=== PATIENT | male | born 1970 | race Caucasian/White ===

== ENCOUNTER 2023-02-07 20:08 | Inpatient (IN) | payer OTHER, SELFPAY ==
--- NOTE | ~2023-02-07 | CT_ITS ---
EXAMINATION: CT HEAD WITHOUT CONTRAST CLINICAL INFORMATION: Stroke COMPARISON: None available. TECHNIQUE: Contiguous axial imaging was performed from the skull base to vertex without intravenous administration of contrast. This CT examination was performed using dose optimization techniques as appropriate, variously including the following: *Automated exposure control *Adjustment of mA and/or kV according to patient size (this includes techniques or standardized protocols for targeted exams where dose is matched to indication/reason for exam; i.e. extremities or head) *Use of iterative reconstruction technique DLP: 699 mGy-cm FINDINGS: There is no midline shift. There is no mass effect. There is no hemorrhage. The basal cisterns appear patent. The posterior fossa is grossly within normal limits. Some possible diffuse scattered areas of decreased attenuation in the white matter which may be consistent with ischemic change.. The region of the basal ganglion and internal capsule and head of caudate region is poorly defined. Ischemic change in these areas cannot be excluded. Area in the posterior occipital region of the white matter could represent a focal area of infarct or ischemia.. There is some possible loss of the yin-white matter differentiation here. Otherwise the yin-white matter differentiation is felt to be maintained. Grossly clear sinuses on the bone windows. CT/CT head/brain wo IV con IMPRESSION: This exam is felt to be abnormal. There is no midline shift or mass effect or hemorrhage. Subtle areas of decreased attenuation in the white matter in the brain as described in this young patient including the central regions which could represent areas of white matter infarction or white matter disease. In addition in the left occipital region some decreased attenuation with some loss of the yin-white matter differentiation could be an area of more acute or subacute infarct. Limited exam from artifact in the area. Recommendation is MRI to further evaluate in this patient with diffusion-weighted imaging.
--- OUTSIDE RECORDS SUMMARY | 2023-02-07 20:13 | XMS_ITS | Continuity of Care Document ---
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 Name Role Phone Brandin Valdez MD Primary Care Physician [phone] Encounter [facility] Date(s): 12/07/22 - 12/07/[address] [address]- Encounter Diagnosis Brain concussion(Final) - 12/07/22 Discharge Disposition: A-D/C Home Attending Physician: Pb Randall DO Admitting Physician: Pb Randall DO Referring Physician: Not on Staff, Referring MD Allergies, Adverse Reactions, Alerts Substance Reaction Severity Status vancomycin Active Immunizations Given and Recorded Vaccine Date Status Refusal Reason SARS-CoV-2 (COVID-19) mRNA-1273 vaccine 03/11/21 R ecorded SARS-CoV-2 (COVID-19) Ad26 vaccine 11/02/20 Record ed Medications aspirin 81 mg oral delayed release tablet 81 mg, 1, tablet, By Mouth, Daily, # 30 tablet, Refills 0, Tot. Refills 0, Maintenance, 09/24/22 16:47:00 EDT, Route to Pharmacy Electronically, [facility], Partial fill upon patient request if the prescription is for a schedule II opioi... Start Date: 09/24/22 Status: Ordered atorvastatin 10 mg oral tablet 1 tablet = 10 mg, By Mouth, Daily, # 30 tablet, 0 Refills, Maintenance, 09/24/22 14:23:00 EDT, Tablet, [facility], Partial fill upon patient request if the prescription is for a schedule II opioid drug., 170.7, cm, 09/23/22 22:36:00 EDT,... Start Date: 09/24/22 Status: Ordered brimonidine 0.2% ophthalmic solution See Instructions, 1 drops Every 8 hours to right eye, # 15 mL, 0 Refills, Maintenance, 09/24/22 14:22:00 EDT, Ophth Solution, [facility], Partial fill upon patient request if the prescription is for a schedule II opioid drug., 1 drops Ev... Start Date: 09/24/22 Status: Ordered carvedilol 3.125 mg oral tablet 3.125 mg, 1, tablet, By Mouth, 2 times a day, # 60 tablet, Refills 0, Tot. Refills 0, Maintenance, 09/24/22 14:22:00 EDT, Route to Pharmacy Electronically, [facility], Partial fill uponpatient request if the prescription is for a schedu... Start Date: 09/24/22 Status: Ordered duloxetine 30 mg oral enteric coated capsule 1 capsule = 30 mg, By Mouth, 2 times a day, # 60 capsule, 0 Refills, Maintenance, 09/24/22 16:47:00EDT, Capsule, [facility], Partial fill upon patient request if the prescription is for a schedule II opioid drug., 170.7, cm, 09/23/22 22... Start Date: 09/24/22 Status: Ordered Entresto 24 mg-26 mg oral tablet 1 tablet, By Mouth, 2 times a day, # 60 tablet, 0 Refills, Maintenance, 09/24/22 14:23:00 EDT, Tablet, [facility] 3, Partial fill upon patient request if the prescription is for a schedule II opioid drug., 1 tablet By Mouth 2 times a day,... Start Date: 09/24/22 Status: Ordered escitalopram 10 mg oral tablet 2 tablet = 20 mg, By Mouth, Daily, # 60 tablet, 0 Refills, Maintenance, 09/24/22 16:46:00 EDT, Tablet, [facility], Partial fill upon patient request if the prescription is for a schedule II opioid drug., 170.7, cm, 09/23/22 22:36:00 EDT,... Start Date: 09/24/22 Status: Ordered LORazepam 0.5 mg oral tablet 1 tablet = 0.5 mg, By Mouth, Daily at bedtime, PRN as needed for anxiety, (filled 01/25/22 14 tabs still has some), Maintenance, 02/20/22 12:54:00 EST, Tablet, ; Start Date: 02/20/22 Status: Ordered metFORMIN 1000 mg oral tablet 1 tablet = 1,000 mg, By Mouth, Daily before breakfast, # 30 tablet, 0 Refills, Maintenance, 09/24/22 16:46:00 EDT, Tablet, [facility], Partial fill upon patient request if the prescription is for a schedule II opioid drug., 170.7, cm, 06... Start Date: 09/24/22 Status: Ordered midodrine 5 mg oral tablet 5 mg, 1, tablet, By Mouth, 3 times a day, # 90 tablet, Refills 0, Tot. Refills 0, Maintenance, 09/24/22 14:23:00 EDT, Route to Pharmacy Electronically, [facility], Partial fill upon patient request if the prescription is for a schedule I... Start Date: 09/24/22 Status: Ordered topiramate 100 mg oral tablet 1 tablet = 100 mg, By Mouth, 2 times a day, # 60 tablet, 0 Refills, Maintenance, 09/24/22 16:46:00 EDT, [facility], Partial fill upon patient request if the prescription is for a schedule II opioid drug., 170.7, cm, 09/23/22 22:3... Start Date: 09/24/22 Status: Ordered Walker See Instructions, # 1 each, Maintenance, One, 05/26/22 16:32:00 EST, Supply Start Date: 05/26/22 Status: Ordered warfarin 5 mg oral tablet See Instructions, Take 2 to 3 tablets by mouth daily as directed by the [facility], # 270 tablet, 1 Refills, Maintenance, 07/23/22 11:24:00 EDT, Tablet, [facility] #[id number], Partial fill upon patient request if the prescription is for a schedule I... Start Date: 07/23/22 Status: Ordered warfarin 5 mg oral tablet 2-3 tablets, By Mouth, Daily, TAKE 2 TO 3 TABLETS PO DAILY DIRECTED BY [facility], # 90 tablet, 9 Refills, Maintenance, 09/25/22 11:40:00 EDT, [facility], Partial fill upon patient request if the prescription is for a schedule II... Start Date: 09/25/22 Status: Ordered warfarin 5 mg oral tablet See Instructions, Take 1 to 2 and 1/2 tablets by mouth daily as directed by the [facility], # 30 tablet, 4 Refills, Maintenance, 04/20/22 15:25:00 EST, Tablet, [facility], Partial fill upon patient request if the prescription is for... Start Date: 04/20/22 Status: Ordered warfarin 5 mg oral tablet See Instructions, take 2-3 tabs by mouth daily as directed by the [facility] clinic, # 270 tablet, 2Refills, Maintenance, 10/25/22 10:01:00 EDT, [facility]/pharmacy #[id number], Partial fill upon patient request if the prescription is for a schedule II opioid drug... Start Date: 10/25/22 Status: Ordered Problem List Condition Confirmation Course Effective Dates Status Health [facility] Informant COVID-19 1 Confirmed 05/11/22 Active Obese class I Confirmed Active Tubular adenoma of colon 2 Confirmed 01/18/22 Active 1Problem added by Discern Expert 2repeat screening colonoscopy in 2028 Results Radiology Reports * Exam Date Time Procedure Performing Provider Status 12/07/22 5:[address] Head/Brain W/O Contrast Mars Medina (Verified) Notes: (CT Head/Brain W/O Contrast) Reason For Exam: Trauma RESULT: CT Head/Brain W/O Contrast CT Head/Brain W/O Contrast INDICATION: Hx of Present Illness: fall; Reason: Trauma; Clinical Question(s): Subarachnoid Hemorrhage; Order Comment: TECHNIQUE: Noncontrast head CT using axial technique and reconstructed in axial and coronal planes.Iterative reconstruction techniques are used to optimize dose and image quality. CTDIvol Head: 45.02 mGy, DLP Head: 810 mGy*cm. COMPARISON: 11/01/2022 CT head. FINDINGS: Metal Flooring Installer view findings, lines and tubes: None. BRAIN AND EXTRA-AXIAL SPACES: No parenchymal hemorrhage, midline shift, or mass effect. Arreguin-white matter differentiation is wellpreserved. No acute infarct. Negative insular ribbon and hyperdense vessel signs. Moderate prominence of the ventricles and sulci consistent with parenchymal volume loss. Mild low-density white matter changes. No subarachnoid hemorrhage. No subdural or epidural collection. Small partially calcified extra-axial lesion along the right frontal (image 29 series 301), probably a small partially calcified meningioma. CALVARIUM, SKULL BASE, AND SOFT TISSUES: No fractures or suspicious bony lesions. The paranasal sinuses and mastoid air cells are clear. Visualized orbits and globes are intact. The extracranial soft tissues are unremarkable. IMPRESSION: No acute intracranial pathology. WSN: [id number] Ordering Physician: Pb Randall Dictated By: Familia Shaw MD Dictated Date/Time: 12/07/22 6:03 pm Reviewed By: Familia Shaw MD Signed By: Familia Shaw MD Signed Date/Time: 12/07/22 6:03 pm Transcribed By: ROBERT Transcribed Date/Time: 12/07/22 6:01 pm Vital Signs Most recent to oldest [Reference Range]: 1 2 Oxygen Saturation [94-100 %] 98 % (12/07/22 5:55 PM) 98 % (12/07/22 3:54 PM) Pulse Rate [55-90 bpm] 68 bpm (12/07/22 5:55 PM) 73 bpm (12/07/22 3:54 PM) Blood Pressure [90-138/55-84 mm Hg] 189/ 119mm Hg *H* (12/07/22 5:55 PM) 204/118mm Hg *H* (12/07/22 3:54 PM) Respiratory Rate [16-30 br/min] 18 br/mi n (12/07/22 5:55 PM) 18 br/min (12/07/22 3:54 PM) Temperature [96.8-100.4 DegF] 98.7 DegF (12/07/22 3:54 PM) Mode of Delivery (Oxygen) Room air (12/07/22 5:55 PM) Room air (12/07/22 3:54 PM) Temperature Route Oral (12/07/22 3:54 PM) Social History Social History Type Response Smoking Status Never (less than 100 in lifetime) entered on: 02/14/22 Sex Patient Care team information Care Team Personnel Name: Oziel Tapia RN Position: S RN Member Role: Primary Care Nurse Name: Aria Patel RN Position: [facility] Nurse Member Role: Primary Care Nurse Name: Summer Donis Position: [facility] RN Member Role: Primary Care Nurse Name: Albert Hernandez RN Position: [facility] RN Member Role: Primary Care Nurse Name: Yaneth Gray RN Position: [facility] SN RN Member Role: Primary Care Nurse Name: Sagrario Eden Position: [facility] RN Member Role: Primary Care Nurse Name: Brandin Valdez MD Position: [facility] Physician - Primary Care Member Role: PCP Address: Address: [address] [place] [address]- Name: Taras Yuen RN Position: [facility] RN Member Role: Primary Care Nurse Name: Aditi Clifton RN Position: [facility] RN Member Role: Primary Care Nurse Name: Mary Fisher Position: [facility] RN Member Role: Primary Care Nurse Name: Fatemeh Saldaña PharmD Position: [facility] Associate Professional Member Role: Lifetime Consulting Provider Address: Address: [address] [place] [address] [place] [address]- Name: Fatemeh Hernandez Position: [facility] Outreach Member Role: Lifetime Consulting Physician Name: Katt Márquez RN Position: [facility] RN Member Role: Primary Care Nurse Name: Nabeel Agarwal MD Position: [facility] Renal MD Member Role: Lifetime Consulting Physician Address: Address: [address] [place] [address] [address] [facility] [place] [address]- Name: Michaela Funes RN Position: [facility] RN Member Role: Primary Care Nurse Name: Susy Jose RN Position: [facility] RN Member Role: Primary Care Nurse Name: Brandon Stevens MD Position: [facility] Renal MD Member Role: Lifetime Consulting Physician Address: Address: [address] [facility] [place] [address]- [place] Name: Arabella Mcghee Position: [facility] Outreach Member Role: Lifetime Consulting Physician Name: Tangela Segovia LPN Position: [facility] RN Member Role: Primary Care Nurse [facility] Attending Position: [facility] ED Attendings Patient Name: Pb Randall DO Position: [facility] Resident Member Role: Admitting Physician Address: Address: [address] [place] [address] [place] [address]- [place] Name: Vicki Seay Position: [facility] ED TA [facility] Name: Glenda Fernandez RN Position: [facility] ED RN W/OE and Tasks Member Role: Patient Care Provider Care Team Related Persons Name: RONIHANS Address: home [address] [place] [address] Name: CHATO PARKS Address: [address] [place] [address]
--- OUTSIDE RECORDS SUMMARY | 2023-02-07 20:13 | XMS_ITS | Continuity of Care Document ---
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 Role Phone Brandin Valdez MD Primary Care Physician Encounter [facility] Date(s): 11/29/21 - 01/27/22 [facility] [address] [place] [id number] Attending Physician: [place] MD Referring Physician: Brandin Valdez MD Allergies, Adverse Reactions, Alerts Substance Reaction Severity Status vancomycin Active Immunizations Given and Recorded Vaccine Date Status Refusal Reason SARS-CoV-2 (COVID-19) mRNA-1273 vaccine 03/11/21 R ecorded SARS-CoV-2 (COVID-19) Ad26 vaccine 11/02/20 Record ed Medications ammonium lactate 12% topical lotion APPLY TO SOLES OF FEET DAILY. AT NIGHT WEAR SOCKS TO BED Start Date: 01/01/22 Status: Ordered atorvastatin 40 mg oral tablet 1 tablet = 40 mg, By Mouth, Daily, # 90 tablet, 0 Refills, Maintenance, 12/27/21 8:23:00 EDT, Tablet, Partial fill upon patient request if the prescription is for a schedule II opioid drug. Start Date: 12/27/21 Status: Ordered carvedilol 25 mg oral tablet 25 mg, 1, tablet, By Mouth, 2 times a day, # 180 tablet, Refills 0, Maintenance, 01/01/22 17:55:00 EDT, Partial fill upon patient request if the prescription is for a schedule II opioid drug. Start Date: 01/01/22 Status: Ordered escitalopram 10 mg oral tablet 1 tablet = 10 mg, By Mouth, Daily, # 90 tablet, 0 Refills, Maintenance, 12/27/21 8:22:00 EDT, Tablet, Partial fill upon patient request if the prescription is for a schedule II opioid drug. Start Date: 12/27/21 Status: Ordered hydrALAZINE 100 mg oral tablet 1 tablet = 100 mg, By Mouth, 3 times a day, with food Start Date: 12/27/21 Status: Ordered hydrOXYzine hydrochloride 25 mg oral tablet 1 tablet = 25 mg, By Mouth, 4 times a day, PRN for anxiety, # 40 tablet, 0 Refills, Maintenance, 12/27/21 8:24:00 EDT, Tablet, Partial fill upon patient request if the prescription is for a schedule II opioid drug. Start Date: 12/27/21 Status: Ordered Insulin Aspart FlexPen 100 units/mL injectable solution INJECT MAX OF 14 UNITS SUBCUTANEOUSLY PER SLIDING SCALE THREE TIMES A DAY Start Date: 01/01/22 Status: Ordered Insulin Glargine Inj 0.3 mL = 30 units, Subcutaneous Injection, Daily at bedtime, 0 Refills, Maintenance, 01/03/22 13:27:00 EDT, Injection, Partial fill upon patient request if the prescription is for a schedule II opioid drug. Start Date: 01/03/22 Status: Ordered loperamide 2 mg oral capsule 2 mg, 1, capsule, By Mouth, Every 3 hours, PRN, # 30 capsule, Refills 0, Tot. Refills 0, Maintenance, Loose Stool, 01/18/22 12:57:00 EDT, Route to Pharmacy Electronically, [facility] #[id number], Partialfill upon patient request if the prescription is fo... Start Date: 01/18/22 Status: Ordered topiramate 50 mg oral tablet 1 tablet = 50 mg, By Mouth, 2 times a day Start Date: 01/01/22 Status: Ordered warfarin 5 mg oral tablet 1 tablet = 5 mg, By Mouth, Daily, # 30 tablet, 1 Refills, Maintenance, 01/18/22 12:56:00 EDT, Tablet, [facility] #[id number], Partial fill upon patient request if the prescription is for a schedule II opioid drug., 168, cm, 01/18/22 7:30:00 EDT, Height, 1... Start Date: 01/18/22 Status: Ordered Problem List Condition Confirmation Course Effective Dates Status Health [facility] Informant Severe obesity Confirmed Active Tubular adenoma of colon 1 Confirmed 01/18/22 Active 1repeat screening colonoscopy in 2028 Patient Care team information Personnel Name: Brandin Valdez MD Address: Address: [address] [place] [address]
--- OUTSIDE RECORDS SUMMARY | 2023-02-07 20:13 | XMS_ITS | Continuity of Care Document ---
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 [address] [place], [place] [id number] Attending Physician: Angel Luis Evans Admitting Physician: AdmtrAngel Luis Referring Physician: Admtr, Ar8 Allergies, Adverse Reactions, Alerts Substance Reaction Severity Status vancomycin Active Immunizations Given and Recorded Vaccine Date Status Refusal Reason SARS-CoV-2 (COVID-19) mRNA-1273 vaccine 03/11/21 R ecorded SARS-CoV-2 (COVID-19) Ad26 vaccine 11/02/20 Record ed Not Given Vaccine Date Status Refusal Reason influenza virus vaccine, inactivated 01/30/22 Not Given Patient Refuses Medications ammonium lactate 12% topical lotion APPLY [...] opioid drug. Start Date: 12/27/21 Status: Ordered Blood Pressure Monitor See Instructions, # 1 each, Maintenance, check blood pressure 3 times a week or anytime when you don't feel well. keep a log book, 01/30/22 9:09:00 EDT, Supply, 168, cm, 01/30/22 8:31:00 EDT, Height,120.6, kg, 01/28/22 22:41:00 EDT, Dry Weight Start Date: 01/30/22 Status: Ordered carvedilol 25 mg oral tablet [...] opioid drug. Start Date: 12/27/21 Status: Ordered fluticasone 50 mcg/inh nasal spray 1 sprays, Nares, Both, 2 times a day, PRN Sinus Symptoms, 0 Refills, Maintenance, 01/29/22 0:10:00 EDT, [place], Partial fill upon patient request if the prescription is for a schedule II opioid drug. Start Date: 01/29/22 Status: Ordered hydrALAZINE 100 mg oral tablet [...] opioid drug. Start Date: 01/03/22 Status: Ordered LORazepam 0.5 mg oral tablet 1 tablet = 0.5 mg, By Mouth, Daily at bedtime, PRN as needed for anxiety, TAKE 1 TABLET BY MOUTH EVERY DAY AT BEDTIME NEEDED FOR 14 DAYS Start Date: 01/29/22 Status: Ordered MiraLax oral powder for reconstitution = 17 Gm, By Mouth, Daily, PRN Constipation, dissolve in water before taking take this once or twicedaily as needed if you do not have bowel movement for 3 days, # 255 Gm, 0 Refills, Acute 02/14/22 12:00:00 EDT, 01/31/22 14:51:00 EDT, REC Powder, B... Start Date: 01/31/22 Stop Date: 02/14/22 Status: Ordered topiramate 50 mg oral tablet 1 tablet = 50 mg, By Mouth, 2 times a day Start Date: 01/01/22 Status: Ordered warfarin 5 mg oral tablet 1 tablet = 5 mg, By Mouth, Daily, # 30 tablet, 1 Refills, Maintenance, 01/18/22 12:56:00 EDT, Tablet, [id number], Partial fill upon patient request if [...] Personnel Name: Brandin Valdez MD Address: Address: [address] [place] [id number]
--- OUTSIDE RECORDS SUMMARY | 2023-02-07 20:13 | XMS_ITS | Continuity of Care Document ---
Author Name Unknown Organization [facility] ter Address [address] [place] [address]- Care Team Providers Care Chemist Water Purification Name Role Phone Brandin Valdez MD Primary Care Physician [phone] Encounter [facility] Date(s): 05/12/22 - 05/13/[address] [address]- Discharge Disposition: A-D/C Home Attending Physician: Rocky Stephens MD Admitting Physician: Rocky Stephens MD Referring Physician: Not on Staff, Referring MD Allergies, Adverse Reactions, Alerts Substance Reaction Severity Status vancomycin Active Immunizations Given and Recorded Vaccine Date Status Refusal Reason SARS-CoV-2 (COVID-19) mRNA-1273 vaccine 03/11/21 R ecorded SARS-CoV-2 (COVID-19) Ad26 vaccine 11/02/20 Record ed Not Given Vaccine Date Status Refusal Reason influenza virus vaccine, inactivated 02/15/22 Not Given Parent Or Guardian Refuses influenza virus vaccine, inactivated 01/30/22 Not Given Patient Refuses Medications Alpha Lipoic 300 mg oral tablet 1 tablet = 300 mg, By Mouth, 2 times a day, for diabetic neuropathy ;stop if dizziness n/v, # 60 tablet, 2 Refills, Maintenance, 04/10/22 10:00:00 EST, Tablet, [id number], Partial fill upon patient request if the prescription is for a schedule... Start Date: 04/10/22 Stop Date: 07/09/22 Status: Ordered atorvastatin 40 mg oral tablet 1 tablet = 40 mg, By Mouth, Daily, 0 Refills, Maintenance, 12/27/21 8:23:00 EDT, Tablet, ; Start Date: 12/27/21 Status: Ordered Daily Vin oral tablet 1 tablet, By Mouth, Daily, Maintenance, 02/20/22 12:52:00 EST, Tablet, ; Start Date: 02/20/22 Status: Ordered escitalopram 10 mg oral tablet 1 tablet = 10 mg, By Mouth, Daily, 0 Refills, Maintenance, 12/27/21 8:22:00 EDT, Tablet, ; Start Date: 12/27/21 Status: Ordered hydrOXYzine hydrochloride 25 mg oral tablet 1 tablet = 25 mg, By Mouth, Daily at bedtime, PRN for anxiety, 0 Refills, Maintenance, 12/27/21 8:24:00 EDT, Tablet, ; Start Date: 12/27/21 Status: Ordered Insulin Aspart FlexPen 100 units/mL injectable solution INJECT MAX OF 14 UNITS SUBCUTANEOUSLY PER SLIDING SCALE THREE TIMES A DAY Start Date: 01/01/22 Status: Ordered Insulin Glargine Inj 0.1 mL = 10 units, Subcutaneous Injection, Daily, 0 Refills, Maintenance, 02/23/22 9:13:00 EST, Injection, Partial fill upon patient request if the prescription is for a schedule II opioid drug. Start Date: 02/23/22 Status: Ordered LORazepam 0.5 mg oral tablet 1 tablet = 0.5 mg, By Mouth, Daily at bedtime, PRN as needed for anxiety, (filled 01/25/22 14 tabs still has some), Maintenance, 02/20/22 12:54:00 EST, Tablet, ; Start Date: 02/20/22 Status: Ordered losartan 25 mg oral tablet 50 mg, 2, tablet, By Mouth, Daily, # 60 tablet, Refills 0, Tot. Refills 0, Maintenance, 02/18/22 7:13:00 EST, Route to Pharmacy Electronically, [facility], Partial fill upon patient request if the prescription is for a schedule II opioid... Start Date: 02/18/22 Status: Ordered metFORMIN 1000 mg oral tablet 1 tablet = 1,000 mg, By Mouth, Daily before breakfast Start Date: 02/15/22 Status: Ordered topiramate 100 mg oral tablet 1 tablet = 100 mg, By Mouth, 2 times a day, Maintenance, 02/20/22 12:52:00 EST, Tablet, ; Start Date: 02/20/22 Status: Ordered warfarin 3 mg oral tablet 3 tablet = 9 mg, By Mouth, Daily, dose to be adjusted as recommended by anticoagulation clinic, # 30 tablet, 0 Refills, Maintenance, 04/20/22 15:26:00 EST, Tablet, [facility], Partial fill upon patient request if the prescription is for... Start Date: 04/20/22 Stop Date: 05/20/22 Status: Ordered warfarin 5 mg oral tablet See Instructions, Take 1 to 2.5 tablets by mouth daily as directed by the [facility], # 225 tablet, 1 Refills, Maintenance, 04/13/22 17:25:00 EST, Tablet, [id number], Partial fill upon patient request if the prescription is for a schedule... Start Date: 04/13/22 Status: Ordered warfarin 5 mg oral tablet See Instructions, Take 1 to 2 and 1/2 tablets by mouth daily as directed by the [facility], # 30 tablet, 4 Refills, Maintenance, 04/20/22 15:25:00 EST, Tablet, [facility], Partial fill upon patient request if the prescription is for... Start Date: 04/20/22 Status: Ordered Problem List Condition Confirmation Course Effective Dates Status Health atus Informant COVID-19 1 Confirmed 05/11/22 Active Obese class II Confirmed Active Tubular adenoma of colon 2 Confirmed 01/18/22 Active 1Problem added by Discern Expert 2repeat screening colonoscopy in 2028 Results Radiology Reports * Exam Date Time Procedure Performing Provider Status 05/13/22 2:48 AM Chest Portable David Li; Auth (Julianne ified) Notes: (Chest Portable) Reason For Exam: trauma to chest with fall;Shortness of Breath RESULT: Chest Portable Chest Portable Hx of Present Illness: Pt states he was here yesterday, tested + covid and states he is [place] tripped over something and hit his head and chest and wasnts to be seen, INR today was 1.1 per pt; Reason: Shortness of Breath; trauma to chest with fall; Clinical Question(s): Pneumothorax; fractures COMPARISON: 05/11/2022. FINDINGS: LINES AND TUBES: None. LUNGS AND PLEURA: Clear lungs. Normal pulmonary vascularity. No pleural effusion. No pneumothorax. HEART, MEDIASTINUM AND JUDI: Prominent cardiomediastinal silhouette. BONES AND SOFT TISSUES: No acute abnormality. IMPRESSION: Prominent cardiac mediastinal silhouette without evidence of acute pulmonary pathology. WSN: [id number] Ordering Physician: Haydee Pablo Dictated By: Macey Jordan MD Dictated Date/Time: 05/13/22 6:45 am Reviewed By: Macey Jordan MD Signed By: Macey Jordan MD Signed Date/Time: 05/13/22 6:45 am Transcribed By: ROBERT Transcribed Date/Time: 05/13/22 6:44 am Vital Signs Most recent to oldest [Reference Range]: 1 2 3 Oxygen Saturation [94-100 %] 100 % (05/13/22 1:26 AM) 96 % (05/12/22 11:45 PM) 99 % (05/12/22 10:10 PM) Pulse Rate [55-90 bpm] 68 bpm (05/13/22 1:26 AM) 74 bpm (05/12/22 11:45 PM) 89 bpm (05/12/22 10:10 PM) Blood Pressure [90-138/55-84 mm Hg] 141/84mm Hg *H* (05/13/22 1:26 AM) 114/69mm Hg (05/12/22 11:45 PM) 113/68mm Hg (05/12/22 10:10 PM) Respiratory Rate [16-30 br/min] 16 br/min (05/13/22 1: AM) Temperature [96.8-100.4 DegF] 98.6 DegF (05/13/22 1: AM) 98.3 DegF (05/12/22 11:45 PM) 99.0 DegF (05/12/22 10:10 PM) Mode of Delivery (Oxygen) Room air (05/13/22 1:26 AM) Room air (05/12/22 11:45 PM) Room air (05/12/22 10:10 PM) Blood pressure sites Arm, left (05/13/22 1:26 AM) Arm, right (05/12/22 11:45 PM) Arm, right (05/12/22 10:10 PM) Temperature Route Oral (05/13/22 1:26 AM) Oral (05/12/22 11:45 PM) Oral (05/12/22 10:10 PM) Social History Social History Type Response Smoking Status Never (less than 100 in lifetime) entered on: 02/14/22 Sex Portable XR Chest Views * [facility] , CIS S: TRANSCRIBE Macey Jordan MD O: VERIFY Event Display: Result: Authored Date: [id number] Chest Portable Hx of Present Illness: Pt states he was here yesterday, tested + covid and states he is in [place] tripped over something and hit his head and chest and wasnts to be seen, INR today was 1.1 per pt; Reason: Shortness of Breath; trauma to chest with fall; Clinical Question(s): Pneumothorax; fractures COMPARISON: 05/11/2022. FINDINGS: LINES AND TUBES: None. LUNGS AND PLEURA: Clear lungs. Normal pulmonary vascularity. No pleural effusion. No pneumothorax. HEART, MEDIASTINUM AND JUDI: Prominent cardiomediastinal silhouette. BONES AND SOFT TISSUES: No acute abnormality. IMPRESSION: Prominent cardiac mediastinal silhouette without evidence of acute pulmonary pathology. WSN: [id number] Ordering Physician: Haydee Pablo Dictated By: Macey Jordan MD Dictated Date/Time: 05/13/22 6:45 am Reviewed By: Macey Jordan MD Signed By: Macey Jordan MD Signed Date/Time: 05/13/22 6:45 am Transcribed By: ROBERT Transcribed Date/Time: 05/13/22 6:44 am Patient Care team information Care Team Personnel Name: Oziel Tapia RN Position: [facility] RN Member Role: Primary Care Nurse Name: Aria Patel RN Position: [facility] AMB Nurse Member Role: Primary Care Nurse Name: Summer Donis Position: [facility] RN Member Role: Primary Care Nurse Name: Yaneth Gray RN Position: [facility] RN Member Role: Primary Care Nurse Name: Sagrario Eden Position: [facility] RN Member Role: Primary Care Nurse Name: Brandin Valdez MD Position: [facility] Physician (General Medicine) Member Role: PCP Address: Address: [address] [place] [id number]- Name: Taras Yuen RN Position: [facility] RN Member Role: Primary Care Nurse Name: Aditi Clifton RN Position: [facility] RN Member Role: Primary Care Nurse Name: Fatemeh Saldaña PharmD Position: [facility] Associate Professional Member Role: Lifetime Consulting Provider Address: Address: [address] [facility] [place] [address]- Name: Fatemeh Hernandez Position: [facility] Outreach Member Role: Lifetime Consulting Physician Name: Katt Márquez RN Position: [facility] RN Member Role: Primary Care Nurse Name: Nabeel Agarwal MD Position: [facility] Renal MD Member Role: Lifetime Consulting Physician Address: Address: [address] [facility] [address] [facility] [place] [address]- [place] Name: Michaela Funes RN Position: [facility] RN Member Role: Primary Care Nurse Name: Arabella Mcghee Position: [facility] Outreach Member Role: Lifetime Consulting Physician Name: Tangela Segovia LPN Position: [facility] RN Member Role: Primary Care Nurse Name: Haydee Pablo NP Position: [facility] Associate Professional Member Role: ED Physician Rug Sizer Address: Address: [address] [place] [address]- Name: Jillian Riojas RN Position: [facility] ED RN W/OE and Tasks Member Role: Patient Care Provider Name: Nena Finnegan [place] Position: [facility] ED TA [facility] Member Role: Roastmaster Name: Rocky Stephens MD Position: [facility] Resident Member Role: Admitting Physician Address: Address: [address] [place] [id number]- Care Team Related Persons Name: HANS TAMAYO Address: home [address] [place] [address] Name: CHATO PARKS Address: [address] [place] [address]
--- OUTSIDE RECORDS SUMMARY | 2023-02-07 20:13 | XMS_ITS | Continuity of Care Document ---
Author Name Unknown Organization [facility] Address [address] [place] [address]- Care Team Providers Care Groundskeeper Supervisor Name Role Phone Brandin Valdez MD Primary Care Physician [phone] Encounter [facility] Date(s): 10/05/21 - 11/04/21 [facility] [address] [place] [id number] Allergies, Adverse Reactions, Alerts No Known Allergies
--- OUTSIDE RECORDS SUMMARY | 2023-02-07 20:13 | XMS_ITS | Continuity of Care Document ---
Author Name Unknown Organization [facility] ter Address [address] [place] [id number] Care Team Providers Care Cordage Sales Representative Name Role Phone Brandin Valdez MD Primary Care Physician Encounter [facility] Date(s): 08/16/22 - 09/24/[address] [id number]- Encounter Diagnosis Dizziness(Final) - 08/16/22 Discharge Disposition: A-D/C Home Attending Physician: Scarlet Friend MD Admitting Physician: Charmaine Winslow MD Referring Physician: Not on Staff, Referring [...] inactivated 01/30/22 Not Given Patient Refuses Medications aspirin 81 mg oral delayed release tablet 81 mg, 1, tablet, By Mouth, Daily, # 30 tablet, Refills 0, Tot. Refills 0, Maintenance, 09/24/22 16:47:00 EDT, Route to Pharmacy Electronically, [facility], Partial fill upon patient request if the prescription is for a schedule II opioi... Start Date: 09/24/22 Status: Ordered atorvastatin 10 mg oral tablet 1 tablet = 10 mg, By Mouth, Daily, # 30 tablet, 0 Refills, Maintenance, 09/24/22 14:23:00 EDT, Tablet, [facility], Partial fill upon patient request if the prescription is for a schedule II opioid drug., 170.7, cm, 09/23/22 22:36:00 EDT,... Start Date: 09/24/22 Status: Ordered brimonidine 0.2% ophthalmic solution See Instructions, 1 drops Every 8 hours to right eye, # 15 mL, 0 Refills, Maintenance, 09/24/22 14:22:00 EDT, Ophth Solution, [facility], Partial fill upon patient request if the prescription is for a schedule II opioid drug., 1 drops Ev... Start Date: 09/24/22 Status: Ordered carvedilol 3.125 mg oral tablet 3.125 mg, 1, tablet, By Mouth, 2 times a day, # 60 tablet, Refills 0, Tot. Refills 0, Maintenance, 09/24/22 14:22:00 EDT, Route to Pharmacy Electronically, [facility], Partial fill uponpatient request if the prescription is for a schedu... Start Date: 09/24/22 Status: Ordered Coreg 6.25 mg oral tablet 3.125 mg, Tablet, By Mouth, 09/24/22 9:00:00 EDT Start Date: 09/24/22 Stop Date: 09/24/22 Status: Completed duloxetine 30 mg oral enteric coated capsule 1 capsule = 30 mg, By Mouth, 2 times a day, # 60 capsule, 0 Refills, Maintenance, 09/24/22 16:47:00EDT, Capsule, [facility], Partial fill upon patient request if the prescription is for a schedule II opioid drug., 170.7, cm, 09/23/22 22... Start Date: 09/24/22 Status: Ordered Entresto 24 mg-26 mg oral tablet 1 tablet, By Mouth, 2 times a day, # 60 tablet, 0 Refills, Maintenance, 09/24/22 14:23:00 EDT, Tablet, [facility], Partial fill upon patient request if the prescription is for a schedule II opioid drug., 1 tablet By Mouth 2 times a day,... Start Date: 09/24/22 Status: Ordered escitalopram 10 mg oral tablet 2 tablet = 20 mg, By Mouth, Daily, # 60 tablet, 0 Refills, Maintenance, 09/24/22 16:46:00 EDT, Tablet, [facility], Partial fill upon patient [...] Tablet, ; Start Date: 02/20/22 Status: Ordered Lovenox 100 mg/mL injectable solution = 100 mg, Subcutaneous Injection, Daily, *Note: Treatment = 1.5mg/kg/day, renal dosing = 1mg/kg/day*, # 7 each, 0 Refills, Acute 10/03/22 16:30:00 EDT, 09/27/22 14:28:00 EDT, [facility], Partial fill upon patient request if the prescript... Start Date: 09/27/22 Stop Date: 10/03/22 Status: Ordered metFORMIN 1000 mg oral tablet 1 tablet = 1,000 mg, By Mouth, Daily before breakfast, # 30 tablet, 0 Refills, Maintenance, 09/24/22 16:46:00 EDT, Tablet, [facility], Partial fill upon patient request if the prescription is for a schedule II opioid drug., 170.7, cm, 06... Start Date: 09/24/22 Status: Ordered midodrine 5 mg oral tablet 5 mg, Tablet, By Mouth, Hold if SBP >150, 09/24/22 9:00:00 EDT Start Date: 09/24/22 Stop Date: 09/24/22 Status: Completed midodrine 5 mg oral tablet 5 mg, 1, tablet, By Mouth, 3 times a day, # 90 tablet, Refills 0, Tot. Refills 0, Maintenance, 09/24/22 14:23:00 EDT, Route to Pharmacy Electronically, [facility], Partial fill upon patient request if the prescription is for a schedule I... Start Date: 09/24/22 Status: Ordered topiramate 100 mg oral tablet 1 tablet = 100 mg, By Mouth, 2 times a day, # 60 tablet, 0 Refills, Maintenance, 09/24/22 16:46:00 EDT, Tablet, [facility], Partial fill upon patient [...] 1 Refills, Maintenance, 07/23/22 11:24:00 EDT, Tablet, [id number], Partial fill upon patient request if the prescription is for a schedule I... Start Date: 07/23/22 Status: Ordered warfarin 5 mg oral tablet See Instructions, Take 1 to 2 and 1/2 tablets by mouth daily as directed by the [facility], # 30 tablet, 4 Refills, Maintenance, 04/20/22 15:25:00 EST, Tablet, [facility], Partial fill upon patient [...] Exam Date Time Procedure Performing Provider Status 09/17/22 3:55 PM NM Tumor SPECT Juancarlos Collins ( Verified) Notes: (NM Tumor SPECT) Reason For Exam: amyloidosis RESULT: NM Tumor SPECT Exam: NM Cardiac Planar and SPECT History: Cardiac amyloidosis. Technique: Planar imaging with 99mTc-PYP was performed with a dual head TaodangpuA SPECT/CT camera equipped with low-energy, high-resolution collimators. The patient received 24.6 mCi of 99mTc-PYP intravenously, and anterior, lateral, and left anterior oblique planar views were obtained at 1 hour over 8 minutes duration. The planar images were acquired with the heart centered in the field of view.A circular MANSOOR was drawn over the heart, copied, and mirrored over the contralateral chest to normalize for the spillover from the ribs. Mean total and absolute counts were measured correcting for background counts, and the fraction of mean counts in the heart DDA-cg-yyiuvufoqnuwh chest MANSOOR was calculated as the yzzym-sl-pffhzdbsjbepw (H/CL) ratio. The single-photon positive emission computed tomography (SPECT) coupled with CT imaging was performed. Comparison studies: CTA chest 04/05/2022, CT abdomen/pelvis 06/30/2022, MRI cardiac 09/08/2022 FINDINGS: The H/CL was calculated to be 1.3. A ratio greater than 1.5 is considered positive for transthyretin-related amyloid deposition. SPECT-CT of the heart demonstrated no significant myocardial uptake. Additional CT findings: Mild cardiomegaly. Stable partially calcified pulmonary nodule measuring 1.4 cm in the lingula abutting the left major fissure (series 1 image 46) with similar appearance since CTA chest of 10/25/2021. Finding likely represents a partially calcified granuloma. Status-post cholecystectomy. IMPRESSION: 1. No evidence of transthyretin-related cardiac amyloidosis; amyloid light-chain cardiac amyloidosis cannot be excluded. 2. No significant incidental findings. I have personally reviewed the images and I agree with this report. WSN: [id number] Ordering Physician: Clint Alfredo Dictated By: Janette Pimnetel DO Dictated Date/Time: 09/20/22 10:12 a Reviewed By: Juana Bennett MD Signed By: Juana Bennett MD Signed Date/Time: 09/20/22 10:17 am Transcribed By: ROBERT Transcribed Date/Time: 09/20/22 9:06 am * Exam Date Time Procedure Performing Provider Status 09/08/22 7:42 PM MRI Cardiac W+W/O Contrast Sheila Buck; Auth (Verified) Notes: (MRI Cardiac W+W/O Contrast) Reason For Exam: Cardiac Amyloidosis Suspected, Further Testing;Other: RESULT: MRI Cardiac W+W/O Contrast Examination: MRI Cardiac W+W/O Contrast. CLINICAL HISTORY:Reason: Other:; Cardiac Amyloidosis Suspected, Further Testing; Clinical Question(s): Other:; Order Comment: Please see Reference Text for complete list of contraindications. 51-year-old gentleman with history of nonischemic cardiomyopathy who is admitted to the hospital with left thalamic hemorrhage. Patient was on Coumadin for history of prior embolic CVA, pulmonary embolism, arterial and venous thrombosis. Previous work-up for coagulopathic condition is negative. Last echocardiogram was on 08/22/2022: The left ventricular size is normal. There is moderate to severe concentric left ventricular hypertrophy. The left ventricular ejection fraction is 35-45%. There is mild to moderate global hypokinesis with regional variation. Consider infiltrative process. Grade I, mild diastolic dysfunction with impaired LV relaxation. The left atrium is moderately dilated. The aortic valve is poorly visualized. There is no aortic stenosis. There is trace aortic regurgitation. The right ventricular size and function appears grossly normal. TECHNIQUE: Cardiac MR infiltrative disease/viability protocol on the SensorWave 1.5 Gissell scanner. Axial T2 dark blood. Short axis triple-IR T2. Multilevel cine FIESTA breathhold imaging performed in the short axis and 2-chamber, 3-chamber, and 4-chamber long axis orientations to evaluate cardiac function. The patient received 38 cc Clariscan (gadoterate meglumine) IV. Dynamic enhancement imaging performed using a rapid multilevel T1-weighted gradient echo sequence during contrast administration. Multiplanar late gadolinium enhancement phase sensitive inversion recovery T1 imaging performed after a 6-7 minute delay. Ventricular volumes based upon semiautomated contouring of cine short axis images performed by myself using Arterys. Normal ranges obtained from the software. COMPARISON: None. FINDINGS: Good image quality was obtained. LV: The left ventricular chamber size was borderline enlarged. There is myocardial thickening: Basal anterior wall 1.7 cm, basal lateral wall 1.6 cm, basal inferior wall 1.6 cm, basal septum 1.6cm. Mid septum 2.1 cm, mid anterior wall 1.3 cm, mid inferior wall 1.4 cm, mid lateral wall 1.4 cm. Apical myocardial thickness ranges from 1.1 to 1.5 cm. There is moderate, marked global hypokinesia, most pronounced in the septum. There are anterior lateral papillary muscle is of prominent size. LV parameters and (normal ranges) [facility] Male/Age 20-65/Field 1.5: Absolute values: Myocardial mass: 296 (85-181) g. End-diastolic volume: 250 (101-236) mL. End-systolic volume: 142 (28-93) mL. Stroke Volume: 108 (66-150) mL. Ejection fraction: 43 (55-74) %. Cardiac output: 7.1 L/min. Normalized values based on provided weight 92 kg, height 165 cm: 2 m-sq body surface area: Myocardial mass index: 145 (46-84) g/m-sq. End-diastolic volume index: 126 (52-112) mL/m-sq. End-systolic volume index: 71 mL/m-sq. Stroke volume index: 55 mL/m-sq. Cardiac index: 3.55 (L/min)/m-sq. Myocardial edema/T2 imaging reveals possible edema in the mid anterior wall, mid lateral wall. Dynamic perfusion imaging reveals no abnormality. Late gadolinium enhancement examination reveals remarkable abnormality: There is predominantly marked amount intramural increased signal in the basal- mid myocardium, image7 series 18, including focal near transmural enhancement at the RV insertion sites on the septum image 8 of series 18. The abnormal signal extends to the endocardium for instance image 9 of series 18, however the predominant pattern appears intramural rather than subendocardial. Such pattern suggests hypertrophic cardiomyopathy with differential including sarcoid, myocarditis, less likely amyloid. There is increased intramural signal in the distal inferior wall. The abnormal signal involves more than 20% of the total myocardium. RV: The RV chamber was of normal size. There was normal wall motion. RV parameters and (normal ranges): Absolute values: End-diastolic volume: 192 (110-243) mL. End-systolic volume: 88 (46-112) mL. Stroke Volume: 104 (60-136) mL. Ejection fraction: 54 (47-63) %. Cardiac output: 6.8 L/min. Normalized values: End-diastolic volume index: 97 (58-115) mL/m-sq. End-systolic volume index: 44 mL/m-sq. Stroke Volume index: 53 mL/m-sq. Cardiac index: 3.41 (L/min)/m-sq. Atria: The right atrium was of normal size. The left atrium was upper normal in size. Valves: There is trace regurgitation jet at the aortic valve, 3 chamber series 10. No abnormal flow jet is seen elsewhere. There is no LVOT narrowing or systolic anterior motion of the mitral valve anterior leaflet. Extracardiac: The pericardium was normal. Trace pericardial effusion. The thoracic aorta was of normal size. The main pulmonary artery measures 3.5 cm diameter, suggesting pulmonary hypertension. Incidental Findings: No significant incidental findings were seen. IMPRESSION: Borderline enlargement left ventricle. Myocardial thickening as detailed above with the mid septum up to 2.1 cm thickness. There is moderate, marked global hypokinesia that is most pronounced in the septum. LVEF 43%. There is remarkable abnormal delayed enhancement signal of the myocardium, with a predominantly intramural pattern, suggesting hypertrophic cardiomyopathy, differential including sarcoidosis, myocarditis, less likely amyloid. The abnormal signal involves more than 20% of the total myocardium. Trace regurgitation jet at the aortic valve. Normal size right ventricle with preserved wall motion. RVEF 54%. Normal biatrial size. The main pulmonary artery measures 3.5 cm diameter, suggesting pulmonary hypertension. WSN: [id number] Ordering Physician: Marcos Vidales Dictated By: Charlotte Escalante MD Dictated Date/Time: 09/09/22 11:02 p Reviewed By: Charlotte Escalante MD Signed By: Charlotte Escalante MD Signed Date/Time: 09/09/22 11:02 pm Transcribed By: ROBERT Transcribed Date/Time: 09/09/22 5:10 pm * Exam Date Time Procedure Performing Provider Status 08/26/22 3:16 PM US Doppler Ext Lower Venous Bilat Bettina Jeong; Arslan (Verified) Notes: (US Doppler Ext Lower Venous Bilat) Reason For Exam: iph with hx of pe screening for dvt to [facility];Other: RESULT: US Doppler Ext Lower Venous Bilat US Doppler Ext Lower Venous Bilat INDICATION: iph with hx of pe screening for dvt to [facility]; Clinical Question(s): Thrombosis COMPARISON: 02/16/2022 IMAGING TECHNIQUE: Ultrasound of the veins from the groin through the calf was performed using grayscale, color, and spectral Doppler ultrasound assessing for complete compressibility and normal flowcharacteristics. FINDINGS: RIGHT LOWER EXTREMITY: Common femoral vein: Patent. No thrombosis. Femoral vein: Patent. No thrombosis. Popliteal vein: Patent. No thrombosis. Gastrocnemius veins: The visualized portions are patent without evidence of thrombosis. Peroneal veins: The visualized portions are patent without evidence of thrombosis. Posterior tibial veins: The visualized portions are patent without evidence of thrombosis. LEFT LOWER EXTREMITY: Common femoral vein: Patent. No thrombosis. Femoral vein: Patent. No thrombosis. Popliteal vein: Patent. No thrombosis. Gastrocnemius veins: The visualized portions are patent without evidence of thrombosis. Peroneal veins: The visualized portions are patent without evidence of thrombosis. Posterior tibial veins: The visualized portions are patent without evidence of thrombosis. OTHER FINDINGS: Incidentally noted is slow flow in the popliteal veins bilaterally. IMPRESSION: No evidence of deep venous thrombosis. WSN: [id number] Ordering Physician: Khari Gibson Dictated By: Ashish Jackman MD Dictated Date/Time: 08/26/22 3:24 pm Reviewed By: Ashish Jackman MD Signed By: Ashish Jackman MD Signed Date/Time: 08/26/22 3:24 pm Transcribed By: ROBERT Transcribed Date/Time: 08/26/22 3:23 pm * Exam Date Time Procedure Performing Provider Status 08/18/22 1:49 AM MRI Brain W+W/O Contrast Balbir Feliciano cox monett (Verified) Notes: (MRI Brain W+W/O Contrast) Reason For Exam: hematoma, ?stroke w/ conversion;Other: RESULT: MRI Brain W+W/O Contrast MRI Brain W+W/O Contrast INDICATION / CLINICAL QUESTION: Reason: Other:; hematoma, ?stroke w conversion; Clinical Question(s): Infarction; Order Comment: Please see Reference Text for complete list of contraindications Infarction TECHNIQUE: MRI of the brain was performed with and without contrast utilizing sagittal and axial T1, axial T2, axial FLAIR, axial SWAN, and axial DWI sequences, and post-contrast 3D T1 NIEVES with multiplanar reformats. 20 mL of Clariscan was administered intravenously. COMPARISON: MRI of 02/15/2022, CT of 08/17/2022. FINDINGS: BRAIN and EXTRA-AXIAL SPACES: There is a 2.1 x 1.5 x 1.9 cm T1 hyperintense masslike lesion in the left thalamus most consistent with an evolving hematoma. There is mild surrounding FLAIR hyperintensity suggesting mild surrounding vasogenic edema. There is no significant mass effect. There is no midline shift, or effacement of the basal cisterns. On diffusion- weighted imaging, there are a few punctate foci of abnormal diffusion in the left anterolateral frontal cortex and left occipital cortex without definite restricted diffusion may represent late subacute infarcts. Extensivefoci of microhemorrhages throughout the supratentorial and infratentorial brain are redemonstrated,mildly progressed since prior examination. Moderate patchy foci of T2 prolongation are seen in the white matter and in the raysa. Chronic lacunar infarcts in the right thalamus and raysa and right inferior cerebellum are redemonstrated. The midline structures are unremarkable. Ventricles, cisterns, and sulci are normal in size and configuration, without hydrocephalus. No abnormal extra-axial fluid collections are seen. Meningeal surfaces are normal. No other abnormal intracranial enhancement is seen. Major intracranial flow voids are present. EXTRACRANIAL SOFT TISSUES: Orbits are unremarkable. There is a mucous retention cyst or polyp in the left maxillary sinus. Paranasal sinuses and mastoids are otherwise unremarkable. BONES: Marrow signal is preserved. IMPRESSION: Evolving left thalamic intraparenchymal hematoma with mild surrounding vasogenic edema. Mildly progressed extensive supratentorial and infratentorial microhemorrhages which may be relatedto hypertensive microhemorrhages, however other etiologies such as cerebral amyloid angiopathy needto be excluded. Clinical correlation and appropriate follow-up is advised. Punctate foci of abnormal diffusion in the left supratentorial brain as described may be related tolate subacute infarcts. Moderate nonspecific white matter T2 hyperintensities likely sequela of chronic microangiopathy. WSN: [id number] Ordering Physician: Angie Carlton Dictated By: Tania Manrique MD Dictated Date/Time: 08/18/22 1:30 pm Reviewed By: Tania Manrique MD Signed By: Tania Manrique MD Signed Date/Time: 08/18/22 1:30 pm Transcribed By: ROBERT Transcribed Date/Time: 08/18/22 12:53 pm * Exam Date Time Procedure Performing Provider Status 08/17/22 8:[address] Head/Brain W/O Contrast Cony Nicolas; Auth (Verified) Notes: (CT Head/Brain W/O Contrast) Reason For Exam: IPH, f/u scan, 9 PM;Other: RESULT: CT Head/Brain W/O Contrast CT Head/Brain W/O Contrast INDICATION: Reason: Other:; IPH, f u scan, 9 PM; Clinical Question(s): Hematoma; Order Comment: TECHNIQUE: Noncontrast head CT using axial technique and reconstructed in axial and coronal planes.Iterative reconstruction techniques are used to optimize dose and image quality. CTDIvol Head: 45.70 mGy, DLP Head: 773 mGy*cm. COMPARISON: Head CT earlier today at 2:49 PM FINDINGS: Clasp Machine Operator view findings, lines and tubes: None. BRAIN AND EXTRA-AXIAL SPACES: Redemonstration of a 2.2 cm maximal dimension intraparenchymal hematoma centered within the left lateral thalamus which is not significantly changed. There is mild edema extending into the posterior limb of the left internal capsule unchanged. There is no associated mass effect or midline shift. No intraventricular extension. No new focus of hemorrhage. Arreguin-white matter differentiation is well preserved without CT signs of acute ischemic infarct. Small chronic lacunar infarct is noted in the right thalamus. Chronic lacunar infarct also noted in theright cerebellum. These findings are similar to prior. Negative insular ribbon sign. Atherosclerotic vascular calcification of the carotid arteries but negative hyperdense vessel sign. Ventricles, sulci, and basilar cisterns are normal. Mild low-density white matter changes. No subarachnoid hemorrhage. No subdural or epidural collection. CALVARIUM, SKULL BASE, AND SOFT TISSUES: No fractures or suspicious bony lesions. These retention cysts in the left greater than right maxillary sinuses, without fluid levels. Remaining paranasal sinuses and mastoids are clear. Visualized orbits and globes are intact. The extracranial soft tissues are unremarkable. IMPRESSION: Stable 2.2 cm intraparenchymal hematoma within the left lateral thalamus. No significant mass effect or edema. No new area of hemorrhage. WSN: [id number] Ordering Physician: Angie Carlton Dictated By: Ashish Thomas MD Dictated Date/Time: 08/17/22 10:42 p Reviewed By: Ashish Thomas MD Signed By: Ashish Thomas MD Signed Date/Time: 08/17/22 10:42 pm Transcribed By: ROBERT Transcribed Date/Time: 08/17/22 10:40 pm * Exam Date Time Procedure Performing Provider Status 08/17/22 3:[address] Head/Brain W/O Contrast Miesha López ra; Auth (Verified) Notes: (CT Head/Brain W/O Contrast) Reason For Exam: ICH patient on coumadin with dyscojugate gaze, ataxia;Other: RESULT: CT Head/Brain W/O Contrast CT Head/Brain W/O Contrast INDICATION: Reason: Other:; ICH patient on coumadin with dysconjugate gaze, ataxia; Clinical Question(s): Other:; ich TECHNIQUE: Noncontrast head CT using axial technique and reconstructed in axial and coronal planes.Iterative reconstruction techniques are used to optimize dose and image quality. CTDIvol Head: 53.23 mGy, DLP Head: 2112 mGy*cm. COMPARISON: CT head 06/30/2022. FINDINGS: Clasp Machine Operator view findings, lines and tubes: None. BRAIN AND EXTRA-AXIAL SPACES: There is focal hyperdense intraparenchymal hematoma in the left thalamus, new from 06/30/2022, measuring 2.4 x 1.4 x 1.6 cm. Margins are slightly indistinct. There is surrounding edema in the left thalamus extending to the posterior limb of the internal capsule and adjacent white matter of the temporal stem. However, there is no significant mass effect, midline shift, or effacement of basal cisterns. Arreguin-white matter differentiation is well preserved without CT signs of acute ischemic infarct. Small chronic lacunar infarct is noted in the right thalamus. Chronic lacunar infarct also noted in theright cerebellum. These findings are similar to prior. Negative insular ribbon sign. Atherosclerotic vascular calcification of the carotid arteries but negative hyperdense vessel sign. Ventricles, sulci, and basilar cisterns are normal. Mild low-density white matter changes. No subarachnoid hemorrhage. No subdural or epidural collection. CALVARIUM, SKULL BASE, AND SOFT TISSUES: No fractures or suspicious bony lesions. These retention cysts in the left greater than right maxillary sinuses, without fluid levels. Remaining paranasal sinuses and mastoids are clear. Visualized orbits and globes are intact. The extracranial soft tissues are unremarkable. IMPRESSION: New 2.4 cm left thalamic hematoma with surrounding edema. This critical result was communicated to Dr. Janusz STEWART on 08/17/2022 3:23 PM and it was ascertained that the content and urgency of the report was understood at the time of direct communication. WSN: [id number] Ordering Physician: Janusz Wellington Dictated By: Vicki Ray MD Dictated Date/Time: 08/17/22 3:27 pm Reviewed By: Vicki Ray MD Signed By: Vicki Ray MD Signed Date/Time: 08/17/22 3:27 pm Transcribed By: ROBERT Transcribed Date/Time: 08/17/22 3:13 pm * Exam Date Time Procedure Performing Provider Status 08/17/22 3:[address] Angio Neck Deloris López; Arslan (Julianne ified) Notes: (CT Angio Neck) Reason For Exam: ICH patient on coumadin with dyscojugate gaze, ataxia;Other: RESULT: CT Angio Neck CT Angio Head, CT Angio Neck Reason: Other:; ICH patient on coumadin with dyscojugate gaze, ataxia; Clinical Question(s): Other:; ich; Order Comment: / Other: TECHNIQUE: CT angiogram of the head and neck was performed after bolus administration of intravenous contrast. 100 mL of Omnipaque 300 was administered intravenously. Coronal and sagittal MIP reformatted images were obtained. Additional 3-D images were created on a separate workstation under concurrent supervision by the attending radiologist. All stenoses are measured using NASCET criteria. Weight-based protocol using automatic tube modulation was used to optimize exposure parameters. RADIATION DOSE PARAMETERS: CTDIvol Head: 53.23 mGy, DLP Head: 2112 mGy*cm. COMPARISON: Noncontrast CT head performed concurrently. CTA of the head and neck dated 06/30/2022. FINDINGS: CTA OF THE NECK: Arch: There is a three vessel aortic arch. There is mild atherosclerotic plaque of the aortic arch,but origins of the supra aortic vessels are patent. Right carotid system: The common carotid and cervical internal carotid arteries are patent. There is calcified atherosclerotic plaque at the carotid bifurcation, but no ICA stenosis (0%) by NASCET criteria. Left carotid system: The common carotid and cervical internal carotid arteries are patent. There iscalcified atherosclerotic plaque at the carotid bifurcation, but no ICA stenosis (0%) by NASCET criteria. There is a [id number] vertebral artery system. Right vertebral: No significant stenosis. No evidence of dissection or aneurysm. Left vertebral: No significant stenosis. No evidence of dissection or aneurysm. Other: Soft tissues and bones: No evidence of lymphadenopathy. Prominence of the palatine tonsils is againnoted, left greater than right. Enlarged pulmonary artery could reflect pulmonary hypertension. Thethyroid is unremarkable. Visualized lungs are blurred by motion artifact, without significant superi mposed airspace opacity. No acute osseous abnormality. CTA OF THE HEAD: Anterior circulation: Bilateral intracranial ICAs demonstrate atherosclerotic calcification, without stenosis. Bilateral MAURI and MCA branches are patent. There is no significant stenosis, proximal cutoff, aneurysm, or vascular malformation. Hypoplastic right A1 segment, anatomic variant. Posterior circulation: Bilateral intracranial vertebral arteries, the basilar artery, and bilateralsuperior cerebellar and posterior cerebral branches are patent. There is no significant stenosis, proximal cutoff, aneurysm, or vascular malformation. Veins: Major dural venous sinuses are patent. Other: Soft tissues and bones: Left thalamic hemorrhage with surrounding edema. Please refer to the separate head CT. No active extravasation is demonstrated. Orbits are unremarkable. Mucous retention cysts in the left maxillary sinus and right maxillary sinus. IMPRESSION: No proximal occlusion or high grade stenosis in the major arteries of the head and neck. Left thalamic hemorrhage with surrounding edema. Please refer to separate head CT. Enlarged pulmonary artery suggesting pulmonary hypertension. WSN: [id number] Ordering Physician: Janusz Wellington Dictated By: Kailey Guerrero MD Dictated Date/Time: 08/17/22 3:57 pm Reviewed By: Kailey Guerrero MD Signed By: Kailey Guerrero MD Signed Date/Time: 08/17/22 3:57 pm Transcribed By: ROBERT Transcribed Date/Time: 08/17/22 3:12 pm * Exam Date Time Procedure Performing Provider Status 08/17/22 3:[address] Angio Head Deloris López; Arslan (Julianne ified) Notes: (CT Angio Head) Reason For Exam: ICH patient on coumadin with dyscojugate gaze, ataxia;Other: RESULT: CT Angio Head CT Angio Head, CT Angio Neck Reason: Other:; ICH patient on coumadin with dyscojugate gaze, ataxia; Clinical Question(s): Other:; ich; Order Comment: / Other: TECHNIQUE: CT angiogram of the head and neck was performed after bolus administration of intravenous contrast. 100 mL of Omnipaque 300 was administered intravenously. Coronal and sagittal MIP reformatted images were obtained. Additional 3-D images were created on a separate workstation under concurrent supervision by the attending radiologist. All stenoses are measured using NASCET criteria. Weight-based protocol using automatic tube modulation was used to optimize exposure parameters. RADIATION DOSE PARAMETERS: CTDIvol Head: 53.23 mGy, DLP Head: 2112 mGy*cm. COMPARISON: Noncontrast CT head performed concurrently. CTA of the head and neck dated 06/30/2022. FINDINGS: CTA OF THE NECK: Arch: There is a three vessel aortic arch. There is mild atherosclerotic plaque of the aortic arch,but origins of the supra aortic vessels are patent. Right carotid system: The common carotid and cervical internal carotid arteries are patent. There is calcified atherosclerotic plaque at the carotid bifurcation, but no ICA stenosis (0%) by NASCET criteria. Left carotid system: The common carotid and cervical internal carotid arteries are patent. There iscalcified atherosclerotic plaque at the carotid bifurcation, but no ICA stenosis (0%) by NASCET criteria. There is a [id number]-pdzg-pwzcygyv vertebral artery system. Right vertebral: No significant stenosis. No evidence of dissection or aneurysm. Left vertebral: No significant stenosis. No evidence of dissection or aneurysm. Other: Soft tissues and bones: No evidence of lymphadenopathy. Prominence of the palatine tonsils is againnoted, left greater than right. Enlarged pulmonary artery could reflect pulmonary hypertension. Thethyroid is unremarkable. Visualized lungs are blurred by motion artifact, without significant superi mposed airspace opacity. No acute osseous abnormality. CTA OF THE HEAD: Anterior circulation: Bilateral intracranial ICAs demonstrate atherosclerotic calcification, without stenosis. Bilateral MAURI and MCA branches are patent. There is no significant stenosis, proximal cutoff, aneurysm, or vascular malformation. Hypoplastic right A1 segment, anatomic variant. Posterior circulation: Bilateral intracranial vertebral arteries, the basilar artery, and bilateralsuperior cerebellar and posterior cerebral branches are patent. There is no significant stenosis, proximal cutoff, aneurysm, or vascular malformation. Veins: Major dural venous sinuses are patent. Other: Soft tissues and bones: Left thalamic hemorrhage with surrounding edema. Please refer to the separate head CT. No active extravasation is demonstrated. Orbits are unremarkable. Mucous retention cysts in the left maxillary sinus and right maxillary sinus. IMPRESSION: No proximal occlusion or high grade stenosis in the major arteries of the head and neck. Left thalamic hemorrhage with surrounding edema. Please refer to separate head CT. Enlarged pulmonary artery suggesting pulmonary hypertension. 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 [employer] called as pt alondra lightheaded and passed out, denies hitting his head. POC glucose was not checked but pt was given OJx2 by [employer]; Reason: Shortness of Breath; Clinical Question(s): CHF COMPARISON: 05/13/2022 FINDINGS: No acute cardiopulmonary process IMPRESSION: No acute abnormality. Normal exam WSN: [id number] Ordering Physician: Brandon Moore Dictated By: Juancarlos Mota MD Dictated Date/Time: 08/16/22 9:46 am Reviewed By: Juancarlos Mota MD Signed By: Juancarlos Mota MD Signed Date/Time: 08/16/22 9:46 am Transcribed By: ROBERT Transcribed Date/Time: 08/16/22 9:45 am Vital Signs Most recent to oldest [Reference Range]: 1 2 3 4 Height 170.7 cm (09/23/22 10:36 PM) 170.7 cm (09/23/22 10:36 PM) 170.7 cm (09/23/22 8:15 PM) Weight 95.3 kg (09/23/22 6:39 AM) 91.1 kg (09/07/22 6:00 AM) 92.7 kg (08/31/22 7:53 AM) Oxygen Saturation [94-100 %] 100 % (09/24/22 3:00 PM) 100 % (09/24/22 11:00 AM) 100 % (09/24/22 8:00 AM) Pulse Rate [55-90 bpm] 84 bpm (09/24/22 3:00 PM) 63 bpm (09/24/22 11:00 AM) 62 bpm (09/24/22 9:05 AM) 62 bpm (09/24/22 9:05 AM) Body Mass Index [18.5-24.99 kg/m2] 33.01 kg/m2 *>HHI* (08/23/22 8:34 AM) 31.23 kg/m2 *>HHI* (08/17/22 12:24 PM) Blood Pressure [90-138/55-84 mm Hg] 146/94mm Hg *H* (09/24/22 3:00 PM) 157/91mm Hg *H* (09/24/22 11:00 AM) 149/81mm Hg *H* (09/24/22 9:05 AM) 149/81mm Hg *H* (09/24/22 9:05 AM) Respiratory Rate [16-30 br/min] 18 br/min (09/24/22 3:00 PM) 18 br/min (09/24/22 11:00 AM) 18 br/min (09/24/22 8:00 AM) Temperature [96.8-100.4 DegF] 98.1 DegF (09/24/22 3:00 PM) 97.5 DegF (09/24/22 11:00 AM) 97.2 DegF (09/24/22 8:00 AM) Liters per Minute 0 L/min (08/17/22 8:00 PM) Mode of Delivery (Oxygen) Room air (09/24/22 3:00 PM) Room air (09/24/22 11:00 AM) Room air (09/24/22 8:00 AM) Blood pressure sites Arm, left (09/24/22 3:00 PM) Arm, left (09/24/22 11:00 AM) Arm, left (09/24/22 8:00 AM) Temperature Route Temporal (09/24/22 3:00 PM) Temporal (09/24/22 11:00 AM) Temporal (09/24/22 8:00 AM) Dry Weight 91 kg (08/17/22 12:24 PM) Weight Obtained Via Bed scale (09/07/22 6:00 AM) Bed scale (08/31/22 7:53 AM) Bed scale (08/30/22 8:11 AM) Social History Social History Type Response Smoking Status Never (less than 100 in lifetime) entered on: 02/14/22 Sex History and physical note * Angie Pina: MODIFY, MODIFY, MODIFY, MODIFY, MODIFY, MODIFY, MODIFY, MODIFY, PERFORM, MODIFY, MODIFY, MODIFY, MODIFY, MODIFY, MODIFY Event Display: History and Physical Hospital Authored Date: Patient: ??AYDEN TAMAYO ? Age:??51 Years?Sex:??Male?:??1970?? Chief Complaint/Reason for Consultation L thalamic IPH History of Present Illness 51 yo male with PMH PE on coumadin, htn, hld, dm, neuropathy, CHF, with hx stroke (suspected coagulopathy with venous and arterial thrombosis on coumadin) who was admitted to [facility] on 08/16 with dizziness, now found to have IPH, being admitted to [facility]U. ?? History obtained via chart. Pt initially presented to [facility] on 08/16 with dizziness. He works at [facility] [email or web address] and states he developed dizziness with standing. He through his blood sugar was low anddrank orange juice with slight improvement but not resolution. In the ED, trop was 46 and repeat 35. He had INR 3.7. He was given asa 975 mg..??He did not undergo head imaging. He was given 1 L IVF and admitted to the obs unit for dizziness of unclear etiology. SBP max 216. ?? On 08/17, neurology was consulted for continued dizziness. He had no head imaging in [facility] and thus STAT CTH/A was done by neurology team??and he was found to have L thalamic IPH. His INR was 4.4. He wasordered for STAT K centra and Vit K and was admitted to [facility]CCU. He was started on nicardipine for SBP<150. ? Review of Systems ?General: Denies weight changes, fatigue, fever, chills ?Skin: denies rash, bites ?Eyes: denies visual changes, blurry vision ?ENT: denies hearing changes ?Cardiovascular: denies chest pain ?Respiratory: denies SOB ?GI: denies abdominal pain, nausea, vomiting, diarrhea ?: denies loss of bladder or bowel function ?Musculoskeletal: denies muscle weakness, swelling ?Neurological: +blurry vision;??denies headache, dizziness, , hearing changes, trouble swallowing, slurring, word finding difficulties, weakness, paresthesias Objective Measurements?? Height: 170.7 cm (08/17/22) Weight: 91 kg (08/17/22) Dry Weight: 91 kg (08/17/22) Body Mass Index:??31.23 kg/m2??Critical (08/17/22) ? Vital Signs?? Temperature: 97.8 DegF (08/17/22 13:15:00) Temperature Route: Oral (08/17/22 13:15:00) Pulse Rate: 71 bpm (08/17/22 13:15:00) Respiratory Rate: 17 br/min (08/17/22 13:15:00) Vented: No (08/17/22 11:07:00) Systolic Blood Pressure:??181 mm Hg??High (08/17/22 13:15:00) Diastolic Blood Pressure:??97 mm Hg??High (08/17/22 13:15:00) Blood pressure sites: Arm, left (08/17/22 13:15:00) Mean Arterial Pressure: 125 mm Hg (08/17/22 13:15:00) Pulse Pressure: 84 mm Hg (08/17/22 13:15:00) Oxygen Saturation: 97 % (08/17/22 13:15:00) Mode of Delivery (Oxygen): Room air (08/17/22 13:15:00) Early Warning Score: 2 (08/17/22 13:15:53) ? Ventilator Settings?? No qualifying data available. ? Intake/Output? No Data Available ? Physical Exam ?? General Exam Appearance: Appears comfortable and appropriate, in no acute distress. Appears stated age.? HEENT: Normocephalic, atraumatic.? Cardiac: Regular rate and rhythm ?? Respiratory: Normal inspiration and expiration ?? Rheumatologic: No swelling, deformities or tenderness ?? Dermatologic: No significant skin lesions, rash, or bruising ?? Extremities: No edema or stasis changes ?? Psychiatric: Not depressed or anxious. Full and appropriate Affect. ?? Neurologic: Mentation: Awake, alert. Patient is oriented to person, place, time, and situation. speech clear. 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 VF c/o blurry vision on right, but evans are full Motor: Normal bulk/tone. Strength 5/5 UEs and LEs. Nutritional Services Director equal. RUE drift Sensation: In tact to light touch of UEs and LEs, no extinction to DTS Coordination: Finger to nose smooth on L, ?ataxic on R Gait:?? deferred Assessment/Plan 51 yo male with PMH PE on coumadin, htn, hld, dm, neuropathy, CHF, with hx stroke (suspected coagulopathy with venous and arterial thrombosis on coumadin) who was admitted to [facility] on 08/16 with dizziness, who neurology was asked to see 08/17 for continued dizziness and obtained CTH/A which revealed L thalamic IPH,??given STAT K centra and Vit K, started on nicardipine gtt and now??being admitted to NCCU. ?? Neuro L thalamic IPH -??PBD 1??(sx onset/presentation 08/16) - ICH score 0 - ?stroke with conversion vs hypertensive IPH vs lesion?- INR 4.4 Depression - q1h neurochecks - s/p STAt k centra and Vit K - repeat CTH 6 hours - 9 PM - MRI brain with and without TAMAR - SBP <150, nicardipine prn?? - HOB >30 degrees - telemetry - hold antithrombotics - NPO until cleared - PM&R on hold currently - STAT CTH w/ any change in mental status - DVT prophylaxis: venodynes for now, hold SQH? - continue escitalopram - continue topamax? CV HTN HLD CHF Hypertensive emergency , SBP max 216 - monitor, tele - SBP goal??< 150, nicardipine gtt if needed - statin - continue carvedilol, hydralizine, losartan - MAP >65? Pulm?? Hx PE on AC - spO2 goal >92%?? -??holding AC in the setting of IPH ?? Renal?? No active issues, Cr??1.2 - monitor I&O - monitor BUN/Cr?? - K goal >4 and Mag>2, electrolyte protocol - monitor Na, stable. ?? No issues - bladder scan q4h, straight cath for retention >400 cc, borja for retention >800 cc? GI/FEN No issues - FEN:??passed bedside swallow by RN - resume diabetic diet - Maintain bowel regimen for goal BM??qod? Heme?? Supratherapeutic INR - s/p kcentra and Vit K for INR 4.4 and IPH - repeat labs at 9 PM -??goal??Hgb>7 - Goal INR<1.5 and??Plt??> 100,000 ?? Endo?? Hx DM?? - monitor - Goal glucose 120-180 - ISS - lantus 10u qd - POC tid before meals and??bedtime ?? ID?? No issues - afebrile, no infectious concerns - monitor - if Temp 101 or greater, will send UA, CXR, blood cx and sputum cx? ICU Quality Measures DVT ppx: venodynes, hold SQH FEN: passed bedside swallow by RN, resume diabetic diet Lines/tubes: PIVs Restraints:??not needed Code: FULL?? Emergency contact:?? CHATO PARKS?Relation to Pt: Mother ?[address] ? [place] [address] ?Cell ? dispo:??ICU level care ? Discussed and seen with NCCU attending, ??Arden Pt is critically ill due IPH/AC needing reversal, I spent ?20 ??minutes of non overlapping critical care time evaluating and managing the patient as part of a split/shared visit with Dr. Tolbert/Karine/Arden ? Histories Allergies Allergies ?(Active and Proposed Allergies Only) vancomycin? (Severity: Unknown severity, Onset: Unknown) ? Past Medical History/Problem List Active Problems??(5) COVID-19 Dizziness Obese class I Tubular adenoma of colon Urinary tract infection ? Past Surgical History Colonoscopy: 01/17/22 Esophagogastroduodenoscopy and biopsy: 01/17/22 Cholecystectomy: 02/14/14 ? Social History Alcohol Details:??Use: Current. ??Frequency: 1-2 times per month. ??Type: Beer. Employment/School Details:??Status: Employed. Exercise Details:??Self assessment: Fair condition. ??Exercise frequency: 1-2 times/week. ??Exercise type: Walking. Sexual Details:??Sexually involved in last 6 months: No. Substance Abuse Details:??Use: Never. Tobacco Details:??Use: Never (less than 100 in lifetime). Electronic Cigarette/Vaping Details:??Electronic Cigarette Use: Never. ? Family History Father: Cancer of colon ? Medications Home Medications Atorvastatin (atorvastatin 40 mg oral tablet)?1?tab(s)?40?Milligram?By Mouth?Daily Carvedilol (carvedilol 6.25 mg oral tablet)?6.25?Milligram?1?tablet?By Mouth?2 times a day Duloxetine (duloxetine 20 mg oral enteric coated capsule)?1?capsule?20?Milligram?By Mouth?2 times a day Durable Medical Equipment (Walker)?See Instructions?One Escitalopram (escitalopram 10 mg oral tablet)?2?tab(s)?20?Milligram?By Mouth?Daily Insulin Aspart (Insulin Aspart FlexPen 100 units/mL injectable solution)?INJECT MAX OF 14 UNITS SUBCUTANEOUSLY PER SLIDING SCALE THREE TIMES A DAY Insulin Glargine (Insulin Glargine Inj)?0.1?Milliliter?10?unit(s)?Subcutaneous Injection?Daily Lorazepam (LORazepam 0.5 mg oral tablet)?1?tab(s)?0.5?Milligram?By Mouth?Daily atbedtime?as needed?as needed for anxiety?(filled 01/25/22 14 tabs still has some) Losartan (losartan 25 mg oral tablet)?50?Milligram?2?tablet?By Mouth?Daily Metformin (metFORMIN 1000 mg oral tablet)?1?tab(s)?1,000?Milligram?By Mouth?Dailybefore breakfast Multivitamin (Daily Vin oral tablet)?1?tab(s)?By Mouth?Daily Topiramate (topiramate 100 mg oral tablet)?1?tab(s)?100?Milligram?By Mouth?2 times a day Warfarin (warfarin 5 mg oral tablet)?See Instructions?Take 1 to 2 and 1/2 tablets by mouth daily as directed by the [facility] Warfarin (warfarin 3 mg oral tablet)?3?tab(s)?9?Milligram?By Mouth?Daily?for 30?Days?dose to be adjusted as recommended by anticoagulation clinic Warfarin (warfarin 5 mg oral tablet)?See Instructions?Take 2 to 3 tablets by mouth daily as directed by the [facility]madin Clinic ? Inpatient Medications Medications (19) Active SCHEDULED: (12) Atorvastatin 40 mg Tablet (Lipitor 40 mg oral tablet) ??40 mg, By Mouth, Daily at bedtime Carvedilol 6.25 mg Tablet (Coreg 6.25 mg oral tablet) ??6.25 mg, By Mouth, 2 times a day Escitalopram 10 mg Tablet (escitalopram 10 mg oral tablet) ??20 mg, By Mouth, Daily hydrALAZINE 25 mg Tablet (hydrALAZINE 25 mg oral tablet) ??25 mg, By Mouth, 2 times a day Insulin Glargine 100 units/mL Inj (Lantus Inj) ??10 units 0.1 mL, Subcutaneous Injection, Daily in AM Insulin Lispro 100 units/mL Inj (3mL) (Insulin LISPRO Sliding Scale) ??2-10 units, Subcutaneous Injection, 3 times a day before meals KCentra (Prothrombin Complex Concentrate) (KCentra Blood Product) ??1,500 units, IVPB, Once Losartan 50 mg Tablet (losartan 50 mg oral tablet) ??50 mg, By Mouth, Daily Multivitamin Tablet ??1 tablet, By Mouth, Daily NaCl 0.9% Flush 3ml (NaCL 0.9% Flush) ??3 mL, IV Push, Every 8 hours Phytonadione 10 mg Inj (Vitamin K IVPB) ??10 mg 1 mL, IVPB, Once Topiramate 100 mg Tablet (Topiramate Tablet) ??100 mg, By Mouth, 2 times a day CONTINUOUS: (1) NICARdipine 2.5 mg/mL Cont IV 25 mg + NaCL 0.9% (250 mL) Cont IV 250 mL (NiCARDipine Cont IV 25 mg + NaCL 0.9% for Titration 250 mL) ??250 mL, IV Infusion PRN: (6) Acetaminophen 325 mg Tablet (Acetaminophen Tablet) ??650 mg, By Mouth, Every 4 hours Lorazepam 0.5 mg Tablet (LORazepam 0.5 mg oral tablet) ??0.5 mg, By Mouth, Daily at bedtime Melatonin 3 mg Tablet (Melatonin Tablet) ??3 mg, By Mouth, Daily at bedtime NaCl 0.9% Flush 3ml (NaCL 0.9% Flush) ??3 mL, IV Push, Every 8 hours Polyethylene Glycol 17 Gm Powder (MiraLax Powder) ??17 Gm 1 pack/packet, By Mouth, Daily Senna 8.6 mg / Docusate 50 mg tablet (Docusate/Senna Tablet) ??1 tablet, By Mouth, 2 times a day ? Results Recent Labs BLOOD COUNT & DIFF WBC 11.8 k/mm3 (High)?? 08/16/2022 08:17 RBC 4.89 m/mm3 ()?? 08/16/2022 08:17 Hgb 12.8 Gm/dL (Low)?? 08/16/2022 08:17 Hct 39.6 % (Low)?? 08/16/2022 08:17 MCV 81.0 femtoliters ()?? 08/16/2022 08:17 MCH 26.2 pg (Low)?? 08/16/2022 08:17 MCHC 32.3 g/dL (Low)?? 08/16/2022 08:17 Platelet Count 284 k/mm3 ()?? 08/16/2022 08:17 RDW-SD 43.8 femtoliters ()?? 08/16/2022 08:17 MPV 11.8 femtoliters ()?? 08/16/2022 08:17 Nucleated RBC (Automated) 0.0 #/100 WBC'S ()?? 08/16/2022 08:17 Abs. NRBC 0.0 k/mm3 ()?? 08/16/2022 08:17 Abs. Neut 8.8 k/mm3 (High)?? 08/16/2022 08:17 Abs. Lymph 1.9 k/mm3 ()?? 08/16/2022 08:17 Abs. [place] 0.8 k/mm3 ()?? 08/16/2022 08:17 Abs. Eo 0.2 k/mm3 ()?? 08/16/2022 08:17 Abs. Baso 0.1 k/mm3 ()?? 08/16/2022 08:17 Neut % 74.3 % ()?? 08/16/2022 08:17 Lymph % 16.2 % ()?? 08/16/2022 08:17 [place] % 7.1 % ()?? 08/16/2022 08:17 Eos % 1.5 % ()?? 08/16/2022 08:17 Baso % 0.4 % ()?? 08/16/2022 08:17 Imm Gran 0.5 % ()?? 08/16/2022 08:17 Abs. Imm Gran 0.1 k/mm3 ()?? 08/16/2022 08:17 ?? CARDIAC Nt-Probnp 2426 pg/mL (High)?? 08/16/2022 08:18 High Sensitivity Troponin (HSTnT) 37 ng/L (High)?? 08/16/2022 13:09 ?? CHEM GENERAL Sodium 139 mmol/L ()?? 08/16/2022 08:18 Potassium 3.9 mmol/L ()?? 08/16/2022 08:18 Chloride 103 mmol/L ()?? 08/16/2022 08:18 Bicarbonate Level 22 mmol/L ()?? 08/16/2022 08:18 Anion Gap 14 ()?? 08/16/2022 08:18 Glucose Level 188 mg/dL (High)?? 08/16/2022 08:18 Glucose, POC 112 mg/dL (High)?? 08/17/2022 09:09 BUN 33 mg/dL (High)?? 08/16/2022 08:18 Creatinine-Blood 1.3 mg/dL (High)?? 08/16/2022 08:18 Estimated GFR Creatinine 66 ML/MIN/1.73 M2 ()?? 08/16/2022 08:18 Calcium 9.9 mg/dL ()?? 08/16/2022 08:18 Protein, Total 6.9 Gm/dL ()?? 08/16/2022 08:18 Albumin 4.1 Gm/dL ()?? 08/16/2022 08:18 AG Ratio 1.5 ()?? 08/16/2022 08:18 Alkaline Phosphatase 87 units/L ()?? 08/16/2022 08:18 AST (SGOT) 20 units/L ()?? 08/16/2022 08:18 ALT (SGPT) 35 units/L ()?? 08/16/2022 08:18 Bilirubin, Total 0.5 mg/dL ()?? 08/16/2022 08:18 ?? COAG INR 4.4 (High)?? 08/17/2022 05:48 Protime (PT) 42.1 seconds (High)?? 08/17/2022 05:48 ?? ENDOCRINE/TUMOR MARKER TSH 2.14 uIU/mL ()?? 08/16/2022 08:18 ?? HEME OTHER Hold Lavender Top SPECIMEN DISCARDED AFTER 24 HOURS. ()?? 08/17/2022 09:45 Hold Blue Top SPECIMEN DISCARDED AFTER 4 HOURS. ()?? 08/17/2022 09:45 ?? MISC. CHEMISTRY Hold Green Top SPECIMEN DISCARDED AFTER 1 WEEK ()?? 08/17/2022 09:45 Hold Gel Top SPECIMEN DISCARDED AFTER 1 WEEK ()?? 08/17/2022 09:45 ?? UA/URINALYSIS Appear/Color, Urine YELLOW ()?? 08/16/2022 06:41 Specific [place], Urine 1.019 ()?? 08/16/2022 06:41 pH, Urine 6.0 ()?? 08/16/2022 06:41 Albumin, Urine 1+ (Abnormal)?? 08/16/2022 06:41 Glucose, Urine NEGATIVE ()?? 08/16/2022 06:41 Ketones, Urine NEGATIVE ()?? 08/16/2022 06:41 Bilirubin, Urine NEGATIVE ()?? 08/16/2022 06:41 Hemoglobin, Urine NEGATIVE ()?? 08/16/2022 06:41 Nitrite, Urine NEGATIVE ()?? 08/16/2022 06:41 Leukocyte, Urine 2+ (Abnormal)?? 08/16/2022 06:41 Urobilinogen NORMAL mg/dL ()?? 08/16/2022 06:41 WBC's, Urine 33 /HPF (High)?? 08/16/2022 06:41 RBC's, Urine 2 /HPF ()?? 08/16/2022 06:41 Bacteria HEAVY HPF (Abnormal)?? 08/16/2022 06:41 Squamous Epith <1 /HPF ()?? 08/16/2022 06:41 Mucus SLIGHT /LPF ()?? 08/16/2022 06:41 Hold Urine Culture Testing available 48 hours from time of collection. ()?? 08/16/2022 06:41 ?? URINE OTHER Est Creatinine Clearance 64.72 mL/min ()?? 08/17/2022 12:28 ?? VIROLOGY COVID-19 by RT-PCR NEGATIVE ()?? 08/16/2022 12:10 ? CTH IMPRESSION: ?? New 2.4 cm left thalamic hematoma with surrounding edema. ? CTA head/neck IMPRESSION: ? No proximal occlusion or high grade stenosis in the major arteries of the head and neck.?? Left thalamic hemorrhage with surrounding edema. Please refer to separate head CT. Enlarged pulmonary artery suggesting pulmonary hypertension. ?? * Angie Pina: PERFORM Event Display: History and Physical Hospital Authored Date: CORRECTION to HPI??: pt received tylenol 975 and asa 324 mg (not asa 975 mg) * Reji Her MD: PERFORM Event Display: History and Physical Hospital Authored Date: ?? Critical care attending: ?? Patient seen and examined multiple times during the day. I have reviewed the patient???s medical history,?? laboratory and imaging data. I have directed the care of?? the patient??care as documented in the AP's note with the following highlights and additions: ?? 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 I was called by the neurology team for consideration to ICU admission. While the hemorrhage is rather small the decision was to be given STAT K centra and Vit K, and was started on nicardipine gtt to keep SBP < 150 mmHg. ?? 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 Hypertension, uncontrolled with Hypertensive emergency Depression Warfarin induced coagulopathy , s/p reversal with vitamin K and KCentra CHF hyperlipidemia h/o pulmonary embolism on warfarin therapy type 2 DM ? - repeat CTH 6 hours - 9 PM - MRI brain with and without TAMAR - SBP <150, nicardipine prn?? - HOB >30 degrees - telemetry - hold antithrombotics - NPO until cleared - PM&R on hold currently ?? - continue escitalopram - continue topamax? after activation of [facility] to expedite transfer and treatment he will be admitted to Neuro ICU forfull anticoagulation reversal and for neuro-critical care monitoring with q1 hrs neuro-checks and VS - control SBP via nicardipine drip with goal < 150 mmHg strict ??? repeat head CT in 6 hrs to assess extension of bleed;? STAT CTH w/ any change in mental status -??repeat blood work - PT/ INR in 6 hrs??and in AM - vitamin K 10 mg iv stat given for longer term reversal of warfarin induced coagulopathy - obtain MRI brain with and without gadolinium??to evaluate for??possible stroke with hemorrhagic conversion vs. mass/ lesion hemorrhage - DVT prophylaxis: venodynes for now, hold SQH? continue home escitalopram and Topamax ?? - mother updated on current event, plan of care and prognosis ?? CODE STATUS: FULL CODE ?? Critical Care Time = 55??minutes ?? (This represents the total time I personally spent evaluating, managing and providing care exclusive of time spent for separately billable procedures.) * Fely Key DO: MODIFY, PERFORM, MODIFY Event Display: History and Physical Hospital Authored Date: Patient: ??AYDEN TAMAYO ? Age:??51 Years?Sex:??Male?:??1970?? Chief Complaint/Reason for Consultation Dizziness History of Present Illness This is a 51-year-old male with past medical history including hypertension,??chronic systolic heart failure,??history of pulmonary embolism on Coumadin, hyperlipidemia,??and history of embolic stroke, who currently presents to the hospital??from work after he??developed dizziness.?? 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 He thought his blood sugar might be low and drank??some orange juice with??slightimprovement of his symptoms, though not complete resolution.?? In the ED, the patient had lab work done that showed him to have high-sensitivity troponin 46, followed by 35.?? He was noted to have sup ratherapeutic INR 3.7.?? Cardiac ultrasound in the ED was unremarkable.?? The patient is admitted for further management.?? Of note, he did receive a liter of fluid in the ED.?? His lab work showed amildly elevated white count of 11.8 with a mild anemia and hemoglobin of 12.8.?? His BUN was 33 with a creatinine of 1.3, which appears to be around his baseline.?? BNP was elevated at 2426.?? Chest x- ray did not show any acute abnormality. Review of Systems A complete review of systems was obtained and noted to be negative except as stated above in the HPI. Objective ? Vital Signs?? Temperature: 97.8 DegF (08/16/22 20:13:00) Temperature Route: Oral (08/16/22 20:13:00) Pulse Rate: 59 bpm (08/17/22:28:00) Respiratory Rate: 16 br/min (08/17/22:28:00) Systolic Blood Pressure: 132 mm Hg (08/17/22:28:00) Diastolic Blood Pressure: 83 mm Hg (08/17/22:28:00) Blood pressure sites: Arm, right (08/17/22:28:00) Mean Arterial Pressure: 99 mm Hg (08/17/22:28:00) Pulse Pressure: 49 mm Hg (08/17/22:28:00) Oxygen Saturation: 95 % (08/17/22:28:00) Mode of Delivery (Oxygen): Room air (08/17/22 01:28:00) Early Warning Score: 4 (08/17/22 01:28:18) ? Physical Exam General: Alert, in no acute cardiopulmonary distress. Mental Status: Oriented to person, place and time. Normal affect. Head: Normocephalic. Eyes: Pupils are equal, round and reactive to light. Extraocular muscles intact. Ear, Nose and Throat: Oropharynx clear, mucous membranes moist. Ears and nose without masses, lesions or deformities. Trachea midline. Neck: Supple, Full range of motion. Respiratory: Clear to auscultation and percussion. No wheezing, rales or rhonchi. Cardiovascular: Heart sounds normal. Regular rate and rhythm, no murmurs, rubs or gallops. Gastrointestinal: Abdomen soft, non-tender, non-distended. Normal bowel sounds. No pulsatile mass. No hepatosplenomegaly. Neurologic: Cranial nerves II-XII grossly intact. No focal neurological deficits. Moves all extremities spontaneously. Sensation intact bilaterally. Skin: No rashes or lesions. No petechiae or purpura. No edema. Musculoskeletal: No cyanosis or clubbing. No gross deformities. Normal range of motion. Assessment/Plan This is a 51-year-old male with past medical history as noted above, who currently presents to the hospital??with complaint of dizziness. ?? Dizziness ??(R42) This patient will be admitted to an inpatient??he presents with??dizziness??uncertain etiology.?? He is a diabetic, but was??not significantly hypoglycemic on his presenting labs.?? He might have hadsome orthostasis contributing to the dizziness, especially given that he noted the onset of his symptoms??when he went from a seated to standing position.?? We will check orthostatic vitals on this patient.?? We will also monitor him on telemetry to see if he has any significant dysrhythmia that may have contributed to his dizziness.?? His cardiac enzymes were noted to be flat. ?? Chronic systolic heart failure. Hypertension This patient had a history of low EF in the past, though most recent ECHO from Apr 2022 shows LVEF of 50-55%.?? He had prior cardiac catheterization about 7 years ago that reportedly did not show anyobstructive coronary artery disease.?We will continue this patient on his carvedilol??and losartan.?? His BPs have been elevated, which may be contributing to his dizziness.?? Will continue his home medications and use hydralazine prn.?? If BPs remain elevated, will need to adjust antihypertensive regimen. ?? History??of pulmonary embolism. This patient is on Coumadin with??supratherapeutic INR. ??His goal INR is 2-3.?? We will??resume his Coumadin??once his INR decreases. ?? Depression. Continue patient on his duloxetine and escitalopram.?? He is also on topiramate??which will be continued. ?? CODE STATUS. ??Patient is a full code. ?? VTE prophylaxis. ??This patient is at high risk for DVT given his prior history of PE.?? He is on chronic anticoagulation which we will??maintain him on with a goal INR of 2-3. ?? Patient seen on August 16, 2022. Total time spent with patient and in coordination of care: including reviewing the chart/medical records, speaking with the patient, formulating and discussing the treatment plan, and documenting thefindings and encounter:?50 + min Histories Allergies Allergies ?(Active and Proposed Allergies Only) vancomycin? (Severity: Unknown severity, Onset: Unknown) ? Past Medical History/Problem List Active Problems??(5) COVID-19 Dizziness Obese class I Tubular adenoma of colon Urinary tract infection Hypertension Hyperlipidemia History of PE on Coumadin Diabetes mellitus type 2 Chronic systolic heart failure ? Past Surgical History Cholecystectomy: 02/14/14 ? Social History Patient lives alone. Alcohol Details:??Use: Current. ??Frequency: 1-2 times per month. ??Type: Beer. Substance Abuse Details:??Use: Never. Tobacco Details:??Use: Never (less than 100 in lifetime). Electronic Cigarette/Vaping Details:??Electronic Cigarette Use: Never. ?? Family Medical History Mother living at 68 with hypertension. ??Father at 64 with colon cancer. Medications Home Medications??(Confirmed with the patient) Atorvastatin (atorvastatin 40 mg oral tablet)?1?tab(s)?40?Milligram?By Mouth?Daily Carvedilol (carvedilol 6.25 mg oral tablet)?6.25?Milligram?1?tablet?By Mouth?2 times a day Duloxetine (duloxetine 20 mg oral enteric coated capsule)?1?capsule?20?Milligram?By Mouth?2 times a day Escitalopram (escitalopram 10 mg oral tablet)?2?tab(s)?20?Milligram?By Mouth?Daily Insulin Aspart (Insulin Aspart FlexPen 100 units/mL injectable solution)?INJECT MAX OF 14 UNITS SUBCUTANEOUSLY PER SLIDING SCALE THREE TIMES A DAY Insulin Glargine (Insulin Glargine Inj)?0.1?Milliliter?10?unit(s)?Subcutaneous Inject ion?Daily??in the morning Lorazepam (LORazepam 0.5 mg oral tablet)?1?tab(s)?0.5?Milligram?By Mouth?Daily atbedtime?as needed?as needed for anxiety?(filled 01/25/22 14 tabs still has some) Losartan (losartan 25 mg oral tablet)?50?Milligram?2?tablet?By Mouth?Daily Metformin (metFORMIN 1000 mg oral tablet)?1?tab(s)?1,000?Milligram?By Mouth?Dailybefore breakfast Multivitamin (Daily Vin oral tablet)?1?tab(s)?By Mouth?Daily Topiramate (topiramate 100 mg oral tablet)?1?tab(s)?100?Milligram?By Mouth?2 times a day Warfarin (warfarin 5 mg oral tablet)?See Instructions?Take 3 tablets 15 mg daily? Results Recent Labs BLOOD COUNT & DIFF WBC 11.8 k/mm3 (High)?? 08/16/2022 08:17 RBC 4.89 m/mm3 ()?? 08/16/2022 08:17 Hgb 12.8 Gm/dL (Low)?? 08/16/2022 08:17 Hct 39.6 % (Low)?? 08/16/2022 08:17 MCV 81.0 femtoliters ()?? 08/16/2022 08:17 MCH 26.2 pg (Low)?? 08/16/2022 08:17 MCHC 32.3 g/dL (Low)?? 08/16/2022 08:17 Platelet Count 284 k/mm3 ()?? 08/16/2022 08:17 RDW-SD 43.8 femtoliters ()?? 08/16/2022 08:17 MPV 11.8 femtoliters ()?? 08/16/2022 08:17 Nucleated RBC (Automated) 0.0 #/100 WBC'S ()?? 08/16/2022 08:17 Abs. NRBC 0.0 k/mm3 ()?? 08/16/2022 08:17 Abs. Neut 8.8 k/mm3 (High)?? 08/16/2022 08:17 Abs. Lymph 1.9 k/mm3 ()?? 08/16/2022 08:17 Abs. [place] 0.8 k/mm3 ()?? 08/16/2022 08:17 Abs. Eo 0.2 k/mm3 ()?? 08/16/2022 08:17 Abs. Baso 0.1 k/mm3 ()?? 08/16/2022 08:17 Neut % 74.3 % ()?? 08/16/2022 08:17 Lymph % 16.2 % ()?? 08/16/2022 08:17 [place] % 7.1 % ()?? 08/16/2022 08:17 Eos % 1.5 % ()?? 08/16/2022 08:17 Baso % 0.4 % ()?? 08/16/2022 08:17 Imm Gran 0.5 % ()?? 08/16/2022 08:17 Abs. Imm Gran 0.1 k/mm3 ()?? 08/16/2022 08:17 ?? CARDIAC Nt-Probnp 2426 pg/mL (High)?? 08/16/2022 08:18 High Sensitivity Troponin (HSTnT) 37 ng/L (High)?? 08/16/2022 13:09 ?? CHEM GENERAL Sodium 139 mmol/L ()?? 08/16/2022 08:18 Potassium 3.9 mmol/L ()?? 08/16/2022 08:18 Chloride 103 mmol/L ()?? 08/16/2022 08:18 Bicarbonate Level 22 mmol/L ()?? 08/16/2022 08:18 Anion Gap 14 ()?? 08/16/2022 08:18 Glucose Level 188 mg/dL (High)?? 08/16/2022 08:18 Glucose, POC 105 mg/dL (High)?? 08/16/2022 20:38 BUN 33 mg/dL (High)?? 08/16/2022 08:18 Creatinine-Blood 1.3 mg/dL (High)?? 08/16/2022 08:18 Estimated GFR Creatinine 66 ML/MIN/1.73 M2 ()?? 08/16/2022 08:18 Calcium 9.9 mg/dL ()?? 08/16/2022 08:18 Protein, Total 6.9 Gm/dL ()?? 08/16/2022 08:18 Albumin 4.1 Gm/dL ()?? 08/16/2022 08:18 AG Ratio 1.5 ()?? 08/16/2022 08:18 Alkaline Phosphatase 87 units/L ()?? 08/16/2022 08:18 AST (SGOT) 20 units/L ()?? 08/16/2022 08:18 ALT (SGPT) 35 units/L ()?? 08/16/2022 08:18 Bilirubin, Total 0.5 mg/dL ()?? 08/16/2022 08:18 ?? COAG INR 3.7 (High)?? 08/16/2022 08:17 Protime (PT) 35.6 seconds (High)?? 08/16/2022 08:17 ?? ENDOCRINE/TUMOR MARKER TSH 2.14 uIU/mL ()?? 08/16/2022 08:18 ?? VIROLOGY COVID-19 by RT-PCR NEGATIVE ()?? 08/16/2022 12:10 ? Imaging(s) ?Other Image ?EKG showing normal sinus rhythm with a heart rate of 62. This was subtle less than 1 mmST depression in V5 to V6, but this was noted on prior EKG from May 2022 as well. ?(08/16/2022 09:45 EDT Chest 2 Views Frontal and Lat) IMPRESSION: ?? No acute abnormality. Normal exam [1] [1]??Chest 2 Views Frontal and Lat; Juancarlos Mota MD 08/16/2022 09:45 EDT EKG study * Event Display: EKG Authored Date: * Event Display: ECG 12-Lead Authored Date: Please click on pdf link to open report * Event Display: ECG 12-Lead Authored Date: Ventricular Rate: 64 BPM Atrial Rate: 64 BPM P-R Interval: 118 ms QRS Duration: 130 ms Q-T Interval: 440 ms QTC Calculation(Bazett): 453 ms P Usk: -19 degrees R Usk: -54 degrees T Usk: 96 degrees Poor data quality, interpretation may be adversely affected Normal sinus rhythm Left bundle branch block Abnormal ECG When compared with ECG of 01-JUL-2022 09:02, No significant change was found Confirmed by VIRI WILKS DO ([id number]) on 08/24/2022 1:45:18 PM [place]: VIRI WILKS DO Heart * Event Display: Echocardiogram - Complete Authored Date: Transthoracic Echocardiography Report (TTE) Patient Demographics Patient Name AYDEN TAMAYO Date of Study 08/22/2022 Corporate Gender Male Facility Race Ethnicity Date of 1970 Height: 66.93 inches Age 51 year(s) Weight: 209.46 pounds Accession Number [id number] BSA: 2.06 m2 Room Number [id number] BMI: 32.88 kg/m2 Referring Physician Arthur Lucia MD Physician Sample Tester Grinder Clara HAINES. Clinical History Obesity. Study Data Type of Study TTE procedure:Echo Complete-(Doppler, Colorflow) with Contrast. Procedure Information:Saline (bubble study) was administered by RN . Study Date08/22/2022 Start Time: 12:18 PM Study Location: [facility] Adult Echo Study Status: Echo lab Patient Status: Routine Technical Quality: Adequate Blood Pressure:150/88 mmHg EKG: Normal sinus rhythm HR: 61 bpm 2D Measurements LV Diastolic Dimension: 5 cm LV Systolic Dimension: 4.3 cm LV Septum Diastolic: 1.78 cm LV PW Diastolic: 1.92 cm AO Root Dimension: 3.3 cm LA ESV (BP):100.91 ml LVOT Stroke Volume: 68.67 ml LA ESV Index: 49 ml/m2 Stroke Volume Index33.33 ml/m2 LVOT: 2.7 cm Cardiac Index:2.03 l/min/m2 Ascending Aorta:3.7 cm Doppler Measurements AV Peak Velocity: 106 cm/s MV Peak E-Wave: 47.6 cm/s AV Peak Gradient: 4.49 mmHg MV Peak A-Wave: 63.4 cm/s MV E/A Ratio: 0.75 LVOT Peak Velocity: 71.9 cm/s LVOT VTI12 cm MV Deceleration Time: 261 msec AV P1/2t: 413 msec PV Peak Velocity: 89.6 cm/s E' Septal Velocity: 3.15 cm/s PV Peak Gradient: 3.21 mmHg E' Lateral Velocity: 3.24 cm/s E/Med E':15.90923 E/Lat E':14.40355 Cardiac Anatomy Left Ventricle/Interventricular Septum The left ventricular size is normal. There is moderate to severe concentric left ventricular hypertrophy. The left ventricular ejection fraction is 35-45%. There is mild to moderate global hypokinesis with regional variation. Consider infiltrative process. Grade I, mild diastolic dysfunction with impaired LV relaxation. Left Atrium/Interatrial Septum The left atrium is moderately dilated. An agitated saline study (bubble study) was performed and was normal at rest There is no evidence of right to left shunting. On valsalva images there is movement in image which limits assessment of shunt - bubbles are noted in LV however timing cannot be adequately assessed. There is late appearance of saline contrast in the left heart possibly indicative of transpulmonary path. Aortic Valve The aortic valve is poorly visualized. There is no aortic stenosis. There is trace aortic regurgitation. Mitral Valve The mitral valve appears grossly normal. There is trace mitral regurgitation. Aorta The ascending aorta and aortic root are top normal in size. Right Ventricle The right ventricular size and function appears grossly normal. Right Atrium The right atrium is normal in size. Pulmonic Valve The pulmonic valve is functionally normal. Tricuspid Valve The tricuspid valve is grossly normal. There is trace tricuspid valve regurgitation. Pumonary Artery An accurate pulmonary artery pressure could not be obtained. Venous Structures The inferior vena cava appears grossly normal. Inspiratory collapse is not adequately assessed. Pericardium/Extracardiac There is no significant pericardial effusion. Summary The left ventricular size is normal. There is moderate to severe concentric left ventricular hypertrophy. The left ventricular ejection fraction is 35-45%. There is mild to moderate global hypokinesis with regional variation. Consider infiltrative process. Grade I, mild diastolic dysfunction with impaired LV relaxation. The left atrium is moderately dilated. An agitated saline study (bubble study) was performed and was normal at rest There is no evidence of right to left shunting. On valsalva images there is movement in image which limits assessment of shunt - bubbles are noted in LV however timing cannot be adequately assessed. There is late appearance of saline contrast in the left heart possibly indicative of transpulmonary path. The aortic valve is poorly visualized. There is no aortic stenosis. There is trace aortic regurgitation. The right ventricular size and function appears grossly normal. There is no significant pericardial effusion. Comparison Comparison is made to the study of April 20, 2022. Technical differences limit comparison. Signature * Event Display: Echocardiogram - Complete Authored Date: Cardiology * Event Display: Cardiac Rhythm Strips Authored Date: * Event Display: Cardiac Rhythm Strips Authored Date: Hospital Progress note * Jacquie Borges: PERFORM, SIGN, VERIFY Event Display: Progress Note Hospital Authored Date: Patient: AYDEN TAMAYO Age: 51 years Sex: Male : 1970 Associated Diagnoses: None Author: Jacquie Borges [facility] Progress Note Interval History No acute events Patient is apprehensive about returning home. Was able to ambulate yesterday and had a little bit of dizziness but was improved compared to prior. Last orthostatic BP readings on 09/22 which showed standing BP > 100. Hope for d/c home today. Review of Systems Review of Systems Constitutional: no complaints. Respiratory: no shortness of breath. Cardiovascular: peripheral edema. Gastrointestinal: no nausea, no vomiting. Physical Examination Vital Signs Vitals : VITALS 09/24/2022 11:00 EDT Temperature 97.5 DegF Temperature Route Temporal Pulse Rate 63 bpm Respiratory Rate 18 br/min Systolic Blood Pressure 157 mm Hg H Diastolic Blood Pressure 91 mm Hg H Blood pressure sites Arm, left Pulse Pressure 66 mm Hg Oxygen Saturation 100 % Mode of Delivery (Oxygen) Room air . General Appearance Anxious. Respiratory Lungs: CTA. Cardiac Cardiac: no M/G/R. Rhythms: RRR. Abdomen/GI Abdomen: soft, non-tender. Extremities Extremities: venous stasis changes. Edema: grade trace . Neurologic Alert & oriented x 3 . Results Review 7 Day Results Results Laboratory : LABORATORY 09/24/2022 0:53 EDT Sodium 143 mmol/L Potassium 4.1 mmol/L Chloride 110 mmol/L H Bicarbonate Level 24 mmol/L Anion Gap 9 Glucose Level 160 mg/dL H BUN 29 mg/dL H Creatinine-Blood 1.1 mg/dL Estimated GFR Creatinine 80 ML/MIN/1.73 M2 Calcium 9.5 mg/dL Magnesium 1.7 mg/dL 09/24/2022 0:50 EDT WBC 11.1 k/mm3 H RBC 4.63 m/mm3 L Hgb 12.4 Gm/dL L Hct 38.8 % L MCV 83.8 femtoliters MCH 26.8 pg L MCHC 32.0 g/dL L Platelet Count 206 k/mm3 RDW-SD 45.3 femtoliters MPV 11.6 femtoliters Nucleated RBC (Automated) 0.0 #/100 WBC'S Abs. NRBC 0.0 k/mm3 Impression and Plan Ayden Tamayo is a 51-year-old male with medical history significant for PE (on Coumadin, after failing apixaban), HTN, HLD, DM with neuropathy, HFrEF (35- 40%), with hx stroke (suspected coagulopathy with venous and arterial thrombosis on Coumadin) who was admitted to [facility] on 08/16 with dizziness with CTH/A which revealed L thalamic IPH, given warfarin reversal, started on nicardipine gtt and admitted to N[facility]U with follow up imaging stable and stable exam. MRI Brain with L thalamic IPH and extensive microhemorrhages. Seen by ophthalmology for vision complaints and found to have Right HERNANDEZ. His repeat echo shows ejection fraction reduced to 35 to 45% (was 50 to 55% in 05/07) with grade 1 mild diastolic dysfunction and ?transpulmonary shunt. His hospital course has been complicated by orthostatic hypotension which has now been optimized as much as possible. Cardio following and did Cardiac MRIwith concern for HCM, to have remainder of workup outpatient. AC to resume 1 month after IPH on 09/27. Medically cleared for discharged and awaiting disposition. 1. Orthostatic hypotension C/b supine hypertension, obviously would like to control as much as possible given his cardiomyopathy Plan: - Continue midodrine 5 mg TID - Continue Entresto 24- and carvedilol 3.125 mg BID - Evaluation for droxidopa outpatient - Continue with compression stockings while ambulating and HOB elevation - I have contacted our office regarding setting up ambulatory BP readings and follow up on Saturday Thank you for the courtesy of this consult, RTANE will continue monitoring the patient along with you please do not hesitate to call us with any further questions Jacquiejaun Lockhart PA-C [facility] [address] , [address] Available by [employer] * Garcia Duckworth: PERFORM, SIGN, VERIFY Event Display: Progress Note Hospital Authored Date: Patient: AYDEN TAMAYO Age: 51 years Sex: Male : 1970 Associated Diagnoses: None Author: Garcia Duckworth Findings Problem Related to Alteration in Neurological : Alteration in Neurological Function/new 09/23/2022 19:23 EDT Alteration in Neuro status Related to Acute Stroke (CVA), Other: IPH, 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, slightly dysconjugate gaze Goals & Outcomes, Neurological Lab studies/diagnostic tests within pt specific limits, Pt is safe with transfers & activities, Pt will be discharged without infection, Pt will be hemodynamically stable, Pt will be Neurologically stable, Pt will become pain free with appropriate intervention, Pt will maintain intact skin integrity, Pt will remain free from injury, Pt will resume/maintain ad equate cardiac output, Pt will state importance of adhering to medication regime, Pt/caregiver willreceive psychosocial support as needed, Pt/caregiver will state understanding of rehab plan Interventions, Neurological Assess/monitor for abnormal posturing, Assess/monitor for gaze pattern/extraocular movements, Assess/monitor for increased Intracranial Pressure, Assess/monitor neurologicstatus, Collaborate with provider re: medication regime, Emergency airway equipment at bedside, If n o bowel movement in 3 days activate bowel regime, [place] alternate means of communication, Maintain HOB at least 30 deg, Maintain patient safety if unsteady gait, Maintain strict intake & output, Monitor for headaches, nausea, vomiting, Monitor speech fluency, aphasia, word finding difficulty, Physical assessment per unit standards, Provide emotional support to Pt/caregiver, Teach & encourage deep breath & cough exercises, Teach and encourage use of Incentive spirometer, Teach pt/caregiver discharge plan & follow up care, Teach pt/caregiver on plan of care, treatment, s/s & meds, Teach pt/caregiver on use of pain scale Goals/Interventions, Neurological Yes Neurological, Problem Start 08/18/2022 2:16 Reviewed plan with, Neurological Patient, Family/caregiver not available Patient Progression, Neurological Pt progressing according to plan . Nursing Data Cardiac Data. 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 Gastrointestinal Data. : Gastrointestinal Data. 09/23/2022 21:00 EDT GI WNL Normal Bowel Pattern Daily . Genitourinary Data. : Genitourinary Data. 09/23/2022 21:00 EDT WNL . HEENT Data. : HEENT Assessment 09/23/2022 21:00 EDT HEENT, Adult WNL . Integumentary Data. : Integumentary Data. 09/23/2022 21:00 EDT Sensory Perception No impairment Integumentary WNL . Musculoskeletal Data. : Musculoskeletal Data. 09/23/2022 21:00 EDT Musculoskeletal WNL . Neurological Data. : Neurological Data. 09/23/2022 21:00 EDT Level of Consciousness Full Consciousness Orientated to person, place, time Person, Place, Time, Event Facial Symmetry Intact Characteristics of Speech Clear and normal Pupil description, left Regular Pupil description, right Regular Pupil reaction, left Brisk Pupil reaction, right Brisk Strength LUE 5-Active movement against gravity & full resistance Strength RUE 5-Active movement against gravity & full resistance Strength LLE 5-Active movement against gravity & full resistance Strength RLE 5-Active movement against gravity & full resistance Tone LUE Normal Tone RUE Normal Tone LLE Normal Tone RLE Normal Sensation LUE Intact Sensation RUE Intact Sensation LLE Intact Sensation RLE Intact Movement LUE Spontaneous Movement RUE Spontaneous Movement LLE Spontaneous Movement RLE Spontaneous Gait Steady Response Eye Opening Spontaneously Motor Response-Adult Obeys commands Verbal Response-Adult Oriented and converses Hollister Coma Score 15 Neuro WNL except Eyes and Movements Conjugate gaze: Move in same direction at same speed Memory Intact Swallow - Neuro Normal . Evaluation Patient AOx4, independently moves from bed to recliner, walks on his own with normal gait. He denied headche, dizziness, blurry or double vision. Breathing normal with no respiratory distress, no n/v, stay in his recliner for most of the day. Pt BP 181/93, notified. Schedule meds administer, he refused his heparin, stated he's ambulatory and doesn't need it. Teaching was done on the importanceof this medication to help prevent futrue bloodclot but the patient refused the med. Bed and recliner locked in lowest position with both bed recliner alarm on and call gauthier within reach. patients safety maintained. No neuro change throughout the shift. See CIS for assessment . * Stevan GONZALEZ, Vitaly Fournier: PERFORM Event Display: Progress Note Hospital Authored Date: [id number] This note will serve as an addendum to the progress note to follow from today by . He is doing great today. He is doing again still great and always has no new complaints or concerns. He is tolerating everything well now. Appetite is great. Really sick of being here in the hospital. Thankfully his family have been able to arrange for him to return home tomorrow. The movers of brought things and are going to be doing so. This is a 38 in the hospital he is really had it. Patient appeared well no apparent distress sitting up in the chair great spirits no distress. Vital signs today show a temperature 97.6 heart rate 64 respiratory rate 18 blood pressure 145/89 O2 sat 100% on room air Unchanged clinically. Laboratory studies showed blood sugars in the 100 Assessment plan--stable at current time. Medically, he is ready for discharge. The social issues are now major barrier. See other notes for details. It sounds like things have been making progress. He is a candidate for outpatient physical therapy. Midodrine 5 mg 3 times daily has been been marginally helpful. Continue same. Continue current management plan for the moment. Continue to follow-up with cardiology, renal, PMNR. Nuclear medicine tumor SPECT study results are back. Dr. BIRD has discussed this with Dr. Blas cardiology and she will take care of discussing the impact of these findings with the patient when she sees him in the outpatient clinic. Probable discharge home tomorrow. Please see Dr. Bird's note to follow from today for the rest of the details of our assessments and plans. Note * Skyler GUTIÉRREZ, Lauryn: PERFORM Event Display: Discharge/Transfer Note Hospital Authored Date: [id number] Nursing Discharge Note Entered On: 09/24/2022 16:45 EDT Performed On: 09/24/2022 16:45 EDT by Lauryn Holland RN Nursing Discharge Note 2 Discharge Time : 09/24/2022 16:45 EDT Discharge Level of Care at Discharge : Homehealth/VNA Discharge VNA/Hospice/Home Care(v001) : [facility] [phone] Patient Left Unit Via : Wheelchair Patient Accompanied Off Unit with : Other: Transported to D/C lounge with features editor, waiting for Uber DC Instructions Provided & Signed by Pt : Yes Patient Understands D/C Instructions : Yes Patient Instructions Discharge Signed : Yes Did Pt have Specialty Bed or Wound Vac : No Lauryn Holland RN - 09/24/2022 16:45 EDT * Kosta Patel MD: PERFORM Event Display: Discharge/Transfer Note Hospital Authored Date: [id number] Patient: ??AYDEN TAMAYO ? Age:??51 Years?Sex:??Male?:??1970?? Patient Information Discharge Location: On License Of [facility] Primary Care Physician: Brandin Valdez MD Admit Date/Time: 08/16/22 12:58 Discharge Disposition Discharge Disposition: Home with Home Health Discharge Diagnosis Dizziness (R42) Orthostatic hypotension (I95.1) Stroke (I63.9) ?? _ Discharge Medications Aspirin (aspirin 81 mg oral delayed release tablet)?81?Milligram?1?tablet?By Mouth?Daily Atorvastatin (atorvastatin 10 mg oral tablet)?1?tab(s)?10?Milligram?By Mouth?Daily Brimonidine Ophthalmic (brimonidine 0.2% ophthalmic solution)?See Instructions?1 drops Every 8 hours to right eye Carvedilol (carvedilol 3.125 mg oral tablet)?3.125?Milligram?1?tablet?By Mouth?2 times a day Duloxetine (duloxetine 20 mg oral enteric coated capsule)?1?capsule?20?Milligram?By Mouth?2 times a day Durable Medical Equipment (Walker)?See Instructions?One Enoxaparin (Lovenox 100 mg/mL injectable solution)?100?Milligram?Subcutaneous Injection?Daily?*Note: Treatment = 1.5mg/kg/day, renal dosing = 1mg/kg/day* Escitalopram (escitalopram 10 mg oral tablet)?2?tab(s)?20?Milligram?By Mouth?Daily Lorazepam (LORazepam 0.5 mg oral tablet)?1?tab(s)?0.5?Milligram?By Mouth?Daily atbedtime?as needed?as needed for anxiety?(filled 01/25/22 14 tabs still has some) Metformin (metFORMIN 1000 mg oral tablet)?1?tab(s)?1,000?Milligram?By Mouth?Dailybefore breakfast Midodrine (midodrine 5 mg oral tablet)?5?Milligram?1?tablet?By Mouth?3 times a day sacubitril-valsartan (Entresto 24 mg-26 mg oral tablet)?1?tab(s)?By Mouth?2 times a day Topiramate (topiramate 100 mg oral tablet)?1?tab(s)?100?Milligram?By Mouth?2 times a day Warfarin (warfarin 5 mg oral tablet)?See Instructions?Take 1 to 2 and 1/2 tablets by mouth daily as directed by the [facility]madin Clinic Warfarin (warfarin 5 mg oral tablet)?See Instructions?Take 2 to 3 tablets by mouth daily as directed by the Coumadin Clinic ? Quality Measures Stroke Quality Measures:?Discharged on Antithrombotic Therapy:??Antithrombotic prescription ?Statin Prescribed at Discharge:??Statin Prescribed ? Medications Started Briminidine Aspirin Midodrine 5mg TID Entresto Medications Discontinued Insulin Glargine Insulin Aspart Hydralazine Doses Changed Coreg decreased to 3.125 BID Atorvastatin decreased to 10mg daily PCP Follow-Up/Heads-Up Patient was admitted Future Appointments Saturday 10:30 AM EDT ?? With: Hemal Gonzales MD Where: [facility] Neurology [facility] 3rd Floor, [address] [place] [address]- Status: Pending Hospital Course Ayden is a 51-year-old male with medical history significant for PE (on coumadin, after failing apixaban), htn, hld, dm, neuropathy, CHF, with hx stroke (suspected coagulopathy with venous and arterial thrombosis on coumadin) who was admitted to [facility] on 08/16 with dizziness with CTH/A which revealedL thalamic IPH, given warfarin reversal, started on nicardipine gtt and admitted to NCCU with follow up imaging stable and stable exam. MRI Brain with L thalamic IPH and extensive microhemorrhages. Seen by ophthalmology for vision complaints and found to have Right HERNANDEZ. His repeat echo shows ejection fraction reduced to 35 to 45% (was 50 to 55% in 05/07) with grade 1 mild diastolic dysfunction and ?transpulmonary shunt. His hospital course has been complicated by orthostatic hypotension. Much improved with discontinuation of amlodipine and initiation of midodrine however still persistent. Cardio following and did Cardiac MRI with concern for HCM. Getting further work up per cardio recs including PYP scan and amyloidosis work up. Medication changes made for GDMT and to also improve orthostasis. AC to resume 1 month after IPH on 09/27. Patient's family has moved all of his belongings to a first floor apartment and he is now stable for discharge home. ?? Objective Assessment and Plan Ayden is a 51-year-old male with??medical history significant for??PE (on coumadin, after failingapixaban), htn, hld, dm, neuropathy, CHF, with hx stroke (suspected coagulopathy with venous and arterial thrombosis on coumadin) who was admitted to [facility] on 08/16 with dizziness with CTH/A which revealed L thalamic IPH, given warfarin reversal,??started on nicardipine gtt and admitted to NCCU with follow up imaging stable and stable exam. MRI Brain with L thalamic IPH and extensive microhemorrhages. Seen by ophthalmology for vision complaints and found to have Right HERNANDEZ. His repeat echo shows ejection fraction reduced to 35 to 45% (was 50 to 55% in 05/07) with grade 1 mild diastolic dysfunction and ?transpulmonary shunt.??His hospital course has been complicated by orthostatic hypotension. Much improved with discontinuation of amlodipine and initiation of midodrine however still persistent. Cardio following and did Cardiac MRI with concern for??HCM. Getting further work up per cardio recs including PYP scan and amyloidosis work up.??Medication changes made??for??GDMT and to also improve o rthostasis. AC to resume 1 month after IPH on 09/27.??Patient now stable for discharge home. ?? 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 Ophthalmology evaluated for R HERNANDEZ. Recommendations: -??Start Brominidine 0.15% 1 drop TID - ophthalmology follow-up outpatient ([phone] for appt) - asa 81 mg qd + atorvastatin 10 mg qd - hold AC for 1 month. Can resume on 09/27 with Lovenox bridgge - continue Topamax 100 mg bid - will need outpatient ILR - cardiology to arrange.? Heart failure with recovered ejection fraction due to a nonischemic cardiomyopathy (LVEF 35 to 45%) Orthostatic hypotension Supine Hypertension HLD Concern for HCM Difficulty managing due to severe orthostatic hypotension and supine hypertension Would like to reduce supine HTN as much as possible given underlying cardiac disease while also trying to avoid hypotension Amlodipine discontinued and midodrine started per renal and cardiology recommendations; appears to be improving so far Cardio following. cMRI done,??Suspect HCM, but awaiting full review of MRI.?? Recommendations: - Continue atorvastatin 10mg daily - Decreased Coreg to??3.125mg BID -??Continue Entresto 24-26 - midodrine 5mg TID; continue compression stocking - Amlodipine discontinue - renal to organize ambulatory BP monitoring - cardio will consider outpatient??ROCT for arrhythmias related to his cardiomyopathy. ?? Supratherapeutic INR, resolved Hx of Unprovoked recurrent PE??Patient established with Dr. Ng for hematology History of unprovoked recurrent PE. ??First episode in 2013 and was on apixaban until December 2018. ??In 2018 was found to have submassive PE and was switched to Lovenox followed by warfarin. ??Unclear whether this was failure of Eliquis versus absorption issues with ongoing IBS at that time. ??Patient then had a TIA with limited hypercoagulable work-up being negative at the time. Last seen in clinic in March 2022 and was asked to continue lifelong anticoagulation with warfarin Hematology was consulted and on 09/11 discussed with hematology fellow ??Clint who stated that further remaining coagulation work-up will be done outpatient including protein C, S and Antithrombin -they will arrange follow-up. ??Discussed apixaban, dabigatran and Pradaxa and given that he did not technically failed Coumadin we will continue with Coumadin after 4 weeks of past. Recommendations: -Outpatient follow-up with media analyst -Resume anticoagulation with warfarin in 4 weeks i.e. start warfarin on 09/27 with Lovenox bridge -Further coagulation work-up to be completed at hematology office ?? Prediabetes: Discontinue Lantus and insulin aspart, resume home metformin Depression/anxiety: continue Lexapro and duloxetine ?? Vital Signs?? Temperature: 97.5 DegF (09/24/22 11:00:00) Temperature Route: Temporal (09/24/22 11:00:00) Pulse Rate: 63 bpm (09/24/22 11:00:00) Respiratory Rate: 18 br/min (09/24/22 11:00:00) Systolic Blood Pressure:??157 mm Hg??High (09/24/22 11:00:00) Diastolic Blood Pressure:??91 mm Hg??High (09/24/22 11:00:00) Blood pressure sites: Arm, left (09/24/22 11:00:00) Mean Arterial Pressure: 122 mm Hg (09/23/22 22:36:00) Mean Arterial Pressure: 121 mm Hg (09/23/22 22:36:00) Pulse Pressure: 66 mm Hg (09/24/22 11:00:00) Oxygen Saturation: 100 % (09/24/22 11:00:00) Mode of Delivery (Oxygen): Room air (09/24/22 11:00:00) Early Warning Score: 2 (09/24/22 11:38:08) ? . Physical Exam General Appearance: The patient is in NAD. Cardiovascular: RRR S1 and S2 heard with no M/R/G. No JVD. Respiratory: ??Breath sounds clear to auscultation bilaterally. No wheezing. Good air movement throughout both lungs. GI: Soft. Nontender and nondistended. Normal bowel sounds present throughout abdomen.?? MS: ??No edema or erythema in the lower extremities. No wounds seen on the feet. Peripheral sensation intact.?? Neuro: ??No slurred speech. ??Patient seen moving their upper and lower extremities independently. Psych: Alert and oriented x3. Appropriate and pleasant. [facility] Neurology Cardiology Patient Education Titles Risk Factors for Stroke?? Discharge Instructions for Stroke?? Follow-Up Appointments Added Follow Up ?Time Frame ?Comments Hemal Gonzales?10/29/2022 10:30?THIS IS A PHONE FOLLOW UP-MD WILL CALL YOU-PLEASE DO NOT COME TO THE OFFICE Brandin Valdez Patient Instructions You are to start taking Lovenox 100mg injections on 09/27 for 5 days. At this time on 09/27 you arealso to restart your warfarin. You will have home health to draw your blood levels. Please call andschedule a follow up with your primary care physician as well as mention that you are restarting Coumadin. Post Discharge Care Activity: OOB as Angela ??With Assistance ??HOB 30 Degrees ??up in recliner chair 1-2 hours, 3 times aday as tolerated Code Status: ?? Full Resuscitation Home Health Face to Face *Denotes mandatory evans ?? *I certify that this patient is under my care and that I or an allowed non- physician working with me had a face to face encounter with the patient on this date:??09/24/2022 14:38 ?? *The encounter with the patient was in whole, or in part, for the following medical condition, which is the primary diagnosis(es) for home health care:??Dizziness (R42) Orthostatic hypotension (I95.1) Stroke (I63.9) ? *Select the indications for the discipline/s that are being arranged for this patient. Nursing (select all that apply): [_] None [_x] Medication management (reconciliation, teaching)?? [_x] Chronic disease management?? [_] Wound care and treatment?? [_] Home safety evaluation [x_] Administer SQ/IM/IV medications?? [_] Cath care?? [_] Drain care?? [_] Trach or GT care?? Other _ Occupation Therapy (select all that apply): [_] None [x_] ADL Management [x_] Fall prevention training [_] Energy conservation [_] Cognitive training Other _ Physical Therapy (select all that apply): [_] None [x_] Functional mobility training [_] Home exercise program to strengthen [x_] Increase ROM?? [_x] Falls prevention training [_x] Home maintenance program for chronic disease Other _ Speech Therapy (select all that apply): [_] None [_] Swallow evaluation and training [_] Speech and language training [_] Cognitive training to process, organize, and/or recall information Other _ ? *Homebound due to (select all that apply): [x_] Inability to leave home without assistance/supervision [_] Inability to ambulate without assistance [_] Pain [_] Decreased strength and endurance [_] Unsteady gait [_] Severe SOB and fatigue [_] Impaired transfers [_] Inability to negotiate stairs [_] Limited weight bearing [_] Mental status change? *Physician Signature:??Kosta Patel MD ?? *By signing this, I certify that I have personally evaluated the patient and agree with the findings and recommendations as documented above. ? Results Discharge Labs BLOOD COUNT & DIFF WBC 11.1 k/mm3 (High)?? 09/24/2022 00:50 RBC 4.63 m/mm3 (Low)?? 09/24/2022 00:50 Hgb 12.4 Gm/dL (Low)?? 09/24/2022 00:50 Hct 38.8 % (Low)?? 09/24/2022 00:50 MCV 83.8 femtoliters ()?? 09/24/2022 00:50 MCH 26.8 pg (Low)?? 09/24/2022 00:50 MCHC 32.0 g/dL (Low)?? 09/24/2022 00:50 Platelet Count 206 k/mm3 ()?? 09/24/2022 00:50 RDW-SD 45.3 femtoliters ()?? 09/24/2022 00:50 MPV 11.6 femtoliters ()?? 09/24/2022 00:50 Nucleated RBC (Automated) 0.0 #/100 WBC'S ()?? 09/24/2022 00:50 Abs. NRBC 0.0 k/mm3 ()?? 09/24/2022 00:50 Abs. Neut 5.5 k/mm3 ()?? 08/27/2022 02:47 Abs. Lymph 3.2 k/mm3 (High)?? 08/27/2022 02:47 Abs. [place]raz[place] 1.0 k/mm3 ()?? 08/27/2022 02:47 Abs. Eo 0.4 k/mm3 ()?? 08/27/2022 02:47 Abs. Baso 0.1 k/mm3 ()?? 08/27/2022 02:47 Neut % 53.5 % ()?? 08/27/2022 02:47 Lymph % 31.5 % ()?? 08/27/2022 02:47 [place]razos % 10.1 % ()?? 08/27/2022 02:47 Eos % 3.7 % ()?? 08/27/2022 02:47 Baso % 0.7 % ()?? 08/27/2022 02:47 Imm Gran 0.5 % ()?? 08/27/2022 02:47 Abs. Imm Gran 0.1 k/mm3 ()?? 08/27/2022 02:47 ?? CARDIAC Nt-Probnp 2426 pg/mL (High)?? 08/16/2022 08:18 High Sensitivity Troponin (HSTnT) 37 ng/L (High)?? 08/16/2022 13:09 ?? CHEM GENERAL Sodium 143 mmol/L ()?? 09/24/2022 00:53 Potassium 4.1 mmol/L ()?? 09/24/2022 00:53 Chloride 110 mmol/L (High)?? 09/24/2022 00:53 Bicarbonate Level 24 mmol/L ()?? 09/24/2022 00:53 Anion Gap 9 ()?? 09/24/2022 00:53 Glucose Level 160 mg/dL (High)?? 09/24/2022 00:53 Glucose, POC 141 mg/dL (High)?? 09/24/2022 10:53 Hemoglobin A1C (Monitoring) 5.6 % ()?? 09/13/2022 09:48 BUN 29 mg/dL (High)?? 09/24/2022 00:53 Creatinine-Blood 1.1 mg/dL ()?? 09/24/2022 00:53 Estimated GFR Creatinine 80 ML/MIN/1.73 M2 ()?? 09/24/2022 00:53 Calcium 9.5 mg/dL ()?? 09/24/2022 00:53 Calcium, Ionized pH Corrected 1.30 mmol/L ()?? 09/17/2022 00:44 Phosphorus 3.8 mg/dL ()?? 09/17/2022 00:44 Magnesium 1.7 mg/dL ()?? 09/24/2022 00:53 Protein, Total 6.4 Gm/dL ()?? 09/17/2022 00:44 Albumin 3.8 Gm/dL ()?? 09/17/2022 00:44 AG Ratio 1.5 ()?? 09/17/2022 00:44 Alkaline Phosphatase 77 units/L ()?? 09/17/2022 00:44 AST (SGOT) 20 units/L ()?? 09/17/2022 00:44 ALT (SGPT) 40 units/L ()?? 09/17/2022 00:44 Bilirubin, Total 0.2 mg/dL ()?? 09/17/2022 00:44 Bilirubin, Direct <0.2 mg/dL ()?? 08/17/2022 15:39 Bilirubin, Indirect Direct bilirubin is less than the measureable limit. Therefore, indirect mg/dL ()?? 08/17/2022 15:39 C-Reactive Protein 0.4 mg/dL ()?? 08/21/2022 09:12 ? COAG INR 1.1 ()?? 09/06/2022 01:38 Protime (PT) 11.6 seconds (High)?? 09/06/2022 01:38 APTT 25.9 seconds ()?? 08/20/2022 03:18 Dilute Daryn's Viper Venom Test 41.9 seconds ()?? 08/22/2022 07:12 PTT-LA (Lupus-Sensitive) 32.8 seconds ()?? 08/22/2022 07:12 Lupus Anticoagulant Interpretation Comment: ()?? 08/22/2022 07:12 ?? ENDOCRINE/TUMOR MARKER TSH 0.89 uIU/mL ()?? 08/17/2022 15:39 ? HEME OTHER Sed Rate 25 mm/hr (High)?? 08/21/2022 09:12 Hold Lavender Top SPECIMEN DISCARDED AFTER 24 HOURS. ()?? 09/13/2022 09:48 Hold Blue Top SPECIMEN DISCARDED AFTER 4 HOURS. ()?? 08/17/2022 09:45 ? IMMUNOLOGY GENERAL IgG 1083 mg/dL ()?? 09/17/2022 00:44 IgA 390 mg/dL ()?? 09/17/2022 00:44 IgM 29 mg/dL (Low)?? 09/17/2022 00:44 Immunofixation-Serum Normal immunofixation pattern (No monoclonal protein detected) ()?? 09/17/2022 00:44 Free [place] Light Chains 32.55 mg/L (High)?? 09/17/2022 00:44 Free Lambda Light Chains 16.22 mg/L ()?? 09/17/2022 00:44 Free KappaRatio 2.01 (High)?? 09/17/2022 00:44 B2GP1, IgG <9 ()?? 08/22/2022 07:12 B2GP1, IgM <9 ()?? 08/22/2022 07:12 Cardiolipin Ab IgM <9 ()?? 08/22/2022 07:12 Cardiolipin Ab IgG <9 ()?? 08/22/2022 07:12 [place] Total Light Chain, Urine 26.93 ()?? 09/15/2022 12:44 Lambda Total Light Chain, Urine 3.09 ()?? 09/15/2022 12:44 [place]/Lambda Total Light Chain Ratio 8.72 ()?? 09/15/2022 12:44 ?? LIPID STUDIES Cholesterol 100 mg/dL ()?? 08/26/2022 02:36 Triglycerides 140 mg/dL ()?? 08/26/2022 02:36 HDL Cholesterol 28 mg/dL (Low)?? 08/26/2022 02:36 LDL Cholesterol 44 mg/dL ()?? 08/26/2022 02:36 Non HDL Cholesterol 72 mg/dL ()?? 08/26/2022 02:36 ? MISC. CHEMISTRY Hold Green Top SPECIMEN DISCARDED AFTER 1 WEEK ()?? 08/17/2022 09:45 Hold Gel Top SPECIMEN DISCARDED AFTER 1 WEEK ()?? 08/17/2022 09:45 ?? UA/URINALYSIS Appear/Color, Urine YELLOW ()?? 08/16/2022 06:41 Specific [place], Urine 1.019 ()?? 08/16/2022 06:41 pH, Urine 6.0 ()?? 08/16/2022 06:41 Albumin, Urine 1+ (Abnormal)?? 08/16/2022 06:41 Glucose, Urine NEGATIVE ()?? 08/16/2022 06:41 Ketones, Urine NEGATIVE ()?? 08/16/2022 06:41 Bilirubin, Urine NEGATIVE ()?? 08/16/2022 06:41 Hemoglobin, Urine NEGATIVE ()?? 08/16/2022 06:41 Nitrite, Urine NEGATIVE ()?? 08/16/2022 06:41 Leukocyte, Urine 2+ (Abnormal)?? 08/16/2022 06:41 Urobilinogen NORMAL mg/dL ()?? 08/16/2022 06:41 WBC's, Urine 33 /HPF (High)?? 08/16/2022 06:41 RBC's, Urine 2 /HPF ()?? 08/16/2022 06:41 Bacteria HEAVY HPF (Abnormal)?? 08/16/2022 06:41 Squamous Epith <1 /HPF ()?? 08/16/2022 06:41 Mucus SLIGHT /LPF ()?? 08/16/2022 06:41 Hold Urine Culture Testing available 48 hours from time of collection. ()?? 08/16/2022 06:41 ? URINE OTHER Protein, Urine Random 33 mg/dL (High)?? 09/15/2022 12:44 Est Creatinine Clearance 76.49 mL/min ()?? 09/24/2022 02:43 ?? VIROLOGY COVID-19 by RT-PCR NEGATIVE ()?? 08/16/2022 12:10 ? 30??minutes spent on discharge ?? Patient was??seen and plan of care discussed with Dr. Friend ?? Kosta Patel MD Internal Medicine PGY-2 Pager #[phone] * Skyler GUTIÉRREZ, Lauryn: PERFORM Event Display: Patient Education/Instruction Authored Date: [id number] Inpatient Adult Discharge Instructions [address] [address] Name: AYDEN TAMAYO : 1970 Visit: 08/16/2022 12:58:00 Current Date: 09/24/2022 15:51 Account: [id number] Inpatient Adult Discharge Instructions We would like to thank you for allowing us to assist you with your healthcare needs. The following includes patient education materials and information regarding your injury/illness. Our entire staffstrives to provide an excellent experience for our patients and their families. PLEASE ENSURE YOU FOLLOW-UP PER THE INSTRUCTIONS BELOW! ?? YOUR OPINION IS IMPORTANT TO US! Please complete the survey you may receive by mail or email. Your feedback will be used to make improvements to the healthcare experiences of our patients and their families. Surveys are administered by [employer] ?? If further treatment with your primary care physician or another doctor is recommended, it is important for you to keep the appointment. Call your primary care physician or return to the Emergency Department immediately if your condition worsens, fails to improve, or new symptoms develop. If you need to find a doctor, you can call [facility] [employer] for a referral at [phone] or toll free at [phone]) or log in to [email or web address] ?? You can view and manage your care through the patient portal or by using a health care anupam of your choosing. [employer] is a website that allows you to securely view your medical information including your hospital discharge summary, office visit summaries, medications and follow-up visits. You can also request appointments, renew medications, and request access to your medical information using a health care anupam of your choosing, or just ask a question. You can enroll at [email or web address] or register during your next office visit. You have been discharged from [facility], Patient Care Unit: D5A. If you have any questions regarding these instructions after you leave, please call us and we will be happy to assist you. [facility] Your Care Team Attending Physician Phuc GONZALEZ, Scarlet Consulting Providers North GONZALEZ, Juan Craig; Eliana GONZALEZ, Guerda; Lydia MAGALLON, Ya Dunbar; Aurelia GONZALEZ, Catarino Stahl; Crystal GONZALEZ, Cecil Stein; [place] Garza; Karine GONZALEZ, Danyell; Mika GONZALEZ, Scott; Morelia GONZALEZ, Juanjose; Stevan GONZALEZ, Vitayl Fournier Discharging Providers Amanda GONZALEZ, Kosta Reason for Admission Dizziness Your Diagnosis Dizziness Stroke Orthostatic hypotension Tests Performed Below is a partial list of the tests performed during your hospitalization. You may have had other tests and procedures not included in this list. Please discuss all test results with your provider. Anticardiolipin Ab IgG/IgM Basic Metabolic Panel Beta 2 Glycoprotein 1 Ab BUN Calcium Ionized Calcium Level CBC CBC w/ Differential Comprehensive Metabolic Panel COVID-19 (Novel Coronavirus), Rapid PCR Creatinine CRP Electrolytes ESR Free [place] and Lambda Light Chains Glucose Level GLUCOSE POC HEMOGLOBIN A1C High??Sensitivity??Troponin T HOLD BLUE TUBE HOLD GEL TUBE HOLD GREEN TUBE HOLD LAVENDER TUBE Immunofixation Serum Immunofixation Urine Random?-- Results Pending -- IMMUNOGLOBULIN TOTAL LIGHT CHAINS, URINE INR Ionized Calcium LFT's LIPID PANEL Lupus Anticoagulant Coag Panel Magnesium Level Mg Level Phosphorus Level ProBNP PT (INR) PTT TSH TSH with T4 Reflex (Adults Only) Urinalysis w/hold for Urine Culture Urine [place] Light Chains Quant?-- Results Pending -- Brain MRI W+W/O Contrast CT Angio Head CT Angio Neck CT Head/Brain W/O Contrast Doppler Ext Lower Venous Bilat (US) MRI Cardiac W+W/O Contrast NM Tumor SPECT XR Chest 2 Views Frontal and Lat You will be contacted within 72 hours with your results. Primary Care Provider Courtney GONZALEZ, Ghotra A Advance Directive Health Care Proxy on File Yes - Health Care Proxy Discharge Vitals Temperature: 98.1 DegF Height: 170.7 cm Pulse Rate: 84 bpm Height: 170.7 cm Respiratory Rate: 18 br/min Weight: 95.3 kg Systolic Blood Pressure:??146 mm Hg??High Body Mass Index:??33.01 kg/m2??Critical Diastolic Blood Pressure:??94 mm Hg??High Body surface area: 2.14 Oxygen Saturation: 100 % ?? Studies Pending All tests and labs ordered during this hospital stay have been completed unless listed below. Please discuss all pending results with your provider listed above in these instructions. ?? Add On Lab Order Creatinine Urine Hold Gel Top Tube (HOLD GEL TUBE) Immunofixation Urine Random [place] Light Chains Urine Quant (Urine [place] Light Chains Quant) Microalbumin Urine Protein/Creatinine Ratio Urine What to do next Instructions From Your Doctor You are to start taking Lovenox 100mg injections on 09/27 for 5 days. At this time on 09/27 you arealso to restart your warfarin. You will have home health to draw your blood levels. Please call andschedule a follow up with your primary care physician as well as mention that you are restarting Coumadin. Discharge Orders Activity:??OOB as Angela With Assistance HOB 30 Degrees up in recliner chair 1-2 hours, 3 times a day as tolerated Code Status:?? Full Resuscitation Scheduled Follow-Up Appointments Saturday 10:30 AM EDT ?? With: Christian GONZALEZ, Hemal Where: [facility] Neurology [address] [place] [address], [address] [place] [address]- Status: Pending You Need to Schedule the Following Appointments Follow Up with??Hemal Gonzales When:??10/29/2022 10:30 AM EDT Why: THIS IS A PHONE FOLLOW UP-MD WILL CALL YOU-PLEASE DO NOT COME TO THE OFFICE Follow Up with??Brandin Valdez When:??Within 1 to 2 weeks Discharge Medications AYDEN TAMAYO :1970 Visit Date:08/16/2022 Medications: Please continue your medications until treatment is completed or stopped by your provider. Medications not listed below should be discontinued. Discuss any questions related to medications with your provider. What How Much When Instructions Next Dose New Enoxaparin (Lovenox 100 mg/ mL injectable solution) 100 Milligram Subcutaneous Injection Daily *Note: Treatment = 1.5mg/ kg/ day, renal dosing = 1mg/ kg/ day* ?? Pickup at [place] [address] 09/27 6pm New Midodrine (midodrine 5 mg oral tablet) 1 tab(s) Oral 3 times a day Pickup at [place] [address] 09/24 9pm Changed Atorvastatin (atorvastatin 10 mg oral tablet) 1 tab(s) Oral Daily Pickup at [place] [address] 09/24 9pm Changed Brimonidine Ophthalmic (brimonidine 0.2% ophthalmic solution) See instructions 1 drops Every 8 hours to right eye ?? Pickup at [place] [address] 09/24 9pm Changed Carvedilol (carvedilol 3.125 mg oral tablet) 1 tab(s) Oral Twice a day Pickup at [facility] 3 09/24 9pm Changed Warfarin (warfarin 5 mg oral tablet) See instructions Take 2 to 3 tablets by mouth daily as directed by the [facility] ?? *As directed by clinic, may resume??09/27*?? Changed Warfarin (warfarin 5 mg oral tablet) See instructions Take 1 to 2 and 1/ 2 tablets by mouth daily as directed by the Coumadin Clinic ?? *As directed by clinic, may resume??09/27*?? Unchanged Aspirin (aspirin 81 mg oral delayed release tablet) 1 tab(s) Oral Daily 09/25 9am Unchanged Duloxetine (duloxetine 20 mg oral enteric coated capsule) 1 capsule Oral Twice a day 09/24 9pm Unchanged Durable Medical Equipment (Walker) See instructions One ?? As Directed Unchanged Escitalopram (escitalopram 10 mg oral tablet) 2 tab(s) Oral Daily 09/25 9am Unchanged Lorazepam (LORazepam 0.5 mg oral tablet) 1 tab(s) Oral Daily at Bedtime as needed for as needed for anxiety (filled 14 tabs still has some) ?? As Needed Unchanged Metformin (metFORMIN 1000 mg oral tablet) 1 tab(s) Oral Daily before breakfast 09/25 9am Unchanged sacubitril-valsartan (Entresto 24 mg-26 mg oral tablet) 1 tab(s) Oral Twice a day Pickup at [place] [address] 09/24 9pm Unchanged Topiramate (topiramate 100 mg oral tablet) 1 tab(s) Oral Twice a day 09/24 9pm Pharmacy Information [facility] 3: [address], [place] [id number] [phone] ?? What How Much When Comments Stop Taking Insulin Aspart (Insulin Aspart FlexPen 100 units/ mL injectable solution) INJECT MAX OF 14 UNITS SUBCUTANEOUSLY PER SLIDING SCALE THREE TIMES A DAY ?? Stop Taking Insulin Glargine (Insulin Glargine Inj) 10 unit(s) Subcutaneous Injection Daily Stop Taking Losartan (losartan 25 mg oral tablet) 2 tab(s) Oral Daily Stop Taking Multivitamin (Daily Vin oral tablet) 1 tab(s) Oral Daily Test Results Below is a partial list of the most recent Laboratory test results done prior to this discharge. You may have had other tests and procedures not included in this list. Please discuss all test resultswith your provider. Est Creatinine Clearance - 76.49 mL/min (09/24/2022) Anticardiolipin Ab IgG/IgM (08/22/2022) ? ?Cardiolipin Ab IgM - <9? ?Cardiolipin Ab IgG - <9 Basic Metabolic Panel (09/24/2022) ???Sodium - 143 mmol/L???Potassium - 4.1 mmol/L???Chloride - 110 mmol/L???Bicarbonate Level - 24 mmol/L???Anion Gap - 9???Glucose Level - 160 mg/dL???BUN - 29 mg/dL???Creatinine-Blood - 1.1 mg/dL???Estimated GFR Creatinine - 80 ML/MIN/1.73 M2???Calcium - 9.5 mg/dL Beta 2 Glycoprotein 1 Ab (08/22/2022) ? ?B2GP1, IgG - <9? ?B2GP1, IgM - <9 BUN (09/04/2022) ???BUN - 27 mg/dL Calcium Ionized (09/17/2022) ???Calcium, Ionized pH Corrected - 1.30 mmol/L Calcium Level (08/27/2022) ???Calcium - 9.8 mg/dL CBC (09/24/2022) ???WBC - 11.1 k/mm3???RBC - 4.63 m/mm3???Hgb - 12.4 Gm/dL???Hct - 38.8 %???MCV - 83.8 femtoliters???MCH - 26.8 pg???MCHC - 32.0 g/dL???Platelet Count - 206 k/mm3???RDW-SD - 45.3 femtoliters???MPV - 11.6 femtoliters???Nucleated RBC (Automated) - 0.0 #/100 WBC'S???Abs. NRBC - 0.0 k/mm3 CBC w/ Differential (08/27/2022) ???WBC - 10.2 k/mm3???RBC - 4.86 m/mm3???Hgb - 12.6 Gm/dL???Hct - 40.2 %???MCV - 82.7 femtoliters???MCH - 25.9 pg???MCHC - 31.3 g/dL???Platelet Count - 242 k/mm3???RDW-SD - 43.8 femtoliters???MPV - 11.3 femtoliters???Nucleated RBC (Automated) - 0.0 #/100 WBC'S???Abs. NRBC - 0.0 k/mm3???Abs. Neut - 5.5 k/mm3???Abs. Lymph - 3.2 k/mm3???Abs. Brazos - 1.0 k/mm3???Abs. Eo - 0.4 k/mm3???Abs. Baso - 0.1 k/mm3???Neut % - 53.5 %???Lymph % - 31.5 %???Brazos % - 10.1 %???Eos % - 3.7 %???Baso % - 0.7 %???Imm Gran - 0.5 %???Abs. Imm Gran - 0.1 k/mm3 Comprehensive Metabolic Panel (09/17/2022) ???Sodium - 142 mmol/L???Potassium - 4.5 mmol/L???Chloride - 105 mmol/L???Bicarbonate Level - 23 mmol/L???Anion Gap - 14???Glucose Level - 123 mg/dL???BUN - 36 mg/dL???Creatinine-Blood - 1.2 mg/dL???Estimated GFR Creatinine - 73 ML/MIN/1.73 M2???Calcium - 9.6 mg/dL???Protein, Total - 6.4 Gm/dL???Alb umin - 3.8 Gm/dL???AG Ratio - 1.5???Alkaline Phosphatase - 77 units/L???AST (SGOT) - 20 units/L???ALT (SGPT) - 40 units/L???Bilirubin, Total - 0.2 mg/dL COVID-19 (Novel Coronavirus), Rapid PCR (08/16/2022) ???COVID-19 by RT-PCR - NEGATIVE Creatinine (09/04/2022) ???Creatinine-Blood - 1.0 mg/dL???Estimated GFR Creatinine - 91 ML/MIN/1.73 M2 CRP (08/21/2022) ???C-Reactive Protein - 0.4 mg/dL Electrolytes (09/04/2022) ???Sodium - 140 mmol/L???Potassium - 4.2 mmol/L???Chloride - 106 mmol/L???Bicarbonate Level - 22 mmol/L???Anion Gap - 12 ESR (08/21/2022) ???Sed Rate - 25 mm/hr Free [place] and Lambda Light Chains (09/17/2022) ???Free [place] Light Chains - 32.55 mg/L???Free Lambda Light Chains - 16.22 mg/L???Free [place]\LambdaRatio - 2.01 Glucose Level (08/23/2022) ???Glucose Level - 94 mg/dL GLUCOSE POC (09/24/2022) ???Glucose, POC - 143 mg/dL HEMOGLOBIN A1C (09/13/2022) ???Hemoglobin A1C (Monitoring) - 5.6 % High??Sensitivity??Troponin T (08/16/2022) ???High Sensitivity Troponin (HSTnT) - 37 ng/L HOLD BLUE TUBE (08/17/2022) ???Hold Blue Top - SPECIMEN DISCARDED AFTER 4 HOURS. HOLD GEL TUBE (08/17/2022) ???Hold Gel Top - SPECIMEN DISCARDED AFTER 1 WEEK HOLD GREEN TUBE (08/17/2022) ???Hold Green Top - SPECIMEN DISCARDED AFTER 1 WEEK HOLD LAVENDER TUBE (09/13/2022) ???Hold Lavender Top - SPECIMEN DISCARDED AFTER 24 HOURS. Immunofixation Serum (09/17/2022) ???IgG - 1083 mg/dL???IgA - 390 mg/dL???IgM - 29 mg/dL???Immunofixation-Serum - Normal immunofixation pattern (No monoclonal protein detected) IMMUNOGLOBULIN TOTAL LIGHT CHAINS, URINE (09/15/2022) ???[place] Total Light Chain, Urine - 26.93???Lambda Total Light Chain, Urine - 3.09???[place]/Lambda Total Light Chain Ratio - 8.72 INR (09/06/2022) ???INR - 1.1???Protime (PT) - 11.6 seconds Ionized Calcium (08/20/2022) ???Calcium, Ionized pH Corrected - 1.33 mmol/L LFT's (08/17/2022) ???Protein, Total - 6.5 Gm/dL???Albumin - 3.9 Gm/dL???Alkaline Phosphatase - 85 units/L???AST (SGOT) - 19 units/L? ?ALT (SGPT) - 33 units/L? ?Bilirubin, Total - 0.3 mg/dL? ?Bilirubin, Direct - <0.2 mg/dL???Bilirubin, Indirect - Direct bilirubin is less than the measureable limit. Therefore, indirect LIPID PANEL (08/26/2022) ???Cholesterol - 100 mg/dL???Triglycerides - 140 mg/dL???HDL Cholesterol - 28 mg/dL???LDL Cholesterol - 44 mg/dL???Non HDL Cholesterol - 72 mg/dL Lupus Anticoagulant Coag Panel (08/22/2022) ???Dilute Daryn's Viper Venom Test - 41.9 seconds???PTT-LA (Lupus-Sensitive) - 32.8 seconds???Lupus Anticoagulant Interpretation - Comment: Magnesium Level (09/17/2022) ???Magnesium - 1.8 mg/dL Mg Level (09/24/2022) ???Magnesium - 1.7 mg/dL Phosphorus Level (09/17/2022) ???Phosphorus - 3.8 mg/dL ProBNP (08/16/2022) ???Nt-Probnp - 2426 pg/mL PT (INR) (08/17/2022) ???INR - 3.3???Protime (PT) - 32.4 seconds PTT (08/20/2022) ???APTT - 25.9 seconds TSH (08/17/2022) ???TSH - 0.89 uIU/mL TSH with T4 Reflex (Adults Only) (08/16/2022) ???TSH - 2.14 uIU/mL Urinalysis w/hold for Urine Culture (08/16/2022) ???Appear/Color, Urine - YELLOW???Specific [place], Urine - 1.019???pH, Urine - 6.0???Albumin, Urine - 1+???Glucose, Urine - NEGATIVE???Ketones, Urine - NEGATIVE???Bilirubin, Urine - NEGATIVE???Hemoglobin, Urine - NEGATIVE???Nitrite, Urine - NEGATIVE???Leukocyte, Urine - 2+???Urobilinogen - NORMAL???WBC's, Urine - 33 /HPF? ?RBC's, Urine - 2 /HPF? ?Bacteria - HEAVY? ?Squamous Epith - <1 /HPF? ?Mucus - SLIGHT???Hold Urine Culture - Testing available 48 hours from time of collection. Allergies (NKA means No Known Allergies) vancomycin Problems Active Problems??(5) COVID-19?? Dizziness?? Obese class I?? Tubular adenoma of colon?? Urinary tract infection?? Education Materials Below is the list of Educational Leaflet Providered with your Discharge Instructions. Understanding Orthostatic Hypotension?? Risk Factors for Stroke?? Discharge Instructions for Stroke?? Valuables and Belongings I fully understand and agree that [facility] accepts no responsibility for all my personal property including clothing, toilet articles, radios, jewelry, dentures, hearing aids, rings, money, or any other property that is in my possession or is brought to me after admission. I understand certain valuables may be placed in a hospital safe for a short period of time. I understand that the hospital is not liable for loss or damage due to accident, fire, or other natural occurrence while said property is in the safe. I accept full responsibility for any personal property that I keep with me, and will not hold the hospital responsible in case of loss or disappearance. I acknowledge that i have been encouraged to send valuables and belongings home. ?? Review of Valuable and Belonging List: With patient Disposition of Belongings: Sent home with patient/family Date for Pt to Sign Valuables/Belongings: 09/24/22 15:51:00 ?? Other Discharge Information ? Case Management Discharge Plan?? Discharge Plan?? Discharge Agency Information?? Discharge Level of Care at Discharge: Homehealth/VNA Name of Agency #1: [facility] Discharge VNA/Hospice/Home Care: [facility] [phone] Service Categories #1: Occupational Therapy, Physical Therapy, Custodial ?? Service Comments #1: A referral was made to [facility] for home services. Someone will contact you 1-2 days after you have been discharged home. If you do not hear from anyone, please contact the agency ?? Pulmonary Rehab Status?? Pulmonary Rehab Discharge Status?? Respiratory Rate: 18 br/min ? Common Emergency Awareness Tips IS IT A STROKE? Act FAST and Check for these signs: FACE Does the face look uneven? ARM Does one arm drift down? SPEECH Does their speech sound strange? TIME Call at any sign of stroke ?? Heart Attack Signs Chest discomfort: Most heart attacks involve discomfort in the center of the chest and lasts more than a few minutes, or goes away and comes back. It can feel like uncomfortable pressure, squeezing, fullness or pain. Discomfort in upper body: Symptoms can include pain or discomfort in one or both arms, back, neck, jaw or stomach. Shortness of breath: With or without discomfort. Other signs: Breaking out in a cold sweat, nausea, or lightheaded. Remember, MINUTES DO MATTER. If you experience any of these heart attack warning signs, call to get immediate medical attention! ?? Smoking can increase your chances of developing chronic health problems and can cause harmful effects to other family members in your house. If you smoke, you are strongly encouraged to quit. Please call [facility] [employer] Link at [phone] or [phone] ([phone]) or log in to [email or web address] for referrals to smoking cessation programs. ?? 013 Suicide & Crisis Lifeline is available 05/11 if you or someone you know needs to find a reason to keep living. By calling 250 you'll be connected to a skilled, trained counselor at a crisis center in your area. INPATIENT DISCHARGE INSTRUCTIONS SIGNATURE PAGE RONI AYDEN Location:[facility] Registration Date and Time:08/16/2022 12:58 EDT Primary Care Physician: Brandin Valdez MD, Attending Physician: Scarlet Friend MD, I AYDEN TAMAYO, have received the above patient education materials/instructions and have verbalized understanding. If ambulance or transport services are being used I further acknowledge being given a choice of service. ?? If you need to contact me, please call me at this number: . Patient/Hotel Maintenance Technician Name: Patient/Hotel Maintenance Technician Signature: Relationship to Patient: Witness Name/Signature: Date: * Lauryn Holland RN: PERFORM Event Display: Patient Education Leaflets Authored Date: [id number] Understanding Orthostatic Hypotension ?? 77693 Understanding Orthostatic Hypotension?? Orthostatic hypotension is low blood pressure when you stand up from sitting or lying down. It can cause symptoms for such as dizziness, lightheadedness, and blurry vision. It may also cause faintingand falls. Sitting or lying down makes the symptoms get better. How to say it [id number] ?? What causes orthostatic hypotension??? Blood pressure is how much force with which your blood moves through your blood vessels. Hypertension means blood pressure is high. Hypotension means it???s low. Orthostatic means upright posture. Many things can cause blood pressure to be too low when you stand up.?? Some medicines can cause orthostatic hypotension. These include: ??? Blood pressure medicines ??? Water pills (diuretics) ??? Some antidepressants ??? Some heart medicines ??? Some pain, anxiety, sedative, and sleeping medicines?? Other causes include: ??? Eating a large meal ??? Loss of body fluids (dehydration) from vomiting, diarrhea, or not drinking enough ??? Changes in blood vessels because of older age ??? Severe infection ??? High fever ??? Blood loss, such as bleeding from the stomach or intestines ??? Neurological diseases that impair the autonomic nervous system, such as Parkinson disease ??? Congestive heart failure ??? Diabetes ??? Alcoholism ??? Peripheral neuropathy? Symptoms of orthostatic hypotension?? Symptoms happen when you stand up from sitting or lying down. They can also happen after standing for a long time. They can include: ??? Feeling lightheaded ??? Feeling dizzy ??? Weakness ??? Blurred vision ??? Tunnel vision ??? Pain in the back of head, neck, and shoulders ??? Fainting?? The symptoms get better or go away when you sit or lie down.? Diagnosing orthostatic hypotension?? Your healthcare provider will ask about your symptoms and health history. Make sure to tell him or her every medicine that you take. This includes [id number] supplements, vitamins, and herbs. Also tell your healthcare provider if you have been sick recently.?? You may also have tests such as: ??? Blood pressure test. Your healthcare provider will measure your blood pressure while sitting and when standing up. ??? Blood tests. These check for illness or other conditions that may cause the problem. ??? Electrocardiogram (ECG). This test looks at the electrical activity of your heart.? Treatment for orthostatic hypotension?? Treatment may depend on what's causing your low blood pressure. It can include any of these: ??? Stopping medicines that may be causing symptoms ??? Standing up slowly ??? Not spending time inhot weather ??? Drinking plenty of fluids ??? Eating more salt ??? Drinking less alcohol?? In some cases, your healthcare provider may prescribe a medicine to help prevent orthostatic hypotension. Talk with your healthcare providers about the risks, benefits, and possible side effects of all medicines.? Possible complications of orthostatic hypotension?? The condition can cause falls, especially in older adults. Falls can lead to injury and time in thehospital. People with orthostatic hypotension may also have a higher risk for future heart problems. These include congestive heart failure and heart rhythm problems. In some cases, it can cause stroke.? Living with orthostatic hypotension?? Change positions slowly from lying to standing. When getting out of bed, sit on the side of the bedwith your legs down for at least 30 seconds before standing. This gives your body time to adjust tothe position change.? When to call your healthcare provider?? Call your healthcare provider if you have any of the following: ??? Dizziness, lightheadedness, or fainting ??? Fever of 100.4??F (38??C) or higher, or as directed by your healthcare provider ??? Symptoms that don???t get better, or get worse ??? Black or red color in your stools or vomit ??? Diarrhea or vomiting that doesn???t stop ??? Inability to eat or drink ??? Burning when you urinate ??? Foul-smelling urine ?? Last Reviewed Date: 2022 ?? [employer]. All rights reserved. This information is not intended as a substitute for professional medical care. Always follow your healthcare professional's instructions. ?? * Kosta Patel MD: PERFORM Event Display: Patient Education Leaflets Authored Date: [id number] Risk Factors for Stroke ?? 20904 Risk Factors for Stroke Certain health and lifestyle issues???called risk factors???increase your chances of having a stroke. The biggest risk factor for stroke is high blood pressure. But there are many other factors that also put you at risk. The below list can help you identify which risk factors you have. That way, you know where you need to make healthy changes. Talk with your healthcare provider about ways to helpreduce your risk factors. What are your risk factors? Risk factors are different for each person. Check off the factors that apply to you. Keep in mind that some factors, such as your age, can???t be changed. But others can be managed. Health risk factors You have high blood pressure. You???re overweight. You have unhealthy cholesterol levels. You have atrial fibrillation. You have atrial flutter. You???ve had a heart attack. You have narrowed arteries. You have diabetes. You are a man. You are an . You are an . You are an . Lifestyle risk factors You rarely exercise. You often eat salty, fried, or greasy foods. You smoke. You have more than 2 alcoholic drinks per day. Age and family history You???re over age 60. A parent, brother, or sister has had a stroke. ?? Metabolic syndrome Any of the factors above puts you at increased risk for stroke. But having 3 or more of certain risk factors raises your risk more. This is a condition called metabolic syndrome. These factors include too much weight around your waist, high blood pressure, high blood sugar, and unhealthy cholesterol levels. If you're a woman, your risks may also include polycystic ovary syndrome. If you have any of these risk factors, be sure to talk with your healthcare provider about how to decrease your riskof stroke and improve your overall health. ?? Last Reviewed Date: 2021 ?? [employer]. All rights reserved. This information is not intended as a substitute for professional medical care. Always follow your healthcare professional's instructions. ?? * Kosta Patel MD: PERFORM Event Display: Patient Education Leaflets Authored Date: [id number] Discharge Instructions for Stroke ?? 15378 Discharge Instructions for Stroke You have a high risk for a stroke, or??a TIA (transient ischemic attack).??During a stroke, blood stops flowing to part of your brain. This can damage areas in the brain that control other parts of the body. Symptoms from a stroke depend on which part of the brain has been affected. Stroke risk factors Once you???ve had a stroke, you???re at greater risk for another one. Listed below are some other factors that can raise your risk for a stroke: ??? High blood pressure ??? High cholesterol ??? Cigarette or cigar smoking ??? Diabetes ??? Carotid or other artery disease ??? Atrial fibrillation, atrial flutter,??or other heart disease ??? Not being physically active ??? Obesity ??? Certain blood disorders, such as sickle cell anemia ??? Drinking too much alcohol ??? Abusing street drugs ??? Race ??? Gender ??? Family history of stroke ??? Diet high in salty, fried, or greasy foods ?? Changes in daily living Doing??some everyday tasks may be hard after you???ve had a stroke. But you can learn new ways to manage. In fact, doing daily activities may help you to regain muscle strength. This can help your affected arm or leg work more normally. Be patient. Give yourself time to adjust. And appreciate the progress you make. ?? Daily activities You may be at risk of falling. Make changes to your home to help you walk more easily. A therapist will decide if you need an assistive device, such as a cane or walker, to walk safely. You may need to see an occupational therapist (OT). Or you may see a physical therapist (PT). Thesehealthcare providers can help you to learn new ways of doing things. For example, you may need to make changes in how you bathe or dress. You may also need a speech therapist. This is someone who helps you speak normally again and be able to swallow. Tips for showering or bathing ??? Test the water temperature with a hand or foot that was not affected by the stroke. ??? Use grab bars, a shower seat, a handheld showerhead, and a long- handled brush. ??? Use any other device as advised by your therapists. Tips for getting dressed ??? Dress while sitting, starting with the affected side or limb. ??? Wearshirts that pull easily over your head. Wear pants or skirts with elastic waistbands. ??? Use zippers with loops attached to the pull tabs. ?? Lifestyle changes ??? Take your medicines exactly as directed. Don???t skip doses. ??? Begin an exercise program. Askyour provider how to get started. Ask how much activity you should try to get every day or week. You can benefit from simple activities such as walking or gardening. ??? Limit how much alcohol you drink. ??? Control your cholesterol level. Follow your provider???s advice about how to do this. ??? If you are a smoker, quit now. Join a stop-smoking program to improve your chances of success. Ask your provider about medicines or other methods to help you quit. ??? Learn stress management methods. These can help you deal with stress in your home and work life. Diet Your healthcare provider will guide you on changes you may need to make to your diet. They may advise that you see a registered dietitian for help with changes. The changes can improve your cholesterol, blood pressure, and blood sugar. Changes may include: ??? Reducing the amount of fat and cholesterol you eat ??? Reducing the amount of salt (sodium) in your diet, especially if you have high blood pressure ??? Eating more vegetables and fruits ??? Eating more lean proteins, such as fish, poultry, and beans and peas (legumes) ??? Eating less red meat and processed meats ??? Using low-fat dairyproducts ??? Limiting vegetable oils and nut oils ??? Limiting sweets and processed foods such as ch ips, cookies, and baked goods ??? Not eating trans fats. These are often found in processed foods. Don't eat any food that has hydrogenated oils listed in its ingredients. ?? Follow-up care ??? Keep your medical appointments. Close follow-up is important to stroke rehabilitation and recovery. ??? Some medicines require blood tests to check for progress or problems. Keep follow-up appointments for any blood tests ordered by your providers. ?? Call 911 Call 911 right away??if you have any of the following symptoms of stroke: ??? Weakness, tingling, or loss of feeling on one side of your face or body ??? Sudden double vision or trouble seeing in one or both eyes ??? Sudden trouble talking or slurred speech ??? Trouble understanding others ??? Sudden, severe headache ??? Dizziness, loss of balance, or a sense of falling ??? Blackouts or seizures B.E. F.A.S.T. is an easy way to remember the signs of stroke. When you see these signs, you know that you need to call 911 fast. B.E. F.A.S.T. stands for: ??? B is for balance. Sudden loss of balance or coordination. ??? E is for eyes. Vision changes in one or both eyes. ??? F is for face drooping. One side of the face is drooping or numb. When the person smiles, the smile is uneven. ??? A is for arm weakness. One arm is weak or numb. When the personlifts both arms at the same time, one arm may drift downward. ??? S is for speech difficulty. You may notice slurred speech or trouble speaking. The person can't repeat a simple sentence correctly when asked. ??? T is for time to call 911. If someone shows any of these symptoms, even if they go away, call 911 right away. Make note of the time the symptoms first appeared. ?? Last Reviewed Date: 2021 ?? [id number] [employer]. All rights reserved. This information is not intended as a substitute for professional medical care. Always follow your healthcare professional's instructions. ?? * Jesus Manuel GUTIÉRREZ, Yaneth: PERFORM, SIGN, VERIFY Event Display: Patient Education Handout Authored Date: [id number] * Event Display: Provider Clarification Note Please click on pdf link to open report MR Brain WO and W contrast IV * Armando , NIKHIL S: Tania Jesus MD: VERIFY Event Display: Result: Authored Date: [id number] MRI Brain W+W/O Contrast INDICATION / CLINICAL QUESTION: Reason: Other:; hematoma, ?stroke w conversion; Clinical Question(s): Infarction; Order Comment: Please see Reference Text for complete list of contraindications Infarction TECHNIQUE: MRI of the brain was performed with and without contrast utilizing sagittal and axial T1, axial T2, axial FLAIR, axial SWAN, and axial DWI sequences, and post-contrast 3D T1 NIEVES with multiplanar reformats. 20 mL of Clariscan was administered intravenously. COMPARISON: MRI of 02/15/2022, CT of 08/17/2022. FINDINGS: BRAIN and EXTRA-AXIAL SPACES: There is a 2.1 x 1.5 x 1.9 cm T1 hyperintense masslike lesion in the left thalamus most consistent with an evolving hematoma. There is mild surrounding FLAIR hyperintensity suggesting mild surrounding vasogenic edema. There is no significant mass effect. There is no midline shift, or effacement of the basal cisterns. On diffusion- weighted imaging, there are a few punctate foci of abnormal diffusion in the left anterolateral frontal cortex and left occipital cortex without definite restricted diffusion may represent late subacute infarcts. Extensivefoci of microhemorrhages throughout the supratentorial and infratentorial brain are redemonstrated,mildly progressed since prior examination. Moderate patchy foci of T2 prolongation are seen in the white matter and in the raysa. Chronic lacunar infarcts in the right thalamus and raysa and right inferior cerebellum are redemonstrated. The midline structures are unremarkable. Ventricles, cisterns, and sulci are normal in size and configuration, without hydrocephalus. No abnormal extra-axial fluid collections are seen. Meningeal surfaces are normal. No other abnormal intracranial enhancement is seen. Major intracranial flow voids are present. EXTRACRANIAL SOFT TISSUES: Orbits are unremarkable. There is a mucous retention cyst or polyp in the left maxillary sinus. Paranasal sinuses and mastoids are otherwise unremarkable. BONES: Marrow signal is preserved. IMPRESSION: Evolving left thalamic intraparenchymal hematoma with mild surrounding vasogenic edema. Mildly progressed extensive supratentorial and infratentorial microhemorrhages which may be relatedto hypertensive microhemorrhages, however other etiologies such as cerebral amyloid angiopathy needto be excluded. Clinical correlation and appropriate follow-up is advised. Punctate foci of abnormal diffusion in the left supratentorial brain as described may be related tolate subacute infarcts. Moderate nonspecific white matter T2 hyperintensities likely sequela of chronic microangiopathy. WSN: [id number] Ordering Physician: Angie Carlton Dictated By: Tania Manrique MD Dictated Date/Time: 08/18/22 1:30 pm Reviewed By: Tania Manrique MD Signed By: Tania Manrique MD Signed Date/Time: 08/18/22 1:30 pm Transcribed By: ROBERT Transcribed Date/Time: 08/18/22 12:53 pm MR Heart WO and W contrast IV * [facility] , CIS S: TRANSCAPPLE Escalante MD, Charlotte Mindi: VERIFY Event Display: Result: Authored Date: Examination: MRI Cardiac W+W/O Contrast. CLINICAL HISTORY:Reason: Other:; Cardiac Amyloidosis Suspected, Further Testing; Clinical Question(s): Other:; Order Comment: Please see Reference Text for complete list of contraindications. 51-year-old gentleman with history of nonischemic cardiomyopathy who is admitted to the hospital with left thalamic hemorrhage. Patient was on Coumadin for history of prior embolic CVA, pulmonary embolism, arterial and venous thrombosis. Previous work-up for coagulopathic condition is negative. Last echocardiogram was on 08/22/2022: The left ventricular size is normal. There is moderate to severe concentric left ventricular hypertrophy. The left ventricular ejection fraction is 35-45%. There is mild to moderate global hypokinesis with regional variation. Consider infiltrative process. Grade I, mild diastolic dysfunction with impaired LV relaxation. The left atrium is moderately dilated. The aortic valve is poorly visualized. There is no aortic stenosis. There is trace aortic regurgitation. The right ventricular size and function appears grossly normal. TECHNIQUE: Cardiac MR infiltrative disease/viability protocol on the [employer] 1.5 Gissell scanner. Axial T2 dark blood. Short axis triple-IR T2. Multilevel cine FIESTA breathhold imaging performed in the short axis and 2-chamber, 3-chamber, and 4-chamber long axis orientations to evaluate cardiac function. The patient received 38 cc Clariscan (gadoterate meglumine) IV. Dynamic enhancement imaging performed using a rapid multilevel T1-weighted gradient echo sequence during contrast administration. Multiplanar late gadolinium enhancement phase sensitive inversion recovery T1 imaging performed after a 6-7 minute delay. Ventricular volumes based upon semiautomated contouring of cine short axis images performed by myself using [employer]. Normal ranges obtained from the software. COMPARISON: None. FINDINGS: Good image quality was obtained. LV: The left ventricular chamber size was borderline enlarged. There is myocardial thickening: Basal anterior wall 1.7 cm, basal lateral wall 1.6 cm, basal inferior wall 1.6 cm, basal septum 1.6cm. Mid septum 2.1 cm, mid anterior wall 1.3 cm, mid inferior wall 1.4 cm, mid lateral wall 1.4 cm. Apical myocardial thickness ranges from 1.1 to 1.5 cm. There is moderate, marked global hypokinesia, most pronounced in the septum. There are anterior lateral papillary muscle is of prominent size. LV parameters and (normal ranges) [facility] 2003 SSFP Male/Age 20-65/Field 1.5: Absolute values: Myocardial mass: 296 (85-181) g. End-diastolic volume: 250 (101-236) mL. End-systolic volume: 142 (28-93) mL. Stroke Volume: 108 (66-150) mL. Ejection fraction: 43 (55-74) %. Cardiac output: 7.1 L/min. Normalized values based on provided weight 92 kg, height 165 cm: 2 m-sq body surface area: Myocardial mass index: 145 (46-84) g/m-sq. End-diastolic volume index: 126 (52-112) mL/m-sq. End-systolic volume index: 71 mL/m-sq. Stroke volume index: 55 mL/m-sq. Cardiac index: 3.55 (L/min)/m-sq. Myocardial edema/T2 imaging reveals possible edema in the mid anterior wall, mid lateral wall. Dynamic perfusion imaging reveals no abnormality. Late gadolinium enhancement examination reveals remarkable abnormality: There is predominantly marked amount intramural increased signal in the basal- mid myocardium, image7 series 18, including focal near transmural enhancement at the RV insertion sites on the septum image 8 of series 18. The abnormal signal extends to the endocardium for instance image 9 of series 18, however the predominant pattern appears intramural rather than subendocardial. Such pattern suggests hypertrophic cardiomyopathy with differential including sarcoid, myocarditis, less likely amyloid. There is increased intramural signal in the distal inferior wall. The abnormal signal involves more than 20% of the total myocardium. RV: The RV chamber was of normal size. There was normal wall motion. RV parameters and (normal ranges): Absolute values: End-diastolic volume: 192 (110-243) mL. End-systolic volume: 88 (46-112) mL. Stroke Volume: 104 (60-136) mL. Ejection fraction: 54 (47-63) %. Cardiac output: 6.8 L/min. Normalized values: End-diastolic volume index: 97 (58-115) mL/m-sq. End-systolic volume index: 44 mL/m-sq. Stroke Volume index: 53 mL/m-sq. Cardiac index: 3.41 (L/min)/m-sq. Atria: The right atrium was of normal size. The left atrium was upper normal in size. Valves: There is trace regurgitation jet at the aortic valve, 3 chamber series 10. No abnormal flow jet is seen elsewhere. There is no LVOT narrowing or systolic anterior motion of the mitral valve anterior leaflet. Extracardiac: The pericardium was normal. Trace pericardial effusion. The thoracic aorta was of normal size. The main pulmonary artery measures 3.5 cm diameter, suggesting pulmonary hypertension. Incidental Findings: No significant incidental findings were seen. IMPRESSION: Borderline enlargement left ventricle. Myocardial thickening as detailed above with the mid septum up to 2.1 cm thickness. There is moderate, marked global hypokinesia that is most pronounced in the septum. LVEF 43%. There is remarkable abnormal delayed enhancement signal of the myocardium, with a predominantly intramural pattern, suggesting hypertrophic cardiomyopathy, differential including sarcoidosis, myocarditis, less likely amyloid. The abnormal signal involves more than 20% of the total myocardium. Trace regurgitation jet at the aortic valve. Normal size right ventricle with preserved wall motion. RVEF 54%. Normal biatrial size. The main pulmonary artery measures 3.5 cm diameter, suggesting pulmonary hypertension. WSN: [id number] Ordering Physician: Marcos Vidales Dictated By: Charlotte Escalante MD Dictated Date/Time: 09/09/22 11:02 p Reviewed By: Charlotte Escalante MD Signed By: Charlotte Escalante MD Signed Date/Time: 09/09/22 11:02 pm Transcribed By: ROBERT Transcribed Date/Time: 09/09/22 5:10 pm US.doppler Lower extremity vein - bilateral * [facility] , CIS S: TRANSCRIBE Ashish Jackman MD S: VERIFY Event Display: Result: Authored Date: [id number] US Doppler Ext Lower Venous Bilat INDICATION: iph with hx of pe screening for dvt to resstart ; Clinical Question(s): Thrombosis COMPARISON: 02/16/2022 IMAGING TECHNIQUE: Ultrasound of the veins from the groin through the calf was performed using grayscale, color, and spectral Doppler ultrasound assessing for complete compressibility and normal flowcharacteristics. FINDINGS: RIGHT LOWER EXTREMITY: Common femoral vein: Patent. No thrombosis. Femoral vein: Patent. No thrombosis. Popliteal vein: Patent. No thrombosis. Gastrocnemius veins: The visualized portions are patent without evidence of thrombosis. Peroneal veins: The visualized portions are patent without evidence of thrombosis. Posterior tibial veins: The visualized portions are patent without evidence of thrombosis. LEFT LOWER EXTREMITY: Common femoral vein: Patent. No thrombosis. Femoral vein: Patent. No thrombosis. Popliteal vein: Patent. No thrombosis. Gastrocnemius veins: The visualized portions are patent without evidence of thrombosis. Peroneal veins: The visualized portions are patent without evidence of thrombosis. Posterior tibial veins: The visualized portions are patent without evidence of thrombosis. OTHER FINDINGS: Incidentally noted is slow flow in the popliteal veins bilaterally. IMPRESSION: No evidence of deep venous thrombosis. WSN: [id number] Ordering Physician: Khari Gibson Dictated By: Ashish Jackman MD Dictated Date/Time: 08/26/22 3:24 pm Reviewed By: Ashish Jackman MD Signed By: Ashish Jackman MD Signed Date/Time: 08/26/22 3:24 pm Transcribed By: ROBERT Transcribed Date/Time: 08/26/22 3:23 pm CTA Neck vessels W contrast IV * [facility] , CIS S: TRANSCRIBE Cesar GONZALEZ, Kailey N: VERIFY Event Display: Result: Authored Date: [id number] CT Angio Head, CT Angio Neck Reason: Other:; ICH patient on coumadin with dyscojugate gaze, ataxia; Clinical Question(s): Other:; ich; Order Comment: / Other: TECHNIQUE: CT angiogram of the head and neck was performed after bolus administration of intravenous contrast. 100 mL of Omnipaque 300 was administered intravenously. Coronal and sagittal MIP reformatted images were obtained. Additional 3-D images were created on a separate workstation under concurrent supervision by the attending radiologist. All stenoses are measured using NASCET criteria. Weight-based protocol using automatic tube modulation was used to optimize exposure parameters. RADIATION DOSE PARAMETERS: CTDIvol Head: 53.23 mGy, DLP Head: 2112 mGy*cm. COMPARISON: Noncontrast CT head performed concurrently. CTA of the head and neck dated 06/30/2022. FINDINGS: CTA OF THE NECK: Arch: There is a three vessel aortic arch. There is mild atherosclerotic plaque of the aortic arch,but origins of the supra aortic vessels are patent. Right carotid system: The common carotid and cervical internal carotid arteries are patent. There is calcified atherosclerotic plaque at the carotid bifurcation, but no ICA stenosis (0%) by NASCET criteria. Left carotid system: The common carotid and cervical internal carotid arteries are patent. There iscalcified atherosclerotic plaque at the carotid bifurcation, but no ICA stenosis (0%) by NASCET criteria. There is a arwkie-vvhm-zwsvtxtz vertebral artery system. Right vertebral: No significant stenosis. No evidence of dissection or aneurysm. Left vertebral: No significant stenosis. No evidence of dissection or aneurysm. Other: Soft tissues and bones: No evidence of lymphadenopathy. Prominence of the palatine tonsils is againnoted, left greater than right. Enlarged pulmonary artery could reflect pulmonary hypertension. Thethyroid is unremarkable. Visualized lungs are blurred by motion artifact, without significant superi mposed airspace opacity. No acute osseous abnormality. CTA OF THE HEAD: Anterior circulation: Bilateral intracranial ICAs demonstrate atherosclerotic calcification, without stenosis. Bilateral MAURI and MCA branches are patent. There is no significant stenosis, proximal cutoff, aneurysm, or vascular malformation. Hypoplastic right A1 segment, anatomic variant. Posterior circulation: Bilateral intracranial vertebral arteries, the basilar artery, and bilateralsuperior cerebellar and posterior cerebral branches are patent. There is no significant stenosis, proximal cutoff, aneurysm, or vascular malformation. Veins: Major dural venous sinuses are patent. Other: Soft tissues and bones: Left thalamic hemorrhage with surrounding edema. Please refer to the separate head CT. No active extravasation is demonstrated. Orbits are unremarkable. Mucous retention cysts in the left maxillary sinus and right maxillary sinus. IMPRESSION: No proximal occlusion or high grade stenosis in the major arteries of the head and neck. Left thalamic hemorrhage with surrounding edema. Please refer to separate head CT. Enlarged pulmonary artery suggesting pulmonary hypertension. WSN: [id number] Ordering Physician: Janusz Wellington Dictated By: Kailey Guerrero MD Dictated Date/Time: 08/17/22 3:57 pm Reviewed By: Kailey Guerrero MD Signed By: Kailey Guerrero MD Signed Date/Time: 08/17/22 3:57 pm Transcribed By: ROBERT Transcribed Date/Time: 08/17/22 3:12 pm CTA Head vessels W contrast IV * [facility] , CIS S: TRANSCRIBE Kailey Guerrero MD N: VERIFY Event Display: Result: Authored Date: [id number] CT Angio Head, CT Angio Neck Reason: Other:; ICH patient on coumadin with dyscojugate gaze, ataxia; Clinical Question(s): Other:; ich; Order Comment: / Other: TECHNIQUE: CT angiogram of the head and neck was performed after bolus administration of intravenous contrast. 100 mL of Omnipaque 300 was administered intravenously. Coronal and sagittal MIP reformatted images were obtained. Additional 3-D images were created on a separate workstation under concurrent supervision by the attending radiologist. All stenoses are measured using NASCET criteria. Weight-based protocol using automatic tube modulation was used to optimize exposure parameters. RADIATION DOSE PARAMETERS: CTDIvol Head: 53.23 mGy, DLP Head: 2112 mGy*cm. COMPARISON: Noncontrast CT head performed concurrently. CTA of the head and neck dated 06/30/2022. FINDINGS: CTA OF THE NECK: Arch: There is a three vessel aortic arch. There is mild atherosclerotic plaque of the aortic arch,but origins of the supra aortic vessels are patent. Right carotid system: The common carotid and cervical internal carotid arteries are patent. There is calcified atherosclerotic plaque at the carotid bifurcation, but no ICA stenosis (0%) by NASCET criteria. Left carotid system: The common carotid and cervical internal carotid arteries are patent. There iscalcified atherosclerotic plaque at the carotid bifurcation, but no ICA stenosis (0%) by NASCET criteria. There is a npebtk-zuao-onirudik vertebral artery system. Right vertebral: No significant stenosis. No evidence of dissection or aneurysm. Left vertebral: No significant stenosis. No evidence of dissection or aneurysm. Other: Soft tissues and bones: No evidence of lymphadenopathy. Prominence of the palatine tonsils is againnoted, left greater than right. Enlarged pulmonary artery could reflect pulmonary hypertension. Thethyroid is unremarkable. Visualized lungs are blurred by motion artifact, without significant superi mposed airspace opacity. No acute osseous abnormality. CTA OF THE HEAD: Anterior circulation: Bilateral intracranial ICAs demonstrate atherosclerotic calcification, without stenosis. Bilateral MAURI and MCA branches are patent. There is no significant stenosis, proximal cutoff, aneurysm, or vascular malformation. Hypoplastic right A1 segment, anatomic variant. Posterior circulation: Bilateral intracranial vertebral arteries, the basilar artery, and bilateralsuperior cerebellar and posterior cerebral branches are patent. There is no significant stenosis, proximal cutoff, aneurysm, or vascular malformation. Veins: Major dural venous sinuses are patent. Other: Soft tissues and bones: Left thalamic hemorrhage with surrounding edema. Please refer to the separate head CT. No active extravasation is demonstrated. Orbits are unremarkable. Mucous retention cysts in the left maxillary sinus and right maxillary sinus. IMPRESSION: No proximal occlusion or high grade stenosis in the major arteries of the head and neck. Left thalamic hemorrhage with surrounding edema. Please refer to separate head CT. Enlarged pulmonary artery suggesting pulmonary hypertension. WSN: [id number] Ordering Physician: Janusz Wellington Dictated By: Kailey Guerrero MD Dictated Date/Time: 08/17/22 3:57 pm Reviewed By: Kailey Guerrero MD Signed By: Kailey Guerrero MD Signed Date/Time: 08/17/22 3:57 pm Transcribed By: ROBERT Transcribed Date/Time: 08/17/22 3:[address] Head WO contrast * [facility] , CIS S: TRANSCRIBE Flor GONZALEZ, Vicki Lopez: VERIFY Event Display: Result: Authored Date: [id number] CT Head/Brain W/O Contrast INDICATION: Reason: Other:; ICH patient on coumadin with dysconjugate gaze, ataxia; Clinical Question(s): Other:; ich TECHNIQUE: Noncontrast head CT using axial technique and reconstructed in axial and coronal planes.Iterative reconstruction techniques are used to optimize dose and image quality. CTDIvol Head: 53.23 mGy, DLP Head: 2112 mGy*cm. COMPARISON: CT head 06/30/2022. FINDINGS: Clasp Machine Operator view findings, lines and tubes: None. BRAIN AND EXTRA-AXIAL SPACES: There is focal hyperdense intraparenchymal hematoma in the left thalamus, new from 06/30/2022, measuring 2.4 x 1.4 x 1.6 cm. Margins are slightly indistinct. There is surrounding edema in the left thalamus extending to the posterior limb of the internal capsule and adjacent white matter of the temporal stem. However, there is no significant mass effect, midline shift, or effacement of basal cisterns. Arreguin-white matter differentiation is well preserved without CT signs of acute ischemic infarct. Small chronic lacunar infarct is noted in the right thalamus. Chronic lacunar infarct also noted in theright cerebellum. These findings are similar to prior. Negative insular ribbon sign. Atherosclerotic vascular calcification of the carotid arteries but negative hyperdense vessel sign. Ventricles, sulci, and basilar cisterns are normal. Mild low-density white matter changes. No subarachnoid hemorrhage. No subdural or epidural collection. CALVARIUM, SKULL BASE, AND SOFT TISSUES: No fractures or suspicious bony lesions. These retention cysts in the left greater than right maxillary sinuses, without fluid levels. Remaining paranasal sinuses and mastoids are clear. Visualized orbits and globes are intact. The extracranial soft tissues are unremarkable. IMPRESSION: New 2.4 cm left thalamic hematoma with surrounding edema. This critical result was communicated to Dr. Janusz STEWART on 08/17/2022 3:23 PM and it was ascertained that the content and urgency of the report was understood at the time of direct communication. WSN: [id number] Ordering Physician: Janusz Wellington Dictated By: Vicki Ray MD Dictated Date/Time: 08/17/22 3:27 pm Reviewed By: Vicki Ray MD Signed By: Vicki Ray MD Signed Date/Time: 08/17/22 3:27 pm Transcribed By: ROBERT Transcribed Date/Time: 08/17/22 3:13 pm * BHSPsoheilascapple , CIS S: TRANSCRIBE Ashish Thomas MD: VERIFY Event Display: Result: Authored Date: [id number] CT Head/Brain W/O Contrast INDICATION: Reason: Other:; IPH, f u scan, 9 PM; Clinical Question(s): Hematoma; Order Comment: TECHNIQUE: Noncontrast head CT using axial technique and reconstructed in axial and coronal planes.Iterative reconstruction techniques are used to optimize dose and image quality. CTDIvol Head: 45.70 mGy, DLP Head: 773 mGy*cm. COMPARISON: Head CT earlier today at 2:49 PM FINDINGS: Clasp Machine Operator view findings, lines and tubes: None. BRAIN AND EXTRA-AXIAL SPACES: Redemonstration of a 2.2 cm maximal dimension intraparenchymal hematoma centered within the left lateral thalamus which is not significantly changed. There is mild edema extending into the posterior limb of the left internal capsule unchanged. There is no associated mass effect or midline shift. No intraventricular extension. No new focus of hemorrhage. Arreguin-white matter differentiation is well preserved without CT signs of acute ischemic infarct. Small chronic lacunar infarct is noted in the right thalamus. Chronic lacunar infarct also noted in theright cerebellum. These findings are similar to prior. Negative insular ribbon sign. Atherosclerotic vascular calcification of the carotid arteries but negative hyperdense vessel sign. Ventricles, sulci, and basilar cisterns are normal. Mild low-density white matter changes. No subarachnoid hemorrhage. No subdural or epidural collection. CALVARIUM, SKULL BASE, AND SOFT TISSUES: No fractures or suspicious bony lesions. These retention cysts in the left greater than right maxillary sinuses, without fluid levels. Remaining paranasal sinuses and mastoids are clear. Visualized orbits and globes are intact. The extracranial soft tissues are unremarkable. IMPRESSION: Stable 2.2 cm intraparenchymal hematoma within the left lateral thalamus. No significant mass effect or edema. No new area of hemorrhage. WSN: [id number] Ordering Physician: Angie Carlton Dictated By: Ashish Thomas MD Dictated Date/Time: 08/17/22 10:42 p Reviewed By: Ashish Thomas MD Signed By: Ashish Thomas MD Signed Date/Time: 08/17/22 10:42 pm Transcribed By: ROBERT Transcribed Date/Time: 08/17/22 10:40 pm Radiology * [facility]SPowerscribe , CIS S: TRANSCRIBE Juana Bennett MD: VERIFY Janette Pimentel DO: SIGN Event Display: Result: Authored Date: Exam: NM Cardiac Planar and SPECT History: Cardiac amyloidosis. Technique: Planar imaging with 99mTc-PYP was performed with a dual head TaodangpuA SPECT/CT camera equipped with low-energy, high-resolution collimators. The patient received 24.6 mCi of 99mTc-PYP intravenously, and anterior, lateral, and left anterior oblique planar views were obtained at 1 hour over 8 minutes duration. The planar images were acquired with the heart centered in the field of view.A circular MANSOOR was drawn over the heart, copied, and mirrored over the contralateral chest to normalize for the spillover from the ribs. Mean total and absolute counts were measured correcting for background counts, and the fraction of mean counts in the heart WVP-sp-qlrzjjnvzsoyu chest MANSOOR was calc ulated as the rbnyx-lj-xbyphorfwvcgu (H/CL) ratio. The single-photon positive emission computed tomography (SPECT) coupled with CT imaging was performed. Comparison studies: CTA chest 04/05/2022, CT abdomen/pelvis 06/30/2022, MRI cardiac 09/08/2022 FINDINGS: The H/CL was calculated to be 1.3. A ratio greater than 1.5 is considered positive for transthyretin-related amyloid deposition. SPECT-CT of the heart demonstrated no significant myocardial uptake. Additional CT findings: Mild cardiomegaly. Stable partially calcified pulmonary nodule measuring 1.4 cm in the lingula abutting the left major fissure (series 1 image 46) with similar appearance since CTA chest of 10/25/2021. Finding likely represents a partially calcified granuloma. Status-post cholecystectomy. IMPRESSION: 1. No evidence of transthyretin-related cardiac amyloidosis; amyloid light-chain cardiac amyloidosis cannot be excluded. 2. No significant incidental findings. I have personally reviewed the images and I agree with this report. 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 [employer] called as pt becamse lightheaded and passed out, denies hitting his head. POC glucose was not checked but pt was given OJx2 by [employer]; Reason: Shortness of Breath; Clinical Question(s): CHF COMPARISON: 05/13/2022 FINDINGS: No acute cardiopulmonary process IMPRESSION: No acute abnormality. Normal exam WSN: [id number] Ordering Physician: Brandon Moore Dictated By: Juancarlos Mota MD Dictated Date/Time: 08/16/22 9:46 am Reviewed By: Juancarlos Mota MD Signed By: Juancarlos Mota MD Signed Date/Time: 08/16/22 9:46 am Transcribed By: ROBERT Transcribed Date/Time: 08/16/22 9:45 am Patient Care team information Care Team Personnel Name: Rylie Dodson Position: [facility] RN Member Role: Primary Care Nurse Name: Oziel Tapia RN Position: [facility] RN Member Role: Primary Care Nurse Name: Aria Patel RN Position: [facility] AMB Nurse Member Role: Primary Care Nurse Name: Summer Donis Position: [facility] RN Member Role: Primary Care Nurse Name: Albert Hernandez RN Position: [facility] RN Member Role: Primary Care Nurse Name: Yaneth Gray RN Position: [facility] SN RN Member Role: Primary Care Nurse Name: Sagrario Eden Position: [facility] RN Member Role: Primary Care Nurse Name: Brandin Valdez MD Position: [facility] Physician - Primary Care Member Role: PCP Address: Address: [address] [place] [id number] [place] Name: Taras Yuen RN Position: [facility] RN Member Role: Primary Care Nurse Name: Maricarmen Meraz RN Position: [facility] RN Member Role: Primary Care Nurse Name: Aditi Clifton RN Position: [facility] RN Member Role: Primary Care Nurse Name: Mary Fisher Position: [facility] RN Member Role: Primary Care Nurse Name: Andres Carrero RN Position: [facility] RN Member Role: Primary Care Nurse Name: Fatemeh Saldaña PharmD Position: [facility] Associate Professional Member Role: Lifetime Consulting Provider Address: Address: [address] [place] [id number]- [place] Name: Fatemeh Hernandez Position: [facility] Outreach Member Role: Lifetime Consulting Physician Name: Katt Márquez RN Position: [facility] RN Member Role: Primary Care Nurse Name: Nabeel Agarwal MD Position: [facility] Renal MD Member Role: Lifetime Consulting Physician Address: Address: [address] [facility] [address] [facility] [place] [address]- [place] Name: Michaela Funes RN Position: [facility] RN Member Role: Primary Care Nurse Name: Susy Jose RN Position: [facility] RN Member Role: Primary Care Nurse Name: Brandon Stevens MD Position: [facility] Renal MD Member Role: Lifetime Consulting Physician Address: Address: [address] [place] [address] [facility] [address] Name: Arabella Mcghee Position: [facility] Outreach Member Role: Lifetime Consulting Physician Name: Tangela Segovia LPN Position: [facility] RN Member Role: Primary Care Nurse Name: Silvia VALENTIN Attending Position: [facility] ED Medicine Name: Arabella Juarez Position: [facility] ED TA [facility] Member Role: Head Tennis Coach Care Team Related Persons Name: DANYELL TAMAYO Address: [address] [place] [address] Name: CHATO PARKS Address: home [address] [place] [address]
--- OUTSIDE RECORDS SUMMARY | 2023-02-07 20:13 | XMS_ITS | Continuity of Care Document ---
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 Name Role Phone Brandin Valdez MD Primary Care Physician Encounter [facility] Date(s): 02/26/22 - 03/28/[address] [address] Attending Physician: Angel Lusi Evans Admitting Physician: AdmtrAngel Luis Referring Physician: [...] inactivated 01/30/22 Not Given Patient Refuses Medications atorvastatin 40 mg oral tablet 1 tablet = 40 mg, By Mouth, Daily, 0 Refills, Maintenance, 12/27/21 8:23:00 EDT, Tablet, ; Start Date: 12/27/21 Status: Ordered Blood Pressure Monitor See Instructions, # 1 each, Maintenance, check blood pressure 3 times a week or anytime when you don't feel well. keep a log book, 01/30/22 9:09:00 EDT, Supply, 168, cm, 01/30/22 8:31:00 EDT, Height,120.6, kg, 01/28/22 22:41:00 EDT, Dry Weight Start Date: 01/30/22 Status: Ordered Daily Vin oral tablet 1 tablet, By Mouth, Daily, Maintenance, 02/20/22 12:52:00 EST, Tablet, ; Start Date: 02/20/22 Status: Ordered escitalopram 10 mg oral tablet 1 tablet = 10 mg, By Mouth, Daily, 0 Refills, Maintenance, 12/27/21 8:22:00 EDT, Tablet, ; Start Date: 12/27/21 Status: Ordered fluticasone 50 mcg/inh nasal spray 1 sprays, Nares, Both, Daily, PRN Sinus Symptoms, 0 Refills, Maintenance, 01/29/22 0:10:00 EDT, [place], ; Start Date: 01/29/22 Status: Ordered hydrOXYzine hydrochloride 25 mg oral [...] 02/18/22 7:13:00 EST, Route to Pharmacy Electronically, [facility], Partial fill upon patient [...] adjusted as recommended by anticoagulation clinic, # 90 tablet, 0 Refills, Maintenance, 02/23/22 9:14:00 EST, Tablet, Partial fill upon patient request ifthe prescription is for a schedule II opioid drug. Start Date: 02/23/22 Stop Date: 03/25/22 Status: Ordered warfarin 5 mg oral tablet See Instructions, Take 1 to 2 and 1/2 tablets by mouth daily as directed by the [facility], # 90 tablet, 4 Refills, Maintenance, 03/02/22 15:10:00 EST, Tablet, [id number], Partial fill upon patient request if the prescription is for a jo... Start Date: 03/02/22 Status: Ordered Problem List Condition Confirmation Course Effective Dates Status Health St atus Informant Severe obesity Confirmed Active Tubular adenoma of colon 1 Confirmed 01/18/22 Active 1repeat screening colonoscopy in 2028 Social History Social History Type Response Smoking Status Never (less than 100 in lifetime) entered on: 02/14/22 Sex Patient Care team information Care Team Personnel Name: Oziel Tapia RN Position: [facility] RN Member Role: Primary Care Nurse Name: Aria Patel RN Position: [facility] [place] Nurse Member Role: Primary Care Nurse Name: Summer Donis Position: [facility] RN Member Role: Primary Care Nurse Name: Yaneth Gray RN Position: [facility] RN Member Role: Primary Care Nurse Name: Sagrario Eden Position: [facility] RN Member Role: Primary Care Nurse Name: Brandin Valdez MD Position: [facility] Physician (General Medicine) Member Role: PCP Address: Address: [address] [place] [address] Name: Taras Yuen RN Position: [facility] RN Member Role: Primary Care Nurse Name: Lashaun Baeza RN Position: [facility] RN Member Role: Primary Care Nurse Name: Aditi Clifton RN Position: [facility] RN Member Role: Primary Care Nurse Name: Fatemeh Saldaña PharmD Position: [facility] Associate Professional Member Role: Lifetime Consulting Provider Address: Address: [address] [place] [address] [place] [address]- [place] Name: Fatemeh Hernandez Position: [facility] Outreach Member Role: Lifetime Consulting Physician Name: Nabeel Agarwal MD Position: [facility] Renal MD Member Role: Lifetime Consulting Physician Address: Address: [address] [facility] [address] [facility] [place] [address]- Name: Michaela Funes RN Position: [facility] RN Member Role: Primary Care Nurse Name: Arabella Mcghee Position: [facility] Outreach Member Role: Lifetime Consulting Physician Name: Tangela Segovia LPN Position: [facility] RN Member Role: Primary Care Nurse Care Team Related Persons Name: HANS TAMAYO Address: [address] [place] [address] Name: CHATO PARKS Address: [address] [place] [address]
--- OUTSIDE RECORDS SUMMARY | 2023-02-07 20:13 | XMS_ITS | Continuity of Care Document ---
Author Name Unknown Organization [facility] ter Address [address] [place] [id number]- Care Team Providers Care Reel Man Name Role Phone Brandin Valdez MD Primary Care Physician [phone] [place] [facility] [place]): [place] - 02/06/[address] [id number]- Discharge Disposition: A-D/C Home Attending Physician: Colleen Newell DO Admitting Physician: Colleen Newell DO Referring Physician: Not on Staff, Referring [...] 09/24/22 16:47:00 EDT, Route to Pharmacy Electronically, [facility], Partial fill upon patient request if the prescription is for a schedule II opioi... Start Date: 09/24/22 Status: Ordered atorvastatin 10 mg oral tablet 1 tablet = 10 mg, By Mouth, Daily, # 30 tablet, 0 Refills, Maintenance, 09/24/22 14:23:00 EDT, Tablet, [facility], Partial fill upon patient request if the prescription is for a schedule II opioid drug., 170.7, cm, 09/23/22 22:36:00 EDT,... Start Date: 09/24/22 Status: Ordered brimonidine 0.2% ophthalmic solution See Instructions, 1 drops Every 8 hours to right eye, # 15 mL, 0 Refills, Maintenance, 09/24/22 14:22:00 EDT, Ophth Solution, [facility], Partial fill upon patient request if the prescription is for a schedule II opioid drug., 1 drops Ev... Start Date: 09/24/22 Status: Ordered carvedilol 3.125 mg oral tablet 3.125 mg, 1, tablet, By Mouth, 2 times a day, # 60 tablet, Refills 0, Tot. Refills 0, Maintenance, 09/24/22 14:22:00 EDT, Route to Pharmacy Electronically, [facility], Partial fill uponpatient request if the prescription is for a schedu... Start Date: 09/24/22 Status: Ordered duloxetine 30 mg oral enteric coated capsule 1 capsule = 30 mg, By Mouth, 2 times a day, # 60 capsule, 0 Refills, Maintenance, 09/24/22 16:47:00EDT, Capsule, [facility], Partial fill upon patient request if the prescription is for a schedule II opioid drug., 170.7, cm, 09/23/22 22... Start Date: 09/24/22 Status: Ordered Entresto 24 mg-26 mg oral tablet 1 tablet, By Mouth, 2 times a day, # 60 tablet, 0 Refills, Maintenance, 09/24/22 14:23:00 EDT, Tablet, [facility], Partial fill upon patient request if the prescription is for a schedule II opioid drug., 1 tablet By Mouth 2 times a day,... Start Date: 09/24/22 Status: Ordered escitalopram 10 mg oral tablet 2 tablet = 20 mg, By Mouth, Daily, # 60 tablet, 0 Refills, Maintenance, 09/24/22 16:46:00 EDT, Tablet, [facility], Partial fill upon patient request if the prescription is for a schedule II opioid drug., 170.7, cm, 09/23/22 22:36:00 EDT,... Start Date: 09/24/22 Status: Ordered LORazepam 0.5 mg oral tablet 1 tablet = 0.5 mg, By Mouth, Daily at bedtime, PRN as needed for anxiety, (filled 10/13/22 14 tabs still has some), Maintenance, 02/20/22 12:54:00 EST, Tablet, ; Start Date: 02/20/22 Status: Ordered metFORMIN 1000 mg oral tablet 1 tablet = 1,000 mg, By Mouth, Daily before breakfast, # 30 tablet, 0 Refills, Maintenance, 09/24/22 16:46:00 EDT, Tablet, [facility], Partial fill upon patient request if the prescription is for a schedule II opioid drug., 170.7, cm, 06... Start Date: 09/24/22 Status: Ordered midodrine 5 mg oral tablet 5 mg, 1, tablet, By Mouth, 3 times a day, # 90 tablet, Refills 0, Tot. Refills 0, Maintenance, 09/24/22 14:23:00 EDT, Route to Pharmacy Electronically, [facility], Partial fill upon patient request if the prescription is for a schedule I... Start Date: 09/24/22 Status: Ordered topiramate 100 mg oral tablet 1 tablet = 100 mg, By Mouth, 2 times a day, # 60 tablet, 0 Refills, Maintenance, 09/24/22 16:46:00 [facility] upon patient request if [...] 1 Refills, Maintenance, 07/23/22 11:24:00 EDT, Tablet, [facility]acy #[id number], Partial fill upon patient request if the prescription is for a schedule I... Start Date: 07/23/22 Status: Ordered warfarin 5 mg oral tablet 2-3 tablets, By Mouth, Daily, TAKE 2 TO 3 TABLETS PO DAILY DIRECTED BY [facility], # 90 tablet, 9 Refills, Maintenance, 09/25/22 11:40:00 [facility] fill upon patient request if the prescription is for a schedule II... Start Date: 09/25/22 Status: Ordered warfarin 5 mg oral tablet See Instructions, Take 1 to 2 and 1/2 tablets by mouth daily as directed by the [facility], # 30 tablet, 4 Refills, Maintenance, 04/20/22 15:25:00 EST, Tablet, [facility], Partial fill upon patient request if the prescription is for... Start Date: 04/20/22 Status: Ordered warfarin 5 mg oral tablet See Instructions, take 2-3 tabs by mouth daily as directed by the coumadinc clinic, # 270 tablet, 2Refills, Maintenance, 10/25/22 10:01:00 EDT, [facility]/pharmacy #[id number], Partial fill upon patient request if the prescription is for a schedule II opioid drug... Start Date: 10/25/22 Status: Ordered Problem List Condition Confirmation Course Effective Dates Status Health [facility] Informant COVID-19 1 Confirmed 05/11/22 Active Obese class I Confirmed Active Tubular adenoma of colon 2 Confirmed 01/18/22 Active 1Problem added by Discern Expert 2repeat screening colonoscopy in 2028 Vital Signs Most recent to oldest [Reference Range]: 1 2 3 Oxygen Saturation [94-100 %] 97 % (02/06/23 3:53 PM) 100 % (02/06/23 2:58 PM) 100 % (02/06/23 12:47 PM) Pulse Rate [55-90 bpm] 85 bpm (02/06/23 3:53 PM) 81 bpm (02/06/23 2:58 PM) 72 bpm (02/06/23 12:47 PM) Blood Pressure [90-138/55-84 mm Hg] 176/92mm Hg *H* (02/06/23 3:54 PM) 185/110mm Hg *H* (02/06/23 3:53 PM) 177/92mm Hg *H* (02/06/23 2:59 PM) Respiratory Rate [16-30 br/min] 18 br/min (02/06/23 3:53 PM) 18 br/min (02/06/23 2:58 PM) 18 br/min (02/06/23 12:47 PM) Temperature [96.8-100.4 DegF] 98.4 DegF (02/06/23 12:47 PM) Mode of Delivery (Oxygen) Room air (02/06/23 3:53 PM) Room air (02/06/23 2:58 PM) Room air (02/06/23 12:47 PM) Blood pressure sites Arm, left (02/06/23 3:54 PM) Arm, right (02/06/23 3:53 PM) Arm, left (02/06/23 2:59 PM) Temperature Route Oral (02/06/23 12:47 PM) Social History Social History Type Response Smoking Status Never (less than 100 in lifetime) entered on: 02/14/22 Sex Male Note * Jayla Montenegro NP: PERFORM, SIGN, VERIFY Event Display: Patient Education Handout Authored Date: [id number] * Jayla Montenegro NP: PERFORM Event Display: Patient Education Leaflets Authored Date: [id number] Established High Blood Pressure ?? [id number] Established High Blood Pressure High blood pressure (hypertension) is a long-term (chronic) disease. Often healthcare providers don???t know what causes it. But it can be caused by certain health conditions and medicines. If you have high blood pressure, you may not have any symptoms. If you do have symptoms, they may include: ??? Headache ??? Dizziness ??? Changes in your vision ??? Chest pain ??? Shortness of breath But even without symptoms, high blood pressure that???s not treated raises your risk for heart attack, heart failure, kidney disease, and stroke. High blood pressure is a serious health risk and shouldn???t be ignored. Blood pressure measurements are given as 2 numbers. Systolic blood pressure is the upper number. This is the pressure when the heart contracts. Diastolic blood pressure is the lower number. This is the pressure when the heart relaxes between beats. You will see your blood pressure readings written together. For example, a person with a systolic pressure of 118 and a diastolic pressure of 78 will have 118/78 written in the medical record. Blood pressure is classified as normal, raised (elevated) or stage 1 or stage 2 high blood pressure: ??? Normal blood pressure. Systolic of less than 120 and diastolic of less than 80 (120/80). ??? Elevated blood pressure. Systolic of 120 to 129 and diastolic less than 80. ??? Stage 1 high blood pressure. Systolic is 130 to 139 or diastolic between 80 to 89. ??? Stage 2 high blood pressure. Systolic is 140 or higher or the diastolic is 90 or higher. Home care If you have high blood pressure, follow these home care guidelines to help lower your blood pressure. If you are taking medicines for high blood pressure, these methods may reduce or end your need for medicines in the future. ??? Start a weight-loss program if you are overweight. ??? Cut back on how much salt you get in your diet. Here???s how to do this: o Don???t eat foods that have a lot of salt. These include olives, pickles, smoked meats, and salted potato chips. o Don???t add salt to your food at the table. o Use only small amounts of salt when cooking. ??? Start an exercise program. Talk with your healthcare provider about the type of exercise program that would be best for you. It doesn't have to be hard. Even brisk walking for 20 minutes 3 times a week is a good form of exercise. ??? Don???t take medicines that stimulate the heart. This includes many laib-hte-jkxvfep cold and sinus decongestant pills and sprays, as well as diet pills. Check the warnings about high blood pressure on the label. Before buying any hggb-joz-ynqhjgd medicines or supplements, always ask the pharmacist about the product's possible interaction with your high blood pressure and your high blood pressure medicines. ??? Stimulants such as amphetamine or cocaine could be deadly for someone with high blood pressure. Never takethese. ??? Limit how much caffeine you get in your diet. Switch to caffeine-free products. ??? Stopsmoking. If you are a long-time smoker, this can be hard. Talk with your healthcare provider about medicines and nicotine replacement options to help you. Also join a stop-smoking program. This makesit more likely that you will quit for good. ??? Learn how to handle stress. This is an important part of any program to lower blood pressure. Learn about relaxation methods such as meditation, yoga, or biofeedback. ??? If your provider prescribed medicines, take them exactly as directed. Missing doses may cause your blood pressure to get out of control. ??? If you miss a dose, check with your healthcare provider or pharmacist about what to do. ??? Think about buying an automatic blood pressure machine to check your blood pressure at home. Ask your provider for a recommendation. You can get one of these at most pharmacies. Using a home blood pressure monitor The [employer] advises the following guidelines for home blood pressure monitoring:??? Don't smoke or drink coffee for 30 minutes before taking your blood pressure. ??? Go to the bathroom before the test. ??? Relax for at least 5 minutes before taking the measurement. ??? Sit with your back supported (don't sit on a couch or soft chair). Keep your feet on the floor uncrossed. Place your arm on a solid flat surface (such as a table) with the upper part of the arm at heart level.Place the middle of the cuff directly above the bend of the elbow. Check the monitor's instruction manual for an illustration. ??? Take multiple readings. When you measure, take 2 to 3 readings one minute apart and record all of the results. ??? Take your blood pressure at the same time every day, or as your healthcare provider advises. ??? Record the date, time, and blood pressure reading. ??? Take the record with you to your next healthcare appointment. If your blood pressure monitor has a built-in memory, just take the monitor with you to your next appointment. ??? Call your provider if you have several high readings. Don't be frightened by one high blood pressure reading. But if you geta few high readings, check in with your healthcare provider. ?? Follow-up care You will need to see your healthcare provider regularly. This is to check your blood pressure and to make changes to your medicines. Make a follow-up appointment as directed. Bring the record of yourhome blood pressure readings to the appointment. ?? Call 911 Call 911 if you have any of these: ??? Blood pressure of 180/120 or higher and any other symptoms linked to organ damage. These include: o Unusual chest pain or shortness of breath o Weakness of an arm or leg or one side of the face oProblems speaking or seeing o Severe headache o Sudden severe pain in your belly (abdomen) or back o Extreme drowsiness, confusion, or fainting o Passing out or seizures o Severe dizziness or spinning feeling (vertigo) that doesn't go away ?? When to get medical advice Call your healthcare provider right away if any of these occur: ??? Blood pressure of 180/120 or higher, without other symptoms ??? Throbbing or rushing sound in the ears ??? Nosebleed ??? Mild or intermittent dizziness or spinning feeling (vertigo) ?? Last Reviewed Date: 2021 ?? [id number] [employer]. All rights reserved. This information is not intended as a substitute for professional medical care. Always follow your healthcare professional's instructions. ?? Patient Care team information Care Team Personnel Name: Oziel Tpaia RN Position: [facility] RN Member Role: Primary Care Nurse Name: Aria Patel RN Position: [facility] AMB Nurse Member Role: Primary Care Nurse Name: Summer Donis Position: [facility] RN Member Role: Primary Care Nurse Name: Hanna Cherry MA Position: [facility] Outreach Member Role: Lifetime Consulting Physician Name: Yaneth Gray RN Position: [facility] SN RN Member Role: Primary Care Nurse Name: Sagrario Eden Position: [facility] RN Member Role: Primary Care Nurse Name: Brandin Valdez MD Position: [facility] Physician - Primary Care Member Role: PCP Address: Address: [address] [place] [phone]- Name: Taras Yuen RN Position: [facility] RN Member Role: Primary Care Nurse Name: Aditi Clifton RN Position: [facility] RN Member Role: Primary Care Nurse Name: Mary Fisher Position: [facility] RN Member Role: Primary Care Nurse Name: Fatemeh Saldaña PharmD Position: [facility] Associate Professional Member Role: Lifetime Consulting Provider Address: Address: [address] [place] [address]- Name: Fatemeh Hernandez Position: [facility] Outreach Member Role: Lifetime Consulting Physician Name: Katt Márquez RN Position: [facility] RN Member Role: Primary Care Nurse Name: Nabeel Agarwal MD Position: [facility] Renal MD Member Role: Lifetime Consulting Physician Address: Address: [address] [facility], [place] [address]- Name: Michaela Funes RN Position: [facility] RN Member Role: Primary Care Nurse Name: Susy Jose RN Position: [facility] RN Member Role: Primary Care Nurse Name: Brandon Stevens MD Position: [facility] Renal MD Member Role: Lifetime Consulting Physician Address: Address: [address] [place] [address] [facility] [place] [address]- Name: Arabella Mcghee Position: [facility] Outreach Member Role: Lifetime Consulting Physician Name: Tangela Segovia LPN Position: [facility] RN Member Role: Primary Care Nurse Name: Colleen Newell DO Position: [facility] Resident Member Role: Admitting Physician Address: Address: [address] [place] [id number]- Name: Jayla Montenegro NP Position: [facility] Associate Professional Member Role: Nurse Practitioner Address: Address: [address] [place] [address]- Name: Adam Davis RN Position: [facility] ED RN W/OE and Tasks Member Role: Patient Care Provider Name: Diana Cochran Position: [facility] ED TA [facility] Care Team Related Persons Name: HANS TAMAYO Address: home [address] [place] [address] Name: CHATO PARKS Address: home [address] [place] [address]
--- OUTSIDE RECORDS SUMMARY | 2023-02-07 20:13 | XMS_ITS | Continuity of Care Document ---
Author Name Unknown Organization [facility] Address [address] [place] [address]- Care Team Providers Care Rn Pacu Name Role Phone Brandin Valdez MD Primary Care Physician Encounter 09/25/22 - 11/22/22 [facility] [address] [place] [address]- Discharge Disposition: CLIENT NO LONGER REQUIRES SKILLED CARE Allergies, Adverse Reactions, Alerts Substance Reaction Severity [...] 09/24/22 16:47:00 EDT, Route to Pharmacy Electronically, [facility], Partial fill upon patient request if the prescription is for a schedule II opioi... Start Date: 09/24/22 Status: Ordered atorvastatin 10 mg oral tablet 1 tablet = 10 mg, By Mouth, Daily, # 30 tablet, 0 Refills, Maintenance, 09/24/22 14:23:00 EDT, Tablet, [facility], Partial fill upon patient request if the prescription is for a schedule II opioid drug., 170.7, cm, 09/23/22 22:36:00 EDT,... Start Date: 09/24/22 Status: Ordered brimonidine 0.2% ophthalmic solution See Instructions, 1 drops Every 8 hours to right eye, # 15 mL, 0 Refills, Maintenance, 09/24/22 14:22:00 EDT, Ophth Solution, [facility], Partial fill upon patient request if the prescription is for a schedule II opioid drug., 1 drops Ev... Start Date: 09/24/22 Status: Ordered carvedilol 3.125 mg oral tablet 3.125 mg, 1, tablet, By Mouth, 2 times a day, # 60 tablet, Refills 0, Tot. Refills 0, Maintenance, 09/24/22 14:22:00 EDT, Route to Pharmacy Electronically, [facility], Partial fill uponpatient request if the prescription is for a schedu... Start Date: 09/24/22 Status: Ordered duloxetine 30 mg oral enteric coated capsule 1 capsule = 30 mg, By Mouth, 2 times a day, # 60 capsule, 0 Refills, Maintenance, 09/24/22 16:47:00EDT, Capsule, [facility], Partial fill upon patient request if the prescription is for a schedule II opioid drug., 170.7, cm, 09/23/22 22... Start Date: 09/24/22 Status: Ordered Entresto 24 mg-26 mg oral tablet 1 tablet, By Mouth, 2 times a day, # 60 tablet, 0 Refills, Maintenance, 09/24/22 14:23:00 EDT, Tablet, [facility], Partial fill upon patient request if the prescription is for a schedule II opioid drug., 1 tablet By Mouth 2 times a day,... Start Date: 09/24/22 Status: Ordered escitalopram 10 mg oral tablet 2 tablet = 20 mg, By Mouth, Daily, # 60 tablet, 0 Refills, Maintenance, 09/24/22 16:46:00 EDT, Tablet, [facility], Partial fill upon patient request if [...] 0 Refills, Maintenance, 09/24/22 16:46:00 EDT, Tablet, [facility], Partial fill upon patient request if the prescription is for a schedule II opioid drug., 170.7, cm, 06... Start Date: 09/24/22 Status: Ordered midodrine 5 mg oral tablet 5 mg, 1, tablet, By Mouth, 3 times a day, # 90 tablet, Refills 0, Tot. Refills 0, Maintenance, 09/24/22 14:23:00 EDT, Route to Pharmacy Electronically, [facility], Partial fill upon patient request if the prescription is for a schedule I... Start Date: 09/24/22 Status: Ordered topiramate 100 mg oral tablet 1 tablet = 100 mg, By Mouth, 2 times a day, # 60 tablet, 0 Refills, Maintenance, 09/24/22 16:46:00 EDT, Tablet, [facility], Partial fill upon patient request if [...] 1 Refills, Maintenance, 07/23/22 11:24:00 EDT, Tablet, [facility]/pharmacy #[id number], Partial fill upon patient request if the prescription is for a schedule I... Start Date: 07/23/22 Status: Ordered warfarin 5 mg oral tablet 2-3 tablets, By Mouth, Daily, TAKE 2 TO 3 TABLETS PO DAILY DIRECTED BY [facility], # 90 tablet, 9 Refills, Maintenance, 09/25/22 11:40:00 EDT, [facility], Partial fill upon patient request if the prescription is for a schedule II... Start Date: 09/25/22 Status: Ordered warfarin 5 mg oral tablet See Instructions, Take 1 to 2 and 1/2 tablets by mouth daily as directed by the [facility], # 30 tablet, 4 Refills, Maintenance, 04/20/22 15:25:00 EST, Tablet, [facility], Partial fill upon patient request if the prescription is for... Start Date: 04/20/22 Status: Ordered warfarin 5 mg oral tablet See Instructions, take 2-3 tabs by mouth daily as directed by the coumadinc clinic, # 270 tablet, 2Refills, Maintenance, 10/25/22 10:01:00 EDT, [facility]/pharmacy #[id number], Partial fill upon patient request if the prescription is for a schedule II opioid drug... Start Date: 10/25/22 Status: Ordered Problem List Condition Confirmation Course Effective Dates Status Health [facility] Informant COVID-19 1 Confirmed 05/11/22 Active Obese class I Confirmed Active Tubular adenoma of colon 2 Confirmed 01/18/22 Active 1Problem added by Discern Expert 2repeat screening colonoscopy in 2028 Social History Social History Type Response Smoking Status Never (less than 100 in lifetime) entered on: 02/14/22 Sex Patient Care team information Care Team Personnel Name: Oziel Tapia RN Position: [facility] RN Member Role: Primary Care Nurse Name: Aria Patel RN Position: [facility] AMB Nurse Member Role: Primary Care Nurse Name: Summer Donis Position: [facility] RN Member Role: Primary Care Nurse Name: Albert Hernandez RN Position: [facility] RN Member Role: Primary Care Nurse Name: Yaneth Gray RN Position: [facility] RN Member Role: Primary Care Nurse Name: Sagrario Eden Position: [facility] RN Member Role: Primary Care Nurse Name: Brandin Valdez MD Position: [facility] Physician - Primary Care Member Role: PCP Address: Address: [address] [place] [address]- Name: Taras Yuen RN Position: [facility] RN Member Role: Primary Care Nurse Name: Aditi Clifton RN Position: [facility] RN Member Role: Primary Care Nurse Name: Mary Fisher Position: S RN Member Role: Primary Care Nurse Name: Fatemeh Saldaña PharmD Position: [facility] Associate Professional Member Role: Lifetime Consulting Provider Address: Address: [address] [place] [address]- Name: Fatemeh Hernandez Position: [facility] Outreach Member Role: Lifetime Consulting Physician Name: Katt Márquez RN Position: [facility] RN Member Role: Primary Care Nurse Name: Nabeel Agarwal MD Position: [facility] Renal MD Member Role: Lifetime Consulting Physician Address: Address: [address] [place] [address] [address] [facility] [place] [address]- Name: Michaela Funes RN Position: [facility] RN Member Role: Primary Care Nurse Name: Susy Jose RN Position: [facility] RN Member Role: Primary Care Nurse Name: Brandon Stevens MD Position: [facility] Renal MD Member Role: Lifetime Consulting Physician Address: Address: [address] [facility] [place] [address]- Name: Arabella Mcghee Position: [facility] Outreach Member Role: Lifetime Consulting Physician Name: Tangela Segovia LPN Position: [facility] RN Member Role: Primary Care Nurse Care Team Related Persons Name: HANS TAMAYO Address: [address] [place] [address] Name: CHATO PARKS Address: [address] [place] [address]
--- OUTSIDE RECORDS SUMMARY | 2023-02-07 20:13 | XMS_ITS | Continuity of Care Document ---
Author Name Unknown Organization [facility] Address [address] [address]- Care Team Providers Care Pe Electrical Engineer Name Role Phone Brandin Valdez MD Primary Care Physician [phone] Encounter [facility] Date(s): 06/12/19 - 06/22/19 [facility] [address] [address]- [facility] Attending Physician: Admtr, Ar8 Admitting Physician: Admtr, Ar8 Referring Physician: Admtr, Ar8 Allergies, Adverse Reactions, Alerts Substance Reaction Severity Status NKA Active
--- OUTSIDE RECORDS SUMMARY | 2023-02-07 20:13 | XMS_ITS | Continuity of Care Document ---
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 Role Phone Brandin Valdez MD Primary Care Physician [place] [facility] [place] Date(s): 04/10/22 - 05/10/22 [facility] [address] [place] [id number] Allergies, Adverse Reactions, Alerts Substance Reaction Severity [...] 02/18/22 7:13:00 EST, Route to Pharmacy Electronically, [facility], Partial fill upon patient request if [...] 0 Refills, Maintenance, 04/20/22 15:26:00 EST, Tablet, [facility], Partial fill upon patient request if the prescription is for... Start Date: 04/20/22 Stop Date: 05/20/22 Status: Ordered warfarin 5 mg oral tablet See Instructions, Take 1 to 2.5 tablets by mouth daily as directed by the [facility], # 225 tablet, 1 Refills, Maintenance, 04/13/22 17:25:00 EST, Tablet, [facility]/pharmacy #[id number], Partial fill upon patient request if the prescription is for a schedule... Start Date: 04/13/22 Status: Ordered warfarin 5 mg oral tablet See Instructions, Take 1 to 2 and 1/2 tablets by mouth daily as directed by the [facility], # 30 tablet, 4 Refills, Maintenance, 04/20/22 15:25:00 EST, Tablet, [facility], Partial fill upon patient request if the prescription is for... Start Date: 04/20/22 Status: Ordered Problem List Condition Confirmation Course Effective Dates Status Health [facility] Informant Obese class II Confirmed Active Tubular adenoma of colon 1 Confirmed 01/18/22 Active 1repeat screening colonoscopy in 2028 Social History Social History Type Response Smoking Status Never (less than 100 in lifetime) entered on: 02/14/22 Sex Patient Care team information Care Team Personnel Name: Oziel Tapia RN Position: [facility] RN Member Role: Primary Care Nurse Name: Aria Patel RN Position: [facility] AMB Nurse Member Role: Primary Care Nurse Name: Summer Donis Position: [facility] RN Member Role: Primary Care Nurse Name: Yaneth Gray RN Position: [facility] RN Member Role: Primary Care Nurse Name: Sagrario Eden Position: [facility] RN Member Role: Primary Care Nurse Name: Brandin Valdez MD Position: [facility] Physician (General Medicine) Member Role: PCP Address: Address: [address] [place] [address] Name: Taras Yuen RN Position: [facility] RN Member Role: Primary Care Nurse Name: Aditi Clifton RN Position: [facility] RN Member Role: Primary Care Nurse Name: Fatemeh Saldaña PharmD Position: [facility] Associate Professional Member Role: Lifetime Consulting Provider Address: Address: [address] [place] [address] [place] [address]- [place] Name: Fatemeh Hernandez Position: S Outreach Member Role: Lifetime Consulting Physician Name: Katt Márquez RN Position: S RN Member Role: Primary Care Nurse Name: Nabeel Agarwal MD Position: [facility] Renal MD Member Role: Lifetime Consulting Physician Address: Address: [address] [facility] [address] [facility] [place] [address]- Name: Michaela Funes RN Position: S RN Member Role: Primary Care Nurse Name: Arabella Mcghee Position: S Outreach Member Role: Lifetime Consulting Physician Name: Tangela Segovia LPN Position: S RN Member Role: Primary Care Nurse Care Team Related Persons Name: HANS TAMAYO Address: home [address] [place] [address] Name: CHATO PARKS Address: home [address] [place] [address]
--- OUTSIDE RECORDS SUMMARY | 2023-02-07 20:13 | XMS_ITS | Continuity of Care Document ---
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 Role Phone Brandin Valdez MD Primary Care Physician [place] [facility] [place]22 - 05/24/22 [facility] [address] [place], [place] [id number]- [place] Allergies, Adverse Reactions, Alerts Substance Reaction Severity [...] 2 Refills, Maintenance, 04/10/22 10:00:00 EST, Tablet, [facility]/pharmacy #[id number], Partial fill upon patient request [...] 02/18/22 7:13:00 EST, Route to Pharmacy Electronically, [facility], Partial fill upon patient [...] 0 Refills, Maintenance, 04/20/22 15:26:00 EST, Tablet, [facility], Partial fill upon patient request if the prescription is for... Start Date: 04/20/22 Stop Date: 05/20/22 Status: Ordered warfarin 5 mg oral tablet See Instructions, Take 1 to 2.5 tablets by mouth daily as directed by the [facility], # 225 tablet, 1 Refills, Maintenance, 04/13/22 17:25:00 EST, Tablet, [facility]/pharmacy #[id number], Partial fill upon patient request if the prescription is for a schedule... Start Date: 04/13/22 Status: Ordered warfarin 5 mg oral tablet See Instructions, Take 1 to 2 and 1/2 tablets by mouth daily as directed by the [facility], # 30 tablet, 4 Refills, Maintenance, 04/20/22 15:25:00 EST, Tablet, [facility], Partial fill upon patient [...] Name: Oziel Tapia RN Position: [facility] RN Member Role: Primary Care Nurse Name: Aria Patel RN Position: [facility] Nurse Member Role: Primary Care Nurse Name: Summer Donis Position: [facility] RN Member Role: Primary Care Nurse Name: Yaneth Gray RN Position: [facility] RN Member Role: Primary Care Nurse Name: Sagrario Eden Position: [facility] RN Member Role: Primary Care Nurse Name: Brandin Valdez MD Position: [facility] Physician (General Medicine) Member Role: PCP Address: Address: [address] [place] [address]- Name: Taras Yuen RN Position: [facility] RN Member Role: Primary Care Nurse Name: Aditi Clifton RN Position: [facility] RN Member Role: Primary Care Nurse Name: Fatemeh Saldaña PharmD Position: [facility] Associate Professional Member Role: Lifetime Consulting Provider Address: Address: [address] [place] [address] [place] [address]- [place] Name: Bianka Hernandezher Position: S Outreach Member Role: Lifetime Consulting Physician Name: Katt Márquez RN Position: S RN Member Role: Primary Care Nurse Name: Nabeel Agarwal MD Position: [facility] Renal MD Member Role: Lifetime Consulting Physician Address: Address: [address] [place] [address] [address] [facility] [place] [address]- [place] Name: Michaela Funes RN Position: S RN Member Role: Primary Care Nurse Name: Arabella Mcghee Position: S Outreach Member Role: Lifetime Consulting Physician Name: Tangela Segovia LPN Position: S RN Member Role: Primary Care Nurse Care Team Related Persons Name: HANS TAMAYO Address: [address] [place] [address] Name: CHATO PARKS Address: [address] [place] [address]
--- OUTSIDE RECORDS SUMMARY | 2023-02-07 20:13 | XMS_ITS | Continuity of Care Document ---
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 Name Role Phone Brandin Valdez MD Primary Care Physician Encounter [facility] [place] Date(s): 04/26/22 - 05/03/22 [facility] [address], [address], [address] [place] [id number] Attending Physician: Lisa GONZALEZ, Lexa Referring Physician: Brandin Valdez MD Allergies, Adverse [...] 02/18/22 7:13:00 EST, Route to Pharmacy Electronically, [facility], Partial fill upon patient [...] 0 Refills, Maintenance, 04/20/22 15:26:00 EST, Tablet, [facility], Partial fill upon patient request if the prescription is for... Start Date: 04/20/22 Stop Date: 05/20/22 Status: Ordered warfarin 5 mg oral tablet See Instructions, Take 1 to 2.5 tablets by mouth daily as directed by [facility], # 225 tablet, 1 Refills, Maintenance, 04/13/22 17:25:00 EST, Tablet, [facility]/pharmacy #[id number], Partial fill upon patient request if the prescription is for a schedule... Start Date: 04/13/22 Status: Ordered warfarin 5 mg oral tablet See Instructions, Take 1 to 2 and 1/2 tablets by mouth daily as directed by the [facility], # 30 tablet, 4 Refills, Maintenance, 04/20/22 15:25:00 EST, Tablet, [facility], Partial fill upon patient [...] Team Personnel Name: Oziel Tapia RN Position: [facility] RN Member Role: Primary Care Nurse Name: Aria Patel RN Position: [facility] AMB Nurse Member Role: Primary Care Nurse Name: Summer Donis Position: [facility] RN Member Role: Primary Care Nurse Name: Yaneth Gray RN Position: [facility] RN Member Role: Primary Care Nurse Name: Sagrario Eden Position: [facility] RN Member Role: Primary Care Nurse Name: Brandin Valdez MD Position: [facility] Physician (General Medicine) Member Role: PCP Address: Address: [address] [place] [id number] Name: Taras Yuen RN Position: [facility] RN Member Role: Primary Care Nurse Name: Aditi Clifton RN Position: [facility] RN Member Role: Primary Care Nurse Name: Fatemeh Saldaña PharmD Position: [facility] Associate Professional Member Role: Lifetime Consulting Provider Address: Address: [address] [facility] [place] [address]- [place] Name: Fatemeh Hernandez Position: [facility] Outreach Member Role: Lifetime Consulting Physician Name: Katt Márquez RN Position: [facility] RN Member Role: Primary Care Nurse Name: Nabeel Agarwal MD Position: [facility] Renal MD Member Role: Lifetime Consulting Physician Address: Address: [address] [facility] [address] [facility] [place] [address]- Name: Michaela Funes RN Position: [facility] RN Member Role: Primary Care Nurse Name: Arabella Mcghee Position: [facility] Outreach Member Role: Lifetime Consulting Physician Name: Tangela Segovia LPN Position: [facility] RN Member Role: Primary Care Nurse Care Team Related Persons Name: RONI HANS Address: home [address] [place] [address] Name: CHATO PARKS Address: home [address] [place] [address]
--- OUTSIDE RECORDS SUMMARY | 2023-02-07 20:13 | XMS_ITS | Continuity of Care Document ---
Author Name Unknown Organization [facility] Address [address] [place] [address]- Care Team Providers Care Autopsy Pathologist Name Role Phone Brandin Valdez MD Primary Care Physician Encounter [facility] [place] Date(s): 11/03/20 - 03/03/21 [facility] [address] [place] [id number] Attending Physician: Nuvia White MD Admitting Physician: Nuvia White MD Referring Physician: Brandin Valdez MD Allergies, Adverse Reactions, Alerts Substance Reaction Severity Status NKA Active
--- OUTSIDE RECORDS SUMMARY | 2023-02-07 20:13 | XMS_ITS | Continuity of Care Document ---
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 Phone Brandin Valdez MD Primary Care Physician Encounter [facility] Date(s): 03/30/22 - 03/31/[address] [address]- Encounter Diagnosis Viral syndrome(Final) - 03/30/22 Chest pain(Final) - 03/31/22 History of pulmonary embolism(Final) - 03/31/22 Discharge Disposition: A-D/C Home Attending Physician: Dequan Looney MD Admitting Physician: Dequan Looney MD Referring Physician: Not on Staff, Referring [...] Symptoms, 0 Refills, Maintenance, 01/29/22 0:10:00 EDT, Gary, ; Start Date: 01/29/22 Status: Ordered hydrOXYzine [...] 02/18/22 7:13:00 EST, Route to Pharmacy Electronically, [facility], Partial fill upon patient [...] 01/18/22 Active 1repeat screening colonoscopy in 2028 Results Radiology Reports * Exam Date Time Procedure Performing Provider Status 03/30/22 9:[address] Angio Chest Cony Nicolas; Auth (Verified) Notes: (CT Angio Chest) Reason For Exam: PE suspected, Intermediate prob, positive D-dimer;Other: RESULT: CT Angio Chest EXAMINATION: CT Angio Chest INDICATION: Hx of Present Illness: weakness and bodyaches; Reason: Other:; PE suspected, Intermediate prob, positive D-dimer; Clinical Question(s): Pulmonary Embolism; Order Comment: TECHNIQUE: Spiral CTA of the chest was performed after rapid IV contrast administration without cardiac gating, triggered by an MANSOOR on the main pulmonary artery. Images are formatted in multiple planes using 2-D multiplanar and 3-D maximum intensity projection. 75 cc of Omnipaque 300 was administered intravenously. Weight-based protocol using automatic tube modulation was used to optimize exposure parameters. CTDIvol Body: 11.60 mGy, DLP Body: 668 mGy*cm. COMPARISONS: 01/28/2022, outside CT chest 06/26/2017. ANGIOGRAPHIC FINDINGS: Evaluation is severely limited by motion artifact. No central or lobar pulmonary embolism. Smaller emboli would not be detected on this exam. No acute aortic abnormality seen on this study performed without cardiac gating. 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 Trachea and Airways: Patent without evidence of tracheal or endobronchial lesion. Lungs and Pleura: Right chest: The lung is clear. No pleural effusion or pneumothorax. Left chest: 14 mm nodule in the lingula abutting the major fissure. It has coarse central calcification, indicating benign etiology. Otherwise lung is clear. No pleural effusion or pneumothorax. Mediastinum and christopher: No mass or hematoma. No mediastinal or hilar lymphadenopathy. No esophageal abnormality. Partially imaged thyroid is unremarkable. Heart: Moderate cardiomegaly. No pericardial effusion. Mild coronary artery calcification. Chest Wall Soft Tissues: Normal. Diaphragm and upper abdomen: No significant abnormality. Bones: No fracture thoracic spine, ribs, or sternum. IMPRESSION: CTA 1. No central or lobar pulmonary embolism. Smaller emboli would not be detected on this exam.. 2. No thoracic aortic aneurysm or dissection.. CHEST 1. No acute pulmonary, pleural, or mediastinal abnormality. 2. No fracture. I have personally reviewed the images and I agree with this report. WSN: [id number] Ordering Physician: Brii Jaeger Dictated By: Venkata[Radiology] Eneida GONZALEZ Dictated Date/Time: 03/30/22 11:24 p Reviewed By: Paolo Fernandez MD Signed By: Paolo Fernandez MD Signed Date/Time: 03/30/22 11:29 pm Transcribed By: ROBERT Transcribed Date/Time: 03/30/22 10:26 pm * Exam Date Time Procedure Performing Provider Status 03/30/22 5:10 PM Chest 2 Views Frontal and Lat Mariela Marino; Auth (Verified) Notes: (Chest 2 Views Frontal and Lat) Reason For Exam: Shortness of Breath, Fever;Other: RESULT: Chest 2 Views Frontal and Lat Chest 2 Views Frontal and Lat Hx of Present Illness: weakness and bodyaches; Reason: Other:; Shortness of Breath, Fever; ClinicalQuestion(s): Pneumonia COMPARISON: 02/20/2022 FINDINGS: LINES AND TUBES: None. LUNGS AND PLEURA: Low lung volumes without focal opacity or volume loss. No pleural effusion. No pneumothorax. HEART, MEDIASTINUM AND CHRISTOPHER: Heart is normal in size. Normal mediastinal and hilar contour. BONES AND SOFT TISSUES: No acute abnormality. IMPRESSION: No pneumonia or CHF. WSN: [id number] Ordering Physician: Elina Denny Dictated By: Ashish Thomas MD Dictated Date/Time: 03/30/22 5:22 pm Reviewed By: Ashish Thomas MD Signed By: Ashish Thomas MD Signed Date/Time: 03/30/22 5:22 pm Transcribed By: ROBERT Transcribed Date/Time: 03/30/22 5:22 pm Vital Signs Most recent to oldest [Reference Range]: 1 2 3 Oxygen Saturation [94-100 %] 98 % (03/30/22 11:40 PM) 99 % (03/30/22 8:00 PM) 98 % (03/30/22 6:20 PM) Pulse Rate [55-90 bpm] 88 bpm (03/30/22 11:40 PM) 59 bpm (03/30/22 8:00 PM) 65 bpm (03/30/22 6:20 PM) Blood Pressure [90-138/55-84 mm Hg] 176/100mm Hg *H* (03/30/22 11:40 PM) 142/95mm Hg *H* (03/30/22 8:00 PM) 149/90mm Hg *H* (03/30/22 6:20 PM) Respiratory Rate [16-30 br/min] 20 br/min (03/30/22 11:40 PM) 33 br/min *H* (03/30/22 8:00 PM) 17 br/min (03/30/22 6:20 PM) Temperature [96.8-100.4 DegF] 97.5 DegF (03/30/22 8:00 PM) 98.2 DegF (03/30/22 3:56 PM) 98.2 DegF (03/30/22 2:14 PM) Mode of Delivery (Oxygen) Room air (03/30/22 11:40 PM) Room air (03/30/22 8:00 PM) Room air (03/30/22 6:20 PM) Blood pressure sites Arm, left (03/30/22 11:40 PM) Arm, left (03/30/22 8:00 PM) Arm, left (03/30/22 6:20 PM) Temperature Route Oral (03/30/22 8:00 PM) Oral (03/30/22 3:56 PM) Oral (03/30/22 2:14 PM) Social History Social History Type Response Smoking Status Never (less than 100 in lifetime) entered on: 02/14/22 Sex EKG study * Event Display: EKG Authored Date: [id number] Note * Brii Jaeger DO: PERFORM Event Display: Patient Education Leaflets Authored Date: [id number] Viral Syndrome (Adult) ?? [id number] Viral Syndrome (Adult) A viral illness may cause many symptoms such as fever. Other symptoms depend on the part of the body that the virus affects. If it settles in your nose, throat, and lungs, it may cause cough, sore throat, congestion, runny nose, headache, earache and other ear symptoms, or shortness of breath. If it settles in your stomach and intestinal tract, it may cause nausea, vomiting, cramping, and diarrhea. Sometimes it causes generalized symptoms like aching all over, feeling tired, loss of energy, or loss of appetite. A viral illness often lasts anywhere from a few days to a few weeks. But sometimes it lasts longer.In some cases, a more serious infection can look like a viral syndrome in the first few days of theillness. You may need another exam and additional tests to know the difference. Watch for the warning signs listed below for when to get medical advice. Home care Follow these guidelines for taking care of yourself at home: ??? If symptoms are severe, rest at home for the first 2 to 3 days. ??? Stay away from cigarette smoke - both your smoke and the smoke from others. ??? You may use diew-mhf-krqaoue??acetaminophen or ibuprofen for fever, muscle aching, and headache, unless another medicine was prescribed for this. Antibiotics aren't used to treat viral infections. If you have chronic liver or kidney disease or ever had a stomach ulcer or gastrointestinal bleeding, talk with your healthcare provider before using these medicines. No one who is younger than 18 and ill with a fever should take aspirin. It may cause severe disease or . ??? Your appetite may be poor, so a light diet is fine. Prevent dehydration by drinking 8 to 12, 8-ounce glassesof fluids each day. This may include water; orange juice; lemonade; apple, grape, and cranberry juice; clear fruit drinks; electrolyte replacement and sports drinks; and decaffeinated teas and coffee. If you've been diagnosed with a kidney disease, ask your healthcare provider how much and what types of fluids you should drink to prevent dehydration. If you have kidney disease, drinking too much fluid can cause it build up in your body and be dangerous to your health. ??? Kwle-ceg-cqcqxva remedies won't shorten the length of the illness. But they may be helpful for symptoms such as cough, sore throat, nasal and sinus congestion, or diarrhea. Don't use decongestants if you have high blood pressure. ?? Follow-up care Follow up with your healthcare provider if you don't get better over the next week. ?? Call 911 Call 911 if any of these occur: ??? Convulsion ??? Feeling weak, dizzy, or like you are going to faint ??? Chest pain, or more than mild shortness of breath ?? When to get medical advice Call your healthcare provider right away if any of these occur: ??? Cough with lots of colored sputum (mucus) or blood in your sputum ??? Chest pain, shortness of breath, wheezing, or trouble breathing ??? Severe headache; face, neck, or ear pain ??? Severe, constant pain in the lower right side ofyour belly (abdominal) ??? Continued vomiting (can???t keep liquids down) ??? Frequent diarrhea (more than 5 times a day), or blood (red or black color) or mucus in diarrhea ??? Feeling weak, dizzy, or like you are going to faint ??? Extreme thirst ??? Fever of 100.4??F (38??C) or higher, or as directed by your provider ?? Last Reviewed Date: 2021 ?? [id number] [employer], [employer]. All rights reserved. This information is not intended as a substitute for professional medical care. Always follow your healthcare professional's instructions. ?? * BHPau , NIKHIL S: TRANSCRIBE Ashish Thomas MD: VERIFY Event Display: Result: Authored Date: [id number] Chest 2 Views Frontal and Lat Hx of Present Illness: weakness and bodyaches; Reason: Other:; Shortness of Breath, Fever; ClinicalQuestion(s): Pneumonia COMPARISON: 02/20/2022 FINDINGS: LINES AND TUBES: None. LUNGS AND PLEURA: Low lung volumes without focal opacity or volume loss. No pleural effusion. No pneumothorax. HEART, MEDIASTINUM AND CHRISTOPHER: Heart is normal in size. Normal mediastinal and hilar contour. BONES AND SOFT TISSUES: No acute abnormality. IMPRESSION: No pneumonia or CHF. WSN: [id number] Ordering Physician: Elina Denny Dictated By: Ashish Thomas MD Dictated Date/Time: 03/30/22 5:22 pm Reviewed By: Ashish Thomas MD Signed By: Ashish Thomas MD Signed Date/Time: 03/30/22 5:22 pm Transcribed By: ROBERT Transcribed Date/Time: 03/30/22 5:22 pm CTA Chest vessels W contrast IV * BHSPowerscribe , CIS S: TRANSCRIBE Venkata[Radiology] , Amninder: LIZZY Fernandez MD, Paolo D: VERIFY Event Display: Result: Authored Date: [id number] EXAMINATION: CT Angio Chest INDICATION: Hx of Present Illness: weakness and bodyaches; Reason: Other:; PE suspected, Intermediate prob, positive D-dimer; Clinical Question(s): Pulmonary Embolism; Order Comment: TECHNIQUE: Spiral CTA of the chest was performed after rapid IV contrast administration without cardiac gating, triggered by an MANSOOR on the main pulmonary artery. Images are formatted in multiple planes using 2-D multiplanar and 3-D maximum intensity projection. 75 cc of Omnipaque 300 was administered intravenously. Weight-based protocol using automatic tube modulation was used to optimize exposure parameters. CTDIvol Body: 11.60 mGy, DLP Body: 668 mGy*cm. COMPARISONS: 01/28/2022, outside CT chest 06/26/2017. ANGIOGRAPHIC FINDINGS: Evaluation is severely limited by motion artifact. No central or lobar pulmonary embolism. Smaller emboli would not be detected on this exam. No acute aortic abnormality seen on this study performed without cardiac gating. 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 Trachea and Airways: Patent without evidence of tracheal or endobronchial lesion. Lungs and Pleura: Right chest: The lung is clear. No pleural effusion or pneumothorax. Left chest: 14 mm nodule in the lingula abutting the major fissure. It has coarse central calcification, indicating benign etiology. Otherwise lung is clear. No pleural effusion or pneumothorax. Mediastinum and christopher: No mass or hematoma. No mediastinal or hilar lymphadenopathy. No esophageal abnormality. Partially imaged thyroid is unremarkable. Heart: Moderate cardiomegaly. No pericardial effusion. Mild coronary artery calcification. Chest Wall Soft Tissues: Normal. Diaphragm and upper abdomen: No significant abnormality. Bones: No fracture thoracic spine, ribs, or sternum. IMPRESSION: CTA 1. No central or lobar pulmonary embolism. Smaller emboli would not be detected on this exam.. 2. No thoracic aortic aneurysm or dissection.. CHEST 1. No acute pulmonary, pleural, or mediastinal abnormality. 2. No fracture. I have personally reviewed the images and I agree with this report. WSN: [id number] Ordering Physician: Brii Jaeger Dictated By: Venkata[Radiology] Eenida GONZALEZ Dictated Date/Time: 03/30/22 11:24 p Reviewed By: Paolo Fernandez MD Signed By: Paolo Fernandez MD Signed Date/Time: 03/30/22 11:29 pm Transcribed By: ROBERT Transcribed Date/Time: 03/30/22 10:26 pm Patient Care team information Care Team Personnel Name: Oziel Tapia RN Position: [facility] RN Member Role: Primary Care Nurse Name: Aria Patel RN Position: [facility] VA[place]ALI Nurse Member Role: Primary Care Nurse Name: Summer Donis Position: [facility] RN Member Role: Primary Care Nurse Name: Yaneth Gray RN Position: [facility] RN Member Role: Primary Care Nurse Name: Sagrario Eden Position: [facility] RN Member Role: Primary Care Nurse Name: Brandin Valdez MD Position: [facility] Physician (General Medicine) Member Role: PCP Address: Address: [address] [place] [address] Name: aTras Yuen RN Position: [facility] RN Member Role: Primary Care Nurse Name: Lashaun Baeza RN Position: [facility] RN Member Role: Primary Care Nurse Name: Aditi Clifton RN Position: [facility] RN Member Role: Primary Care Nurse Name: Fatemeh Saldaña PharmD Position: [facility] Associate Professional Member Role: Lifetime Consulting Provider Address: Address: [address] [facility] [place] [address]- Name: Fatemeh Hernandez Position: [facility] Outreach Member Role: Lifetime Consulting Physician Name: Nabeel Agarwal MD Position: [facility] Renal MD Member Role: Lifetime Consulting Physician Address: [facility] [facility] [address] [facility] [place] [address]- [place] Name: Michaela Funes RN Position: [facility] RN Member Role: Primary Care Nurse Name: Arabella Mcghee Position: [facility] Outreach Member Role: Lifetime Consulting Physician Name: Tangela Segovia LPN Position: [facility] RN Member Role: Primary Care Nurse Name: Dequan Looney MD Position: [facility] Resident Member Role: ED Attending Physician Address: Address: [address] [place] [address]- [place] Name: Kaur Ham RN Position: [facility] ED RN W/OE and Tasks Member Role: Patient Care Provider Name: Brii Jaeger DO Position: [facility] Resident Member Role: ED Resident Address: Address: [address] [place] [address]- Care Team Related Persons Name: HANS TAMAYO Address: home [address] [place] [address] Name: CHATO PARKS Address: home [address] [place] [address]
--- OUTSIDE RECORDS SUMMARY | 2023-02-07 20:13 | XMS_ITS | Continuity of Care Document ---
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 Refills 0, Maintenance, 02/18/22 7:13:00 EST, Route to Pharmacy Electronically, [facility], Partial fill upon patient request if the prescription is for a schedule II opioid... Start Date: 02/18/22 Status: Ordered AmLODipine Tablet 10 mg, Tablet, By Mouth, 02/18/22 9:00:00 EST Start Date: 02/18/22 Stop Date: 02/18/22 Status: Completed atorvastatin 40 mg oral tablet 1 tablet [...] carvedilol 25 mg oral tablet 25 mg, Tablet, By Mouth, 02/18/22 9:00:00 EST Start Date: 02/18/22 Stop Date: 02/18/22 Status: Completed carvedilol 25 mg oral tablet 25 mg, 1, tablet, By Mouth, 2 times a day, # 60 tablet, Refills 0, Tot. Refills 0, Maintenance, 02/18/22 7:13:00 EST, Route to Pharmacy Electronically, [facility], Partial fill upon patient request if the prescription is for a schedule I... Start Date: 02/18/22 Status: Ordered enoxaparin 120 mg/0.8 mL injectable solution 0.8 mL = 120 mg, Subcutaneous Injection, Every 12 hours, for 14 days, # 22.4 mL, 0 Refills, Acute 03/04/22 7:13:00 EST, 02/18/22 7:13:00 EST, Injection, [facility], Partial fill upon patient request if the prescription is for a schedule... Start Date: 02/18/22 Stop Date: 03/04/22 Status: Ordered escitalopram 10 mg oral tablet [...] Symptoms, 0 Refills, Maintenance, 01/29/22 0:10:00 EDT, [place], Partial fill upon patient request if the prescription is for a schedule II opioid drug. Start Date: 01/29/22 Status: Ordered furosemide 40 mg oral tablet TAKE 1 TABLET BY MOUTH EVERY DAY Start Date: 02/15/22 Status: Ordered hydrOXYzine hydrochloride 25 mg oral tablet 1 tablet = 25 mg, By Mouth, 4 times a day, PRN for anxiety, # 40 tablet, 0 Refills, Maintenance, 12/27/21 8:24:00 EDT, Tablet, Partial fill upon patient request if the prescription is for a schedule II opioid drug. Start Date: 12/27/21 Status: Ordered Imodium A-D 2 mg oral tablet 2 mg, 1, tablet, By Mouth, Every 4 hours, PRN, # 60 tablet, Refills 0, Tot. Refills 0, Acute 03/09/22 11:49:00 EST, for loose stool, 02/06/22 11:49:00 EDT, Route to Pharmacy Electronically, [id number], Partial fill upon patient request if the... Start Date: 02/06/22 Stop Date: 03/09/22 Status: Ordered Insulin Aspart FlexPen 100 units/mL injectable solution INJECT MAX OF 14 UNITS SUBCUTANEOUSLY PER SLIDING SCALE THREE TIMES A DAY Start Date: 01/01/22 Status: Ordered insulin glargine 100 units/mL subcutaneous solution = 25 units, Subcutaneous Injection, Daily, # 10 mL, 0 Refills, Maintenance, 02/18/22 7:19:00 EST, Solution, [facility], Partial fill upon patient request if the prescription is for a schedule II opioid drug., 167.64, cm, 02/14/22 23:07:0... Start Date: 02/18/22 Status: Ordered losartan 25 mg oral tablet 50 mg, Tablet, By Mouth, 02/18/22 9:00:00 EST Start Date: 02/18/22 Stop Date: 02/18/22 Status: Completed losartan 25 mg oral tablet 50 mg, 2, tablet, By Mouth, Daily, # 60 tablet, Refills 0, Tot. Refills 0, Maintenance, 02/18/22 7:13:00 EST, Route to Pharmacy Electronically, [facility], Partial fill upon patient request if the prescription is for a schedule II opioid... Start Date: 02/18/22 Status: Ordered metFORMIN 1000 mg oral tablet TAKE 1 TABLET BY MOUTH EVERY DAY WITH A MEAL Start Date: 02/15/22 Status: Ordered topiramate 50 mg oral tablet 1 tablet = 50 mg, By Mouth, 2 times a day Start Date: 01/01/22 Status: Ordered warfarin 3 mg oral tablet 2 tablet = 6 mg, By Mouth, Daily, # 60 tablet, 0 Refills, Maintenance, 02/18/22 7:12:00 EST, Tablet, [facility], Partial fill upon patient request if the prescription is for a schedule II opioid drug., 167.64, cm, 02/14/22 23:07:00 EDT,... Start Date: 02/18/22 Status: Ordered Problem List Condition Confirmation Course Effective Dates Status Health St atus Informant Severe obesity Confirmed Active Tubular adenoma of colon 1 Confirmed 01/18/22 Active 1repeat screening colonoscopy in 2028 Procedures Procedure Date Related Diagnosis Body Site Status Cholecystectomy 02/14/14 Completed Vital Signs Most recent to oldest [Reference Range]: 1 2 3 4 Height 167.64 cm (02/18/22 7:12 AM) 167.64 cm (02/14/22 11:07 PM) 167.64 cm (02/14/22 10:45 PM) Weight 116.1 kg (02/14/22 11:07 PM) Oxygen Saturation [94-100 %] 100 % (02/18/22 11:00 AM) 97 % (02/18/22 7:12 AM) 98 % (02/18/22 3:24 AM) Pulse Rate [55-90 bpm] 58 bpm (02/18/22 11:00 AM) 56 bpm (02/18/22 7:30 AM) 54 bpm *L* (02/18/22 7:12 AM) Body Mass Index [18.5-24.99 kg/m2] 41.31 kg/m2 *>HHI* (02/14/22 11:07 PM) Blood Pressure [90-138/55-84 mm Hg] 107/68mm Hg (02/18/22 11:00 AM) 132/62mm Hg (02/18/22 7:31 AM) 132/62mm Hg (02/18/22 7:30 AM) 132/62mm Hg (02/18/22 7:30 AM) Respiratory Rate [16-30 br/min] 18 br/min (02/18/22 11:00 AM) 18 br/min (02/18/22 7:12 AM) 20 br/min (02/18/22 3:24 AM) Temperature [96.8-100.4 DegF] 98.3 DegF (02/18/22 11:00 AM) 98.2 DegF (02/18/22 7:12 AM) 97.7 DegF (02/18/22 3:24 AM) Mode of Delivery (Oxygen) Room air (02/18/22 11:00 AM) Room air (02/18/22 7:12 AM) Room air (02/18/22 3:24 AM) Blood pressure sites Arm, left (02/18/22 11:00 AM) Arm, left (02/18/22 7:12 AM) Arm, right (02/18/22 3:24 AM) Temperature Route Oral (02/18/22 11:00 AM) Oral (02/18/22 7:12 AM) Temporal (02/18/22 3:24 AM) Dry Weight 116.1 kg (02/14/22 11:07 PM) 116.1 kg (02/14/22 10:45 PM) Weight Obtained Via Bed scale (02/14/22 11:07 PM) Dry Weight Obtained Via Bed scale (02/14/22 11:07 PM) Bed scale (02/14/22 10:45 PM) Social History Social History Type Response Smoking Status Never (less than 100 in lifetime) entered on: 02/14/22 Sex Patient Care team information Personnel Name: Brandin Valdez MD Address: Address: [address] [place], [place] [id number]
--- OUTSIDE RECORDS SUMMARY | 2023-02-07 20:13 | XMS_ITS | Continuity of Care Document ---
Author Name Unknown Organization [facility] Address [address] [place] [address]- Care Team Providers Care Coke Wheeler Name Role Phone Brandin Valdez MD Primary Care Physician Encounter [facility] Date(s): 02/01/21 - 03/03/21 [facility] [address] [place], [place] [address] Attending Physician: Admtr, Ar8 Admitting Physician: Admtr, Ar8 Referring Physician: Admtr, Ar8 Allergies, Adverse Reactions, Alerts Substance Reaction Severity Status NKA Active
--- OUTSIDE RECORDS SUMMARY | 2023-02-07 20:13 | XMS_ITS | Continuity of Care Document ---
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 Name Role Phone Courtney GONZALEZ, Brandin Stahl Primary Care Physician Encounter [facility] Date(s): 12/28/21 - 01/04/22 [facility] Surgery [address] [place] [id number]- Attending Physician: [place] MD Referring Physician: [...] TO BED Start Date: 01/01/22 Status: Ordered Ativan 0.5 mg oral tablet 1 tablet = 0.5 mg, By Mouth, 3 times a day, PRN Anxiety, for 7 days, # 24 tablet, 0 Refills, Acute 01/10/22 13:28:00 EDT, 01/03/22 13:28:00 EDT, Tablet, [facility], Partial fill upon patient request if the prescription is for a schedule... Start Date: 01/03/22 Stop Date: 01/10/22 Status: Ordered atorvastatin 40 mg oral tablet [...] opioid drug. Start Date: 01/01/22 Status: Ordered enoxaparin 120 mg/0.8 mL injectable solution 0.8 mL = 120 mg, Subcutaneous Injection, 2 times a day, for 21 days, # 33.6 mL, 0 Refills, Acute 01/24/22 13:28:00 EDT, 01/03/22 13:28:00 EDT, Injection, [facility], Partial fill upon patient request if the prescription is for a schedule... Start Date: 01/03/22 Stop Date: 01/24/22 Status: Ordered escitalopram 10 mg oral tablet 1 tablet = 10 mg, By Mouth, Daily, # 90 tablet, 0 Refills, Maintenance, 12/27/21 8:22:00 EDT, Tablet, Partial fill upon patient request if the prescription is for a schedule II opioid drug. Start Date: 12/27/21 Status: Ordered furosemide 40 mg oral tablet 40 mg, 1, tablet, By Mouth, Daily, # 30 tablet, Refills 0, Maintenance, 01/01/22 17:55:00 EDT, Partial fill upon patient request if the prescription is for a schedule II opioid drug. Start Date: 01/01/22 Status: Ordered hydrALAZINE 100 mg oral tablet [...] opioid drug. Start Date: 01/03/22 Status: Ordered metFORMIN 1000 mg oral tablet 1 tablet = 1,000 mg, By Mouth, Daily, with meal Start Date: 12/27/21 Status: Ordered topiramate 50 mg oral tablet 1 tablet = 50 mg, By Mouth, 2 times a day Start Date: 01/01/22 Status: Ordered Problem List Condition Effective Dates Status Health Status Inform ant Severe obesity(Confirmed) Active Vital Signs Most recent to oldest [Reference Range]: 1 Height 167.6 cm (12/28/21 3:05 PM) Weight 127 kg (12/28/21 3:05 PM) Oxygen Saturation [94-100 %] 99 % (12/28/21 3:05 PM) Pulse Rate [55-90 bpm] 68 bpm (12/28/21 3:05 PM) Body Mass Index [18.5-24.99] 45.21 *>HHI* (12/28/21 3:05 PM) Blood Pressure [90-138/55-84 mm Hg] 130/ 90mm Hg (12/28/21 3:05 PM) Temperature [96.8-100.4 DegF] 97.8 DegF (12/28/21 3:05 PM) Blood pressure sites Arm, left (12/28/21 3:05 PM) Temperature Route Oral (12/28/21 3:05 PM) Weight Obtained Via Patient/family state d (12/28/21 3:05 PM) Care Team Personnel Name: Courtney GONZALEZ, Brandin Stahl Address: [address] [place] [address]
--- OUTSIDE RECORDS SUMMARY | 2023-02-07 20:13 | XMS_ITS | Continuity of Care Document ---
Author Name Unknown Organization [facility] Address [address] [place] [address]- Care Team Providers Care Billboard Poster Name Role Phone Brandin Valdez MD Primary Care Physician [phone] [place] [facility] [place]s): 04/19/22 - 04/20/[address] [id number] Encounter Diagnosis Dizziness(Final) - 04/19/22 Dizziness(Final) - 04/19/22 Discharge Disposition: A-D/C Home Attending Physician: Arlette Hutchins MD Admitting Physician: Jason Luis MD Referring Physician: Not on Staff, Referring [...] 02/18/22 7:13:00 EST, Route to Pharmacy Electronically, [facility], Partial fill upon patient [...] 0 Refills, Maintenance, 04/20/22 15:26:00 EST, Tablet, [facility], Partial fill upon patient request if the prescription is for... Start Date: 04/20/22 Stop Date: 05/20/22 Status: Ordered warfarin 5 mg oral tablet See Instructions, Take 1 to 2.5 tablets by mouth daily as directed by the [facility], # 225 tablet, 1 Refills, Maintenance, 04/13/22 17:25:00 EST, Tablet, [id number], Partial fill upon patient request if the prescription is for a schedule... Start Date: 04/13/22 Status: Ordered warfarin 5 mg oral tablet See Instructions, Take 1 to 2 and 1/2 tablets by mouth daily as directed by the [facility], # 30 tablet, 4 Refills, Maintenance, 04/20/22 15:25:00 EST, Tablet, [facility], Partial fill upon patient request if the prescription is for... Start Date: 04/20/22 Status: Ordered Problem List Condition Confirmation Course Effective Dates Status Health St atus Informant Obese class II Confirmed Active Tubular adenoma of colon 1 Confirmed 01/18/22 Active 1repeat screening colonoscopy in 2028 Results Radiology Reports * Exam Date Time Procedure Performing Provider Status 04/19/22 5:[address] Angio Neck Deloris López; Auth (Julianne ified) Notes: (CT Angio Neck) Reason For Exam: Aneurysm, neck vessel(s);Other: RESULT: CT Angio Neck CT Angio Head, CT Angio Neck Hx of Present Illness: EMS called by patient, c o dizziness since this am, pt reported that he had and hit his . head strike on floor, no LOC. on warfarin for hx DVT per EMS pt is poor health historian; Reason: Other:; Neuro deficit, acute, stroke suspected; Clinical Question(s): Other:; Hematoma Aneurysm; Order Comment: / Other: TECHNIQUE: CT angiogram [...] optimize exposure parameters. RADIATION DOSE PARAMETERS: CTDIvol Body: 16.07 mGy, DLP Body: 789 mGy*cm. COMPARISON: Noncontrast CT head performed concurrently. FINDINGS: CTA OF THE NECK: Arch: There is a three vessel aortic arch. The origins of the supra aortic vessels are patent. Right carotid system: The common carotid and cervical internal carotid arteries are patent. There is calcified atherosclerotic plaque at the carotid bifurcation, but no ICA stenosis (0%) by NASCET criteria. There is no dissection or aneurysm. Left carotid system: The common carotid and cervical internal carotid arteries are patent. There iscalcified atherosclerotic plaque at the carotid bifurcation, but no ICA stenosis (0%) by NASCET criteria. There is no dissection or aneurysm. There is a co-dominant vertebral artery system. Right vertebral: No significant stenosis. No evidence of dissection or aneurysm. Left vertebral: No significant stenosis. No evidence of dissection or aneurysm. Other: Soft tissues and bones: Multiple palatine tonsilloliths are noted. No evidence of lymphadenopathy or mass. The thyroid is unremarkable. Visualized lungs are mildly blurred by motion artifact, withoutsignificant superimposed airspace opacity. Multilevel degenerative changes of the spine are noted, without acute osseous abnormality. CTA OF THE HEAD: Anterior circulation: Bilateral intracranial ICAs demonstrate atherosclerotic calcification, without stenosis. Bilateral MAURI and MCA branches are patent. Right A1 segment is mildly hypoplastic, with patent anterior communicating artery, a normal variant. There is no significant stenosis, proximal cutoff, aneurysm, or vascular malformation. Posterior circulation: Bilateral vertebral arteries, the basilar artery, and bilateral PICA, AICA, SCA, and TECHNICAL EDUCATION TEACHER branches are patent. There is no significant stenosis, proximal cutoff, aneurysm, or vascular malformation. Veins: Major dural venous sinuses are patent. Other: Soft tissues and bones: No midline shift or effacement of the basal cisterns. No space-occupying hemorrhage. No territorial loss of yin-white matter differentiation. Orbits are unremarkable. Mucus retention cysts are in the left maxillary sinus. Mild scattered mucosal thickening is seen in the paranasal sinuses, with no fluid levels. Mastoids are clear. Multiple dental caries and periapical lucencies are present. IMPRESSION: No proximal occlusion or high grade stenosis in the major arteries of the head and neck. A similar preliminary report was provided by [facility]. WSN: [id number] Ordering Physician: Rubén Bolden Dictated By: Vicki Ray MD Dictated Date/Time: 04/20/22 7:10 am Reviewed By: Vicki Ray MD Signed By: Vicki Ray MD Signed Date/Time: 04/20/22 7:10 am Transcribed By: ROBERT Transcribed Date/Time: 04/20/22 7:08 am * Exam Date Time Procedure Performing Provider Status 04/19/22 5:[address] Angio Head Deloris López; Auth (Julianne ified) Notes: (CT Angio Head) Reason For Exam: Neuro deficit, acute, stroke suspected;Other: RESULT: CT Angio Head CT Angio Head, CT Angio Neck Hx of Present Illness: EMS called by maryam akbar o dizziness since this am, pt reported that he had and hit his . head strike on floor, no LOC. on warfarin for hx DVT per EMS pt is poor health historian; Reason: Other:; Neuro deficit, acute, stroke suspected; Clinical Question(s): Other:; Hematoma Aneurysm; Order Comment: / Other: TECHNIQUE: CT angiogram [...] optimize exposure parameters. RADIATION DOSE PARAMETERS: CTDIvol Body: 16.07 mGy, DLP Body: 789 mGy*cm. COMPARISON: Noncontrast CT head performed concurrently. FINDINGS: CTA OF THE NECK: Arch: There is a three vessel aortic arch. The origins of the supra aortic vessels are patent. Right carotid system: The common carotid and cervical internal carotid arteries are patent. There is calcified atherosclerotic plaque at the carotid bifurcation, but no ICA stenosis (0%) by NASCET criteria. There is no dissection or aneurysm. Left carotid system: The common carotid and cervical internal carotid arteries are patent. There iscalcified atherosclerotic plaque at the carotid bifurcation, but no ICA stenosis (0%) by NASCET criteria. There is no dissection or aneurysm. There is a co-dominant vertebral artery system. Right vertebral: No significant stenosis. No evidence of dissection or aneurysm. Left vertebral: No significant stenosis. No evidence of dissection or aneurysm. Other: Soft tissues and bones: Multiple palatine tonsilloliths are noted. No evidence of lymphadenopathy or mass. The thyroid is unremarkable. Visualized lungs are mildly blurred by motion artifact, withoutsignificant superimposed airspace opacity. Multilevel degenerative changes of the spine are noted, without acute osseous abnormality. CTA OF THE HEAD: Anterior circulation: Bilateral intracranial ICAs demonstrate atherosclerotic calcification, without stenosis. Bilateral MAURI and MCA branches are patent. Right A1 segment is mildly hypoplastic, with patent anterior communicating artery, a normal variant. There is no significant stenosis, proximal cutoff, aneurysm, or vascular malformation. Posterior circulation: Bilateral vertebral arteries, the basilar artery, and bilateral PICA, AICA, SCA, and TECHNICAL EDUCATION TEACHER branches are patent. There is no significant stenosis, proximal cutoff, aneurysm, or vascular malformation. Veins: Major dural venous sinuses are patent. Other: Soft tissues and bones: No midline shift or effacement of the basal cisterns. No space-occupying hemorrhage. No territorial loss of yin-white matter differentiation. Orbits are unremarkable. Mucus retention cysts are in the left maxillary sinus. Mild scattered mucosal thickening is seen in the paranasal sinuses, with no fluid levels. Mastoids are clear. Multiple dental caries and periapical lucencies are present. IMPRESSION: No proximal occlusion or high grade stenosis in the major arteries of the head and neck. A similar preliminary report was provided by [facility]. WSN: [id number] Ordering Physician: Rubén Bolden Dictated By: Vicki Ray MD Dictated Date/Time: 04/20/22 7:10 am Reviewed By: Vicki Ray MD Signed By: Vicki Ray MD Signed Date/Time: 04/20/22 7:10 am Transcribed By: ROBERT Transcribed Date/Time: 04/20/22 7:08 am * Exam Date Time Procedure Performing Provider Status 04/19/22 7:[address] Abd/Pelvis W/ IV Contrast Only Lauryn Medina; Auth (Verified) Notes: (CT Abd/Pelvis W/ IV Contrast Only) Reason For Exam: LLQ abdominal pain;Other: RESULT: CT Abd/Pelvis W/ IV Contrast Only CT Abd/Pelvis W/ IV Contrast Only Hx of Present Illness: EMS called by maryam akbar dizziness since this am, pt reported that he had and hit his . head strike on floor, no LOC. on warfarin for hx DVT per EMS pt is poor health historian; Reason: Other:; LLQ abdominal pain; Clinical Question(s): Diverticulitis; Order Comment: TECHNIQUE: Spiral CT through the abdomen and pelvis with IV contrast formatted in 3 planes. 100 cc of Omnipaque 300 was administered intravenously. This study was performed without oral contrast. Weight-based protocol using automatic tube modulation was used to optimize exposure parameters. CTDIvol Body: 15.40 mGy, DLP Body: 869 mGy*cm. COMPARISON: 11/20/2006. FINDINGS: Personal Shopper View Findings, Lines and Tubes: None. Visualized Chest: There is diffuse prominence of the left ventricular wall. There are mild dependent changes of the imaged lung bases. There are coronary artery calcifications. There is a 1.3 cm nodule with a central coarse calcification in the left lung base, unchanged when compared to the prior exam. Diaphragm: Unremarkable. Liver: Unremarkable. Gallbladder: Absent consistent with prior cholecystectomy. Bile ducts: No biliary ductal dilation. Spleen: Unremarkable. Pancreas: Unremarkable. Adrenal glands: There is an indeterminate 1.7 cm left adrenal nodule. Kidneys and ureters: There are subcentimeter hypodense right renal lesions which are too small to further characterize. Bladder: Unremarkable. Reproductive organs: Unremarkable. Stomach, small bowel, and large bowel: Unremarkable. Appendix: Not seen, but no evidence of appendicitis. Peritoneum and retroperitoneum: There is no evidence of free air or free fluid in the abdomen or pelvis. Lymph nodes: No enlarged lymph nodes. Blood vessels: Mild vascular calcifications but no aneurysm. Abdominal and pelvic wall: There are fat filled small midline ventral abdominal wall hernias. Thereare irregular soft tissue attenuation lesions with central fat in the anterior abdominal wall likely secondary to abdominal injections. Bones: There are multilevel discogenic degenerative changes of the thoracolumbar spine with extensive osteophytosis. There is a right pars defects at L5. IMPRESSION: 1. There is no evidence of acute abdominal or pelvic pathology. 2. Again demonstrated is prominence of the wall of the left ventricle. Clinical correlation is recommended. 3. Multiple chronic findings as detailed above. WSN: [id number] Ordering Physician: Real Steven Dictated By: Macey Jordan MD Dictated Date/Time: 04/19/22 7:57 pm Reviewed By: Macey Jordan MD Signed By: Macey Jordan MD Signed Date/Time: 04/19/22 7:57 pm Transcribed By: ROBERT Transcribed Date/Time: 04/19/22 7:35 pm * Exam Date Time Procedure Performing Provider Status 04/19/22 5:[address] Cervical Spine W/O Contrast Deloris López; Arslan (Verified) Notes: (CT Cervical Spine W/O Contrast) Reason For Exam: Neck trauma, dangerous injury mechanism;Other: RESULT: CT Cervical Spine W/O Contrast CT Head/Brain W/O Contrast, CT Cervical Spine W/O Contrast CLINICAL INDICATION: Dizziness causing fall. Struck head on floor. Anticoagulation therapy. Poor historian. PRIOR EXAMS: 02/20/2022. TECHNIQUE: Incremental CT without contrast through the head was formatted in axial and coronal plane. Spiral CT without contrast through the cervical spine was formatted in 3 planes. Automatic tube modulation was used for the cervical spine and iterative dose reconstruction was used for both the head and cervical spine to optimize scan parameters and image quality. RADIATION DOSE PARAMETERS: CTDIvol Body: 18.00 mGy, DLP Body: 491 mGy*cm. CTDIvol Head: 39.90 mGy, DLP Head: 671 mGy*cm. FINDINGS: BRAIN There is no infarct. There is no intracerebral hemorrhage. There is no mass. VENTRICLES AND SULCI: The ventricles and sulci are symmetrical and normal. WHITE MATTER: Small amount of white matter abnormality to be due to small vessel disease. EXTRA AXIAL SPACES: There is no abnormal epidural, subdural, or subarachnoid blood or fluid. SKULL: There is no skull fracture.. PARANASAL SINUSES: Left maxillary sinus cyst. Otherwise clear. TEMPORAL BONES: The mastoid air cells are clear, as are the middle ear cavities. CERVICAL VERTEBRAL BODIES: There is no fracture. There is no focal bony lesion.. ALIGNMENT OF CERVICAL SPINE: The cervical vertebral bodies are in normal alignment.. CERVICAL DEGENERATIVE CHANGES: There are no degenerative changes. LUNG APICES: No pneumothorax. IMPRESSION: HEAD 1. No acute intracranial abnormality. 2. No skull fracture. CERVICAL SPINE: 1. There is no fracture. There is no focal bony lesion. 2. Normal alignment. 3. No degenerative changes. WSN: [id number] Ordering Physician: Rubén Bolden Dictated By: Paolo Fernandez MD Dictated Date/Time: 04/19/22 4:45 pm Reviewed By: Paolo Fernandez MD Signed By: Paolo Fernandez MD Signed Date/Time: 04/19/22 4:45 pm Transcribed By: ROBERT Transcribed Date/Time: 04/19/22 4:38 pm * Exam Date Time Procedure Performing Provider Status 04/19/22 5:[address] Head/Brain W/O Contrast Miesha López ra; Auth (Verified) Notes: (CT Head/Brain W/O Contrast) Reason For Exam: Trauma RESULT: CT Head/Brain W/O Contrast CT Head/Brain W/O Contrast, CT Cervical Spine W/O Contrast CLINICAL INDICATION: Dizziness causing fall. Struck head on floor. Anticoagulation therapy. Poor historian. PRIOR EXAMS: 02/20/2022. TECHNIQUE: Incremental CT without contrast through the head was formatted in axial and coronal plane. Spiral CT without contrast through the cervical spine was formatted in 3 planes. Automatic tube modulation was used for the cervical spine and iterative dose reconstruction was used for both the head and cervical spine to optimize scan parameters and image quality. RADIATION DOSE PARAMETERS: CTDIvol Body: 18.00 mGy, DLP Body: 491 mGy*cm. CTDIvol Head: 39.90 mGy, DLP Head: 671 mGy*cm. FINDINGS: BRAIN There is no infarct. There is no intracerebral hemorrhage. There is no mass. VENTRICLES AND SULCI: The ventricles and sulci are symmetrical and normal. WHITE MATTER: Small amount of white matter abnormality to be due to small vessel disease. EXTRA AXIAL SPACES: There is no abnormal epidural, subdural, or subarachnoid blood or fluid. SKULL: There is no skull fracture.. PARANASAL SINUSES: Left maxillary sinus cyst. Otherwise clear. TEMPORAL BONES: The mastoid air cells are clear, as are the middle ear cavities. CERVICAL VERTEBRAL BODIES: There is no fracture. There is no focal bony lesion.. ALIGNMENT OF CERVICAL SPINE: The cervical vertebral bodies are in normal alignment.. CERVICAL DEGENERATIVE CHANGES: There are no degenerative changes. LUNG APICES: No pneumothorax. IMPRESSION: HEAD 1. No acute intracranial abnormality. 2. No skull fracture. CERVICAL SPINE: 1. There is no fracture. There is no focal bony lesion. 2. Normal alignment. 3. No degenerative changes. WSN: [id number] Ordering Physician: Rubén Bolden Dictated By: Paolo Fernandez MD Dictated Date/Time: 04/19/22 4:45 pm Reviewed By: Paolo Fernandez MD Signed By: Paolo Fernandez MD Signed Date/Time: 04/19/22 4:45 pm Transcribed By: ROBERT Transcribed Date/Time: 04/19/22 4:38 pm * Exam Date Time Procedure Performing Provider Status 04/19/22 4:12 PM Chest 2 Views Frontal and Lat Juancarlos Rogel; Arslan (Verified) Notes: (Chest 2 Views Frontal and Lat) Reason For Exam: Stroke;Other: RESULT: Chest 2 Views Frontal and Lat Chest 2 Views Frontal and Lat INDICATION: Fall after possible presyncopal episode. COMPARISON: 03/30/2022 chest x-ray and CT scan FINDINGS: LINES AND TUBES: None. LUNGS AND PLEURA: Stable partly calcified granuloma in the left lateral CP angle. No evidence of edema or pneumonia. No pleural effusion. No pneumothorax. HEART, MEDIASTINUM AND JUDI: Heart is normal in size. Unchanged tortuous descending aorta. BONES AND SOFT TISSUES: No acute abnormality. IMPRESSION: No acute abnormality. WSN: [id number] Ordering Physician: Rubén Bolden Dictated By: Vitaly Webster MD Dictated Date/Time: 04/19/22 4:16 pm Reviewed By: Vitaly Webster MD Signed By: Vitaly Webster MD Signed Date/Time: 04/19/22 4:16 pm Transcribed By: ROBERT Transcribed Date/Time: 04/19/22 4:13 pm Vital Signs Most recent to oldest [Reference Range]: 1 2 3 Height 168 cm (04/20/22 11:22 AM) 168 cm (04/20/22 7:49 AM) 168 cm (04/20/22 2:25 AM) Weight 105 kg (04/19/22 10:50 PM) 105 kg (04/19/22 10:33 PM) 105.5 kg (04/19/22 3:31 PM) Oxygen Saturation [94-100 %] 97 % (04/20/22 11:22 AM) 100 % (04/20/22 7:49 AM) 98 % (04/20/22 2:25 AM) Pulse Rate [55-90 bpm] 59 bpm (04/20/22 11:22 AM) 66 bpm (04/20/22 7:49 AM) 54 bpm *L* (04/20/22 2:25 AM) Body Mass Index [18.5-24.99 kg/m2] 37.2 kg/m2 *>HHI* (04/19/22 10:50 PM) Blood Pressure [90-138/55-84 mm Hg] 157/65mm Hg *H* (04/20/22 11:22 AM) 185/86mm Hg *H* (04/20/22 7:49 AM) 188/93mm Hg *H* (04/20/22 3:53 AM) Respiratory Rate [16-30 br/min] 18 br/min (04/20/22 11:22 AM) 18 br/min (04/20/22 9:00 AM) 18 br/min (04/20/22 7:49 AM) Temperature [96.8-100.4 DegF] 98.5 DegF (04/20/22 11:22 AM) 97.8 DegF (04/20/22 7:49 AM) 98.1 DegF (04/20/22 2:25 AM) Mode of Delivery (Oxygen) Room air (04/20/22 11:22 AM) Room air (04/20/22 7:49 AM) Room air (04/20/22 2:25 AM) Blood pressure sites Arm, right (04/20/22 11:22 AM) Arm, right (04/20/22 7:49 AM) Arm, right (04/20/22 3:53 AM) Temperature Route Oral (04/20/22 11:22 AM) Oral (04/20/22 7:49 AM) Oral (04/20/22 2:25 AM) Dry Weight 105 kg (04/19/22 10:50 PM) 105.5 kg (04/19/22 3:31 PM) Weight Obtained Via Bed scale (04/19/22 10:50 PM) Patient/family stated (04/19/22 3:31 PM) Dry Weight Obtained Via Patient/family stated (04/19/22 3:31 PM) Social History Social History Type Response Smoking Status Never (less than 100 in lifetime) entered on: 02/14/22 Sex History and physical note * Maria Elena Batista MD: PERFORM, MODIFY Event Display: History and Physical Hospital Authored Date: [id number] Patient: ??MONSTER TAMAYO ? Age:??51 Years?Sex:??Male?:??1970?? Chief Complaint/Reason for Consultation EMS called by patient, c/o dizziness since this morning. Fall x1. +head strike on floor, no LOC. onwarfarin for hx DVT. denies CP, no SOB. still c/o dizziness. Does not know if he has vertigo hx, poor health historian History of Present Illness 51-year-old male with a past medical history of hypertension, hyperlipidemia, PE on Coumadin, diabetes type 2, heart failure with reduced EF presents to the hospital with dizziness.?? Patient reportsthat he felt dizzy.?? Reports that he did not pass out.?? [place] off balance.?? Patient reports that he took an extra doses of his anxiety medication hydroxyzine and Ativan before he felt dizzy.?? Patient denies any unilateral weakness numbness tingling, dysarthria, dysphagia, seizure-like activity.?? Patient denies feeling sick, fever, chills, shortness of breath, chest pain.?? Patient reports that sometimes he has diarrhea but none currently, reports to have a headache and blurred vision for which she has seen dry wall installer today and was prescribed new glasses.?? Blurry vision preceded his symptoms today. ?? In the emergency department, patient is hemodynamically stable, lab work within normal limits, high-sensitivity troponin 44, 44 and 50, EKG shows normal sinus rhythm without any acute ST-T changes, patient had CT head with no findings, CTA head and neck without any acute stenosis on preliminary read, CT abdomen was also obtained as patient complained to the ED provider about abdomen discomfortno acute findings noted, incidental ventral hernia and adrenal nodule. Review of Systems A full review of systems was completed and is otherwise negative except as mentioned in history of present illness. Objective Measurements?? Height: 168 cm (04/20/22) Weight: 105 kg (04/19/22) Dry Weight: 105 kg (04/19/22) Body Mass Index:??37.2 kg/m2??Critical (04/19/22) ? Vital Signs?? Temperature: 98.1 DegF (04/20/22 02:25:00) Temperature Route: Oral (04/20/22 02:25:00) Pulse Rate:??54 bpm??Low (04/20/22 02:25:00) Pulse Rate, Lyin bpm (04/19/22 22:33:00) Systolic Blood Pressure, Lyin mm Hg (04/19/22:33:00) Diastolic Blood Pressure, Lyin mm Hg (04/19/22 22:33:00) Pulse Rate, Sittin bpm (04/19/22 22:33:00) Systolic Blood Pressure, Sittin mm Hg (04/19/22 22:33:00) Diastolic Blood Pressure, Sittin mm Hg (04/19/22 22:33:00) Pulse Rate, Standin bpm (04/19/22 22:33:00) Systolic Blood Pressure, Stand[place] mm Hg (04/19/22 22:33:00) Diastolic Blood Pressure, Stand[place] mm Hg (04/19/22 22:33:00) Respiratory Rate: 18 br/min (04/20/22 02:25:00) Vented: No (04/19/22 20:38:00) Systolic Blood Pressure:??188 mm Hg??High (04/20/22 03:53:00) Diastolic Blood Pressure:??93 mm Hg??High (04/20/22 03:53:00) Blood pressure sites: Arm, right (04/20/22 03:53:00) Mean Arterial Pressure: 112 mm Hg (04/20/22 02:25:00) Pulse Pressure: 109 mm Hg (04/20/22 02:25:00) Oxygen Saturation: 98 % (04/20/22 02:25:00) Mode of Delivery (Oxygen): Room air (04/20/22 02:25:00) Early Warning Score: 0 (04/20/22 03:53:55) ? Physical Exam Constitutional: Alert, in no acute distress. Head EENT: Extraocular muscle movement intact.??Moist mucous membranes.?? Neck: Supple. No JVD. Respiratory: Clear to auscultation. No wheezing or crackles. No use of accessory muscles. Cardiovascular: S1S2 regular. No murmurs, rubs or gallops. Gastrointestinal: Abdomen soft, non-tender, non-distended. Normal bowel sounds. Genitourinary: No CVA tenderness. Extremities: No lower extremity pitting??edema. No cyanosis or clubbing. Neurologic: AAOx3, Speech normal. CN 2-12 intact, motor strength equal??throughout, sensations intact, cerebellar signs normal,??gait normal??no focal neurological deficits. Skin: No rash. Psychiatric: Normal mood and affect Assessment/Plan Diagnoses Dizziness ??(R42) Dizziness ??(R42) HLD (hyperlipidemia) ??(E78.5) HTN (hypertension) ??(I10) Heart failure ??(I50.9) History of pulmonary embolism ??(Z86.711) Type 2 diabetes mellitus ??(E11.9) ?? Assessment:??51-year-old male with a past medical history of hypertension, hyperlipidemia, PE on Coumadin, diabetes type 2, heart failure with reduced EF presents to the hospital with dizziness. ?? Dizziness (R42):??Patient describes feeling off balance,??patient reports headache??but this preceded his symptoms and also blurred vision for which she seen dry wall installer and was prescribed glasses,??headache sounds to be more tension headache type, no focal symptoms,??patient reports she took extra doses of his lorazepam and hydroxyzine together to help with his anxiety.??CT head and CTA negative for any acute findings, neurological exam is non-focal,however patient has risk factors and previous small infarcts on MRI and INR suntherapeutic,will obtain MRI to further evluate, ??other differentials include??cardiac causes, Patient's symptoms could be??in the setting of having taken extra doses of his anxiolytics -Patient is noted to have elevated troponin, no chest pain, EKG does not show any acute changes, trend has been flat,last echo was done with bubble study on 02/16/2022 no [id number] shunting noted,echo on December 2021 showed EF of 50 to 60%, no definite wall motion abnormalities, no attic stenosis, mild mitral regurg, no pericardial effusion -Obtain echocardiogram??specially due to elevated troponin -MRI -Interrogate??device -Telemetry monitoring -orthostat ? HLD (hyperlipidemia) (E78.5):??Continue statin ?? Heart failure (I50.9):??Appears compensated no signs of volume overload,Patient is noted to have elevated troponin, no chest pain, EKG does not show any acute changes, trend has been flat,last echo was done with bubble study on 02/16/2022 no [id number] shunting noted, echo on December 2021 showed EF of 50 to 60%, no definite wall motion abnormalities, no aortic stenosis, mild mitral regurg, nopericardial effusion -Continue losartan ?ACEI or ARB for LVSD:??ARB has been ordered ?? History of pulmonary embolism (Z86.711):??INR 1.7, patient missed warfarin dose as he was in the ED, will resume warfarin 10 mg in pm -if INR still subtherapuetic then he will need bridging with lovenox ?? Type 2 diabetes mellitus (E11.9):??a1c 5.6, on metformin ?? VTE Prophylaxis:??warfarin ?VTE Prophylaxis Assessment:??VTE Prophylaxis Ordered ?? Code Status:??patient wishes to be full code ?Order Code Status:??Code Status Ordered ?? Ongoing Medical Necessity:??eval of presyncope ?? Discharge Planning:??pending clinical course ?? This note was created using [email or web address] speech recognition software, there may be unwanted word substitution, typographical errors or grammatical error, an attempt at proofreading has been made to minimize errors. please call if there are any questions regarding plan of care. ? Histories Allergies Allergies ?(Active and Proposed Allergies Only) vancomycin? (Severity: Unknown severity, Onset: Unknown) ? Past Medical History/Problem List Active Problems??(2) Obese class II Tubular adenoma of colon ? Past Surgical History Colonoscopy: 01/17/22 Esophagogastroduodenoscopy and biopsy: 01/17/22 Cholecystectomy: 02/14/14 ? Social History denies alcohol use,??smoking, drug use ? Family History Father: Cancer of colon no FH of cardiac issues ? Medications Home Medications alpha-lipoic acid (Alpha Lipoic 300 mg oral tablet)?1?tab(s)?300?Milligram?By Mouth?2 times a day?for 30?Days?for diabetic neuropathy ;stop if dizziness n/v Atorvastatin (atorvastatin 40 mg oral tablet)?1?tab(s)?40?Milligram?By Mouth?Daily Escitalopram (escitalopram 10 mg oral tablet)?1?tab(s)?10?Milligram?By Mouth?Daily HydrOXYzine (hydrOXYzine hydrochloride 25 mg oral tablet)?1?tab(s)?25?Milligram?By Mouth?Daily at bedtime?as needed?for anxiety Insulin Aspart (Insulin Aspart FlexPen 100 units/mL [...] tablet)?1?tab(s)?100?Milligram?By Mouth?2 times a day Warfarin (warfarin 3 mg oral tablet)?3?tab(s)?9?Milligram?By Mouth?Daily?for 30?Days?dose to be adjusted as recommended by anticoagulation clinic Warfarin (warfarin 5 mg oral tablet)?See Instructions?Take 1 to 2 and 1/2 tablets by mouth daily as directed by the Coumadin Clinic Warfarin (warfarin 5 mg oral tablet)?See Instructions?Take 1 to 2.5 tablets by mouth daily asdirected by the Coumadin Clinic ? Results Recent Labs BLOOD COUNT & DIFF WBC 8.4 k/mm3 ()?? 04/19/2022 15:50 RBC 4.83 m/mm3 ()?? 04/19/2022 15:50 Hgb 13.0 Gm/dL (Low)?? 04/19/2022 15:50 Hct 38.8 % (Low)?? 04/19/2022 15:50 MCV 80.3 femtoliters ()?? 04/19/2022 15:50 MCH 26.9 pg (Low)?? 04/19/2022 15:50 MCHC 33.5 g/dL ()?? 04/19/2022 15:50 Platelet Count 210 k/mm3 ()?? 04/19/2022 15:50 RDW-SD 42.2 femtoliters ()?? 04/19/2022 15:50 MPV 12.3 femtoliters ()?? 04/19/2022 15:50 Nucleated RBC (Automated) 0.0 #/100 WBC'S ()?? 04/19/2022 15:50 Abs. NRBC 0.0 k/mm3 ()?? 04/19/2022 15:50 Abs. Neut 5.7 k/mm3 ()?? 04/19/2022 15:50 Abs. Lymph 1.8 k/mm3 ()?? 04/19/2022 15:50 Abs. Oliver 0.7 k/mm3 ()?? 04/19/2022 15:50 Abs. Eo 0.1 k/mm3 ()?? 04/19/2022 15:50 Abs. Baso 0.0 k/mm3 ()?? 04/19/2022 15:50 Neut % 68.3 % ()?? 04/19/2022 15:50 Lymph % 21.5 % ()?? 04/19/2022 15:50 Oliver % 8.0 % ()?? 04/19/2022 15:50 Eos % 1.6 % ()?? 04/19/2022 15:50 Baso % 0.4 % ()?? 04/19/2022 15:50 Imm Gran 0.2 % ()?? 04/19/2022 15:50 Abs. Imm Gran 0.0 k/mm3 ()?? 04/19/2022 15:50 ?? CARDIAC High Sensitivity Troponin (HSTnT) 50 ng/L (High)?? 04/20/2022 01:42 ?? CHEM GENERAL Sodium 139 mmol/L ()?? 04/19/2022 15:50 Potassium 3.9 mmol/L ()?? 04/19/2022 15:50 Chloride 105 mmol/L ()?? 04/19/2022 15:50 Bicarbonate Level 21 mmol/L (Low)?? 04/19/2022 15:50 Anion Gap 13 ()?? 04/19/2022 15:50 Glucose Level 88 mg/dL ()?? 04/19/2022 15:50 Glucose, POC 148 mg/dL (High)?? 04/19/2022 23:21 BUN 28 mg/dL (High)?? 04/19/2022 15:50 Creatinine-Blood 1.2 mg/dL ()?? 04/19/2022 15:50 Estimated GFR Creatinine 76 ML/MIN/1.73 M2 ()?? 04/19/2022 15:50 Calcium 9.3 mg/dL ()?? 04/19/2022 15:50 Protein, Total 6.4 Gm/dL ()?? 04/19/2022 15:50 Albumin 4.1 Gm/dL ()?? 04/19/2022 15:50 AG Ratio 1.8 ()?? 04/19/2022 15:50 Alkaline Phosphatase 84 units/L ()?? 04/19/2022 15:50 Lipase 20 units/L ()?? 04/19/2022 15:50 AST (SGOT) 15 units/L ()?? 04/19/2022 15:50 ALT (SGPT) 18 units/L ()?? 04/19/2022 15:50 Bilirubin, Total 0.6 mg/dL ()?? 04/19/2022 15:50 Lactate 0.8 mmol/L ()?? 04/19/2022 15:01 ?? COAG INR 1.7 (High)?? 04/19/2022 15:50 Protime (PT) 17.1 seconds (High)?? 04/19/2022 15:50 ?? MISC. CHEMISTRY Hold Gel Top SPECIMEN DISCARDED AFTER 1 WEEK ()?? 04/20/2022 01:39 ?? VIROLOGY Influenza A PCR NEGATIVE ()?? 04/19/2022 16:02 Influenza B PCR NEGATIVE ()?? 04/19/2022 16:02 RSV PCR NEGATIVE ()?? 04/19/2022 16:02 COVID-19 PCR Specimen Source NASAL ()?? 04/19/2022 16:02 COVID-19 PCR Result NEGATIVE ()?? 04/19/2022 16:02 ? US Heart * Event Display: Echocardiogram - Complete Authored Date: [id number] Transthoracic Echocardiography Report (TTE) Patient Demographics Patient Name MONSTER TAMAYO Date of Study 04/20/2022 Corporate Gender Male Facility Race Ethnicity Date of 1970 Height: 66.14 inches Age 51 year(s) Weight: 231.49 pounds Accession Number [id number] BSA: 2.13 m2 Room Number [id number] BMI: 37.2 kg/m2 Referring Physician Lynne Arredondo MD Interpreting Physician Kervin Delong MD International Manager Magen Haskins Indications Dizziness or presyncope. Clinical History Hyperlipidemia. Hypertension. Diabetes. Heart failure. Pulmonary embolus. Study Data Type of Study TTE procedure:Echo Complete-(Doppler, Colorflow) with Contrast. Study Date04/20/2022 Start Time: 02:29 PM Study Location[place] [facility] [place] Study Status: Bedside Patient Status: Routine Technical Quality: Adequate Blood Pressure:185/86 mmHg EKG: Within normal limits HR: 61 bpm Contrast Medium: Definity. Amount - 2 ml 2D Measurements LV Diastolic Dimension: 6.5 cm LV Systolic Dimension: 5.4 cm LV Septum Diastolic: 1.4 cm LV PW Diastolic: 1.4 cm AO Root Dimension: 3.9 cm LA ESV (BP):48.8 ml LVOT Stroke Volume: 65.24 ml LA ESV Index: 23 ml/m2 Stroke Volume Index30.63 ml/m2 LVOT: 2.7 cm Cardiac Index:1.87 l/min/m2 Doppler Measurements AV Peak Velocity: 113 cm/s MV Peak E-Wave: 36.3 cm/s AV Peak Gradient: 5.11 mmHg MV Peak A-Wave: 65.1 cm/s AV Mean Gradient: 2 mmHg MV E/A Ratio: 0.56 AV VTI:18.7 cm LVOT Peak Velocity: 64.9 cm/s LVOT VTI11.4 cm MV Deceleration Time: 211 msec AV Area (Continuity):3.49 cm2 PV Peak Velocity: 91.2 cm/s PV Peak Gradient: 3.33 mmHg E' Septal Velocity: 4.23 cm/s E' Lateral Velocity: 2.82 cm/s E/Med E':8.27152 E/Lat E':12.93660 Cardiac Anatomy Left Ventricle/Interventricular Septum The left ventricular size is normal. The left ventricular wall thickness is severely increased. The LV systolic function is low normal . The left ventricular ejection fraction is 50-55 %. Cannot rule out basal to mid inferior wall hypokinesis . Left Atrium/Interatrial Septum The left atrium is normal in size. Aortic Valve The aortic valve leaflet opening is normal . There is no aortic stenosis. There is trace aortic regurgitation. Mitral Valve The mitral valve is grossly normal. There is mild mitral regurgitation. Aorta The aortic root is at the upper limit of normal. Right Ventricle The right ventricle is poorly visualized. The right ventricle is normal in size. Right ventricular systolic function appears preserved. Right Atrium The right atrium is normal in size. Pulmonic Valve The pulmonic valve velocity is normal. Tricuspid Valve There is mild tricuspid valve regurgitation. Pumonary Artery An accurate pulmonary artery pressure could not be obtained. Venous Structures The inferior vena cava is poorly visualized. The inferior vena cava appears grossly normal. Pericardium/Extracardiac There is no significant pericardial effusion. Summary The left ventricular size is normal. The left ventricular wall thickness is severely increased. The LV systolic function is low normal . The left ventricular ejection fraction is 50-55 %. Cannot rule out basal to mid inferior wall hypokinesis . The right ventricle is poorly visualized. The right ventricle is normal in size. Right ventricular systolic function appears preserved. An accurate pulmonary artery pressure could not be obtained. Signature * Event Display: Echocardiogram - Complete Authored Date: [id number] Note * Event Display: Cardiac Rhythm Strips Authored Date: * America Ellis RN: PERFORM Event Display: Discharge/Transfer Note Hospital Authored Date: [id number] Nursing Discharge Note Entered On: 04/20/2022 15:57 EST Performed On: 04/20/2022 15:56 EST by America Ellis RN Nursing Discharge Note 2 Discharge Time : 04/20/2022 15:56 EST Discharge Level of Care at Discharge : Home/Retirement/Foster Care Patient Left Unit Via : Wheelchair Patient Accompanied Off Unit with : Responsible adult DC Instructions Provided & Signed by Pt : Yes Patient Understands D/C Instructions : Yes Patient Instructions Discharge Signed : Yes Did Pt have Specialty Bed or Wound Vac : No America Ellis RN - 04/20/2022 15:56 EST * Cuong GONZALEZ, Arlette: MODIFY, MODIFY, PERFORM, MODIFY, MODIFY Event Display: Discharge/Transfer Note Hospital Authored Date: [id number] Patient: ??MONSTER TAMAYO ? Age:??51 Years?Sex:??Male?:??1970?? Patient Information Discharge Location: B Primary Care Physician: Brandin Valdez MD Admit Date/Time: 04/19/22 13:45 Discharge Disposition Discharge Disposition: Home: No Services Discharge Diagnosis Dizziness (R42) HLD (hyperlipidemia) (E78.5) HTN (hypertension) (I10) Heart failure (I50.9) History of pulmonary embolism (Z86.711) Type 2 diabetes mellitus (E11.9) ?? _ Discharge Medications alpha-lipoic acid (Alpha Lipoic 300 mg oral tablet)?1?tab(s)?300?Milligram?By Mouth?2 times a day?for 30?Days?for diabetic neuropathy ;stop if dizziness n/v Atorvastatin (atorvastatin 40 mg oral tablet)?1?tab(s)?40?Milligram?By Mouth?Daily Escitalopram (escitalopram 10 mg oral tablet)?1?tab(s)?10?Milligram?By Mouth?Daily HydrOXYzine (hydrOXYzine hydrochloride 25 mg oral tablet)?1?tab(s)?25?Milligram?By Mouth?Daily at bedtime?as needed?for anxiety Insulin Aspart (Insulin Aspart FlexPen 100 units/mL [...] tablet)?1?tab(s)?100?Milligram?By Mouth?2 times a day Warfarin (warfarin 3 mg oral tablet)?3?tab(s)?9?Milligram?By Mouth?Daily?for 30?Days?dose to be adjusted as recommended by anticoagulation clinic Warfarin (warfarin 5 mg oral tablet)?See Instructions?Take 1 to 2 and 1/2 tablets by mouth daily as directed by the Coumadin Clinic Warfarin (warfarin 5 mg oral tablet)?See Instructions?Take 1 to 2.5 tablets by mouth daily asdirected by the Coumadin Clinic ? Doses Changed None PCP Follow-Up/Heads-Up -??Follow-up on incidental CT findings including??ventral hernia and adrenal nodule, ??INR levels, review of medication list. Hospital Course This is a 51-year-old gentleman with extensive PMH including HTN, HLD, PE???on Coumadin, DM type II, HFrEF who presented to the hospital with dizziness. As per patient he had taken extra doses of anxiety medication???hydroxyzine and Ativan. Throughout, there was no complaint of any focal deficits, w eakness/numbness/tingling, dysarthria, dysphagia or seizure-like activity. He denied any fevers/chills/chest pain/shortness of breath or any sick contacts. Upon presentation found to be hemodynamically stable, flat troponin and EKG in NSR without any acute ischemic changes. CT head, CTA head and neck without any acute stenosis/acute findings. CT abdomen was also obtained since he was complaining of abdominal discomfort however no acute finding except for an incidental ventral hernia and an adrenal nodule. ?? During hospitalization, patient was found to be orthostatic positive however given the fact that hehas HFrEF and was not symptomatic, IV fluids were held. Upon chart review, it seems patient was last discharged [place] [facility] [place] for dizziness with some hypertension which was most likely in setting of starting multiple antihypertensive medications. Given lab work and radiologic investigations were negative, it is possible that patient was feeling dizzy in setting of polypharmacy including hydroxyzine/Ativan/antihypertensives. An echo was repeated with preserved ejection fraction. Patientalso has a Holter monitor to evaluate for A. fib.?He is on anticoagulation and would be safe discharge. ?? Lastly, he was noted to have subtherapeutic INR at 1.7. This was most likely due to the fact that he missed his regular dose upon presentation to the hospital??however??he was found to have subtherapeutic INR previously as well and there is concern for compliance.??He was given one-time dose of 10 m g??on??04/20/2022.??He has agreed to follow-up with Coumadin clinic on coming Saturday.??He is also being followed by hematology as an outpatient. ?? I had multiple discussions with the patient explaining all ongoing medical issues He expressed an understanding and agreed with the plan. No medication changes were made. ? -Please follow-up with your PCP for incidental finding sliding ventral hernia and adrenal nodule onhis CT abdomen. -Please make sure you follow-up with Coumadin clinic within 2-3 days to obtain INR levels and adjust warfarin doses accordingly -Please make sure you follow-up with your primary care physician for repeat set of blood work and review of medications. -Please monitor your blood pressure at home daily in the morning and also if you experience symptoms of dizziness. ?? Objective . Physical Exam Constitutional: Alert, in no acute distress. Head EENT: Extraocular muscle movement intact. Moist mucous membranes. Neck: Supple. No JVD. Respiratory: Clear to auscultation. No wheezing or crackles. No use of accessory muscles. Cardiovascular: S1S2 regular. No murmurs, rubs or gallops. Gastrointestinal: Abdomen soft, non-tender, non-distended. Normal bowel sounds. Genitourinary: No CVA tenderness. Extremities: No lower extremity pitting edema. No cyanosis or clubbing. Neurologic: AAOx3, Speech normal. No focal neurological deficits. Skin: No rash. Psychiatric: Normal mood and affect Pending Results Hold Blue Top Tube ordered on 04/19/2022 Hold Lavender Tube (BB) ordered on 04/19/2022 INR ordered on 04/20/2022 INR ordered on 04/21/2022 Urinalysis w/hold for Urine Culture ordered on 04/19/2022 Follow-Up Appointments Added Follow Up ?Time Frame ?Comments Courtney GONZALEZ, Brandin Stahl Patient Instructions ?? -Please follow-up with your PCP for incidental finding sliding ventral hernia and adrenal nodule onhis CT abdomen. -Please make sure you follow-up with Coumadin clinic within 2-3 days to obtain INR levels and adjust warfarin doses accordingly -Please make sure you follow-up with your primary care physician for repeat set of blood work and review of medications. -Please monitor your blood pressure at home daily in the morning and also if you experience symptoms of dizziness. ?? Post Discharge Care Discharge ?04/20/22 15:15:00 EST Results Discharge Labs BLOOD COUNT & DIFF WBC 7.7 k/mm3 ()?? 04/20/2022 08:34 RBC 4.88 m/mm3 ()?? 04/20/2022 08:34 Hgb 12.9 Gm/dL (Low)?? 04/20/2022 08:34 Hct 39.5 % (Low)?? 04/20/2022 08:34 MCV 80.9 femtoliters ()?? 04/20/2022 08:34 MCH 26.4 pg (Low)?? 04/20/2022 08:34 MCHC 32.7 g/dL (Low)?? 04/20/2022 08:34 Platelet Count 200 k/mm3 ()?? 04/20/2022 08:34 RDW-SD 42.0 femtoliters ()?? 04/20/2022 08:34 MPV 11.5 femtoliters ()?? 04/20/2022 08:34 Nucleated RBC (Automated) 0.0 #/100 WBC'S ()?? 04/20/2022 08:34 Abs. NRBC 0.0 k/mm3 ()?? 04/20/2022 08:34 Abs. Neut 5.7 k/mm3 ()?? 04/19/2022 15:50 Abs. Lymph 1.8 k/mm3 ()?? 04/19/2022 15:50 Abs. Oliver 0.7 k/mm3 ()?? 04/19/2022 15:50 Abs. Eo 0.1 k/mm3 ()?? 04/19/2022 15:50 Abs. Baso 0.0 k/mm3 ()?? 04/19/2022 15:50 Neut % 68.3 % ()?? 04/19/2022 15:50 Lymph % 21.5 % ()?? 04/19/2022 15:50 Oliver % 8.0 % ()?? 04/19/2022 15:50 Eos % 1.6 % ()?? 04/19/2022 15:50 Baso % 0.4 % ()?? 04/19/2022 15:50 Imm Gran 0.2 % ()?? 04/19/2022 15:50 Abs. Imm Gran 0.0 k/mm3 ()?? 04/19/2022 15:50 ?? CARDIAC High Sensitivity Troponin (HSTnT) 50 ng/L (High)?? 04/20/2022 01:42 ? CHEM GENERAL Sodium 144 mmol/L ()?? 04/20/2022 08:34 Potassium 4.2 mmol/L ()?? 04/20/2022 08:34 Chloride 107 mmol/L ()?? 04/20/2022 08:34 Bicarbonate Level 24 mmol/L ()?? 04/20/2022 08:34 Anion Gap 13 ()?? 04/20/2022 08:34 Glucose Level 98 mg/dL ()?? 04/20/2022 08:34 Glucose, POC 149 mg/dL (High)?? 04/20/2022 12:06 BUN 23 mg/dL (High)?? 04/20/2022 08:34 Creatinine-Blood 1.1 mg/dL ()?? 04/20/2022 08:34 Estimated GFR Creatinine 87 ML/MIN/1.73 M2 ()?? 04/20/2022 08:34 Calcium 9.4 mg/dL ()?? 04/20/2022 08:34 Protein, Total 6.4 Gm/dL ()?? 04/19/2022 15:50 Albumin 4.1 Gm/dL ()?? 04/19/2022 15:50 AG Ratio 1.8 ()?? 04/19/2022 15:50 Alkaline Phosphatase 84 units/L ()?? 04/19/2022 15:50 Lipase 20 units/L ()?? 04/19/2022 15:50 AST (SGOT) 15 units/L ()?? 04/19/2022 15:50 ALT (SGPT) 18 units/L ()?? 04/19/2022 15:50 Bilirubin, Total 0.6 mg/dL ()?? 04/19/2022 15:50 Lactate 0.8 mmol/L ()?? 04/19/2022 15:01 ?? COAG INR 1.7 (High)?? 04/20/2022 08:34 Protime (PT) 17.0 seconds (High)?? 04/20/2022 08:34 ?? MISC. CHEMISTRY Hold Gel Top SPECIMEN DISCARDED AFTER 1 WEEK ()?? 04/20/2022 01:39 ? VIROLOGY Influenza A PCR NEGATIVE ()?? 04/19/2022 16:02 Influenza B PCR NEGATIVE ()?? 04/19/2022 16:02 RSV PCR NEGATIVE ()?? 04/19/2022 16:02 COVID-19 PCR Specimen Source NASAL ()?? 04/19/2022 16:02 COVID-19 PCR Result NEGATIVE ()?? 04/19/2022 16:02 ? 31??minutes spent on discharge * America Ellis RN: PERFORM Event Display: Patient Education/Instruction Authored Date: [id number] Inpatient Adult Discharge Instructions [address] [address] Name: MONSTER TAMAYO : 1970 Visit: 04/19/2022 13:45:00 Current Date: 04/20/2022 15:29 Account: [id number] Inpatient Adult Discharge Instructions We would like [...] and their families. Surveys are administered by [employer] ?? If further treatment with your primary care physician or another doctor is recommended, it is important for you to keep the appointment. Call your primary care physician or return to the Emergency Department immediately if your condition worsens, fails to improve, or new symptoms develop. If you need to find a doctor, you can call [facility] [employer] for a referral at [phone] or toll free at [phone] or log in to [email or web address].. ?? You can view and manage your care through the patient portal or by using a health care anupam of your choosing. [email or web address] is a website that allows you to securely view your medical information including your hospital discharge summary, office visit summaries, medications and follow-up visits. You can also request appointments, renew medications, and request access to your medical information using a health care anupam of your choosing, or just ask a question. You can enroll at [email or web address] or register during your next office visit. You have been discharged from [facility], Patient Care Unit: D3B. If you have any questions regarding these instructions after you leave, please call us and we will be happy to assist you. [facility] Your Care Team Attending Physician Cuong GONZALEZ, Arlette Discharging Providers Cuong GONZALEZ, Arlette Reason for Admission EMS called by patient, c/o dizziness since this morning. Fall x1. +head strike on floor, no LOC. onwarfarin for hx DVT. denies CP, no SOB. still c/o dizziness. Does not know if he has vertigo hx, poor health historian Your Diagnosis Dizziness Dizziness HTN (hypertension) HLD (hyperlipidemia) Heart failure Type 2 diabetes mellitus History of pulmonary embolism Tests Performed Below is a partial list of the tests performed during your hospitalization. You may have had other tests and procedures not included in this list. Please discuss all test results with your provider. Basic Metabolic Panel CBC COMPLETE CBC WITH DIFF COMPREHENSIVE METABOLIC PANL COVID-19, RSV, and Flu A/B, Rapid PCR GLUCOSE POC High??Sensitivity??Troponin T HOLD BLUE TUBE?-- Results Pending -- HOLD GEL TUBE INR Lactate Level LIPASE CT Abd/Pelvis W/ IV Contrast Only CT Angio Head CT Angio Neck CT Cervical Spine W/O Contrast CT Head/Brain W/O Contrast XR Chest 2 Views Frontal and Lat ? You will be contacted within 72 hours with your results. Primary Care Provider Brandin Valdez MD Advance Directive Health Care Proxy on File Yes - Health Care Proxy No qualifying data available. Discharge Vitals Temperature: 98.5 DegF Height: 168 cm Pulse Rate: 59 bpm Weight: 105 kg Respiratory Rate: 18 br/min Body Mass Index:??37.2 kg/m2??Critical Systolic Blood Pressure:??157 mm Hg??High Body surface area: 2.21 Diastolic Blood Pressure: 65 mm Hg ?? Oxygen Saturation: 97 % ?? Studies Pending All tests and labs ordered during this hospital stay have been completed unless listed below. Please discuss all pending results with your provider listed above in these instructions. ?? Hold Blue Top Tube (HOLD BLUE TUBE) Hold Lavender Tube (BB) INR (PT (INR)) Urinalysis w/hold for Urine Culture What to do next Instructions From Your Doctor ?? -Please follow-up with your PCP for incidental finding sliding ventral hernia and adrenal nodule onhis CT abdomen. -Please make sure you follow-up with Coumadin clinic within 2-3 days to obtain INR levels and adjust warfarin doses accordingly -Please make sure you follow-up with your primary care physician for repeat set of blood work and review of medications. -Please monitor your blood pressure at home daily in the morning and also if you experience symptoms of dizziness. ?? Discharge Orders You Need to Schedule the Following Appointments Follow Up with??Courtney GONZALEZ, Brandin Stahl When?? Where: ?? Discharge Medications MONSTER TAMAYO :1970 Visit Date:04/19/2022 Medications: Please continue your medications until treatment is completed or stopped by your provider. Medications not listed below should be discontinued. Discuss any questions related to medications with your provider. What How Much When Instructions Next Dose Unchanged alpha-lipoic acid (Alpha Lipoic 300 mg oral tablet) 1 tab(s) Oral Twice a day Duration: 30 Days for diabetic neuropathy ;stop if dizziness n/ v ?? resume as prescribed Unchanged Atorvastatin (atorvastatin 40 mg oral tablet) 1 tab(s) Oral Daily 04/21 Unchanged Escitalopram (escitalopram 10 mg oral tablet) 1 tab(s) Oral Daily 04/21 Unchanged HydrOXYzine (hydrOXYzine hydrochloride 25 mg oral tablet) 1 tab(s) Oral Daily at Bedtime as needed for for anxiety 04/20 PM Unchanged Insulin Aspart (Insulin Aspart FlexPen 100 units/ mL injectable solution) INJECT MAX OF 14 UNITS SUBCUTANEOUSLY PER SLIDING SCALE THREE TIMES A DAY ?? resume as prescribed Unchanged Insulin Glargine (Insulin Glargine Inj) 10 unit(s) Subcutaneous Injection Daily resume as prescribed Unchanged Lorazepam (LORazepam 0.5 mg oral tablet) 1 tab(s) Oral Daily at Bedtime as needed for as needed for anxiety (filled 14 tabs still has some) ?? as needed Unchanged Losartan (losartan 25 mg oral tablet) 2 tab(s) Oral Daily 04/21 Unchanged Metformin (metFORMIN 1000 mg oral tablet) 1 tab(s) Oral Daily before breakfast 04/21 Unchanged Multivitamin (Daily Vin oral tablet) 1 tab(s) Oral Daily 04/21 Unchanged Topiramate (topiramate 100 mg oral tablet) 1 tab(s) Oral Twice a day 04/20 PM Unchanged Warfarin (warfarin 3 mg oral tablet) 3 tab(s) Oral Daily Duration: 30 Days dose to be adjusted as recommended by anticoagulation clinic ?? Pickup at [facility] 3 04/21 Unchanged Warfarin (warfarin 5 mg oral tablet) See instructions Take 1 to 2 and 1/ 2 tablets by mouth daily as directed by the Coumadin Clinic ?? Pickup at [facility] 3 Unchanged Warfarin (warfarin 5 mg oral tablet) See instructions Take 1 to 2.5 tablets by mouth daily as directed by the Coumadin Clinic ?? Pharmacy Information [facility] 3: [address] [place], [place] [id number] [phone] Test Results Below is a partial list of the most recent Laboratory test results done prior to this discharge. You may have had other tests and procedures not included in this list. Please discuss all test resultswith your provider. Basic Metabolic Panel (04/20/2022) ???Sodium - 144 mmol/L???Potassium - 4.2 mmol/L???Chloride - 107 mmol/L???Bicarbonate Level - 24 mmol/L???Anion Gap - 13???Glucose Level - 98 mg/dL???BUN - 23 mg/dL???Creatinine-Blood - 1.1 mg/dL???Estimated GFR Creatinine - 87 ML/MIN/1.73 M2???Calcium - 9.4 mg/dL CBC (04/20/2022) ???WBC - 7.7 k/mm3???RBC - 4.88 m/mm3???Hgb - 12.9 Gm/dL???Hct - 39.5 %???MCV - 80.9 femtoliters???MCH - 26.4 pg???MCHC - 32.7 g/dL???Platelet Count - 200 k/mm3???RDW-SD - 42.0 femtoliters???MPV - 11.5 femtoliters???Nucleated RBC (Automated) - 0.0 #/100 WBC'S???Abs. NRBC - 0.0 k/mm3 COMPLETE CBC WITH DIFF (04/19/2022) ???WBC - 8.4 k/mm3???RBC - 4.83 m/mm3???Hgb - 13.0 Gm/dL???Hct - 38.8 %???MCV - 80.3 femtoliters???MCH - 26.9 pg???MCHC - 33.5 g/dL???Platelet Count - 210 k/mm3???RDW-SD - 42.2 femtoliters???MPV - 12.3 femtoliters???Nucleated RBC (Automated) - 0.0 #/100 WBC'S???Abs. NRBC - 0.0 k/mm3???Abs. Neut - 5.7 k/mm3???Abs. Lymph - 1.8 k/mm3???Abs. Oliver - 0.7 k/mm3???Abs. Eo - 0.1 k/mm3???Abs. Baso - 0.0 k/mm3???Neut % - 68.3 %???Lymph % - 21.5 %???Oliver % - 8.0 %???Eos % - 1.6 %???Baso % - 0.4 %???Imm Gran - 0.2 %???Abs. Imm Gran - 0.0 k/mm3 COMPREHENSIVE METABOLIC PANL (04/19/2022) ???Sodium - 139 mmol/L???Potassium - 3.9 mmol/L???Chloride - 105 mmol/L???Bicarbonate Level - 21 mmol/L???Anion Gap - 13???Glucose Level - 88 mg/dL???BUN - 28 mg/dL???Creatinine-Blood - 1.2 mg/dL???Estimated GFR Creatinine - 76 ML/MIN/1.73 M2???Calcium - 9.3 mg/dL???Protein, Total - 6.4 Gm/dL???Albumin - 4.1 Gm/dL???AG Ratio - 1.8???Alkaline Phosphatase - 84 units/L???AST (SGOT) - 15 units/L???ALT (SGPT) - 18 units/L???Bilirubin, Total - 0.6 mg/dL COVID-19, RSV, and Flu A/B, Rapid PCR (04/19/2022) ???Influenza A PCR - NEGATIVE???Influenza B PCR - NEGATIVE???RSV PCR - NEGATIVE???COVID-19 PCR Specimen Source - NASAL???COVID-19 PCR Result - NEGATIVE GLUCOSE POC (04/20/2022) ???Glucose, POC - 149 mg/dL High??Sensitivity??Troponin T (04/20/2022) ???High Sensitivity Troponin (HSTnT) - 50 ng/L HOLD GEL TUBE (04/20/2022) ???Hold Gel Top - SPECIMEN DISCARDED AFTER 1 WEEK INR (04/20/2022) ???INR - 1.7???Protime (PT) - 17.0 seconds Lactate Level (04/19/2022) ???Lactate - 0.8 mmol/L LIPASE (04/19/2022) ???Lipase - 20 units/L Allergies (NKA means No Known Allergies) vancomycin Problems Active Problems??(2) Obese class II?? Tubular adenoma of colon?? Education Materials Below is the list of Educational Leaflet Providered with your Discharge Instructions. Valuables and Belongings I fully understand and agree that [facility] accepts no responsibility for all my [...] of Valuable and Belonging List: With patient Date for Pt to Sign Valuables/Belongings: 04/19/22 21:17:00 ?? Other Discharge Information ? Pulmonary Rehab Status?? Pulmonary Rehab Discharge Status?? [...] are strongly encouraged to quit. Please call [facility] at [phone] or [phone] ([phone]) or log in to [email or web address] for referrals to smoking cessation programs. ?? The National Suicide Prevention Hotline is available 05/11 if you or someone you know needs to find a reason to keep living. By calling 0-188-581-[employer] (4947) you'll be connected to a skilled, trained counselor at a crisis center in your area. INPATIENT DISCHARGE INSTRUCTIONS SIGNATURE PAGE RONI MONSTER Location:[facility] Registration Date and Time:04/19/2022 13:45 EST Primary Care Physician: Courtney GONZALEZ, Brandin Stahl, I MONSTER TAMAYO, have received the above patient education materials/instructions and have verbalized understanding. If ambulance or transport services are being used I further acknowledge being given a choice of service. ?? If you need to contact me, please call me at this number: . Patient/Investment Banking Associate Name: Patient/Investment Banking Associate Signature: Relationship to Patient: Witness Name/Signature: Date: * [facility] , CIS S: TRANSCRIBE Vitaly Webster MD: VERIFY Event Display: Result: Authored Date: [id number] Chest 2 Views Frontal and Lat INDICATION: Fall after possible presyncopal episode. COMPARISON: 03/30/2022 chest x-ray and CT scan FINDINGS: LINES AND TUBES: None. LUNGS AND PLEURA: Stable partly calcified granuloma in the left lateral CP angle. No evidence of edema or pneumonia. No pleural effusion. No pneumothorax. HEART, MEDIASTINUM AND JUDI: Heart is normal in size. Unchanged tortuous descending aorta. BONES AND SOFT TISSUES: No acute abnormality. IMPRESSION: No acute abnormality. WSN: [id number] Ordering Physician: Rubén Bolden Dictated By: Vitaly Webster MD Dictated Date/Time: 04/19/22 4:16 pm Reviewed By: Vitaly Webster MD Signed By: Vitaly Webster MD Signed Date/Time: 04/19/22 4:16 pm Transcribed By: ROBERT Transcribed Date/Time: 04/19/22 4:13 pm Hospital Progress note * Katt Márquez RN: MODIFY, MODIFY, SIGN, VERIFY, PERFORM, MODIFY, MODIFY, MODIFY Event Display: Progress Note Hospital Authored Date: [id number] Patient: MONSTER TAMAYO Age: 51 years Sex: Male : 1970 Associated Diagnoses: None Author: Katt Márquez RN Findings Nursing Data Cardiac Data. 04/19/2022 23:00 EST Cardiovascular Symptoms None Nail Bed Color, Fingers Miston Skin Temperature Upper Extremities Warm Skin Temperature Lower Extremities Warm Heart Sounds S1, S2 Heart Rhythm Regular Cardiovascular Comment denies dizziness Cardiac Rhythm Bundle branch block, Normal sinus rhythm, Sinus bradycardia Capillary Refill < 3 seconds Dorsalis Pedis Pulse, Left Normal Dorsalis Pedis Pulse, Right Normal Cardiovascular WNL except . Respiratory/Pulmonary Data. : Respiratory/Pulmonary Data. 04/19/2022 23:00 EST Respiratory Symptoms None Respiratory effort Unlabored Cough No cough Respiratory pattern Regular Respiratory Treatment(s) Cough and deep breathe Respiratory WNL except . Vital Signs : VITAL SIGNS SECTION 04/20/2022 3:53 EST Early Warning Score 0.00 04/20/2022 3:53 EST Systolic Blood Pressure 188 mm Hg H Diastolic Blood Pressure 93 mm Hg H Blood pressure sites Arm, right 04/20/2022 2:26 EST Early Warning Score 0.00 04/20/2022 2:25 EST Temperature 98.1 DegF Temperature Route Oral Pulse Rate 54 bpm L Respiratory Rate 18 br/min Systolic Blood Pressure 185 mm Hg H Diastolic Blood Pressure 76 mm Hg Blood pressure sites Arm, right Mean Arterial Pressure 112 mm Hg Pulse Pressure 109 mm Hg Oxygen Saturation 98 % Mode of Delivery (Oxygen) Room air 04/20/2022 0:13 EST Early Warning Score 0.00 04/20/2022 0:12 EST Respiratory Rate 18 br/min 04/19/2022 23:33 EST Early Warning Score 0.00 04/19/2022 23:31 EST Early Warning Score 0.00 04/19/2022 23:22 EST Early Warning Score 0.00 04/19/2022 22:50 EST Temperature 98.2 DegF Temperature Route Oral Pulse Rate 78 bpm Respiratory Rate 18 br/min Systolic Blood Pressure 143 mm Hg H Diastolic Blood Pressure 84 mm Hg Blood pressure sites Arm, left Mean Arterial Pressure 104 mm Hg Pulse Pressure 59 mm Hg 04/19/2022 22:34 EST Early Warning Score 0.00 04/19/2022 22:33 EST Temperature 98.2 DegF Temperature Route Oral Pulse Rate, Lying 78 bpm Systolic Blood Pressure, Lying 143 mm Hg Diastolic Blood Pressure, Lying 84 mm Hg Pulse Rate, Sitting 80 bpm Systolic Blood Pressure, Sitting 150 mm Hg (Modified) Diastolic Blood Pressure, Sitting 86 mm Hg Pulse Rate, Standing 91 bpm Systolic Blood Pressure, Standing 101 mm Hg Diastolic Blood Pressure, Standing 60 mm Hg Respiratory Rate 18 br/min Oxygen Saturation 96 % Mode of Delivery (Oxygen) Room air . Narrative/Incidental Asssumed care of patient at approximately 2215, pt able to ambulate to unit bed without difficulty,steady gait, a/ox4, denies dizziness at this time, following commands appropriately, afebrile, VS wnl, except elevated BP 180s, covering provider, [id number], paged and made aware, no new orders received at this time, patient denies s/s. Respirations even and unlabored on room air, LS CTA, pt denies sob. NSR on tele, denies chest pain, +cms and pps to all extremities, no edema. ABD soft, nontender +BSto all quads, pt denies N/V/D, tolerating PO intake without difficulty. Voiding in urinal, CYU, denies dysuria. Educated on plan of care and call gauthier use, high fall risk precautions in place, call gauthier within reach. See CIS for full assessment data and flow sheets, hourly rounding maintained, willcontinue monitoring as needed. . CT Cervical spine WO contrast * [facility] , CIS S: TRANSCRIBE Jim GONZALEZ, Paolo D: VERIFY Event Display: Result: Authored Date: [id number] CT Head/Brain W/O Contrast, CT Cervical Spine W/O Contrast CLINICAL INDICATION: Dizziness causing fall. Struck head on floor. Anticoagulation therapy. Poor historian. PRIOR EXAMS: 02/20/2022. TECHNIQUE: Incremental CT without contrast through the head was formatted in axial and coronal plane. Spiral CT without contrast through the cervical spine was formatted in 3 planes. Automatic tube modulation was used for the cervical spine and iterative dose reconstruction was used for both the head and cervical spine to optimize scan parameters and image quality. RADIATION DOSE PARAMETERS: CTDIvol Body: 18.00 mGy, DLP Body: 491 mGy*cm. CTDIvol Head: 39.90 mGy, DLP Head: 671 mGy*cm. FINDINGS: BRAIN There is no infarct. There is no intracerebral hemorrhage. There is no mass. VENTRICLES AND SULCI: The ventricles and sulci are symmetrical and normal. WHITE MATTER: Small amount of white matter abnormality to be due to small vessel disease. EXTRA AXIAL SPACES: There is no abnormal epidural, subdural, or subarachnoid blood or fluid. SKULL: There is no skull fracture.. PARANASAL SINUSES: Left maxillary sinus cyst. Otherwise clear. TEMPORAL BONES: The mastoid air cells are clear, as are the middle ear cavities. CERVICAL VERTEBRAL BODIES: There is no fracture. There is no focal bony lesion.. ALIGNMENT OF CERVICAL SPINE: The cervical vertebral bodies are in normal alignment.. CERVICAL DEGENERATIVE CHANGES: There are no degenerative changes. LUNG APICES: No pneumothorax. IMPRESSION: HEAD 1. No acute intracranial abnormality. 2. No skull fracture. CERVICAL SPINE: 1. There is no fracture. There is no focal bony lesion. 2. Normal alignment. 3. No degenerative changes. WSN: [id number] Ordering Physician: Rubén Bolden Dictated By: Paolo Fernandez MD Dictated Date/Time: 04/19/22 4:45 pm Reviewed By: Paolo Fernandez MD Signed By: Paloo Fernandez MD Signed Date/Time: 04/19/22 4:45 pm Transcribed By: ROBERT Transcribed Date/Time: 04/19/22 4:[address] Head WO contrast * [facility] , CIS S: TRANSCRIBE Paolo Fernandez MD: VERIFY Event Display: Result: Authored Date: [id number] CT Head/Brain W/O Contrast, CT Cervical Spine W/O Contrast CLINICAL INDICATION: Dizziness causing fall. Struck head on floor. Anticoagulation therapy. Poor historian. PRIOR EXAMS: 02/20/2022. TECHNIQUE: Incremental CT without contrast through the head was formatted in axial and coronal plane. Spiral CT without contrast through the cervical spine was formatted in 3 planes. Automatic tube modulation was used for the cervical spine and iterative dose reconstruction was used for both the head and cervical spine to optimize scan parameters and image quality. RADIATION DOSE PARAMETERS: CTDIvol Body: 18.00 mGy, DLP Body: 491 mGy*cm. CTDIvol Head: 39.90 mGy, DLP Head: 671 mGy*cm. FINDINGS: BRAIN There is no infarct. There is no intracerebral hemorrhage. There is no mass. VENTRICLES AND SULCI: The ventricles and sulci are symmetrical and normal. WHITE MATTER: Small amount of white matter abnormality to be due to small vessel disease. EXTRA AXIAL SPACES: There is no abnormal epidural, subdural, or subarachnoid blood or fluid. SKULL: There is no skull fracture.. PARANASAL SINUSES: Left maxillary sinus cyst. Otherwise clear. TEMPORAL BONES: The mastoid air cells are clear, as are the middle ear cavities. CERVICAL VERTEBRAL BODIES: There is no fracture. There is no focal bony lesion.. ALIGNMENT OF CERVICAL SPINE: The cervical vertebral bodies are in normal alignment.. CERVICAL DEGENERATIVE CHANGES: There are no degenerative changes. LUNG APICES: No pneumothorax. IMPRESSION: HEAD 1. No acute intracranial abnormality. 2. No skull fracture. CERVICAL SPINE: 1. There is no fracture. There is no focal bony lesion. 2. Normal alignment. 3. No degenerative changes. WSN: [id number] Ordering Physician: Rubén Bolden Dictated By: Paolo Fernandez MD Dictated Date/Time: 04/19/22 4:45 pm Reviewed By: Paolo Fernandez MD Signed By: Paolo Fernandez MD Signed Date/Time: 04/19/22 4:45 pm Transcribed By: ROBERT Transcribed Date/Time: 04/19/22 4:[address] Abdomen and Pelvis W contrast IV * [facility] , CIS S: TRANSCRIBE Macey Jordan MD O: VERIFY Event Display: Result: Authored Date: [id number] CT Abd/Pelvis W/ IV Contrast Only Hx of Present Illness: EMS called by patient, c o dizziness since this am, pt reported that he had and hit his . head strike on floor, no LOC. on warfarin for hx DVT per EMS pt is poor health historian; Reason: Other:; LLQ abdominal pain; Clinical Question(s): Diverticulitis; Order Comment: TECHNIQUE: Spiral CT through the abdomen and pelvis with IV contrast formatted in 3 planes. 100 cc of Omnipaque 300 was administered intravenously. This study was performed without oral contrast. Weight-based protocol using automatic tube modulation was used to optimize exposure parameters. CTDIvol Body: 15.40 mGy, DLP Body: 869 mGy*cm. COMPARISON: 11/20/2006. FINDINGS: Personal Shopper View Findings, Lines and Tubes: None. Visualized Chest: There is diffuse prominence of the left ventricular wall. There are mild dependent changes of the imaged lung bases. There are coronary artery calcifications. There is a 1.3 cm nodule with a central coarse calcification in the left lung base, unchanged when compared to the prior exam. Diaphragm: Unremarkable. Liver: Unremarkable. Gallbladder: Absent consistent with prior cholecystectomy. Bile ducts: No biliary ductal dilation. Spleen: Unremarkable. Pancreas: Unremarkable. Adrenal glands: There is an indeterminate 1.7 cm left adrenal nodule. Kidneys and ureters: There are subcentimeter hypodense right renal lesions which are too small to further characterize. Bladder: Unremarkable. Reproductive organs: Unremarkable. Stomach, small bowel, and large bowel: Unremarkable. Appendix: Not seen, but no evidence of appendicitis. Peritoneum and retroperitoneum: There is no evidence of free air or free fluid in the abdomen or pelvis. Lymph nodes: No enlarged lymph nodes. Blood vessels: Mild vascular calcifications but no aneurysm. Abdominal and pelvic wall: There are fat filled small midline ventral abdominal wall hernias. Thereare irregular soft tissue attenuation lesions with central fat in the anterior abdominal wall likely secondary to abdominal injections. Bones: There are multilevel discogenic degenerative changes of the thoracolumbar spine with extensive osteophytosis. There is a right pars defects at L5. IMPRESSION: 1. There is no evidence of acute abdominal or pelvic pathology. 2. Again demonstrated is prominence of the wall of the left ventricle. Clinical correlation is recommended. 3. Multiple chronic findings as detailed above. WSN: [id number] Ordering Physician: Real Steven Dictated By: Macey Jordan MD Dictated Date/Time: 04/19/22 7:57 pm Reviewed By: Macey Jordan MD Signed By: Macey Jordan MD Signed Date/Time: 04/19/22 7:57 pm Transcribed By: ROBERT Transcribed Date/Time: 04/19/22 7:35 pm CTA Neck vessels W contrast IV * [facility] , CIS S: TRANSCRIBE Vicki Ray MD: VERIFY Event Display: Result: Authored Date: [id number] CT Angio Head, CT Angio Neck Hx of Present Illness: EMS called by maryam akbar dizziness since this am, pt reported that he had and hit his . head strike on floor, no LOC. on warfarin for hx DVT per EMS pt is poor health historian; Reason: Other:; Neuro deficit, acute, stroke suspected; Clinical Question(s): Other:; Hematoma Aneurysm; Order Comment: / Other: TECHNIQUE: CT angiogram [...] optimize exposure parameters. RADIATION DOSE PARAMETERS: CTDIvol Body: 16.07 mGy, DLP Body: 789 mGy*cm. COMPARISON: Noncontrast CT head performed concurrently. FINDINGS: CTA OF THE NECK: Arch: There is a three vessel aortic arch. The origins of the supra aortic vessels are patent. Right carotid system: The common carotid and cervical internal carotid arteries are patent. There is calcified atherosclerotic plaque at the carotid bifurcation, but no ICA stenosis (0%) by NASCET criteria. There is no dissection or aneurysm. Left carotid system: The common carotid and cervical internal carotid arteries are patent. There iscalcified atherosclerotic plaque at the carotid bifurcation, but no ICA stenosis (0%) by NASCET criteria. There is no dissection or aneurysm. There is a co-dominant vertebral artery system. Right vertebral: No significant stenosis. No evidence of dissection or aneurysm. Left vertebral: No significant stenosis. No evidence of dissection or aneurysm. Other: Soft tissues and bones: Multiple palatine tonsilloliths are noted. No evidence of lymphadenopathy or mass. The thyroid is unremarkable. Visualized lungs are mildly blurred by motion artifact, withoutsignificant superimposed airspace opacity. Multilevel degenerative changes of the spine are noted, without acute osseous abnormality. CTA OF THE HEAD: Anterior circulation: Bilateral intracranial ICAs demonstrate atherosclerotic calcification, without stenosis. Bilateral MAURI and MCA branches are patent. Right A1 segment is mildly hypoplastic, with patent anterior communicating artery, a normal variant. There is no significant stenosis, proximal cutoff, aneurysm, or vascular malformation. Posterior circulation: Bilateral vertebral arteries, the basilar artery, and bilateral PICA, AICA, SCA, and TECHNICAL EDUCATION TEACHER branches are patent. There is no significant stenosis, proximal cutoff, aneurysm, or vascular malformation. Veins: Major dural venous sinuses are patent. Other: Soft tissues and bones: No midline shift or effacement of the basal cisterns. No space-occupying hemorrhage. No territorial loss of yin-white matter differentiation. Orbits are unremarkable. Mucus retention cysts are in the left maxillary sinus. Mild scattered mucosal thickening is seen in the paranasal sinuses, with no fluid levels. Mastoids are clear. Multiple dental caries and periapical lucencies are present. IMPRESSION: No proximal occlusion or high grade stenosis in the major arteries of the head and neck. A similar preliminary report was provided by [facility]. WSN: [id number] Ordering Physician: Rubén Bolden Dictated By: Vciki Ray MD Dictated Date/Time: 04/20/22 7:10 am Reviewed By: Vicki Ray MD Signed By: Vicki Ray MD Signed Date/Time: 04/20/22 7:10 am Transcribed By: ROBERT Transcribed Date/Time: 04/20/22 7:08 am CTA Head vessels W contrast IV * [facility] , CIS S: TRANSCRIBE Vicki Ray MD: VERIFY Event Display: Result: Authored Date: [id number] CT Angio Head, CT Angio Neck Hx of Present Illness: EMS called by patient, c o dizziness since this am, pt reported that he had and hit his . head strike on floor, no LOC. on warfarin for hx DVT per EMS pt is poor health historian; Reason: Other:; Neuro deficit, acute, stroke suspected; Clinical Question(s): Other:; Hematoma Aneurysm; Order Comment: / Other: TECHNIQUE: CT angiogram [...] optimize exposure parameters. RADIATION DOSE PARAMETERS: CTDIvol Body: 16.07 mGy, DLP Body: 789 mGy*cm. COMPARISON: Noncontrast CT head performed concurrently. FINDINGS: CTA OF THE NECK: Arch: There is a three vessel aortic arch. The origins of the supra aortic vessels are patent. Right carotid system: The common carotid and cervical internal carotid arteries are patent. There is calcified atherosclerotic plaque at the carotid bifurcation, but no ICA stenosis (0%) by NASCET criteria. There is no dissection or aneurysm. Left carotid system: The common carotid and cervical internal carotid arteries are patent. There iscalcified atherosclerotic plaque at the carotid bifurcation, but no ICA stenosis (0%) by NASCET criteria. There is no dissection or aneurysm. There is a co-dominant vertebral artery system. Right vertebral: No significant stenosis. No evidence of dissection or aneurysm. Left vertebral: No significant stenosis. No evidence of dissection or aneurysm. Other: Soft tissues and bones: Multiple palatine tonsilloliths are noted. No evidence of lymphadenopathy or mass. The thyroid is unremarkable. Visualized lungs are mildly blurred by motion artifact, withoutsignificant superimposed airspace opacity. Multilevel degenerative changes of the spine are noted, without acute osseous abnormality. CTA OF THE HEAD: Anterior circulation: Bilateral intracranial ICAs demonstrate atherosclerotic calcification, without stenosis. Bilateral MAURI and MCA branches are patent. Right A1 segment is mildly hypoplastic, with patent anterior communicating artery, a normal variant. There is no significant stenosis, proximal cutoff, aneurysm, or vascular malformation. Posterior circulation: Bilateral vertebral arteries, the basilar artery, and bilateral PICA, AICA, SCA, and TECHNICAL EDUCATION TEACHER branches are patent. There is no significant stenosis, proximal cutoff, aneurysm, or vascular malformation. Veins: Major dural venous sinuses are patent. Other: Soft tissues and bones: No midline shift or effacement of the basal cisterns. No space-occupying hemorrhage. No territorial loss of yin-white matter differentiation. Orbits are unremarkable. Mucus retention cysts are in the left maxillary sinus. Mild scattered mucosal thickening is seen in the paranasal sinuses, with no fluid levels. Mastoids are clear. Multiple dental caries and periapical lucencies are present. IMPRESSION: No proximal occlusion or high grade stenosis in the major arteries of the head and neck. A similar preliminary report was provided by [facility]. WSN: [id number] Ordering Physician: Rubén Bolden Dictated By: Vicki Ray MD Dictated Date/Time: 04/20/22 7:10 am Reviewed By: Vicki Ray MD Signed By: Vicki Ray MD Signed Date/Time: 04/20/22 7:10 am Transcribed By: ROBERT Transcribed Date/Time: 04/20/22 7:08 am Patient Care team information Care Team Personnel Name: Oziel Tapia RN Position: [facility] RN Member Role: Primary Care Nurse Name: Aria Patel RN Position: [facility] AMB Nurse Member Role: Primary Care Nurse Name: Summer Donis Position: [facility] RN Member Role: Primary Care Nurse Name: Yaneth Gray RN Position: [facility] RN Member Role: Primary Care Nurse Name: Sagrario Eden Position: [facility] RN Member Role: Primary Care Nurse Name: Brandin Valdez MD Position: [facility] Physician (General Medicine) Member Role: PCP Address: Address: [address] [place] [id number]- Name: Taras Yuen RN Position: [facility] RN Member Role: Primary Care Nurse Name: Aditi Clifton RN Position: [facility] RN Member Role: Primary Care Nurse Name: Fatemeh Saldaña PharmD Position: [facility] Associate Professional Member Role: [employer] Provider Address: Address: [address] [place], [place] [address] [address]- Name: Fatemeh Hernandez Position: S Outreach Member Role: [employer] Physician Name: Katt Márquez RN Position: [facility] RN Member Role: Primary Care Nurse Name: Nabeel Agarwal MD Position: [facility] Renal MD Member Role: Lifetime Consulting Physician Address: Address: [address] [facility] [place] [address]- Name: Michaela Funes RN Position: [facility] RN Member Role: Primary Care Nurse Name: Arabella Mcghee Position: [facility] Outreach Member Role: Lifetime Consulting Physician Name: Tangela Segovia LPN Position: [facility] RN Member Role: Primary Care Nurse Name: Silvia VALENTIN Attending Position: [facility] ED Medicine MD Name: Ronit Mcconnell RN Position: [facility] ED RN W/OE and Tasks Member Role: Patient Care Provider Name: Real North Position: [facility] Associate Professional Member Role: ED Physician After School Driver Address: Address: [address] [facility] [place] [address]- Name: Glenda Naranjo RN Position: [facility] ED RN W/OE and Tasks Member Role: Patient Care Provider Name: Glenda Barillas Position: [facility] ED TA [facility] Member Role: House Wrecker Care Team Related Persons Name: HANS TAMAYO Address: home [address] [place] [address] Name: CHATO PARKS Address: home [address] [place] [address]
--- OUTSIDE RECORDS SUMMARY | 2023-02-07 20:13 | XMS_ITS | Continuity of Care Document ---
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 Name Role Phone Brandin Valdez MD Primary Care Physician Encounter [facility] Date(s): 04/04/22 - 05/04/22 [facility] Care [address] [place], [place] [address] Allergies, Adverse Reactions, Alerts Substance Reaction Severity [...] 02/18/22 7:13:00 EST, Route to Pharmacy Electronically, [facility], Partial fill upon patient request [...] 0 Refills, Maintenance, 04/20/22 15:26:00 EST, Tablet, [facility], Partial fill upon patient request if the prescription is for... Start Date: 04/20/22 Stop Date: 05/20/22 Status: Ordered warfarin 5 mg oral tablet See Instructions, Take 1 to 2.5 tablets by mouth daily as directed by the [facility], # 225 tablet, 1 Refills, Maintenance, 04/13/22 17:25:00 EST, Tablet, [facility]/pharmacy #[id number], Partial fill upon patient request if the prescription is for a schedule... Start Date: 04/13/22 Status: Ordered warfarin 5 mg oral tablet See Instructions, Take 1 to 2 and 1/2 tablets by mouth daily as directed by the [facility], # 30 tablet, 4 Refills, Maintenance, 04/20/22 15:25:00 EST, Tablet, [facility], Partial fill upon patient [...] Team Personnel Name: Oziel Tapia RN Position: [facility] RN Member Role: Primary Care Nurse Name: Aria Patel RN Position: [facility] [place]ALI Nurse Member Role: Primary Care Nurse Name: Summer Donis Position: [facility] RN Member Role: Primary Care Nurse Name: Yaneth Gray RN Position: [facility] RN Member Role: Primary Care Nurse Name: Sagrario Eden Position: [facility] RN Member Role: Primary Care Nurse Name: Brandin Valdez MD Position: [facility] Physician (General Medicine) Member Role: PCP Address: Address: [address] [place] [address] Name: Taras Yuen RN Position: [facility] RN Member Role: Primary Care Nurse Name: Aditi Clifton RN Position: [facility] RN Member Role: Primary Care Nurse Name: Fatemeh Saldaña PharmD Position: [facility] Associate Professional Member Role: Lifetime Consulting Provider Address: Address: [address] [place] [address] [place] [address]- [place] Name: Fatemeh Hernandez Position: S Outreach Member Role: Lifetime Consulting Physician Name: Katt Márquez RN Position: S RN Member Role: Primary Care Nurse Name: Nabeel Agarwal MD Position: [facility] Renal MD Member Role: Lifetime Consulting Physician Address: Address: [address] [facility] [address] [facility], [place] [address]- [place] Name: Michaela Funes RN Position: S RN Member Role: Primary Care Nurse Name: Arabella Mcghee Position: S Outreach Member Role: Lifetime Consulting Physician Name: Tangela Segovia LPN Position: S RN Member Role: Primary Care Nurse Care Team Related Persons Name: HANS TAMAYO Address: home [address] [place] [address] Name: CHATO PARKS Address: [address] [place] [address]
--- OUTSIDE RECORDS SUMMARY | 2023-02-07 20:13 | XMS_ITS | Continuity of Care Document ---
Author Name Unknown Organization [facility] Address [address] [facility], [address] d Floor, [address] [place] [address]- Care Team Providers Care Digital Media Associate Name Role Phone Brandin Valdez MD Primary Care Physician [phone] Encounter [facility] Date(s): 05/30/22 - 06/29/22 [facility] [address], [address], [address] [place] [address] Allergies, Adverse Reactions, Alerts Substance Reaction Severity [...] Tablet, ; Start Date: 12/27/21 Status: Ordered carvedilol 6.25 mg oral tablet 6.25 mg, 1, tablet, By Mouth, 2 times a day, # 180 tablet, Refills 0, Maintenance, 05/26/22 6:05:00EST, Partial fill upon patient request if the prescription is for a schedule II opioid drug. Start Date: 05/26/22 Status: Ordered cefpodoxime 200 mg oral tablet 1 tablet = 200 mg, By Mouth, Every 12 hours, for 10 days, # 20 tablet, 0 Refills, Acute 07/04/22 12:54:00 EDT, 06/24/22 12:54:00 EDT, Tablet, [facility]/pharmacy #[id number], Partial fill upon patient request if the prescription is for a schedule II opioid drug.,... Start Date: 06/24/22 Stop Date: 07/04/22 Status: Ordered Daily Vin oral tablet 1 tablet, By Mouth, Daily, Maintenance, 02/20/22 12:52:00 EST, Tablet, ; Start Date: 02/20/22 Status: Ordered escitalopram 10 mg oral tablet 1 tablet = 10 mg, By Mouth, Daily, 0 Refills, Maintenance, 12/27/21 8:22:00 EDT, Tablet, ; Start Date: 12/27/21 Status: Ordered furosemide 40 mg oral tablet 40 mg, 1, tablet, By Mouth, Daily, # 30 tablet, Refills 0, Maintenance, 05/26/22 6:05:00 EST, Partial fill upon patient request if the prescription is for a schedule II opioid drug. Start Date: 05/26/22 Status: Ordered hydrOXYzine hydrochloride 25 mg oral [...] 02/18/22 7:13:00 EST, Route to Pharmacy Electronically, [facility], Partial fill upon patient [...] Tablet, ; Start Date: 02/20/22 Status: Ordered Walker See Instructions, # 1 each, Maintenance, One, 05/26/22 16:32:00 EST, Supply Start Date: 05/26/22 Status: Ordered warfarin 3 mg oral tablet 3 tablet = 9 mg, By Mouth, Daily, dose to be adjusted as recommended by anticoagulation clinic, # 30 tablet, 0 Refills, Maintenance, 04/20/22 15:26:00 EST, Tablet, [facility], Partial fill upon patient request if the prescription is for... Start Date: 04/20/22 Stop Date: 05/20/22 Status: Ordered warfarin 5 mg oral tablet See Instructions, Take 1 to 2.5 tablets by mouth daily as directed by the [facility], # 225 tablet, 1 Refills, Maintenance, 04/13/22 17:25:00 EST, Tablet, [facility]/pharmacy #[id number], Partial fill upon patient request if the prescription is for a schedule... Start Date: 04/13/22 Status: Ordered warfarin 5 mg oral tablet See Instructions, Take 1 to 2 and 1/2 tablets by mouth daily as directed by the [facility], # 30 tablet, 4 Refills, Maintenance, 04/20/22 15:25:00 EST, Tablet, [facility], Partial fill upon patient [...] Team Personnel Name: Oziel Tapia RN Position: [facility] RN Member Role: Primary Care Nurse Name: Aria Patel RN Position: [facility] AMB Nurse Member Role: Primary Care Nurse Name: Summer Donis Position: S RN Member Role: Primary Care Nurse Name: Yaneth Gray RN Position: [facility] RN Member Role: Primary Care Nurse Name: Sagrario Eden Position: [facility] RN Member Role: Primary Care Nurse Name: Brandin Valdez MD Position: [facility] Physician (General Medicine) Member Role: PCP Address: Address: [address] [place] [address]- [place] Name: Taras Yuen RN Position: [facility] RN Member Role: Primary Care Nurse Name: Aditi Clifton RN Position: [facility] RN Member Role: Primary Care Nurse Name: Fatemeh Saldaña PharmD Position: [facility] Associate Professional Member Role: Lifetime Consulting Provider Address: Address: [address] [place] [address]- [place] Name: Fatemeh Hernandez Position: [facility] Outreach Member Role: Lifetime Consulting Physician Name: Katt Márquez RN Position: [facility] RN Member Role: Primary Care Nurse Name: Nabeel Agarwal MD Position: [facility] Renal MD Member Role: Lifetime Consulting Physician Address: Address: [address] [place] [address] [address] [facility] [place] [address]- [place] Name: Michaela Funes RN Position: [facility] RN Member Role: Primary Care Nurse Name: Arabella Mcghee Position: [facility] Outreach Member Role: Lifetime Consulting Physician Name: Tangela Segovia LPN Position: [facility] RN Member Role: Primary Care Nurse Care Team Related Persons Name: HANS TAMAYO Address: [address] [place] [address] Name: CHATO PARKS Address: [address] [address]
--- OUTSIDE RECORDS SUMMARY | 2023-02-07 20:13 | XMS_ITS | Continuity of Care Document ---
Author Name Unknown Organization [facility] ter Address [address] [place] [address]- Care Team Providers Care Hydrology Professor Name Role Phone Brandin Valdez MD Primary Care Physician [place] [facility] [place]/28/22 - 01/31/[address] [address]- Encounter Diagnosis Hypertensive emergency(Final) - 01/28/22 Hematoma(Final) - 01/28/22 Shortness of breath(Final) - 01/28/22 Constipated(Final) - 01/28/22 Nasal congestion(Final) - 01/28/22 SHADIA (acute kidney injury)(Final) - 01/28/22 Troponin I above reference range(Final) - 01/28/22 T wave inversion in EKG(Final) - 01/28/22 Discharge Disposition: A-D/C Home Attending Physician: Leah Demarco MD Admitting Physician: Adolfo Hutson MD Referring Physician: Not on Staff, Referring [...] opioid drug. Start Date: 01/01/22 Status: Ordered carvedilol 25 mg oral tablet 25 mg, Tablet, By Mouth, 01/31/22 9:00:00 EDT Start Date: 01/31/22 Stop Date: 01/31/22 Status: Completed escitalopram 10 mg oral tablet 1 tablet [...] Symptoms, 0 Refills, Maintenance, 01/29/22 0:10:00 EDT, [facility], Partial fill upon patient request if the [...] 1 Refills, Maintenance, 01/18/22 12:56:00 EDT, Tablet, [facility]/pharmacy #[id number], Partial fill upon patient request [...] Exam Date Time Procedure Performing Provider Status 01/28/22 3:27 PM Chest 2 Views Frontal and Lat Yaneth Dior; Arslan (Verified) Notes: (Chest 2 Views Frontal and Lat) Reason For Exam: Shortness of Breath RESULT: Chest 2 Views Frontal and Lat Chest 2 Views Frontal and Lat Hx of Present Illness: pt presents from work with increased weakness and fainting. pt found slumpedover at work and EMS called. pt found to be hypertensive upon arrival.; Reason: Shortness of Breath; Clinical Question(s): CHF COMPARISON: 01/01/2022 FINDINGS: LINES AND TUBES: None. LUNGS AND PLEURA: There is mild prominence of the central pulmonary vasculature, similar to prior. The lungs are symmetrically aerated and clear. No effusion or pneumothorax. HEART, MEDIASTINUM AND JUDI: Cardiac silhouette is mildly enlarged, allowing for AP technique. Normal mediastinal and hilar contour. BONES AND SOFT TISSUES: No acute abnormality. IMPRESSION: Stable mild prominence of the central pulmonary vasculature may represent mild chronic pulmonary venous congestion. Mild cardiomegaly. WSN: [id number] Ordering Physician: Yesenia Diez Dictated By: Glenda Dumont MD Dictated Date/Time: 01/28/22 3:32 pm Reviewed By: Glenda Dumont MD Signed By: Glenda Dumont MD Signed Date/Time: 01/28/22 3:32 pm Transcribed By: ROBERT Transcribed Date/Time: 01/28/22 3:29 pm Vital Signs Most recent to oldest [Reference Range]: 1 2 3 Height 168 cm (01/31/22 3:45 AM) 168 cm (01/30/22 9:25 PM) 168 cm (01/30/22 1:53 PM) Weight 119.8 kg (01/31/22 3:45 AM) 118.9 kg (01/30/22 1:51 AM) 120.6 kg (01/28/22 10:41 PM) Oxygen Saturation [94-100 %] 94 % (01/31/22 2:00 PM) 97 % (01/31/22 8:00 AM) 98 % (01/31/22 3:45 AM) Pulse Rate [55-90 bpm] 59 bpm (01/31/22 2:00 PM) 60 bpm (01/31/22 9:09 AM) 64 bpm (01/31/22 8:00 AM) Body Mass Index [18.5-24.99 kg/m2] 42.45 kg/m2 *>HHI* (01/31/22 3:45 AM) 42.13 kg/m2 *>HHI* (01/30/22 1:51 AM) 42.73 kg/m2 *>HHI* (01/28/22 10:41 PM) Blood Pressure [90-138/55-84 mm Hg] 146/72mm Hg *H* (01/31/22 2:00 PM) 123/70mm Hg (01/31/22 9:09 AM) 120/71mm Hg (01/31/22 8:00 AM) Respiratory Rate [16-30 br/min] 16 br/min (01/31/22 2:00 PM) 20 br/min (01/31/22 8:00 AM) 18 br/min (01/31/22 3:45 AM) Temperature [96.8-100.4 DegF] 98.0 DegF (01/31/22 2:00 PM) 98.0 DegF (01/31/22 8:00 AM) 98 DegF (01/31/22 3:45 AM) Mode of Delivery (Oxygen) Room air (01/31/22 2:00 PM) Room air (01/31/22 8:00 AM) Room air (01/31/22 3:45 AM) Blood pressure sites Arm, right (01/31/22 2:00 PM) Arm, left (01/31/22 8:00 AM) Arm, right (01/31/22 3:45 AM) Temperature Route Oral (01/31/22 2:00 PM) Oral (01/31/22 8:00 AM) Oral (01/31/22 3:45 AM) Dry Weight 120.6 kg (01/28/22 10:41 PM) Weight Obtained Via Bed scale (01/31/22 3:45 AM) Bed scale (01/30/22 1:51 AM) Note * [facility] , CIS S: TRANSCRIBE Tim GONZALEZ , Glenda Stahl: VERIFY Event Display: Result: Authored Date: Chest 2 Views Frontal and Lat Hx of Present Illness: pt presents from work with increased weakness and fainting. pt found slumpedover at work and EMS called. pt found to be hypertensive upon arrival.; Reason: Shortness of Breath; Clinical Question(s): CHF COMPARISON: 01/01/2022 FINDINGS: LINES AND TUBES: None. LUNGS AND PLEURA: There is mild prominence of the central pulmonary vasculature, similar to prior. The lungs are symmetrically aerated and clear. No effusion or pneumothorax. HEART, MEDIASTINUM AND JUDI: Cardiac silhouette is mildly enlarged, allowing for AP technique. Normal mediastinal and hilar contour. BONES AND SOFT TISSUES: No acute abnormality. IMPRESSION: Stable mild prominence of the central pulmonary vasculature may represent mild chronic pulmonary venous congestion. Mild cardiomegaly. WSN: [id number] Ordering Physician: Yesenia Diez Dictated By: Glenda Dumont MD Dictated Date/Time: 01/28/22 3:32 pm Reviewed By: Glenda Dumont MD Signed By: Glenda Dumont MD Signed Date/Time: 01/28/22 3:32 pm Transcribed By: ROBERT Transcribed Date/Time: 01/28/22 3:29 pm Patient Care team information Personnel Name: Brandin Valdez MD Address: Address: [address] [place] [address]
--- OUTSIDE RECORDS SUMMARY | 2023-02-07 20:14 | XMS_ITS | Continuity of Care Document ---
Author Name Unknown Organization [facility] Address [address] [place] [address] [place] [address]- Care Team Providers Care Telegraphic Instrument Supervisor Name Role Phone Brandin Valdez MD Primary Care Physician Encounter [facility] Date(s): 11/29/21 - 12/29/21 [facility] [address] [place] [address]- Allergies, Adverse Reactions, Alerts Substance Reaction Severity Status vancomycin Active Medications amoxicillin 500 mg oral capsule 1 capsule = 500 mg, By Mouth, Every 12 hours, 0 Refills, Maintenance, 12/27/21 8:23:00 EDT, Capsule, Partial fill upon patient request if the prescription is for a schedule II opioid drug. Start Date: 12/27/21 Status: Ordered atorvastatin 40 mg oral tablet 1 tablet = 40 mg, By Mouth, Daily, # 90 tablet, 0 Refills, Maintenance, 12/27/21 8:23:00 EDT, Tablet, Partial fill upon patient request if the prescription is for a schedule II opioid drug. Start Date: 12/27/21 Status: Ordered clonazePAM 0.5 mg oral tablet TAKE 1 TABLET BY MOUTH AT BEDTIME DAILY FOR 10 DAYS Start Date: 12/27/21 Status: Ordered escitalopram 10 mg oral tablet 1 tablet = 10 mg, By Mouth, Daily, # 90 tablet, 0 Refills, Maintenance, 12/27/21 8:22:00 EDT, Tablet, Partial fill upon patient request if the prescription is for a schedule II opioid drug. Start Date: 12/27/21 Status: Ordered hydrALAZINE 100 mg oral tablet TAKE 1 TABLET BY MOUTH THREE TIMES A DAY WITH FOOD FOR 90 DAYS Start Date: 12/27/21 Status: Ordered hydrOXYzine hydrochloride 25 mg oral tablet 1 tablet = 25 mg, By Mouth, 4 times a day, PRN for anxiety, # 40 tablet, 0 Refills, Maintenance, 12/27/21 8:24:00 EDT, Tablet, Partial fill upon patient request if the prescription is for a schedule II opioid drug. Start Date: 12/27/21 Status: Ordered Lantus Solostar Pen 100 units/mL subcutaneous solution INJECT 58 UNITS SUBCUTANEOUSLY ONCE DAILY Start Date: 12/27/21 Status: Ordered metFORMIN 1000 mg oral tablet TAKE 1 TABLET BY MOUTH EVERY DAY WITH A MEAL Start Date: 12/27/21 Status: Ordered Problem List Condition Effective Dates Status Health Status Inform ant Severe obesity(Confirmed) Active Care Team Personnel Name: Brandin Valdez MD Address: [address] [place] [address]
--- OUTSIDE RECORDS SUMMARY | 2023-02-07 20:14 | XMS_ITS | Continuity of Care Document ---
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.] Team Personnel Name: Oziel Tapia RN Position: [facility] RN Member Role: Primary Care Nurse Name: Aria Patel RN Position: [facility] AMB Nurse Member Role: Primary Care Nurse Name: Summer Donis Position: [facility] RN Member Role: Primary Care Nurse Name: Yaneth Gray RN Position: [facility] RN Member Role: Primary Care Nurse Name: Sagrario Eden Position: [facility] RN Member Role: Primary Care Nurse Name: Brandin Valdez MD Position: [facility] Physician (General Medicine) Member Role: PCP Address: Address: [address] [place] [address] Name: Taras Yuen RN Position: [facility] RN Member Role: Primary Care Nurse Name: Lashaun Baeza RN Position: [facility] RN Member Role: Primary Care Nurse Name: Aditi Clifton RN Position: [facility] RN Member Role: Primary Care Nurse Name: Fatemeh Saldaña PharmD Position: [facility] Associate Professional Member Role: Lifetime Consulting Provider Address: Address: [address] [place] [address] [place] [address]- Name: Fatemeh Hernandez Position: S Outreach Member Role: Lifetime Consulting Physician Name: Clair Beckwith RN Position: S RN Member Role: Primary Care Nurse Name: Nabeel Agarwal MD Position: [facility] Renal MD Member Role: Lifetime Consulting Physician Address: Address: [address] [facility] [address] [facility], [place] [address]- Name: Michaela Funes RN Position: S RN Member Role: Primary Care Nurse Name: Arabella Mcghee Position: [facility] Outreach Member Role: Lifetime Consulting Physician Name: Tangela Segovia LPN Position: S RN Member Role: Primary Care Nurse Care Team Related Persons Name: HANS TAMAYO Address: [address] [place] [address] Name: CHATO PARKS Address: [address] [place] [address]
--- OUTSIDE RECORDS SUMMARY | 2023-02-07 20:14 | XMS_ITS | Continuity of Care Document ---
Author Name Unknown Organization [facility] ter Address [address] [place] [id number] Care Team Providers Care Battery Charger Conveyor Line Name Role Phone Brandin Valdez MD Primary Care Physician Encounter [facility] [place] ACCT R [id number] Date(s): 07/01/22 - 07/02/[address] [address]- Discharge Disposition: A-D/C Home Attending Physician: Emir Shukla MD Admitting Physician: Keila Renteria MD Referring Physician: Not on Staff, Referring [...] opioid drug. Start Date: 05/26/22 Status: Ordered carvedilol 6.25 mg oral tablet 6.25 mg, Tablet, By Mouth, 07/02/22 9:00:00 EDT Start Date: 07/02/22 Stop Date: 07/02/22 Status: Completed cefdinir 300 mg oral capsule 1 capsule = 300 mg, By Mouth, Every 12 hours, for 5 days, # 10 capsule, 0 Refills, Acute 07/07/22 8:56:00 EDT, 07/02/22 8:56:00 EDT, Capsule, [facility]/pharmacy #[id number], Partial fill upon patient request if the prescription is for a schedule II opioid drug.,... Start Date: 07/02/22 Stop Date: 07/07/22 Status: Ordered Daily Vin oral tablet 1 tablet, By Mouth, Daily, Maintenance, 02/20/22 12:52:00 EST, Tablet, ; Start Date: 02/20/22 Status: Ordered escitalopram 10 mg oral tablet 2 tablet = 20 mg, By Mouth, Daily, 0 Refills, Maintenance, [...] 02/18/22 7:13:00 EST, Route to Pharmacy Electronically, [facility], Partial fill upon patient request if the prescription is for a schedule II opioid... Start Date: 02/18/22 Status: Ordered losartan 50 mg oral tablet 50 mg, Tablet, By Mouth, 07/02/22 9:00:00 EDT Start Date: 07/02/22 Stop Date: 07/02/22 Status: Completed metFORMIN 1000 mg oral tablet 1 tablet [...] 0 Refills, Maintenance, 04/20/22 15:26:00 EST, Tablet, [facility], Partial fill upon patient request if the prescription is for... Start Date: 04/20/22 Stop Date: 05/20/22 Status: Ordered warfarin 5 mg oral tablet See Instructions, Take 1 to 2.5 tablets by mouth daily as directed by the [facility], # 225 tablet, 1 Refills, Maintenance, 04/13/22 17:25:00 EST, Tablet, [facility]/pharmacy #[id number], Partial fill upon patient request if the prescription is for a schedule... Start Date: 04/13/22 Status: Ordered warfarin 5 mg oral tablet See Instructions, Take 1 to 2 and 1/2 tablets by mouth daily as directed by the [facility], # 30 tablet, 4 Refills, Maintenance, 04/20/22 15:25:00 EST, Tablet, [facility], Partial fill upon patient request [...] Exam Date Time Procedure Performing Provider Status 06/30/22 10:[address] Angio Neck Deloris López; Auth (V erified) Notes: (CT Angio Neck) Reason For Exam: Aneurysm, neck vessel(s);Other: RESULT: CT Angio Neck CT Angio Head, CT Angio Neck Hx of Present Illness: onset this am, left sided AYERS (sharp, pounding) photosensitive, rt eye blurryvision w o dbl vision, no trauma, fever, + diahrea w o n v; Reason: Other:; Neuro deficit, acute, stroke suspected; Clinical Question(s): Other:; Hematoma Aneurysm / Other: TECHNIQUE: CT angiogram of the [...] exposure parameters. RADIATION DOSE PARAMETERS: CTDIvol Body: 19.80 mGy, DLP Body: 890 mGy*cm. CTDIvol Head: 48.10 mGy, DLP Head: 772 mGy*cm. COMPARISON: Noncontrast CT head performed concurrently. CTA Head and Neck 04/19/2022 FINDINGS: CTA OF THE NECK: Arch: There is a three vessel aortic arch. There is mild atherosclerotic plaque of the aortic arch,but origins of the supra aortic vessels are patent. The subclavian arteries are patent. Right carotid system: The common carotid and cervical internal carotid arteries are patent. There is calcified atherosclerotic plaque at the carotid bifurcation and proximal right ICA, but no ICA stenosis (0%) by NASCET criteria. Left carotid system: The common carotid and cervical internal carotid arteries are patent. There iscalcified atherosclerotic plaque at the proximal ICA, but no ICA stenosis (0%) by NASCET criteria. There is a iifopu-szor-xnuffwel vertebral artery system. Right vertebral: Patent. Left vertebral: Patent. Other: Soft tissues and bones: Prominence of the palatine tonsils is similar, which can be correlated withdirect visual inspection. The thyroid is unremarkable. Visualized lungs are blurred by motion artifact, without significant superimposed airspace opacity. The pulmonary artery is enlarged, which is co mpatible with pulmonary artery hypertension. No acute bony abnormality. CTA OF THE HEAD: Anterior circulation: Bilateral intracranial ICAs and their MAURI and MCA branches are patent. ICA calcifications. Posterior circulation: Bilateral intracranial vertebral arteries, the basilar artery, and bilateralsuperior cerebellar and posterior cerebral artery branches are patent. Veins: Major dural venous sinuses are patent. Other: Soft tissues and bones: Lucencies within the thalami are present bilaterally, which probably represent chronic thalamic lacunar infarcts. Normal arreguin-white matter differentiation is grossly preserved, and there is no CT evidence of a large acute territorial infarct. Orbits are unremarkable. No acute bony abnormality. Left maxillary sinus retention cyst. Dental caries and periapical lucencies. IMPRESSION: 1. No acute intracranial large vessel occlusion. 2. Hemodynamically-significant stenosis of the extracranial internal carotid and vertebral arteries. 3. Enlarged pulmonary artery compatible with pulmonary artery hypertension. A preliminary report was issued to the emergency room by the ad service 06/30/2022 at 10:49 PM. WSN: [id number] Ordering Physician: Lynn Hernandez Dictated By: Ilir Gutierrez MD Dictated Date/Time: 07/01/22 9:46 am Reviewed By: Ilir Gutierrez MD Signed By: Ilir Gutierrez MD Signed Date/Time: 07/01/22 9:46 am Transcribed By: ROBERT Transcribed Date/Time: 07/01/22 9:33 am * Exam Date Time Procedure Performing Provider Status 06/30/22 10:[address] Angio Head Deloris López; Auth (V erified) Notes: (CT Angio Head) Reason For Exam: Neuro deficit, acute, stroke suspected;Other: RESULT: CT Angio Head CT Angio Head, CT Angio Neck Hx of Present Illness: onset this am, left sided AYERS (sharp, pounding) photosensitive, rt eye blurryvision w o dbl vision, no trauma, fever, + diahrea w o n v; Reason: Other:; Neuro deficit, acute, stroke suspected; Clinical Question(s): Other:; Hematoma Aneurysm / Other: TECHNIQUE: CT angiogram of the [...] exposure parameters. RADIATION DOSE PARAMETERS: CTDIvol Body: 19.80 mGy, DLP Body: 890 mGy*cm. CTDIvol Head: 48.10 mGy, DLP Head: 772 mGy*cm. COMPARISON: Noncontrast CT head performed concurrently. CTA Head and Neck 04/19/2022 FINDINGS: CTA OF THE NECK: Arch: There is a three vessel aortic arch. There is mild atherosclerotic plaque of the aortic arch,but origins of the supra aortic vessels are patent. The subclavian arteries are patent. Right carotid system: The common carotid and cervical internal carotid arteries are patent. There is calcified atherosclerotic plaque at the carotid bifurcation and proximal right ICA, but no ICA stenosis (0%) by NASCET criteria. Left carotid system: The common carotid and cervical internal carotid arteries are patent. There iscalcified atherosclerotic plaque at the proximal ICA, but no ICA stenosis (0%) by NASCET criteria. There is a ozxisd-xncb-cbityort vertebral artery system. Right vertebral: Patent. Left vertebral: Patent. Other: Soft tissues and bones: Prominence of the palatine tonsils is similar, which can be correlated withdirect visual inspection. The thyroid is unremarkable. Visualized lungs are blurred by motion artifact, without significant superimposed airspace opacity. The pulmonary artery is enlarged, which is co mpatible with pulmonary artery hypertension. No acute bony abnormality. CTA OF THE HEAD: Anterior circulation: Bilateral intracranial ICAs and their MAURI and MCA branches are patent. ICA calcifications. Posterior circulation: Bilateral intracranial vertebral arteries, the basilar artery, and bilateralsuperior cerebellar and posterior cerebral artery branches are patent. Veins: Major dural venous sinuses are patent. Other: Soft tissues and bones: Lucencies within the thalami are present bilaterally, which probably represent chronic thalamic lacunar infarcts. Normal arreguin-white matter differentiation is grossly preserved, and there is no CT evidence of a large acute territorial infarct. Orbits are unremarkable. No acute bony abnormality. Left maxillary sinus retention cyst. Dental caries and periapical lucencies. IMPRESSION: 1. No acute intracranial large vessel occlusion. 2. Hemodynamically-significant stenosis of the extracranial internal carotid and vertebral arteries. 3. Enlarged pulmonary artery compatible with pulmonary artery hypertension. A preliminary report was issued to the emergency room by the [facility] service 06/30/2022 at 10:49 PM. WSN: [id number] Ordering Physician: Lynn Hernandez Dictated By: Ilir Gutierrez MD Dictated Date/Time: 07/01/22 9:46 am Reviewed By: Ilir Gutierrez MD Signed By: Ilir Gutierrez MD Signed Date/Time: 07/01/22 9:46 am Transcribed By: ROBERT Transcribed Date/Time: 07/01/22 9:33 am * Exam Date Time Procedure Performing Provider Status 06/30/22 10:[address] Head/Brain W/O Contrast Deloris López; Arslan (Verified) Notes: (CT Head/Brain W/O Contrast) Reason For Exam: headache, supratherapeutic INR, ? ICH;Other: RESULT: CT Head/Brain W/O Contrast CT Head/Brain W/O Contrast INDICATION: Hx of Present Illness: onset this am, left sided AYERS (sharp, pounding) photosensitive, rt eye blurry vision w o dbl vision, no trauma, fever, + diarrhea w o n v; Reason: Other:; headache, supratherapeutic INR, ? ICH; Clinical Question(s): Other: TECHNIQUE: Noncontrast head CT using axial technique and reconstructed in axial and coronal planes.Iterative reconstruction techniques are used to optimize dose and image quality. CTDIvol Body: 19.80 mGy, DLP Body: 890 mGy*cm. CTDIvol Head: 48.10 mGy, DLP Head: 772 mGy*cm. COMPARISON: 05/25/2022. FINDINGS: Cloth Examiner Machine view findings, lines and tubes: None. BRAIN AND EXTRA-AXIAL SPACES: No parenchymal hemorrhage, midline shift, or mass effect. Arreguin-white matter differentiation is wellpreserved. No acute infarct. Negative insular ribbon sign. Atherosclerotic vascular calcification of the carotid arteries but negative hyperdense vessel sign. There is a 1 cm calcified lesion overlying the right frontal cortex, likely a meningioma, not significantly changed. Ventricles, sulci, and basilar cisterns are normal. Mild low-density white matter changes. No subarachnoid hemorrhage. No subdural or epidural collection. CALVARIUM, SKULL BASE, AND SOFT TISSUES: No fractures or suspicious bony lesions. The paranasal sinuses and mastoid air cells are clear. Visualized orbits and globes are intact. The extracranial soft tissues are unremarkable. IMPRESSION: No acute intracranial pathology. I have personally reviewed the images and I agree with this report. WSN: [id number] Ordering Physician: Lynn Hernandez Dictated By: Arlin Rollins MD Dictated Date/Time: 06/30/22 11:15 p Reviewed By: Jarrod Welsh MD Signed By: Jarrod Welsh MD Signed Date/Time: 06/30/22 11:20 pm Transcribed By: ROBERT Transcribed Date/Time: 06/30/22 11:03 pm * Exam Date Time Procedure Performing Provider Status 06/30/22 10:[address] Abd/Pelvis W/ IV Contrast Only Deloris López; Arslan (Verified) Notes: (CT Abd/Pelvis W/ IV Contrast Only) Reason For Exam: LLQ abdominal pain;Other: RESULT: CT Abd/Pelvis W/ IV Contrast Only CT Abd/Pelvis W/ IV Contrast Only Hx of Present Illness: onset this am, left sided AYERS (sharp, pounding) photosensitive, rt eye blurryvision w o dbl vision, no trauma, fever, + diarrhea w o n v; Reason: Other:; LLQ abdominal pain; Clinical Question(s): Other:; ? Diverticulitis; Order Comment: Patient unable to tolerate PO contrast. TECHNIQUE: Spiral CT through the abdomen and pelvis with IV contrast formatted in 3 planes. 100 cc of Omnipaque 300 was administered intravenously. This study was performed without oral contrast. Weight-based protocol using automatic tube modulation was used to optimize exposure parameters. CTDIvol Body: 28.20 mGy, DLP Body: 1643 mGy*cm. COMPARISON: 04/19/2022. FINDINGS: Cloth Examiner Machine View Findings, Lines and Tubes: None. Visualized Chest: Lung bases are clear. Partially calcified granuloma in the left upper lobe measures 1.1 cm4 no pleural effusion. Mild cardiomegaly. Small pericardial effusion measures 1.2 cm adjacent to the right ventricle, increased since the prior CT. Diaphragm: Normal. Liver: Normal. Gallbladder: Absent consistent with prior cholecystectomy. Bile ducts: No biliary ductal dilation. Spleen: Normal. Accessory splenic tissue is incidentally noted. Pancreas: Normal. Adrenal glands: Normal. Kidneys and ureters: No hydronephrosis, stones, or suspicious masses. Small hypodensities that are too small to characterize are noted, requiring no dedicated follow up. Bladder: Mild wall thickening and perivesical fat stranding. Reproductive organs: Microcalcifications in the prostate. There is fat stranding around the prostate and seminal vesicles. Stomach, small bowel, and large bowel: Normal. Appendix: Normal. Peritoneum and retroperitoneum: No ascites or pneumoperitoneum. No omental or mesenteric lesions. Lymph nodes: No enlarged lymph nodes. Blood vessels: Mild vascular calcifications but no aneurysm. No evidence of venous thrombosis. Abdominal and pelvic wall: Small fat-containing supraumbilical ventral hernia. Small umbilical hernia. There are multiple hyperdense foci throughout the abdominal subcutaneous tissues that likely represent injection sites. Bones: Mild degenerative changes of the thoracolumbar spine. IMPRESSION: Findings suggesting prostatitis and cystitis. New small pericardial effusion. Findings were communicated to TERRY Lugo via secure messaging system [employer] at 11:00 PM. Message receipt was confirmed. I have personally reviewed the images and I agree with this report. WSN: [id number] Ordering Physician: Lynn Hernandez Dictated By: Arlin Rollins MD Dictated Date/Time: 06/30/22 11:01 p Reviewed By: Jarrod Welsh MD Signed By: Jarrod Welsh MD Signed Date/Time: 06/30/22 11:06 pm Transcribed By: ROBERT Transcribed Date/Time: 06/30/22 10:52 pm Vital Signs Most recent to oldest [Reference Range]: 1 2 3 Oxygen Saturation [94-100 %] 98 % (07/02/22 9:36 AM) 97 % (07/02/22 8:02 AM) 98 % (07/02/22 5:07 AM) Pulse Rate [55-90 bpm] 72 bpm (07/02/22 9:36 AM) 85 bpm (07/02/22 8:03 AM) 85 bpm (07/02/22 8:02 AM) Blood Pressure [90-138/55-84 mm Hg] 172/78mm Hg *H* (07/02/22 9:36 AM) 153/86mm Hg *H* (07/02/22 8:03 AM) 153/86mm Hg *H* (07/02/22 8:03 AM) Respiratory Rate [16-30 br/min] 18 br/min (07/02/22 9:36 AM) 19 br/min (07/02/22 8:02 AM) 16 br/min (07/02/22 5:07 AM) Temperature [96.8-100.4 DegF] 98.2 DegF (07/02/22 9:36 AM) 97.5 DegF (07/02/22 8:02 AM) 97.9 DegF (07/01/22 8:59 PM) Mode of Delivery (Oxygen) Room air (07/02/22 9:36 AM) Room air (07/02/22 8:02 AM) Room air (07/01/22 8:59 PM) Blood pressure sites Arm, left (07/02/22 8:02 AM) Arm, left (07/01/22 8:59 PM) Arm, left (07/01/22 5:32 PM) Temperature Route Oral (07/02/22 9:36 AM) Oral (07/02/22 8:02 AM) Oral (07/01/22 8:59 PM) Social History Social History Type Response Smoking Status Never (less than 100 in lifetime) entered on: 02/14/22 Sex Admission evaluation note * Kelsea Thomas MD: PERFORM Event Display: Admission Note Authored Date: Patient: ??RONIMONSTER JONES ? Age:??51 Years?Sex:??Male?:??1970?? Chief Complaint/Reason for Consultation Not feeling good History of Present Illness 51-year-old male with a past medical history of hypertension, hyperlipidemia, PE on Coumadin, diabetes type 2, heart failure with reduced EF presents to the hospital with?? not feeling well, headache, chest pain . Pt came in the ED?? on 06/24/22 with dysuria,?? UA was s/o UTI and he was discharged on Cefpodoxime. Pt mentioned he is taking abx and only has few left but still has lower abd pain anddysuria. ??Denied having fever or chills .?? Yesterday around ? 8 or 9 AM he developed a left-sided throbbing headache.?He reports the headache has been constant throughout the day. ??He also notes some blurry vision in the right eye and some photophobia. ??He denies dizziness. ??No weakness. ??Hehas bilateral hand paresthesias. ??No arm paresthesias. ??He has neuropathy in his legs at baselineand denies any changes. ??He is on warfarin for a PE and reports supratherapeutic INR 2 days ago of>6. He has been holding his warfarin for the past few days.?? At presentation he was afebrile stable, laboratory work-up showed WBC count 12.2, hemoglobin 12.9 INR 2.2, sodium 144 potassium 4.0 chloride 107 bicarbonate 25.?? 0.2 urinalysis was suggestive of?? UTI. He had extensive imaging done, CT head without any acute findings CT angio of the head and neck without any large vessel obstruction, CT abdomen showed prostatitis and cystitis.? Patient was seen at bedside this morning, mention he was feeling little better, denied having any headache, still having dysuria and lower abdominal pain.?? Patient complained of chest pain after admission He was complaining some tenderness on left chest wall, he thinks he has pulled a muscle ? Objective ? Vital Signs?? Temperature: 98.1 DegF (07/01/22 09:06:00) Temperature Route: Oral (07/01/22 09:06:00) Pulse Rate: 65 bpm (07/01/22 09:06:00) Respiratory Rate: 16 br/min (07/01/22 09:06:00) Vented: No (07/01/22 09:06:00) Systolic Blood Pressure:??154 mm Hg??High (07/01/22 09:06:00) Diastolic Blood Pressure: 80 mm Hg (07/01/22 09:06:00) Blood pressure sites: Arm, left (03/18/23 23:45:00) Mean Arterial Pressure: 95 mm Hg (06/30/22 20:17:00) Pulse Pressure: 74 mm Hg (07/01/22 09:06:00) Oxygen Saturation: 98 % (07/01/22 09:06:00) Mode of Delivery (Oxygen): Room air (07/01/22 09:06:00) Early Warning Score: 0 (07/01/22 12:58:49) ? Intake/Output? No Data Available ?? Precautions Contact Precautions ? Physical Exam GENERAL: In no apparent distress HEENT: Head normocephalic, PERRL,Moist mucous membrane. 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 PSYCHIATRIC: Calm and co-operative SKIN: Warm and dry. ? Assessment/Plan Diagnoses ?? No diagnosis data available. ? 51-year-old male with a past medical history of hypertension, hyperlipidemia, PE on Coumadin, diabetes type 2, heart failure with reduced EF presents to the hospital with?? not feeling well, headache, chest pain . ? Acute prostatitis ??Acute cystitis ?? Symptoms going for more than a week Most recent urine culture Klebsiella pneumoniae Patient was also on oxygen at home Afebrile, since but complaining of ongoing symptoms and CT scan suggestive of cystitis and prostatitis He is on ceftriaxone , will continue UA - s/o UTI ??send urine culture ? Chest pain H/o HF pEF ? tenderness in left chest wall HS troponin -??46, 43 , 43 EKG no ischemic changes ??Continue Coreg, losartan? H/o??DM with Neuropathy ?? lantus 10 unit daily at bedtime, lispro SSI hodl metformin ? Headache ?? no active headache now ?? h/o PE ?? Continue Coumadin with goal INR 2-3 ? diet - cardiac ??DVT ppx - on coumadin ??Code status - Full code ? Histories Allergies Allergies ?(Active and Proposed Allergies Only) vancomycin? (Severity: Unknown severity, Onset: Unknown) ? Past Medical History/Problem List Active Problems??(4) COVID-19 Obese class II Tubular adenoma of colon Urinary tract infection [...] Cancer of colon ? Medications Home Medications alpha-lipoic acid (Alpha Lipoic 300 mg oral tablet)?1?tab(s)?300?Milligram?By Mouth?2 times a day?for 30?Days?for diabetic neuropathy ;stop if dizziness n/v Atorvastatin (atorvastatin 40 mg oral tablet)?1?tab(s)?40?Milligram?By Mouth?Daily Carvedilol (carvedilol 6.25 mg oral tablet)?6.25?Milligram?1?tablet?By Mouth?2 times a day Cefpodoxime (cefpodoxime 200 mg oral tablet)?1?tab(s)?200?Milligram?By Mouth?Every 12 hours?for 10?Days Durable Medical Equipment (Walker)?See Instructions?One Escitalopram (escitalopram [...] mg oral tablet)?1?tab(s)?1,000?Milligram?By Mouth?Dailybefore breakfast Multivitamin (Daily Vni oral tablet)?1?tab(s)?By Mouth?Daily Topiramate (topiramate 100 mg oral tablet)?1?tab(s)?100?Milligram?By Mouth?2 times a day Warfarin (warfarin 5 mg oral tablet)?See Instructions?Take 1 to 2.5 tablets by mouth daily asdirected by the [facility] Warfarin (warfarin 5 mg oral tablet)?See Instructions?Take 1 to 2 and 1/2 tablets by mouth daily as directed by the [facility] Warfarin (warfarin 3 mg oral tablet)?3?tab(s)?9?Milligram?By Mouth?Daily?for 30?Days?dose to be adjusted as recommended by anticoagulation clinic ? Results Recent Labs BLOOD COUNT & DIFF WBC 12.2 k/mm3 (High)?? 06/30/2022 21:09 RBC 4.84 m/mm3 ()?? 06/30/2022 21:09 Hgb 12.9 Gm/dL (Low)?? 06/30/2022 21:09 Hct 38.5 % (Low)?? 06/30/2022 21:09 MCV 79.5 femtoliters (Low)?? 06/30/2022 21:09 MCH 26.7 pg (Low)?? 06/30/2022 21:09 MCHC 33.5 g/dL ()?? 06/30/2022 21:09 Platelet Count 431 k/mm3 ()?? 06/30/2022 21:09 RDW-SD 41.9 femtoliters ()?? 06/30/2022 21:09 MPV 10.5 femtoliters ()?? 06/30/2022 21:09 Nucleated RBC (Automated) 0.0 #/100 WBC'S ()?? 06/30/2022 21:09 Abs. NRBC 0.0 k/mm3 ()?? 06/30/2022 21:09 Abs. Neut 8.4 k/mm3 (High)?? 06/30/2022 21:09 Abs. Lymph 2.3 k/mm3 ()?? 06/30/2022 21:09 Abs. Collin 0.9 k/mm3 ()?? 06/30/2022 21:09 Abs. Eo 0.3 k/mm3 ()?? 06/30/2022 21:09 Abs. Baso 0.1 k/mm3 ()?? 06/30/2022 21:09 Neut % 68.8 % ()?? 06/30/2022 21:09 Lymph % 19.2 % ()?? 06/30/2022 21:09 Collin % 7.2 % ()?? 06/30/2022 21:09 Eos % 2.5 % ()?? 06/30/2022 21:09 Baso % 0.7 % ()?? 06/30/2022 21:09 Imm Gran 1.6 % ()?? 06/30/2022 21:09 Abs. Imm Gran 0.2 k/mm3 ()?? 06/30/2022 21:09 ?? CARDIAC High Sensitivity Troponin (HSTnT) 43 ng/L (High)?? 07/01/2022 08:31 ?? CHEM GENERAL Sodium 144 mmol/L ()?? 06/30/2022 21:09 Potassium 4.0 mmol/L ()?? 06/30/2022 21:09 Chloride 107 mmol/L ()?? 06/30/2022 21:09 Bicarbonate Level 25 mmol/L ()?? 06/30/2022 21:09 Anion Gap 12 ()?? 06/30/2022 21:09 Glucose Level 145 mg/dL (High)?? 06/30/2022 21:09 Glucose, POC 143 mg/dL (High)?? 07/01/2022 12:53 BUN 24 mg/dL (High)?? 06/30/2022 21:09 Creatinine-Blood 1.2 mg/dL ()?? 06/30/2022 21:09 Estimated GFR Creatinine 76 ML/MIN/1.73 M2 ()?? 06/30/2022 21:09 Calcium 9.6 mg/dL ()?? 06/30/2022 21:09 Protein, Total 6.7 Gm/dL ()?? 06/30/2022 21:09 Albumin 3.7 Gm/dL ()?? 06/30/2022 21:09 AG Ratio 1.2 ()?? 06/30/2022 21:09 Alkaline Phosphatase 101 units/L ()?? 06/30/2022 21:09 Lipase 21 units/L ()?? 06/30/2022 22:11 AST (SGOT) 13 units/L ()?? 06/30/2022 21:09 ALT (SGPT) 25 units/L ()?? 06/30/2022 21:09 Bilirubin, Total 0.2 mg/dL ()?? 06/30/2022 21:09 ?? COAG INR 1.8 (High)?? 07/01/2022 08:30 Protime (PT) 18.4 seconds (High)?? 07/01/2022 08:30 ?? UA/URINALYSIS Appear/Color, Urine YELLOW ()?? 07/01/2022 09:15 Specific [place], Urine >1.050 (High)?? 07/01/2022 09:15 pH, Urine 6.0 ()?? 07/01/2022 09:15 Albumin, Urine 1+ (Abnormal)?? 07/01/2022 09:15 Glucose, Urine NEGATIVE ()?? 07/01/2022 09:15 Ketones, Urine TRACE (Abnormal)?? 07/01/2022 09:15 Bilirubin, Urine NEGATIVE ()?? 07/01/2022 09:15 Hemoglobin, Urine NEGATIVE ()?? 07/01/2022 09:15 Nitrite, Urine POSITIVE (Abnormal)?? 07/01/2022 09:15 Leukocyte, Urine 1+ (Abnormal)?? 07/01/2022 09:15 Urobilinogen NORMAL mg/dL ()?? 07/01/2022 09:15 WBC's, Urine 34 /HPF (High)?? 07/01/2022 09:15 RBC's, Urine 2 /HPF ()?? 07/01/2022 09:15 Bacteria HEAVY HPF (Abnormal)?? 07/01/2022 09:15 Squamous Epith 1 /HPF ()?? 07/01/2022 09:15 Mucus HEAVY /LPF ()?? 07/01/2022 09:15 Hold Urine Culture Testing available 48 hours from time of collection. ()?? 07/01/2022 09:15 ? Cardiology Labs High Sensitivity Troponin (HSTnT):??43 ng/L??High (07/01/22 08:31:00) High Sensitivity Troponin (HSTnT):??46 ng/L??High (07/01/22 01:01:00) High Sensitivity Troponin (HSTnT):??43 ng/L??High (06/30/22 22:11:00) ?? Blood Gases?? No qualifying data available. ? EKG study * Event Display: ECG 12-Lead Authored Date: Please click on pdf link to open report * Event Display: ECG 12-Lead Authored Date: Ventricular Rate: 62 BPM Atrial Rate: 62 BPM P-R Interval: 138 ms QRS Duration: 128 ms Q-T Interval: 462 ms QTC Calculation(Bazett): 468 ms P Richmond: 51 degrees R Richmond: -57 degrees T Richmond: 109 degrees Normal sinus rhythm Left bundle branch block Abnormal ECG When compared with ECG of 25-MAY-2022 15:55, No significant change was found Confirmed by TIANNA LITTLEJOHN ([id number]) on 07/02/2022 8:35:36 AM [place]: TIANNA LITTLEJOHN Note * Vazquez GONZALEZ, Saborna: PERFORM Event Display: Discharge/Transfer Note Hospital Authored Date: Patient: ??RONI, MONSTER ? Age:??51 Years?Sex:??Male?:??1970?? Patient Information Discharge Location: [facility] Primary Care Physician: Brandin Valdez MD Admit Date/Time: 07/01/22 00:40 Discharge Disposition Discharge Disposition: Home: No Services Discharge Diagnosis Headache. Supratherapeutic INR. UTI. _ Discharge Medications alpha-lipoic acid (Alpha Lipoic 300 mg oral tablet)?1?tab(s)?300?Milligram?By Mouth?2 times a day?for 30?Days?for diabetic neuropathy ;stop if dizziness n/v Atorvastatin (atorvastatin 40 mg oral tablet)?1?tab(s)?40?Milligram?By Mouth?Daily Carvedilol (carvedilol 6.25 mg oral tablet)?6.25?Milligram?1?tablet?By Mouth?2 times a day Cefdinir (cefdinir 300 mg oral capsule)?1?capsule?300?Milligram?By Mouth?Every 12hours?for 5?Days Durable Medical Equipment (Walker)?See Instructions?One Escitalopram (escitalopram [...] mouth daily asdirected by the [facility] Warfarin (warfarin 5 mg oral tablet)?See Instructions?Take 1 to 2 and 1/2 tablets by mouth daily as directed by the [facility] Warfarin (warfarin 3 mg oral tablet)?3?tab(s)?9?Milligram?By Mouth?Daily?for 30?Days?dose to be adjusted as recommended by anticoagulation clinic ? Medications Started Cefdinir (cefdinir 300 mg oral capsule)?1?capsule?300?Milligram?By Mouth?Every 12hours?for 5?Days Medications Discontinued None. Doses Changed None. Allergies Allergies ?(Active and Proposed Allergies Only) vancomycin? (Severity: Unknown severity, Onset: Unknown) ? Future Appointments Saturday 10:15 AM EDT ?? With: Where: [facility] [address] [place] [address] [address] [place] [address]- Saturday 3:30 PM EDT ?? With: Lisa GONZALEZ, Lexa Where: [facility] [address] [facility] 3rd Floor, [address] [place] [id number]- Hospital Course ??51-year-old male with a past medical history of hypertension, hyperlipidemia, PE on Coumadin, diabetes type 2, heart failure with reduced EF presents to the hospital with?? not feeling well, headache , chest pain . ? Acute prostatitis Acute cystitis Symptoms going for more than a week Most recent urine culture Klebsiella pneumoniae Patient was also on oxygen at home Afebrile, since but complaining of ongoing symptoms and CT scan suggestive of cystitis and prostatitis Got treated with ceftriaxone in the hospital. Symptoms improved. We will discharge with cefdinir 300 mg twice daily for 5 more days??as outpatient. ?? Chest pain H/o HF pEF tenderness in left chest wall HS troponin -??46, 43 , 43 EKG no ischemic changes Continue Coreg, losartan? H/o??DM with Neuropathy Lantus 10 unit daily at bedtime, and??aspart??sliding scale Continue metformin ? Headache no active headache now ?? h/o PE Continue Coumadin at home??dose.??with goal INR 2-3 ? Objective ? Vital Signs?? Temperature: 97.5 DegF (07/02/22 08:02:00) Temperature Route: Oral (07/02/22 08:02:00) Pulse Rate: 85 bpm (07/02/22 08:03:00) Respiratory Rate: 19 br/min (07/02/22 08:02:00) Vented: No (07/01/22 09:06:00) Systolic Blood Pressure:??153 mm Hg??High (07/02/22 08:03:00) Systolic Blood Pressure:??153 mm Hg??High (07/02/22 08:03:00) Diastolic Blood Pressure:??86 mm Hg??High (07/02/22 08:03:00) Diastolic Blood Pressure:??86 mm Hg??High (07/02/22 08:03:00) Blood pressure sites: Arm, left (07/02/22 08:02:00) Mean Arterial Pressure: 138 mm Hg (07/02/22 05:07:00) Pulse Pressure: 73 mm Hg (07/02/22 05:07:00) Oxygen Saturation: 97 % (07/02/22 08:02:00) Mode of Delivery (Oxygen): Room air (07/02/22 08:02:00) Early Warning Score: 2 (07/02/22 08:04:20) ? . Physical Exam ?? General: Lying comfortably in bed,no evident distress Cardiac: S1 + S2 + 0, no murmurs heard Respiratory: CTA, No wheezes, Rales or crackles heard Abdomen: soft, nondistended, nontender Extremities: No edema or cyanosis present Neurological: AO X3,cranial nerves grossly normal? Pending Results Add On Lab Order ordered on 07/01/2022 C. difficile Rapid Toxin Assay ordered on 07/01/2022 COVID-19 (2019 Novel Coronavirus) PCR ordered on 07/02/2022 GI Profile, Stool, PCR ordered on 07/01/2022 INR ordered on 07/01/2022 Urine Culture ordered on 07/01/2022 Follow-Up Appointments Added Follow Up ?Time Frame ?Comments Courtney GONZALEZ, Brandin Stahl?2 to 3 weeks Post Discharge Care Discharge ?07/02/22 8:57:00 EDT Discharge Prescriptions ?ePrescribed, ??Prescription sent to [facility] ??07/02/22 8:57:00 EDT Home Health Face to Face ^HomeHealth[facility] Results Discharge Labs BLOOD COUNT & DIFF WBC 12.2 k/mm3 (High)?? 06/30/2022 21:09 RBC 4.84 m/mm3 ()?? 06/30/2022 21:09 Hgb 12.9 Gm/dL (Low)?? 06/30/2022 21:09 Hct 38.5 % (Low)?? 06/30/2022 21:09 MCV 79.5 femtoliters (Low)?? 06/30/2022 21:09 MCH 26.7 pg (Low)?? 06/30/2022 21:09 MCHC 33.5 g/dL ()?? 06/30/2022 21:09 Platelet Count 431 k/mm3 ()?? 06/30/2022 21:09 RDW-SD 41.9 femtoliters ()?? 06/30/2022 21:09 MPV 10.5 femtoliters ()?? 06/30/2022 21:09 Nucleated RBC (Automated) 0.0 #/100 WBC'S ()?? 06/30/2022 21:09 Abs. NRBC 0.0 k/mm3 ()?? 06/30/2022 21:09 Abs. Neut 8.4 k/mm3 (High)?? 06/30/2022 21:09 Abs. Lymph 2.3 k/mm3 ()?? 06/30/2022 21:09 Abs. Collin 0.9 k/mm3 ()?? 06/30/2022 21:09 Abs. Eo 0.3 k/mm3 ()?? 06/30/2022 21:09 Abs. Baso 0.1 k/mm3 ()?? 06/30/2022 21:09 Neut % 68.8 % ()?? 06/30/2022 21:09 Lymph % 19.2 % ()?? 06/30/2022 21:09 Collin % 7.2 % ()?? 06/30/2022 21:09 Eos % 2.5 % ()?? 06/30/2022 21:09 Baso % 0.7 % ()?? 06/30/2022 21:09 Imm Gran 1.6 % ()?? 06/30/2022 21:09 Abs. Imm Gran 0.2 k/mm3 ()?? 06/30/2022 21:09 ?? CARDIAC High Sensitivity Troponin (HSTnT) 43 ng/L (High)?? 07/01/2022 08:31 ? CHEM GENERAL Sodium 144 mmol/L ()?? 07/02/2022 05:07 Potassium 4.1 mmol/L ()?? 07/02/2022 05:07 Chloride 108 mmol/L (High)?? 07/02/2022 05:07 Bicarbonate Level 25 mmol/L ()?? 07/02/2022 05:07 Anion Gap 11 ()?? 07/02/2022 05:07 Glucose Level 145 mg/dL (High)?? 06/30/2022 21:09 Glucose, POC 193 mg/dL (High)?? 07/01/2022 18:23 BUN 24 mg/dL (High)?? 07/02/2022 05:07 Creatinine-Blood 1.2 mg/dL ()?? 07/02/2022 05:07 Estimated GFR Creatinine 71 ML/MIN/1.73 M2 ()?? 07/02/2022 05:07 Calcium 9.6 mg/dL ()?? 06/30/2022 21:09 Protein, Total 6.7 Gm/dL ()?? 06/30/2022 21:09 Albumin 3.7 Gm/dL ()?? 06/30/2022 21:09 AG Ratio 1.2 ()?? 06/30/2022 21:09 Alkaline Phosphatase 101 units/L ()?? 06/30/2022 21:09 Lipase 21 units/L ()?? 06/30/2022 22:11 AST (SGOT) 13 units/L ()?? 06/30/2022 21:09 ALT (SGPT) 25 units/L ()?? 06/30/2022 21:09 Bilirubin, Total 0.2 mg/dL ()?? 06/30/2022 21:09 ? COAG INR 1.4 (High)?? 07/02/2022 05:07 Protime (PT) 14.8 seconds (High)?? 07/02/2022 05:07 ?? HEME OTHER Hold Lavender Top SPECIMEN DISCARDED AFTER 24 HOURS. ()?? 07/02/2022 05:07 ? UA/URINALYSIS Appear/Color, Urine YELLOW ()?? 07/01/2022 09:15 Specific [place], Urine >1.050 (High)?? 07/01/2022 09:15 pH, Urine 6.0 ()?? 07/01/2022 09:15 Albumin, Urine 1+ (Abnormal)?? 07/01/2022 09:15 Glucose, Urine NEGATIVE ()?? 07/01/2022 09:15 Ketones, Urine TRACE (Abnormal)?? 07/01/2022 09:15 Bilirubin, Urine NEGATIVE ()?? 07/01/2022 09:15 Hemoglobin, Urine NEGATIVE ()?? 07/01/2022 09:15 Nitrite, Urine POSITIVE (Abnormal)?? 07/01/2022 09:15 Leukocyte, Urine 1+ (Abnormal)?? 07/01/2022 09:15 Urobilinogen NORMAL mg/dL ()?? 07/01/2022 09:15 WBC's, Urine 34 /HPF (High)?? 07/01/2022 09:15 RBC's, Urine 2 /HPF ()?? 07/01/2022 09:15 Bacteria HEAVY HPF (Abnormal)?? 07/01/2022 09:15 Squamous Epith 1 /HPF ()?? 07/01/2022 09:15 Mucus HEAVY /LPF ()?? 07/01/2022 09:15 Hold Urine Culture Testing available 48 hours from time of collection. ()?? 07/01/2022 09:15 ? 35_ minutes spent on discharge CT Abdomen and Pelvis W contrast IV * BHSPowerscribe , CIS S: TRANSCRIBE Blaise GONZALEZ, Devrim: VERIFY Arlin Rollins MD: SIGN Event Display: Result: Authored Date: CT Abd/Pelvis W/ IV Contrast Only Hx of Present Illness: onset this am, left sided AYERS (sharp, pounding) photosensitive, rt eye blurryvision w o dbl vision, no trauma, fever, + diarrhea w o n v; Reason: Other:; LLQ abdominal pain; Clinical Question(s): Other:; ? Diverticulitis; Order Comment: Patient unable to tolerate PO contrast. TECHNIQUE: Spiral CT through the abdomen and pelvis with IV contrast formatted in 3 planes. 100 cc of Omnipaque 300 was administered intravenously. This study was performed without oral contrast. Weight-based protocol using automatic tube modulation was used to optimize exposure parameters. CTDIvol Body: 28.20 mGy, DLP Body: 1643 mGy*cm. COMPARISON: 04/19/2022. FINDINGS: Cloth Examiner Machine View Findings, Lines and Tubes: None. Visualized Chest: Lung bases are clear. Partially calcified granuloma in the left upper lobe measures 1.1 cm4 no pleural effusion. Mild cardiomegaly. Small pericardial effusion measures 1.2 cm adjacent to the right ventricle, increased since the prior CT. Diaphragm: Normal. Liver: Normal. Gallbladder: Absent consistent with prior cholecystectomy. Bile ducts: No biliary ductal dilation. Spleen: Normal. Accessory splenic tissue is incidentally noted. Pancreas: Normal. Adrenal glands: Normal. Kidneys and ureters: No hydronephrosis, stones, or suspicious masses. Small hypodensities that are too small to characterize are noted, requiring no dedicated follow up. Bladder: Mild wall thickening and perivesical fat stranding. Reproductive organs: Microcalcifications in the prostate. There is fat stranding around the prostate and seminal vesicles. Stomach, small bowel, and large bowel: Normal. Appendix: Normal. Peritoneum and retroperitoneum: No ascites or pneumoperitoneum. No omental or mesenteric lesions. Lymph nodes: No enlarged lymph nodes. Blood vessels: Mild vascular calcifications but no aneurysm. No evidence of venous thrombosis. Abdominal and pelvic wall: Small fat-containing supraumbilical ventral hernia. Small umbilical hernia. There are multiple hyperdense foci throughout the abdominal subcutaneous tissues that likely represent injection sites. Bones: Mild degenerative changes of the thoracolumbar spine. IMPRESSION: Findings suggesting prostatitis and cystitis. New small pericardial effusion. Findings were communicated to TERRY Lugo via secure messaging system [employer] at 11:00 PM. Message receipt was confirmed. I have personally reviewed the images and I agree with this report. WSN: [id number] Ordering Physician: Lynn Hernandez Dictated By: Arlin Rollins MD Dictated Date/Time: 06/30/22 11:01 p Reviewed By: Jarrod Welsh MD Signed By: Jarrod Welsh MD Signed Date/Time: 06/30/22 11:06 pm Transcribed By: ROBERT Transcribed Date/Time: 06/30/22 10:[address] Head WO contrast * BHSPowerscribe , CIS S: TRANSCRIBE Jarrod Welsh MD: VERIFY Arlin Rollins MD: SIGN Event Display: Result: Authored Date: [id number] CT Head/Brain W/O Contrast INDICATION: Hx of Present Illness: onset this am, left sided AYERS (sharp, pounding) photosensitive, rt eye blurry vision w o dbl vision, no trauma, fever, + diarrhea w o n v; Reason: Other:; headache, supratherapeutic INR, ? ICH; Clinical Question(s): Other: TECHNIQUE: Noncontrast head CT using axial technique and reconstructed in axial and coronal planes.Iterative reconstruction techniques are used to optimize dose and image quality. CTDIvol Body: 19.80 mGy, DLP Body: 890 mGy*cm. CTDIvol Head: 48.10 mGy, DLP Head: 772 mGy*cm. COMPARISON: 05/25/2022. FINDINGS: Cloth Examiner Machine view findings, lines and tubes: None. BRAIN AND EXTRA-AXIAL SPACES: No parenchymal hemorrhage, midline shift, or mass effect. Arreguin-white matter differentiation is wellpreserved. No acute infarct. Negative insular ribbon sign. Atherosclerotic vascular calcification of the carotid arteries but negative hyperdense vessel sign. There is a 1 cm calcified lesion overlying the right frontal cortex, likely a meningioma, not significantly changed. Ventricles, sulci, and basilar cisterns are normal. Mild low-density white matter changes. No subarachnoid hemorrhage. No subdural or epidural collection. CALVARIUM, SKULL BASE, AND SOFT TISSUES: No fractures or suspicious bony lesions. The paranasal sinuses and mastoid air cells are clear. Visualized orbits and globes are intact. The extracranial soft tissues are unremarkable. IMPRESSION: No acute intracranial pathology. I have personally reviewed the images and I agree with this report. WSN: [id number] Ordering Physician: Lynn Hernandez Dictated By: Arlin Rollins MD Dictated Date/Time: 06/30/22 11:15 p Reviewed By: Jarrod Welsh MD Signed By: Jarrod Welsh MD Signed Date/Time: 06/30/22 11:20 pm Transcribed By: ROBERT Transcribed Date/Time: 06/30/22 11:03 pm CTA Neck vessels W contrast IV * Ilir Gutierrez MD: VERIFY Ilir Gutierrez MD: VERIFY Event Display: Result: Authored Date: [id number] CT Angio Head, CT Angio Neck Hx of Present Illness: onset this am, left sided AYERS (sharp, pounding) photosensitive, rt eye blurryvision w o dbl vision, no trauma, fever, + diahrea w o n v; Reason: Other:; Neuro deficit, acute, stroke suspected; Clinical Question(s): Other:; Hematoma Aneurysm / Other: TECHNIQUE: CT angiogram of the [...] exposure parameters. RADIATION DOSE PARAMETERS: CTDIvol Body: 19.80 mGy, DLP Body: 890 mGy*cm. CTDIvol Head: 48.10 mGy, DLP Head: 772 mGy*cm. COMPARISON: Noncontrast CT head performed concurrently. CTA Head and Neck 04/19/2022 FINDINGS: CTA OF THE NECK: Arch: There is a three vessel aortic arch. There is mild atherosclerotic plaque of the aortic arch,but origins of the supra aortic vessels are patent. The subclavian arteries are patent. Right carotid system: The common carotid and cervical internal carotid arteries are patent. There is calcified atherosclerotic plaque at the carotid bifurcation and proximal right ICA, but no ICA stenosis (0%) by NASCET criteria. Left carotid system: The common carotid and cervical internal carotid arteries are patent. There iscalcified atherosclerotic plaque at the proximal ICA, but no ICA stenosis (0%) by NASCET criteria. There is a oivsnz-gsoi-arrcwbwr vertebral artery system. Right vertebral: Patent. Left vertebral: Patent. Other: Soft tissues and bones: Prominence of the palatine tonsils is similar, which can be correlated withdirect visual inspection. The thyroid is unremarkable. Visualized lungs are blurred by motion artifact, without significant superimposed airspace opacity. The pulmonary artery is enlarged, which is co mpatible with pulmonary artery hypertension. No acute bony abnormality. CTA OF THE HEAD: Anterior circulation: Bilateral intracranial ICAs and their MAURI and MCA branches are patent. ICA calcifications. Posterior circulation: Bilateral intracranial vertebral arteries, the basilar artery, and bilateralsuperior cerebellar and posterior cerebral artery branches are patent. Veins: Major dural venous sinuses are patent. Other: Soft tissues and bones: Lucencies within the thalami are present bilaterally, which probably represent chronic thalamic lacunar infarcts. Normal arreguin-white matter differentiation is grossly preserved, and there is no CT evidence of a large acute territorial infarct. Orbits are unremarkable. No acute bony abnormality. Left maxillary sinus retention cyst. Dental caries and periapical lucencies. IMPRESSION: 1. No acute intracranial large vessel occlusion. 2. Hemodynamically-significant stenosis of the extracranial internal carotid and vertebral arteries. 3. Enlarged pulmonary artery compatible with pulmonary artery hypertension. A preliminary report was issued to the emergency room by the [facility] service 06/30/2022 at 10:49 PM. WSN: [id number] Ordering Physician: Lynn Hernandez Dictated By: Ilir Gutierrez MD Dictated Date/Time: 07/01/22 9:46 am Reviewed By: Ilir Gutierrez MD Signed By: Ilir Gutierrez MD Signed Date/Time: 07/01/22 9:46 am Transcribed By: ROBERT Transcribed Date/Time: 07/01/22 9:33 am CTA Head vessels W contrast IV * Ilir Gutierrez MD: VERIFY Ilir Gutierrez MD: VERIFY Event Display: Result: Authored Date: [id number] CT Angio Head, CT Angio Neck Hx of Present Illness: onset this am, left sided AYERS (sharp, pounding) photosensitive, rt eye blurryvision w o dbl vision, no trauma, fever, + diahrea w o n v; Reason: Other:; Neuro deficit, acute, stroke suspected; Clinical Question(s): Other:; Hematoma Aneurysm / Other: TECHNIQUE: CT angiogram of the [...] exposure parameters. RADIATION DOSE PARAMETERS: CTDIvol Body: 19.80 mGy, DLP Body: 890 mGy*cm. CTDIvol Head: 48.10 mGy, DLP Head: 772 mGy*cm. COMPARISON: Noncontrast CT head performed concurrently. CTA Head and Neck 04/19/2022 FINDINGS: CTA OF THE NECK: Arch: There is a three vessel aortic arch. There is mild atherosclerotic plaque of the aortic arch,but origins of the supra aortic vessels are patent. The subclavian arteries are patent. Right carotid system: The common carotid and cervical internal carotid arteries are patent. There is calcified atherosclerotic plaque at the carotid bifurcation and proximal right ICA, but no ICA stenosis (0%) by NASCET criteria. Left carotid system: The common carotid and cervical internal carotid arteries are patent. There iscalcified atherosclerotic plaque at the proximal ICA, but no ICA stenosis (0%) by NASCET criteria. There is a imnueh-vxna-togxgaed vertebral artery system. Right vertebral: Patent. Left vertebral: Patent. Other: Soft tissues and bones: Prominence of the palatine tonsils is similar, which can be correlated withdirect visual inspection. The thyroid is unremarkable. Visualized lungs are blurred by motion artifact, without significant superimposed airspace opacity. The pulmonary artery is enlarged, which is co mpatible with pulmonary artery hypertension. No acute bony abnormality. CTA OF THE HEAD: Anterior circulation: Bilateral intracranial ICAs and their MAURI and MCA branches are patent. ICA calcifications. Posterior circulation: Bilateral intracranial vertebral arteries, the basilar artery, and bilateralsuperior cerebellar and posterior cerebral artery branches are patent. Veins: Major dural venous sinuses are patent. Other: Soft tissues and bones: Lucencies within the thalami are present bilaterally, which probably represent chronic thalamic lacunar infarcts. Normal arreguin-white matter differentiation is grossly preserved, and there is no CT evidence of a large acute territorial infarct. Orbits are unremarkable. No acute bony abnormality. Left maxillary sinus retention cyst. Dental caries and periapical lucencies. IMPRESSION: 1. No acute intracranial large vessel occlusion. 2. Hemodynamically-significant stenosis of the extracranial internal carotid and vertebral arteries. 3. Enlarged pulmonary artery compatible with pulmonary artery hypertension. A preliminary report was issued to the emergency room by the ad service 06/30/2022 at 10:49 PM. WSN: [id number] Ordering Physician: Lynn Hernandez Dictated By: Ilir Gutierrez MD Dictated Date/Time: 07/01/22 9:46 am Reviewed By: Ilir Gutierrez MD Signed By: Ilir Gutierrez MD Signed Date/Time: 07/01/22 9:46 am Transcribed By: ROBERT Transcribed Date/Time: 07/01/22 9:33 am Patient Care team information Care Team Personnel Name: Oziel Tapia RN Position: [facility] RN Member Role: Primary Care Nurse Name: Aria Patel RN Position: [facility] AMB Nurse Member Role: Primary Care Nurse Name: Summer Donsi Position: [facility] RN Member Role: Primary Care Nurse Name: Yaneth Gray RN Position: [facility] RN Member Role: Primary Care Nurse Name: Sagrario Eden Position: [facility] RN Member Role: Primary Care Nurse Name: Brandin Valdez MD Position: [facility] Physician (General Medicine) Member Role: PCP Address: Address: [address] [place] [address]- Name: Taras Yuen RN Position: [facility] RN Member Role: Primary Care Nurse Name: Aditi Clifton RN Position: [facility] RN Member Role: Primary Care Nurse Name: Fatemeh Saldaña PharmD Position: [facility] Associate Professional Member Role: Lifetime Consulting Provider Address: Address: [address] [place] [id number]- Name: Fatemeh Hernandez Position: [facility] Outreach Member Role: Lifetime Consulting Physician Name: Katt Márquez RN Position: [facility] RN Member Role: Primary Care Nurse Name: Nabeel Agarwal MD Position: [facility] Renal MD Member Role: Lifetime Consulting Physician Address: Address: [address] [facility] [address] [facility] [place] [address]- Name: Michaela Funes RN Position: [facility] RN Member Role: Primary Care Nurse Name: Arabella Mcghee Position: [facility] Outreach Member Role: Lifetime Consulting Physician Name: Tangela Segovia LPN Position: [facility] RN Member Role: Primary Care Nurse Name: Silvia VALENTIN Attending Position: [facility] ED Medicine MD Name: Rosa Dobbins RN Position: [facility] ED RN W/OE and Tasks Member Role: Patient Care Provider Name: Germaine Grey Position: [facility] ED TA [facility] Member Role: Patient Care Provider Care Team Related Persons Name: RONIHANS Address: home [address] [place] [address] Name: CHATO PARKS Address: home [address] [place] [address]
--- OUTSIDE RECORDS SUMMARY | 2023-02-07 20:14 | XMS_ITS | Continuity of Care Document ---
Author Name Unknown Organization [facility] Address [address] [place] [id number]- Care Team Providers Care Personal Lines Sales Rep Name Role Phone Brandin Valdez MD Primary Care Physician Encounter [place] Date(s): 05/25/22 - 05/26/[address] [address]- Encounter Diagnosis Diabetic neuropathy(Final) - 05/26/22 Frequent falls(Final) - 05/26/22 Anticoagulated on Coumadin(Final) - 05/26/22 Discharge Disposition: A-D/C Home Attending Physician: Lazaro Armando MD Admitting Physician: Lazaro Armando MD Referring Physician: Not on Staff, Referring [...] 2 Refills, Maintenance, 04/10/22 10:00:00 EST, Tablet, [facility]/pharmacy #[id number], Partial fill upon patient [...] opioid drug. Start Date: 05/26/22 Status: Ordered Daily Vin oral tablet 1 [...] 02/18/22 7:13:00 EST, Route to Pharmacy Electronically, [facility], Partial fill upon patient [...] 0 Refills, Maintenance, 04/20/22 15:26:00 EST, Tablet, [facility], Partial fill upon patient request if the prescription is for... Start Date: 04/20/22 Stop Date: 05/20/22 Status: Ordered warfarin 5 mg oral tablet See Instructions, Take 1 to 2.5 tablets by mouth daily as directed by the [facility], # 225 tablet, 1 Refills, Maintenance, 04/13/22 17:25:00 EST, Tablet, [facility]/pharmacy #[id number], Partial fill upon patient request if the prescription is for a schedule... Start Date: 04/13/22 Status: Ordered warfarin 5 mg oral tablet See Instructions, Take 1 to 2 and 1/2 tablets by mouth daily as directed by the [facility], # 30 tablet, 4 Refills, Maintenance, 04/20/22 15:25:00 EST, Tablet, [facility], Partial fill upon patient [...] Exam Date Time Procedure Performing Provider Status 05/25/22 5:[address] Cervical Spine W/O Contrast Favio Medina maury; Auth (Verified) Notes: (CT Cervical Spine W/O Contrast) Reason For Exam: Neck trauma, dangerous injury mechanism;Other: RESULT: CT Cervical Spine W/O Contrast CT Head/Brain W/O Contrast, CT Cervical Spine W/O Contrast INDICATION: Hx of Present Illness: Fall; Reason: Trauma; Clinical Question(s): Hematoma TECHNIQUE: Noncontrast head CT using axial technique was reconstructed in axial and coronal planes.Noncontrast spiral CT through the cervical spine was formatted in 3 planes. Automatic tube modulation was used for the cervical spine and iterative dose reconstruction was used for both the head and cervical spine to optimize scan parameters and image quality. CTDIvol Body: 19.00 mGy, DLP Body: 501 mGy*cm. CTDIvol Head: 39.30 mGy, DLP Head: 671 mGy*cm. COMPARISON: 04/19/2022 FINDINGS: Timber Sizer Operator View Findings, Lines and Tubes: None. BRAIN AND EXTRA-AXIAL SPACES: No parenchymal hemorrhage, midline shift, or mass effect. Arreguin-white matter differentiation is wellpreserved. No acute infarct. Negative insular ribbon and hyperdense vessel signs. Ventricles, sulci, and basilar cisterns are normal. Mild low-density white matter changes. No subarachnoid hemorrhage. No subdural or epidural collection. CALVARIUM, SKULL BASE, AND SOFT TISSUES: No fractures or suspicious bony lesions. Partial opacification of bilateral maxillary sinuses, sphenoid sinus and ethmoid sinus,, stable since prior studies, suggestive of chronic sinusitis. Visualized orbits and globes are intact. The extracranial soft tissues are unremarkable. CERVICAL SPINE: No fracture. No acute osseous abnormalities. Normal alignment. No locked or perched facet. Mild multilevel degenerative disc space narrowing andend plate irregularity. OTHER BONES: No acute abnormality. CERVICAL SOFT TISSUES AND LUNG APICES: Bilateral tonsilloliths are noted. Mild asymmetric enlargement of the left palatine tonsil, probably due to hypertrophy. Visualized lung apices are clear. IMPRESSION: No CT evidence of acute abnormality of the head or cervical spine. WSN: [id number] Ordering Physician: Dione Mehta Dictated By: Juana Bennett MD Dictated Date/Time: 05/25/22 6:15 pm Reviewed By: Juana Bennett MD Signed By: Juana Bennett MD Signed Date/Time: 05/25/22 6:15 pm Transcribed By: ROBERT Transcribed Date/Time: 05/25/22 6:05 pm * Exam Date Time Procedure Performing Provider Status 05/25/22 5:[address] Head/Brain W/O Contrast Mars Medina; Auth (Verified) Notes: (CT Head/Brain W/O Contrast) Reason For Exam: Trauma RESULT: CT Head/Brain W/O Contrast CT Head/Brain W/O Contrast, CT Cervical Spine W/O Contrast INDICATION: Hx of Present Illness: Fall; Reason: Trauma; Clinical Question(s): Hematoma TECHNIQUE: Noncontrast head CT using axial technique was reconstructed in axial and coronal planes.Noncontrast spiral CT through the cervical spine was formatted in 3 planes. Automatic tube modulation was used for the cervical spine and iterative dose reconstruction was used for both the head and cervical spine to optimize scan parameters and image quality. CTDIvol Body: 19.00 mGy, DLP Body: 501 mGy*cm. CTDIvol Head: 39.30 mGy, DLP Head: 671 mGy*cm. COMPARISON: 04/19/2022 FINDINGS: Timber Sizer Operator View Findings, Lines and Tubes: None. BRAIN AND EXTRA-AXIAL SPACES: No parenchymal hemorrhage, midline shift, or mass effect. Arreguin-white matter differentiation is wellpreserved. No acute infarct. Negative insular ribbon and hyperdense vessel signs. Ventricles, sulci, and basilar cisterns are normal. Mild low-density white matter changes. No subarachnoid hemorrhage. No subdural or epidural collection. CALVARIUM, SKULL BASE, AND SOFT TISSUES: No fractures or suspicious bony lesions. Partial opacification of bilateral maxillary sinuses, sphenoid sinus and ethmoid sinus,, stable since prior studies, suggestive of chronic sinusitis. Visualized orbits and globes are intact. The extracranial soft tissues are unremarkable. CERVICAL SPINE: No fracture. No acute osseous abnormalities. Normal alignment. No locked or perched facet. Mild multilevel degenerative disc space narrowing andend plate irregularity. OTHER BONES: No acute abnormality. CERVICAL SOFT TISSUES AND LUNG APICES: Bilateral tonsilloliths are noted. Mild asymmetric enlargement of the left palatine tonsil, probably due to hypertrophy. Visualized lung apices are clear. IMPRESSION: No CT evidence of acute abnormality of the head or cervical spine. WSN: [id number] Ordering Physician: Dione Mehta Dictated By: Juana Bennett MD Dictated Date/Time: 05/25/22 6:15 pm Reviewed By: Juana Bennett MD Signed By: Juana Bennett MD Signed Date/Time: 05/25/22 6:15 pm Transcribed By: ROBERT Transcribed Date/Time: 05/25/22 6:05 pm Vital Signs Most recent to oldest [Reference Range]: 1 2 3 Oxygen Saturation [94-100 %] 94 % (05/26/22 5:07 PM) 96 % (05/26/22 1:26 PM) 95 % (05/26/22 11:02 AM) Pulse Rate [55-90 bpm] 88 bpm (05/26/22 5:07 PM) 68 bpm (05/26/22 1:26 PM) 69 bpm (05/26/22 11:02 AM) Blood Pressure [90-138/55-84 mm Hg] 148/85mm Hg *H* (05/26/22 5:07 PM) 174/101mm Hg *H* (05/26/22 1:26 PM) 197/111mm Hg *H* (05/26/22 11:02 AM) Respiratory Rate [16-30 br/min] 18 br/min (05/26/22 5:07 PM) 18 br/min (05/26/22 1:26 PM) 16 br/min (05/26/22 11:02 AM) Temperature [96.8-100.4 DegF] 98.5 DegF (05/26/22 5:07 PM) 97.9 DegF (05/26/22 11:02 AM) 99.6 DegF (05/26/22 6:50 AM) Mode of Delivery (Oxygen) Room air (05/26/22 5:07 PM) Room air (05/26/22 1:26 PM) Room air (05/26/22 11:02 AM) Blood pressure sites Arm, right (05/26/22 5:07 PM) Arm, right (05/25/22 9:27 PM) Arm, right (05/25/22 7:57 PM) Temperature Route Oral (05/26/22 5:07 PM) Oral (05/26/22 11:02 AM) Oral (05/26/22 6:50 AM) Social History Social History Type Response Smoking Status Never (less than 100 in lifetime) entered on: 02/14/22 Sex Note * Prabha GONZALEZ, Lazaro Lopez: PERFORM Event Display: Patient Education Leaflets Authored Date: [id number] Peripheral Neuropathy ?? [id number] Peripheral Neuropathy Peripheral neuropathy is a set of symptoms caused by damage to the peripheral nerves. These nerves are in parts of the body beyond the brain and spinal cord. The condition often affects the arms or legs. It causes a change in physical feeling. Symptoms include weakness in the muscles, tingling, numbness, or shooting pains. Symptoms may be more common at night. Your skin may be extra sensitive to light touch or temperature changes. Peripheral neuropathy may be caused by: ??? Complications from a chronic disease such as diabetes ??? Infections caused by viruses or bacteria ??? Autoimmune disorders ??? Cancer ??? Chemo medicines to treat cancer ??? Injuries A lack of certain vitamins may also lead to it. It may also be caused by exposure to certain illegal drugs or chemicals. Several forms of neuropathy run in families (hereditary). Home care ??? Tell your healthcare provider about all medicines you take. This includes prescription and eqsp-mhr-otjmeiu medicines, vitamins, and herbs. Ask if any of the medicines may be causing your problems. Don't make any changes to prescription medicines without talking with your healthcare provider first. ??? You may be prescribed medicines to help ease the tingling feeling or for pain. Take all medicines as directed. ??? A numb hand or foot may be more likely to be injured. To help protect it: o Always use oven mitts. o Test water temperature with an unaffected hand or foot. o Use caution when trimming nails. File sharp areas. o Wear shoes that fit well to prevent pressure points, blisters, and ulcers. o Inspect your hands and feet carefully at least once a week. This includes thesoles of your feet and between the toes. If you see red areas, sores, or other problems, tell your healthcare provider. ?? Follow-up care Follow up with your healthcare provider as advised. You may need more testing or assessment. ?? When to seek medical advice Call your healthcare provider right away if any of the following occur: ??? Redness, swelling, cracking, or ulcer on any numb area, especially the feet ??? New symptoms of numbness or muscle weaknessnumbness ??? Loss of bowel or bladder control ??? Slurred speech, confusion, or trouble speaking, walking, or seeing ?? Last Reviewed Date: 2021 ?? 5340-2970 [employer]. All rights reserved. This information is not intended as a substitute for professional medical care. Always follow your healthcare professional's instructions. ?? * Prabha GONZALEZ, Lazaro Lopez: PERFORM Event Display: Patient Education Leaflets Authored Date: [id number] Fall with Uncertain Cause ?? [id number] Fall with Uncertain Cause You had a fall today. But the cause of your fall is not certain. Falls can happen due to slipping, tripping, or losing your balance. A fall can also happen from a fainting spell or seizure. A fall can happen for a simple reason (such as tripping over something). But falls in older adults are often caused by a combination of things: ??? Age-related decline in function with worsening balance, stability, vision, and muscle strength ??? Chronic illness, such as heart arrhythmias, heart valve disease, vascular disease, COPD, diabetes, stroke, or arthritis ??? Shoes with lack of support that make you likely to slip or slide ??? Anemia or low blood pressure? Effects or side effects of medicines ??? Fluid loss (dehydration) orrecent alcohol use ??? Hazards in your home or around you, such as??uneven surfaces, slippery ground, an unfamiliar place, or obstacles ??? Something linked to an activity you were doing, such as rushing to the bathroom The cause of your fall today is not certain. So it's possible that it was due to a fainting spell or seizure. This means that it could happen again without warning. If you fall again without a cause,come back to this facility right away for more tests. Or follow up with your healthcare provider asexplained below. It's normal to feel sore and tight in your muscles and back the next day, and not just the muscles you first injured. All the parts of your body are connected. So while at first one area hurts, the next day another may hurt. Also, when you injure yourself, it causes inflammation. This makes your muscles tighten up and hurt more. After that, it should slowly improve over the next few days. Tell your provider if you have any more severe pain. Even without a definite head injury, you can still get a concussion. Concussions and bleeding can still happen, especially if you had a recent injury. Or if you take blood-thinner medicine. You may also have a mild headache. And you may feel tired and even nauseous or dizzy. Home care ??? Rest today and resume your normal activities as soon as you feel normal again. It's best to stay with someone. They can check on you for the next 24 hours to see if you fall again. ??? If you were hurt during the fall, follow your healthcare provider's advice on caring for your injury. ??? If you get lightheaded or dizzy, lie down right away. Or sit and lean forward with your head down. ??? For your safety, until you see your healthcare provider: o Don't drive a car or operate dangerous equipment. o Don't take a bath or shower alone. o Don't swim alone. A condition causing fainting or seizures must be ruled out before doing these activities. ??? You may use acetaminophen or ibuprofen to control pain, unless another pain medicine was prescribed. Talk with your provider beforeusing these medicines if you: o Have chronic liver or kidney disease o Ever had a stomach ulcer or??gastrointestinal bleeding o Take blood- thinning medicines ??? Keep your appointments for any further testing that may have been scheduled for you. ?? Follow-up care Follow up with your healthcare provider, or as advised. If X-rays or a CT scan were done, you will be told if there is a change in the reading, especially if it affects treatment. ?? Call 911 Call 911 if any of these happen: ??? Trouble breathing ??? Confusion ??? Trouble waking up ??? Fainting or loss of consciousness ??? Fast or very slow heart rate ??? Seizure ??? Speech or vision problems ??? Arm or leg weakness ??? Trouble walking or talking, loss of balance, numbness or weakness on one side of your body, or facial droop ?? When to get medical advice Call your healthcare provider right away if any of these happen: ??? Another unexplained fall ??? Dizziness ??? Severe headache ??? Nausea and vomiting ??? Blood in vomit, stools (black or red color) ?? Last Reviewed Date: 2022 ?? 6340-1952 [employer]. All rights reserved. This information is not intended as a substitute for professional medical care. Always follow your healthcare professional's instructions. ?? CT Cervical spine WO contrast * [facility]owers[employer] , CIS S: TRANSCRIJuana Preciado MD: VERIFY Event Display: Result: Authored Date: [id number] CT Head/Brain W/O Contrast, CT Cervical Spine W/O Contrast INDICATION: Hx of Present Illness: Fall; Reason: Trauma; Clinical Question(s): Hematoma TECHNIQUE: Noncontrast head CT using axial technique was reconstructed in axial and coronal planes.Noncontrast spiral CT through the cervical spine was formatted in 3 planes. Automatic tube modulation was used for the cervical spine and iterative dose reconstruction was used for both the head and cervical spine to optimize scan parameters and image quality. CTDIvol Body: 19.00 mGy, DLP Body: 501 mGy*cm. CTDIvol Head: 39.30 mGy, DLP Head: 671 mGy*cm. COMPARISON: 04/19/2022 FINDINGS: Timber Sizer Operator View Findings, Lines and Tubes: None. BRAIN AND EXTRA-AXIAL SPACES: No parenchymal hemorrhage, midline shift, or mass effect. Arreguin-white matter differentiation is wellpreserved. No acute infarct. Negative insular ribbon and hyperdense vessel signs. Ventricles, sulci, and basilar cisterns are normal. Mild low-density white matter changes. No subarachnoid hemorrhage. No subdural or epidural collection. CALVARIUM, SKULL BASE, AND SOFT TISSUES: No fractures or suspicious bony lesions. Partial opacification of bilateral maxillary sinuses, sphenoid sinus and ethmoid sinus,, stable since prior studies, suggestive of chronic sinusitis. Visualized orbits and globes are intact. The extracranial soft tissues are unremarkable. CERVICAL SPINE: No fracture. No acute osseous abnormalities. Normal alignment. No locked or perched facet. Mild multilevel degenerative disc space narrowing andend plate irregularity. OTHER BONES: No acute abnormality. CERVICAL SOFT TISSUES AND LUNG APICES: Bilateral tonsilloliths are noted. Mild asymmetric enlargement of the left palatine tonsil, probably due to hypertrophy. Visualized lung apices are clear. IMPRESSION: No CT evidence of acute abnormality of the head or cervical spine. WSN: [id number] Ordering Physician: Dione Mehta Dictated By: Juana Bennett MD Dictated Date/Time: 05/25/22 6:15 pm Reviewed By: Juana Bennett MD Signed By: Juana Bennett MD Signed Date/Time: 05/25/22 6:15 pm Transcribed By: ROBERT Transcribed Date/Time: 05/25/22 6:[address] Head WO contrast * [facility] , CIS S: TRANSCRIBE Juana Bennett MD: VERIFY Event Display: Result: Authored Date: [id number] CT Head/Brain W/O Contrast, CT Cervical Spine W/O Contrast INDICATION: Hx of Present Illness: Fall; Reason: Trauma; Clinical Question(s): Hematoma TECHNIQUE: Noncontrast head CT using axial technique was reconstructed in axial and coronal planes.Noncontrast spiral CT through the cervical spine was formatted in 3 planes. Automatic tube modulation was used for the cervical spine and iterative dose reconstruction was used for both the head and cervical spine to optimize scan parameters and image quality. CTDIvol Body: 19.00 mGy, DLP Body: 501 mGy*cm. CTDIvol Head: 39.30 mGy, DLP Head: 671 mGy*cm. COMPARISON: 04/19/2022 FINDINGS: Timber Sizer Operator View Findings, Lines and Tubes: None. BRAIN AND EXTRA-AXIAL SPACES: No parenchymal hemorrhage, midline shift, or mass effect. Arreguin-white matter differentiation is wellpreserved. No acute infarct. Negative insular ribbon and hyperdense vessel signs. Ventricles, sulci, and basilar cisterns are normal. Mild low-density white matter changes. No subarachnoid hemorrhage. No subdural or epidural collection. CALVARIUM, SKULL BASE, AND SOFT TISSUES: No fractures or suspicious bony lesions. Partial opacification of bilateral maxillary sinuses, sphenoid sinus and ethmoid sinus,, stable since prior studies, suggestive of chronic sinusitis. Visualized orbits and globes are intact. The extracranial soft tissues are unremarkable. CERVICAL SPINE: No fracture. No acute osseous abnormalities. Normal alignment. No locked or perched facet. Mild multilevel degenerative disc space narrowing andend plate irregularity. OTHER BONES: No acute abnormality. CERVICAL SOFT TISSUES AND LUNG APICES: Bilateral tonsilloliths are noted. Mild asymmetric enlargement of the left palatine tonsil, probably due to hypertrophy. Visualized lung apices are clear. IMPRESSION: No CT evidence of acute abnormality of the head or cervical spine. WSN: [id number] Ordering Physician: Dione Mehta Dictated By: Juana Bennett MD Dictated Date/Time: 05/25/22 6:15 pm Reviewed By: Juana Bennett MD Signed By: Juana Bennett MD Signed Date/Time: 05/25/22 6:15 pm Transcribed By: CSBharti Transcribed Date/Time: 05/25/22 6:05 pm Patient Care team information Care Team Personnel Name: Oziel Tapia RN Position: [facility] RN Member Role: Primary Care Nurse Name: Aria Patel RN Position: [facility] AMB Nurse Member Role: Primary Care [...] (General Medicine) Member Role: PCP Address: Address: [address] [place] [address]- Name: Taras Yuen RN Position: [facility] RN Member Role: Primary Care Nurse Name: Aditi Clifton RN Position: [facility] RN Member Role: Primary Care Nurse Name: Fatemeh Saldaña PharmD Position: [facility] Associate Professional Member Role: Lifetime Consulting Provider Address: Address: [address] [place] [address]- [place] Name: Fatemeh Hernandez Position: [facility] Outreach Member Role: Lifetime Consulting Physician Name: Katt Márquez RN Position: [facility] RN Member Role: Primary Care Nurse Name: Nabeel Agarwal MD Position: [facility] Renal MD Member Role: Lifetime Consulting Physician Address: Address: [address] [place] [address] [address] [facility] [place] [place] [address]- [place] Name: Michaela Funes RN Position: [facility] RN Member Role: Primary Care Nurse Name: Arabella Mcghee Position: [facility] Outreach Member Role: Lifetime Consulting Physician Name: Tangela Segovia LPN Position: [facility] RN Member Role: Primary Care Nurse Name: *[facility], ED Attending Position: [facility] ED Attendings Patient Name: Mae Hurley RN Position: [facility] ED RN W/OE and Tasks Member Role: Patient Care Provider Name: Lazaro Armando MD Position: [facility] ED Medicine MD Member Role: Admitting Physician Address: Address: [address] [place] [address]- Name: Mary Bruce Position: [facility] ED TA [facility] 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
--- OUTSIDE RECORDS SUMMARY | 2023-02-07 20:14 | XMS_ITS | Continuity of Care Document ---
Author Name Unknown Organization [facility] ter Address [address] [place] [address]- Care Team Providers Care Telephone Triage Nurse Name Role Phone Brandin Valdez MD Primary Care Physician [phone] Encounter [facility] Date(s): 12/26/21 - 12/27/[address] [address]- Encounter Diagnosis Suicidal ideation(Final) - 12/27/21 Discharge Disposition: A-D/C Home Attending Physician: Shazia Jain MD Admitting Physician: Shazia Jain MD Referring Physician: Not on Staff, Referring [...] 90 DAYS Start Date: 12/27/21 Status: Ordered hydrALAZINE 25 mg oral tablet 100 mg, Tablet, By Mouth, 12/27/21 9:00:00 EDT Start Date: 12/27/21 Stop Date: 12/27/21 Status: Completed hydrOXYzine hydrochloride 25 mg oral tablet 1 [...] oldest [Reference Range]: 1 2 3 Height 167.6 cm (12/27/21 5:55 AM) 167.6 cm (12/26/21 10:03 PM) 167.6 cm (12/26/21 9:15 PM) Weight 127 kg (12/27/21 5:55 AM) 127 kg (12/26/21 10:03 PM) 127 kg (12/26/21 9:15 PM) Oxygen Saturation [94-100 %] 100 % (12/27/21 7:58 AM) 99 % (12/27/21 5:55 AM) 98 % (12/26/21 10:02 PM) Pulse Rate [55-90 bpm] 66 bpm (12/27/21 7:58 AM) 78 bpm (12/27/21 5:55 AM) 83 bpm (12/26/21 10:02 PM) Body Mass Index [18.5-24.99] 45.21 *>HHI* (12/27/21 5:55 AM) Blood Pressure [90-138/55-84 mm Hg] 142/76mm Hg *H* (12/27/21 8:53 AM) 148/73mm Hg *H* (12/27/21 7:58 AM) 143/77mm Hg *H* (12/27/21 5:55 AM) Respiratory Rate [16-30 br/min] 19 br/min (12/27/21 7:58 AM) 16 br/min (12/27/21 5:55 AM) 18 br/min (12/26/21 10:02 PM) Temperature [96.8-100.4 DegF] 98.1 DegF (12/27/21 7:54 AM) 98.7 DegF (12/26/21 10:02 PM) 97.5 DegF (12/26/21 9:13 PM) Mode of Delivery (Oxygen) Room air (12/27/21 7:58 AM) Room air (12/26/21 10:02 PM) Room air (12/26/21 9:13 PM) Blood pressure sites Arm, right (12/26/21 10:02 PM) Arm, right (12/26/21 9:13 PM) Temperature Route Oral (12/27/21 7:54 AM) Oral (12/26/21 10:02 PM) Oral (12/26/21 9:13 PM) Dry Weight 127 kg (12/27/21 5:55 AM) 127 kg (12/26/21 10:03 PM) 127 kg (12/26/21 9:15 PM) Weight Obtained Via Patient/family state d (12/26/21 9:15 PM) Dry Weight Obtained Via Patient/family s tated (12/26/21 9:15 PM) Care Team Personnel Name: Courtney GONZALEZ, Brandin Stahl Address: [address] [place] [address]
--- OUTSIDE RECORDS SUMMARY | 2023-02-07 20:14 | XMS_ITS | Continuity of Care Document ---
Author Name Unknown Organization [facility] Cardiac Hui jonny Address [address] [place] [address] [place] [address]- Care Team Providers Care Loan Documentation Specialist Name Role Phone Brandin Valdez MD Primary Care Physician Encounter [facility] Date(s): 12/28/21 - 01/27/22 [facility] Cardiac Surgery [address] [place] [id number] Attending Physician: Angel Luis Evans Admitting Physician: Admtr, [id number] Referring Physician: Admtr, [...] 01/18/22 12:57:00 EDT, Route to Pharmacy Electronically, [facility]/pharmacy #[id number], Partialfill upon patient request if the prescription is fo... Start Date: 01/18/22 Status: Ordered topiramate 50 mg oral tablet 1 tablet = 50 mg, By Mouth, 2 times a day Start Date: 01/01/22 Status: Ordered warfarin 5 mg oral tablet 1 tablet = 5 mg, By Mouth, Daily, # 30 tablet, 1 Refills, Maintenance, 01/18/22 12:56:00 EDT, Tablet, [facility]/pharmacy #[id number], Partial fill upon patient [...] 2028 Patient Care team information Personnel Name: Courtney GONZALEZ, Brandin Stahl Address: Address: [address] [place] [id number]
--- OUTSIDE RECORDS SUMMARY | 2023-02-07 20:14 | XMS_ITS | Continuity of Care Document ---
Author Name Unknown Organization [facility] log[facility] Address [address] [place] [address]- Care Team Providers Care Debit Agent Name Role Phone Brandin Valdez MD Primary Care Physician Encounter [facility] Date(s): 07/16/22 - 08/15/22 [facility] [address] [place], [place] [id number]- [place] Allergies, Adverse Reactions, Alerts Substance Reaction [...] Tablet, ; Start Date: 02/20/22 Status: Ordered duloxetine 20 mg oral enteric coated capsule 1 capsule = 20 mg, By Mouth, 2 times a day, # 180 capsule, 0 Refills, Maintenance, 07/04/22 15:33:00 EDT, EC Capsule, Partial fill upon patient request if the prescription is for a schedule II opioiddrug. Start Date: 07/04/22 Status: Ordered escitalopram 10 mg oral tablet [...] 02/18/22 7:13:00 EST, Route to Pharmacy Electronically, [facility], Partial fill upon patient [...] Tablet, ; Start Date: 02/20/22 Status: Ordered Zeke See Instructions, # 1 each, Maintenance, One, 05/26/22 16:32:00 EST, Supply Start Date: 05/26/22 Status: Ordered warfarin 3 mg oral tablet 3 tablet = 9 mg, By Mouth, Daily, dose to be adjusted as recommended by anticoagulation clinic, # 30 tablet, 0 Refills, Maintenance, 04/20/22 15:26:00 EST, Tablet, [facility], Partial fill upon patient request if the prescription is for... Start Date: 04/20/22 Stop Date: 05/20/22 Status: Ordered warfarin 5 mg oral tablet See Instructions, Take 2 to 3 tablets by mouth daily as directed by the [facility], # 270 tablet, 1 Refills, Maintenance, 07/23/22 11:24:00 EDT, Tablet, [facility]/pharmacy #[id number], Partial fill upon patient request if the prescription is for a schedule I... Start Date: 07/23/22 Status: Ordered warfarin 5 mg oral tablet See Instructions, Take 1 to 2 and 1/2 tablets by mouth daily as directed by the [facility], # 30 tablet, 4 Refills, Maintenance, 04/20/22 15:25:00 EST, Tablet, [facility], Partial fill upon patient [...] Team Personnel Name: Oziel Tapia RN Position: [facility] RN Member Role: Primary Care Nurse Name: Aria Patel RN Position: [facility] AMB Nurse Member Role: Primary Care Nurse Name: Summer Donis Position: [facility] RN Member Role: Primary Care Nurse Name: Yaneth Gray RN Position: [facility] RN Member Role: Primary Care Nurse Name: Sagrario Eden Position: [facility] RN Member Role: Primary Care Nurse Name: Brandin Valdez MD Position: [facility] Physician (General Medicine) Member Role: PCP Address: Address: [address] [place] [id number] Name: Taras Yuen RN Position: S RN Member Role: Primary Care Nurse Name: Aditi Clifton RN Position: [facility] RN Member Role: Primary Care Nurse Name: Fatemeh Saldaña PharmD Position: [facility] Associate Professional Member Role: Lifetime Consulting Provider Address: Address: [address] [facility] [place] [address]- Name: Fatemeh Hernandez Position: [facility] Outreach Member Role: Lifetime Consulting Physician Name: Katt Márquez RN Position: [facility] RN Member Role: Primary Care Nurse Name: Nabeel Agarwal MD Position: [facility] Renal MD Member Role: Lifetime Consulting Physician Address: Address: [address] [facility] [address] [facility] [place] [address]- Name: Michaela Funes RN Position: [facility] RN Member Role: Primary Care Nurse Name: Arabella Mcghee Position: [facility] Outreach Member Role: Lifetime Consulting Physician Name: Tangela Segovia LPN Position: [facility] RN Member Role: Primary Care Nurse Care Team Related Persons Name: HANS TAMAYO Address: home [address] [place] [address] Name: CHATO PARKS Address: [address] [place] [address]
--- OUTSIDE RECORDS SUMMARY | 2023-02-07 20:14 | XMS_ITS | Continuity of Care Document ---
Author Name Unknown Organization [facility] ter Address [address] [place] [address]- Care Team Providers Care Director E Learning Name Role Phone Brandin Valdez MD Primary Care Physician Encounter [facility] Date(s): 01/01/22 - 01/04/[address] [id number] Encounter Diagnosis Acute pulmonary embolism(Final) - 01/01/22 Discharge Disposition: A-D/C Home Attending Physician: Tommy Del Rosario DO Admitting Physician: Lorraine Elena MD Referring Physician: Not on Staff, Referring [...] 01/10/22 13:28:00 EDT, 01/03/22 13:28:00 EDT, Tablet, [facility], Partial fill upon [...] oral tablet 25 mg, Tablet, By Mouth, 01/04/22 9:00:00 EDT Start Date: 01/04/22 Stop Date: 01/04/22 Status: Completed enoxaparin 120 mg/0.8 mL injectable solution 0.8 mL = 120 mg, Subcutaneous Injection, 2 times a day, for 21 days, # 33.6 mL, 0 Refills, Acute 01/24/22 13:28:00 EDT, 01/03/22 13:28:00 EDT, Injection, [facility], Partial fill upon patient request if [...] with food Start Date: 12/27/21 Status: Ordered hydrALAZINE 25 mg oral tablet 100 mg, Tablet, By Mouth, 01/04/22 9:00:00 EDT Start Date: 01/04/22 Stop Date: 01/04/22 Status: Completed hydrOXYzine hydrochloride 25 mg oral [...] Health Status Inform ant Severe obesity(Confirmed) Active Results Radiology Reports * Exam Date Time Procedure Performing Provider Status 01/01/22 10:14 AM Chest 2 Views Frontal and Lat Andres Liu; Arslan (Verified) Notes: (Chest 2 Views Frontal and Lat) Reason For Exam: Chest Pain;Other: RESULT: Chest 2 Views Frontal and Lat Chest 2 Views Frontal and Lat Hx of Present Illness: woke up feeling fine this morning, went to work. Episode of dizziness and chest pain, fell forwards hitting head on floor. No LOC, on eliquis. Continues to complain of dizziness and CP.; Reason: Other:; Chest Pain; Clinical Question(s): Other: COMPARISON: CT chest without contrast dated 10/25/2021. Radiograph of the chest dated 08/18/2005. FINDINGS: LINES AND TUBES: None. LUNGS AND PLEURA: There is a 1.2 cm nodule in the left lower lobe, which appears to have been present on the CT chestdated 10/25/2021. Normal pulmonary vascularity. No focal consolidation or pleural effusion. No pneumothorax. HEART, MEDIASTINUM AND JUDI: The heart is enlarged. Aorta is tortuous and uncoiled. BONES AND SOFT TISSUES: No acute abnormality. The right hemidiaphragm is elevated. IMPRESSION: 1. A 1.2 cm left lower lobe nodule appears to been present on the CT chest dated 10/25/2021. Otherwise, no focal consolidation or pleural effusion. 2. Cardiomegaly. 3. Tortuous aorta. WSN: [id number] Ordering Physician: Akhil Page Dictated By: Glenda Reyes MD Dictated Date/Time: 01/01/22 11:48 a Reviewed By: Glenda Reyes MD Signed By: Glenda Reyes MD Signed Date/Time: 01/01/22 11:48 am Transcribed By: ROBERT Transcribed Date/Time: 01/01/22 11:43 am Vital Signs Most recent to oldest [Reference Range]: 1 2 3 Height 168 cm (01/03/22 5:50 PM) 168 cm (01/03/22 8:00 AM) 168 cm (01/02/22 4:24 PM) Weight 126.1 kg (01/02/22 4:24 PM) 127 kg (01/01/22 12:49 PM) 127 kg (01/01/22 9:37 AM) Oxygen Saturation [94-100 %] 98 % (01/04/22 7:00 AM) 97 % (01/04/22 4:00 AM) 98 % (01/04/22 12:00 AM) Pulse Rate [55-90 bpm] 56 bpm (01/04/22 8:43 AM) 51 bpm *L* (01/04/22 7:00 AM) 77 bpm (01/04/22 4:00 AM) Body Mass Index [18.5-24.99 kg/m2] 44.68 kg/m2 *>HHI* (01/02/22 4:24 PM) Body Mass Index [18.5-24.99] 45 *>HHI* (01/01/22 12:49 PM) Blood Pressure [90-138/55-84 mm Hg] 154/83mm Hg *H* (01/04/22 8:43 AM) 154/83mm Hg *H* (01/04/22 8:42 AM) 154/83mm Hg *H* (01/04/22 7:00 AM) Respiratory Rate [16-30 br/min] 18 br/min (01/04/22 7:00 AM) 18 br/min (01/04/22 4:00 AM) 18 br/min (01/04/22 12:00 AM) Temperature [96.8-100.4 DegF] 97.8 DegF (01/04/22 7:00 AM) 98.0 DegF (01/04/22 4:00 AM) 98.2 DegF (01/04/22 12:00 AM) Liters per Minute 0 L/min (01/01/22 3:34 PM) Mode of Delivery (Oxygen) Room air (01/04/22 7:00 AM) Room air (01/04/22 4:00 AM) Room air (01/04/22 12:00 AM) Blood pressure sites Arm, left (01/04/22 7:00 AM) Arm, right (01/04/22 4:00 AM) Arm, right (01/04/22 12:00 AM) Temperature Route Oral (01/04/22 7:00 AM) Oral (01/04/22 4:00 AM) Oral (01/04/22 12:00 AM) Dry Weight 126.1 kg (01/02/22 4:24 PM) 127 kg (01/01/22 12:49 PM) 127 kg (01/01/22 9:37 AM) Weight Obtained Via Bed scale (01/02/22 4:24 PM) Dry Weight Obtained Via Bed scale (01/02/22 4:24 PM) Patient/family stated (01/01/22 9:37 AM) Note * BHSPowerscribe , CIS S: TRANSCRIBE Eric GONZALEZ, Glenda: VERIFY Event Display: Result: Authored Date: Chest 2 Views Frontal and Lat Hx of Present Illness: woke up feeling fine this morning, went to work. Episode of dizziness and chest pain, fell forwards hitting head on floor. No LOC, on eliquis. Continues to complain of dizziness and CP.; Reason: Other:; Chest Pain; Clinical Question(s): Other: COMPARISON: CT chest without contrast dated 10/25/2021. Radiograph of the chest dated 08/18/2005. FINDINGS: LINES AND TUBES: None. LUNGS AND PLEURA: There is a 1.2 cm nodule in the left lower lobe, which appears to have been present on the CT chestdated 10/25/2021. Normal pulmonary vascularity. No focal consolidation or pleural effusion. No pneumothorax. HEART, MEDIASTINUM AND JUDI: The heart is enlarged. Aorta is tortuous and uncoiled. BONES AND SOFT TISSUES: No acute abnormality. The right hemidiaphragm is elevated. IMPRESSION: 1. A 1.2 cm left lower lobe nodule appears to been present on the CT chest dated 10/25/2021. Otherwise, no focal consolidation or pleural effusion. 2. Cardiomegaly. 3. Tortuous aorta. WSN: [id number] Ordering Physician: Akhil Page Dictated By: Glenda Reyes MD Dictated Date/Time: 01/01/22 11:48 a Reviewed By: Glenda Reyes MD Signed By: Glenda Reyes MD Signed Date/Time: 01/01/22 11:48 am Transcribed By: ROBERT Transcribed Date/Time: 01/01/22 11:43 am Care Team Personnel Name: Brandin Valdez MD Address: [address] [place] [address]
--- OUTSIDE RECORDS SUMMARY | 2023-02-07 20:14 | XMS_ITS | Continuity of Care Document ---
Author Name Unknown Organization [facility] Address [address] [place] [address]- Care Team Providers Care Rehab/Pre Vocational Counselor Name Role Phone Brandin Valdez MD Primary Care Physician [phone] [place] [facility]/03[place] - 02/06/[address] [id number] Encounter Diagnosis Fall(Final) - 02/03/22 Discharge Disposition: A-D/C Home Attending Physician: Venkat Rivers MD Admitting Physician: Felix Car MD Referring [...] Dry Weight Start Date: 01/30/22 Status: Ordered escitalopram 10 mg oral tablet [...] Symptoms, 0 Refills, Maintenance, 01/29/22 0:10:00 EDT, [facility], Partial fill upon patient request if the prescription is for a schedule II opioid drug. Start Date: 01/29/22 Status: Ordered hydrOXYzine hydrochloride [...] 02/06/22 11:49:00 EDT, Route to Pharmacy Electronically, [facility]/pharmacy #[id number], Partial fill upon patient request if [...] 14 DAYS Start Date: 01/29/22 Status: Ordered losartan 25 mg oral tablet 25 mg, Tablet, By Mouth, 02/06/22 9:53:00 EDT Start Date: 02/06/22 Stop Date: 02/06/22 Status: Completed losartan 25 mg oral tablet 25 mg, 1, tablet, By Mouth, Daily, # 30 tablet, Refills 0, Tot. Refills 0, Maintenance, 02/06/22 11:49:00 EDT, Route to Pharmacy Electronically, [facility]/pharmacy #[id number], Partial fill upon patient request if the prescription is for a schedule II opioid drug... Start Date: 02/06/22 Status: Ordered topiramate 50 mg oral tablet 1 tablet = 50 mg, By Mouth, 2 times a day Start Date: 01/01/22 Status: Ordered warfarin 5 mg oral tablet 1 tablet = 5 mg, By Mouth, Daily, # 30 tablet, 1 Refills, Maintenance, 01/18/22 12:56:00 EDT, Tablet, [facility]/pharmacy #[id number], Partial fill upon patient request if the prescription is for a schedule II opioid drug., 168, cm, 01/18/22 7:30:00 EDT, Height, 1... Start Date: 01/18/22 Status: Ordered Problem List Condition Confirmation Course Effective Dates Status Health St atus Informant Severe obesity Confirmed Active Tubular adenoma of colon 1 Confirmed 01/18/22 Active 1repeat screening colonoscopy in 2028 Vital Signs Most recent to oldest [Reference Range]: 1 2 3 Height 168 cm (02/06/22 12:32 PM) 168 cm (02/06/22 9:19 AM) 168 cm (02/06/22 4:00 AM) Weight 122 kg (02/04/22 2:29 AM) Oxygen Saturation [94-100 %] 100 % (02/06/22 12:32 PM) 98 % (02/06/22 9:19 AM) 98 % (02/06/22 4:00 AM) Pulse Rate [55-90 bpm] 68 bpm (02/06/22 12:32 PM) 57 bpm (02/06/22 9:19 AM) 64 bpm (02/06/22 4:00 AM) Body Mass Index [18.5-24.99 kg/m2] 43.23 kg/m2 *>HHI* (02/04/22 2:29 AM) Blood Pressure [90-138/55-84 mm Hg] 184/98mm Hg *H* (02/06/22 12:32 PM) 185/90mm Hg *H* (02/06/22 12:29 PM) 185/90mm Hg *H* (02/06/22 9:19 AM) Respiratory Rate [16-30 br/min] 20 br/min (02/06/22 12:32 PM) 19 br/min (02/06/22 9:19 AM) 18 br/min (02/06/22 7:26 AM) Temperature [96.8-100.4 DegF] 98.8 DegF (02/06/22 12:32 PM) 98.3 DegF (02/06/22 9:19 AM) 98.2 DegF (02/06/22 4:00 AM) Mode of Delivery (Oxygen) Room air (02/06/22 12:32 PM) Room air (02/06/22 9:19 AM) Room air (02/06/22 4:00 AM) Blood pressure sites Arm, right (02/06/22 12:32 PM) Arm, right (02/06/22 9:19 AM) Arm, right (02/06/22 4:00 AM) Temperature Route Oral (02/06/22 12:32 PM) Oral (02/06/22 9:19 AM) Oral (02/06/22 4:00 AM) Dry Weight 122 kg (02/04/22 2:29 AM) Patient Care team information Personnel Name: Brandin Valdez MD Address: Address: [address] [place] [address] [place], [place] [address]
--- OUTSIDE RECORDS SUMMARY | 2023-02-07 20:14 | XMS_ITS | Continuity of Care Document ---
Author Name Unknown Organization [facility] Address [address] [facility], [address] Floor, [address] [place] [id number]- Care Team Providers Care It Trainer Name Role Phone Brandin Valdez MD Primary Care Physician Encounter [facility] Date(s): 07/04/22 - 08/03/22 [facility] [address], [address], [address] [place] [id number] Attending Physician: Angel Luis Evans Admitting Physician: AdmAngel Luis quinones Referring Physician: AdmtrAngel Luis Allergies, Adverse Reactions, Alerts Substance Reaction Severity [...] 02/18/22 7:13:00 EST, Route to Pharmacy Electronically, [facility], Partial fill upon [...] 0 Refills, Maintenance, 04/20/22 15:26:00 EST, Tablet, [facility], Partial fill upon patient request if the prescription is for... Start Date: 04/20/22 Stop Date: 05/20/22 Status: Ordered warfarin 5 mg oral tablet See Instructions, Take 2 to 3 tablets by mouth daily as directed by the [facility], # 270 tablet, 1 Refills, Maintenance, 07/23/22 11:24:00 EDT, Tablet, [facility]/pharmacy #[id number], Partial fill upon patient request if the prescription is for a schedule I... Start Date: 07/23/22 Status: Ordered warfarin 5 mg oral tablet See Instructions, Take 1 to 2 and 1/2 tablets by mouth daily as directed by the [facility], # 30 tablet, 4 Refills, Maintenance, 04/20/22 15:25:00 EST, Tablet, [facility], Partial fill upon [...] Aria Patel RN Position: [facility] Nurse Member Role: Primary Care Nurse Name: Summer Donis Position: [facility] RN Member Role: Primary Care Nurse Name: Yaneth Gray RN Position: [facility] RN Member Role: Primary Care Nurse Name: Sagrario Eden Position: [facility] RN Member Role: Primary Care Nurse Name: Brandin Valdez MD Position: [facility] Physician (General Medicine) Member Role: PCP Address: Address: [address] [place] [address]- [place] Name: Taras Yuen RN Position: S RN Member Role: Primary Care Nurse Name: Aditi Clifton RN Position: S RN Member Role: Primary Care Nurse Name: Fatemeh Saldaña PharmD Position: [facility] Associate Professional Member Role: Lifetime Consulting Provider Address: Address: [address] [place], [place] [address] [address]- [place] Name: Fatemeh Hernandez Position: [facility] Outreach Member Role: Lifetime Consulting Physician Name: Katt Márquez RN Position: [facility] RN Member Role: Primary Care Nurse Name: Nabeel Agarwal MD Position: [facility] Renal MD Member Role: Lifetime Consulting Physician Address: Address: [address] [facility] [address] [facility] [place] [address]- [place] Name: Michaela Funes RN Position: S RN Member Role: Primary Care Nurse Name: Arabella cMghee Position: [facility] Outreach Member Role: Lifetime Consulting Physician Name: Tangela Segovia LPN Position: S RN Member Role: Primary Care Nurse Care Team Related Persons Name: HANS TAMAYO Address: home [address] [place] [address] Name: CHATO PARKS Address: home [address] [place] [address]
--- OUTSIDE RECORDS SUMMARY | 2023-02-07 20:14 | XMS_ITS | Continuity of Care Document ---
Author Name Unknown Organization [facility] Address [address], [address], [address] [place] [id number]- Care Team Providers Care Inspector Brake Lining Name Role Phone Brandin Valdez MD Primary Care Physician [place] [facility] [place]): [place] - 12/26/22 [facility] [address], [address], [address] [place] [id number] Attending Physician: Hemal Gonzales MD Admitting Physician: Hemal Gonzales MD Allergies, Adverse Reactions, Alerts Substance Reaction [...] 09/24/22 16:47:00 EDT, Route to Pharmacy Electronically, [facility], Partial fill upon patient request if the prescription is for a schedule II opioi... Start Date: 09/24/22 Status: Ordered atorvastatin 10 mg oral tablet 1 tablet = 10 mg, By Mouth, Daily, # 30 tablet, 0 Refills, Maintenance, 09/24/22 14:23:00 EDT, Tablet, [facility], Partial fill upon patient request if the prescription is for a schedule II opioid drug., 170.7, cm, 09/23/22 22:36:00 EDT,... Start Date: 09/24/22 Status: Ordered brimonidine 0.2% ophthalmic solution See Instructions, 1 drops Every 8 hours to right eye, # 15 mL, 0 Refills, Maintenance, 09/24/22 14:22:00 EDT, Ophth Solution, [facility], Partial fill upon patient request if the prescription is for a schedule II opioid drug., 1 drops Ev... Start Date: 09/24/22 Status: Ordered carvedilol 3.125 mg oral tablet 3.125 mg, 1, tablet, By Mouth, 2 times a day, # 60 tablet, Refills 0, Tot. Refills 0, Maintenance, 09/24/22 14:22:00 EDT, Route to Pharmacy Electronically, [facility], Partial fill uponpatient request if the prescription is for a schedu... Start Date: 09/24/22 Status: Ordered duloxetine 30 mg oral enteric coated capsule 1 capsule = 30 mg, By Mouth, 2 times a day, # 60 capsule, 0 Refills, Maintenance, 09/24/22 16:47:00EDT, Capsule, [facility], Partial fill upon patient request if the prescription is for a schedule II opioid drug., 170.7, cm, 09/23/22 22... Start Date: 09/24/22 Status: Ordered Entresto 24 mg-26 mg oral tablet 1 tablet, By Mouth, 2 times a day, # 60 tablet, 0 Refills, Maintenance, 09/24/22 14:23:00 EDT, Tablet, [facility], Partial fill upon patient request if the prescription is for a schedule II opioid drug., 1 tablet By Mouth 2 times a day,... Start Date: 09/24/22 Status: Ordered escitalopram 10 mg oral tablet 2 tablet = 20 mg, By Mouth, Daily, # 60 tablet, 0 Refills, Maintenance, 09/24/22 16:46:00 EDT, Tablet, [facility], Partial fill upon patient request [...] Refills, Maintenance, 09/24/22 16:46:00 EDT, Tablet, [facility], Partial fill upon patient request if the prescription is for a schedule II opioid drug., 170.7, cm, 06... Start Date: 09/24/22 Status: Ordered midodrine 5 mg oral tablet 5 mg, 1, tablet, By Mouth, 3 times a day, # 90 tablet, Refills 0, Tot. Refills 0, Maintenance, 09/24/22 14:23:00 EDT, Route to Pharmacy Electronically, [facility], Partial fill upon patient request if the prescription is for a schedule I... Start Date: 09/24/22 Status: Ordered topiramate 100 mg oral tablet 1 tablet = 100 mg, By Mouth, 2 times a day, # 60 tablet, 0 Refills, Maintenance, 09/24/22 16:46:00 EDT, Tablet, [facility], Partial fill upon patient [...] 1 Refills, Maintenance, 07/23/22 11:24:00 EDT, Tablet, [id number], Partial fill upon patient request if the prescription is for a schedule I... Start Date: 07/23/22 Status: Ordered warfarin 5 mg oral tablet 2-3 tablets, By Mouth, Daily, TAKE 2 TO 3 TABLETS PO DAILY DIRECTED BY [facility], # 90 tablet, 9 Refills, Maintenance, 09/25/22 11:40:00 EDT, [facility], Partial fill upon patient request if the prescription is for a schedule II... Start Date: 09/25/22 Status: Ordered warfarin 5 mg oral tablet See Instructions, Take 1 to 2 and 1/2 tablets by mouth daily as directed by the [facility], # 30 tablet, 4 Refills, Maintenance, 04/20/22 15:25:00 EST, Tablet, [facility], Partial fill upon patient request if the prescription is for... Start Date: 04/20/22 Status: Ordered warfarin 5 mg oral tablet See Instructions, take 2-3 tabs by mouth daily as directed by the [facility]mad[facility] clinic, # 270 tablet, 2Refills, Maintenance, 10/25/22 10:01:00 EDT, [facility]/pharmacy #[id number], Partial fill upon patient request if [...] Team Personnel Name: Oziel Tapia RN Position: [facility] RN Member Role: Primary Care Nurse Name: Aria Patel RN Position: [facility] AMB Nurse Member Role: Primary Care Nurse Name: Summer Donis Position: [facility] RN Member Role: Primary Care Nurse Name: Albert Hernandez RN Position: [facility] RN Member Role: Primary Care Nurse Name: Yaneth Gray RN Position: [facility] RN Member Role: Primary Care Nurse Name: Sagrario Eden Position: [facility] RN Member Role: Primary Care Nurse Name: Brandin Valdez MD Position: [facility] Physician - Primary Care Member Role: PCP Address: Address: [address] [place] [id number]- Name: Taras Yuen RN Position: S RN Member Role: Primary Care Nurse Name: Aditi Clifton RN Position: [facility] RN Member Role: Primary Care Nurse Name: Mary Fisher Position: S RN Member Role: Primary Care Nurse Name: Fatemeh Saldaña PharmD Position: [facility] Associate Professional Member Role: Lifetime Consulting Provider Address: Address: [address] [place] [id number]- Name: Fatemeh Hernandez Position: [facility] Outreach Member Role: Lifetime Consulting Physician Name: Katt Márquez RN Position: S RN Member Role: Primary Care Nurse Name: Nabeel Agarwal MD Position: [facility] Renal MD Member Role: Lifetime Consulting Physician Address: Address: [address] [place] [address] [address] [facility] [place] [address]- Name: Michaela Funes RN Position: [facility] RN Member Role: Primary Care Nurse Name: Susy Jose RN Position: [facility] RN Member Role: Primary Care Nurse Name: Brandon Stevens MD Position: [facility] Renal MD Member Role: Lifetime Consulting Physician Address: Address: [address] [place] [address] [facility] [place] [address]- Name: Arabella Mcghee Position: [facility] Outreach Member Role: Lifetime Consulting Physician Name: Tangela Segovia LPN Position: [facility] RN Member Role: Primary Care Nurse Care Team Related Persons Name: HANS TAMAYO Address: [address] [place] [address] Name: CHATO PARKS Address: [address] [place] [address]
--- OUTSIDE RECORDS SUMMARY | 2023-02-07 20:14 | XMS_ITS | Continuity of Care Document ---
Author Name Unknown Organization [facility] Address [address] [place] [id number]- Care Team Providers Care Director Of Medical Review Name Role Phone Brandin Valdez MD Primary Care Physician [phone] Encounter [facility] [place] Date(s): 12/17/22 - 12/17/[address] [address]- Encounter Diagnosis Depression(Final) - 12/17/22 Anxiety(Final) - 12/17/22 Discharge Disposition: A-D/C Home Attending Physician: Juancarlos Donis MD Admitting Physician: Juancarlos Donis MD Referring Physician: Not on Staff, Referring [...] 09/24/22 16:47:00 EDT, Route to Pharmacy Electronically, [facility], Partial fill upon patient request if the prescription is for a schedule II opioi... Start Date: 09/24/22 Status: Ordered atorvastatin 10 mg oral tablet 1 tablet = 10 mg, By Mouth, Daily, # 30 tablet, 0 Refills, Maintenance, 09/24/22 14:23:00 EDT, Tablet, [facility], Partial fill upon patient request if the prescription is for a schedule II opioid drug., 170.7, cm, 09/23/22 22:36:00 EDT,... Start Date: 09/24/22 Status: Ordered brimonidine 0.2% ophthalmic solution See Instructions, 1 drops Every 8 hours to right eye, # 15 mL, 0 Refills, Maintenance, 09/24/22 14:22:00 EDT, Ophth Solution, [facility], Partial fill upon patient request if the prescription is for a schedule II opioid drug., 1 drops Ev... Start Date: 09/24/22 Status: Ordered carvedilol 3.125 mg oral tablet 3.125 mg, 1, tablet, By Mouth, 2 times a day, # 60 tablet, Refills 0, Tot. Refills 0, Maintenance, 09/24/22 14:22:00 EDT, Route to Pharmacy Electronically, [facility], Partial fill uponpatient request if the prescription is for a schedu... Start Date: 09/24/22 Status: Ordered duloxetine 30 mg oral enteric coated capsule 1 capsule = 30 mg, By Mouth, 2 times a day, # 60 capsule, 0 Refills, Maintenance, 09/24/22 16:47:00EDT, Capsule, [facility], Partial fill upon patient request if the prescription is for a schedule II opioid drug., 170.7, cm, 09/23/22 22... Start Date: 09/24/22 Status: Ordered Entresto 24 mg-26 mg oral tablet 1 tablet, By Mouth, 2 times a day, # 60 tablet, 0 Refills, Maintenance, 09/24/22 14:23:00 EDT, Tablet, [facility], Partial fill upon patient request if the prescription is for a schedule II opioid drug., 1 tablet By Mouth 2 times a day,... Start Date: 09/24/22 Status: Ordered escitalopram 10 mg oral tablet 2 tablet = 20 mg, By Mouth, Daily, # 60 tablet, 0 Refills, Maintenance, 09/24/22 16:46:00 EDT, Tablet, [facility], Partial fill upon patient request [...] 0 Refills, Maintenance, 09/24/22 16:46:00 EDT, Tablet, [facility], Partial fill upon patient request if the prescription is for a schedule II opioid drug., 170.7, cm, 06... Start Date: 09/24/22 Status: Ordered midodrine 5 mg oral tablet 5 mg, 1, tablet, By Mouth, 3 times a day, # 90 tablet, Refills 0, Tot. Refills 0, Maintenance, 09/24/22 14:23:00 EDT, Route to Pharmacy Electronically, [facility], Partial fill upon patient request if the prescription is for a schedule I... Start Date: 09/24/22 Status: Ordered topiramate 100 mg oral tablet 1 tablet = 100 mg, By Mouth, 2 times a day, # 60 tablet, 0 Refills, Maintenance, 09/24/22 16:46:00 EDT, Tablet, [facility], Partial fill upon patient request if [...] 1 Refills, Maintenance, 07/23/22 11:24:00 EDT, Tablet, [id number], Partial fill upon patient request if the prescription is for a schedule I... Start Date: 07/23/22 Status: Ordered warfarin 5 mg oral tablet 2-3 tablets, By Mouth, Daily, TAKE 2 TO 3 TABLETS PO DAILY DIRECTED BY [facility], # 90 tablet, 9 Refills, Maintenance, 09/25/22 11:40:00 EDT, [facility], Partial fill upon patient request if the prescription is for a schedule II... Start Date: 09/25/22 Status: Ordered warfarin 5 mg oral tablet See Instructions, Take 1 to 2 and 1/2 tablets by mouth daily as directed by the [facility], # 30 tablet, 4 Refills, Maintenance, 04/20/22 15:25:00 EST, Tablet, [facility], Partial fill upon patient request if the prescription is for... Start Date: 04/20/22 Status: Ordered warfarin 5 mg oral tablet See Instructions, take 2-3 tabs by mouth daily as directed by the coumad[facility] clinic, # 270 tablet, 2Refills, Maintenance, 10/25/22 10:01:00 EDT, [id number], Partial fill upon patient request [...] Range]: 1 2 Oxygen Saturation [94-100 %] 99 % (12/17/22 3:49 PM) 99 % (12/17/22 11:01 AM) Pulse Rate [55-90 bpm] 86 bpm (12/17/22 3:49 PM) 102 bpm *H* (12/17/22 11:01 AM) Blood Pressure [90-138/55-84 mm Hg] 132/ 86mm Hg (12/17/22 3:49 PM) 141/97mm Hg *H* (12/17/22 11:01 AM) Respiratory Rate [16-30 br/min] 18 br/mi n (12/17/22 3:49 PM) 18 br/min (12/17/22 11:01 AM) Temperature [96.8-100.4 DegF] 97.1 DegF (12/17/22 11:01 AM) Mode of Delivery (Oxygen) Room air (12/17/22 3:49 PM) Room air (12/17/22 11:01 AM) Blood pressure sites Arm, right (12/17/22 3:49 PM) Arm, right (12/17/22 11:01 AM) Temperature Route Oral (12/17/22 11:01 AM) Social History Social History Type Response Smoking Status Never (less than 100 in lifetime) entered on: 02/14/22 Sex Patient Care team information Care Team Personnel Name: Oziel Tapia RN Position: [facility] RN Member Role: Primary Care Nurse Name: Aria Patel RN Position: [facility] AMB Nurse Member Role: Primary Care Nurse Name: Summer Donis Position: [facility] RN Member Role: Primary Care Nurse Name: Albert Hernandez RN Position: [facility] RN Member Role: Primary Care Nurse Name: Yaneth Gray RN Position: [facility] SN RN Member Role: Primary Care Nurse Name: Sagrario Eden Position: [facility] RN Member Role: Primary Care Nurse Name: Brandin Valdez MD Position: [facility] Physician - Primary Care Member Role: PCP Address: Address: [address] [place] [id number]- Name: Taras Yuen RN Position: [facility] RN Member Role: Primary Care Nurse Name: Aditi Clifton RN Position: [facility] RN Member Role: Primary Care Nurse Name: Mary Fisher Position: [facility] RN Member Role: Primary Care Nurse Name: Fatemeh Saldaña PharmD Position: [facility] Associate Professional Member Role: Lifetime Consulting Provider Address: Address: [address] [place], [place] [address] [address]- [place] Name: Fatemeh Hernandez Position: S Outreach Member Role: Lifetime Consulting Physician Name: Katt Márquez RN Position: [facility] RN Member Role: Primary Care Nurse Name: Nabeel Agarwal MD Position: [facility] Renal MD Member Role: Lifetime Consulting Physician Address: Address: [address] [place] [address] [address] [facility] [place] [address]- [place] Name: Michaela Funes RN Position: [facility] RN Member Role: Primary Care Nurse Name: Susy Jose RN Position: [facility] RN Member Role: Primary Care Nurse Name: Brandon Stevens MD Position: [facility] Renal MD Member Role: Lifetime Consulting Physician Address: Address: [address] [place] [address] [facility] [place] [address]- Name: Arabella Mcghee Position: [facility] Outreach Member Role: Lifetime Consulting Physician Name: Tangela Segovia LPN Position: [facility] RN Member Role: Primary Care Nurse Name: Yaneth Krishna RN Position: [facility] ED RN W/OE and Tasks Member Role: Patient Care Provider Name: Diana Cronin DO Position: [facility] Resident Member Role: ED Resident Address: Address: [address] [place] [address]- Name: Katelynn Monroe Position: [facility] ED TA [facility] Member Role: Municipal Firefighter Name: Jewels GONZALEZ, Juancarlos Garsia Position: [facility] Resident Member Role: Admitting Physician Address: Address: [address] [place] [address] Care Team Related Persons Name: HANS TAMAYO Address: [address] [place] [address] Name: CHATO PARKS Address: [address] [place] [address]
--- OUTSIDE RECORDS SUMMARY | 2023-02-07 20:14 | XMS_ITS | Continuity of Care Document ---
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 Name Role Phone Brandin Valdez MD Primary Care Physician Encounter [facility] Date(s): 02/20/22 - 02/23/[address] [id number] Discharge Disposition: A-D/C Home Attending Physician: Obie GONZALEZ, Shahid Harry Admitting Physician: Trupti Hastings MD Referring Physician: Not on Staff, Referring [...] Tablet, ; Start Date: 02/20/22 Status: Ordered enoxaparin 120 mg/0.8 mL injectable solution 0.8 mL = 120 mg, Subcutaneous Injection, Every 12 hours, for 14 days, # 22.4 mL, 0 Refills, Acute 03/04/22 7:13:00 EST, 02/18/22 7:13:00 EST, Injection, [facility], Partial fill [...] Symptoms, 0 Refills, Maintenance, 01/29/22 0:10:00 EDT, Anderson, ; Start Date: 01/29/22 Status: Ordered hydrOXYzine hydrochloride 25 mg oral tablet 1 tablet = 25 mg, By Mouth, Daily at bedtime, PRN for anxiety, 0 Refills, Maintenance, 12/27/21 8:24:00 EDT, Tablet, ; Start Date: 12/27/21 Status: Ordered Imodium A-D 2 mg oral tablet 2 mg, 1, tablet, By Mouth, Every 4 hours, PRN, # 60 tablet, Refills 0, Tot. Refills 0, Acute 03/09/22 11:49:00 EST, for loose stool, 02/06/22 11:49:00 EDT, Route to Pharmacy Electronically, [facility]acy #[id number], Partial fill upon patient request if [...] 02/18/22 7:13:00 EST, Route to Pharmacy Electronically, [facility], Partial fill upon patient request if the prescription is for a schedule II opioid... Start Date: 02/18/22 Status: Ordered losartan 50 mg oral tablet 50 mg, Tablet, By Mouth, 02/23/22 9:00:00 EST Start Date: 02/23/22 Stop Date: 02/23/22 Status: Completed metFORMIN 1000 mg oral tablet [...] Date: 02/23/22 Stop Date: 03/25/22 Status: Ordered Problem List Condition Confirmation Course Effective Dates Status Health St atus Informant Severe obesity Confirmed Active Tubular adenoma of colon 1 Confirmed 01/18/22 Active 1repeat screening colonoscopy in 2028 Results Orders for Microbiology Reports Name Date Blood Culture 02/20/22 Blood Culture #2 02/20/22 Microbiology Reports TEST:Blood Culture, Second Order STATUS:Unauthenticated BODY SITE: SOURCE:Blood COLLECTED DATE/TIME:02/20/22 8:35 AM Blood Culture, Second Order SPECIMEN DESCRIPTION : BLOOD NOSITE SPECIAL REQUESTS : NONE CULTURE : NO GROWTH 3 DAYS REPORT STATUS : PRELIMINARY REPORT TEST:Blood Culture STATUS:Unauthenticated BODY SITE: SOURCE:Blood COLLECTED DATE/TIME:02/20/22 8:15 AM Blood Culture SPECIMEN DESCRIPTION : BLOOD NOSITE SPECIAL REQUESTS : NONE CULTURE : NO GROWTH 3 DAYS REPORT STATUS : PRELIMINARY REPORT Radiology Reports * Exam Date Time Procedure Performing Provider Status 02/20/22 12:[address] Head/Brain W/O Contrast Gloria Mathews (Verified) Notes: (CT Head/Brain W/O Contrast) Reason For Exam: Trauma RESULT: CT Head/Brain W/O Contrast Examination: Noncontrast head CT performed on 02/20/2022. History: Trauma. Technique and findings: Contiguous 5 mm axial images were obtained from the skull base to the vertex without intravenous contrast. A dose modulated weight-based protocol was used. Comparison is made to a prior study dated 02/14/2022. A mucous retention cyst or polyp within the left maxillary sinus is noted. The ventricular system and subarachnoid spaces are within normal limits. A moderate degree of periventricular and deep subcortical white matter low- attenuation is noted, consistent with chronic smallvessel ischemic change. There is no intracranial hemorrhage, mass effect, or midline shift. No intra- or extra-axial fluid collections are identified. The osseous structures are unremarkable. Impression: There is no acute intracranial abnormality. WSN: [id number] Ordering Physician: Lalito Kendall Dictated By: Christina Vital MD Dictated Date/Time: 02/20/22 12:33 p Reviewed By: Christina Vital MD Signed By: Christina Vital MD Signed Date/Time: 02/20/22 12:33 pm Transcribed By: ROBERT Transcribed Date/Time: 02/20/22 12:32 pm * Exam Date Time Procedure Performing Provider Status 02/20/22 8:40 AM Chest Portable Luz Chirinos (V erified) Notes: (Chest Portable) Reason For Exam: Shortness of Breath RESULT: Chest Portable Examination: Portable chest performed on 02/20/2022. History: Shortness of breath. Findings: A frontal view of the chest is compared to a prior study dated 01/28/2022. There is stable enlargement of the cardiac silhouette. Prominence of the pulmonary vasculature is noted without overt edema. Osteophyte formation throughout the thoracic spine is identified. IMPRESSION: Minimal pulmonary vascular congestion. WSN: [id number] Ordering Physician: Lalito Kendall Dictated By: Christina Vital MD Dictated Date/Time: 02/20/22 8:45 am Reviewed By: Christina Vital MD Signed By: Christina Vital MD Signed Date/Time: 02/20/22 8:45 am Transcribed By: ROBERT Transcribed Date/Time: 02/20/22 8:44 am Vital Signs Most recent to oldest [Reference Range]: 1 2 3 Height 168 cm (02/23/22 9:52 AM) 168 cm (02/23/22 5:51 AM) 168 cm (02/22/22 4:15 PM) Weight 114 kg (02/21/22 1:58 PM) Oxygen Saturation [94-100 %] 97 % (02/23/22 9:52 AM) 99 % (02/23/22 5:51 AM) 98 % (02/22/22 9:00 PM) Pulse Rate [55-90 bpm] 62 bpm (02/23/22 9:52 AM) 54 bpm *L* (02/23/22 5:51 AM) 60 bpm (02/22/22 9:00 PM) Body Mass Index [18.5-24.99 kg/m2] 40.39 kg/m2 *>HHI* (02/21/22 1:58 PM) Blood Pressure [90-138/55-84 mm Hg] 153/97mm Hg *H* (02/23/22 9:52 AM) 164/89mm Hg *H* (02/23/22 9:08 AM) 169/85mm Hg *H* (02/23/22 5:51 AM) Respiratory Rate [16-30 br/min] 18 br/min (02/23/22 9:52 AM) 20 br/min (02/23/22 5:51 AM) 18 br/min (02/22/22 9:00 PM) Temperature [96.8-100.4 DegF] 97.3 DegF (02/23/22 9:52 AM) 98.1 DegF (02/23/22 5:51 AM) 98.2 DegF (02/22/22 9:00 PM) Mode of Delivery (Oxygen) Room air (02/23/22 9:52 AM) Room air (02/23/22 5:51 AM) Room air (02/22/22 9:00 PM) Blood pressure sites Arm, left (02/23/22 9:52 AM) Arm, left (02/23/22 5:51 AM) Arm, right (02/22/22 9:00 PM) Temperature Route Oral (02/23/22 9:52 AM) Oral (02/23/22 5:51 AM) Oral (02/22/22 9:00 PM) Weight Obtained Via Bed scale (02/21/22 1:58 PM) Social History Social History Type Response Smoking Status Never (less than 100 in lifetime) entered on: 02/14/22 Sex Consult note * Orlando Thomas DO: PERFORM, SIGN, VERIFY Event Display: Consult Authored Date: Patient: MONSTER BEAR Age: 51 years Sex: Male : 1970 Associated Diagnoses: None Author: Orlando Thomas DO [facility] Consultation Note Consulting Provider: Orlando Thomas DO Reason for Consult: SHADIA on CKD. History of Present Illness 51-year-old male with past medical history of T2DM, HTN, hyperlipidemia, and ascending aortic aneurysm, recurrent pulm embolism now on warfarin who presented to the hospital with complaints of lightheadedness and nausea with one episode of vomiting while he was at work. On EMS arrival he was noted to be hypotensive with systolic blood pressure 73 and is given IV fluid. S-Cr noted to be elevated 2.7 mg/dL. ROS is otherwise negative. Review of Systems Gastrointestinal: Nausea, Vomiting. Neurologic: Alert & oriented x4. All Other ROS: Noncontributory. Health Status Allergies: Allergic Reactions (Selected) Severity Not Documented Vancomycin- No reactions were documented. Current Medications: Medications reviewed. Problems: All Problems Severe obesity / SNOMED CT [id number] / Confirmed Tubular adenoma of colon / SNOMED CT [id number] / Confirmed repeat screening colonoscopy in 2028 Family History: Reviewed in chart Social History Not Significant. Physical Examination Vital Signs: Reviewed Results: Today's results : (Date Range: 02/21/2021 0:00 EST - 02/21/2022 13:15 EST). General: Alert and oriented, No acute distress. Eye: EOMI. HENT: Normocephalic. Neck: Supple. Respiratory: Lungs CTA. Cardiovascular: Normal rate. Integumentary: Warm, Dry. Neurologic: Alert, No focal defects. Psychiatric: Cooperative. Results Review General results Today's results 02/21/2022 6:20 EST WBC 7.7 k/mm3 RBC 4.21 m/mm3 L Hgb 11.1 Gm/dL L Hct 35.3 % L MCV 83.8 femtoliters MCH 26.4 pg L MCHC 31.4 g/dL L Platelet Count 225 k/mm3 RDW-SD 47.1 femtoliters H MPV 12.5 femtoliters H Nucleated RBC (Automated) 0.0 #/100 WBC'S Abs. NRBC 0.0 k/mm3 INR 1.4 H Protime (PT) 14.3 seconds H Sodium 145 mmol/L Potassium 3.9 mmol/L Chloride 108 mmol/L H Bicarbonate Level 26 mmol/L Anion Gap 11 BUN 35 mg/dL H Creatinine-Blood 2.0 mg/dL H Estimated GFR Creatinine 41 ML/MIN/1.73 M2 Magnesium 1.8 mg/dL Impression and Plan 51-year-old male with past medical history of T2DM, HTN, hyperlipidemia, and ascending aortic aneurysm, recurrent pulm embolism now on warfarin who presented to the hospital with complaints of lightheadedness and nausea with one episode of vomiting while he was at work. On EMS arrival he was noted to be hypotensive with systolic blood pressure 73 and is given IV fluid. S-Cr noted to be elevated 2.7 mg/dL. Nephrology consulted to assist in management of his care. Assessment and Plan: A 51-year-old gentleman with acute kidney injury. Acute kidney injury in this patient likely secondary to volume depletion. I have added UA to also assess for glucosuria which may have precipitated further osmotic diuresis and IV depletion. U-Lytes added to assess f-urea. Agree with small volume boluses of ivf's with reassessment of renal function given HFrEF and susceptibility to hypervolemia. renal panel daily. monitor uop. avoidance of nsaids. hold acei/arb, loop diuretic for next 24 hours. When S-Cr at BL can consider restarting. Thank you for the courtesy of this consult, ELLIOTT will continue monitoring the patient along with you please do not hesitate to call us with any further questions Orlando hTomas, DO [facility].[address] , [address] Available by [employer] History and physical note * Venkata GONZALEZ, Trupti: PERFORM, MODIFY Event Display: History and Physical Hospital Authored Date: Patient: ??MONSTER BEAR ? Age:??51 Years?Sex:??Male?:??1970?? Chief Complaint/Reason for Consultation From work. pt c/o lightheadedness. had BM, vomited. found to be hypotensive. also c/o blurred vision and photophobia. UTO IV access. History of Present Illness ?? History obtained from??patient in the ER and from chart review ?? 51-year-old man with history of recurrent pulm embolism??now on warfarin,??diabetes mellitus, hypertension, upper lipidemia, heart failure with reduced ejection fraction??and with recent admission from 02/16-02/18??for blurred visions and found to have??multiple acute/subacute infarction thought to be embolic???discharged on??enoxaparin and warfarin due to subtherapeutic INR??presented this time??with lightheadedness??and nausea while he was at work ?? Patient says that since discharge??he has been doing??well.?? Denies any??fever chills or cough. ??Denies any chest pain, shortness of breath or palpitation.?? He does have chronic diarrhea but says it has not changed at all and usually has been having 1 episode per day since discharge.?Denies any nausea vomiting. ??Says he has been eating??well. ?? 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 ??Denies any loss of consciousness.?? He thought it was because of his anxiety??as it says there is a lot of stress at work.?? On EMS arrival he was noted to be hypotensive with systolic blood pressure 73??and is given IV fluid. ??On arrival to ER his systolic blood pressure was 93 ?? Vital signs otherwise stable Routine labs??with mild leukocytosis WBC 12.5 Creatinine elevated 2.7??lactate elevated 2.5??with repeat 1 after IV fluid??improved Chest x-ray read as a minimal pulmonary vascular congestion CT scan of the head with no acute finding ?? At the time of my exam, patient states that??he feels well. ??Denies any nausea vomiting. ??Denies any dizziness or lightheadedness ?? Review of Systems ?? Rest of ROS negative Objective ? Vital Signs?? Temperature: 97.3 DegF (02/20/22 08:31:00) Temperature Route: Oral (02/20/22 08:31:00) Pulse Rate: 55 bpm (02/20/22 14:25:00) Respiratory Rate: 16 br/min (02/20/22 14:25:00) Systolic Blood Pressure: 123 mm Hg (02/20/22 14:25:00) Diastolic Blood Pressure: 70 mm Hg (02/20/22 14:25:00) Blood pressure sites: Arm, left (02/20/22 14:25:00) Mean Arterial Pressure: 71 mm Hg (02/20/22 08:31:00) Pulse Pressure: 53 mm Hg (02/20/22 14:25:00) Oxygen Saturation: 99 % (02/20/22 14:25:00) Mode of Delivery (Oxygen): Room air (02/20/22 14:25:00) Early Warning Score: 2 (02/20/22 14:25:48) ? Physical Exam ?? General???lying flat in bed, no acute distress at rest HEENT???atraumatic Respiratory???no wheezing or crackles. ??Bilateral equal air entry Cardiovascular???normal heart sounds noted GI???abdomen soft, nontender, bowel sound present Neuro-??? awake oriented x3. ??Speech is clear. ??No focal deficit Lower extremity???chronic venous stasis changes?? Psych???slightly anxious Assessment/Plan ?? 51-year-old man with history of recurrent pulm embolism??now on warfarin,??diabetes mellitus, hypertension,??hyper lipidemia, heart failure with reduced ejection fraction??and with recent admission from 02/16-02/18??for blurred visions and found to have??multiple acute/subacute infarction thought to be embolic???discharged on??enoxaparin and warfarin due to subtherapeutic INR??presented this time??with lightheadedness??and nausea while he was at work???was noted to be hypertensive??by EMS, fluid responsive but also noted to have acute kidney injury with creatinine of 2.7??and mildly elevated lactic acid of 2.5 ?? Near syncope Hypotension Acute kidney injury Patient denies any??new change since discharge says his diarrhea is mostly??once a day loose stool which is chronic No fever chills. ??Has mild leukocytosis He says he thought his lightheadedness and nausea was due to anxiety is endorses having a lot of stress at work Blood pressure now stable. ??Lactic acidosis has resolved No evidence of infection??at this time He was started on of??few new medications including Coreg,??amlodipine, and losartan doses were increased during prior hospitalization??which could have caused hypertension as well Plan IV fluid hydration for 1 more??liter???monitor closely??for congestive heart failure Continue to hold??antihypertensive???amlodipine, Coreg, losartan. ??If systolic blood pressure morethan 140 we will start Coreg with holding parameter Continue to hold Lasix Repeat labs in a.m. If creatinine without improvement will send out??urine studies, may need renal consult ?? Recurrent PE Recent??Acute Subacute embolic Infarction Subtherapeutic INR Was seen by??hematology team during recent admission and hypercoagulable work-up has been sent out with plan for outpatient follow-up INR still remains low???was discharged on enoxaparin bridge??and warfarin 6 mg Plan Warfarin increased to 10mg tonight. check INR in am and needs to be redosed Given elevated creatinine???holding enoxaparin and bridging with heparin drip starting from tonight. ??If creatinine improves tomorrow??can be changed back to enoxaparin ?? Diabetes Mellitus Lantus - dose decreased to 10 units daily Hold metformin Insulin sliding scale Hypoglycemia measures ?? Heart failure with reduced ejection fraction???clinically looks euvolemic. ??Hold Lasix??and Coreg due to hypotension. ??Troponin 0.07???no chest pain shortness of breath???this is likely in the setting of acute kidney injury Hyperlipidemia???atorvastatin Anxiety/depression???escitalopram,??as needed Ativan ?? DVT prophylaxis???planned anticoagulation CODE STATUS???full Histories Allergies Allergies ?(Active and Proposed Allergies Only) vancomycin? (Severity: Unknown severity, Onset: Unknown) ? Past Medical History/Problem List ?? Recurrent pulmonary embolisms (2013, 2021 refractory to Eliquis now on warfarin) Insulin dependent T2DM AAA (4 cm) Hypertension Hyperlipidemia?? 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 Past Surgical History Colonoscopy: 01/17/22 Esophagogastroduodenoscopy and biopsy: 01/17/22 Cholecystectomy: 02/14/14 ? Social History ?? Works as [employer] Denied any recent??tobacco or alcohol ?? Family History Father: Cancer of colon ? Medications Home Medications Amlodipine (amLODIPine 10 mg oral tablet)?10?Milligram?1?tablet?By Mouth?Daily Atorvastatin (atorvastatin 40 mg oral tablet)?1?tab(s)?40?Milligram?By Mouth?Daily Carvedilol (carvedilol 25 mg oral tablet)?25?Milligram?1?tablet?By Mouth?2 times a day Durable Medical Equipment (Blood Pressure Monitor)?See Instructions?check blood pressure 3 times a week or anytime when you don't feel well. keep a log book Enoxaparin (enoxaparin 120 mg/0.8 mL injectable solution)?0.8?Milliliter?120?Milligram?Subcutaneous Injection?Every 12 hours?for 14?Days Escitalopram (escitalopram 10 mg oral tablet)?1?tab(s)?10?Milligram?By Mouth?Daily Fluticasone Nasal (fluticasone 50 mcg/inh nasal spray)?1?spray(s)?Nares, Both?Daily?as needed?Sinus Symptoms Furosemide (furosemide 40 mg oral tablet)?40?Milligram?1?tablet?By Mouth?Daily HydrOXYzine (hydrOXYzine hydrochloride 25 mg oral tablet)?1?tab(s)?25?Milligram?By Mouth?Daily at bedtime?as needed?for anxiety Insulin Aspart (Insulin Aspart FlexPen 100 units/mL injectable solution)?INJECT MAX OF 14 UNITS SUBCUTANEOUSLY PER SLIDING SCALE THREE TIMES A DAY Insulin Glargine (insulin glargine 100 units/mL subcutaneous solution)?25?unit(s)?Subcutaneous Injection?Daily Loperamide (Imodium A-D 2 mg oral tablet)?2?Milligram?1?tablet?By Mouth?Every 4 hours?as needed?for loose stool Lorazepam (LORazepam 0.5 mg oral tablet)?1?tab(s)?0.5?Milligram?By Mouth?Daily atbedtime?as needed?as needed for anxiety?(filled 01/25/22 14 tabs still has some) Losartan (losartan 25 mg oral tablet)?50?Milligram?2?tablet?By Mouth?Daily Metformin (metFORMIN 1000 mg oral tablet)?1?tab(s)?1,000?Milligram?By Mouth?Dailybefore breakfast Multivitamin (Daily Vin oral tablet)?1?tab(s)?By Mouth?Daily Topiramate (topiramate 100 mg oral tablet)?1?tab(s)?100?Milligram?By Mouth?2 times a day Warfarin (warfarin 3 mg oral tablet)?2?tab(s)?6?Milligram?By Mouth?Daily ?? Reviewed this with patient Results CBC, CBC w/Diff?? CBC?? Differential?? WBC:??12.5 k/mm3??High (08:15) Abs. Neut:??10.1 k/mm3??High (08:15) RBC:??4.58 m/mm3??Low (08:15) Abs. Lymph: 1.2 k/mm3 (08:15) Hct:??37.8 %??Low (08:15) Abs. Luna: 0.8 k/mm3 (08:15) RDW-SD: 46.1 femtoliters (08:15) Abs. Eo: 0.2 k/mm3 (08:15) Nucleated RBC (Automated): 0 #/100 WBC'S (08:15) Abs. Baso: 0.1 k/mm3 (08:15) Abs. NRBC: 0 k/mm3 (08:15) Neut %:??81 %??High (08:15) ?? Lymph %:??9.4 %??Low (08:15) ?? Luna %: 6.6 % (08:15) ?? Eos %: 1.9 % (08:15) ?? Baso %: 0.4 % (08:15) ?? Imm Gran: 0.7 % (08:15) ?? Abs. Imm Gran: 0.1 k/mm3 (08:15) ? BMP, Mg, and Phos Anion Gap: 12 (08:15) Bicarbonate Level: 25 mmol/L (08:15) BUN:??39 mg/dL??High (08:15) Calcium: 9.7 mg/dL (08:15) Calcium, Ionized pH Corrected: 1.27 mmol/L (08:15) Chloride: 102 mmol/L (08:15) Creatinine-Blood:??2.7 mg/dL??High (08:15) Estimated GFR Creatinine: 28 ML/MIN/1.73 M2 (08:15) Glucose Level:??191 mg/dL??High (08:15) Magnesium: 1.7 mg/dL (08:15) Potassium: 3.7 mmol/L (08:15) Sodium: 139 mmol/L (08:15) ?? Coagulation Profile INR:??1.4??High (08:15) Protime (PT):??13.9 seconds??High (08:15) ?? LFT Albumin: 4.2 Gm/dL (08:15) Alkaline Phosphatase: 96 units/L (08:15) ALT (SGPT): 13 units/L (08:15) AST (SGOT): 9 units/L (08:15) Bilirubin, Total: 0.4 mg/dL (08:15) Protime (PT):??13.9 seconds??High (08:15) ?? Urinalysis?? No qualifying data available. ?? Microbiology ?? COVID-19 (2019 Novel Coronavirus) PCR?? Completed?? Source: Nasal Body Site: Nose Collected Dt/Tm: 02/20/2022 10:59 Last Updated Dt/Tm: 02/20/2022 14:16 ? Blood Gases?? No qualifying data available. ?? EKG study * Event Display: ECG 12-Lead Authored Date: Please click on pdf link to open report * Event Display: ECG 12-Lead Authored Date: Ventricular Rate: 61 BPM Atrial Rate: 61 BPM P-R Interval: 172 ms QRS Duration: 146 ms Q-T Interval: 468 ms QTC Calculation(Bazett): 471 ms P [place]: 40 degrees R [place]: -48 degrees T [place]: 54 degrees Normal sinus rhythm Non-specific intra-ventricular conduction delay Abnormal ECG When compared with ECG of 14-FEB-2022 16:18, No significant change Confirmed by MAYELIN PEREZ ([id number]) on 02/20/2022 4:25:15 PM [place]: MAYELIN PEREZ [facility] Progress note * Obie GONZALEZ, Shahid Harry: PERFORM, SIGN, VERIFY Event Display: Progress Note Hospital Authored Date: [id number] Patient: MONSTER BEAR Age: 51 years Sex: Male : 1970 Associated Diagnoses: None Author: Shahid Ragland MD 02/23/2022 To Whom It May Concern: Mr. Bear was a patient at [facility] from 02/20 - 02/23/22. Please excuse him from work for this time and until 02/27/22. Kind regards, Shahid Ragland MD * Taras Yuen RN: PERFORM, SIGN, VERIFY Event Display: Progress Note Hospital Authored Date: Patient: MONSTER BEAR Age: 51 years Sex: Male : 1970 Associated Diagnoses: None Author: Taras Yuen RN Findings Nursing Data Vital Signs : VITAL SIGNS SECTION 02/22/2022 21:00 EST Temperature 98.2 DegF Temperature Route Oral Pulse Rate 60 bpm Respiratory Rate 18 br/min Systolic Blood Pressure 170 mm Hg H Diastolic Blood Pressure 91 mm Hg H Blood pressure sites Arm, right Pulse Pressure 79 mm Hg Oxygen Saturation 98 % Mode of Delivery (Oxygen) Room air . Evaluation Pt a+ox4. No significant overnight events to report. Bed in lowest locked position, call gauthier w/in reach, care provided, and purposeful rounding complete.. * Shahid Ragland MD: PERFORM Event Display: Progress Note Hospital Authored Date: [id number] Patient: ??MONSTER BEAR ? Age:??51 Years?Sex:??Male?:??1970?? Subjective Cr improving feeling better INR still subtherapeutic Review of Systems ?Constitutional: no fevers/chills ?Eyes: no pain, no vision changes ?ENT: no ear pain, no change in hearing ?Cardiovasc: no chest pain, no palpitations, no PND, no orthopnoea ?Resp: no cough, no sputum, no haemoptysis, no dyspnoea ?GI: no abdo pain, no vomiting, no diarrhoea ?: no dysuria, no urinary frequency, no flank pain Objective Measurements?? Height: 168 cm (02/22/22) Weight: 114 kg (02/21/22) Body Mass Index:??40.39 kg/m2??Critical (02/21/22) ? Vital Signs?? Temperature: 98.5 DegF (02/22/22 16:15:00) Temperature Route: Oral (02/22/22 16:15:00) Pulse Rate: 64 bpm (02/22/22 16:15:00) Respiratory Rate: 18 br/min (02/22/22 16:15:00) Systolic Blood Pressure:??166 mm Hg??High (02/22/22 16:15:00) Diastolic Blood Pressure:??94 mm Hg??High (02/22/22 16:15:00) Blood pressure sites: Arm, right (02/22/22 16:15:00) Mean Arterial Pressure: 118 mm Hg (02/22/22 16:15:00) Pulse Pressure: 72 mm Hg (02/22/22 16:15:00) Oxygen Saturation: 99 % (02/22/22 16:15:00) Mode of Delivery (Oxygen): Room air (02/22/22 16:15:00) Early Warning Score: 0 (02/22/22 16:20:17) ? Intake/Output? 02/20 11:00 02/22 07:00 02/21 07:00 02/20 07:00 02/19 07:00 ?? 02/22 17:07 02/22 17:07 02/22 06:59 02/21 06:59 02/20 06:59 Intake ? 1196.2 ?118 ? 1078.2 ?0 ?0 Output ?800 ?0 ?800 ?0 ?0 Net Total ?396.2 ?118 ?278.2 ?0 ?0 ? Physical Exam Gen: comfortable, well: HEENT:??dry mucous membranes Chest: CTA, no wheeze/crackles CVS: no M/G/R, no JVD Abdo: soft, non-tender Ext: no oedema, no cyanosis or clubbing Neuro: no deficit Psych: WNL Assessment/Plan Assessment:??51-year-old man with history of recurrent pulm embolism now on warfarin, diabetes mellitus, hypertension, hyper lipidemia, heart failure with reduced ejection fraction and with recent admission from 02/16-02/18 for blurred visions and found to have multiple acute/subacute infarction thought to be embolic???discharged on enoxaparin and warfarin due to subtherapeutic INR presented this time with lightheadedness and nausea while he was at work???was noted to be hypertensive by EMS, fluid responsive but also noted to have acute kidney injury with creatinine of 2.7 and mildly elevated lactic acid of 2.5 ?? Near syncope Hypotension Acute kidney injury ??Patient denies any new change since discharge says his diarrhea is mostly once a day loose stool which is chronic ??No fever chills. Has mild leukocytosis ??He says he thought his lightheadedness and nausea was due to anxiety is endorses having a lot of stress at work ??Blood pressure now stable. Lactic acidosis has resolved ??No evidence of infection at this time ??He was started on of few new medications including Coreg, amlodipine, and losartan doses were increased during prior hospitalization which could have caused hypotension as well ??Cr improving, appreciate renal input ??Plan ??prn fluid boluses ??Continue to hold antihypertensive???amlodipine, Coreg, losartan. ??Continue to hold Lasix ?? Recurrent PE Recent Acute Subacute embolic Infarction Subtherapeutic INR Was seen by hematology team during recent admission and hypercoagulable work-up has been sent out with plan for outpatient follow-up INR still remains low???was discharged on enoxaparin bridge and warfarin 6 mg ??Plan ??Warfarin increased to 10mg ??monitor INR ??switch IV heparin to enoxaparin ?? Diabetes Mellitus Lantus - dose decreased to 10 units daily Hold metformin Insulin sliding scale Hypoglycemia measures ?? Heart failure with reduced ejection fraction???clinically looks euvolemic. Hold Lasix and Coreg dueto hypotension. Troponin 0.07???no chest pain shortness of breath???this is likely in the setting of acute kidney injury ??Hyperlipidemia???atorvastatin ??Anxiety/depression???escitalopram, as needed Ativan ?? DVT prophylaxis?enoxaparin and warfarin ??CODE STATUS???full Note * Jacqueline Escobedo RN: PERFORM Event Display: Discharge/Transfer Note Hospital Authored Date: [id number] Nursing Discharge Note Entered On: 02/23/2022 17:16 EST Performed On: 02/23/2022 17:16 EST by Jacqueline Escobedo RN Nursing Discharge Note 2 Discharge Time : 02/23/2022 12:50 EST Discharge Level of Care at Discharge : Home/Shelter/Foster Care Patient Left Unit Via : Wheelchair Patient Accompanied Off Unit with : Responsible adult DC Instructions Provided & Signed by Pt : Yes Patient Understands D/C Instructions : Yes Verbalized Understanding of D/C Plan By : Patient Patient Instructions Discharge Signed : Yes Did Pt have Specialty Bed or Wound Vac : No Gregg GUTIÉRREZ, Jacqueline Fournier - 02/23/2022 17:16 EST * Obie GONZALEZ, Shahid Harry: PERFORM Event Display: Discharge/Transfer Note Hospital Authored Date: Patient: ??MONSTER BEAR ? Age:??51 Years?Sex:??Male?:??1970?? Patient Information Discharge Location: Primary Care Physician: Brandin Valdez MD Admit Date/Time: 02/20/22 11:00 Discharge Disposition Discharge Disposition: Home: No Services Discharge Diagnosis Acute kidney injury (N17.9) Hypotension (I95.9) Severe obesity ?? _ Discharge Medications Atorvastatin (atorvastatin 40 mg oral tablet)?1?tab(s)?40?Milligram?By Mouth?Daily Durable Medical Equipment (Blood Pressure Monitor)?See Instructions?check blood pressure 3 times a week or anytime when you don't feel well. keep a log book Enoxaparin (enoxaparin 120 mg/0.8 mL injectable solution)?0.8?Milliliter?120?Milligram?Subcutaneous Injection?Every 12 hours?for 14?Days Escitalopram (escitalopram 10 mg oral tablet)?1?tab(s)?10?Milligram?By Mouth?Daily Fluticasone Nasal (fluticasone 50 mcg/inh nasal spray)?1?spray(s)?Nares, Both?Daily?as needed?Sinus Symptoms HydrOXYzine (hydrOXYzine hydrochloride 25 mg oral tablet)?1?tab(s)?25?Milligram?By Mouth?Daily at bedtime?as needed?for anxiety Insulin Aspart (Insulin Aspart FlexPen 100 units/mL injectable solution)?INJECT MAX OF 14 UNITS SUBCUTANEOUSLY PER SLIDING SCALE THREE TIMES A DAY Insulin Glargine (Insulin Glargine Inj)?0.1?Milliliter?10?unit(s)?Subcutaneous Injection?Daily Loperamide (Imodium A-D 2 mg oral tablet)?2?Milligram?1?tablet?By Mouth?Every 4 hours?as needed?for loose stool Lorazepam (LORazepam 0.5 mg oral tablet)?1?tab(s)?0.5?Milligram?By Mouth?Daily [...] recommended by anticoagulation clinic ? Medications Started none Medications Discontinued carvedilol, amlodipine, furosemide Doses Changed warfarin PCP Follow-Up/Heads-Up please ensure that patient follows up with anti-coagulation clinic on 02/26/22 and has warfarin dose adjusted accordingly please ensure that patient follows up with nephrology BP meds will likely need to be further adjusted Future Appointments Saturday 1:30 PM EST ?? With: Miley Alanis Where: Rehab Adult Aud Saturday 9:30 AM EST ?? With: Lisa GONZALEZ, Lexa Where: [facility] [address] [facility] 3rd Floor, [address] [place] [address]- Objective Assessment and Plan Assessment:??51-year-old man with history of recurrent pulm embolism now on warfarin, diabetes mellitus, hypertension, hyper lipidemia, heart failure with reduced ejection fraction and with recent admission from 02/16-02/18 for blurred visions and found to have multiple acute/subacute infarction thought to be embolic???discharged on enoxaparin and warfarin due to subtherapeutic INR presented this time with lightheadedness and nausea while he was at work???was noted to be hypertensive by EMS, fluid responsive but also noted to have acute kidney injury with creatinine of 2.7 and mildly elevated lactic acid of 2.5 ?? Near syncope Hypotension Acute kidney injury ??Patient denies any new change since discharge says his diarrhea is mostly once a day loose stool which is chronic ??No fever chills. Has mild leukocytosis ??He says he thought his lightheadedness and nausea was due to anxiety is endorses having a lot of stress at work ??Blood pressure now stable. Lactic acidosis has resolved ??No evidence of infection at this time ??He was started on of few new medications including Coreg, amlodipine, and losartan doses were increased during prior hospitalization which could have caused hypotension as well ??Cr improving, appreciate renal input ??Cr has now improved to 1.2 ??I discussed plan with nephrology team on day of discharge ??We will restart losartan but continue to hold carvedilol (bradycardia) and amlodipine ??will also hold furosemide at time of discharge ??patient has no evidence of decompensated CHF and had evidence of dehydration on presentation ??Renal team will kindly arrange close outpatient follow up with plans to uptitrate BP meds as necessary ?? Recurrent PE Recent Acute Subacute embolic Infarction Subtherapeutic INR Was seen by hematology team during recent admission and hypercoagulable work-up has been sent out with plan for outpatient follow-up INR still remains low???was discharged on enoxaparin bridge and warfarin 6 mg INR remains low in hospital will increase warfarin to 9mg daily at present patient will continue to take enoxaparin which he states that he has at home INR to be rechecked on Monday 02/26 at anti-coagulation clinic. Patient states that he will attend on that day ?? Diabetes Mellitus Lantus - dose decreased to 10 units daily restart??metformin Insulin sliding scale ?Heart failure (normal EF on last echo)???clinically looks euvolemic. Hold Lasix and Coreg due to hypotension as above ??Hyperlipidemia???atorvastatin ??Anxiety/depression???escitalopram, as needed Ativan ?CODE STATUS???full ? Vital Signs?? Temperature: 98.1 DegF (02/23/22 05:51:00) Temperature Route: Oral (02/23/22 05:51:00) Pulse Rate:??54 bpm??Low (02/23/22 05:51:00) Respiratory Rate: 20 br/min (02/23/22 05:51:00) Systolic Blood Pressure:??164 mm Hg??High (02/23/22 09:08:00) Diastolic Blood Pressure:??89 mm Hg??High (02/23/22 09:08:00) Blood pressure sites: Arm, left (02/23/22 05:51:00) Mean Arterial Pressure: 113 mm Hg (02/23/22 05:51:00) Pulse Pressure: 84 mm Hg (02/23/22 05:51:00) Oxygen Saturation: 99 % (02/23/22 05:51:00) Mode of Delivery (Oxygen): Room air (02/23/22 05:51:00) Early Warning Score: 0 (02/23/22 09:09:29) ? . Physical Exam Gen: comfortable, well: HEENT: normocephalic, atraumatic, moist mucous membranes Chest: CTA, no wheeze/crackles CVS: no M/G/R, no JVD Abdo: soft, non-tender Ext: no oedema, no cyanosis or clubbing Neuro: no deficit Psych: WNL Pending Results Blood Culture ordered on 02/20/2022 Blood Culture #2 ordered on 02/20/2022 INR ordered on 02/22/2022 PTT ordered on 02/21/2022 PTT ordered on 02/22/2022 PTT ordered on 02/22/2022 Urea Nitrogen Urine ordered on 02/22/2022 Patient Education Titles Warfarin Oral Tablet?? Low-Salt Diet?? Diet: Diabetes?? Follow-Up Appointments Added Follow Up ?Time Frame ?Comments Orlando Thomas?1 week Brandin Valdez?1 week Home Health Face to Face ^[facility] Results Discharge Labs BLOOD COUNT & DIFF WBC 9.1 k/mm3 ()?? 02/23/2022 02:16 RBC 4.16 m/mm3 (Low)?? 02/23/2022 02:16 Hgb 10.9 Gm/dL (Low)?? 02/23/2022 02:16 Hct 34.0 % (Low)?? 02/23/2022 02:16 MCV 81.7 femtoliters ()?? 02/23/2022 02:16 MCH 26.2 pg (Low)?? 02/23/2022 02:16 MCHC 32.1 g/dL (Low)?? 02/23/2022 02:16 Platelet Count 188 k/mm3 ()?? 02/23/2022 02:16 RDW-SD 45.2 femtoliters ()?? 02/23/2022 02:16 MPV 12.4 femtoliters ()?? 02/23/2022 02:16 Nucleated RBC (Automated) 0.0 #/100 WBC'S ()?? 02/23/2022 02:16 Abs. NRBC 0.0 k/mm3 ()?? 02/23/2022 02:16 Abs. Neut 10.1 k/mm3 (High)?? 02/20/2022 08:15 Abs. Lymph 1.2 k/mm3 ()?? 02/20/2022 08:15 Abs. Luna 0.8 k/mm3 ()?? 02/20/2022 08:15 Abs. Eo 0.2 k/mm3 ()?? 02/20/2022 08:15 Abs. Baso 0.1 k/mm3 ()?? 02/20/2022 08:15 Neut % 81.0 % (High)?? 02/20/2022 08:15 Lymph % 9.4 % (Low)?? 02/20/2022 08:15 Luna % 6.6 % ()?? 02/20/2022 08:15 Eos % 1.9 % ()?? 02/20/2022 08:15 Baso % 0.4 % ()?? 02/20/2022 08:15 Imm Gran 0.7 % ()?? 02/20/2022 08:15 Abs. Imm Gran 0.1 k/mm3 ()?? 02/20/2022 08:15 ?? CARDIAC Troponin T Quant 0.07 ng/mL ()?? 02/20/2022 08:15 ? CHEM GENERAL Sodium 141 mmol/L ()?? 02/23/2022 02:16 Potassium 4.4 mmol/L ()?? 02/23/2022 02:16 Chloride 108 mmol/L (High)?? 02/23/2022 02:16 Bicarbonate Level 23 mmol/L ()?? 02/23/2022 02:16 Anion Gap 10 ()?? 02/23/2022 02:16 Glucose Level 191 mg/dL (High)?? 02/20/2022 08:15 Glucose, POC 110 mg/dL (High)?? 02/23/2022 08:23 BUN 24 mg/dL (High)?? 02/23/2022 02:16 Creatinine-Blood 1.2 mg/dL ()?? 02/23/2022 02:16 Estimated GFR Creatinine 75 ML/MIN/1.73 M2 ()?? 02/23/2022 02:16 Calcium 9.7 mg/dL ()?? 02/20/2022 08:15 Calcium, Ionized pH Corrected 1.27 mmol/L ()?? 02/20/2022 08:15 Phosphorus 3.0 mg/dL ()?? 02/22/2022 01:28 Magnesium 1.6 mg/dL ()?? 02/22/2022 01:28 Protein, Total 7.3 Gm/dL ()?? 02/20/2022 08:15 Albumin 4.2 Gm/dL ()?? 02/20/2022 08:15 AG Ratio 1.4 ()?? 02/20/2022 08:15 Alkaline Phosphatase 96 units/L ()?? 02/20/2022 08:15 AST (SGOT) 9 units/L ()?? 02/20/2022 08:15 ALT (SGPT) 13 units/L ()?? 02/20/2022 08:15 Bilirubin, Total 0.4 mg/dL ()?? 02/20/2022 08:15 Lactate 1.2 mmol/L ()?? 02/20/2022 11:20 ?? COAG INR 1.3 (High)?? 02/23/2022 02:16 Protime (PT) 13.4 seconds (High)?? 02/23/2022 02:16 APTT 58.2 seconds (High)?? 02/22/2022 06:45 ? ENDOCRINE/TUMOR MARKER TSH 2.01 uIU/mL ()?? 02/20/2022 08:15 ? MISC. CHEMISTRY Hold Gel Top SPECIMEN DISCARDED AFTER 1 WEEK ()?? 02/21/2022 08:51 ? UA/URINALYSIS Appear/Color, Urine LIGHT YELLOW ()?? 02/22/2022 04:45 Specific [place], Urine 1.014 ()?? 02/22/2022 04:45 pH, Urine 6.5 ()?? 02/22/2022 04:45 Albumin, Urine TRACE (Abnormal)?? 02/22/2022 04:45 Glucose, Urine 4+ (Abnormal)?? 02/22/2022 04:45 Ketones, Urine NEGATIVE ()?? 02/22/2022 04:45 Bilirubin, Urine NEGATIVE ()?? 02/22/2022 04:45 Hemoglobin, Urine NEGATIVE ()?? 02/22/2022 04:45 Nitrite, Urine NEGATIVE ()?? 02/22/2022 04:45 Leukocyte, Urine NEGATIVE ()?? 02/22/2022 04:45 Urobilinogen NORMAL mg/dL ()?? 02/22/2022 04:45 WBC's, Urine 1 /HPF ()?? 02/22/2022 04:45 RBC's, Urine 1 /HPF ()?? 02/22/2022 04:45 Mucus SLIGHT /LPF ()?? 02/22/2022 04:45 ?? URINE OTHER Creatinine, Urine Random 96.0 mg/dL ()?? 02/22/2022 04:45 Sodium, Urine Random 105 mmol/L ()?? 02/22/2022 04:45 Urea Nitrogen, Urine Random 731.2 mg/dL ()?? 02/22/2022 04:45 Protein, Total Urine Random 17 mg/dL ()?? 02/22/2022 04:45 TP/Cr Ratio 0.18 ()?? 02/22/2022 04:45 Creatinine, Urine 96.0 mg/dL ()?? 02/22/2022 04:45 Malb/Creat Ratio 43.5 mg/Gm (High)?? 02/22/2022 04:45 Urine Creat For Micro Alb 96.0 mg/dL ()?? 02/22/2022 04:45 Micro-Albumin 41.8 mg/L (High)?? 02/22/2022 04:45 ? VIROLOGY COVID-19 PCR Specimen Source NASAL ()?? 02/22/2022 05:00 COVID-19 PCR Result NEGATIVE ()?? 02/22/2022 05:00 ? Imaging(s) ?CT Head/Brain W/O Contrast ?? 02/20/2022 12:10??by Christina Vital MD ? Impression: ?? There is no acute intracranial abnormality. WSN: [id number] ?Chest Portable ?? 02/20/2022 08:40??by Christina Vital MD ? Findings: ?? A frontal view of the chest is compared to a prior study dated 01/28/2022. ?? There is stable enlargement of the cardiac silhouette. Prominence of the pulmonary vasculature is noted without overt edema. ?? Osteophyte formation throughout the thoracic spine is identified. ?? IMPRESSION: ?? Minimal pulmonary vascular congestion. WSN: [id number] ? Consults(s) ?Consult ?? 02/21/2022 13:13??by Orlando Thomas DO ?Nephrology ? 33_ minutes spent on discharge * Gregg GUTIÉRREZ, Jacqueline Fournier: PERFORM Event Display: Patient Education/Instruction Authored Date: [id number] Inpatient Adult Discharge Instructions [place] [id number] Name: MONSTER BEAR : 1970 Visit: 02/20/2022 11:00:00 Current Date: 02/23/2022 09:54 Account: [id number] Inpatient Adult Discharge Instructions We would like [...] and their families. Surveys are administered by [employer] ?? If further treatment with your primary care physician or another doctor is recommended, it is important for you to keep the appointment. Call your primary care physician or return to the Emergency Department immediately if your condition worsens, fails to improve, or new symptoms develop. If you need to find a doctor, you can call [facility] [employer] for a referral at [phone] or toll free at [phone]) or log in to [email or web address].. ?? You can view and manage your care through the patient portal or by using a health care anupam of your choosing. [employer] is a website that allows you to securely view your medical information including your hospital discharge summary, office visit summaries, medications and follow-up visits. You can also request appointments, renew medications, and request access to your medical information using a health care anupam of your choosing, or just ask a question. You can enroll at [email or web address] or register during your next office visit. You have been discharged from [facility], Patient Care Unit: S3. If you have any questions regarding these instructions after you leave, please call us and we will be happy to assist you. [facility] Your Care Team Attending Physician Obie GONZALEZ, Shahid Harry Consulting Providers Orlando Thomas DO Discharging Providers Obie GONZALEZ, Shahid Harry Reason for Admission From work. pt c/o lightheadedness. had BM, vomited. found to be hypotensive. also c/o blurred vision and photophobia. UTO IV access. Your Diagnosis Acute kidney injury Hypotension Tests Performed Below is a partial list of the tests performed during your hospitalization. You may have had other tests and procedures not included in this list. Please discuss all test results with your provider. Blood Urea Nitrogen BUN CBC CBC w/ Differential Complete Urinalysis Comprehensive Metabolic Panel COVID-19 (2019 Novel Coronavirus) PCR Creatinine Electrolytes GLUCOSE POC HOLD GEL TUBE INR Ionized Calcium Lactate Level Magnesium Level Mg Level Microalbumin Urine Phosphorus Level Protein/Creatinine Ratio Urine PT (INR) Troponin T Quant TSH with T4 Reflex (Adults Only) UREA NITROGEN, URINE MG/DL Urine Creatinine Urine Sodium Urine Urea Nitrogen?-- Results Pending -- CT Head/Brain W/O Contrast XR Chest Portable ? You will be contacted within 72 hours with your results. Primary Care Provider Courtney GONZALEZ, Brandin Stahl Advance Directive Health Care Proxy on File Yes - Health Care Proxy No qualifying data available. Discharge Vitals Temperature: 97.3 DegF Height: 168 cm Pulse Rate: 62 bpm Weight: 114 kg Respiratory Rate: 18 br/min Body Mass Index:??40.39 kg/m2??Critical Systolic Blood Pressure:??153 mm Hg??High Body surface area: 2.31 Diastolic Blood Pressure:??97 mm Hg??High ?? Oxygen Saturation: 97 % ?? Studies Pending All tests and labs ordered during this hospital stay have been completed unless listed below. Please discuss all pending results with your provider listed above in these instructions. ?? Blood Culture Blood Culture #2 INR PTT Urea Nitrogen Urine (Urine Urea Nitrogen) What to do next Instructions From Your Doctor Discharge Orders Scheduled Follow-Up Appointments Saturday 1:30 PM EST ?? With: Miley Alanis Where: Rehab Adult Aud Saturday 9:30 AM EST ?? With: Lisa GONZALEZ, Lexa Where: [facility] [address] [facility] 3rd Floor, [address] [place] [id number]- You Need to Schedule the Following Appointments Follow Up with??Orlando Thomas When??Within 1 week Where: [address] [facility] [address] [facility] [place] [address]- Business (1) Follow Up with??Brandin Valdez When??Within 1 week Where: [address] [place] [address]- Business (2) Discharge Medications RONI MONSTER :1970 Visit Date:02/20/2022 Medications: Please continue your medications until treatment is completed or stopped by your provider. Medications not listed below should be discontinued. Discuss any questions related to medications with your provider. What How Much When Instructions Next Dose Changed Insulin Glargine (Insulin Glargine Inj) 10 unit(s) Subcutaneous Injection Daily next dose due 02/24 at 8am Changed Warfarin (warfarin 3 mg oral tablet) 3 tab(s) Oral Daily Duration: 30 Days dose to be adjusted as recommended by anticoagulation clinic ?? next dose due 02/23 at 6pm Unchanged Atorvastatin (atorvastatin 40 mg oral tablet) 1 tab(s) Oral Daily next dose due 02/24 at 9am Unchanged Durable Medical Equipment (Blood Pressure Monitor) See instructions check blood pressure 3 times a week or anytime when you don't feel well. keep a log book ?? Unchanged Enoxaparin (enoxaparin 120 mg/ 0.8 mL injectable solution) 0.8 Milliliter Subcutaneous Injection Every 12 hours Duration: 14 Days next dose due 02/23 at 9pm Unchanged Escitalopram (escitalopram 10 mg oral tablet) 1 tab(s) Oral Daily next dose due 02/24 at 9am Unchanged Fluticasone Nasal (fluticasone 50 mcg/ inh nasal spray) 1 spray(s) Nares, Both Daily as needed for Sinus Symptoms take as directed Unchanged HydrOXYzine (hydrOXYzine hydrochloride 25 mg oral tablet) 1 tab(s) Oral Daily at Bedtime as needed for for anxiety take as directed Unchanged Insulin Aspart (Insulin Aspart FlexPen 100 units/ mL injectable solution) INJECT MAX OF 14 UNITS SUBCUTANEOUSLY PER SLIDING SCALE THREE TIMES A DAY ?? take as directed Unchanged Loperamide (Imodium A-D 2 mg oral tablet) 1 tab(s) Oral Every 4 hours as needed for for loose stool take as directed Unchanged Lorazepam (LORazepam 0.5 mg oral tablet) 1 tab(s) Oral Daily at Bedtime as needed for as needed for anxiety (filled 14 tabs still has some) ?? take as directed Unchanged Losartan (losartan 25 mg oral tablet) 2 tab(s) Oral Daily next dose due 02/24 at 9am Unchanged Metformin (metFORMIN 1000 mg oral tablet) 1 tab(s) Oral Daily before breakfast next dose due 02/24 at 9am Unchanged Multivitamin (Daily Vin oral tablet) 1 tab(s) Oral Daily next dose due 02/24 at 9am Unchanged Topiramate (topiramate 100 mg oral tablet) 1 tab(s) Oral Twice a day next dose due 02/23 at 9pm ?? What How Much When Comments Stop Taking Amlodipine (amLODIPine 10 mg oral tablet) 1 tab(s) Oral Daily Stop Taking Carvedilol (carvedilol 25 mg oral tablet) 1 tab(s) Oral Twice a day Stop Taking Furosemide (furosemide 40 mg oral tablet) 1 tab(s) Oral Daily Test Results Below is a partial list of the most recent Laboratory test results done prior to this discharge. You may have had other tests and procedures not included in this list. Please discuss all test resultswith your provider. Blood Urea Nitrogen (02/23/2022) ???BUN - 24 mg/dL BUN (02/21/2022) ???BUN - 35 mg/dL CBC (02/23/2022) ???WBC - 9.1 k/mm3???RBC - 4.16 m/mm3???Hgb - 10.9 Gm/dL???Hct - 34.0 %???MCV - 81.7 femtoliters???MCH - 26.2 pg???MCHC - 32.1 g/dL???Platelet Count - 188 k/mm3???RDW-SD - 45.2 femtoliters???MPV - 12.4 femtoliters???Nucleated RBC (Automated) - 0.0 #/100 WBC'S???Abs. NRBC - 0.0 k/mm3 CBC w/ Differential (02/20/2022) ???WBC - 12.5 k/mm3???RBC - 4.58 m/mm3???Hgb - 12.2 Gm/dL???Hct - 37.8 %???MCV - 82.5 femtoliters???MCH - 26.6 pg???MCHC - 32.3 g/dL???Platelet Count - 227 k/mm3???RDW-SD - 46.1 femtoliters???MPV - 11.9 femtoliters???Nucleated RBC (Automated) - 0.0 #/100 WBC'S???Abs. NRBC - 0.0 k/mm3???Abs. Neut - 10.1 k/mm3???Abs. Lymph - 1.2 k/mm3???Abs. Luna - 0.8 k/mm3???Abs. Eo - 0.2 k/mm3???Abs. Baso - 0.1 k/mm3???Neut % - 81.0 %???Lymph % - 9.4 %???Luna % - 6.6 %???Eos % - 1.9 %???Baso % - 0.4 %???Imm Gran - 0.7 %???Abs. Imm Gran - 0.1 k/mm3 Complete Urinalysis (02/22/2022) ???Appear/Color, Urine - LIGHT YELLOW???Specific [place], Urine - 1.014???pH, Urine - 6.5???Albumin, Urine - TRACE???Glucose, Urine - 4+???Ketones, Urine - NEGATIVE???Bilirubin, Urine - NEGATIVE???Hemoglobin, Urine - NEGATIVE???Nitrite, Urine - NEGATIVE???Leukocyte, Urine - NEGATIVE???Urobilinogen - NORMAL???WBC's, Urine - 1 /HPF???RBC's, Urine - 1 /HPF???Mucus - SLIGHT Comprehensive Metabolic Panel (02/20/2022) ???Sodium - 139 mmol/L???Potassium - 3.7 mmol/L???Chloride - 102 mmol/L???Bicarbonate Level - 25 mmol/L???Anion Gap - 12???Glucose Level - 191 mg/dL???BUN - 39 mg/dL???Creatinine-Blood - 2.7 mg/dL???Estimated GFR Creatinine - 28 ML/MIN/1.73 M2???Calcium - 9.7 mg/dL???Protein, Total - 7.3 Gm/dL???Albumin - 4.2 Gm/dL???AG Ratio - 1.4???Alkaline Phosphatase - 96 units/L???AST (SGOT) - 9 units/L???ALT (SGPT) - 13 units/L???Bilirubin, Total - 0.4 mg/dL COVID-19 (2019 Novel Coronavirus) PCR (02/22/2022) ???COVID-19 PCR Specimen Source - NASAL???COVID-19 PCR Result - NEGATIVE Creatinine (02/23/2022) ???Creatinine-Blood - 1.2 mg/dL???Estimated GFR Creatinine - 75 ML/MIN/1.73 M2 Electrolytes (02/23/2022) ???Sodium - 141 mmol/L???Potassium - 4.4 mmol/L???Chloride - 108 mmol/L???Bicarbonate Level - 23 mmol/L???Anion Gap - 10 GLUCOSE POC (02/23/2022) ???Glucose, POC - 110 mg/dL HOLD GEL TUBE (02/21/2022) ???Hold Gel Top - SPECIMEN DISCARDED AFTER 1 WEEK INR (02/23/2022) ???INR - 1.3???Protime (PT) - 13.4 seconds Ionized Calcium (02/20/2022) ???Calcium, Ionized pH Corrected - 1.27 mmol/L Lactate Level (02/20/2022) ???Lactate - 1.2 mmol/L Magnesium Level (02/22/2022) ???Magnesium - 1.6 mg/dL Mg Level (02/20/2022) ???Magnesium - 1.7 mg/dL Microalbumin Urine (02/22/2022) ???Malb/Creat Ratio - 43.5 mg/Gm???Urine Creat For Micro Alb - 96.0 mg/dL???Micro-Albumin - 41.8 mg/L Phosphorus Level (02/22/2022) ???Phosphorus - 3.0 mg/dL Protein/Creatinine Ratio Urine (02/22/2022) ???Protein, Total Urine Random - 17 mg/dL???TP/Cr Ratio - 0.18???Creatinine, Urine - 96.0 mg/dL PT (INR) (02/20/2022) ???INR - 1.4???Protime (PT) - 13.9 seconds Troponin T Quant (02/20/2022) ???Troponin T Quant - 0.07 ng/mL TSH with T4 Reflex (Adults Only) (02/20/2022) ???TSH - 2.01 uIU/mL UREA NITROGEN, URINE MG/DL (02/22/2022) ???Urea Nitrogen, Urine Random - 731.2 mg/dL Urine Creatinine (02/22/2022) ???Creatinine, Urine Random - 96.0 mg/dL Urine Sodium (02/22/2022) ???Sodium, Urine Random - 105 mmol/L Allergies (NKA means No Known Allergies) vancomycin Problems Active Problems??(2) Severe obesity?? Tubular adenoma of colon?? Education Materials Below is the list of Educational Leaflet Providered with your Discharge Instructions. Warfarin Oral Tablet?? Low-Salt Diet?? Diet: Diabetes?? Valuables and Belongings I fully understand and agree that [facility] accepts no responsibility for all my personal [...] to send valuables and belongings home. ?? Date for Pt to Sign Valuables/Belongings: 02/20/22 12:24:00 ?? Other Discharge Information ? Case Management Discharge Plan?? Discharge Plan?? Discharge Rx Program: Discharge Prescription Program ?? Pulmonary Rehab Status?? Pulmonary Rehab Discharge [...] are strongly encouraged to quit. Please call [email or web address] Link at [phone] or [phone] ([phone]) or log in to [email or web address] for referrals to smoking cessation programs. ?? The National Suicide Prevention Hotline is available 05/11 if you or someone you know needs to find a reason to keep living. By calling 5-580-362-CareSimply (8768) you'll be connected to a skilled, trained counselor at a crisis center in your area. INPATIENT DISCHARGE INSTRUCTIONS SIGNATURE STEVIE MONSTER BEAR Location:[facility] Registration Date and Time:02/20/2022 11:00 EST Primary Care Physician: Brandin Valdez MD, I MONSTER BEAR, have received the above patient education materials/instructions and have verbalized understanding. If ambulance or transport services are being used I further acknowledge being given a choice of service. ?? If you need to contact me, please call me at this number: . 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 [id number] Warfarin Oral Tablet Brands: Coumadin, Jantoven Uses This medicine is used for the following purposes: ??? prevent blood clots ??? blood clot ?? Instructions This medicine may be taken with or without food. It is very important that you take the medicine at about the same time every day. It will work bestif you do this. Keep the medicine at room temperature. Avoid heat and direct light. It is important that you keep taking each dose of this medicine on time even if you are feeling well. If you forget to take a dose on time, take it as soon as you remember. If you don't remember until the next day, please call your doctor for instructions. Never take a double dose or skip a dose unless your provider tells you to do so. Tell your doctor and pharmacist about all your medicines. Include prescription and mqdj-fip-wvfoteyushwkhvus, vitamins, and herbal medicines. ?? Cautions Tell your doctor and pharmacist if you ever had an allergic reaction to a medicine. Do not use the medication any more than instructed. Contact your doctor if you notice a change in the amount or darkening of your urine. Tell the doctor or pharmacist if you are , planning to be , or . Women who are or in their childbearing years should not touch or handle this medicine. This medicine can be absorbed through the woman's skin and harm the unborn baby. Call your doctor right away if you notice any unusual bleeding or bruising. Do not share this medicine with anyone who has not been prescribed this medicine. ?? Side Effects The following is a list of some common side effects from this medicine. Please speak with your doctor about what you should do if you experience these or other side effects. ??? increased risk of bruising and bleeding ??? liver problems ??? nausea ??? red, burning, or itchy skin ??? stomach upset or abdominal pain ??? bloody or dark, tarry stools Call your doctor or get medical help right away if you notice any of these more serious side effects: ??? loss of balance ??? bleeding or bruising ??? chest pain ??? coughing up blood or vomit that looks like coffee grounds ??? dizziness ??? fainting ??? severe or persistent headache ??? sudden leg pain, swelling, warmth or redness ??? signs of liver damage (such as yellowing of eye or skin, dark urine, or unusual tiredness) ??? pale or blue skin, lips or fingernails ??? light colored stool ??? symptoms of stroke (such as one-sided weakness, slurred speech, confusion) ??? blood in urine A few people may have an allergic reaction to this medicine. Symptoms can include difficulty breathing, skin rash, itching, swelling, or severe dizziness. If you notice any of these symptoms, seek medical help quickly. ?? Extra Please speak with your doctor, nurse, or pharmacist if you have any questions about this medicine. ?? [email or web address] IMPORTANT NOTE: This document tells you briefly how to take your medicine, but it does not tell youall there is to know about it. Your doctor or pharmacist may give you other documents about your medicine. Please talk to them if you have any questions. Always follow their advice. There is a more complete description of this medicine available in Greek. Scan this code on your smartphone or tablet or use the web address below. You can also ask your pharmacist for a printout. If you have any questions, please ask your pharmacist. The display and use of this drug information is subject to Terms of Use. Copyright(c) 2021 [employer]. ?? [employer]. All rights reserved. This information is not intended as a substitute for professional medical care. Always follow your healthcare professional's instructions. ?? * Obie GONZALEZ, Shahid Harry: PERFORM Event Display: Patient Education Leaflets Authored Date: Low-Salt Diet ?? [id number] Low-Salt Diet This diet removes foods that are high in salt. It also limits the amount of salt you use when cooking. It is most often used for people with high blood pressure, fluid retention (edema), and kidney, liver, or heart disease. Table salt has the mineral sodium. Your body needs sodium to work normally. But too much sodium canmake your health problems worse. Your healthcare provider advises a low-salt (low-sodium) diet for you. Your total daily allowed amount of salt is??1,500 to 2,300??milligrams (mg). This is less than 1 teaspoon of table salt. This means you can have only about??500 to 700??mg of sodium at each meal.??People with certain health problems should limit salt intake to the lower end of the advised range. ?? When you cook, don???t add much salt. If you can cook without using salt, even better. Don???t add salt to your food at the table. Use herbs and spices to flavor your food. When shopping, read food labels. Salt is often called sodium on the label. Choose foods that are salt-free, low salt, or very low salt. Note that foods with reduced salt may not??lower your salt intake enough. Beans, legumes, and nuts OK: Dry beans, split peas, lentils, canned beans with no added salt, and unsalted nuts Avoid: Regular (salt added) canned beans and salted nuts ?? Breads and grains OK: Low-sodium breads, rolls, cereals, cakes, low-salt crackers, matzo crackers, oats, rice, pasta with no salt added, and unsalted popcorn Avoid: Salted crackers, pretzels, tortilla chips, popcorn, and other salty snacks, as well as Bangladeshi toast, pancakes, muffins, regular bread, instant oatmeal packets, and prepackaged seasoned rice orpasta blends ?? Dairy OK: Milk, chocolate milk, hot chocolate mix, low-salt cheeses, and yogurt Avoid: Processed cheese and cheese spreads, Roquefort, Camembert, cottage cheese, buttermilk, and instant breakfast drinks ?? Desserts OK: Ice cream, frozen yogurt, juice bars, gelatin, sugar, honey, jelly, and hard candy (though be mindful of added sugars in these foods) Avoid: Most pies, cakes, and cookies made with salt, and instant pudding ?? Drinks OK: Tea, coffee, fizzy (carbonated) drinks, and juices Avoid: Flavored coffees, electrolyte replacement drinks, and sports drinks ?? Meats OK: All fresh meat, fish, poultry, low-salt tuna, eggs, and egg substitute Avoid: Smoked, pickled, brine-cured, or salted meats and fish, and processed poultry injected with salt or marinade (this??includes tracy, chipped beef, jerky, corned beef, hot dogs, deli meats, ham,kosher meats, salt pork, sausage, canned tuna, salted codfish, smoked??salmon, wood, sardines, and anchovies) ?? Seasonings OK: Most seasonings are okay and good substitutes for salt include fresh herb blends, hot sauce, lemon, garlic, justin, vinegar, dry mustard, parsley, cilantro, horseradish, tomato paste, low-salt mayonnaise, unsalted butter and margarine, cream cheese, vegetable and olive oil, cream, low-salt saladdressing, and gravy Avoid: Regular ketchup, relishes, pickles, soy sauce, teriyaki sauce, Worcestershire sauce, BBQ sauce, tartar sauce, meat tenderizer, chili sauce, regular gravy, regular salad dressing, and salted butter ?? Soups OK: Low-salt soups and broths made with allowed foods Avoid: Bouillon cubes, soups with smoked or salted meats, and regular soup and broth ?? Vegetables OK: Most vegetables are okay, including canned vegetables with no salt added, plain frozen vegetables, and low-salt tomato and vegetable juices Avoid: Sauerkraut and other brined vegetables, pickles and pickled vegetables, tomato juice, olives, canned vegetables with salt, frozen vegetables with sauces, and salted potato chips ?? Last Reviewed Date: 2021 ?? 1063-2082 [employer]. All rights reserved. This information is not intended as a substitute for professional medical care. Always follow your healthcare professional's instructions. ?? * Obie GONZALEZ, Shahid Harry: PERFORM Event Display: Patient Education Leaflets Authored Date: Diet: Diabetes ?? [id number] Diet: Diabetes Food is an important tool that you can use to control diabetes and stay healthy. Eating well-balanced meals in the correct amounts will help you control your blood glucose levels and prevent low blood sugar reactions. It will also help you reduce the health risks of diabetes. There is no one specific diet that is right for everyone with diabetes and you can eat a variety of foods. But there are general guidelines to follow. A registered dietitian (EDITA) will create a tailored diet approach that???s just right for you. They will also help you plan healthy meals and snacks. If you have any questions, call your dietitian for advice. Guidelines for success Talk with your healthcare provider before starting a diabetes diet or weight loss program. If you haven't talked with a dietitian yet, ask your provider for a referral. The following guidelines can help you succeed: ??? Select foods from the 6 food groups below. Your dietitian will help you find food choices within each group. He or she will also show you serving sizes and how many servings you can have at each meal. o Grains, beans, and starchy vegetables o Vegetables o Fruit o Milk or yogurt o Meat, poultry, fish, or tofu o Healthy fats ??? Check your blood sugar levels as directed by your provider. Take any medicine as prescribed by your provider. ??? Learn to read food labels and pick the right portion sizes. ??? Limit carbohydrates at each meal to help manage your diabetes. The carbohydrates you eat become glucose in the blood. This does not mean you can't eat carbohydrates. Talk with your healthcare provider about how many grams of carbohydrates are recommended for you at each meal. Eat 3 meals a day, at consistent times. Don't skip meals. If you are hungry between meals, eat a small, low-carbohydrate snack. ??? Talk with your healthcare provider if you drink alcohol. Alcohol can have unpredictable effects on blood glucose. It's also high in empty calories and can raise a type of blood fat called triglycerides. Drink water or calorie-free diet drinks instead. ??? Eat less fat to help lower your risk of heart disease. Use nonfat or low-fat dairy products and lean meats.Avoid fried foods. Use cooking oils that are unsaturated, such as olive, canola, or peanut oil. ???Don't eat foods with added salt. Salt can contribute to high blood pressure, which can cause heart disease. People with diabetes already have a risk for high blood pressure and heart disease. ??? Stay at a healthy weight. If you need to lose weight, cut down on your portion sizes. But never skip meals. Exercise is an important part of any weight management program. Talk with your provider about an exercise program that???s right for you. ??? For more information about the best diet plan for you, talk with an RD. To find an RD in your area, contact: o Academy of Nutrition and Dietetics at www.eatright.org o [place] [employer] at www.diabetes.org or 739-328-1282 o Association of Diabetes Care and Education Specialists at www.diabeteseducator.org/ ?? Last Reviewed Date: 2021 ?? 1921-1464 [employer]. All rights reserved. This information is not intended as a substitute for professional medical care. Always follow your healthcare professional's instructions. ?? CT Head WO contrast * NIKHIL Roberts S: TRANSCRIBE Christina Vital MD: VERIFY Event Display: Result: Authored Date: [id number] Examination: Noncontrast head CT performed on 02/20/2022. History: Trauma. Technique and findings: Contiguous 5 mm axial images were obtained from the skull base to the vertex without intravenous contrast. A dose modulated weight-based protocol was used. Comparison is made to a prior study dated 02/14/2022. A mucous retention cyst or polyp within the left maxillary sinus is noted. The ventricular system and subarachnoid spaces are within normal limits. A moderate degree of periventricular and deep subcortical white matter low- attenuation is noted, consistent with chronic smallvessel ischemic change. There is no intracranial hemorrhage, mass effect, or midline shift. No intra- or extra-axial fluid collections are identified. The osseous structures are unremarkable. Impression: There is no acute intracranial abnormality. WSN: [id number] Ordering Physician: Llaito Kendall Dictated By: Christina Vital MD Dictated Date/Time: 02/20/22 12:33 p Reviewed By: Christina Vital MD Signed By: Christina Vital MD Signed Date/Time: 02/20/22 12:33 pm Transcribed By: ROBERT Transcribed Date/Time: 02/20/22 12:32 pm Portable XR Chest Views * NIKHIL Roberts S: TRANSCRIBE Christina Vital MD: VERIFY Event Display: Result: Authored Date: [id number] Examination: Portable chest performed on 02/20/2022. History: Shortness of breath. Findings: A frontal view of the chest is compared to a prior study dated 01/28/2022. There is stable enlargement of the cardiac silhouette. Prominence of the pulmonary vasculature is noted without overt edema. Osteophyte formation throughout the thoracic spine is identified. IMPRESSION: Minimal pulmonary vascular congestion. WSN: [id number] Ordering Physician: Lalito Kendall Dictated By: Christina Vital MD Dictated Date/Time: 02/20/22 8:45 am Reviewed By: Christina Vital MD Signed By: Christina Vital MD Signed Date/Time: 02/20/22 8:45 am Transcribed By: ROBERT Transcribed Date/Time: 02/20/22 8:44 am Patient Care team information Care Team Personnel Name: Oziel Tapia RN Position: [facility] RN Member Role: Primary Care Nurse Name: Aria Patel RN Position: [facility] RN Member Role: Primary Care Nurse Name: Summer Donis Position: S RN Member Role: Primary Care Nurse Name: Yaneth Gray RN Position: [facility] RN Member Role: Primary Care Nurse Name: Sagrario Eden Position: [facility] RN Member Role: Primary Care Nurse Name: Brandin Valdez MD Position: [facility] Physician (General Medicine) Member Role: PCP Address: Address: [address] [place] [address]- Name: Taras Yuen RN Position: S RN Member Role: Primary Care Nurse Name: Lashaun Baeza RN Position: S RN Member Role: Primary Care Nurse Name: Aditi Clifton RN Position: [facility] RN Member Role: Primary Care Nurse Name: Fatemeh Saldaña PharmD Position: [facility] Associate Professional Member Role: [employer] Provider Address: Address: [address] [place] [id number]- Name: Fatemeh Hernandez Position: S Outreach Member Role: [employer] Physician Name: Clair Beckwith RN Position: [facility] RN Member Role: Primary Care Nurse Name: Nabeel Agarwal MD Position: [facility] Renal MD Member Role: [employer] Physician Address: Address: [address] [facility] [place] [address]- Name: Michaela Funes RN Position: [facility] RN Member Role: Primary Care Nurse Name: Arabella Mcghee Position: [facility] Outreach Member Role: [employer] Physician Name: Tangela Segovia LPN Position: [facility] RN Member Role: Primary Care Nurse Name: Silvia VALENTIN Attending Position: [facility] ED Medicine MD Name: Tracie Posada Position: [facility] ED TA [facility] Member Role: Registry Np Name: Rabia Davies RN Position: [facility] ED RN W/OE and Tasks Member Role: Patient Care Provider Care Team Related Persons Name: HANS BEAR Address: home [address] [place] [address] Name: CHATO PARKS Address: home [address] [place] [address]
--- OUTSIDE RECORDS SUMMARY | 2023-02-07 20:14 | XMS_ITS | Continuity of Care Document ---
Author Name Unknown Organization [facility] ter Address [address] [place] [address]- Care Team Providers Care Math Specialist Name Role Phone Brandin Valdez MD Primary Care Physician [phone] Encounter [facility] [place] Date(s): 05/11/22 - 05/11/[address] [address]- Encounter Diagnosis COVID-19(Final) - 05/11/22 Pulmonary nodule(Final) - 05/11/22 Discharge Disposition: A-D/C Home Attending Physician: Luis E Ghosh MD Admitting Physician: Luis E Ghosh MD Referring Physician: Not on Staff, Referring [...] 7:13:00 EST, Route to Pharmacy Electronically, [facility], Partial fill upon patient [...] Refills, Maintenance, 04/20/22 15:26:00 EST, Tablet, [facility], Partial fill upon patient request if the prescription is for... Start Date: 04/20/22 Stop Date: 05/20/22 Status: Ordered warfarin 5 mg oral tablet See Instructions, Take 1 to 2.5 tablets by mouth daily as directed by the [facility], # 225 tablet, 1 Refills, Maintenance, 04/13/22 17:25:00 EST, Tablet, [id number], Partial fill upon patient request if the prescription is for a schedule... Start Date: 04/13/22 Status: Ordered warfarin 5 mg oral tablet See Instructions, Take 1 to 2 and 1/2 tablets by mouth daily as directed by the [facility], # 30 tablet, 4 Refills, Maintenance, 04/20/22 15:25:00 EST, Tablet, [facility], Partial fill upon patient [...] Exam Date Time Procedure Performing Provider Status 05/11/22 5:06 PM Chest 2 Views Frontal and Lat Aicha Frias; Auth (Verified) Notes: (Chest 2 Views Frontal and Lat) Reason For Exam: Chest Pain;Other: RESULT: Chest 2 Views Frontal and Lat PA and lateral chest dated April 20162022. Comparison films are from April 19, 2022. HISTORY: Chest pain. FINDINGS: The cardiac silhouette is within normal limits for size. Hilar and mediastinal structuresare unremarkable. No airspace infiltrate or pleural effusion is identified. There is a small faint nodular density overlying the lateral aspect of the left lower lobe. This is not seen on the lateralview. Degenerative changes are noted in the spine. Findings are consistent with DISH. IMPRESSION: Faint nodular density overlying the left lower lobe. Nonemergent CT is recommended for further evaluation. No evidence of acute pulmonary disease. Examination 27506. Thank you for allowing me to participate in the care of this patient. WSN: [id number] Ordering Physician: Love Estrada Dictated By: Uzair Jiménez MD Dictated Date/Time: 05/11/22 5:12 pm Reviewed By: Uzair Jiménez MD Signed By: Uzair Jiménez MD Signed Date/Time: 05/11/22 5:12 pm Transcribed By: ROBERT Transcribed Date/Time: 05/11/22 5:11 pm Vital Signs Most recent to oldest [Reference Range]: 1 2 3 Height 168 cm (05/11/22 6:12 PM) 168 cm (05/11/22 4:16 PM) 168 cm (05/11/22 1:21 PM) Weight 102 kg (05/11/22 6:12 PM) 102 kg (05/11/22 4:16 PM) 102 kg (05/11/22 1:21 PM) Oxygen Saturation [94-100 %] 98 % (05/11/22 9:00 PM) 98 % (05/11/22 7:20 PM) 100 % (05/11/22 6:12 PM) Pulse Rate [55-90 bpm] 67 bpm (05/11/22 9:00 PM) 64 bpm (05/11/22 7:20 PM) 67 bpm (05/11/22 6:12 PM) Body Mass Index [18.5-24.99 kg/m2] 36.14 kg/m2 *>HHI* (05/11/22 6:12 PM) 36.14 kg/m2 *>HHI* (05/11/22 4:16 PM) Blood Pressure [90-138/55-84 mm Hg] 160/84mm Hg *H* (05/11/22 9:00 PM) 198/91mm Hg *H* (05/11/22 7:20 PM) 171/104mm Hg *H* (05/11/22 6:12 PM) Respiratory Rate [16-30 br/min] 18 br/min (05/11/22 9:00 PM) 18 br/min (05/11/22 7:20 PM) 19 br/min (05/11/22 6:12 PM) Temperature [96.8-100.4 DegF] 98 DegF (05/11/22 9:00 PM) 98.2 DegF (05/11/22 7:20 PM) 98.6 DegF (05/11/22 6:12 PM) Liters per Minute 0 L/min (05/11/22 4:16 PM) 0 L/min (05/11/22 12:07 PM) Mode of Delivery (Oxygen) Room air (05/11/22 9:00 PM) Room air (05/11/22 7:20 PM) Room air (05/11/22 6:12 PM) Blood pressure sites Arm, right (05/11/22 9:00 PM) Arm, left (05/11/22 7:20 PM) Arm, left (05/11/22 6:12 PM) Temperature Route Oral (05/11/22 9:00 PM) Oral (05/11/22 7:20 PM) Oral (05/11/22 6:12 PM) Dry Weight 102 kg (05/11/22 6:12 PM) 102 kg (05/11/22 4:16 PM) 102 kg (05/11/22 1:21 PM) Social History Social History Type Response Smoking Status Never (less than 100 in lifetime) entered on: 02/14/22 Sex Note * Luis E Ghosh MD: PERFORM Event Display: Patient Education Leaflets Authored Date: [id number] COVID-19 Positive Self Isolation Instruction ?? 91 SELF-ISOLATION INSTRUCTIONS ?? IMPORTANT INSTRUCTIONS ABOUT SELF-ISOLATION (and quarantine) FOR PEOPLE WITH VIRUS SYMPTOMS ?? This information is for patients with Positive COVID-19 (Coronavirus). It is extremely important that you follow these instructions. ?? General Information You came to the Emergency Department with symptoms of a viral illness, including muscle aches, fevers, chills, runny nose, cough, sneezing, sore throat, vomiting or diarrhea. You were diagnosed with COVID-19, also known as the coronavirus. ?? What should you do next Most people have mild symptoms and recover on their own. Resting, staying hydrated, and sleeping are typically helpful. As of today ???s visit, you are well enough to go home and treat your symptoms with oral fluids, medicines for fevers, cough, pain, etc. You can use medication such as Acetaminophen (Tylenol) for fevers, cough and pain. There is no special medicine or vaccine for COVID-19.? However, it is very important for you to do certain things to prevent the spread of the virus. ?? We want to help you keep other people from getting this virus. Older people and people with illnesses are at high risk of severe illness. Please follow the steps below and contact your primary care physician for further help. ?? 1. Stay home except to get medical care. People who are mildly ill with COVID-19 should stay at home during their illness. In order to not infect other people, avoid contact with others both inside and outside your home. ? Do not go to work, school, or to any public areas. ??? Avoid grocery shopping if possible - have a friend or family member waste picker food and drop it off. ??? Avoid large crowds, public transportation, ride sharing or taxis. ?? 2. Wash your hands often. Wash your hands often with soap and water for at least 20 seconds. If soap and water are not available, clean your hands with an alcohol- based hand flight attendant/inflight supervisor that contains at least 60% alcohol, covering all surfaces of your hands and rubbing them together until they feel dry. Avoid touching your eyes, nose, and mouth with unwashed hands. ?? 3. Cover your coughs and sneezes. Cover your mouth and nose with a tissue when you cough or sneeze Throw used tissues in a lined trash can; immediately wash your hands with soap and water for at least20 seconds or clean your hands with an alcohol-based hand flight attendant/inflight supervisor that contains at least 60 to 95% alcohol, covering all surfaces of your hands and rubbing them together until they feel dry. ?If you have to leave your house to go to a public place or see a doctor, wear a surgical mask (or bandana, or scarf) to catch your cough. ?? 4. Separate yourself from other people and animals in yourhouse for at least 14 days. If possible, stay in a specific room away from other people. If you have a separate bathroom, have one bathroom be for the sick person only. Do not handle pets or other animals. You should not share dishes, drinking glasses, cups, eating utensils, towels, or bedding with other people or pets in your home. After using these items, they should be washed thoroughly with soap and water. The elderly and people who have chronic illness have a higher risk of becoming very sick if they get COVID-19. Please try to avoid contact with people over 60 years old or anyone with chronic heart or lung disease, diabetes, or any condition that weakens their immune system (cancer, transplant patients). ?? 5. Clean all ???high-touch?? surfaces every day. ?? High touch surfaces include counters, tabletops, doorknobs, bathroom fixtures, toilets, phones, keyboards, tablets, and bedside tables. Also, clean any surfaces that may have blood, stool, or body fluids on them. Use a household cleaning spray or wipe, according to the label instructions. ?? 6. Wear a facemask. You shouldwear a facemask when you are around other people and before you enter a healthcare provider ???s office. If you are not able to wear a facemask (for example, because it causes trouble breathing), then people who live with you should not stay in the same room with you, or they should wear a facemaskif they enter your room. ?? 7. Call ahead before visiting your doctor. If you need to see your doctor, it is essential that you call first and tell them that you have or may have COVID-19. This will help the healthcare provider ???s office take steps to keep other people from getting infected or exposed. ?? When to return to the Emergency Department ?? Please return to the emergency department ifyou feel you are getting sicker, for example: worsening difficulty breathing or chest pain, if you are unable to eat or drink, if you have severe vomiting, diarrhea, weakness, fainting or near fainting.?? If possible, put on a facemask before you enter the hospital to protect other patients.?? If you feel you are sick enough to call 911, please tell them you may have COVID. ?? Medications you cantake If able, you can take Acetaminophen (Tylenol) 500mg every 4-6 hours for pain or fever. Please continue your regular medications. It is very important to stay as healthy as possible. ?? When can I go back to my regular life? Once you have NO SYMPTOMS (no fever, no cough, no runny nose) for 14 days, you can go back to work. If testing becomes available before then, you could get tested. However, you should call and confirm that you can get a test before leaving your house. ? Taking care of your mental health You might be feeling anxious, afraid, lonely or uncertain. Below is a link for a list of helpful behavioral health resources, and a few tips for taking care of your emotional health while you're quarantined. https://[employer].com.[facility].gov/system/files/jjt01-3448.pdf ?? Additional information can be found on the following websites: ? CDC [place] Website General Information: https://www.cdc.gov/coronavirus/2019-ncov/faq.html ?? Important Instructions for family members and household contacts How do I take care of someone who's quarantined in my home? If you are providing carefor a person infected or suspected to be infected with COVID-19, please note the following. These instructions are also at this link: https://www.cdc.gov/coronavirus/2019-ncov/hcp/ssselhsd-lnnfnhz-zmjbut.html ?? Household members, intimate partners, and caregivers in a non-health care setting may have close contact (within 6 feet) with a person with symptomatic, laboratory-confirmed COVID-19 or aperson under investigation. Those in close contact should monitor their health and should call their health care provider right away if they develop symptoms suggestive of COVID-19 (e.g., fever, cough, shortness of breath). ?? Those in close contacts should also follow these recommendations: ??? Make sure that you understand and can help the patient follow their health care provider ???s instructions for medication(s) and care. You should help the patient with basic needs in the home and provide support for getting groceries, prescriptions and other personal needs. ? Monitor the patient???s symptoms. If the patient is getting sicker, call his or her health care provider and tell them that the patient has laboratory-confirmed or is under investigation for COVID-19. This will help the health care provider???s office take steps to keep other people in the office or waiting room from tting infected. Ask the health care provider to call the local or [facility] health department for additional guidance. If the patient has a medical emergency and you need to call 911, notify the dispatchpersonnel that the patient has, or is being evaluated for COVID-19. ? Household members shouldstay in another room or be from the patient as much as possible. Household members shoulduse a separate bedroom and bathroom, if available. ? Prohibit visitors who do not have an essential need to be in the home. ? Household members should care for any pets in the home. Do not handle pets or other animals while sick. ? Make sure that shared spaces in the home have good ai rflows, such as by an air conditioner or an opened window, weather permitting. ? Perform hand hygiene frequently. Wash your hands often with soap and water for at least 20 seconds or use an alcohol-based hand flight attendant/inflight supervisor that contains 60 to 95% alcohol, covering all surfaces of your hands and rubbing them together until they feel dry. Soap and water should be used preferentially if hands are visibly dirty. ? Avoid touching your eyes, nose, and mouth with unwashed hands. ? You and the patient should wear a facemask if you are in the same room. ? Wear a disposable facemask andgloves when you touch or have contact with the patient???s blood, stool, or body fluids, such as saliva, sputum, nasal mucus, vomit or urine. ?? - Throw out disposable facemasks and gloves after using them. Do not reuse. ?? - When removing personal protective equipment, first remove and dispose of gloves. ?? Then, immediately clean your hands with soap and water or alcohol-based hand ? flight attendant/inflight supervisor. Next, remove and dispose of facemask, and immediately clean your ? hands again with soap and w ater or alcohol-based hand flight attendant/inflight supervisor. ? Avoid sharing household items with the patient. You should not share dishes, drinking glasses, cups, eating utensils, towels, bedding or other items. After the patient uses these items, you should wash them thoroughly (see below ???Wash laundry thoroughly?? ). ? Clean all high-touch surfaces, such as counters, tabletops, doorknobs, bathroom fixtures, toilets, phones, keyboards, tablets and bedside tables, every day. Also, clean any surfaces thatmay have blood, stool, or body fluids on them. ?? - Use a household cleaning spray or wipe, according to the label instructions. Labels ?? contain instructions for safe and effective use of the cleaning product including ?? precautions you should take when applying the product, such as wearing gloves ? and making sure you have good ventilation during the use of the product. ? Wash laundrythoroughly. ?? -?? Immediately remove and wash clothes or bedding that have blood, stool, or body ? fluids on them. ?? -?? Wear disposable gloves while handling soiled items and keep soiled items away ? from your body. Clean your hands (with soap and water or an alcohol-based hand ? flight attendant/inflight supervisor) immediately after removing your gloves. ?? - Read and follow directions on labels of laundry or clothing items and detergent. In ?? general, using a normal laundry detergent according to was [employer] machine ?? instructions and dry thoroughly using the warmest temperatures recommended on ?? the clothing label. ? Place all used disposable gloves, facemasks, and other contaminated items in a lined container before disposing of them with other household waste. Clean your hands (with soapand water or an alcohol-based hand flight attendant/inflight supervisor) immediately after handling these items. Soap and water should be used preferentially if hands are visibly dirty. ? Discuss any additional questions with your state or local health department or health care provider. ?? What do I do if I develop symptoms? You should stay home, as above, and seek medical care only if you are having difficulty breathing or other severe symptoms. ? * BHSPowerscribe , CIS S: TRANSCRIBE Uzair Jiménez MD: VERIFY Event Display: Result: Authored Date: [id number] PA and lateral chest dated April 20162022. Comparison films are from April 19, 2022. HISTORY: Chest pain. FINDINGS: The cardiac silhouette is within normal limits for size. Hilar and mediastinal structuresare unremarkable. No airspace infiltrate or pleural effusion is identified. There is a small faint nodular density overlying the lateral aspect of the left lower lobe. This is not seen on the lateralview. Degenerative changes are noted in the spine. Findings are consistent with DISH. IMPRESSION: Faint nodular density overlying the left lower lobe. Nonemergent CT is recommended for further evaluation. No evidence of acute pulmonary disease. Examination 32568. Thank you for allowing me to participate in the care of this patient. WSN: [id number] Ordering Physician: Love Estrada Dictated By: Uzair Jiménez MD Dictated Date/Time: 05/11/22 5:12 pm Reviewed By: Uzair Jiménez MD Signed By: Uzair Jiménez MD Signed Date/Time: 05/11/22 5:12 pm Transcribed By: ROBERT Transcribed Date/Time: 05/11/22 5:11 pm Patient Care team information Care Team Personnel Name: Oziel Tapia RN Position: [facility] RN Member Role: Primary Care Nurse Name: Aria Patel RN Position: [facility] AMB Nurse Member Role: Primary Care Nurse Name: Summer Donis Position: S RN Member Role: Primary Care Nurse Name: Yaneth Gray RN Position: [facility] RN Member Role: Primary Care Nurse Name: Sagrario Eden Position: [facility] RN Member Role: Primary Care Nurse Name: Brandin Valdez MD Position: [facility] Physician (General Medicine) Member Role: PCP Address: Address: [address] [place] [address]- Name: Taras Yuen RN Position: [facility] RN Member Role: Primary Care Nurse Name: Aditi Clifton RN Position: [facility] RN Member Role: Primary Care Nurse Name: Fatemeh Saldaña PharmD Position: [facility] Associate Professional Member Role: Lifetime Consulting Provider Address: Address: [address] [facility] [place] [address]- [place] Name: Fatemeh Hernandez Position: [facility] Outreach Member Role: Lifetime Consulting Physician Name: Katt Márquez RN Position: [facility] RN Member Role: Primary Care Nurse Name: Nabeel Agarwal MD Position: [facility] Renal MD Member Role: Lifetime Consulting Physician Address: Address: [address] [facility] [place] [address]- [place] Name: Michaela Funes RN Position: [facility] RN Member Role: Primary Care Nurse Name: Arabella Mcghee Position: [facility] Outreach Member Role: Lifetime Consulting Physician Name: Tangela Segovia LPN Position: [facility] RN Member Role: Primary Care Nurse [facility] Attending Position: [facility] ED Attendings Patient Name: Luis E Ghosh MD Position: [facility] ED Medicine MD Member Role: Admitting Physician Address: Address: [address] [place] [address] [facility] [place] [address]- [place] Name: Moraima Casey Position: [facility] ED TA [facility] Member Role: Plaster Mold Maker Name: Abby Marinelli RN Position: [facility] ED RN W/OE and Tasks Member Role: Patient Care Provider Care Team Related Persons Name: HANS TAMAYO Address: home [address] [place] [address] Name: CHATO PARKS Address: [address] [place] [address]
--- OUTSIDE RECORDS SUMMARY | 2023-02-07 20:14 | XMS_ITS | Continuity of Care Document ---
Author Name Unknown Organization [facility] Address [address] [address]- Care Team Providers Care Representative Personal Service Name Role Phone Brandin Valdez MD Primary Care Physician [phone] Encounter [facility] Date(s): 11/11/19 - 11/18/19 [facility] [address] [address]- [facility] Attending Physician: [place] MD Referring Physician: Brandin Valdez MD Allergies, Adverse Reactions, Alerts Substance Reaction Severity Status NKA Active
--- OUTSIDE RECORDS SUMMARY | 2023-02-07 20:14 | XMS_ITS | Continuity of Care Document ---
Author Name Unknown Organization [facility] Address [address] [address]- Care Team Providers Care Hand Bootmaker Name Role Phone Brandin Valdez MD Primary Care Physician Encounter [facility] Date(s): 11/11/19 - 12/11/19 [facility] Card[facility] Surgery [address] [address]- [facility] Attending Physician: Admtr, Ar8 Admitting Physician: Admtr, Ar8 Referring Physician: Admtr, Ar8 Allergies, Adverse Reactions, Alerts Substance Reaction Severity Status NKA Active
--- OUTSIDE RECORDS SUMMARY | 2023-02-07 20:14 | XMS_ITS | Continuity of Care Document ---
Author Name Unknown Organization [facility] ter Address [address] [place] [id number]- Care Team Providers Care [employer] Name Role Phone Brandin Valdez MD Primary Care Phys[place] [facility] [place] - 11/01/[address] [id number]- Discharge Disposition: A-D/C Home Attending Physician: Cecil Marr MD Admitting Physician: Cecil Marr MD Referring Physician: Not on Staff, Referring [...] 09/24/22 16:47:00 EDT, Route to Pharmacy Electronically, [facility], Partial fill upon patient request if the prescription is for a schedule II opioi... Start Date: 09/24/22 Status: Ordered atorvastatin 10 mg oral tablet 1 tablet = 10 mg, By Mouth, Daily, # 30 tablet, 0 Refills, Maintenance, 09/24/22 14:23:00 EDT, Tablet, [facility], Partial fill upon patient request if the prescription is for a schedule II opioid drug., 170.7, cm, 09/23/22 22:36:00 EDT,... Start Date: 09/24/22 Status: Ordered brimonidine 0.2% ophthalmic solution See Instructions, 1 drops Every 8 hours to right eye, # 15 mL, 0 Refills, Maintenance, 09/24/22 14:22:00 EDT, Ophth Solution, [facility], Partial fill upon patient request if the prescription is for a schedule II opioid drug., 1 drops Ev... Start Date: 09/24/22 Status: Ordered carvedilol 3.125 mg oral tablet 3.125 mg, 1, tablet, By Mouth, 2 times a day, # 60 tablet, Refills 0, Tot. Refills 0, Maintenance, 09/24/22 14:22:00 EDT, Route to Pharmacy Electronically, [facility], Partial fill uponpatient request if the prescription is for a schedu... Start Date: 09/24/22 Status: Ordered duloxetine 30 mg oral enteric coated capsule 1 capsule = 30 mg, By Mouth, 2 times a day, # 60 capsule, 0 Refills, Maintenance, 09/24/22 16:47:00EDT, Capsule, [facility], Partial fill upon patient request if the prescription is for a schedule II opioid drug., 170.7, cm, 09/23/22 22... Start Date: 09/24/22 Status: Ordered Entresto 24 mg-26 mg oral tablet 1 tablet, By Mouth, 2 times a day, # 60 tablet, 0 Refills, Maintenance, 09/24/22 14:23:00 EDT, Tablet, [facility] 3, Partial fill upon patient request if the prescription is for a schedule II opioid drug., 1 tablet By Mouth 2 times a day,... Start Date: 09/24/22 Status: Ordered escitalopram 10 mg oral tablet 2 tablet = 20 mg, By Mouth, Daily, # 60 tablet, 0 Refills, Maintenance, 09/24/22 16:46:00 EDT, [facility] Partial fill upon patient request [...] 0 Refills, Maintenance, 09/24/22 16:46:00 EDT, Tablet, [facility], Partial fill upon patient request if the prescription is for a schedule II opioid drug., 170.7, cm, 06... Start Date: 09/24/22 Status: Ordered midodrine 5 mg oral tablet 5 mg, 1, tablet, By Mouth, 3 times a day, # 90 tablet, Refills 0, Tot. Refills 0, Maintenance, 09/24/22 14:23:00 EDT, Route to Pharmacy Electronically, [facility], Partial fill upon patient request if the prescription is for a schedule I... Start Date: 09/24/22 Status: Ordered topiramate 100 mg oral tablet 1 tablet = 100 mg, By Mouth, 2 times a day, # 60 tablet, 0 Refills, Maintenance, 09/24/22 16:46:00 EDT, Tablet, [facility], Partial fill upon patient request [...] 1 Refills, Maintenance, 07/23/22 11:24:00 EDT, Tablet, [facility], Partial fill upon patient request if the prescription is for a schedule I... Start Date: 07/23/22 Status: Ordered warfarin 5 mg oral tablet 2-3 tablets, By Mouth, Daily, TAKE 2 TO 3 TABLETS PO DAILY DIRECTED BY [facility], # 90 tablet, 9 Refills, Maintenance, 09/25/22 11:40:00 EDT, [facility], Partial fill upon patient request if the prescription is for a schedule II... Start Date: 09/25/22 Status: Ordered warfarin 5 mg oral tablet See Instructions, Take 1 to 2 and 1/2 tablets by mouth daily as directed by [facility], # 30 tablet, 4 Refills, Maintenance, 04/20/22 15:25:00 EST, Tablet, [facility], Partial fill upon patient request if the prescription is for... Start Date: 04/20/22 Status: Ordered warfarin 5 mg oral tablet See Instructions, take 2-3 tabs by mouth daily as directed by the [facility] clinic, # 270 tablet, 2Refills, Maintenance, 10/25/22 10:01:00 EDT, [facility], Partial fill upon patient request if [...] Exam Date Time Procedure Performing Provider Status 11/01/22 2:[address] Cervical Spine W/O Contrast Michaela Lord; Auth (Verified) Notes: (CT Cervical Spine W/O Contrast) Reason For Exam: Neck trauma, dangerous injury mechanism;Other: RESULT: CT Cervical Spine W/O Contrast CT Head/Brain W/O Contrast, CT Cervical Spine W/O Contrast INDICATION: Headache(s); Clinical Question(s): Other:; Order Comment: TECHNIQUE: Noncontrast head CT using axial technique was reconstructed in axial and coronal planes.Noncontrast spiral CT through the cervical spine was formatted in 3 planes. Automatic tube modulation was used for the cervical spine and iterative dose reconstruction was used for both the head and cervical spine to optimize scan parameters and image quality. CTDIvol Body: 14.90 mGy, DLP Body: 402 mGy*cm. CTDIvol Head: 39.70 mGy, DLP Head: 672 mGy*cm. COMPARISON: CT of head on 08/17/[address] of cervical spine on 05/25/2022. FINDINGS: Valuation Manager View Findings, Lines and Tubes: None. BRAIN AND EXTRA-AXIAL SPACES: No parenchymal hemorrhage, midline shift, or mass effect. Arreguin-white matter differentiation is wellpreserved. No acute infarct. Ventricles, sulci, and basilar cisterns are normal. Mild low-density white matter changes. No subarachnoid hemorrhage. No subdural or epidural collection. CALVARIUM, SKULL BASE, AND SOFT TISSUES: No fractures or suspicious bony lesions. The mastoid air cells are clear. Mucosal thickening and air-fluid level is seen in the left maxillary sinus. Visualized orbits and globes are intact. The extracranial soft tissues are unremarkable. CERVICAL SPINE: No fracture. No acute osseous abnormalities. Normal alignment. No locked or perched facet. Intervertebral disc spaces and vertebral body heightsare preserved. OTHER BONES: No acute abnormality. CERVICAL SOFT TISSUES AND LUNG APICES: Prominent lingual tonsils containing focal coarse calcifications which could be due to prior infection. Please correlate clinically. Visualized lung apices are clear. IMPRESSION: No acute abnormality of the head or cervical spine. WSN: [id number] Ordering Physician: Tanya Berger Dictated By: Luis Sousa MD Dictated Date/Time: 11/01/22 2:46 pm Reviewed By: Luis Sousa MD Signed By: Luis oSusa MD Signed Date/Time: 11/01/22 2:46 pm Transcribed By: ROBERT Transcribed Date/Time: 11/01/22 2:46 pm * Exam Date Time Procedure Performing Provider Status 11/01/22 2:[address] Head/Brain W/O Contrast Michaela Reese; Arslan (Verified) Notes: (CT Head/Brain W/O Contrast) Reason For Exam: Headache(s) RESULT: CT Head/Brain W/O Contrast CT Head/Brain W/O Contrast, CT Cervical Spine W/O Contrast INDICATION: Headache(s); Clinical Question(s): Other:; Order Comment: TECHNIQUE: Noncontrast head CT using axial technique was reconstructed in axial and coronal planes.Noncontrast spiral CT through the cervical spine was formatted in 3 planes. Automatic tube modulation was used for the cervical spine and iterative dose reconstruction was used for both the head and cervical spine to optimize scan parameters and image quality. CTDIvol Body: 14.90 mGy, DLP Body: 402 mGy*cm. CTDIvol Head: 39.70 mGy, DLP Head: 672 mGy*cm. COMPARISON: CT of head on 08/17/[address] of cervical spine on 05/25/2022. FINDINGS: Valuation Manager View Findings, Lines and Tubes: None. BRAIN AND EXTRA-AXIAL SPACES: No parenchymal hemorrhage, midline shift, or mass effect. Arreguin-white matter differentiation is wellpreserved. No acute infarct. Ventricles, sulci, and basilar cisterns are normal. Mild low-density white matter changes. No subarachnoid hemorrhage. No subdural or epidural collection. CALVARIUM, SKULL BASE, AND SOFT TISSUES: No fractures or suspicious bony lesions. The mastoid air cells are clear. Mucosal thickening and air-fluid level is seen in the left maxillary sinus. Visualized orbits and globes are intact. The extracranial soft tissues are unremarkable. CERVICAL SPINE: No fracture. No acute osseous abnormalities. Normal alignment. No locked or perched facet. Intervertebral disc spaces and vertebral body heightsare preserved. OTHER BONES: No acute abnormality. CERVICAL SOFT TISSUES AND LUNG APICES: Prominent lingual tonsils containing focal coarse calcifications which could be due to prior infection. Please correlate clinically. Visualized lung apices are clear. IMPRESSION: No acute abnormality of the head or cervical spine. WSN: [id number] Ordering Physician: Tanya Berger Dictated By: Luis Sousa MD Dictated Date/Time: 11/01/22 2:46 pm Reviewed By: Luis Sousa MD Signed By: Luis Sousa MD Signed Date/Time: 11/01/22 2:46 pm Transcribed By: ROBERT Transcribed Date/Time: 11/01/22 2:46 pm Vital Signs Most recent to oldest [Reference Range]: 1 2 Oxygen Saturation [94-100 %] 97 % (11/01/22 4:09 PM) 100 % (11/01/22 2:02 PM) Pulse Rate [55-90 bpm] 70 bpm (11/01/22 4:09 PM) 68 bpm (11/01/22 2:02 PM) Blood Pressure [90-138/55-84 mm Hg] 163/ 93mm Hg *H* (11/01/22 4:09 PM) 154/95mm Hg *H* (11/01/22 2:02 PM) Respiratory Rate [16-30 br/min] 20 br/mi n (11/01/22 4:09 PM) 15 br/min *L* (11/01/22 2:02 PM) Temperature [96.8-100.4 DegF] 97.9 DegF (11/01/22 4:09 PM) 98.1 DegF (11/01/22 2:02 PM) Mode of Delivery (Oxygen) Room air (11/01/22 4:09 PM) Room air (11/01/22 2:02 PM) Blood pressure sites Arm, left (11/01/22 4:09 PM) Temperature Route Oral (11/01/22 4:09 PM) Oral (11/01/22 2:02 PM) Social History Social History Type Response Smoking Status Never (less than 100 in lifetime) entered on: 02/14/22 Sex Note * Tanya Berger DO: PERFORM Event Display: Patient Education Leaflets Authored Date: [id number] Head Injury: Adult ?? 697 Head Injury (Adult) You have a head injury. It doesn't appear serious at this time. But symptoms of a more serious problem, such as a mild brain injury (concussion) or bruising or bleeding in the brain, may appear later. For this reason, you or someone caring for you will need to watch for the symptoms listed below. Once you are home, also be sure to follow any care additional instructions you were given. ?? Home care Watch for the following symptoms Seek emergency medical care if you have any of these symptoms over the next hours to days: ??? Headache that gets worse or doesn't go away ??? Nausea or vomiting ??? Dizziness ??? Sensitivity to light or noise ??? Unusual sleepiness or grogginess ??? Trouble falling asleep ??? Personality changes ??? Vision changes ??? Memory loss ??? Confusion ??? Trouble walking or clumsiness ??? Loss of consciousness (even for a short time) ??? Inability to be awakened ??? Stiff neck ??? Weakness ornumbness in any part of the body ??? Seizures ?? General care ??? If you were prescribed medicines for pain, use them as directed. Note: Don???t take other medicines for pain without talking to your provider first. ??? To help reduce swelling and pain, apply a cold source to the injured area for up to 20 minutes at a time. Do this as often as directed. Use a cold pack or bag of ice wrapped in a thin towel. Never apply a cold source directly to the skin. ???If you have cuts or scrapes as a result of your head injury, care for them as directed. For the next 24 hours (or longer, if instructed): ??? Don???t drink alcohol or use sedatives or other medicines that make you sleepy. ??? Don???t drive or operate machinery. ??? Don???t do anything strenuous, such as heavy lifting or straining. ??? Limit tasks that require concentration. This includes reading, using a smartphone or computer, watching TV, and playing video games. ??? Don???t return to sports or other activities that could result in another head injury until approved by your healthcare provider. ?? Follow-up care Follow up with your healthcare provider, or as directed. If imaging tests were done, they will be reviewed by a doctor. You will be told the results and any new findings that may affect your care. ?? When to seek medical advice Call your healthcare provider right away if any of these occur: ??? Pain doesn???t get better or worsens ??? New or increased swelling or bruising ??? Increased redness, warmth, drainage, or bleeding from the injured area ??? Fluid drainage or bleeding from the nose or ears ??? Any depression or bony abnormality in the injured area ??? Persistent confusion or lethargy ??? Personality changes ??? Bruising behind the ears or bruising around the eyes ? Patient Care team information Care Team Personnel Name: DodsonRylie seymour Position: [facility] RN Member Role: Primary Care Nurse Name: Oziel Tapia RN Position: [facility] RN Member Role: Primary Care Nurse Name: Aria Patel RN Position: [facility] [place] Nurse Member Role: Primary Care Nurse Name: Summer Donis Position: [facility] RN Member Role: Primary Care Nurse Name: Albert Hernandez RN Position: [facility] RN Member Role: Primary Care Nurse Name: Yaneth Gray RN Position: [facility] SN RN Member Role: Primary Care Nurse Name: Sagrario Eden Position: [facility] RN Member Role: Primary Care Nurse Name: Brandin Valdez MD Position: [facility] Physician - Primary Care Member Role: PCP Address: Address: [address] [place] [address]- [place] Name: Taras Yuen RN Position: [facility] RN Member Role: Primary Care Nurse Name: Maricarmen Meraz RN Position: [facility] RN Member Role: Primary Care Nurse Name: Aditi Clifton RN Position: [facility] RN Member Role: Primary Care Nurse Name: Mary Fisher Position: [facility] RN Member Role: Primary Care Nurse Name: Fatemeh Saldaña PharmD Position: [facility] Associate Professional Member Role: Lifetime Consulting Provider Address: Address: [address] [place] [address]- Name: Fatemeh Hernandez Position: [facility] Outreach Member Role: Lifetime Consulting Physician Name: Katt Márquez RN Position: [facility] RN Member Role: Primary Care Nurse Name: Nabeel Agarwal MD Position: [facility] Renal MD Member Role: Lifetime Consulting Physician Address: Address: [address] [place] [address] [address] [facility] [place] [address]- Name: Michaela Funes RN Position: [facility] RN Member Role: Primary Care Nurse Name: Susy Jose RN Position: [facility] RN Member Role: Primary Care Nurse Name: Brandon Stevens MD Position: [facility] Renal MD Member Role: Lifetime Consulting Physician Address: Address: [address] [facility] [place] [place] [address]- Name: Arabella Mcghee Position: [facility] Outreach Member Role: Lifetime Consulting Physician Name: Tangela Segovia LPN Position: [facility] RN Member Role: Primary Care Nurse Name: Joel Quintanilla RN Position: [facility] ED RN W/OE and Tasks Member Role: Patient Care Provider Name: Tanya Berger DO Position: [facility] Resident Member Role: ED Resident Address: Address: [address] [place] [address] [place] [address]- Name: Cecil Marr MD Position: [facility] ED Medicine MD Member Role: Admitting Physician Address: Address: [address] [place] [address] [place] [address]- Name: Bryan Garvin Position: S ED [facility] Member Role: Manager Risk Care Team Related Persons Name: HANS TAMAYO Address: home [address] [place] [address] Name: CHATO PARKS Address: home [address] [place] [address]
--- OUTSIDE RECORDS SUMMARY | 2023-02-07 20:14 | XMS_ITS | Continuity of Care Document ---
Author Name Unknown Organization [facility] Address [address] [place] [address]- Care Team Providers Care Pnp Name Role Phone Brandin Valdez MD Primary Care Physician [place] [facility] [place] [facility] [address] [place] [address]- Attending Physician: Admtr, [id number] Admitting Physician: [id number] Referring Physician: Admtr, [id number] Allergies, Adverse Reactions, [...] 09/24/22 16:47:00 EDT, Route to Pharmacy Electronically, [facility], Partial fill upon patient request if the prescription is for a schedule II opioi... Start Date: 09/24/22 Status: Ordered atorvastatin 10 mg oral tablet 1 tablet = 10 mg, By Mouth, Daily, # 30 tablet, 0 Refills, Maintenance, 09/24/22 14:23:00 EDT, Tablet, [facility], Partial fill upon patient request if the prescription is for a schedule II opioid drug., 170.7, cm, 09/23/22 22:36:00 EDT,... Start Date: 09/24/22 Status: Ordered brimonidine 0.2% ophthalmic solution See Instructions, 1 drops Every 8 hours to right eye, # 15 mL, 0 Refills, Maintenance, 09/24/22 14:22:00 EDT, Ophth Solution, [facility], Partial fill upon patient request if the prescription is for a schedule II opioid drug., 1 drops Ev... Start Date: 09/24/22 Status: Ordered carvedilol 3.125 mg oral tablet 3.125 mg, 1, tablet, By Mouth, 2 times a day, # 60 tablet, Refills 0, Tot. Refills 0, Maintenance, 09/24/22 14:22:00 EDT, Route to Pharmacy Electronically, [facility], Partial fill uponpatient request if the prescription is for a schedu... Start Date: 09/24/22 Status: Ordered duloxetine 30 mg oral enteric coated capsule 1 capsule = 30 mg, By Mouth, 2 times a day, # 60 capsule, 0 Refills, Maintenance, 09/24/22 16:47:00EDT, Capsule, [facility], Partial fill upon patient request if the prescription is for a schedule II opioid drug., 170.7, cm, 09/23/22 22... Start Date: 09/24/22 Status: Ordered Entresto 24 mg-26 mg oral tablet 1 tablet, By Mouth, 2 times a day, # 60 tablet, 0 Refills, Maintenance, 09/24/22 14:23:00 EDT, Tablet, [facility], Partial fill upon patient request if the prescription is for a schedule II opioid drug., 1 tablet By Mouth 2 times a day,... Start Date: 09/24/22 Status: Ordered escitalopram 10 mg oral tablet 2 tablet = 20 mg, By Mouth, Daily, # 60 tablet, 0 Refills, Maintenance, 09/24/22 16:46:00 EDT, Tablet, [facility], Partial fill upon patient request if [...] 0 Refills, Maintenance, 09/24/22 16:46:00 EDT, Tablet, [facility], Partial fill upon patient request if the prescription is for a schedule II opioid drug., 170.7, cm, 06... Start Date: 09/24/22 Status: Ordered midodrine 5 mg oral tablet 5 mg, 1, tablet, By Mouth, 3 times a day, # 90 tablet, Refills 0, Tot. Refills 0, Maintenance, 09/24/22 14:23:00 EDT, Route to Pharmacy Electronically, [facility], Partial fill upon patient request if the prescription is for a schedule I... Start Date: 09/24/22 Status: Ordered topiramate 100 mg oral tablet 1 tablet = 100 mg, By Mouth, 2 times a day, # 60 tablet, 0 Refills, Maintenance, 09/24/22 16:46:00 EDT, Tablet, [facility], Partial fill upon patient request [...] 1 Refills, Maintenance, 07/23/22 11:24:00 EDT, Tablet, [id number], Partial fill upon patient request if the prescription is for a schedule I... Start Date: 07/23/22 Status: Ordered warfarin 5 mg oral tablet 2-3 tablets, By Mouth, Daily, TAKE 2 TO 3 TABLETS PO DAILY DIRECTED BY [facility], # 90 tablet, 9 Refills, Maintenance, 09/25/22 11:40:00 EDT, [facility], Partial fill upon patient request if the prescription is for a schedule II... Start Date: 09/25/22 Status: Ordered warfarin 5 mg oral tablet See Instructions, Take 1 to 2 and 1/2 tablets by mouth daily as directed by [facility], # 30 tablet, 4 Refills, Maintenance, 04/20/22 15:25:00 EST, Tablet, [facility], Partial fill upon patient request if the prescription is for... Start Date: 04/20/22 Status: Ordered warfarin 5 mg oral tablet See Instructions, take 2-3 tabs by mouth daily as directed by the [facility], # 270 tablet, 2Refills, Maintenance, 10/25/22 10:01:00 EDT, [facility] #1130, Partial fill upon patient request if [...] Team Personnel Name: Oziel Tapia RN Position: [facility] RN Member Role: Primary Care Nurse Name: Aria Patel RN Position: [facility] [place] Nurse Member Role: Primary Care Nurse Name: Summer Donis Position: [facility] RN Member Role: Primary Care Nurse Name: Albert Hernandez RN Position: [facility] RN Member Role: Primary Care Nurse Name: Yaneth Gray RN Position: [facility] RN Member Role: Primary Care Nurse Name: Sagrario Eden Position: [facility] RN Member Role: Primary Care Nurse Name: Brandin Valdez MD Position: [facility] Physician - Primary Care Member Role: PCP Address: Address: [address] [place] [address]- [place] Name: Taras Yuen RN Position: [facility] RN Member Role: Primary Care Nurse Name: Aditi Clifton RN Position: S RN Member Role: Primary Care Nurse Name: Mary Fsiher Position: S RN Member Role: Primary Care Nurse Name: Fatemeh Saldaña PharmD Position: [facility] Associate Professional Member Role: Lifetime Consulting Provider Address: Address: [address] [place] [address]- Name: Fatemeh Hernandez Position: [facility] Outreach Member Role: Lifetime Consulting Physician Name: Katt Márquez RN Position: [facility] RN Member Role: Primary Care Nurse Name: Nabeel Agarwal MD Position: [facility] Renal MD Member Role: Lifetime Consulting Physician Address: Address: [address] [place] [address] [facility] [place] [address]- Name: Michaela Funes RN Position: [facility] RN Member Role: Primary Care Nurse Name: Susy Jose RN Position: [facility] RN Member Role: Primary Care Nurse Name: Brandon Stevens MD Position: [facility] Renal MD Member Role: Lifetime Consulting Physician Address: Address: [address] [place] [address] [facility] [place] [address]- Name: Arabella Mcghee Position: [facility] Outreach Member Role: Lifetime Consulting Physician Name: Tangela Segovia LPN Position: [facility] RN Member Role: Primary Care Nurse Care Team Related Persons Name: HANS TAMAYO Address: home [address] [place] [address] Name: CHATO PARKS Address: home [address] [place] [address]
--- OUTSIDE RECORDS SUMMARY | 2023-02-07 20:14 | XMS_ITS | Continuity of Care Document ---
Author Name Unknown Organization [facility] Address [address] [place] [address]- Care Team Providers Care Rhia Name Role Phone Brandin Valdez MD Primary Care Physician Encounter [facility] Date(s): 01/05/22 - 09/26/22 [facility] [address], [place] [address] Discharge Disposition: A-D/C Home Attending Physician: Anna GONZALEZ(Hem/Onc)[place] Admitting Physician: Gerry Ng MD Referring Physician: Brandin Valdez MD Allergies, [...] 09/24/22 16:47:00 EDT, Route to Pharmacy Electronically, [facility], Partial fill upon patient request if the prescription is for a schedule II opioi... Start Date: 09/24/22 Status: Ordered atorvastatin 10 mg oral tablet 1 tablet = 10 mg, By Mouth, Daily, # 30 tablet, 0 Refills, Maintenance, 09/24/22 14:23:00 EDT, Tablet, [facility], Partial fill upon patient request if the prescription is for a schedule II opioid drug., 170.7, cm, 09/23/22 22:36:00 EDT,... Start Date: 09/24/22 Status: Ordered brimonidine 0.2% ophthalmic solution See Instructions, 1 drops Every 8 hours to right eye, # 15 mL, 0 Refills, Maintenance, 09/24/22 14:22:00 EDT, Ophth Solution, [facility], Partial fill upon patient request if the prescription is for a schedule II opioid drug., 1 drops Ev... Start Date: 09/24/22 Status: Ordered carvedilol 3.125 mg oral tablet 3.125 mg, 1, tablet, By Mouth, 2 times a day, # 60 tablet, Refills 0, Tot. Refills 0, Maintenance, 09/24/22 14:22:00 EDT, Route to Pharmacy Electronically, [facility], Partial fill uponpatient request if the prescription is for a schedu... Start Date: 09/24/22 Status: Ordered duloxetine 30 mg oral enteric coated capsule 1 capsule = 30 mg, By Mouth, 2 times a day, # 60 capsule, 0 Refills, Maintenance, 09/24/22 16:47:00EDT, Capsule, [facility], Partial fill upon patient request if the prescription is for a schedule II opioid drug., 170.7, cm, 09/23/22 22... Start Date: 09/24/22 Status: Ordered Entresto 24 mg-26 mg oral tablet 1 tablet, By Mouth, 2 times a day, # 60 tablet, 0 Refills, Maintenance, 09/24/22 14:23:00 EDT, Tablet, [facility], Partial fill upon patient request if the prescription is for a schedule II opioid drug., 1 tablet By Mouth 2 times a day,... Start Date: 09/24/22 Status: Ordered escitalopram 10 mg oral tablet 2 tablet = 20 mg, By Mouth, Daily, # 60 tablet, 0 Refills, Maintenance, 09/24/22 16:46:00 EDT, Tablet, [facility], Partial fill upon patient [...] Acute 10/03/22 16:30:00 EDT, 09/27/22 14:28:00 EDT, [facility], Partial fill upon patient request if the prescript... Start Date: 09/27/22 Stop Date: 10/03/22 Status: Ordered metFORMIN 1000 mg oral tablet 1 tablet = 1,000 mg, By Mouth, Daily before breakfast, # 30 tablet, 0 Refills, Maintenance, 09/24/22 16:46:00 EDT, Tablet, [facility], Partial fill upon patient request if the prescription is for a schedule II opioid drug., 170.7, cm, 06... Start Date: 09/24/22 Status: Ordered midodrine 5 mg oral tablet 5 mg, 1, tablet, By Mouth, 3 times a day, # 90 tablet, Refills 0, Tot. Refills 0, Maintenance, 09/24/22 14:23:00 EDT, Route to Pharmacy Electronically, [facility], Partial fill upon patient request if the prescription is for a schedule I... Start Date: 09/24/22 Status: Ordered topiramate 100 mg oral tablet 1 tablet = 100 mg, By Mouth, 2 times a day, # 60 tablet, 0 Refills, Maintenance, 09/24/22 16:46:00 EDT, Tablet, [facility], Partial fill upon patient request if [...] 1 Refills, Maintenance, 07/23/22 11:24:00 EDT, Tablet, [facility] #[id number], Partial fill upon patient request if the prescription is for a schedule I... Start Date: 07/23/22 Status: Ordered warfarin 5 mg oral tablet 2-3 tablets, By Mouth, Daily, TAKE 2 TO 3 TABLETS PO DAILY DIRECTED BY [facility], # 90 tablet, 9 Refills, Maintenance, 09/25/22 11:40:00 EDT, [facility], Partial fill upon patient request if the prescription is for a schedule II... Start Date: 09/25/22 Status: Ordered warfarin 5 mg oral tablet See Instructions, Take 1 to 2 and 1/2 tablets by mouth daily as directed by the [facility], # 30 tablet, 4 Refills, Maintenance, 04/20/22 15:25:00 EST, Tablet, [facility], Partial fill upon [...] recent to oldest [Reference Range]: 1 Height 170 cm (04/04/22 10:58 AM) Weight 103.8 kg (04/04/22 10:58 AM) Pulse Rate [55-90 bpm] 65 bpm (04/04/22 10:58 AM) Body Mass Index [18.5-24.99 kg/m2] 35.92 kg/m2 *>HHI* (04/04/22 10:58 AM) Blood Pressure [90-138/55-84 mm Hg] 151/ 96mm Hg *H* (04/04/22 10:58 AM) Temperature [96.8-100.4 DegF] 97.4 DegF (04/04/22 10:58 AM) Blood pressure sites Arm, left (04/04/22 10:58 AM) Temperature Route Oral (04/04/22 10:58 AM) Dry Weight 103.8 kg (04/04/22 10:58 AM) Weight Obtained Via Standing scale (04/04/22 10:58 AM) Dry Weight Obtained Via Standing scale (04/04/22 10:58 AM) Social History Social History Type Response Smoking Status Never (less than 100 in lifetime) entered on: 02/14/22 Sex Note * Lalo Martinez MA: PERFORM, SIGN, VERIFY Event Display: Patient Education/Instruction Authored Date: [id number] [employer] *Heme/Onc Adult Clinical Summary Name MONSTER TAMAYO Age 51 Years 1970 PCP Brandin Valdez MD PCP Visit Date 01/05/2022 14:55:00 Additional Instructions: Scheduled Appointments?? Future Appointments ?*[facility]??Neurology ?[address] ?[place],??[place],??[address] ?Phone:??--?Fax:??-- ?Appt. Date:??04/10/2022?9:30 AM ?Scheduled Provider:??Lisa GONZALEZ , Lexa Follow-Up Instructions ?? With: Address: When: Gerry COLLADO, [address] [facility] Business (1) 10/03/2022 9:00 AM Diagnosis Medications: Please continue your medications until treatment is completed or stopped by your provider. Discuss any questions related to medications with your provider. Medications to Continue Taking That Have Changed These medications were not printed or sent to your pharmacy - HydrOXYzine (hydrOXYzine hydrochloride 25 mg oral tablet) 1 tab(s) Oral Daily at Bedtime as needed for anxiety. Next Dose: - Insulin Glargine (Insulin Glargine Inj) 10 unit(s) Subcutaneous Injection Daily. Next Dose: - Lorazepam (LORazepam 0.5 mg oral tablet) 1 tab(s) Oral Daily at Bedtime as needed as needed for anxiety. (filled 01/25/22 14 tabs still has some). Next Dose: - Metformin (metFORMIN 1000 mg oral tablet) 1 tab(s) Oral Daily before breakfast. Next Dose: - Topiramate (topiramate 100 mg oral tablet) 1 tab(s) Oral twice a day. Next Dose: Medications to Continue with No Changes These medications were not printed or sent to your pharmacy Atorvastatin (atorvastatin 40 mg oral tablet) 1 tab(s) Oral Daily. Next Dose: Durable Medical Equipment (Blood Pressure Monitor) check blood pressure 3 times a week or anytime when you don't feel well. keep a log book. Refills: 0. Next Dose: Escitalopram (escitalopram 10 mg oral tablet) 1 tab(s) Oral Daily. Next Dose: Fluticasone Nasal (fluticasone 50 mcg/inh nasal spray) 1 spray(s) Nares, Both Daily as needed SinusSymptoms. Next Dose: Insulin Aspart (Insulin Aspart FlexPen 100 units/mL injectable solution) INJECT MAX OF 14 UNITS SUBCUTANEOUSLY PER SLIDING SCALE THREE TIMES A DAY. Next Dose: Losartan (losartan 25 mg oral tablet) 2 tab(s) Oral Daily. Refills: 0. Next Dose: Multivitamin (Daily Vin oral tablet) 1 tab(s) Oral Daily. Next Dose: Warfarin (warfarin 3 mg oral tablet) 3 tab(s) Oral Daily for 30 Days. dose to be adjusted as recommended by anticoagulation clinic. Refills: 0. Next Dose: Warfarin (warfarin 5 mg oral tablet) Take 1 to 2 and 1/2 tablets by mouth daily as directed by the Coumadin Clinic. Refills: 4. Next Dose: No Longer Take the Following Medications Ammonium Lactate 12% (ammonium lactate 12% topical lotion) APPLY TO SOLES OF FEET DAILY. AT NIGHT WEAR SOCKS TO BED. Carvedilol (carvedilol 25 mg oral tablet) 1 tab(s) Oral twice a day. Enoxaparin (enoxaparin 120 mg/0.8 mL injectable solution) 0.8 Milliliter Subcutaneous Injection twice a day for 21 Days. Refills: 0. Furosemide (furosemide 40 mg oral tablet) 1 tab(s) Oral Daily. hydrALAZINE (hydrALAZINE 100 mg oral tablet) 1 tab(s) Oral 3 times a day. with food. Allergy Info:?? vancomycin Medications Given This Visit Future Orders ?CBC w/ Differential? Order Date:04/04/22?- Complete by?04/04/22 ?Ferritin? Order Date:04/04/22?- Complete on or after?04/04/22 ?Iron + Iron Binding Capacity? Order Date:04/04/22?- Complete on or after?04/04/22 ?Ferritin? Order Date:10/03/22?- Complete by?10/31/22 ?Iron + Iron Binding Capacity? Order Date:10/03/22?- Complete by?10/31/22 ?CBC w/ Differential? Order Date:10/03/22?- Complete by?10/31/22 Vital Signs Height 170 cm Weight 103.8 kg BMI 35.92 kg/m2 Blood Pressure 151 mm Hg/96 mm Hg Temperature 97.4 DegF Pulse Rate 65 bpm Respiratory Rate 02 Sat Mode of Delivery / You can now view a summary of your hospital visit from the comfort of your home through a free online portal called [employer]. [employer] is a website that allows you to securely view your medical information including discharge summary, medications and follow-up visits. ??You can alsosend a secure electronic message to your doctor???s office to request appointments, renew medications or just ask a question. You can enroll at [email or web address] or register during your next office visit. Disclaimer:?? The information provided is of a general nature and is intended to be used in conjunction with the recommendations and advice of your health care practitioner. ??Every effort has been made to ensure that the information provided is accurate and complete at the time it is provided to you however, as your needs change, or, as new ??information becomes available, different or additional instructions may be required. If you have questions, please consult with your primary care provider or pharmacist, as appropriate. ??This information is not intended to serve as substitution for assessment and evaluation by a qualified health care provider. If you do not have a primary care provider, you may find a [facility] provider by calling [facility] [employer] at [phone]. For information about the plan of care including goals and instructions for your diagnosis, please see the patient education orders section of this document. Patient Education Materials?? The content of this educational material or handout may have been modified, supplemented, or adapted from its original content and format to support your individualized medical care. Patient Care team information Care Team Personnel Name: Rylie Dodson Position: [facility] RN Member Role: Primary Care Nurse Name: Oziel Tapia RN Position: [facility] RN Member Role: Primary Care Nurse Name: Aria Patel RN Position: [facility] AMB Nurse Member Role: Primary Care Nurse Name: Summer Donis Position: [facility] RN Member Role: Primary Care Nurse Name: Albert Hernandez RN Position: [facility] RN Member Role: Primary Care Nurse Name: Yaneth Gray RN Position: [facility] SN RN Member Role: Primary Care Nurse Name: Sagrario Eden Position: [facility] RN Member Role: Primary Care Nurse Name: Brandin Valdez MD Position: [facility] Physician - Primary Care Member Role: PCP Address: Address: [address] [place] [id number]- Name: Taras Yuen RN Position: [facility] RN Member Role: Primary Care Nurse Name: Maricarmen Meraz RN Position: [facility] RN Member Role: Primary Care Nurse Name: Aditi Clifton RN Position: [facility] RN Member Role: Primary Care Nurse Name: Mary Fisher Position: [facility] RN Member Role: Primary Care Nurse Name: Andres Carrero RN Position: [facility] RN Member Role: Primary Care Nurse Name: Fatemeh Saldaña PharmD Position: [facility] Associate Professional Member Role: Lifetime Consulting Provider Address: Address: [address] [place] [id number]- [place] Name: Fatemeh Hernandez Position: S Outreach Member Role: Lifetime Consulting Physician Name: Katt Márquez RN Position: [facility] RN Member Role: Primary Care Nurse Name: Nabeel Agarwal MD Position: [facility] Renal MD Member Role: Lifetime Consulting Physician Address: Address: [address] [facility] [address] [facility] [place] [address]- [place] Name: Michaela Funes RN Position: [facility] RN Member Role: Primary Care Nurse Name: Susy Jose RN Position: [facility] RN Member Role: Primary Care Nurse Name: Brandon Stevens MD Position: [facility] Renal MD Member Role: Lifetime Consulting Physician Address: Address: [address] [place] [address] [facility] [place], [place] [address] Name: Arabella Mcghee Position: [facility] Outreach Member Role: Lifetime Consulting Physician Name: Tangela Segovia LPN Position: [facility] RN Member Role: Primary Care Nurse Care Team Related Persons Name: HANS TAMAYO Address: [address] [place] [address] Name: CHATO PARKS Address: [address] [place] [address]
--- OUTSIDE RECORDS SUMMARY | 2023-02-07 20:14 | XMS_ITS | Continuity of Care Document ---
Author Name Unknown Organization [facility] Address [address] [place] [phone]- Care Team Providers Care Fire Equipment Operator Name Role Phone Brandin Valdez MD Primary Care Physician Encounter [facility] [place] Date(s): 09/20/22 - 10/20/[address] [address] Attending Physician: Not on Staff, Attending MD Admitting Physician: Not on Staff, Admitting MD Referring Physician: Not on Staff, Referring [...] 09/24/22 16:47:00 EDT, Route to Pharmacy Electronically, [facility], Partial fill upon patient request if the prescription is for a schedule II opioi... Start Date: 09/24/22 Status: Ordered atorvastatin 10 mg oral tablet 1 tablet = 10 mg, By Mouth, Daily, # 30 tablet, 0 Refills, Maintenance, 09/24/22 14:23:00 EDT, Tablet, [facility], Partial fill upon patient request if the prescription is for a schedule II opioid drug., 170.7, cm, 09/23/22 22:36:00 EDT,... Start Date: 09/24/22 Status: Ordered brimonidine 0.2% ophthalmic solution See Instructions, 1 drops Every 8 hours to right eye, # 15 mL, 0 Refills, Maintenance, 09/24/22 14:22:00 EDT, Ophth Solution, [facility], Partial fill upon patient request if the prescription is for a schedule II opioid drug., 1 drops Ev... Start Date: 09/24/22 Status: Ordered carvedilol 3.125 mg oral tablet 3.125 mg, 1, tablet, By Mouth, 2 times a day, # 60 tablet, Refills 0, Tot. Refills 0, Maintenance, 09/24/22 14:22:00 EDT, Route to Pharmacy Electronically, [facility], Partial fill uponpatient request if the [...] 0 Refills, Maintenance, 09/24/22 16:46:00 EDT, Tablet, [facility], [...] 0 Refills, Maintenance, 09/24/22 16:46:00 EDT, Tablet, [facility], Partial fill upon patient request if the prescription is for a schedule II opioid drug., 170.7, cm, 06... Start Date: 09/24/22 Status: Ordered midodrine 5 mg oral tablet 5 mg, 1, tablet, By Mouth, 3 times a day, # 90 tablet, Refills 0, Tot. Refills 0, Maintenance, 09/24/22 14:23:00 EDT, Route to Pharmacy Electronically, [facility], Partial fill upon patient request if the prescription is for a schedule I... Start Date: 09/24/22 Status: Ordered topiramate 100 mg oral tablet 1 tablet = 100 mg, By Mouth, 2 times a day, # 60 tablet, 0 Refills, Maintenance, 09/24/22 16:46:00 EDT, Tablet, [facility], Partial fill upon patient [...] 1 Refills, Maintenance, 07/23/22 11:24:00 EDT, Tablet, [id number], Partial fill upon patient request if the prescription is for a schedule I... Start Date: 07/23/22 Status: Ordered warfarin 5 mg oral tablet 2-3 tablets, By Mouth, Daily, TAKE 2 TO 3 TABLETS PO DAILY DIRECTED BY [facility], # 90 tablet, 9 Refills, Maintenance, 09/25/22 11:40:00 EDT, [facility], Partial fill upon patient request if the prescription is for a schedule II... Start Date: 09/25/22 Status: Ordered warfarin 5 mg oral tablet See Instructions, Take 1 to 2 and 1/2 tablets by mouth daily as directed by the [facility], # 30 tablet, 4 Refills, Maintenance, 04/20/22 15:25:00 EST, Tablet, [facility], Partial fill upon patient [...] Care Team Personnel Name: Rylie Dodson Position: [facility] RN Member Role: Primary Care Nurse Name: Oziel Tapia RN Position: [facility] RN Member Role: Primary Care Nurse Name: Aria Patel RN Position: [facility] AMB Nurse Member Role: Primary Care Nurse Name: Summer Donis Position: [facility] RN Member Role: Primary Care Nurse Name: Albert Hernandez RN Position: [facility] RN Member Role: Primary Care Nurse Name: Yaneth Gray RN Position: [facility] SN RN Member Role: Primary Care Nurse Name: Sagrario Eden Position: [facility] RN Member Role: Primary Care Nurse Name: Brandin Valdez MD Position: [facility] Physician - Primary Care Member Role: PCP Address: Address: [address] [place] [address] Name: Taras Yuen RN Position: S RN Member Role: Primary Care Nurse Name: Maricarmen Meraz RN Position: S RN Member Role: Primary Care Nurse Name: Aditi Clifton RN Position: S RN Member Role: Primary Care Nurse Name: Mary Fisher Position: S RN Member Role: Primary Care Nurse Name: Fatemeh Saldaña PharmD Position: [facility] Associate Professional Member Role: Lifetime Consulting Provider Address: Address: [address] [place] [address]- Name: Fatemeh Hernandez Position: [facility] Outreach Member Role: Lifetime Consulting Physician Name: Katt Márquez RN Position: [facility] RN Member Role: Primary Care Nurse Name: Nabeel Agarwal MD Position: [facility] Renal MD Member Role: Lifetime Consulting Physician Address: Address: [address] [place] [address] [address] [facility] [place] [address]- Name: Michaela Funes RN Position: [facility] RN Member Role: Primary Care Nurse Name: Susy Jose RN Position: [facility] RN Member Role: Primary Care Nurse Name: Brandon Stevens MD Position: [facility] Renal MD Member Role: Lifetime Consulting Physician Address: Address: [address] [facility] [place] [address]- Name: Arabella Mcghee Position: [facility] Outreach Member Role: Lifetime Consulting Physician Name: Tangela Segovia LPN Position: [facility] RN Member Role: Primary Care Nurse Care Team Related Persons Name: RONI HANS Address: [address] [place] [address] Name: CHATO PARKS Address: [address] [place] [address]
--- OUTSIDE RECORDS SUMMARY | 2023-02-07 20:14 | XMS_ITS | Continuity of Care Document ---
Author Name Unknown Organization [facility] ter Address [address] [place] [id number]- Care Team Providers Care Tip Fixer Name Role Phone Brandin Valdez MD Primary Care Physician Encounter [facility] Date(s): 09/25/22 - 09/26/[address] [address]- Encounter Diagnosis Leg pain(Final) - 09/26/22 Discharge Disposition: A-D/C Home Attending Physician: Ashley Lee MD Admitting Physician: Ashley Lee MD Referring Physician: Not on Staff, Referring [...] 09/24/22 16:47:00 EDT, Route to Pharmacy Electronically, [facility], Partial fill upon patient request if the prescription is for a schedule II opioi... Start Date: 09/24/22 Status: Ordered atorvastatin 10 mg oral tablet 1 tablet = 10 mg, By Mouth, Daily, # 30 tablet, 0 Refills, Maintenance, 09/24/22 14:23:00 EDT, Tablet, [facility], Partial fill upon patient request if the prescription is for a schedule II opioid drug., 170.7, cm, 09/23/22 22:36:00 EDT,... Start Date: 09/24/22 Status: Ordered brimonidine 0.2% ophthalmic solution See Instructions, 1 drops Every 8 hours to right eye, # 15 mL, 0 Refills, Maintenance, 09/24/22 14:22:00 EDT, Ophth Solution, [facility], Partial fill upon patient request if the prescription is for a schedule II opioid drug., 1 drops Ev... Start Date: 09/24/22 Status: Ordered carvedilol 3.125 mg oral tablet 3.125 mg, 1, tablet, By Mouth, 2 times a day, # 60 tablet, Refills 0, Tot. Refills 0, Maintenance, 09/24/22 14:22:00 EDT, Route to Pharmacy Electronically, [facility], Partial fill uponpatient request if the prescription is for a schedu... Start Date: 09/24/22 Status: Ordered duloxetine 30 mg oral enteric coated capsule 1 capsule = 30 mg, By Mouth, 2 times a day, # 60 capsule, 0 Refills, Maintenance, 09/24/22 16:47:00EDT, Capsule, [facility], Partial fill upon patient request if the prescription is for a schedule II opioid drug., 170.7, cm, 09/23/22 22... Start Date: 09/24/22 Status: Ordered Entresto 24 mg-26 mg oral tablet 1 tablet, By Mouth, 2 times a day, # 60 tablet, 0 Refills, Maintenance, 09/24/22 14:23:00 EDT, Tablet, [facility], Partial fill upon patient request if the prescription is for a schedule II opioid drug., 1 tablet By Mouth 2 times a day,... Start Date: 09/24/22 Status: Ordered escitalopram 10 mg oral tablet 2 tablet = 20 mg, By Mouth, Daily, # 60 tablet, 0 Refills, Maintenance, 09/24/22 16:46:00 EDT, Tablet, [facility], Partial fill upon patient [...] Acute 10/03/22 16:30:00 EDT, 09/27/22 14:28:00 EDT, [facility], Partial fill upon patient request if the prescript... Start Date: 09/27/22 Stop Date: 10/03/22 Status: Ordered metFORMIN 1000 mg oral tablet 1 tablet = 1,000 mg, By Mouth, Daily before breakfast, # 30 tablet, 0 Refills, Maintenance, 09/24/22 16:46:00 EDT, Tablet, [facility], Partial fill upon patient request if the prescription is for a schedule II opioid drug., 170.7, cm, 06... Start Date: 09/24/22 Status: Ordered midodrine 5 mg oral tablet 5 mg, 1, tablet, By Mouth, 3 times a day, # 90 tablet, Refills 0, Tot. Refills 0, Maintenance, 09/24/22 14:23:00 EDT, Route to Pharmacy Electronically, [facility], Partial fill upon patient request if the prescription is for a schedule I... Start Date: 09/24/22 Status: Ordered topiramate 100 mg oral tablet 1 tablet = 100 mg, By Mouth, 2 times a day, # 60 tablet, 0 Refills, Maintenance, 09/24/22 16:46:00 EDT, Tablet, [facility], Partial fill upon patient request if [...] 1 Refills, Maintenance, 07/23/22 11:24:00 EDT, Tablet, [facility]acy #[id number], Partial fill upon patient request if the prescription is for a schedule I... Start Date: 07/23/22 Status: Ordered warfarin 5 mg oral tablet 2-3 tablets, By Mouth, Daily, TAKE 2 TO 3 TABLETS PO DAILY DIRECTED BY [facility], # 90 tablet, 9 Refills, Maintenance, 09/25/22 11:40:00 EDT, [facility], Partial fill upon patient request if the prescription is for a schedule II... Start Date: 09/25/22 Status: Ordered warfarin 5 mg oral tablet See Instructions, Take 1 to 2 and 1/2 tablets by mouth daily as directed by the [facility], # 30 tablet, 4 Refills, Maintenance, 04/20/22 15:25:00 EST, Tablet, [facility], Partial fill upon patient [...] Exam Date Time Procedure Performing Provider Status 09/26/22 5:59 AM US Doppler Ext Lower Venous Right Deangelo Worley; Auth (Verified) Notes: (US Doppler Ext Lower Venous Right) Reason For Exam: Pain in limb;Other: RESULT: US Doppler Ext Lower Venous Right US Doppler Ext Lower Venous Right Hx of Present Illness: R foot burning; Reason: Pain in limb; Clinical Question(s): Thrombus COMPARISON: 08/26/2022 IMAGING TECHNIQUE: Ultrasound of the veins from the groin through the calf was performed using grayscale, color, and spectral Doppler ultrasound assessing for complete compressibility and normal flowcharacteristics. FINDINGS: Common femoral vein: Patent. No thrombosis. Femoral vein: Patent. No thrombosis. Popliteal vein: Patent. No thrombosis. Gastrocnemius veins: The visualized portions are patent without evidence of thrombosis. Peroneal veins: The visualized portions are patent without evidence of thrombosis. Posterior tibial veins: The visualized portions are patent without evidence of thrombosis. Contralateral common femoral vein: Patent. No thrombosis. IMPRESSION: No evidence of deep venous thrombosis. Results were relayed by [employer] by Dr. Chaparro to Carolina Hernandez MD on 09/26/2022 at 6:47 AM. I have personally reviewed the images and I agree with this report. WSN: [id number] Ordering Physician: Carolina Hernandez Dictated By: Huang Chaparro MD Dictated Date/Time: 09/26/22 7:35 am Reviewed By: Ashish Jackman MD Signed By: Ashish Jackman MD Signed Date/Time: 09/26/22 7:40 am Transcribed By: ROBERT Transcribed Date/Time: 09/26/22 6:48 am Vital Signs Most recent to oldest [Reference Range]: 1 2 3 Height 168 cm (09/25/22 10:36 PM) 168 cm (09/25/22 8:35 PM) Weight 95.5 kg (09/25/22 10:36 PM) Oxygen Saturation [94-100 %] 100 % (09/26/22 9:15 AM) 100 % (09/26/22 6:30 AM) 100 % (09/26/22 2:42 AM) Pulse Rate [55-90 bpm] 75 bpm (09/26/22 9:15 AM) 82 bpm (09/26/22 6:30 AM) 80 bpm (09/26/22 2:42 AM) Blood Pressure [90-138/55-84 mm Hg] 147/92mm Hg *H* (09/26/22 9:15 AM) 113/81mm Hg (09/26/22 6:30 AM) 131/79mm Hg (09/26/22 2:42 AM) Temperature [96.8-100.4 DegF] 97.9 DegF (09/26/22 9:15 AM) 97.9 DegF (09/26/22 6:30 AM) 97.5 DegF (09/26/22 2:42 AM) Mode of Delivery (Oxygen) Room air (09/26/22 9:15 AM) Room air (09/26/22 6:30 AM) Room air (09/26/22 2:42 AM) Blood pressure sites Arm, left (09/26/22 9:15 AM) Arm, left (09/25/22 11:25 PM) Arm, left (09/25/22 8:35 PM) Temperature Route Oral (09/26/22 9:15 AM) Oral (09/26/22 6:30 AM) Oral (09/26/22 2:42 AM) Dry Weight 95.5 kg (09/25/22 10:36 PM) 95.5 kg (09/25/22 8:35 PM) Dry Weight Obtained Via Patient/family s tated (09/25/22 8:35 PM) Social History Social History Type Response Smoking Status Never (less than 100 in lifetime) entered on: 02/14/22 Sex Patient Care team information Care Team Personnel Name: Rylie Dodson Position: [facility] RN Member Role: Primary Care Nurse Name: Oziel Tapia RN Position: [facility] RN Member Role: Primary Care Nurse Name: Aria Patel RN Position: [facility] AMB Nurse Member Role: Primary Care Nurse Name: Summer Donis Position: [facility] RN Member Role: Primary Care Nurse Name: Albert Hernandez RN Position: [facility] RN Member Role: Primary Care Nurse Name: Yaneth Gray RN Position: [facility] SN RN Member Role: Primary Care Nurse Name: Sagrario Eden Position: [facility] RN Member Role: Primary Care Nurse Name: Brandin Valdez MD Position: [facility] Physician - Primary Care Member Role: PCP Address: Address: [address] [place] [address] Name: Taras Yuen RN Position: S RN Member Role: Primary Care Nurse Name: Maricarmen Meraz RN Position: [facility] RN Member Role: Primary Care Nurse Name: Aditi Clifton RN Position: [facility] RN Member Role: Primary Care Nurse Name: Mary Fisher Position: S RN Member Role: Primary Care Nurse Name: Andres Carrero RN Position: [facility] RN Member Role: Primary Care Nurse Name: Fatemeh Saldaña PharmD Position: [facility] Associate Professional Member Role: Lifetime Consulting Provider Address: Address: [address] [facility] [place] [address]- Name: Fatemeh Hernandez Position: [facility] Outreach Member Role: Lifetime Consulting Physician Name: Katt Márquez RN Position: [facility] RN Member Role: Primary Care Nurse Name: Nabeel Agarwal MD Position: [facility] Renal MD Member Role: Lifetime Consulting Physician Address: Address: [address] [place] [address] [address] [facility], [place] [address]- Name: Michaela Funes RN Position: [facility] RN Member Role: Primary Care Nurse Name: Susy Jose RN Position: [facility] RN Member Role: Primary Care Nurse Name: Brandon Stevens MD Position: [facility] Renal MD Member Role: Lifetime Consulting Physician Address: Address: [address] [place] [address] [facility] [place] [address]- Name: Arabella Mcghee Position: [facility] Outreach Member Role: Lifetime Consulting Physician Name: Tangela Segovia LPN Position: [facility] RN Member Role: Primary Care Nurse Name: Ashley Lee MD Position: [facility] Resident Member Role: Admitting Physician Address: Address: [address] [place] [address] [place] [address]- Care Team Related Persons Name: HANS TAMAYO Address: home [address] [place] [address] Name: CHATO PARKS Address: home [address] [place] [address]
--- OUTSIDE RECORDS SUMMARY | 2023-02-07 20:14 | XMS_ITS | Continuity of Care Document ---
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 Date(s): 06/24/22 - 06/24/[address] [address]- Encounter Diagnosis Urinary tract infection(Final) - 06/24/22 Discharge Disposition: A-D/C Home Attending Physician: Ez Obrien MD Admitting Physician: Ez Obrien MD Referring Physician: Not on Staff, Referring [...] 07/04/22 12:54:00 EDT, 06/24/22 12:54:00 EDT, Tablet, [facility] #[id number], Partial fill [...] 02/18/22 7:13:00 EST, Route to Pharmacy Electronically, [facility], Partial fill upon patient request if [...] 0 Refills, Maintenance, 04/20/22 15:26:00 EST, Tablet, [facility], Partial fill upon patient request if the prescription is for... Start Date: 04/20/22 Stop Date: 05/20/22 Status: Ordered warfarin 5 mg oral tablet See Instructions, Take 1 to 2.5 tablets by mouth daily as directed by the [facility], # 225 tablet, 1 Refills, Maintenance, 04/13/22 17:25:00 EST, Tablet, [facility]acy #1130, Partial fill upon patient request if the prescription is for a schedule... Start Date: 04/13/22 Status: Ordered warfarin 5 mg oral tablet See Instructions, Take 1 to 2 and 1/2 tablets by mouth daily as directed by the [facility], # 30 tablet, 4 Refills, Maintenance, 04/20/22 15:25:00 EST, Tablet, [facility], Partial fill upon patient request if the prescription is for... Start Date: 04/20/22 Status: Ordered Problem List Condition Confirmation Course Effective Dates Status Health [facility] Informant COVID-19 1 Confirmed 05/11/22 Active Obese class II Confirmed Active Tubular adenoma of colon 2 Confirmed 01/18/22 Active 1Problem added by Discern Expert 2repeat screening colonoscopy in 2028 Results Orders for Microbiology Reports Name Date Urine Culture (URINE CULTURE) 06/24/22 Microbiology Reports TEST:Urine Culture STATUS:Unauthenticated BODY SITE: SOURCE:URINE COLLECTED DATE/TIME:06/24/22 9:12 AM Urine Culture SPECIMEN DESCRIPTION : URINE CLEAN CATCH/MIDSTREAM SPECIAL REQUESTS : NONE Reflexed from [id number] REPORT STATUS : PRELIMINARY REPORT Vital Signs Most recent to oldest [Reference Range]: 1 2 3 Oxygen Saturation [94-100 %] 95 % (06/24/22 1:02 PM) 97 % (06/24/22 10:16 AM) 100 % (06/24/22 9:01 AM) Pulse Rate [55-90 bpm] 88 bpm (06/24/22 1:02 PM) 94 bpm *H* (06/24/22 10:16 AM) 130 bpm *H* (06/24/22 9:01 AM) Blood Pressure [90-138/55-84 mm Hg] 154/87mm Hg *H* (06/24/22 1:02 PM) 138/86mm Hg (06/24/22 10:16 AM) Respiratory Rate [16-30 br/min] 18 br/min (06/24/22 1:02 PM) 18 br/min (06/24/22 10:16 AM) 18 br/min (06/24/22 9:01 AM) Temperature [96.8-100.4 DegF] 98.1 DegF (06/24/22 10:16 AM) Mode of Delivery (Oxygen) Room air (06/24/22 1:02 PM) Room air (06/24/22 10:16 AM) Room air (06/24/22 9:01 AM) Blood pressure sites Arm, left (06/24/22 1:02 PM) Temperature Route Oral (06/24/22 10:16 AM) Social History Social History Type Response Smoking Status Never (less than 100 in lifetime) entered on: 02/14/22 Sex Note * Teresa CAPPS, Brandon: PERFORM Event Display: Patient Education Leaflets Authored Date: [id number] Bladder Infection,??Male (Adult) ?? [id number] Bladder Infection,??Male (Adult) You have a bladder infection. Pee (urine) is normally free of bacteria. But bacteria can get into the urinary tract from the skinaround the rectum. Or it may travel in the blood from other parts of the body. This is called a urinary tract infection (UTI). An infection can occur anywhere in the urinary tract. It could be in a kidney (pyelonephritis) or in the bladder (cystitis) and urethra (urethritis). The urethra is the tube that drains pee from the bladder through the tip of the penis. The most common place for a UTI is in the bladder. This is called a bladder infection. Most bladderinfections are easily treated. They aren't serious unless the infection spreads up to the kidney. The terms bladder infection, UTI, and cystitis are often used to describe the same thing. But they aren???t always the same. Cystitis is an inflammation of the bladder. The most common cause of cystitis is an infection.?? Keep in mind: ??? Infections in pee are called UTIs. ??? Cystitis is often caused by a UTI. ??? Not all UTIs and cases of cystitis are bladder infections. ??? Bladder infections are the most common type of cystitis. Symptoms of a bladder infection The infection causes inflammation in the urethra and bladder. This inflammation causes many of the symptoms. The most common symptoms of a bladder infection are: ??? Pain or burning feeling when peeing ??? Having to go more often than normal ??? Feeling like you need to go??right away ??? Only a small amount of pee comes out ??? Blood in your pee ??? Discomfort in your belly (abdomen), often in the lower belly, above the pubic bone ??? Cloudy, strong, or bad-smelling pee ??? Unable to pee (urinary retention) ??? Urinary incontinence ??? Fever ??? Loss of appetite Older adults may also feel confused. ?? Causes of a bladder infection Bladder infections aren't contagious. You can't get one from someone else, from a toilet seat, or from sharing a bath. The most common cause of bladder infections is bacteria from the bowels. The bacteria get onto the skin around the opening of the urethra. From there they can get into the pee and travel up to the bladder. This causes inflammation and an infection. This often happens because of: ??? An enlarged prostate ??? Poor cleaning of the genitals ??? Procedures that put a tube in your bladder, such as a El catheter ??? Bowel incontinence ??? Older age ??? Not emptying your bladder (the pee stays there, giving the bacteria a chance to grow) ??? Dehydration (this lets pee stay in the bladder longer) ??? Constipation (this can cause the bowels to push on the bladder or urethra and keep the bladder from emptying) ?? Treatment Bladder infections are treated with antibiotics. They often clear up quickly without complications.Treatment helps prevent a more serious kidney infection. Medicines Medicines can help in treating a bladder infection: ??? You may have been given phenazopyridine to ease burning when you pee. It will cause your pee denita bright orange. It can stain clothing. ??? You may have been prescribed antibiotics. Take this medicine until you have finished it, even if you feel better. Taking all of the medicine will make sure the infection has cleared. You can use acetaminophen or ibuprofen for pain,??fever, or discomfort, unless another medicine wasprescribed. You can also alternate them. Or you can use both together. They work differently and are a different class of medicines, so taking them together is not an overdose.??If you have chronic liver or kidney disease, talk with your healthcare provider before using these medicines. Also talk with your provider if you???ve had a stomach ulcer or GI (gastrointestinal) bleeding or are taking blood thinner medicines. ?? Home care Here are some guidelines to help you care for yourself at home: ??? Drink plenty of fluids, unless your healthcare provider told you not to. Fluids will prevent dehydration and flush out your bladder. ??? Use good personal hygiene. Wipe from front to back after using the toilet, and clean your penis regularly. If you aren???t circumcised, retract the foreskin when cleaning. ??? Pee more often. Don???t try to hold it in for long periods of time, if possible. ??? Wear loose- fitting clothes and cotton underwear. Don't wear tight-fitting pants. This helps keep you clean and dry. ??? Change your diet to prevent constipation. This means eating more fresh foods and more fiber, and less junk and fatty foods. ??? Don't have sex until your symptoms are gone. ??? Don't have caffeine, alcohol, and spi cy foods. These can irritate the bladder. ?? Follow-up care Follow up with your healthcare provider, or as advised, if all symptoms haven't cleared up in 5 days. It's important to keep your follow-up appointment. You can talk with your provider to see if you need more tests of the urinary tract.??This is especially important if you have infections that keepcoming back. If a culture was done, you'll be told if your treatment needs to be changed. If directed, you can call??to find out the results. If X-rays were taken, you'll be told of any findings that may affect your care. ?? Call 911 Call 911 if any of these occur: ??? Trouble breathing ??? Trouble waking up ??? Feeling confused ??? Fainting or loss of consciousness ??? Fast heart rate ?? When to get medical advice Call your healthcare provider right away??if any of these occur: ??? Fever of 100.4??F (38??C) or higher, or as advised by your provider ??? Your symptoms don???t improve after 2 days of treatment ??? Back or belly pain that gets worse ??? Repeated vomiting, or you aren???t able to keep medicine down ??? Weakness or dizziness ?? Last Reviewed Date: 2021 ?? [employer]. All rights reserved. This information is not intended as a substitute for professional medical care. Always follow your healthcare professional's instructions. ?? Patient Care team information Care Team Personnel Name: Oziel Tapia RN Position: [facility] RN Member Role: Primary Care Nurse Name: Aria Patel RN Position: S AMB Nurse Member Role: Primary Care Nurse Name: Summer Donis Position: [facility] RN Member Role: Primary Care Nurse Name: Yaneth Gray RN Position: [facility] RN Member Role: Primary Care Nurse Name: Sagrario Eden Position: [facility] RN Member Role: Primary Care Nurse Name: Brandin Valdez MD Position: [facility] Physician (General Medicine) Member Role: PCP Address: Address: [address] [place] [phone]- [place] Name: Taras Yuen RN Position: [facility] RN Member Role: Primary Care Nurse Name: Aditi Clifton RN Position: [facility] RN Member Role: Primary Care Nurse Name: Fatemeh Saldaña PharmD Position: [facility] Associate Professional Member Role: Lifetime Consulting Provider Address: Address: [address] [place] [address]- [place] Name: Fatemeh Hernandez Position: [facility] Outreach Member Role: Lifetime Consulting Physician Name: Katt Márquez RN Position: [facility] RN Member Role: Primary Care Nurse Name: Nabeel Agarwal MD Position: [facility] Renal MD Member Role: Lifetime Consulting Physician Address: Address: [address] [facility] [address] [facility] [place], [place] [address]- [place] Name: Michaela Funes RN Position: [facility] RN Member Role: Primary Care Nurse Name: Arabella Mcghee Position: [facility] Outreach Member Role: Lifetime Consulting Physician Name: Tangela Segovia LPN Position: [facility] RN Member Role: Primary Care Nurse Name: Brandon Moore DO Position: [facility] Resident Member Role: ED Resident Address: Address: [address] [place] [address] [place] [address]- [place] Name: Ez Obrien MD Position: [facility] ED Medicine MD Member Role: Admitting Physician Address: Address: [address] [place] [address]- [place] Name: Ya iRvas Position: [facility] ED [facility] Member Role: Director Hematology Name: Peg Whitaker RN Position: [facility] ED RN W/OE and Tasks Member Role: Patient Care Provider Care Team Related Persons Name: RONIHANS Address: [address] [place] [address] Name: CHATO PARKS Address: [address] [address]
--- OUTSIDE RECORDS SUMMARY | 2023-02-07 20:14 | XMS_ITS | Continuity of Care Document ---
Author Name Unknown Organization [facility] Address [address] [facility], [address] Floor, [address] [place] [address]- Care Team Providers Care Display Coordinator Name Role Phone Brandin Valdez MD Primary Care Physician [phone] Encounter [facility] Date(s): 04/26/22 - 05/26/22 [facility] [address], 3[address] Floor, [address] [place] [id number] Attending Physician: Angel Luis Evans Admitting Physician: AdmtrAngel Luis Referring Physician: Admtr ArKodi Allergies, Adverse Reactions, Alerts Substance Reaction Severity [...] 02/18/22 7:13:00 EST, Route to Pharmacy Electronically, [facility], Partial fill upon patient [...] 0 Refills, Maintenance, 04/20/22 15:26:00 EST, Tablet, [facility], Partial fill upon patient [...] 4 Refills, Maintenance, 04/20/22 15:25:00 EST, Tablet, [facility], Partial fill upon patient [...] Team Personnel Name: Oziel Tapia RN Position: [facility] RN Member Role: Primary Care Nurse Name: Aria Patel RN Position: [facility] AMB Nurse Member Role: Primary Care Nurse Name: Summer Donis Position: [facility] RN Member Role: Primary Care Nurse Name: Yaneth Gray RN Position: [facility] RN Member Role: Primary Care Nurse Name: Sagrario Eden Position: [facility] RN Member Role: Primary Care Nurse Name: Brandin Valdez MD Position: [facility] Physician (General Medicine) Member Role: PCP Address: Address: [address] [place] [address]- [place] Name: Taras Yuen RN Position: [facility] RN Member Role: Primary Care Nurse Name: Aditi Clifton RN Position: [facility] RN Member Role: Primary Care Nurse Name: Fatemeh Saldaña PharmD Position: [facility] Associate Professional Member Role: Lifetime Consulting Provider Address: Address: [address] [place] [phone]- [place] Name: Fatemeh Hernandez Position: [facility] Outreach Member Role: Lifetime Consulting Physician Name: Katt Márquez RN Position: [facility] RN Member Role: Primary Care Nurse Name: Nabeel Agarwal MD Position: [facility] Renal MD Member Role: Lifetime Consulting Physician Address: Address: [address] [place] [address] [address] [facility], [place] [address]- [place] Name: Michaela Funes RN Position: [facility] RN Member Role: Primary Care Nurse Name: Arabella Mcghee Position: [facility] Outreach Member Role: Lifetime Consulting Physician Name: Tangela Segovia LPN Position: [facility] RN Member Role: Primary Care Nurse Care Team Related Persons Name: RONIHANS Address: home [address] [place] [address] Name: CHATO PARKS Address: home [address] [place] [address]
--- OUTSIDE RECORDS SUMMARY | 2023-02-07 20:14 | XMS_ITS | Continuity of Care Document ---
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 Encounter Diagnosis SHADIA (acute kidney injury)(Final) - 01/14/22 Diarrhea(Final) - 01/14/22 Discharge Disposition: A-D/C Home Attending Physician: Giovany Carrizales MD Admitting Physician: Wellington Ng MD Referring Physician: Not on Staff, Referring [...] oral tablet 25 mg, Tablet, By Mouth, 01/18/22 9:00:00 EDT Start Date: 01/18/22 Stop Date: 01/18/22 Status: Completed carvedilol 25 mg oral tablet [...] Subcutaneous Injection, 2 times a day, for 5 days, Stop Lovenox once INR >2., #8 mL, 0 Refills, Acute 01/23/22 12:57:00 EDT, 01/18/22 12:57:00 EDT, Injection, [facility]/pharmacy #[id number],Partial fill upon patient request if the prescription... Start Date: 01/18/22 Stop Date: 01/23/22 Status: Ordered escitalopram 10 mg oral tablet [...] oral tablet 100 mg, Tablet, By Mouth, 01/18/22 9:00:00 EDT Start Date: 01/18/22 Stop Date: 01/18/22 Status: Completed hydrOXYzine hydrochloride 25 mg oral [...] 01/18/22 12:57:00 EDT, Route to Pharmacy Electronically, [facility]/pharmacy #[id number], Partialfill upon patient request if the prescription is fo... Start Date: 01/18/22 Status: Ordered topiramate 50 mg oral tablet 1 tablet = 50 mg, By Mouth, 2 times a day Start Date: 01/01/22 Status: Ordered warfarin 5 mg oral tablet 1 tablet = 5 mg, By Mouth, Daily, # 30 tablet, 1 Refills, Maintenance, 01/18/22 12:56:00 EDT, Tablet, [facility]/pharmacy #[id number], Partial fill upon [...] Procedure Date Related Diagnosis Body Site Status Colonoscopy 01/17/22 Completed Esophagogastroduodenoscopy and biopsy 01/17/22 Completed Vital Signs Most recent to oldest [Reference Range]: 1 2 3 Height 168 cm (01/18/22 7:30 AM) 168 cm (01/17/22 1:46 PM) 168 cm (01/17/22 10:34 AM) Weight 123.6 kg (01/17/22 10:34 AM) 123.6 kg (01/15/22 11:00 PM) Oxygen Saturation [94-100 %] 97 % (01/18/22 7:30 AM) 96 % (01/18/22 4:00 AM) 97 % (01/17/22 7:00 PM) Pulse Rate [55-90 bpm] 56 bpm (01/18/22 8:52 AM) 56 bpm (01/18/22 7:30 AM) 84 bpm (01/18/22 4:00 AM) Body Mass Index [18.5-24.99 kg/m2] 43.79 kg/m2 *>HHI* (01/17/22 10:34 AM) 43.79 kg/m2 *>HHI* (01/15/22 11:00 PM) Blood Pressure [90-138/55-84 mm Hg] 179/79mm Hg *H* (01/18/22 8:52 AM) 179/79mm Hg *H* (01/18/22 8:52 AM) 179/79mm Hg *H* (01/18/22 7:30 AM) Respiratory Rate [16-30 br/min] 20 br/min (01/18/22 7:30 AM) 18 br/min (01/18/22 4:00 AM) 18 br/min (01/17/22 10:00 PM) Temperature [96.8-100.4 DegF] 97.9 DegF (01/18/22 7:30 AM) 97.6 DegF (01/18/22 4:00 AM) 98.4 DegF (01/17/22 10:00 PM) Mode of Delivery (Oxygen) Room air (01/18/22 7:30 AM) Room air (01/18/22 4:00 AM) Room air (01/17/22 10:00 PM) Blood pressure sites Arm, right (01/18/22 4:00 AM) Arm, right (01/17/22 10:00 PM) Arm, right (01/17/22 7:00 PM) Temperature Route Oral (01/18/22 7:30 AM) Oral (01/18/22 4:00 AM) Oral (01/17/22 10:00 PM) Dry Weight 123.6 kg (01/15/22 11:00 PM) Patient Care team information Personnel Name: Brandin Valdez MD Address: Address: [address] [place], [place] [address]
--- OUTSIDE RECORDS SUMMARY | 2023-02-07 20:14 | XMS_ITS | Continuity of Care Document ---
Author Name Unknown Organization [facility] Address [address] [facility], [address] Floor, [address] [place] [address]- Care Team Providers Care Glass Sander Belt Name Role Phone Brandin Valdez MD Primary Care Physician [place] [facility] [place]22 [facility] [address], [address], [address] [place] [id number] Allergies, Adverse Reactions, Alerts Substance Reaction [...] 09/24/22 16:47:00 EDT, Route to Pharmacy Electronically, [facility], Partial fill upon patient request if the prescription is for a schedule II opioi... Start Date: 09/24/22 Status: Ordered atorvastatin 10 mg oral tablet 1 tablet = 10 mg, By Mouth, Daily, # 30 tablet, 0 Refills, Maintenance, 09/24/22 14:23:00 EDT, Tablet, [facility], Partial fill upon patient request if the prescription is for a schedule II opioid drug., 170.7, cm, 09/23/22 22:36:00 EDT,... Start Date: 09/24/22 Status: Ordered brimonidine 0.2% ophthalmic solution See Instructions, 1 drops Every 8 hours to right eye, # 15 mL, 0 Refills, Maintenance, 09/24/22 14:22:00 EDT, Ophth Solution, [facility], Partial fill upon patient request if the prescription is for a schedule II opioid drug., 1 drops Ev... Start Date: 09/24/22 Status: Ordered carvedilol 3.125 mg oral tablet 3.125 mg, 1, tablet, By Mouth, 2 times a day, # 60 tablet, Refills 0, Tot. Refills 0, Maintenance, 09/24/22 14:22:00 EDT, Route to Pharmacy Electronically, [facility], Partial fill uponpatient request if the prescription is for a schedu... Start Date: 09/24/22 Status: Ordered duloxetine 30 mg oral enteric coated capsule 1 capsule = 30 mg, By Mouth, 2 times a day, # 60 capsule, 0 Refills, Maintenance, 09/24/22 16:47:00EDT, Capsule, [facility], Partial fill upon patient request if the prescription is for a schedule II opioid drug., 170.7, cm, 09/23/22 22... Start Date: 09/24/22 Status: Ordered Entresto 24 mg-26 mg oral tablet 1 tablet, By Mouth, 2 times a day, # 60 tablet, 0 Refills, Maintenance, 09/24/22 14:23:00 EDT, Tablet, [facility] 3, Partial fill upon patient request if the prescription is for a schedule II opioid drug., 1 tablet By Mouth 2 times a day,... Start Date: 09/24/22 Status: Ordered escitalopram 10 mg oral tablet 2 tablet = 20 mg, By Mouth, Daily, # 60 tablet, 0 Refills, Maintenance, 09/24/22 16:46:00 EDT, Tablet, [facility] 3, Partial fill upon patient request [...] 0 Refills, Maintenance, 09/24/22 16:46:00 EDT, Tablet, [facility], Partial fill upon patient request if the prescription is for a schedule II opioid drug., 170.7, cm, 06... Start Date: 09/24/22 Status: Ordered midodrine 5 mg oral tablet 5 mg, 1, tablet, By Mouth, 3 times a day, # 90 tablet, Refills 0, Tot. Refills 0, Maintenance, 09/24/22 14:23:00 EDT, Route to Pharmacy Electronically, [facility], Partial fill upon patient request if the prescription is for a schedule I... Start Date: 09/24/22 Status: Ordered topiramate 100 mg oral tablet 1 tablet = 100 mg, By Mouth, 2 times a day, # 60 tablet, 0 Refills, Maintenance, 09/24/22 16:46:00 EDT, Tablet, [facility], Partial fill [...] 1 Refills, Maintenance, 07/23/22 11:24:00 EDT, Tablet, [facility]/pharmacy #[id number], Partial fill upon patient request if the prescription is for a schedule I... Start Date: 07/23/22 Status: Ordered warfarin 5 mg oral tablet 2-3 tablets, By Mouth, Daily, TAKE 2 TO 3 TABLETS PO DAILY DIRECTED BY [facility], # 90 tablet, 9 Refills, Maintenance, 09/25/22 11:40:00 EDT, [facility], Partial fill upon [...] 270 tablet, 2Refills, Maintenance, 10/25/22 10:01:00 EDT, [facility]/pharmacy #[id number], Partial fill [...] Team Personnel Name: Oziel Tapia RN Position: [facility] RN Member Role: Primary Care Nurse Name: Aria Patel RN Position: [facility] AMB Nurse Member Role: Primary Care Nurse Name: Summer Donis Position: [facility] RN Member Role: Primary Care Nurse Name: Albert Hernandez RN Position: [facility] RN Member Role: Primary Care Nurse Name: Yaneth Gray RN Position: [facility] SN RN Member Role: Primary Care Nurse Name: Sagrario Eden Position: [facility] RN Member Role: Primary Care Nurse Name: Brandin Valdez MD Position: [facility] Physician - Primary Care Member Role: PCP Address: Address: [address] [place] [id number] Name: Taras Yuen RN Position: S RN Member Role: Primary Care Nurse Name: Aditi Clifton RN Position: S RN Member Role: Primary Care Nurse Name: Mary Fisher Position: S RN Member Role: Primary Care Nurse Name: Fatemeh Saldaña PharmD Position: [facility] Associate Professional Member Role: Lifetime Consulting Provider Address: Address: [address] [facility] [place] [address]- Name: Fatemeh Hernandez Position: [facility] Outreach Member Role: Lifetime Consulting Physician Name: Katt Márquez RN Position: [facility] RN Member Role: Primary Care Nurse Name: Nabeel Agarwal MD Position: [facility] Renal MD Member Role: Lifetime Consulting Physician Address: Address: [address] [place] [address] [address] [facility] [place] [address]- Name: Michaela Funes RN Position: [facility] RN Member Role: Primary Care Nurse Name: Susy Jose RN Position: [facility] RN Member Role: Primary Care Nurse Name: Brandon Stevens MD Position: [facility] Renal MD Member Role: Lifetime Consulting Physician Address: Address: [address] [place] [address] [facility] [place] [place] [address]- Name: Arabella Mcghee Position: [facility] Outreach Member Role: Lifetime Consulting Physician Name: Tangela Segovia LPN Position: [facility] RN Member Role: Primary Care Nurse Care Team Related Persons Name: RONI HANS Address: home [address] [place] [address] Name: CHATO PARKS Address: [address] [place] [address]
--- OUTSIDE RECORDS SUMMARY | 2023-02-07 20:14 | XMS_ITS | Continuity of Care Document ---
Author Name Unknown Organization [facility] Address [address] [place] [address]- Care Team Providers Care Customer Accounts Advisor Name Role Phone Brandin Valdez MD Primary Care Physician [place] [facility] [place] 07/01/22 [facility] [address] [place] [address]- [place] Allergies, Adverse Reactions, Alerts Substance Reaction [...] 07/04/22 12:54:00 EDT, 06/24/22 12:54:00 EDT, Tablet, [facility]/pharmacy #[id number], Partial fill upon [...] 02/18/22 7:13:00 EST, Route to Pharmacy Electronically, [facility], Partial fill upon patient [...] 0 Refills, Maintenance, 04/20/22 15:26:00 EST, Tablet, [facility], Partial fill upon patient request if the prescription is for... Start Date: 04/20/22 Stop Date: 05/20/22 Status: Ordered warfarin 5 mg oral tablet See Instructions, Take 1 to 2.5 tablets by mouth daily as directed by [facility], # 225 tablet, 1 Refills, Maintenance, 04/13/22 17:25:00 EST, Tablet, [facility]/pharmacy #[id number], Partial fill upon patient request if the prescription is for a schedule... Start Date: 04/13/22 Status: Ordered warfarin 5 mg oral tablet See Instructions, Take 1 to 2 and 1/2 tablets by mouth daily as directed by the [facility], # 30 tablet, 4 Refills, Maintenance, 04/20/22 15:25:00 EST, Tablet, [facility], Partial fill upon patient [...] Team Personnel Name: Oziel Tapia RN Position: [facility] RN Member Role: Primary Care Nurse Name: Aria Patel RN Position: [facility] Nurse Member Role: Primary Care Nurse Name: Summer Donis Position: S RN Member Role: Primary Care Nurse Name: Yaneth Gray RN Position: [facility] RN Member Role: Primary Care Nurse Name: Sagrario Eden Position: [facility] RN Member Role: Primary Care Nurse Name: Brandin Valdez MD Position: [facility] Physician (General Medicine) Member Role: PCP Address: Address: [address] [place] [address]- [place] Name: Taras Yuen RN Position: [facility] RN Member Role: Primary Care Nurse Name: Aditi Clifton RN Position: [facility] RN Member Role: Primary Care Nurse Name: Fatemeh Saldaña PharmD Position: [facility] Associate Professional Member Role: Lifetime Consulting Provider Address: Address: [address] [place] [address]- [place] Name: Fatemeh Hernandez Position: [facility] Outreach Member Role: Lifetime Consulting Physician Name: Katt Márquez RN Position: [facility] RN Member Role: Primary Care Nurse Name: Nabeel Agarwal MD Position: [facility] Renal MD Member Role: Lifetime Consulting Physician Address: Address: [address] [place] [address] [address] [facility] [place] [address]- [place] Name: Michaela Funes RN Position: [facility] RN Member Role: Primary Care Nurse Name: Arabella Mcghee Position: [facility] Outreach Member Role: Lifetime Consulting Physician Name: Tangela Segovia LPN Position: [facility] RN Member Role: Primary Care Nurse Care Team Related Persons Name: HANS TAMAYO Address: [address] [place] [address] Name: CHATO PARKS Address: [address] [place] [address]
--- OUTSIDE RECORDS SUMMARY | 2023-02-07 20:14 | XMS_ITS | Continuity of Care Document ---
Author Name Unknown Organization [facility] ter Address [address] [place] [id number]- Care Team Providers Care Materials Scientist Name Role Phone Brandin Valdez MD Primary Care Physician [phone] Encounter [facility] Date(s): 02/05/23 - 02/06/[address] [address]- Encounter Diagnosis Depression(Final) - 02/06/23 Discharge Disposition: A-D/C Home Attending Physician: Mariela Melendez MD Admitting Physician: Mariela Melendez MD Referring Physician: Not on Staff, Referring [...] 09/24/22 16:47:00 EDT, Route to Pharmacy Electronically, [facility], Partial fill upon patient request if the prescription is for a schedule II opioi... Start Date: 09/24/22 Status: Ordered atorvastatin 10 mg oral tablet 1 tablet = 10 mg, By Mouth, Daily, # 30 tablet, 0 Refills, Maintenance, 09/24/22 14:23:00 EDT, Tablet, [facility], Partial fill upon patient request if the prescription is for a schedule II opioid drug., 170.7, cm, 09/23/22 22:36:00 EDT,... Start Date: 09/24/22 Status: Ordered brimonidine 0.2% ophthalmic solution See Instructions, 1 drops Every 8 hours to right eye, # 15 mL, 0 Refills, Maintenance, 09/24/22 14:22:00 EDT, Ophth Solution, [facility], Partial fill upon patient request if the prescription is for a schedule II opioid drug., 1 drops Ev... Start Date: 09/24/22 Status: Ordered carvedilol 3.125 mg oral tablet 3.125 mg, 1, tablet, By Mouth, 2 times a day, # 60 tablet, Refills 0, Tot. Refills 0, Maintenance, 09/24/22 14:22:00 EDT, Route to Pharmacy Electronically, [facility], Partial fill uponpatient request if the prescription is for a schedu... Start Date: 09/24/22 Status: Ordered carvedilol 3.125 mg oral tablet 3.125 mg, Tablet, By Mouth, 02/05/23 23:43:00 EDT Start Date: 02/05/23 Stop Date: 02/05/23 Status: Completed duloxetine 30 mg oral enteric [...] Maintenance, 09/24/22 16:46:00 EDT, Tablet, [facility], Partial [...] 0 Refills, Maintenance, 09/24/22 16:46:00 EDT, Tablet, [facility], Partial fill upon patient request if the prescription is for a schedule II opioid drug., 170.7, cm, 06... Start Date: 09/24/22 Status: Ordered midodrine 5 mg oral tablet 5 mg, 1, tablet, By Mouth, 3 times a day, # 90 tablet, Refills 0, Tot. Refills 0, Maintenance, 09/24/22 14:23:00 EDT, Route to Pharmacy Electronically, [facility], Partial fill upon patient request if the prescription is for a schedule I... Start Date: 09/24/22 Status: Ordered topiramate 100 mg oral tablet 1 tablet = 100 mg, By Mouth, 2 times a day, # 60 tablet, 0 Refills, Maintenance, 09/24/22 16:46:00 EDT, Tablet, [facility], Partial fill upon [...] 1 Refills, Maintenance, 07/23/22 11:24:00 EDT, Tablet, [id number], Partial fill upon patient request if the prescription is for a schedule I... Start Date: 07/23/22 Status: Ordered warfarin 5 mg oral tablet 2-3 tablets, By Mouth, Daily, TAKE 2 TO 3 TABLETS PO DAILY DIRECTED BY [facility], # 90 tablet, 9 Refills, Maintenance, 09/25/22 11:40:00 EDT, [facility], Partial fill upon patient request if the prescription is for a schedule II... Start Date: 09/25/22 Status: Ordered warfarin 5 mg oral tablet See Instructions, Take 1 to 2 and 1/2 tablets by mouth daily as directed by the [facility], # 30 tablet, 4 Refills, Maintenance, 04/20/22 15:25:00 EST, Tablet, [facility], Partial fill upon patient request if the prescription is for... Start Date: 04/20/22 Status: Ordered warfarin 5 mg oral tablet See Instructions, take 2-3 tabs by mouth daily as directed by the coumadinc clinic, # 270 tablet, 2Refills, Maintenance, 10/25/22 10:01:00 EDT, [facility]/pharmacy #[id number], Partial fill upon patient request [...] Results Orders for Microbiology Reports Name Date Arthropod Identification 02/06/23 Microbiology Reports TEST:Arthropod Identification STATUS:Auth (Verified) BODY SITE: SOURCE:ARTHRO COLLECTED DATE/TIME:02/06/23 9:06 AM Arthropod Identification SPECIMEN DESCRIPTION : ARTHROPOD DIRECT EXAM : NOT A HUMAN PARASITE REPORT STATUS : FINAL 02/06/2023 Vital Signs Most recent to oldest [Reference Range]: 1 2 3 Oxygen Saturation [94-100 %] 97 % (02/06/23 7:52 AM) 99 % (02/05/23 11:43 PM) Pulse Rate [55-90 bpm] 72 bpm (02/06/23 7:52 AM) 84 bpm (02/05/23 11:43 PM) 91 bpm *H* (02/05/23 4:35 PM) Blood Pressure [90-138/55-84 mm Hg] 181/109mm Hg *H* (02/06/23 7:52 AM) 133/89mm Hg (02/05/23 11:43 PM) 127/99mm Hg (02/05/23 4:35 PM) Respiratory Rate [16-30 br/min] 18 br/min (02/06/23 7:52 AM) 17 br/min (02/05/23 11:43 PM) 18 br/min (02/05/23 4:35 PM) Temperature [96.8-100.4 DegF] 97.2 DegF (02/06/23 7:52 AM) 98 DegF (02/05/23 11:43 PM) 98.4 DegF (02/05/23 4:35 PM) Mode of Delivery (Oxygen) Room air (02/06/23 7:52 AM) Room air (02/05/23 11:43 PM) Room air (02/05/23 4:35 PM) Blood pressure sites Arm, right (02/06/23 7:52 AM) Arm, right (02/05/23 11:43 PM) Arm, right (02/05/23 4:35 PM) Temperature Route Oral (02/06/23 7:52 AM) Oral (02/05/23 11:43 PM) Oral (02/05/23 4:35 PM) Social History Social History Type Response Smoking Status Never (less than 100 in lifetime) entered on: 02/14/22 Sex Male Note * Al GONZALEZ, Mariela Ragsdale: PERFORM Event Display: Patient Education Leaflets Authored Date: [id number] Recognizing Suicide Warning Signs in Yourself ?? [address] Recognizing Suicide Warning Signs in Yourself People who are thinking about suicide may not know they are depressed. Certain thoughts, feelings, and actions can be signals that let you know you may need help. The best thing you can do is watch for signs that you may be at risk. Then, ask for help. You can talk with your regular healthcare provider or get help from a mental health provider. Depression Depression is a treatable illness, just like diabetes or heart disease. And like those illnesses, depression is not something that you can just snap out of. To feel better, treatment is needed before depression gets to a point that it can endanger your life. To know if depression is causing you to feel like ending your life, ask yourself: ??? Do I feel worthless, guilty, helpless, or hopeless? Have I been feeling sad, down, or blue on most days? Have I lost interest in my work or people I used to enjoy? Do I have trouble sleeping or do I sleep too much? Do I eat more or lessthan normal? Do I feel tired, weak, and low on energy? Do I feel restless and unable to sitstill? Do I have trouble thinking or making choices? Do I cry more than normal? Do I feel life isn't worth living? ?? Warning signs for suicide Call your healthcare provider or get help right away if you have any of the warning signs below. You can also call a mental health clinic or the suicide prevention lifeline for help and support. Warning signs for suicide include: ??? Thinking often about taking your life ??? Planning how you may attempt it ??? Talking or writing about suicide ??? Feeling that is the only solution to your problems ??? Feeling a pressing need to make out your will or arrange your ??? Giving away things you own ??? Taking part in risky behaviors, such as having sex with someone you don't know, or drinking and driving ??? Buying a lethal weapon, such as a gun, or hoarding medicines that could be used in an overdose ?? Call or text 988 If you are in immediate risk of harming yourself or others, call 988. When you call or text 988, you will be connected to trained crisis counselors. An online chat option is also available. Lifeline is free and available 05/11. ?? To learn more For more information about depression and suicide prevention: ??? National Suicide Prevention Lifeline at www.suicidepreventionlifeline.org or 197-049-QOIZ (712-266-4806) ??? National [place] on Mental Illness at www.paco.org or 578-573-2083 ??? Mental Health Pily at www.[facility].org or 929-006-5760 ??? National [place] of Mental Health at www.[facility].nih.gov or 138-735-1536 ?? Last Reviewed Date: 2021 ?? [employer]. All rights reserved. This information is not intended as a substitute for professional medical care. Always follow your healthcare professional's instructions. ?? Patient Care team information Care Team Personnel Name: Oziel Tapia RN Position: [facility] RN Member Role: Primary Care Nurse Name: Aria Patel RN Position: [facility] AMB Nurse Member Role: Primary Care Nurse Name: Summer Donis Position: [facility] RN Member Role: Primary Care Nurse Name: Hanna Cherry MA Position: [facility] Outreach Member Role: Lifetime Consulting Physician Name: Yaneth Gray RN Position: [facility] SN RN Member Role: Primary Care Nurse Name: Sagrario Eden Position: [facility] RN Member Role: Primary Care Nurse Name: Brandin Valdez MD Position: [facility] Physician - Primary Care Member Role: PCP Address: Address: [address] [place] [id number]- Name: Taras Yuen RN Position: [facility] RN Member Role: Primary Care Nurse Name: Aditi Clifton RN Position: [facility] RN Member Role: Primary Care Nurse Name: Mary Fisher Position: [facility] RN Member Role: Primary Care Nurse Name: Fatemeh Saldaña PharmD Position: [facility] Associate Professional Member Role: Lifetime Consulting Provider Address: Address: [address] [place] [id number]- [place] Name: Fatemeh Hernandez Position: [facility] Outreach Member Role: Lifetime Consulting Physician Name: Katt Márquez RN Position: [facility] RN Member Role: Primary Care Nurse Name: Nabeel Agarwal MD Position: [facility] Renal MD Member Role: Lifetime Consulting Physician Address: Address: [address] [facility] [address] [facility] [place] [address]- [place] Name: Michaela Funes RN Position: [facility] RN Member Role: Primary Care Nurse Name: Susy Jose RN Position: [facility] RN Member Role: Primary Care Nurse Name: Brandon Stevens MD Position: [facility] Renal MD Member Role: Lifetime Consulting Physician Address: Address: [address] [place] [address] [facility] [place] [address]- Name: Xiao Mcgheeily Position: [facility] Outreach Member Role: Lifetime Consulting Physician Name: Tangela Segovia LPN Position: [facility] RN Member Role: Primary Care Nurse Name: *[facility], ED Attending Position: [facility] ED Attendings Patient Name: Jeana Fuchs RN Position: [facility] ED RN W/OE and Tasks Member Role: Patient Care Provider Name: Al GONZALEZ, Mariela Ragsdale Position: [facility] ED Medicine MD Member Role: Admitting Physician Address: Address: [address] [place] [id number]- Care Team Related Persons Name: RONI HANS Address: home [address] [place] [address] Name: CHATO PARKS Address: home [address] [place] [id number]
[2023-02-07 20:15] VITALS: BP 138/92; PULSE 86; RESP 18; TEMP 36.6; O2SAT 96
--- OUTSIDE RECORDS SUMMARY | 2023-02-07 20:15 | XMS_ITS | Patient Health Record ---
Author Name Unknown Organization [facility] Address [address] [place] [address] Care Team Providers Care Manager Reliability Name Role Phone TORRI MOCK Primary Care Provider Gladys Blanco Unavailable [phone] ALLERGIES Allergen (clinical drug ingredient) Drug/Non Drug Allergy documented on EMR Reaction Allergy Type Onset Date Status vancomycin Vancomycin HCl Unknown Drug Allergy A ctive dapagliflozin Farxiga increased urination/blurry vision Drug Allergy Active RESULTS Component Value Reference Range Notes ToxASSURE (R) Select 13 (Pre scription Drug Monitoring Screen) Reviewed date:05/09/2022 12:27:57 PM Interpretation: Performing Lab:Testing performed or reported by [facility], a Service of [facility], [address] [place] [address] [place] [address] Berhane Meredith MD, Advertising Traffic Manager [facility]# [id number] Notes/Report: ToxASSURE(R) Select FINAL (NOTE) TOXASSURE SELECT 13 (MW) Test Result Flag Units Drug Present Lorazepam 144 ng/mg creat Source of lorazepam is a scheduled prescription medication. Test Result Flag Units Ref Range Creatinine 113 mg/dL > EQ 20 Declared Medications: Medication list was not provided. For clinical consultation, please call . BASIC METABOLIC PANEL Reviewed date:03/23/2022 03:13:38 PM Interpretation: Performing Lab:Testing performed or reported by [facility], a Service of [facility], [address] [place] [address] Shaniqua Espitia MD, Advertising Traffic Manager [facility]# [id number] Notes/Report: GLUCOSE 131 (70-99) MG/DL BUN 28 (6-20) MG/DL CREATININE 1.3 (0.7-1.2) MG/DL SODIUM 143 (133-145) MMOL/L POTASSIUM 4.4 (3.6-5.2) MMOL/L CHLORIDE 107 (98-107) MMOL/L BICARBONATE 25 (22-29) MMOL/L ANION GAP 11 (4-17) CALCIUM 9.5 (8.6-10.5) MG/DL ESTIMATED GFR CREATININE 69 Creatinine based estimated glomerular filtration (eGFR) in adults is calculated using the National Kidney Foundation recommended 2020 CKD-EPI equation. Estimates GFR from serum creatinine, age and sex. HEMOGLOBIN A1C WITH EST GLUC OSE Reviewed date:04/15/2022 09:56:04 PM Interpretation: Performing Lab:Testing performed or reported by [facility], a Service of [facility], [address] [place] [address] Shaniqua Esptiia MD, Advertising Traffic Manager [facility]# [id number] Notes/Report: HEMOGLOBIN A1C 5.6 (4.0-5.6) % MONITORING: In known diabetic patients, hemoglobin A1c targets should be discussed with health care provider. DIAGNOSTIC USE: The [place] Diabetes Association (ADA) and the World Health Organization (WHO) recommend the use of HbA1c to diagnose diabetes using a threshold of 6.5%. Patients who have an HbA1c between 5.7% and 6.4% are considered at increased risk for developing diabetes in the future. CAUTION: Falsely low HbA1c results may be observed in patients with hemolytic anemia, homozygous forms of abnormal hemoglobin (e.g. SS, CC, SC), , recent blood loss or hemoglobin F greater than 7%. Fructosamine may be used as an alternate test in these cases. REFERENCE: ADA: Standards of Medical Care in Diabetes 2020, The Journal of Clinical and Applied Research and Education Volume 43, Supplement 1 ESTIMATED AVERAGE GLUCOSE 114 Xray: Foot Left-Min 3 Vws Reviewed date:05/22/2022 11:59:27 AM Interpretation: Performing Lab: Notes/Report: CALPROTECTIN,FECAL Reviewed date:07/20/2022 08:10:16 AM Interpretation: Performing Lab:Testing performed or reported by [facility], a Service of [facility], [address] [place] [address] Berhane Meredith MD, Advertising Traffic Manager [facility]# [id number] Notes/Report: CALPROTECTIN,FECAL 47 Reference range: 0 to 120 Unit: ug/g (NOTE) Concentration Interpretation Follow-Up <16 - 50 ug/g Normal None >50 -120 ug/g Borderline Re-evaluate in 4-6 weeks >120 ug/g Abnormal Repeat as clinically indicated Test performed at [address] [address] LACTOFERRIN, STOOL Reviewed date:07/25/2022 04:22:19 PM Interpretation: Performing Lab:Testing performed or reported by [facility], a Service of [facility], [address] [place] [address] Berhane Meredith MD, Advertising Traffic Manager [facility]# [id number] Notes/Report: LACTOFERRIN, FECAL <1.00 Reference range: 0.00 to 7.24 Unit: ug/mL(g) (NOTE) Results verified by repeat testing Baseline (normal) 0.00 - 7.24 Elevated >7.24 An elevated result is indicative of the presence of fecal lactoferrin, a marker of intestinal inflammation. A normal result does not exclude the presence of intestinal inflammation. The test can be used as an in vitro diagnostic aid to distinguish patients with active inflammatory bowel disease (IBD) from those with non-inflammatory irritable bowel syndrome (IBS). Test performed at [address] [address] C. DIFFICILE TOXIN Reviewed date:07/17/2022 11:58:53 AM Interpretation: Performing Lab:Testing performed or reported by [facility], a Service of [facility], [facility] [place] [address] Berhane Meredith MD, Advertising Traffic Manager [facility]# [id number] Notes/Report: C. DIFFICILE TOXIN Negative. C.Difficile bacterial antigen and toxin not detected. A (NGCDF7) negative test result does not rule out the possibility of C.Difficile associated disease. If clinical suspicion is high, consider resubmission after 7 days. ROUTINE CULTURE, STOOL Reviewed date:07/20/2022 10:51:09 AM Interpretation: Performing Lab:Testing performed or reported by [facility], a Service of [facility], [facility] [place] [address] Berhane Meredith MD, Advertising Traffic Manager [facility]# [id number] Notes/Report: STOOL CULTURE SOURCE STOOL SALMONELLA/SHIGELLA SCREEN Final report CAMPYLOBACTER CULTURE Final report E COLI SHIGA TOXIN EIA NEGATIVE Reference range: NEGATIVE Test performed by [facility], [place] [address] SALMONELLA/SHIGELLA RESULTS Reviewed date:07/20/2022 10:51:12 AM Interpretation: Performing Lab:Testing performed or reported by [facility], a Service of [facility], [facility] [place] [address] Berahne Meredith MD, Advertising Traffic Manager [facility]# [id number] Notes/Report: SCREEN RESULT 1 Comment (NOTE) No Salmonella or Shigella recovered. Test performed by [facility], [address] [place] [address] CAMPYLOBACTER RESULTS Reviewed date:07/20/2022 10:51:18 AM Interpretation: Performing Lab:Testing performed or reported by [facility], a Service of [facility], [address] [place] [address] [place] [address] Berhane Meredith MD, Advertising Traffic Manager [facility]# [id number] Notes/Report: CULTURE RESULT 1 Comment (NOTE) No Campylobacter species isolated. Test performed by [facility], [address] [place] [address] MICROALBUMIN, URINE Reviewed date:01/28/2023 01:08:42 PM Interpretation: Performing Lab:Testing performed or reported by [facility], a Service of [facility], [address] [place] [address] Berhane Meredith MD, Advertising Traffic Manager [facility]# [id number] Notes/Report: MICRO-ALBUMIN 413.0 (<20) MG/L The urine microalbumin test is designed to monitor renal function. When screening for Bence Levin proteinuria, urine electrophoresis is recommended. MALB/CREAT RATIO 319.1 (0-20) MG/GM URINE CREAT FOR MICRO ALBUMIN 129.4 LIPID PANEL Reviewed date:01/29/2023 01:13:47 PM Interpretation: Performing Lab:Testing performed or reported by [facility], a Service of [facility], [address] [place] [address] Berhane Meredith MD, Advertising Traffic Manager [facility]# [id number] Notes/Report: CHOLESTEROL, TOTAL 165 (<200) MG/DL TRIGLYCERIDE 234 (<150) MG/DL HDL CHOL 33 (>39) MG/DL LDL CHOLESTEROL, CALCULATED 85 (0-130) MG/DL NON HDL CHOLESTEROL (CALC) 132 (<160) MG/DL COMPREHENSIVE METABOLIC PANE L Reviewed date:01/29/2023 01:14:04 PM Interpretation: Performing Lab:Testing performed or reported by [facility], a Service of [facility], [address] [place] [address] Berhane Meredith MD, Advertising Traffic Manager [facility]# [id number] Notes/Report: GLUCOSE 138 (70-99) MG/DL BUN 21 (6-20) MG/DL CREATININE 1.1 (0.7-1.2) MG/DL SODIUM 142 (133-145) MMOL/L POTASSIUM 4.2 (3.6-5.2) MMOL/L CHLORIDE 105 (98-107) MMOL/L BICARBONATE 26 (22-29) MMOL/L ANION GAP 11 (4-17) ALBUMIN 4.5 (3.4-4.8) GM/DL CALCIUM 9.7 (8.6-10.5) MG/DL BILIRUBIN,TOTAL 0.4 (0-1.2) MG/DL TOTAL PROTEIN 7.1 (6.2-8.2) GM/DL AG RATIO 1.7 AST 22 (0-40) U/L ALK PHOS 99 (40-129) U/L ALT 34 (0-41) U/L ESTIMATED GFR CREATININE 83 Creatinine based estimated glomerular filtration (eGFR) in adults is calculated using the National Kidney Foundation recommended 2020 CKD-EPI equation. Estimates GFR from serum creatinine, age and sex. HEMOGLOBIN A1C WITH EST GLUC OSE Reviewed date:01/28/2023 04:44:29 PM Interpretation: Performing Lab:Testing performed or reported by [facility], a Service of [facility], [address] [place] [address] Berhane Meredith MD, Advertising Traffic Manager [facility]# [id number] Notes/Report: HEMOGLOBIN A1C 6.0 (4.0-5.6) % MONITORING: In known diabetic patients, hemoglobin A1c targets should be discussed with health care provider. DIAGNOSTIC USE: The [place] Diabetes Association (ADA) and the World Health Organization (WHO) recommend the use of HbA1c to diagnose diabetes using a threshold of 6.5%. Patients who have an HbA1c between 5.7% and 6.4% are considered at increased risk for developing diabetes in the future. CAUTION: Falsely low HbA1c results may be observed in patients with hemolytic anemia, homozygous forms of abnormal hemoglobin (e.g. SS, CC, SC), , recent blood loss or hemoglobin F greater than 7%. Fructosamine may be used as an alternate test in these cases. REFERENCE: ADA: Standards of Medical Care in Diabetes 2020, The Journal of Clinical and Applied Research and Education Volume 43, Supplement 1 ESTIMATED AVERAGE GLUCOSE 126 PSA, SCREEN Reviewed date:01/28/2023 01:28:38 PM Interpretation: Performing Lab:Testing performed or reported by [facility], a Service of [facility], [address] [place] [address] Berhane Meredith MD, Advertising Traffic Manager [facility]# [id number] Notes/Report: PSA 3.1 (0-4) NG/ML TEST PERFORMED USING THE JESSICA ELECTROCHEMILLUMINESCENCE TOTAL PSA ASSAY. PSA VALUES OBTAINED WITH OTHER ASSAY METHODS OR KITS CANNOT BE USED INTERCHANGEABLY. REASON FOR REFERRAL Reason TRAM Diagnosis 1 Obstructive sleep ap cordell (adult) (pediatric) (G47.33) Referral Organization [facility] Referring Provider First Name TORRI Referring Provider Last Name NISH Referring Provider Speciality Internal M edicine Referred Provider Specialty Sleep Medici ne General Notes Referral request jonathan uld be sent through fax first before setting up an appt. Sent referral to [facility] - [facility] [place] [address] , phone #[phone] w/ fax# [phone]. Office will call pt for appt. , Niko Hernandez 02/19/2022 11:06:04 PM > Clinical Notes called [facility] goes to answering service offered callback on referral status provided our phone# [phone]., Niko Hernandez 03/07/2022 09:59:35 PM >, Deanna of [facility] called advised that they called pt. several times. No response or callback., Niko Hernandez 03/08/2022 12:45:59 AM > Referral Priority Routine Reason TRAM Diagnosis 1 Obstructive sleep ap cordell (adult) (pediatric) (G47.33) Referral Organization [facility] Referring Provider First Name Gladys Referring Provider Last Name Bella Referring Provider Speciality Nurse Prac kylieioner Referred Provider Specialty Pulmonary Di seases General Notes Referral request jonathan uld be sent through fax first before setting up an appt. Sent referral to [facility] - [address] [place] [address] , phone #[phone] w/ fax# [phone](sent). Office will call pt for appt., Niko Hernandez 02/23/2022 10:19:15 PM > Clinical Notes called [facility] advised facility tried to contact pt. left a couple of messages and sent a letter. No response. called Pt. advised to call [facility] to schedule an anupam. Patient is aware, have their phone#, Mary Niko 03/22/2022 02:57:19 AM > Referral Priority Routine Reason Pulmonary embolism Diagnosis 1 Other pulmonary embo lism without acute cor pulmonale (I26.99) Referral Organization [facility] Referring Provider First Name WILD Referring Provider Last Name GU Referring Provider Speciality Internal M edicine Referred Provider Specialty Hematology General Notes Referral request jonathan uld be sent through fax first before setting up an appt. Sent referral to [facility] in [address] [place] [address] , phone # [phone] w/ fax# [phone]. Office will call pt for appt., Niko Hernandez 03/22/2022 03:03:09 AM > Clinical Notes called [facility] advised no schedule yet for pt. was transferred to New Patient Coordinator lvm will refax referral. Refaxed: 06/13/2022., Niko Hernandez 06/13/2022 10:34:15 PM >, [facility] called in requested to refax, unable to read notes, blurry. Pls fax it manually to fax# [phone]., Niko Hernandez 06/14/2022 02:54:25 AM >, faxed.Pilar Heather 06/13/2022 02:47:06 PM >, Received a fax from [facility] pt. is schedule on 07/12/2022 1:30pm with Dr. Staples., Niko Hernandez 06/16/2022 05:23:28 AM > Referral Priority Routine Reason Syncope. Diabetic ne uropathy Diagnosis 1 Diabetes mellitus du e to underlying condition with diabetic neuropathy, unspecified (E08.40) Diagnosis 2 Syncope and collapse (R55) Referral Organization [facility] Referring Provider First Name WILD Referring Provider Last Name [facility] Referring Provider Speciality Internal M edicine Referred Provider Specialty Neurology General Notes patient asking about this ref, Mavis Nuno 03/21/2022 10:27:52 AM >, Referral request should be sent through fax first before setting up an appt. Sent referral to [facility] - [address], [address] [place] [address] phone # [phone] w/ fax# [phone]., Niko Hernandez 03/22/2022 03:34:00 AM > Clinical Notes faxed to [facility] as pt already sees the doctor there. Arabella Mcghee 03/26/2022 04:22:15 PM >, called [facility] - [phone] advised to refax referral to fax# [phone]. Patient was admitted on [facility] from 02/16-02-18. Have a virtual visit appt on 04/10 for Stroke. Refaxed: 04/05/2023., Niko Hernandez 04/06/2022 04:28:32 AM > Referral Priority Urgent Reason fainting, chest pain needs clearance for work Diagnosis 1 Other pulmonary embo lism without acute cor pulmonale (I26.99) Diagnosis 2 Chronic systolic (co ngestive) heart failure (I50.22) Referral Organization [facility] Referring Provider First Name TORRI Referring Provider Last Name GU Referring Provider Speciality Internal edicine Referred Provider Specialty Cardiology General Notes faxed to [phone] as that is where pt has gone., Arabella Mcghee 03/19/2022 04:06:00 PM >, Called [facility] Cardiology #[phone]. Unable to schedule appt. until pt. is seen for his initial appt. on 03/28 1:30pm., Niko Hernandez 03/22/2022 03:24:37 AM > Clinical Notes [facility]. have an scheduled Echocardiogram on 05/30/2022 1:00pm Referral Priority Routine Reason Uncontrolled Hyperte nsion Diagnosis 1 Essential (primary) hypertension (I10) Referral Organization [facility] Referring Provider First Name WILD Referring Provider Last Name GU Referring Provider Speciality Internal edicine Referred Provider Specialty Nephrology General Notes Referral request jonathan kathi be sent through fax first before setting up an appt. Sent referral to [facility] , phone # [phone] w/ fax# [phone]. Office will call pt for appt., Niko Hernandez 04/20/2022 12:24:40 AM > Clinical Notes called [facility] advised pt. is scheduled 07/18/2022 1:30pm, Niko Hernandez 07/12/2022 01:29:10 AM > Referral Priority Routine Reason Bilateral Lower Extr emity Neuropathy Diagnosis 1 Unspecified mononeur opathy of bilateral lower limbs (G57.93) Referral Organization [facility] Referring Provider First Name TORRI Referring Provider Last Name [facility] Referring Provider Speciality Internal edicine Referred Provider Specialty Physical The rapist General Notes Referral request jonathan armenta be sent through fax first before setting up an appt. [facility] [address] phone# [phone] w/ fax# [phone]. Office will call pt for appt., Niko Hernandez 07/06/2022 10:43:08 PM > Referral Priority Routine Reason ambulatory BP monito r Dr. Kat Diagnosis 1 Encounter for examin ation of blood pressure without abnormal findings (Z01.30) Diagnosis 2 Essential (primary) hypertension (I10) Referral Organization [facility] Referring Provider First Name TORRI Referring Provider Last Name [facility] Referring Provider Speciality Internal edicine Referred Provider [facility] Referred Provider Specialty Nephrology General Notes Faxed to Ritesh hernandes T Pilar sims Heather 10/10/2022 03:26:21 PM > Clinical Notes called [facility] phone# [phone] pt. canceled his appt. on 10/31/2022., Niko Hernandez 11/12/2022 09:06:46 AM > Referral Priority Routine Reason Right HERNANDEZ Diagnosis 1 Retinal artery branc h occlusion, right eye (H34.231) Referral Organization [facility] Referring Provider First Name TORRI Referring Provider Last Name [facility] Referring Provider Speciality Internal edicine Referred Provider Specialty Ophthalmolog y General Notes [facility]ed [facility] 10/11/2022 09:35:05 AM > Clinical Notes called [facility] they schedule pt. 11/15/2022 10am. Patient is aware., Niko Hernandez 11/09/2022 03:16:31 PM > Referral Priority Routine Reason intracerebral hemorr shan Diagnosis 1 Nontraumatic intrace rebral hemorrhage, unspecified (I61.9) Referral Organization [facility] Referring Provider First Name TORRI Referring Provider Last Name [facility] Provider [facility] Referred Provider Specialty Neurology General Notes Referral faxed to [facility] Heather 10/10/2022 04:29:52 PM >, pt already a pt at [facility]. He will call himself to Litzy machuca Emily 10/22/2022 01:26:00 PM > Referral Priority Routine Reason history of CVA Wel don Diagnosis 1 Personal history of transient ischemic attack (TIA), and cerebral infarction without residual deficits (Z86.73) Referral Organization [facility] Referring Provider First Name TORRI Referring Provider Last Name [facility] Referring Provider [facility]icine Ref[facility] Referred Provider Specialty Physical The rapist General Notes [place] [facility] [place] 11/08/2022 11:59:35 AM > Clinical Notes called [facility] in [place] was advised referral was received, they will be reaching out to the pt. Will follow-up., Niko Hernandez 11/23/2022 03:40:03 PM > Referral Priority Routine MEDICATIONS Medication SIG (Take, Route, Frequency, Duration) Notes Start Date End Date Status Warfarin Sodium 5 MG 1 tablet Orally Onc e a day Active Cymbalta 60 MG 1 capsule Orally Twi ce a day for 90 days Active Carvedilol 6.25 MG TAKE 1 TABLET BY MILADY TH TWICE A DAY WITH FOOD Orally Twice a day for 90 days Active Entresto 24-26 MG 1 tablet Orally Twic e a day for 90 days 09/28/2022 Active metFORMIN HCl 1000 MG TAKE 1 TABLET BY M OUTH EVERY DAY WITH A MEAL for 90 days Active Blood Pressure Kit - With large adult cu ff. Dx: I10 for 30 days 11/15/2022 Active Topiramate 100 MG 1 tablet Orally Twic e a day for 90 days Active Freestyle Test Strips as directed use to check blood sugars 3 times a day for 90 days 03/03/2020 Active Atorvastatin Calcium 20 MG 1 tablet Oral ly Once a day for 90 days Active FreeStyle Lite - as directed use to t est blood sugars for 30 days 03/03/2020 Active Cymbalta 60 MG 1 capsule Orally Twi ce a day for 90 days Active Diclofenac Sodium 3 % 1 application Exte rnally Twice a day for 30 days 07/11/2022 Active FreeStyle Lancets - as directed use to t est blood sugars 3 times a day for 90 days 03/03/2020 Active Multivitamin Men 50+ - as directed Orall y one tablet daily Active traZODone HCl 100 MG 1 tablet at bedtime as needed Orally Once a day for 30 days Active CVS B-12 500 MCG TAKE 1 TABLET BY MILADY TH EVERY DAY FOR 30 DAYS for 90 Active IMMUNIZATIONS Vaccine Route Administration Date Status Comme nts COVID Fanta Unknown 11/02/2020 Administered COVID Moderna Unknown 03/11/2021 Administered Fluzone QD IM Intramuscular 01/24/2023 Administered SOCIAL HISTORY Tobacco Use: Social History Observation Description Date Details (start date - stop date) Never Smoker NA - NA Sex Assigned At : Social History Observation Description Sex Assigned At Unknown Tobacco Use/Smoking Question Answer Notes Are you a nonsmoker Alcohol Screen (Audit-C) Question Answer Notes Did you have a drink containing alcohol in the p ast year? No Points 0 Interpretation Negative PROBLEMS Problem Type ICD Code Onset Dates Problem Status W/U Status Risk SNOMED Code Notes Problem Tinea pedis (B35.3) Active confirmed Tinea pedis (0879065) Problem Vitamin B12 deficiency anemia due to intrinsic factor deficiency (D51.0) Active confirmed Pernicious anem ia (33441030) Problem Diabetes mellitus due to underlying condition with diabetic neuropathy, unspecified (E08.40) Active confirmed Diabetic neuropathy (303601535) Problem Type 2 diabetes mellitus with unspecified complications (E11.8) Active confirmed Disorder due to type 2 diabetes mellitus (233850791) Problem Morbid (severe) obesity due to excess calories (E66.01) Active confirmed Morbid obesity (disorder) (893442522) Problem Major depressive disorder, recurrent, mild (F33.0) Active confirmed Mild recurrent major depression (57745657) Problem Anxiety disorder, unspecified (F41.9) Active confirmed Anxiety disorde r (428331515) Problem Male erectile disorder (F52.21) Active confirmed Male erect ile disorder (076635112) Problem 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) Active confirmed Transient ischemic attack (374159691) Problem Insomnia, unspecified (G47.00) Active confirmed Insomnia (420099444) Problem Obstructive sleep apnea (adult) (pediatric) (G47.33) Active confirmed Obstructive sle ep apnea syndrome (disorder) (93134968) Problem Hereditary and idiopathic neuropathy, unspecified (G60.9) Active confirmed Hereditary disorder of nervous system (298943873) Problem Polyneuropathy, unspecified (G62.9) Active confirmed Polyneuropathy (35716136) Problem Retinal artery branch occlusion, right eye (H34.231) Active confirmed Arterial retina l branch occlusion (65267501) Problem Essential (primary) hypertension (I10) Active confirmed Essential hypertension (57022782) Problem Other pulmonary embolism without acute cor pulmonale (I26.99) Active confirmed Pulmonary Embolism (25513520) Problem Chronic systolic (congestive) heart failure (I50.22) Active confirmed Chronic systoli c heart failure (063334138) Problem Nontraumatic intracerebral hemorrhage, unspecified (I61.9) Active confirmed Nontraumatic intracerebral hemorrhage (740204746310769) Problem Cerebral infarction, unspecified (I63.9) Active confirmed Cerebral infarction (543605541) Problem Edema, unspecified (R60.9) Active confirmed Edema (00663903) Problem Solitary pulmonary nodule (R91.1) Active confirmed Solitary pulmonary nodule (547899452) Problem Personal history of pulmonary embolism (Z86.711) Active confirmed History of pulmonary embolus (774342846) Problem Hyperlipidemia, unspecified (E78.5) Active confirmed Hyperlipidemia (27790213) Problem Unspecified mononeuropathy of bilateral lower limbs (G57.93) Active confirmed Mononeuropath y of lower limb (750360858) VITAL SIGNS Heart Rate 92 /min 01/24/2023 Temperature 98.2 degrees Fahrenheit 01/24/2023 Oximetry 97 % 01/24/2023 Blood pressure diastolic 90 mm Hg 01/24/2023 Height 66.61 in 01/24/2023 Blood pressure systolic 138 mm Hg 01/24/2023 Weight 210 lbs 01/24/2023 BMI 33.27 kg/m2 01/24/2023 Encounters Encounter Location Date Provider Diagnosis [facility] [address] [place] [address] 02/21/2022 [facility] [address] [place] [address] 04/18/2022 [facility] [address] [place] [address] 05/10/2022 [facility] [address] [place] [address] 05/16/2022 [facility] [address] [place] [address] 06/07/2022 [facility] [address] [place] [address] 08/28/2022 [facility] [address] [place] [address] 02/05/2023 [facility] [address] [place] [address] 02/07/2023 [facility] [address] [place] [address] 02/08/2022 [facility] Essential (primary) hypertension I10 ; Other pulmonary embolism without acute cor pulmonale I26.99 ; Diabetes mellitus due to underlying condition with diabetic neuropathy, unspecified E08.40 ; Anxiety disorder, unspecified F41.9 ; Obstructive sleep apnea (adult) (pediatric) G47.33 ; Morbid (severe) obesity due to excess calories E66.01 and Dietary counseling and surveillance Z71.[address] [address] 02/14/2022 [facility] Essential (primary) hypertension I10 ; Other pulmonary embolism without acute cor pulmonale I26.99 ; Diabetes mellitus due to underlying condition with diabetic neuropathy, unspecified E08.40 ; Anxiety disorder, unspecified F41.9 ; Obstructive sleep apnea (adult) (pediatric) G47.33 ; Morbid (severe) obesity due to excess calories E66.01 and Dietary counseling and surveillance Z71.[address] [address] 03/07/2022 [facility] Essential (primary) hypertension I10 ; Anxiety disorder, unspecified F41.9 ; Other pulmonary embolism without acute cor pulmonale I26.99 ; Hyperlipidemia, unspecified E78.5 ; Chronic systolic (congestive) heart failure I50.22 ; 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 ; Morbid (severe) obesity due to excess calories E66.01 and Dietary counseling and surveillance Z71.[address] [address] 03/21/2022 Gladys Bella Essential (primary) hypertension I10 ; Anxiety disorder, unspecified F41.9 ; Other pulmonary embolism without acute cor pulmonale I26.99 ; Hyperlipidemia, unspecified E78.5 ; Chronic systolic (congestive) heart failure I50.22 ; 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 ; Morbid (severe) obesity due to excess calories E66.01 and Dietary counseling and surveillance Z71.[address] [address] 04/27/2022 [facility] Diabetes mellitus du e to underlying condition with diabetic neuropathy, unspecified E08.40 ; Essential (primary) hypertension I10 ; Anxiety disorder, unspecified F41.9 ; Hyperlipidemia, unspecified E78.5 and Other pulmonary embolism without acute cor pulmonale I26.[address] [address] 05/04/2022 [facility] Essential (primary) hypertension I10 ; Other pulmonary embolism without acute cor pulmonale I26.99 ; Dental caries, unspecified K02.9 and Anxiety disorder, unspecified F41.[address] [address] 05/23/2022 [facility] Diabetes mellitus du e to underlying condition with diabetic neuropathy, unspecified E08.40 ; Essential (primary) hypertension I10 ; Hyperlipidemia, unspecified E78.5 and Anxiety disorder, unspecified F41.[address] [address] 06/04/2022 [facility] Diabetes mellitus du e to underlying condition with diabetic neuropathy, unspecified E08.40 ; Essential (primary) hypertension I10 ; Anxiety disorder, unspecified F41.9 and Other pulmonary embolism without acute cor pulmonale I26.[address] [address] 07/11/2022 [facility] Polyneuropathy, unspecified G62.9 ; Anxiety disorder, unspecified F41.9 ; Other pulmonary embolism without acute cor pulmonale I26.99 and Diarrhea, unspecified R19.[address] [address] 08/08/2022 [facility] Essential (primary) hypertension I10 ; Anxiety disorder, unspecified F41.9 ; Hyperlipidemia, unspecified E78.5 and Diabetes mellitus due to underlying condition with diabetic neuropathy, unspecified E08.[address] [address] 10/10/2022 [facility] Nontraumatic intracerebral hemorrhage, unspecified I61.9 ; Essential (primary) hypertension I10 ; Type 2 diabetes mellitus with unspecified complications E11.8 ; Chronic systolic (congestive) heart failure I50.22 and Orthostatic hypotension I95.[address] [address] 11/07/2022 [facility] Essential (primary) hypertension I10 ; Cerebral infarction, unspecified I63.9 ; Hyperlipidemia, unspecified E78.5 ; Chronic systolic (congestive) heart failure I50.22 ; Anxiety disorder, unspecified F41.9 and Insomnia, unspecified G47.00 [facility] [address] [place] [address] 12/27/2022 [facility] Essential (primary) hypertension I10 ; Diabetes mellitus due to underlying condition with diabetic neuropathy, unspecified E08.40 ; Hyperlipidemia, unspecified E78.5 ; Chronic systolic (congestive) heart failure I50.22 ; Anxiety disorder, unspecified F41.9 and Polyneuropathy, unspecified G62.9 [facility] [address] [place] [address] 01/24/2023 [facility] Diabetes mellitus du e to underlying condition with diabetic neuropathy, unspecified E08.40 ; Essential (primary) hypertension I10 ; Hyperlipidemia, unspecified E78.5 ; Chronic systolic (congestive) heart failure I50.22 ; Anxiety disorder, unspecified F41.9 ; Polyneuropathy, unspecified G62.9 ; Other pulmonary embolism without acute cor pulmonale I26.99 ; Encounter for screening for malignant neoplasm of prostate Z12.5 and Encounter for immunization Z23 [facility] [address] [place] [address] 02/06/2023 [facility] [address] [place] [address] 02/08/2022 [facility] [address] [place] [address] 02/08/[address] [address] 02/13/2022 [facility] [address] [place] [address] 02/13/[address] [address] 02/14/2022 [facility] [address] [place] [address] 02/15/[address] [address] 02/26/2022 [facility] [address] [place] [address] 02/27/2022 [facility] [address] [place] [address] 03/01/[address] [address] 03/02/2022 [facility] [address] [place] [address] 03/13/2022 [facility] [address] [place] [address] 03/13/[address] [address] 03/14/[address] [address] 03/16/[address] [address] 03/20/2022 [facility] [address] [place] [address] 03/20/[address] [address] 03/27/[address] [address] 03/28/[address] [address] 03/30/2022 [facility] Anxiety disorder, unspecified F41.[address] [address] 04/03/[address] [address] 04/10/2022 [facility] Personal history of pulmonary embolism Z86.711 [facility] [address] [place] [address] 04/19/2022 [facility] Anxiety disorder, unspecified F41.9 [facility] [address] [place] [address] 04/27/2022 [facility] Anxiety F41.9 [facility] [address] [place] [address] 05/03/2022 [facility] [address] [place] [address] 05/04/2022 [facility] [address] [place] [address] 05/09/2022 [facility] [address] [place] [address] 05/09/2022 [facility] [address] [place] [address] 05/17/2022 [facility] [address] [place] [address] 05/21/2022 [facility] [address] [place] [address] 05/23/[address] [address] 05/24/2022 [facility] [address] [place] [address] 05/25/[address] [address] 05/29/2022 [facility] [address] [place] [address] 06/05/2022 [facility] [address] [place] [address] 06/06/2022 [facility] [address] [place] [address] 06/07/2022 [facility] [address] [place] [address] 06/11/2022 [facility] [address] [place] [address] 06/13/2022 [facility] [address] [place] [address] 06/14/2022 [facility] [address] [place] [address] 06/18/2022 [facility] [address] [place] [address] 06/19/2022 [facility] [address] [place] [address] 06/21/2022 [facility] [address] [place] [address] 06/26/2022 [facility] [address] [place] [address] 06/28/2022 [facility] [address] [place] [address] 07/11/2022 [facility] [address] [place] [address] 07/16/2022 [facility] [address] [place] [address] 07/24/2022 [facility] [address] [place] [address] 07/27/2022 [facility] [address] [place] [address] 08/13/2022 [facility] [address] [place] [address] 08/16/2022 [facility] [address] [place] [address] 08/20/2022 [facility] [address] [place] [address] 08/22/2022 [facility] [address] [place] [address] 08/29/2022 [facility] [address] [place] [address] 09/03/2022 [facility] [address] [place] [address] 09/03/2022 [facility] [address] [place] [address] 09/04/2022 [facility] [address] [place] [address] 09/28/2022 [facility] Type 2 diabetes mellitus with unspecified complications E11.8 and Anxiety disorder, unspecified F41.9 [facility] [address] [place] [address] 09/28/2022 [facility] [address] [place] [address] 10/05/2022 [facility] [address] [place] [address] 10/08/2022 [facility] [address] [place] [address] 10/08/2022 [facility] [address] [place] [address] 10/09/2022 [facility] [address] [place] [address] 10/15/2022 [facility] [address] [place] [address] 10/17/2022 [facility] [address] [place] [address] 10/19/2022 [facility] [address] [place] [address] 10/23/2022 [facility] [address] [place] [address] 10/25/2022 [facility] [address] [place] [address] 10/25/2022 [facility] Anxiety disorder, unspecified F41.9 [facility] [address] [place] [address] 10/26/2022 [facility] [address] [place] [address] 10/30/2022 [facility] [address] [place] [address] 11/14/2022 [facility] [address] [place] [address] 11/15/2022 [facility] [address] [place] [address] 11/23/2022 [facility] [address] [place] [address] 12/04/2022 [facility] [address] [place] [address] 01/10/2023 [facility] [address] [place] [address] 01/22/2023 [facility] [address] [place] [address] 01/29/2023 [facility] [address] [place] [address] 02/04/2023 [facility] [address] [place] [address] 02/05/2023 [facility] [address] [place] [address] 02/05/2023 [facility] Encounter Date Diagnosis Assessment Notes Treatment Notes Treatment Clinical Notes 02/08/2022 Essential (primary) hypertension (ICD-10 - I10) 03/07/2022 Essential (primary) hypertension (ICD-10 - I10) 03/07/2022 Anxiety disorder, unspecified (ICD-10 - F41.9) 03/21/2022 Essential (primary) hypertension (ICD-10 - I10) 03/21/2022 Anxiety disorder, unspecified (ICD-10 - F41.9) 03/30/2022 Anxiety disorder, unspecified (ICD-10 - F41.9) 04/10/2022 Personal history of pulmonary embolism (ICD-10 - Z86.711) 04/19/2022 Anxiety disorder, unspecified (ICD-10 - F41.9) 04/27/2022 Diabetes mellitus du e to underlying condition with diabetic neuropathy, unspecified (ICD-10 - E08.40) 04/27/2022 Essential (primary) hypertension (ICD-10 - I10) 02/14/2022 Essential (primary) hypertension (ICD-10 - I10) 02/14/2022 Other pulmonary embolism without acute cor pulmonale (ICD-10 - I26.99) 04/27/2022 Anxiety (ICD-10 - F41.9) 05/04/2022 Essential (primary) hypertension (ICD-10 - I10) 05/04/2022 Other pulmonary embolism without acute cor pulmonale (ICD-10 - I26.99) 05/23/2022 Diabetes mellitus du e to underlying condition with diabetic neuropathy, unspecified (ICD-10 - E08.40) 05/23/2022 Essential (primary) hypertension (ICD-10 - I10) 06/04/2022 Diabetes mellitus du e to underlying condition with diabetic neuropathy, unspecified (ICD-10 - E08.40) 06/04/2022 Essential (primary) hypertension (ICD-10 - I10) 07/11/2022 Polyneuropathy, unspecified (ICD-10 - G62.9) 07/11/2022 Anxiety disorder, unspecified (ICD-10 - F41.9) 08/08/2022 Essential (primary) hypertension (ICD-10 - I10) 08/08/2022 Anxiety disorder, unspecified (ICD-10 - F41.9) 10/10/2022 Nontraumatic intracerebral hemorrhage, unspecified (ICD-10 - I61.9) 10/10/2022 Essential (primary) hypertension (ICD-10 - I10) 10/25/2022 Anxiety disorder, unspecified (ICD-10 - F41.9) 11/07/2022 Essential (primary) hypertension (ICD-10 - I10) 09/28/2022 Type 2 diabetes mellitus with unspecified complications (ICD-10 - E11.8) 11/07/2022 Cerebral infarction, unspecified (ICD-10 - I63.9) 12/27/2022 Diabetes mellitus du e to underlying condition with diabetic neuropathy, unspecified (ICD-10 - E08.40) 01/24/2023 Diabetes mellitus du e to underlying condition with diabetic neuropathy, unspecified (ICD-10 - E08.40) 01/24/2023 Essential (primary) hypertension (ICD-10 - I10) 12/27/2022 Essential (primary) hypertension (ICD-10 - I10) 12/27/2022 Hyperlipidemia, unspecified (ICD-10 - E78.5) 01/24/2023 Hyperlipidemia, unspecified (ICD-10 - E78.5) 09/28/2022 Anxiety disorder, unspecified (ICD-10 - F41.9) 11/07/2022 Hyperlipidemia, unspecified (ICD-10 - E78.5) 10/10/2022 Type 2 diabetes mellitus with unspecified complications (ICD-10 - E11.8) 08/08/2022 Hyperlipidemia, unspecified (ICD-10 - E78.5) 07/11/2022 Other pulmonary embolism without acute cor pulmonale (ICD-10 - I26.99) 06/04/2022 Anxiety disorder, unspecified (ICD-10 - F41.9) 05/23/2022 Hyperlipidemia, unspecified (ICD-10 - E78.5) 05/04/2022 Dental caries, unspecified (ICD-10 - K02.9) 02/14/2022 Diabetes mellitus du e to underlying condition with diabetic neuropathy, unspecified (ICD-10 - E08.40) 04/27/2022 Anxiety disorder, unspecified (ICD-10 - F41.9) 03/21/2022 Other pulmonary embolism without acute cor pulmonale (ICD-10 - I26.99) 03/07/2022 Other pulmonary embolism without acute cor pulmonale (ICD-10 - I26.99) 02/08/2022 Other pulmonary embolism without acute cor pulmonale (ICD-10 - I26.99) 02/08/2022 Diabetes mellitus du e to underlying condition with diabetic neuropathy, unspecified (ICD-10 - E08.40) 03/07/2022 Hyperlipidemia, unspecified (ICD-10 - E78.5) 03/21/2022 Hyperlipidemia, unspecified (ICD-10 - E78.5) 04/27/2022 Hyperlipidemia, unspecified (ICD-10 - E78.5) 02/14/2022 Anxiety disorder, unspecified (ICD-10 - F41.9) 05/04/2022 Anxiety disorder, unspecified (ICD-10 - F41.9) 05/23/2022 Anxiety disorder, unspecified (ICD-10 - F41.9) 06/04/2022 Other pulmonary embolism without acute cor pulmonale (ICD-10 - I26.99) 07/11/2022 Diarrhea, unspecifie d (ICD-10 - R19.7) 08/08/2022 Diabetes mellitus du e to underlying condition with diabetic neuropathy, unspecified (ICD-10 - E08.40) 10/10/2022 Chronic systolic (congestive) heart failure (ICD-10 - I50.22) 11/07/2022 Chronic systolic (congestive) heart failure (ICD-10 - I50.22) 12/27/2022 Chronic systolic (congestive) heart failure (ICD-10 - I50.22) 01/24/2023 Chronic systolic (congestive) heart failure (ICD-10 - I50.22) 01/24/2023 Anxiety disorder, unspecified (ICD-10 - F41.9) 12/27/2022 Anxiety disorder, unspecified (ICD-10 - F41.9) 11/07/2022 Anxiety disorder, unspecified (ICD-10 - F41.9) 10/10/2022 Orthostatic hypotension (ICD-10 - I95.1) 02/14/2022 Obstructive sleep apnea (adult) (pediatric) (ICD-10 - G47.33) 04/27/2022 Other pulmonary embolism without acute cor pulmonale (ICD-10 - I26.99) 03/21/2022 Chronic systolic (congestive) heart failure (ICD-10 - I50.22) 03/07/2022 Chronic systolic (congestive) heart failure (ICD-10 - I50.22) 02/08/2022 Anxiety disorder, unspecified (ICD-10 - F41.9) 02/08/2022 Obstructive sleep apnea (adult) (pediatric) (ICD-10 - G47.33) 03/07/2022 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) 03/21/2022 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) 02/14/2022 Morbid (severe) obesity due to excess calories (ICD-10 - E66.01) 12/27/2022 Polyneuropathy, unspecified (ICD-10 - G62.9) 11/07/2022 Insomnia, unspecifie d (ICD-10 - G47.00) 01/24/2023 Polyneuropathy, unspecified (ICD-10 - G62.9) 01/24/2023 Other pulmonary embolism without acute cor pulmonale (ICD-10 - I26.99) 02/14/2022 Dietary counseling and surveillance (ICD-10 - Z71.3) 03/21/2022 Morbid (severe) obesity due to excess calories (ICD-10 - E66.01) 03/07/2022 Morbid (severe) obesity due to excess calories (ICD-10 - E66.01) 02/08/2022 Morbid (severe) obesity due to excess calories (ICD-10 - E66.01) 02/08/2022 Dietary counseling and surveillance (ICD-10 - Z71.3) 03/07/2022 Dietary counseling and surveillance (ICD-10 - Z71.3) 03/21/2022 Dietary counseling and surveillance (ICD-10 - Z71.3) 01/24/2023 Encounter for screening for malignant neoplasm of prostate (ICD-10 - Z12.5) 01/24/2023 Encounter for immunization (ICD-10 - Z23) PLAN OF TREATMENT Pending Test Test Name Order Date Echocardiogram 12/25/2021 Electrocardiogram (EKG) 09/20/2017 AST (SGOT) 10/04/2017 ALT (SGPT) 10/04/2017 Stool Culture 01/26/2022 CBC 12/23/2019 Stool Culture -O&P 01/26/2022 BASIC METABOLIC PANEL 02/08/2022 BUN 12/26/2018 C. DIFFICILE TOXIN 01/26/2022 CBC (COMPLETE BLOOD COUNT) 12/17/2019 COMPREHENSIVE METABOLIC PANEL 03/21/2022 COMPREHENSIVE METABOLIC PANEL 02/13/2019 COMPREHENSIVE METABOLIC PANEL 06/15/2021 CREATININE 12/26/2018 HEMOGLOBIN A1C 06/15/2021 HEMOGLOBIN A1C 04/23/2019 HEMOGLOBIN A1C 02/13/2019 LIPID PANEL 02/13/2019 LIPID PANEL 06/15/2021 MICROALBUMIN, URINE 06/15/2021 MICROALBUMIN, URINE 02/13/2019 PROTIME PROFILE 06/29/2021 PROTIME PROFILE 12/26/2018 FECAL WHITE CELLS 01/26/2022 PT/INR 10/04/2017 PT/INR 10/09/2017 PT/INR 05/01/2018 URINALYSIS 07/04/2018 Basic Metabolic Panel 12/23/2019 Chlamydia and Gonorrhea, Urine (APTIMA) 07/04/2018 Hemoglobin A1C 12/23/2019 Hemoglobin A1C 12/19/2017 Hemoglobin A1C 05/01/2018 Future Test Test Name Order Date CULTURE, STOOL 07/12/2022 C. DIFFICILE TOXIN PCR 07/12/2022 COMPREHENSIVE METABOLIC PANEL 08/09/2022 HEMOGLOBIN A1C WITH EST GLUCOSE 08/10/19 23 LIPID PANEL 08/09/2022 MICROALBUMIN, URINE 08/09/2022 Next Appt Details Provider Name:TORRI MOCK , 02/11/2023 01:00:00 PM, [address] [place], [address], Insurance Providers Payer Name Payer Address Payer Phone Subscriber Number Group Number Insured Name Patient Relationship to Insured Coverage Start Date Coverage End Date [facility] [address] [place] [address] [id number] Ayden Bear Self - patient is the insured MEDICATIONS ADMINISTERED Medication Instructions Date of Administration Dosage Notes Vitamin B-12 05/27/2020 MEDICAL (GENERAL) HISTORY Medical History History ICD Code hypertension, benign Dql-Dmdqxgd-olezlkiti diabetes mellitus type 2 Class III obesity Pulmonary embolism Anxiety disorder Venous insufficiency Status post cardiac catheter ization [address] Vidales and according to the patient it was clear Congestive heart failure wit h EF of 35% and ascending aorta 4 cm With mild global hypokinesis on echocardiogram in 2018 MRI of the brain positive fo r microvascular changes and ischemia and question of amyloid in 2019 at [facility] Lactic acidosis acute kidney injury 2021 TAMAR- Talk to Giovanni Nichols Therapist CVA with no residual deficit Surgical History Surgery Date(Month/Year) cholecystectomy cardiac cath Hospitalization History Reason Date(Month/Year) antonio lactic acidosis 2021 blood clot in lung
[2023-02-07 23:02] LABS: INTERNATIONAL NORM RATIO 1.9 (0.9-1.1); Prothrombin Time 23.6 SEC (11.1-13.3)
--- NOTE | 2023-02-07 23:54 | PC.RT ---
Pt refused CPAP at this time because he wears a nasal mask at home and can not tolerate a full face mask. He states there is no one that can bring his in
[2023-02-08 02:21] VITALS: BMI 35.2
--- NOTE | 2023-02-08 07:01 | PC.ADMIT ---
Pt is a 52 year old male admitted to unit at 2014 on 02/07/23 via transfer from [facility]. Pt signed a CV. Pt medical issues are hx of CVA in 07/2022, blood clot, uncontrolled HTN, hypercholesterolemia, Type II DM non insulin, sleep apnea. Pt also has a small open area on left big toe that was bleeding upon exam. Dr Estrada EKG ordered as it was not done prior to transport. Pt denies substance use, etoh use, tobacco use. Pt precipitant to arrival was increased depression, adhedonia and inability to keep up with ADL's, sleeping all the time. Pt stated that he lost work and ability to drive after he had a stroke in July 2022 d/t uncontrolled HTN. Pt is and has not seen his children in years, is depressed and was having SI with a vague plan to run into traffic. After expressing these thoughts to his mother, contacted crisis and they assessed him. Pt was taken to respite and when vitals were taken his bp was found to be too high for them to care for him there and he was sent to ED. After ED treatment pt returned to ED for psych eval. Pt then transferred here. Per crisis eval, pt stated that at times he wants to just punch random people in the face/beat them up to alleviate his anger. Pt states that he doubts he would do it though. Pt wants to achieve medication adjustment and find a therapist. Pt presents as pleasant and a good historian of events. Good eye contact and linear thought process. Provider construction producer Sean notified of admission and orders obtained. Placed on 15 minute safety checks, reports feeling safe on unit.
[2023-02-08 08:18] VITALS: BP 160/91; PULSE 82; TEMP 36.8; O2SAT 96
[2023-02-08 09:00] LABS: MANUAL DIFF FLAG NO
[2023-02-08 09:08] LABS: Basophils Percent Auto 0.6 % (0-2); Eosinophils Absolute Auto 0.3 X10*3/uL (0.0-0.4); Eosinophils Percent Auto 4.1 % (0-4); Hematocrit 40.3 % (42.0-52.0); Hemoglobin 13.3 g/dl (14.0-18.0); Imm Gran Abs Auto 0.02 X10*3/uL (0.00-0.03); Imm Gran Pct Auto 0.3 % (0.0-0.4); Lymphocytes Absolute Auto 1.9 X10*3/uL (1.2-4.9); Lymphocytes Percent Auto 26.3 % (20-40); Mean Corpuscular Volume 81.7 fL (80.0-98.0); Mean Platelet Volume 11.5 fL (9.4-12.4); Monocytes Absolute Auto 0.9 X10*3/uL (0.1-1.2); Neutrophils Absolute Auto 4.1 x10*3/uL (2.0-8.3); Neutrophils Percent Auto 56.7 % (45-73); Platelet Count 168 X10*3/uL (160-400); Red Blood Count 4.93 X10*6/uL (4.60-5.80); Red Cell Distribution Width 14.6 % (11.0-16.0); White Blood Count 7.3 X10*3/uL (4.8-10.8)
--- NOTE | 2023-02-08 09:18 | HO.PSYADMNOT ---
HPI Date of Service: 02/08/23 Chief Complaint: SI Sources of Information: patient interviewed, chart reviewed and crisis/core team assessment reviewed HPI Subjective Notes: Hernandez Warning (given and shows understanding) and Conditional Voluntary Narrative: Mr. Bear is a 52 year-old male with hx of MDD worsened after he had CVA back in August 2022. Pt initially self presented to [facility] and was referred to respite. Pt was sent back to [facility] due to hypertension. Pt then was reevaluated by N and discharged but pt insisted in degree of depression and suicidality. Utox is negative. On the unit, pt reports he has been feeling more depressed since August. He endorses anhedonia, difficulty getting out of bed or doing anything. He reports he is mostly in bed. 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 He was also advised not to drive due to coordination problems but states that recently he was cleared to go back to work again after rehab at [facility]. He reports he continues to have severe depression with no motivation to initiate any activity. He reports fair sleep. No visual or auditory hallucinations. Fair sleep. He reports suicidal ideation and has thought of cutting his wrist with the set of knifes he has at home. He has been on cymbalta mostly for neuropathy even prior to CVA. He was also on lexapro 20mg po daily. Past Psychiatric History: Inpatient: none OP: none Past trials: lexapro, cymbalta Hx of suicide attempts: none Medical Evaluation Reviewed: Yes Diagnostics Vital Signs (24Hr): Vital Signs - 24 hr 02/07/23 20:15 02/08/23 08:18 Temperature 97.9 F 98.3 F Pulse Rate 86 82 Respiratory Rate 18 Blood Pressure 138/92 H 160/91 H Pulse Oximetry 96 96 Oxygen Delivery Method Room Air Room Air BMI result Body Mass Index 35.2 Labs 02/08/23 08:52 02/08/23 08:52 Labs: Laboratory Results - last 48 hr 02/07/23 02/08/23 22:39 08:52 WBC 7.3 RBC 4.93 Hgb 13.3 L Hct 40.3 L MCV 81.7 MCH 27.0 MCHC 33.0 RDW 14.6 Plt Count 168 MPV 11.5 Immature Gran % (Auto) 0.3 Neut % (Auto) 56.7 Lymph % (Auto) 26.3 [place] % (Auto) 12.0 H Eos % (Auto) 4.1 H Baso % (Auto) 0.6 Lymph # (Auto) 1.9 [place] # (Auto) 0.9 Eos # (Auto) 0.3 Baso # (Auto) 0.0 Abs Immat Gran (auto) 0.02 Absolute Neuts (auto) 4.1 Absolute Nucleated RBC 0.000 Nucleated RBC % (auto) 0.0 PT 23.6 H INR 1.9 H Meds/Allergies Meds Home Medications Medication Instructions Recorded Confirmed Type atorvastatin 20 mg tablet 20 mg PO DAILY 02/08/23 02/08/23 History carvedilol 6.25 mg tablet 6.25 mg PO BID 02/08/23 02/08/23 History duloxetine 30 mg capsule,delayed 30 mg PO BID 02/08/23 02/08/23 History release metformin 1,000 mg tablet 1,000 mg PO DAILY 02/08/23 02/08/23 History midodrine 5 mg tablet 5 mg PO BID 02/08/23 02/08/23 History sacubitril 24 mg-valsartan 26 mg 1 tab PO BID 02/08/23 02/08/23 History tablet (Entresto) topiramate 100 mg tablet 100 mg PO BID 02/08/23 02/08/23 History trazodone 100 mg tablet 100 mg PO BEDTIME PRN Insomnia 02/08/23 02/08/23 History warfarin 5 mg tablet 10 - 15 mg PO DAILY 02/08/23 02/08/23 History Allergies Allergies Allergy/AdvReac Type Severity Reaction Status Date / Time vancomycin Allergy Unknown Verified 02/08/23 03:44 Mental Status Exam Mental Status Exam Narrative: Appearance: wearing hospital gown, fair hygiene, in NAD Behavior: none Psychomotor: no agitation or retardation noted Speech: clear, normal rate/rhythm/volume, spontaneous TP: linear TC: feeling depressed, no motivation Mood: depressed Affect: blunted SI: reports SI with plan to cut wrist HI: none Delusions: none VH/AH: none Insight/judgment: fair x 2. Memory/cog: alert, oriented x 3. no formal testing. Assessment & Plan Assessment & Plan (1) MDD (major depressive disorder), recurrent episode, severe: Status: Acute Code(s): F33.2 - Major depressive disorder, recurrent severe without psychotic features Plan Mr. Bear is a 52 year-old male with recent hx of CVA in August and subsequent post-stroke depression including anhedonia, suicidal ideation with plan to cut wrist. Pt had been on cymbalta and lexapro prior to CVA. We discussed switching cymbalta to effexor in hope that may be better antidepressant with some degree of neuropathic relief. I suggest to discontinue for now lexapro. If effexor not effective then consider switching to another antidepressant. He may even benefit from stimulant- keeping in mind that after stroke he is more prone to seizures. TCA may be option but pt also has extensive cardiac history, which would limit dose or may not be tolerated all together. or considering monotherapy of antidepressant with low dose of lithium. PLAN 1. admit to , CV, 15 minutes checks for safety 2. start effexor 37.5mg po daily, can go up faster as he was on cymbalta 30mg po BID. stop lexapro. 3. Obtain collateral information 4. Aftercare planning. Patient educated on: diagnosis and medication risk/benefits Reason for continued inpatient stay Substantial Risk for: harm to self Statement Statement: I have reviewed the history and physical and performed a pertinent examination on my patient. No changes have occurred unless specified. If the History and Physical was not performed prior to admission, the Hospitalist's service will be consulted for completing the admission physical. Time Spent With Patient Time: Total time managing care of this patient today ____ minutes.
[2023-02-08 09:19] LABS: Estimated Average Glucose 117 mg/dL; Hemoglobin A1c % 5.7 % (<6.0)
--- NOTE | 2023-02-08 09:22 | PC.NURSE ---
Pt refused flu vaccine at this time.
[2023-02-08 09:35] LABS: Alanine Aminotransferase 19 U/L (0-40); Albumin Level 3.6 g/dL (3.5-5.0); Alkaline Phosphatase 72 U/L (39-117); Anion Gap 11 (12-20); Aspartate Amino Transferase 15 U/L (5-37); Bilirubin Direct 0.2 mg/dL (0.0-0.5); Bilirubin Total 0.6 mg/dL (0.0-1.0); Blood Urea Nitrogen 35 mg/dL (9-16); Calcium 9.3 mg/dL (8.4-10.2); Carbon Dioxide 23 mmol/L (22-29); Chloride 113 mmol/L (96-108); Cholesterol 121 mg/dL (<200); Creatinine Clr Calc Pharmacy 109.4; Estimated Glomerular Filt Rate > 60; Glucose Fasting 117 mg/dL (60-99); HDL Cholesterol 26 mg/dL (>40); LDL Cholesterol Calculated 62 mg/dL (<100); Potassium 3.8 mmol/L (3.3-5.1); Sodium 143 mmol/L (135-145); Total Protein 6.3 g/dL (6.5-8.0); Triglycerides 168 mg/dL (<150)
[2023-02-08 09:53] LABS: Free T4 (Free Thyroxine) 0.95 ng/dL (0.71-1.85); Thyroid Stimulating Hormone 1.41 uIU/mL (0.32-4.0)
[2023-02-08 10:13] LABS: Folate 7.3 ng/mL (> or = 4.0)
[2023-02-08 10:31] LABS: Vitamin B12 375 pg/mL (200-900)
[2023-02-08 12:11] VITALS: BP 169/93; PULSE 73
[2023-02-08] MEDS: Venlafaxine HCl ER 37.5 MG CAP.ER.24H PO (12:18)
[2023-02-08] MEDS: Sacubitril/Valsartan 24/26 1 TAB TABLET PO ×2 (12:18→20:53)
[2023-02-08] MEDS: Topiramate 100 MG TABLET PO ×2 (12:19→20:53)
[2023-02-08] MEDS: metFORMIN HCl 1,000 MG TABLET 1000 MG PO (12:19)
[2023-02-08] MEDS: carvediloL 6.25 MG TABLET PO ×2 (12:19→20:53)
[2023-02-08] MEDS: Midodrine HCl 5 MG TABLET PO ×2 (12:20→20:53)
--- NOTE | 2023-02-08 12:59 | ECG_ITS ---
Test Reason : uncontrolled htn, hx stroke Blood Pressure : / mmHG Vent. Rate : 071 BPM Atrial Rate : 071 BPM P-R Int : 182 ms QRS Dur : 134 ms QT Int : 414 ms P-R-T Axes : 054 -64 081 degrees QTc Int : 449 ms Normal sinus rhythm Left bundle branch block Abnormal ECG No previous ECGs available Referred By: Rabia Fritz Electronically Signed By:AMILCAR BERNSTEIN MD
--- NOTE | 2023-02-08 14:22 | HO.PM.IMCN ---
History of Present Illness Data of Consult Service Date: 02/08/23 Primary Care Provider: Gaurang Valdez MD HPI Reason for consult: Admission H&P Pt is a 52-year-old male with a PMH significant for?HTN, HLD, [id number] diabetes type 2, CHF unspecified, hx of PE from right leg DVT on warfarin, orthostatic hypotension, anxiety, and depression who is admitted to psychiatry unit for increasing depression with SI with plan of running into traffic and HI with thoughts randomly beating up people in the parking lot. Patient [place] [facility] initially sent to [place] but returned less than 1 day later due to HTN of 160/112. Medical consult for admission H&P. Patient seen and evaluated at bedside. Patient denies any acute medical complaints at this time. Denies any chest pain/pressure, palpitations. No shortness of breath. Denies headache, dizziness, lightheadedness. No acute vision changes. Denies fever, chills, nausea, vomiting, abdominal pain. No diarrhea. Patient denies any significant substance use: No alcohol, smoking, illicit substances. Review of Systems Review of Systems: Patient has no acute complaints at this time [facility] Social History Household Members: None Housing: Apartment Do you presently have visiting nurse or other home services: No Patient Tobacco Use Status: Never used Tobacco e-Cigarette/Vaping Use: Never Used Use of substances other than those prescribed or required for medical reasons: No Currently Displaying Signs/Symptoms of Drug Intoxication Withdrawal: No Advance Directives: No Advance Directives Information Provided: No Do you have thoughts of harming others: None Do you have a plan to hurt others: No Plan Recently lost weight without trying: No Eating poorly because of decreased appetite: No Nutrition Risks: No Nutritional Risk service: No Sexual orientation: Straight/Heterosexual Meds Allergies Allergy/AdvReac Type Severity Reaction Status Date / Time vancomycin Allergy Unknown Verified 02/08/23 03:44 Active Medications: Current Medications Acetaminophen (Acetaminophen 325 Mg Tablet) 650 mg PO Q6H PRN PRN Reason: Headache/Pain Mild Scale (1-3) Al Hydroxide/Mg Hydroxide (Magnesium Hydrox/Alum Hydrox 30 Ml Oral.Susp) 30 ml PO Q6H PRN PRN Reason: Heartburn/Nausea Atorvastatin Calcium (Atorvastatin Calcium 20 Mg Tablet) 20 mg PO BEDTIME [facility] Carvedilol (Carvedilol 6.25 Mg Tablet) 6.25 mg PO BID [facility]; Protocol Last Admin: 02/08/23 12:19 Dose: 6.25 mg Hydroxyzine HCl (Hydroxyzine Hcl 25 Mg Tablet) 25 mg PO Q6H PRN PRN Reason: Anxiety Magnesium Hydroxide (Milk Of Magnesia 30 Ml Oral.Susp) 30 ml PO DAILY PRN PRN Reason: Constipation Metformin HCl (Metformin Hcl 1,000 Mg Tablet) 1,000 mg PO DAILY [facility] Last Admin: 02/08/23 12:19 Dose: 1,000 mg Midodrine (Midodrine Hcl 5 Mg Tablet) 5 mg PO BID [facility] Last Admin: 02/08/23 12:20 Dose: 5 mg Nicotine Polacrilex (Nicotine Polacrilex 2 Mg Gum) 4 mg BUCCAL Q2H PRN PRN Reason: Nicotine Cravings Sacubitril/Valsartan (Sacubitril/Valsartan 1 Tab Tablet) 1 tab PO BID [facility]; Protocol Last Admin: 02/08/23 12:18 Dose: 1 tab Topiramate (Topiramate 100 Mg Tablet) 100 mg PO BID [facility] Last Admin: 02/08/23 12:19 Dose: 100 mg Trazodone HCl (Trazodone Hcl 50 Mg Tablet) 50 mg PO BEDTIME PRN PRN Reason: Insomnia Venlafaxine HCl (Venlafaxine Hcl Er 37.5 Mg Cap.Er.24h) 37.5 mg PO DAILY [facility] Last Admin: 02/08/23 12:18 Dose: 37.5 mg Home Medications Medication Instructions Recorded Confirmed Last Taken Type atorvastatin 20 mg tablet 20 mg PO DAILY 02/08/23 02/08/23 Unknown History carvedilol 6.25 mg tablet 6.25 mg PO BID 02/08/23 02/08/23 02/07/23 09:45 History duloxetine 30 mg capsule,delayed 30 mg PO BID 02/08/23 02/08/23 02/07/23 09:50 History release metformin 1,000 mg tablet 1,000 mg PO DAILY 02/08/23 02/08/23 02/07/23 09:50 History midodrine 5 mg tablet 5 mg PO BID 02/08/23 02/08/23 Unknown History sacubitril 24 mg-valsartan 26 mg 1 tab PO BID 02/08/23 02/08/23 Unknown History tablet (Entresto) topiramate 100 mg tablet 100 mg PO BID 02/08/23 02/08/23 02/07/23 09:50 History trazodone 100 mg tablet 100 mg PO BEDTIME PRN Insomnia 02/08/23 02/08/23 Unknown History warfarin 5 mg tablet 10 - 15 mg PO DAILY 02/08/23 02/08/23 02/05/23 History Physical Exam Vital Signs and Narrative: Vital Signs: Last Vital Signs Temp 98.3 F 02/08/23 08:18 Pulse 73 02/08/23 12:11 Resp 18 02/07/23 20:15 BP 169/93 H 02/08/23 12:11 Pulse Ox 96 02/08/23 08:18 O2 Del Method Room Air 02/08/23 08:18 BMI result Body Mass Index 35.2 Constitutional: Alert, in no acute distress. Mental Status: Oriented to person, place and time. Eyes: Pupils are equal, round, and reactive to light. Ear, Nose, and Throat: Oropharynx clear, mucous membranes moist. Ears and nose without deformities. Trachea midline. Respiratory: Clear to auscultation bilaterally. No wheezing, rales, or rhonchi. Cardiovascular: S1, S2 regular. No murmurs, rubs, or gallops. Gastrointestinal: Abdomen soft, non-tender, non-distended. Normal bowel sounds. Neurologic: Cranial nerves II-XII are grossly intact bilaterally. No focal neurological deficits. Moves all extremities spontaneously. Skin: No rashes or lesions noted. Musculoskeletal: No cyanosis or clubbing. Extremities: No edema. Psychiatric: Normal mood and affect. Results Labs 02/08/23 08:52 02/08/23 08:52 Labs: Laboratory Results - last 24 hr 02/07/23 02/08/23 02/08/23 22:39 08:52 08:53 MCV 81.7 MCH 27.0 MCHC 33.0 RDW 14.6 Plt Count 168 MPV 11.5 Immature Gran % (Auto) 0.3 Neut % (Auto) 56.7 Lymph % (Auto) 26.3 [place] % (Auto) 12.0 H Eos % (Auto) 4.1 H Baso % (Auto) 0.6 Lymph # (Auto) 1.9 [place] # (Auto) 0.9 Eos # (Auto) 0.3 Baso # (Auto) 0.0 Abs Immat Gran (auto) 0.02 Absolute Neuts (auto) 4.1 Absolute Nucleated RBC 0.000 Nucleated RBC % (auto) 0.0 PT 23.6 H INR 1.9 H Anion Gap 11 L Estim Creat Clear Calc 109.4 Estimated GFR > 60 Fasting Glucose 117 H Estimat Average Glucose 117 Hemoglobin A1c % 5.7 Calcium 9.3 Total Bilirubin 0.6 Direct Bilirubin 0.2 AST 15 ALT 19 Alkaline Phosphatase 72 Total Protein 6.3 L Albumin 3.6 Triglycerides 168 H Cholesterol 121 LDL Cholesterol, Calc 62 HDL Cholesterol 26 L Vitamin B12 375 Folate 7.3 TSH 1.41 Free T4 0.95 Assessment and Plan (1) Medical clearance for psychiatric admission: Status: Acute Plan Pt is a 52-year-old male with a PMH significant for?HTN, HLD, [id number] diabetes type 2, CHF unspecified, hx of PE from right leg DVT on warfarin, orthostatic hypotension, anxiety, and depression who is admitted to psychiatry unit for increasing depression with SI with plan of running into traffic and HI with thoughts randomly beating up people in the parking lot. Patient [place] [facility] [place] sent to resp[place] but returned less than 1 day later due to HTN of 160/112. Medical consult for admission H&P. Mood disorder Plan as per Psychiatry HTN Patient with elevated HTN at respite Currently slightly elevated at 160/91 Continue home antihypertensives: Carvedilol, Entresto Orthostatic hypotension Continue midodrine Hx of right leg DVT with PE Continue warfarin, will clarify dosing with pharmacy Monitor INR daily with goal between 2.0-3.0 Flv-[id number]-kwuaocjoa diabetes type 2 Continue metformin Diabetic diet HLD Continue statin Thank you for allowing us to participate in the care of this patient. Will contiue to follow for now to monitor INR and BP. Please let us know if there are any acute complaints or questions. Time Spent With Patient Time: Total time managing care of this patient today ____ minutes.
[2023-02-08] MEDS: Warfarin Sodium 10 MG TABLET PO (18:11)
[2023-02-08 19:22] LABS: INTERNATIONAL NORM RATIO 1.5 (0.9-1.1); Prothrombin Time 18.4 SEC (11.1-13.3)
[2023-02-08 20:10] VITALS: BP 185/89; PULSE 69; RESP 18; TEMP 36.5; O2SAT 98
[2023-02-08] MEDS: Atorvastatin Calcium 20 MG TABLET PO (20:53)
[2023-02-09 09:00] VITALS: BP 160/102; PULSE 72; RESP 16; TEMP 36.6; O2SAT 98
--- NOTE | 2023-02-09 09:02 | HE.PHANOTE ---
RE: INR Phlebotomy called me @0900 to let me know patient is refusing blood draw, order in for daily. Follow up tomorrow
[2023-02-09] MEDS: metFORMIN HCl 1,000 MG TABLET 1000 MG PO (09:03)
[2023-02-09] MEDS: carvediloL 6.25 MG TABLET PO ×2 (09:03→20:56)
[2023-02-09] MEDS: Sacubitril/Valsartan 24/26 1 TAB TABLET PO ×2 (09:04→20:56)
[2023-02-09] MEDS: Topiramate 100 MG TABLET PO ×2 (09:04→20:56)
[2023-02-09] MEDS: Venlafaxine HCl ER 37.5 MG CAP.ER.24H PO (09:04)
[2023-02-09 09:23] LABS: Glucose, Whole Blood 147 mg/dL (60-115)
--- NOTE | 2023-02-09 10:20 | P.PNPSI_ITS ---
Subjective Subjective Date of Service: 02/09/23 Reason For Visit: SI Subjective Notes: Conditional Voluntary Interim History: Patient was seen and discussed in rounds today. Records and plans were reviewed. He continues to be isolative but a little more visible. Minimal social interactions but improved. Sleeping 7 hours. His midodrine was held because his blood pressure appears to be higher. No complaints, side effects. No side effects to Effexor. No changes were made today Review of Systems Review of Systems Yes all other systems are reviewed and are negative Diagnostics Vital Signs (24Hr): Vital Signs - 24 hr 02/08/23 12:11 02/08/23 20:10 Temperature 97.7 F Pulse Rate 73 69 Respiratory Rate 18 Blood Pressure 169/93 H 185/89 H Pulse Oximetry 98 Oxygen Delivery Method Room Air BMI result Body Mass Index 35.2 Labs 02/08/23 08:52 02/08/23 08:52 Labs: Laboratory Results - last 48 hr 02/07/23 02/08/23 02/08/23 22:39 08:52 08:53 WBC 7.3 RBC 4.93 Hgb 13.3 L Hct 40.3 L MCV 81.7 MCH 27.0 MCHC 33.0 RDW 14.6 Plt Count 168 MPV 11.5 Immature Gran % (Auto) 0.3 Neut % (Auto) 56.7 Lymph % (Auto) 26.3 [place] % (Auto) 12.0 H Eos % (Auto) 4.1 H Baso % (Auto) 0.6 Lymph # (Auto) 1.9 [place] # (Auto) 0.9 Eos # (Auto) 0.3 Baso # (Auto) 0.0 Abs Immat Gran (auto) 0.02 Absolute Neuts (auto) 4.1 Absolute Nucleated RBC 0.000 Nucleated RBC % (auto) 0.0 PT 23.6 H INR 1.9 H Sodium 143 Potassium 3.8 Chloride 113 H Carbon Dioxide 23 Anion Gap 11 L BUN 35 H Creatinine 0.89 Estim Creat Clear Calc 109.4 Estimated GFR > 60 POC Glucose Fasting Glucose 117 H Estimat Average Glucose 117 Hemoglobin A1c % 5.7 Calcium 9.3 Total Bilirubin 0.6 Direct Bilirubin 0.2 AST 15 ALT 19 Alkaline Phosphatase 72 Total Protein 6.3 L Albumin 3.6 Triglycerides 168 H Cholesterol 121 LDL Cholesterol, Calc 62 HDL Cholesterol 26 L Vitamin B12 375 Folate 7.3 TSH 1.41 Free T4 0.95 02/08/23 02/09/23 18:55 09:18 WBC RBC Hgb Hct MCV MCH MCHC RDW Plt Count MPV Immature Gran % (Auto) Neut % (Auto) Lymph % (Auto) [place] % (Auto) Eos % (Auto) Baso % (Auto) Lymph # (Auto) [place] # (Auto) Eos # (Auto) Baso # (Auto) Abs Immat Gran (auto) Absolute Neuts (auto) Absolute Nucleated RBC Nucleated RBC % (auto) PT 18.4 H D INR 1.5 H Sodium Potassium Chloride Carbon Dioxide Anion Gap BUN Creatinine Estim Creat Clear Calc Estimated GFR POC Glucose 147 H Fasting Glucose Estimat Average Glucose Hemoglobin A1c % Calcium Total Bilirubin Direct Bilirubin AST ALT Alkaline Phosphatase Total Protein Albumin Triglycerides Cholesterol LDL Cholesterol, Calc HDL Cholesterol Vitamin B12 Folate TSH Free T4 Medications Medications Current Medications Acetaminophen (Acetaminophen 325 Mg Tablet) 650 mg PO Q6H PRN PRN Reason: Headache/Pain Mild Scale (1-3) Al Hydroxide/Mg Hydroxide (Magnesium Hydrox/Alum Hydrox 30 Ml Oral.Susp) 30 ml PO Q6H PRN PRN Reason: Heartburn/Nausea Atorvastatin Calcium (Atorvastatin Calcium 20 Mg Tablet) 20 mg PO BEDTIME [facility] Last Admin: 02/08/23 20:53 Dose: 20 mg Carvedilol (Carvedilol 6.25 Mg Tablet) 6.25 mg PO BID [facility]; Protocol Last Admin: 02/09/23 09:03 Dose: 6.25 mg Hydroxyzine HCl (Hydroxyzine Hcl 25 Mg Tablet) 25 mg PO Q6H PRN PRN Reason: Anxiety Magnesium Hydroxide (Milk Of Magnesia 30 Ml Oral.Susp) 30 ml PO DAILY PRN PRN Reason: Constipation Metformin HCl (Metformin Hcl 1,000 Mg Tablet) 1,000 mg PO DAILY [facility] Last Admin: 02/09/23 09:03 Dose: 1,000 mg Midodrine (Midodrine Hcl 5 Mg Tablet) 5 mg PO BID [facility] Last Admin: 02/08/23 20:53 Dose: 5 mg Nicotine Polacrilex (Nicotine Polacrilex 2 Mg Gum) 4 mg BUCCAL Q2H PRN PRN Reason: Nicotine Cravings Sacubitril/Valsartan (Sacubitril/Valsartan 1 Tab Tablet) 1 tab PO BID [facility]; Protocol Last Admin: 02/09/23 09:04 Dose: 1 tab Topiramate (Topiramate 100 Mg Tablet) 100 mg PO BID [facility] Last Admin: 02/09/23 09:04 Dose: 100 mg Trazodone HCl (Trazodone Hcl 50 Mg Tablet) 50 mg PO BEDTIME PRN PRN Reason: Insomnia Venlafaxine HCl (Venlafaxine Hcl Er 37.5 Mg Cap.Er.24h) 37.5 mg PO DAILY [facility] Last Admin: 02/09/23 09:04 Dose: 37.5 mg Warfarin Sodium (Warfarin Sodium 10 Mg Tablet) 10 mg PO DAILY@1800 [facility] Last Admin: 02/08/23 18:11 Dose: 10 mg Allergies Allergies Allergy/AdvReac Type Severity Reaction Status Date / Time vancomycin Allergy Unknown Verified 02/08/23 03:44 Assessment & Plan Assessment & Plan (1) MDD (major depressive disorder), recurrent episode, severe: Status: Acute Code(s): F33.2 - Major depressive disorder, recurrent severe without psychotic features Plan Mr. Bear is a 52 year-old male with recent hx of CVA in August and subsequent post-stroke depression including anhedonia, suicidal ideation with plan to cut wrist. Pt had been on cymbalta and lexapro prior to CVA. We discussed switching cymbalta to effexor in hope that may be better antidepressant with some degree of neuropathic relief. I suggest to discontinue for now lexapro. If effexor not effective then consider switching to another antidepressant. He may even benefit from stimulant- keeping in mind that after stroke he is more prone to seizures. TCA may be option but pt also has extensive cardiac history, which would limit dose or may not be tolerated all together. or considering monotherapy of antidepressant with low dose of lithium. PLAN 1. admit to M3, CV, 15 minutes checks for safety 2. start effexor 37.5mg po daily, can go up faster as he was on cymbalta 30mg po BID. stop lexapro. 3. Obtain collateral information 4. Aftercare planning. 02/09: Continue current regimen and plans Reason for continued inpatient stay Substantial Risk for: med/psych decompensation Time Spent With Patient Time: Total time managing care of this patient today ____ minutes.
[2023-02-09 16:08] LABS: INTERNATIONAL NORM RATIO 1.4 (0.9-1.1); Prothrombin Time 16.5 SEC (11.1-13.3)
[2023-02-09] MEDS: Warfarin Sodium 10 MG TABLET PO (17:33)
[2023-02-09 17:52] LABS: Glucose, Whole Blood 144 mg/dL (60-115)
[2023-02-09 20:30] VITALS: BP 195/110; PULSE 77; RESP 18; TEMP 36.9; O2SAT 98
[2023-02-09] MEDS: Atorvastatin Calcium 20 MG TABLET PO (20:56)
[2023-02-09 21:40] VITALS: BP 157/94; PULSE 67
--- NOTE | 2023-02-10 03:00 | PC.NURSE ---
Ayden is noted to have been visible with minimal interaction with peers throughout the evening. he is pleasant and cooperative upon approach. he denies suicidal/homicidal ideation and auditory/visual hallucinations however he endorses depression and anxiety /. encourage groups, monitor for safety, continue Plan of Care
[2023-02-10 08:10] LABS: Glucose, Whole Blood 103 mg/dL (60-115)
[2023-02-10 08:20] VITALS: BP 138/90; PULSE 78; RESP 16; TEMP 36.2; O2SAT 98
[2023-02-10] MEDS: Sacubitril/Valsartan 24/26 1 TAB TABLET PO ×2 (08:42→21:20)
[2023-02-10] MEDS: carvediloL 6.25 MG TABLET PO ×2 (08:42→21:19)
[2023-02-10] MEDS: Venlafaxine HCl ER 37.5 MG CAP.ER.24H PO ×2 (08:42→10:12)
[2023-02-10] MEDS: Topiramate 100 MG TABLET PO ×2 (08:42→21:19)
[2023-02-10] MEDS: metFORMIN HCl 1,000 MG TABLET 1000 MG PO (08:43)
[2023-02-10 08:44] LABS: INTERNATIONAL NORM RATIO 1.3 (0.9-1.1); Prothrombin Time 16.2 SEC (11.1-13.3)
--- NOTE | 2023-02-10 09:19 | HO.PSYCHPN ---
Subjective Subjective Date of Service: 02/09/23 Reason For Visit: SI Subjective Notes: Conditional Voluntary Interim History: Patient was seen and discussed in rounds today. Records and plans were reviewed. He is mostly isolative and states that he did not sleep well which has to do with not having his CPAP machine here and does not want to use the hospitals. His blood pressure last evening was a little high but after his medications it came down. Continues to have a lot of anxiety and depression. I increased the Effexor to 75 mg Review of Systems Review of Systems Yes all other systems are reviewed and are negative Mental Status Exam Mental Status Exam Narrative: In today's visit he is alert, oriented and pleasant. Soft-spoken speech. Moderate eye contact. Affect is appropriate, constricted and flat. No acute signs of psychosis. No SI. Cognitively he is generally intact with slow thought processes. Judgment is intact Diagnostics Vital Signs (24Hr): Vital Signs - 24 hr 02/09/23 20:30 02/09/23 21:40 Temperature 98.5 F Pulse Rate 77 67 Respiratory Rate 18 Blood Pressure 195/110 H 157/94 H Pulse Oximetry 98 Oxygen Delivery Method Room Air BMI result Body Mass Index 35.2 Labs 02/08/23 08:52 02/08/23 08:52 Labs: Laboratory Results - last 48 hr 02/08/23 02/08/23 02/08/23 08:52 08:53 18:55 PT 18.4 H D INR 1.5 H Sodium 143 Potassium 3.8 Chloride 113 H Carbon Dioxide 23 Anion Gap 11 L BUN 35 H Creatinine 0.89 Estim Creat Clear Calc 109.4 Estimated GFR > 60 POC Glucose Fasting Glucose 117 H Estimat Average Glucose 117 Hemoglobin A1c % 5.7 Calcium 9.3 Total Bilirubin 0.6 Direct Bilirubin 0.2 AST 15 ALT 19 Alkaline Phosphatase 72 Total Protein 6.3 L Albumin 3.6 Triglycerides 168 H Cholesterol 121 LDL Cholesterol, Calc 62 HDL Cholesterol 26 L Vitamin B12 375 Folate 7.3 TSH 1.41 Free T4 0.95 02/09/23 02/09/23 02/09/23 09:18 15:52 17:49 PT 16.5 H INR 1.4 H Sodium Potassium Chloride Carbon Dioxide Anion Gap BUN Creatinine Estim Creat Clear Calc Estimated GFR POC Glucose 147 H 144 H Fasting Glucose Estimat Average Glucose Hemoglobin A1c % Calcium Total Bilirubin Direct Bilirubin AST ALT Alkaline Phosphatase Total Protein Albumin Triglycerides Cholesterol LDL Cholesterol, Calc HDL Cholesterol Vitamin B12 Folate TSH Free T4 02/10/23 02/10/23 08:04 08:13 PT 16.2 H INR 1.3 H Sodium Potassium Chloride Carbon Dioxide Anion Gap BUN Creatinine Estim Creat Clear Calc Estimated GFR POC Glucose 103 Fasting Glucose Estimat Average Glucose Hemoglobin A1c % Calcium Total Bilirubin Direct Bilirubin AST ALT Alkaline Phosphatase Total Protein Albumin Triglycerides Cholesterol LDL Cholesterol, Calc HDL Cholesterol Vitamin B12 Folate TSH Free T4 Medications Medications Current Medications Acetaminophen (Acetaminophen 325 Mg Tablet) 650 mg PO Q6H PRN PRN Reason: Headache/Pain Mild Scale (1-3) Al Hydroxide/Mg Hydroxide (Magnesium Hydrox/Alum Hydrox 30 Ml Oral.Susp) 30 ml PO Q6H PRN PRN Reason: Heartburn/Nausea Atorvastatin Calcium (Atorvastatin Calcium 20 Mg Tablet) 20 mg PO BEDTIME [facility] Last Admin: 02/09/23 20:56 Dose: 20 mg Carvedilol (Carvedilol 6.25 Mg Tablet) 6.25 mg PO BID [facility]; Protocol Last Admin: 02/10/23 08:42 Dose: 6.25 mg Hydroxyzine HCl (Hydroxyzine Hcl 25 Mg Tablet) 25 mg PO Q6H PRN PRN Reason: Anxiety Magnesium Hydroxide (Milk Of Magnesia 30 Ml Oral.Susp) 30 ml PO DAILY PRN PRN Reason: Constipation Metformin HCl (Metformin Hcl 1,000 Mg Tablet) 1,000 mg PO DAILY [facility] Last Admin: 02/10/23 08:43 Dose: 1,000 mg Midodrine (Midodrine Hcl 5 Mg Tablet) 5 mg PO BID [facility] Last Admin: 02/08/23 20:53 Dose: 5 mg Nicotine Polacrilex (Nicotine Polacrilex 2 Mg Gum) 4 mg BUCCAL Q2H PRN PRN Reason: Nicotine Cravings Sacubitril/Valsartan (Sacubitril/Valsartan 1 Tab Tablet) 1 tab PO BID [facility]; Protocol Last Admin: 02/10/23 08:42 Dose: 1 tab Topiramate (Topiramate 100 Mg Tablet) 100 mg PO BID [facility] Last Admin: 02/10/23 08:42 Dose: 100 mg Trazodone HCl (Trazodone Hcl 50 Mg Tablet) 50 mg PO BEDTIME PRN PRN Reason: Insomnia Venlafaxine HCl (Venlafaxine Hcl Er 37.5 Mg Cap.Er.24h) 37.5 mg PO DAILY [facility] Last Admin: 02/10/23 08:42 Dose: 37.5 mg Warfarin Sodium (Warfarin Sodium 10 Mg Tablet) 10 mg PO DAILY@1800 [facility] Last Admin: 02/09/23 17:33 Dose: 10 mg Allergies Allergies Allergy/AdvReac Type Severity Reaction Status Date / Time dapagliflozin Allergy Unknown Verified 02/09/23 17:54 vancomycin Allergy Unknown Verified 02/08/23 03:44 Assessment & Plan Assessment & Plan (1) MDD (major depressive disorder), recurrent episode, severe: Status: Acute Code(s): F33.2 - Major depressive disorder, recurrent severe without psychotic features Plan Mr. Bear is a 52 year-old male with recent hx of CVA in August and subsequent post-stroke depression including anhedonia, suicidal ideation with plan to cut wrist. Pt had been on cymbalta and lexapro prior to CVA. We discussed switching cymbalta to effexor in hope that may be better antidepressant with some degree of neuropathic relief. I suggest to discontinue for now lexapro. If effexor not effective then consider switching to another antidepressant. He may even benefit from stimulant- keeping in mind that after stroke he is more prone to seizures. TCA may be option but pt also has extensive cardiac history, which would limit dose or may not be tolerated all together. or considering monotherapy of antidepressant with low dose of lithium. PLAN 1. admit to M3, CV, 15 minutes checks for safety 2. start effexor 37.5mg po daily, can go up faster as he was on cymbalta 30mg po BID. stop lexapro. 3. Obtain collateral information 4. Aftercare planning. 02/09: Continue current regimen and plans 02/10: Continue current plans and regimen. I increased the Effexor to 75 mg Patient educated on: medication risk/benefits Reason for continued inpatient stay Substantial Risk for: med/psych decompensation Time Spent With Patient Time: Total time managing care of this patient today ____ minutes.
--- NOTE | 2023-02-10 10:46 | PC.NURSE ---
Concerns r/t pt's INR low and trending down relayed to Dr Sarmiento, Dr Hampton and [place]ana [facility].
--- NOTE | 2023-02-10 10:53 | PM.EVENT ---
Event Note Date of Service: 02/10/23 Event Note: on coumadin for pe, dvt. INR 1.3, received 10 mg last 2 days, increase to 15 today and continue daily INR Time Spent With Patient Time: Total time managing care of this patient today ____ minutes.
[2023-02-10] MEDS: Warfarin Sodium 10 MG TABLET 15 MG PO (17:37)
[2023-02-10 17:39] LABS: Glucose, Whole Blood 162 mg/dL (60-115)
[2023-02-10 21:09] VITALS: BP 141/70; PULSE 88; TEMP 37.7; O2SAT 97
[2023-02-10] MEDS: Atorvastatin Calcium 20 MG TABLET PO (21:18)
[2023-02-10 23:30] VITALS: TEMP 37.1
[2023-02-11 07:41] VITALS: BP 147/97; PULSE 76; RESP 16; TEMP 36.7; O2SAT 98
[2023-02-11 08:08] LABS: Glucose, Whole Blood 131 mg/dL (60-115)
[2023-02-11] MEDS: metFORMIN HCl 1,000 MG TABLET 1000 MG PO (08:15)
[2023-02-11] MEDS: Sacubitril/Valsartan 24/26 1 TAB TABLET PO ×2 (08:15→20:12)
[2023-02-11] MEDS: carvediloL 6.25 MG TABLET PO ×2 (08:16→20:12)
[2023-02-11] MEDS: Topiramate 100 MG TABLET PO ×2 (08:16→22:12)
[2023-02-11 08:55] LABS: INTERNATIONAL NORM RATIO 1.4 (0.9-1.1); Prothrombin Time 17.2 SEC (11.1-13.3)
--- NOTE | 2023-02-11 09:11 | HO.PSYCHPN ---
Documented by User: Rabia Fritz 02/11/23 19:08 Subjective Subjective Reason For Visit: SI Diagnostics Vital Signs (24Hr): Vital Signs - 24 hr 02/10/23 21:09 02/10/23 23:30 02/11/23 07:41 Temperature 99.9 F 98.7 F 98.1 F Pulse Rate 88 76 Respiratory Rate 16 Blood Pressure 141/70 H 147/97 H Pulse Oximetry 97 98 Oxygen Delivery Method Room Air Room Air BMI result Body Mass Index 35.2 Labs 02/08/23 08:52 02/08/23 08:52 Labs: Laboratory Results - last 48 hr 02/09/23 02/09/23 02/09/23 09:18 15:52 17:49 PT 16.5 H INR 1.4 H POC Glucose 147 H 144 H 02/10/23 02/10/23 02/10/23 08:04 08:13 17:34 PT 16.2 H INR 1.3 H POC Glucose 103 162 H 02/11/23 02/11/23 08:02 08:29 PT 17.2 H INR 1.4 H POC Glucose 131 H Medications Medications Current Medications Acetaminophen (Acetaminophen 325 Mg Tablet) 650 mg PO Q6H PRN PRN Reason: Headache/Pain Mild Scale (1-3) Al Hydroxide/Mg Hydroxide (Magnesium Hydrox/Alum Hydrox 30 Ml Oral.Susp) 30 ml PO Q6H PRN PRN Reason: Heartburn/Nausea Atorvastatin Calcium (Atorvastatin Calcium 20 Mg Tablet) 20 mg PO BEDTIME [facility] Last Admin: 02/10/23 21:18 Dose: 20 mg Carvedilol (Carvedilol 6.25 Mg Tablet) 6.25 mg PO BID [facility]; Protocol Last Admin: 02/11/23 08:16 Dose: 6.25 mg Hydroxyzine HCl (Hydroxyzine Hcl 25 Mg Tablet) 25 mg PO Q6H PRN PRN Reason: Anxiety Magnesium Hydroxide (Milk Of Magnesia 30 Ml Oral.Susp) 30 ml PO DAILY PRN PRN Reason: Constipation Metformin HCl (Metformin Hcl 1,000 Mg Tablet) 1,000 mg PO DAILY [facility] Last Admin: 02/11/23 08:15 Dose: 1,000 mg Midodrine (Midodrine Hcl 5 Mg Tablet) 5 mg PO BID [facility] Last Admin: 02/08/23 20:53 Dose: 5 mg Nicotine Polacrilex (Nicotine Polacrilex 2 Mg Gum) 4 mg BUCCAL Q2H PRN PRN Reason: Nicotine Cravings Sacubitril/Valsartan (Sacubitril/Valsartan 1 Tab Tablet) 1 tab PO BID [facility]; Protocol Last Admin: 02/11/23 08:15 Dose: 1 tab Topiramate (Topiramate 100 Mg Tablet) 100 mg PO BID [facility] Last Admin: 02/11/23 08:16 Dose: 100 mg Trazodone HCl (Trazodone Hcl 50 Mg Tablet) 50 mg PO BEDTIME PRN PRN Reason: Insomnia Warfarin Sodium (Warfarin Sodium 10 Mg Tablet) 15 mg PO DAILY@1800 [facility] Last Admin: 02/10/23 17:37 Dose: 15 mg Allergies Allergies Allergy/AdvReac Type Severity Reaction Status Date / Time dapagliflozin Allergy Unknown Verified 02/09/23 17:54 vancomycin Allergy Unknown Verified 02/08/23 03:44 Assessment & Plan Assessment & Plan (1) MDD (major depressive disorder), recurrent episode, severe: Status: Acute Code(s): F33.2 - Major depressive disorder, recurrent severe without psychotic features Plan Mr. Bear is a 52 year-old male with recent hx of CVA in August and subsequent post-stroke depression including anhedonia, suicidal ideation with plan to cut wrist. Pt had been on cymbalta and lexapro prior to CVA. We discussed switching cymbalta to effexor in hope that may be better antidepressant with some degree of neuropathic relief. I suggest to discontinue for now lexapro. If effexor not effective then consider switching to another antidepressant. He may even benefit from stimulant- keeping in mind that after stroke he is more prone to seizures. TCA may be option but pt also has extensive cardiac history, which would limit dose or may not be tolerated all together. or considering monotherapy of antidepressant with low dose of lithium. PLAN 1. admit to M3, CV, 15 minutes checks for safety 2. start effexor 37.5mg po daily, can go up faster as he was on cymbalta 30mg po BID. stop lexapro. 3. Obtain collateral information 4. Aftercare planning. 02/09: Continue current regimen and plans 02/10: Continue current plans and regimen. I increased the Effexor to 75 mg Reason for continued inpatient stay Substantial Risk for: harm to self Time Spent With Patient Time: Total time managing care of this patient today ____ minutes. Documented by User: Lauryn Nolasco 02/11/23 14:39 Subjective Subjective Date of Service: 02/11/23 Reason For Visit: SI Interim History: Pt more visible in the milieu, reported attending some groups. Pt appeared less flat, with full range of affect, good eye contact, and more animated, gesturing while talking about things bothering him on the unit. Pt reported poor sleep last night due to roommate who was up multiple times to the bathroom, leaving the light on, or pacing the wallways. Pt reported a positive visit with his mother, but unhappy about the rule of no cell phones on the unit. Pt reported he enjoys trivia and misses playing Jeopardy on his phone to pass the time. Pt reported the Effexor is helping some , but endorsed still feeling depressed. When asked if he is ready to go home, pt became withdrawn, minimal eye contact, suddenly flat affect, and stated No, I know I would kill myself if I went home . Pt endorsed continued SI with plan and intent for home, but not on the unit and reported feeling safe here. Care coordinated with [facility]. Diagnostics Labs 02/08/23 08:52 02/08/23 08:52 Assessment & Plan Assessment & Plan (1) MDD (major depressive disorder), recurrent episode, severe: Status: Acute Code(s): F33.2 - Major depressive disorder, recurrent severe without psychotic features Plan Mr. Bear is a 52 year-old male with recent hx of CVA in August and subsequent post-stroke depression including anhedonia, suicidal ideation with plan to cut wrist. Pt had been on cymbalta and lexapro prior to CVA. We discussed switching cymbalta to effexor in hope that may be better antidepressant with some degree of neuropathic relief. I suggest to discontinue for now lexapro. If effexor not effective then consider switching to another antidepressant. He may even benefit from stimulant- keeping in mind that after stroke he is more prone to seizures. TCA may be option but pt also has extensive cardiac history, which would limit dose or may not be tolerated all together. or considering monotherapy of antidepressant with low dose of lithium. PLAN 1. admit to M3, CV, 15 minutes checks for safety 2. start effexor 37.5mg po daily, can go up faster as he was on cymbalta 30mg po BID. stop lexapro. 3. Obtain collateral information 4. Aftercare planning. 02/09: Continue current regimen and plans 02/10: Continue current plans and regimen. I increased the Effexor to 75 mg 02/11: Continue Effexor 75mg daily. Continue current plan, discharge planning ongoing.
[2023-02-11] MEDS: Venlafaxine HCl ER 75 MG CAP.ER.24H PO (10:14)
[2023-02-11] MEDS: Warfarin Sodium 10 MG TABLET 15 MG PO (18:16)
[2023-02-11 20:09] VITALS: BP 174/101; PULSE 80; TEMP 36.6; O2SAT 98
[2023-02-11] MEDS: Atorvastatin Calcium 20 MG TABLET PO (20:12)
[2023-02-11 20:34] LABS: Glucose, Whole Blood 152 mg/dL (60-115)
[2023-02-11 21:33] VITALS: BP 166/96; PULSE 73; O2SAT 99
--- NOTE | 2023-02-11 21:34 | PC.NURSE ---
BP-T/W in contact with hospitalist Dr. Fleming. notified of initial BP reading 174/101, 80, 98%. HS medicatins administered. repeat VS 166/96, 73, 99%. POC 152. no new orders. patient has no c/o. no distress noted.
[2023-02-11 23:11] VITALS: BP 172/86; PULSE 75; O2SAT 95
--- NOTE | 2023-02-12 03:06 | PC.NURSE ---
0230-incontinent of urine. showered.
[2023-02-12 03:14] VITALS: BP 150/102; BP 165/100; PULSE 83; PULSE 87; TEMP 36.7; O2SAT 99
[2023-02-12 03:31] LABS: Glucose, Whole Blood 124 mg/dL (60-115)
--- NOTE | 2023-02-12 03:32 | PC.NURSE ---
hospitalist notified of urinary incontinence with no c/o of discomfort or urgency. current VS L arm 150/102, 87, 99%. R arm 165/100, 83, T 98.0, respirations even and unlabored 14-16. POC 124. uses CPAP but refusing here. offers no c/o at this time and no distress assessed. is currently up in dayroom. reports incontinence is unusual.
--- NOTE | 2023-02-12 04:08 | PC.NURSE ---
hospitalist Dr. Fleming responded to tiger text. no new orders.
[2023-02-12 06:38] VITALS: BP 164/86; PULSE 71; O2SAT 97
[2023-02-12 07:50] VITALS: BP 162/99; PULSE 71; TEMP 36.6; O2SAT 100
[2023-02-12] MEDS: carvediloL 6.25 MG TABLET PO ×2 (08:14→21:50)
[2023-02-12] MEDS: Topiramate 100 MG TABLET PO ×2 (08:14→21:50)
[2023-02-12] MEDS: Sacubitril/Valsartan 24/26 1 TAB TABLET PO ×2 (08:14→21:49)
[2023-02-12] MEDS: metFORMIN HCl 1,000 MG TABLET 1000 MG PO (08:14)
[2023-02-12] MEDS: Venlafaxine HCl ER 75 MG CAP.ER.24H PO (08:15)
[2023-02-12 08:17] LABS: Glucose, Whole Blood 112 mg/dL (60-115)
[2023-02-12 09:16] LABS: INTERNATIONAL NORM RATIO 1.9 (0.9-1.1); Prothrombin Time 23.2 SEC (11.1-13.3)
--- NOTE | 2023-02-12 09:57 | HO.PSYCHPN ---
Subjective Subjective Date of Service: 02/12/23 Reason For Visit: SI Subjective Notes: Conditional Voluntary Interim History: Reviewed with . Patient presents, calm, friendly, bright. Observed being social with peers; pt reports he is feeling okay and trying to be happy . He reports suicidal ideation with plan to slit wrists; because I feel lonely and have no income or anything to do . denies HI/VH/AH. Medication Compliance: Yes Side effects from medications: No Attending Groups: Yes Review of Systems Constitutional: Reports as per HPI Eyes: Reports as per HPI Reports as per HPI Cardiovascular: Reports as per HPI Respiratory: Reports as per HPI Gastrointestinal: Reports as per HPI Genitourinary: Reports as per HPI Musculoskeletal: Reports as per HPI Skin/Breast: Reports as per HPI Reports as per HPI Psychiatric: Reports as per HPI Endocrine: Reports as per HPI Hematologic/Lymphatic: Reports as per HPI Allergic/Immunologic: Reports as per HPI Mental Status Exam Mental Status Exam Narrative: Pt is alert and oriented; behavior is cooperative, friendly and calm; dressed in casual attire; mood is described as okay ; eye contact appropriate; Speech is normal rate, volume and prosody and not pressured; no psychomotor agitation/retardation present; thought process is organized; Thought content is on tx; otherwise pertinent to relevant topics and without any delusional content, paranoid ideations or grandiosity; denies HI. Pt reports suicidal ideation with plan to slit wrists with knife ; feels safe on unit. There is no evidence of perceptual disturbance. Patients insight and judgment are poor. Diagnostics Vital Signs (24Hr): Vital Signs - 24 hr 02/11/23 20:09 02/11/23 21:33 02/11/23 23:11 Temperature 97.9 F Pulse Rate 80 73 75 Blood Pressure 174/101 H 166/96 H 172/86 H Pulse Oximetry 98 99 95 Oxygen Delivery Method Room Air Room Air Room Air 02/12/23 03:14 02/12/23 03:14 02/12/23 06:38 Temperature 98.0 F Pulse Rate 87 83 71 Blood Pressure 150/102 H 165/100 H 164/86 H Pulse Oximetry 99 99 97 Oxygen Delivery Method Room Air Room Air Room Air 02/12/23 07:50 Temperature 97.8 F Pulse Rate 71 Blood Pressure 162/99 H Pulse Oximetry 100 Oxygen Delivery Method Room Air BMI result Body Mass Index 35.2 Labs 02/08/23 08:52 02/08/23 08:52 Labs: Laboratory Results - last 48 hr 02/10/23 02/11/23 02/11/23 17:34 08:02 08:29 PT 17.2 H INR 1.4 H POC Glucose 162 H 131 H 02/11/23 02/12/23 02/12/23 20:30 03:26 08:03 PT INR POC Glucose 152 H 124 H 112 02/12/23 08:45 PT 23.2 H D INR 1.9 H POC Glucose Medications Medications Current Medications Acetaminophen (Acetaminophen 325 Mg Tablet) 650 mg PO Q6H PRN PRN Reason: Headache/Pain Mild Scale (1-3) Al Hydroxide/Mg Hydroxide (Magnesium Hydrox/Alum Hydrox 30 Ml Oral.Susp) 30 ml PO Q6H PRN PRN Reason: Heartburn/Nausea Atorvastatin Calcium (Atorvastatin Calcium 20 Mg Tablet) 20 mg PO BEDTIME [facility] Last Admin: 02/11/23 20:12 Dose: 20 mg Carvedilol (Carvedilol 6.25 Mg Tablet) 6.25 mg PO BID [facility]; Protocol Last Admin: 02/12/23 08:14 Dose: 6.25 mg Hydroxyzine HCl (Hydroxyzine Hcl 25 Mg Tablet) 25 mg PO Q6H PRN PRN Reason: Anxiety Magnesium Hydroxide (Milk Of Magnesia 30 Ml Oral.Susp) 30 ml PO DAILY PRN PRN Reason: Constipation Metformin HCl (Metformin Hcl 1,000 Mg Tablet) 1,000 mg PO DAILY [facility] Last Admin: 02/12/23 08:14 Dose: 1,000 mg Midodrine (Midodrine Hcl 5 Mg Tablet) 5 mg PO BID [facility] Last Admin: 02/08/23 20:53 Dose: 5 mg Nicotine Polacrilex (Nicotine Polacrilex 2 Mg Gum) 4 mg BUCCAL Q2H PRN PRN Reason: Nicotine Cravings Sacubitril/Valsartan (Sacubitril/Valsartan 1 Tab Tablet) 1 tab PO BID [facility]; Protocol Last Admin: 02/12/23 08:14 Dose: 1 tab Topiramate (Topiramate 100 Mg Tablet) 100 mg PO BID [facility] Last Admin: 02/12/23 08:14 Dose: 100 mg Trazodone HCl (Trazodone Hcl 50 Mg Tablet) 50 mg PO BEDTIME PRN PRN Reason: Insomnia Venlafaxine HCl (Venlafaxine Hcl Er 75 Mg Cap.Er.24h) 75 mg PO DAILY [facility] Last Admin: 02/12/23 08:15 Dose: 75 mg Warfarin Sodium (Warfarin Sodium 10 Mg Tablet) 15 mg PO DAILY@1800 [facility] Last Admin: 02/11/23 18:16 Dose: 15 mg Allergies Allergies Allergy/AdvReac Type Severity Reaction Status Date / Time dapagliflozin Allergy Unknown Verified 02/09/23 17:54 vancomycin Allergy Unknown Verified 02/08/23 03:44 Assessment & Plan Assessment & Plan (1) MDD (major depressive disorder), recurrent episode, severe: Status: Acute Code(s): F33.2 - Major depressive disorder, recurrent severe without psychotic features Plan Mr. Bear is a 52 year-old male with recent hx of CVA in August and subsequent post-stroke depression including anhedonia, suicidal ideation with plan to cut wrist. Pt had been on cymbalta and lexapro prior to CVA. We discussed switching cymbalta to effexor in hope that may be better antidepressant with some degree of neuropathic relief. I suggest to discontinue for now lexapro. If effexor not effective then consider switching to another antidepressant. He may even benefit from stimulant- keeping in mind that after stroke he is more prone to seizures. TCA may be option but pt also has extensive cardiac history, which would limit dose or may not be tolerated all together. or considering monotherapy of antidepressant with low dose of lithium. PLAN 1. admit to M3, CV, 15 minutes checks for safety 2. start effexor 37.5mg po daily, can go up faster as he was on cymbalta 30mg po BID. stop lexapro. 3. Obtain collateral information 4. Aftercare planning. 02/09: Continue current regimen and plans 02/10: Continue current plans and regimen. I increased the Effexor to 75 mg 02/11: Continue Effexor 75mg daily. Continue current plan, discharge planning ongoing. 02/12: Patient presents, calm, friendly, bright. Observed being social with peers; pt reports he is feeling okay and trying to be happy . He reports suicidal ideation with plan to slit wrists; because I feel lonely and have no income or anything to do . denies HI/VH/AH. Pt requested compression stockings d/t using them daily at home; ordered. RN aware. Patient educated on: diagnosis, medication risk/benefits and therapeutic strategies Informed Consent: understands Reason for continued inpatient stay Substantial Risk for: harm to self and med/psych decompensation Time Spent With Patient Time: Total time managing care of this patient today _30___ minutes.
[2023-02-12] MEDS: Warfarin Sodium 10 MG TABLET 15 MG PO (18:06)
[2023-02-12 19:55] LABS: Glucose, Whole Blood 186 mg/dL (60-115)
[2023-02-12 20:20] VITALS: BP 173/101; PULSE 96; RESP 18; TEMP 36.7; O2SAT 99
[2023-02-12] MEDS: Atorvastatin Calcium 20 MG TABLET PO (21:50)
[2023-02-13 06:00] VITALS: BP 160/107; PULSE 88; TEMP 36.6; O2SAT 99
[2023-02-13 07:44] LABS: Glucose, Whole Blood 107 mg/dL (60-115)
[2023-02-13 08:51] LABS: INTERNATIONAL NORM RATIO 2.2 (0.9-1.1); Prothrombin Time 26.5 SEC (11.1-13.3)
[2023-02-13 09:40] VITALS: BP 180/107; PULSE 92
--- NOTE | 2023-02-13 09:41 | HO.PSYCHPN ---
Subjective Subjective Date of Service: 02/13/23 Reason For Visit: SI Subjective Notes: Conditional Voluntary Interim History: Reviewed with . Patient presents, calm, friendly, bright. Observed being social with peers; pt reports he is doing okay today but feel like I need to stay a bit longer before I feel safe to go back home . Continues to report suicidal ideation if returned home at this time. He states he would be interested in attending [facility] once discharged. Medication Compliance: Yes Side effects from medications: No Attending Groups: Yes Review of Systems Constitutional: Reports as per HPI Eyes: Reports as per HPI Reports as per HPI Cardiovascular: Reports as per HPI Respiratory: Reports as per HPI Gastrointestinal: Reports as per HPI Genitourinary: Reports as per HPI Musculoskeletal: Reports as per HPI Skin/Breast: Reports as per HPI Reports as per HPI Psychiatric: Reports as per HPI Endocrine: Reports as per HPI Hematologic/Lymphatic: Reports as per HPI Allergic/Immunologic: Reports as per HPI Mental Status Exam Mental Status Exam Narrative: Pt is alert and oriented; behavior is cooperative, friendly and calm; dressed in casual attire; mood is described as okay ; eye contact appropriate; Speech is normal rate, volume and prosody and not pressured; no psychomotor agitation/retardation present; thought process is organized; Thought content is on tx; otherwise pertinent to relevant topics and without any delusional content, paranoid ideations or grandiosity; denies HI. Pt reports suicidal ideation with plan to slit wrists with knife ; feels safe on unit. There is no evidence of perceptual disturbance. Patients insight and judgment are poor. Diagnostics Vital Signs (24Hr): Vital Signs - 24 hr 02/12/23 20:20 02/13/23 06:00 02/13/23 09:40 Temperature 98.1 F 97.9 F Pulse Rate 96 88 92 Respiratory Rate 18 Blood Pressure 173/101 H 160/107 H 180/107 H Pulse Oximetry 99 99 Oxygen Delivery Method Room Air Room Air BMI result Body Mass Index 35.2 Labs 02/08/23 08:52 02/08/23 08:52 Labs: Laboratory Results - last 48 hr 02/11/23 02/12/23 02/12/23 20:30 03:26 08:03 PT INR POC Glucose 152 H 124 H 112 02/12/23 02/12/23 02/13/23 08:45 19:50 07:38 PT 23.2 H D INR 1.9 H POC Glucose 186 H 107 02/13/23 08:24 PT 26.5 H INR 2.2 H POC Glucose Medications Medications Current Medications Acetaminophen (Acetaminophen 325 Mg Tablet) 650 mg PO Q6H PRN PRN Reason: Headache/Pain Mild Scale (1-3) Al Hydroxide/Mg Hydroxide (Magnesium Hydrox/Alum Hydrox 30 Ml Oral.Susp) 30 ml PO Q6H PRN PRN Reason: Heartburn/Nausea Atorvastatin Calcium (Atorvastatin Calcium 20 Mg Tablet) 20 mg PO BEDTIME [facility] Last Admin: 02/12/23 21:50 Dose: 20 mg Carvedilol (Carvedilol 6.25 Mg Tablet) 6.25 mg PO BID [facility]; Protocol Last Admin: 02/12/23 21:50 Dose: 6.25 mg Hydroxyzine HCl (Hydroxyzine Hcl 25 Mg Tablet) 25 mg PO Q6H PRN PRN Reason: Anxiety Magnesium Hydroxide (Milk Of Magnesia 30 Ml Oral.Susp) 30 ml PO DAILY PRN PRN Reason: Constipation Metformin HCl (Metformin Hcl 1,000 Mg Tablet) 1,000 mg PO DAILY [facility] Last Admin: 02/12/23 08:14 Dose: 1,000 mg Midodrine (Midodrine Hcl 5 Mg Tablet) 5 mg PO BID [facility] Last Admin: 02/08/23 20:53 Dose: 5 mg Nicotine Polacrilex (Nicotine Polacrilex 2 Mg Gum) 4 mg BUCCAL Q2H PRN PRN Reason: Nicotine Cravings Sacubitril/Valsartan (Sacubitril/Valsartan 1 Tab Tablet) 1 tab PO BID [facility]; Protocol Last Admin: 02/12/23 21:49 Dose: 1 tab Topiramate (Topiramate 100 Mg Tablet) 100 mg PO BID [facility] Last Admin: 02/12/23 21:50 Dose: 100 mg Trazodone HCl (Trazodone Hcl 50 Mg Tablet) 50 mg PO BEDTIME PRN PRN Reason: Insomnia Venlafaxine HCl (Venlafaxine Hcl Er 75 Mg Cap.Er.24h) 75 mg PO DAILY [facility] Last Admin: 02/12/23 08:15 Dose: 75 mg Warfarin Sodium (Warfarin Sodium 10 Mg Tablet) 15 mg PO DAILY@1800 [facility] Last Admin: 02/12/23 18:06 Dose: 15 mg Allergies Allergies Allergy/AdvReac Type Severity Reaction Status Date / Time dapagliflozin Allergy Unknown Verified 02/09/23 17:54 vancomycin Allergy Unknown Verified 02/08/23 03:44 Assessment & Plan Assessment & Plan (1) MDD (major depressive disorder), recurrent episode, severe: Status: Acute Code(s): F33.2 - Major depressive disorder, recurrent severe without psychotic features Plan Mr. Bear is a 52 year-old male with recent hx of CVA in August and subsequent post-stroke depression including anhedonia, suicidal ideation with plan to cut wrist. Pt had been on cymbalta and lexapro prior to CVA. We discussed switching cymbalta to effexor in hope that may be better antidepressant with some degree of neuropathic relief. I suggest to discontinue for now lexapro. If effexor not effective then consider switching to another antidepressant. He may even benefit from stimulant- keeping in mind that after stroke he is more prone to seizures. TCA may be option but pt also has extensive cardiac history, which would limit dose or may not be tolerated all together. or considering monotherapy of antidepressant with low dose of lithium. PLAN 1. admit to [facility], CV, 15 minutes checks for safety 2. start effexor 37.5mg po daily, can go up faster as he was on cymbalta 30mg po BID. stop lexapro. 3. Obtain collateral information 4. Aftercare planning. 02/09: Continue current regimen and plans 02/10: Continue current plans and regimen. I increased the Effexor to 75 mg 02/11: Continue Effexor 75mg daily. Continue current plan, discharge planning ongoing. 02/12: Patient presents, calm, friendly, bright. Observed being social with peers; pt reports he is feeling okay and trying to be happy . He reports suicidal ideation with plan to slit wrists; because I feel lonely and have no income or anything to do . denies HI/VH/AH. Pt requested compression stockings d/t using them daily at home; ordered. RN aware. 02/13: Patient presents, calm, friendly, bright. Observed being social with peers; pt reports he is doing okay today but feel like I need to stay a bit longer before I feel safe to go back home . Continues to report suicidal ideation if returned home at this time. He states he would be interested in attending [facility] once discharged. Patient educated on: diagnosis, medication risk/benefits and therapeutic strategies Informed Consent: understands Reason for continued inpatient stay Substantial Risk for: harm to self and med/psych decompensation Time Spent With Patient Time: Total time managing care of this patient today _30___ minutes.
[2023-02-13] MEDS: Sacubitril/Valsartan 24/26 1 TAB TABLET PO (09:45)
[2023-02-13] MEDS: Topiramate 100 MG TABLET PO ×2 (09:45→21:08)
[2023-02-13] MEDS: metFORMIN HCl 1,000 MG TABLET 1000 MG PO (09:46)
[2023-02-13] MEDS: Venlafaxine HCl ER 75 MG CAP.ER.24H PO (09:46)
[2023-02-13] MEDS: carvediloL 6.25 MG TABLET PO ×2 (09:46→21:08)
[2023-02-13] MEDS: Warfarin Sodium 10 MG TABLET 15 MG PO (18:23)
[2023-02-13 20:15] VITALS: BP 169/96; PULSE 84; TEMP 37.2; O2SAT 98
[2023-02-13] MEDS: Sacubitril/Valsartan 49/51 1 TAB TABLET PO (21:08)
[2023-02-13] MEDS: Atorvastatin Calcium 20 MG TABLET PO (21:08)
[2023-02-13 21:47] LABS: Glucose, Whole Blood 181 mg/dL (60-115)
[2023-02-14] VITALS (7 sets, daily range): BP systolic 159–204; BP diastolic 80–122; PULSE 70–78; RESP 16–18; TEMP 36.2–37.6; O2SAT 99–100; BMI 37.4
--- NOTE | 2023-02-14 | ECG_ITS ---
Test Reason : palpitation Blood Pressure : / mmHG Vent. Rate : 076 BPM Atrial Rate : 076 BPM P-R Int : 182 ms QRS Dur : 130 ms QT Int : 426 ms P-R-T Axes : 054 -59 086 degrees QTc Int : 479 ms Normal sinus rhythm Left bundle branch block Abnormal ECG When compared with ECG of 08-FEB-2023 13:31, No significant change was found Referred By: Rabia Fritz Electronically Signed By:AMILCAR BERNSTEIN MD
[2023-02-14 07:19] LABS: INTERNATIONAL NORM RATIO 2.1 (0.9-1.1); Prothrombin Time 25.8 SEC (11.1-13.3)
[2023-02-14 08:06] LABS: Glucose, Whole Blood 112 mg/dL (60-115)
[2023-02-14] MEDS: Topiramate 100 MG TABLET PO ×2 (08:37→20:04)
[2023-02-14] MEDS: carvediloL 6.25 MG TABLET PO (08:37)
[2023-02-14] MEDS: Sacubitril/Valsartan 49/51 1 TAB TABLET PO ×2 (08:37→20:05)
[2023-02-14] MEDS: Venlafaxine HCl ER 75 MG CAP.ER.24H PO (08:37)
[2023-02-14] MEDS: metFORMIN HCl 1,000 MG TABLET 1000 MG PO (08:37)
--- NOTE | 2023-02-14 09:25 | HO.PSYCHPN ---
Subjective Subjective Date of Service: 02/14/23 Reason For Visit: SI Subjective Notes: Conditional Voluntary Interim History: Reviewed with . Patient observed being social with peers; pt reports he is improved a little bit . Continues to report suicidal ideation if returned home at this time; pt stated, I don't want to go home. I'm not ready. I'm trying to figure out where my life is going to go . He states he would be interested in attending PHP once discharged. Medication Compliance: Yes Side effects from medications: No Attending Groups: Intermittent Review of Systems Constitutional: Reports as per HPI Eyes: Reports as per HPI Reports as per HPI Cardiovascular: Reports as per HPI Respiratory: Reports as per HPI Gastrointestinal: Reports as per HPI Genitourinary: Reports as per HPI Musculoskeletal: Reports as per HPI Skin/Breast: Reports as per HPI Reports as per HPI Psychiatric: Reports as per HPI Endocrine: Reports as per HPI Hematologic/Lymphatic: Reports as per HPI Allergic/Immunologic: Reports as per HPI Mental Status Exam Mental Status Exam Narrative: Pt is alert and oriented; behavior is cooperative and calm; dressed in casual attire; mood is described as improved ; eye contact appropriate; Speech is normal rate, volume and prosody and not pressured; no psychomotor agitation/retardation present; thought process is organized; Thought content is on tx; otherwise pertinent to relevant topics and without any delusional content, paranoid ideations or grandiosity; denies HI. Pt reports suicidal ideation; feels safe on unit. There is no evidence of perceptual disturbance. Patients insight and judgment are poor. Diagnostics Vital Signs (24Hr): Vital Signs - 24 hr 02/13/23 09:40 02/13/23 20:15 02/14/23 08:12 Temperature 98.9 F 97.2 F Pulse Rate 92 84 70 Respiratory Rate 16 Blood Pressure 180/107 H 169/96 H 204/117 H Pulse Oximetry 98 99 Oxygen Delivery Method Room Air Room Air 02/14/23 08:36 Temperature Pulse Rate Respiratory Rate 18 Blood Pressure 199/101 H Pulse Oximetry 100 Oxygen Delivery Method BMI result Body Mass Index 37.4 Labs 02/08/23 08:52 02/08/23 08:52 Labs: Laboratory Results - last 48 hr 02/12/23 02/13/23 02/13/23 19:50 07:38 08:24 PT 26.5 H INR 2.2 H POC Glucose 186 H 107 02/13/23 02/14/23 02/14/23 21:43 06:35 08:02 PT 25.8 H INR 2.1 H POC Glucose 181 H 112 Medications Medications Current Medications Acetaminophen (Acetaminophen 325 Mg Tablet) 650 mg PO Q6H PRN PRN Reason: Headache/Pain Mild Scale (1-3) Al Hydroxide/Mg Hydroxide (Magnesium Hydrox/Alum Hydrox 30 Ml Oral.Susp) 30 ml PO Q6H PRN PRN Reason: Heartburn/Nausea Atorvastatin Calcium (Atorvastatin Calcium 20 Mg Tablet) 20 mg PO BEDTIME [facility] Last Admin: 02/13/23 21:08 Dose: 20 mg Carvedilol (Carvedilol 6.25 Mg Tablet) 6.25 mg PO BID [facility]; Protocol Last Admin: 02/14/23 08:37 Dose: 6.25 mg Hydroxyzine HCl (Hydroxyzine Hcl 25 Mg Tablet) 25 mg PO Q6H PRN PRN Reason: Anxiety Magnesium Hydroxide (Milk Of Magnesia 30 Ml Oral.Susp) 30 ml PO DAILY PRN PRN Reason: Constipation Metformin HCl (Metformin Hcl 1,000 Mg Tablet) 1,000 mg PO DAILY [facility] Last Admin: 02/14/23 08:37 Dose: 1,000 mg Nicotine Polacrilex (Nicotine Polacrilex 2 Mg Gum) 4 mg BUCCAL Q2H PRN PRN Reason: Nicotine Cravings Sacubitril/Valsartan (Sacubitril/Valsartan 49/51 1 Tab Tablet) 1 tab PO BID [facility]; Protocol Last Admin: 02/14/23 08:37 Dose: 1 tab Topiramate (Topiramate 100 Mg Tablet) 100 mg PO BID [facility] Last Admin: 02/14/23 08:37 Dose: 100 mg Trazodone HCl (Trazodone Hcl 50 Mg Tablet) 50 mg PO BEDTIME PRN PRN Reason: Insomnia Venlafaxine HCl (Venlafaxine Hcl Er 75 Mg Cap.Er.24h) 75 mg PO DAILY [facility] Last Admin: 02/14/23 08:37 Dose: 75 mg Warfarin Sodium (Warfarin Sodium 10 Mg Tablet) 15 mg PO DAILY@1800 [facility] Last Admin: 02/13/23 18:23 Dose: 15 mg Allergies Allergies Allergy/AdvReac Type Severity Reaction Status Date / Time dapagliflozin Allergy Unknown Verified 02/09/23 17:54 vancomycin Allergy Unknown Verified 02/08/23 03:44 Assessment & Plan Assessment & Plan (1) MDD (major depressive disorder), recurrent episode, severe: Status: Acute Code(s): F33.2 - Major depressive disorder, recurrent severe without psychotic features Plan Mr. Bear is a 52 year-old male with recent hx of CVA in August and subsequent post-stroke depression including anhedonia, suicidal ideation with plan to cut wrist. Pt had been on cymbalta and lexapro prior to CVA. We discussed switching cymbalta to effexor in hope that may be better antidepressant with some degree of neuropathic relief. I suggest to discontinue for now lexapro. If effexor not effective then consider switching to another antidepressant. He may even benefit from stimulant- keeping in mind that after stroke he is more prone to seizures. TCA may be option but pt also has extensive cardiac history, which would limit dose or may not be tolerated all together. or considering monotherapy of antidepressant with low dose of lithium. PLAN 1. admit to [facility], CV, 15 minutes checks for safety 2. start effexor 37.5mg po daily, can go up faster as he was on cymbalta 30mg po BID. stop lexapro. 3. Obtain collateral information 4. Aftercare planning. 02/09: Continue current regimen and plans 02/10: Continue current plans and regimen. I increased the Effexor to 75 mg 02/11: Continue Effexor 75mg daily. Continue current plan, discharge planning ongoing. 02/12: Patient presents, calm, friendly, bright. Observed being social with peers; pt reports he is feeling okay and trying to be happy . He reports suicidal ideation with plan to slit wrists; because I feel lonely and have no income or anything to do . denies HI/VH/AH. Pt requested compression stockings d/t using them daily at home; ordered. RN aware. 02/13: Patient presents, calm, friendly, bright. Observed being social with peers; pt reports he is doing okay today but feel like I need to stay a bit longer before I feel safe to go back home . Continues to report suicidal ideation if returned home at this time. He states he would be interested in attending [facility] once discharged. 02/14: Patient observed being social with peers; pt reports he is improved a little bit . Continues to report suicidal ideation if returned home at this time; pt stated, I don't want to go home. I'm not ready. I'm trying to figure out where my life is going to go . Continue current tx plan. Patient educated on: diagnosis and medication risk/benefits Informed Consent: understands Reason for continued inpatient stay Substantial Risk for: harm to self and med/psych decompensation Time Spent With Patient Time: Total time managing care of this patient today _30___ minutes.
--- NOTE | 2023-02-14 18:15 | PC.NURSE ---
Patient BP elevated, [facility] notified. Patient offers no complaints oat this time. Waiting response.
[2023-02-14] MEDS: Warfarin Sodium 10 MG TABLET 15 MG PO (18:28)
--- NOTE | 2023-02-14 18:35 | PM.EVENT ---
Event Note Date of Service: 02/14/23 Event Note: Follow-up for patient with uncontrolled hypertension. BP remains elevated today with readings as high as 204/117. Will increase carvedilol to 12.5 mg p.o. b.i.d. and will start on amlodipine 5 mg p.o. qd. Time Spent With Patient Time: Total time managing care of this patient today ____ minutes.
[2023-02-14] MEDS: amLODIPine Besylate 5 MG TABLET PO (18:48)
--- NOTE | 2023-02-14 19:00 | PC.NURSE ---
Patient blood pressure elevated, c/o feeling dizzy and lightheaded. Reports feeling like he was going to fall when walking down [address]. Reports not feeling well. Rabia Fritz notified, EKG ordered, Hospitalist consult. Norvasc administered as ordered, dose clarified 5mg now. Patient requesting to go to ED. Provider aware.
[2023-02-14] MEDS: Atorvastatin Calcium 20 MG TABLET PO (20:04)
[2023-02-14] MEDS: carvediloL 12.5 MG TABLET PO (20:05)
--- NOTE | 2023-02-14 21:38 | PC.NURSE ---
Ayden had a CT of his brain r/t increased B/P that is not responding to medications with a history of HTN and CVA. patient will be transferred to medical for further evaluation
--- NOTE | 2023-02-14 21:40 | P.DS_ITS ---
DS: Providers Provider Date of Service: 02/14/23 Date of admission: 02/07/23 20:08 Primary care physician: Gaurang Valdez MD Consults: 02/07/23 20:43 Consult to Hospitalist Routine Comment: Consulting Provider: Hospitalist Reason For Exam: OSH admission 02/14/23 19:00 Consult to Hospitalist Stat Comment: Consulting Provider: Hospitalist Reason For Exam: elevated BP, dizziness, difficulty walking DS: Diagnosis Discharge Diagnosis (1) MDD (major depressive disorder), recurrent episode, severe: Status: Acute DS: Medications Discharge Medications Home Medications: Previous Rx's Medication Instructions Recorded amlodipine 5 mg tablet 5 mg PO DAILY #0 tabs 02/14/23 atorvastatin 20 mg tablet 20 mg PO BEDTIME #0 tabs 02/14/23 carvedilol 12.5 mg tablet 12.5 mg PO BID #0 tabs 02/14/23 metformin 1,000 mg tablet 1,000 mg PO DAILY #0 tabs 02/14/23 sacubitril 49 mg-valsartan 51 mg 1 tab PO BID #0 tabs 02/14/23 tablet (Entresto) topiramate 100 mg tablet 100 mg PO BID #0 tabs 02/14/23 venlafaxine 75 mg capsule,extended 75 mg PO DAILY #0 caps 02/14/23 release 24 hr warfarin 10 mg tablet (Jantoven) 15 mg (1.5 x 10 mg) PO DAILY@1800 02/14/23 #0 tabs Data Data Completed and Pending Completed studies during hospitalization [Text1]: 02/07/23 02/08/23 02/08/23 22:39 08:52 08:53 WBC 7.3 RBC 4.93 Hgb 13.3 L Hct 40.3 L MCV 81.7 MCH 27.0 MCHC 33.0 RDW 14.6 Plt Count 168 MPV 11.5 Immature Gran % (Auto) 0.3 Neut % (Auto) 56.7 Lymph % (Auto) 26.3 [place] % (Auto) 12.0 H Eos % (Auto) 4.1 H Baso % (Auto) 0.6 Lymph # (Auto) 1.9 [place] # (Auto) 0.9 Eos # (Auto) 0.3 Baso # (Auto) 0.0 Abs Immat Gran (auto) 0.02 Absolute Neuts (auto) 4.1 Absolute Nucleated RBC 0.000 Nucleated RBC % (auto) 0.0 PT 23.6 H INR 1.9 H Sodium 143 Potassium 3.8 Chloride 113 H Carbon Dioxide 23 Anion Gap 11 L BUN 35 H Creatinine 0.89 Estim Creat Clear Calc 109.4 Estimated GFR > 60 POC Glucose Fasting Glucose 117 H Estimat Average Glucose 117 Hemoglobin A1c % 5.7 Calcium 9.3 Total Bilirubin 0.6 Direct Bilirubin 0.2 AST 15 ALT 19 Alkaline Phosphatase 72 Total Protein 6.3 L Albumin 3.6 Triglycerides 168 H Cholesterol 121 LDL Cholesterol, Calc 62 HDL Cholesterol 26 L Vitamin B12 375 Folate 7.3 TSH 1.41 Free T4 0.95 02/08/23 02/09/23 02/09/23 18:55 09:18 15:52 WBC RBC Hgb Hct MCV MCH MCHC RDW Plt Count MPV Immature Gran % (Auto) Neut % (Auto) Lymph % (Auto) [place] % (Auto) Eos % (Auto) Baso % (Auto) Lymph # (Auto) [place] # (Auto) Eos # (Auto) Baso # (Auto) Abs Immat Gran (auto) Absolute Neuts (auto) Absolute Nucleated RBC Nucleated RBC % (auto) PT 18.4 H D 16.5 H INR 1.5 H 1.4 H Sodium Potassium Chloride Carbon Dioxide Anion Gap BUN Creatinine Estim Creat Clear Calc Estimated GFR POC Glucose 147 H Fasting Glucose Estimat Average Glucose Hemoglobin A1c % Calcium Total Bilirubin Direct Bilirubin AST ALT Alkaline Phosphatase Total Protein Albumin Triglycerides Cholesterol LDL Cholesterol, Calc HDL Cholesterol Vitamin B12 Folate TSH Free T4 02/09/23 02/10/23 02/10/23 17:49 08:04 08:13 WBC RBC Hgb Hct MCV MCH MCHC RDW Plt Count MPV Immature Gran % (Auto) Neut % (Auto) Lymph % (Auto) [place] % (Auto) Eos % (Auto) Baso % (Auto) Lymph # (Auto) [place] # (Auto) Eos # (Auto) Baso # (Auto) Abs Immat Gran (auto) Absolute Neuts (auto) Absolute Nucleated RBC Nucleated RBC % (auto) PT 16.2 H INR 1.3 H Sodium Potassium Chloride Carbon Dioxide Anion Gap BUN Creatinine Estim Creat Clear Calc Estimated GFR POC Glucose 144 H 103 Fasting Glucose Estimat Average Glucose Hemoglobin A1c % Calcium Total Bilirubin Direct Bilirubin AST ALT Alkaline Phosphatase Total Protein Albumin Triglycerides Cholesterol LDL Cholesterol, Calc HDL Cholesterol Vitamin B12 Folate TSH Free T4 02/10/23 02/11/23 02/11/23 17:34 08:02 08:29 WBC RBC Hgb Hct MCV MCH MCHC RDW Plt Count MPV Immature Gran % (Auto) Neut % (Auto) Lymph % (Auto) [place] % (Auto) Eos % (Auto) Baso % (Auto) Lymph # (Auto) [place] # (Auto) Eos # (Auto) Baso # (Auto) Abs Immat Gran (auto) Absolute Neuts (auto) Absolute Nucleated RBC Nucleated RBC % (auto) PT 17.2 H INR 1.4 H Sodium Potassium Chloride Carbon Dioxide Anion Gap BUN Creatinine Estim Creat Clear Calc Estimated GFR POC Glucose 162 H 131 H Fasting Glucose Estimat Average Glucose Hemoglobin A1c % Calcium Total Bilirubin Direct Bilirubin AST ALT Alkaline Phosphatase Total Protein Albumin Triglycerides Cholesterol LDL Cholesterol, Calc HDL Cholesterol Vitamin B12 Folate TSH Free T4 02/11/23 02/12/23 02/12/23 20:30 03:26 08:03 WBC RBC Hgb Hct MCV MCH MCHC RDW Plt Count MPV Immature Gran % (Auto) Neut % (Auto) Lymph % (Auto) [place] % (Auto) Eos % (Auto) Baso % (Auto) Lymph # (Auto) [place] # (Auto) Eos # (Auto) Baso # (Auto) Abs Immat Gran (auto) Absolute Neuts (auto) Absolute Nucleated RBC Nucleated RBC % (auto) PT INR Sodium Potassium Chloride Carbon Dioxide Anion Gap BUN Creatinine Estim Creat Clear Calc Estimated GFR POC Glucose 152 H 124 H 112 Fasting Glucose Estimat Average Glucose Hemoglobin A1c % Calcium Total Bilirubin Direct Bilirubin AST ALT Alkaline Phosphatase Total Protein Albumin Triglycerides Cholesterol LDL Cholesterol, Calc HDL Cholesterol Vitamin B12 Folate TSH Free T4 02/12/23 02/12/23 02/13/23 08:45 19:50 07:38 WBC RBC Hgb Hct MCV MCH MCHC RDW Plt Count MPV Immature Gran % (Auto) Neut % (Auto) Lymph % (Auto) [place] % (Auto) Eos % (Auto) Baso % (Auto) Lymph # (Auto) [place] # (Auto) Eos # (Auto) Baso # (Auto) Abs Immat Gran (auto) Absolute Neuts (auto) Absolute Nucleated RBC Nucleated RBC % (auto) PT 23.2 H D INR 1.9 H Sodium Potassium Chloride Carbon Dioxide Anion Gap BUN Creatinine Estim Creat Clear Calc Estimated GFR POC Glucose 186 H 107 Fasting Glucose Estimat Average Glucose Hemoglobin A1c % Calcium Total Bilirubin Direct Bilirubin AST ALT Alkaline Phosphatase Total Protein Albumin Triglycerides Cholesterol LDL Cholesterol, Calc HDL Cholesterol Vitamin B12 Folate TSH Free T4 02/13/23 02/13/23 02/14/23 08:24 21:43 06:35 WBC RBC Hgb Hct MCV MCH MCHC RDW Plt Count MPV Immature Gran % (Auto) Neut % (Auto) Lymph % (Auto) [place] % (Auto) Eos % (Auto) Baso % (Auto) Lymph # (Auto) [place] # (Auto) Eos # (Auto) Baso # (Auto) Abs Immat Gran (auto) Absolute Neuts (auto) Absolute Nucleated RBC Nucleated RBC % (auto) PT 26.5 H 25.8 H INR 2.2 H 2.1 H Sodium Potassium Chloride Carbon Dioxide Anion Gap BUN Creatinine Estim Creat Clear Calc Estimated GFR POC Glucose 181 H Fasting Glucose Estimat Average Glucose Hemoglobin A1c % Calcium Total Bilirubin Direct Bilirubin AST ALT Alkaline Phosphatase Total Protein Albumin Triglycerides Cholesterol LDL Cholesterol, Calc HDL Cholesterol Vitamin B12 Folate TSH Free T4 02/14/23 08:02 WBC RBC Hgb Hct MCV MCH MCHC RDW Plt Count MPV Immature Gran % (Auto) Neut % (Auto) Lymph % (Auto) [place] % (Auto) Eos % (Auto) Baso % (Auto) Lymph # (Auto) [place] # (Auto) Eos # (Auto) Baso # (Auto) Abs Immat Gran (auto) Absolute Neuts (auto) Absolute Nucleated RBC Nucleated RBC % (auto) PT INR Sodium Potassium Chloride Carbon Dioxide Anion Gap BUN Creatinine Estim Creat Clear Calc Estimated GFR POC Glucose 112 Fasting Glucose Estimat Average Glucose Hemoglobin A1c % Calcium Total Bilirubin Direct Bilirubin AST ALT Alkaline Phosphatase Total Protein Albumin Triglycerides Cholesterol LDL Cholesterol, Calc HDL Cholesterol Vitamin B12 Folate TSH Free T4 Imaging Diagnostic Imaging Impressions Head CT 02/14/23 20:24 IMPRESSION: This exam is felt to be abnormal. There is no midline shift or mass effect or hemorrhage. Subtle areas of decreased attenuation in the white matter in the brain as described in this young patient including the central regions which could represent areas of white matter infarction or white matter disease. In addition in the left occipital region some decreased attenuation with some loss of the yin-white matter differentiation could be an area of more acute or subacute infarct. Limited exam from artifact in the area. Recommendation is MRI to further evaluate in this patient with diffusion-weighted imaging. DS: Summary Hospital Course Hospital Course: HPI: Subjective Notes: Hernandez Warning (given and shows understanding) and Conditional Voluntary Narrative: Mr. Bear is a 52 year-old male with hx of MDD worsened after he had CVA back in August 2022. Pt initially self presented to [facility] [place] [place] and was referred to respite. Pt was sent back to [facility] [place] [place] due to hypertension. Pt then was reevaluated by N and discharged but pt insisted in degree of depression and suicidality. Utox is negative. On the unit, pt reports he has been feeling more depressed since August. He endorses anhedonia, difficulty getting out of bed or doing anything. He reports he is mostly in bed. 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 He was also advised not to drive due to coordination problems but states that recently he was cleared to go back to work again after rehab at [facility]. He reports he continues to have severe depression with no motivation to initiate any activity. He reports fair sleep. No visual or auditory hallucinations. Fair sleep. He reports suicidal ideation and has thought of cutting his wrist with the set of knifes he has at home. He has been on cymbalta mostly for neuropathy even prior to CVA. He was also on lexapro 20mg po daily. Past Psychiatric History: Inpatient: none OP: none Past trials: lexapro, cymbalta Hx of suicide attempts: none Medical Evaluation Reviewed: Yes HOSPITAL COURSE Mr. Bear was admitted on a CV and placed on 15 minutes checks for safety. Pt was switched from cymbalta to effexor for symptoms of depression. Pt gradually reported improvement in mood and denied SI/HI. He was sleeping well. He continued to have elevated SBP 190-200/ DBP>100, Hr <100. Pt reported dizziness, unsteady gait. Stat consult to hospitalist to r/o CVA. EKG also ordered which did not show ST changes. Head CT concerning for new acute CVA. Pt transferred to medicine. Status at Discharge Cognitive/behavioral status at discharge: Pt with dizziness, lightheadedness. No SI/HI. No psychosis or delusions Alert, oriented x 3. No speech impairments. Functional status at discharge: independent ambulation Overall status at discharge: patient is not back to baseline Time Spent with Patient Time attestation: Total time managing care of this patient today ____ minutes. Time spent: Greater than 30 minutes Discharge Plan Discharge Anticipated Discharge Date/Time: 02/14/23 21:35 Patient Disposition: Xfer Acute Care Hospital Discharge Diagnosis: MDD, recurrent, moderate Referrals: Cony Joy (Case Management) [Other] - 1 Week (*Cony is the returned case inspector through your insurance company. They can set you up with additional support services in the community. Please reach out to her at the phone number listed above. ) Gaurang Valdez MD [Primary Care Provider] - 1 Week Discharge Medications: New atorvastatin 20 mg Tablet 20 mg PO BEDTIME Qty: 0 0RF carvedilol 12.5 mg Tablet 12.5 mg PO BID Qty: 0 0RF Protocol: Hold for SBP/HR < HOLD for SBP < : 90 HOLD for HR < : 60 warfarin [Jantoven] 10 mg Tablet 15 mg PO DAILY@1800 Qty: 0 0RF amlodipine 5 mg Tablet 5 mg PO DAILY Qty: 0 0RF Protocol: Hold for SBP< HOLD for SBP < : 90 Entresto 49-51 mg Tablet 1 tab PO BID Qty: 0 0RF Protocol: Hold for SBP< HOLD for SBP < : 90 venlafaxine 75 mg Capsule,Extended Release 24hr 75 mg PO DAILY Qty: 0 0RF metformin 1,000 mg Tablet 1,000 mg PO DAILY Qty: 0 0RF topiramate 100 mg Tablet 100 mg PO BID Qty: 0 0RF Discontinued carvedilol 6.25 mg tablet 6.25 mg PO BID atorvastatin 20 mg tablet 20 mg PO DAILY midodrine 5 mg tablet 5 mg PO BID Patient Comments: Pt states he takes 5mg tabs BID trazodone 100 mg tablet 100 mg PO BEDTIME PRN (Reason: Insomnia) metformin 1,000 mg tablet 1,000 mg PO DAILY topiramate 100 mg tablet 100 mg PO BID duloxetine 30 mg capsule,delayed release(DR/EC) 30 mg PO BID warfarin 5 mg tablet 10 - 15 mg PO DAILY Patient Comments: Pt states he was taking 3 tablets totaling 15mg q hs last taken on 02/05/23 Entresto 24-26 mg tablet 1 tab PO BID Patient Comments: not given in [facility] per pt Discharge Orders: Discharge Order (Routine); Ordered 02/14/23 Ordered By: Rabia Fritz Diet: Diabetic diet Activity on Discharge: As tolerated Stand Alone Forms: Patient Portal Discharge page Care Plan Goals: maintain mood Health Concerns[place] [facility] [place] of Treatment: transfer [place] [facility] Assessment: transfer [place] [facility] r/o CVA
[2023-02-14 21:42] LABS: Glucose, Whole Blood 178 mg/dL (60-115)
== END 2023-02-14 23:57 | disposition short-term general hospital (02) | DRG 751 ==
PROVIDERS: Psychiatry & Neurology Psychiatry; Student in an Organized Health Care Education/Training Program; Admitting Provider Psychiatry & Neurology Psychiatry; PCP Hospitalist; Visit Provider Psychiatry & Neurology Psychiatry
DX: F33.2 Major depressive disorder, recurrent severe without psychotic features (principal); R45.851 Suicidal ideations; E11.9 Type 2 diabetes mellitus without complications; I10 Essential (primary) hypertension; R79.1 Abnormal coagulation profile; I95.1 Orthostatic hypotension; E78.5 Hyperlipidemia, unspecified; I69.398 Other sequelae of cerebral infarction; Z86.718 Personal history of other venous thrombosis and embolism; Z79.01 Long term (current) use of anticoagulants; Z79.84 Long term (current) use of oral hypoglycemic drugs; Z79.899 Other long term (current) drug therapy
CPT/HCPCS: 36415; 70450; 80053; 80061; 80076; 82607; 82746; 82947; 83036; 84439; 84443; 85025; 85610; 93005

== ENCOUNTER → 2023-02-07 20:08 | Outpatient (BNV) | payer OTHER, SELFPAY | PROVIDERS: Admitting Provider Psychiatry & Neurology Psychiatry; PCP Hospitalist; Visit Provider Psychiatry & Neurology Psychiatry | DX: F33.2 Major depressive disorder, recurrent severe without psychotic features (principal) | CPT/HCPCS: 99499 ==

== ENCOUNTER → 2023-02-07 20:08 | Outpatient (BNV) | payer OTHER, SELFPAY | PROVIDERS: Admitting Provider Psychiatry & Neurology Psychiatry; PCP Hospitalist; Visit Provider Psychiatry & Neurology Psychiatry | DX: F33.2 Major depressive disorder, recurrent severe without psychotic features (principal); I10 Essential (primary) hypertension | CPT/HCPCS: 90792; 99231; 99232; 99239 ==

== ENCOUNTER → 2023-02-07 20:08 | Outpatient (BNV) | payer OTHER, SELFPAY | PROVIDERS: Admitting Provider Psychiatry & Neurology Psychiatry; PCP Hospitalist; Visit Provider Student in an Organized Health Care Education/Training Program | DX: I10 Essential (primary) hypertension (principal); E11.9 Type 2 diabetes mellitus without complications | CPT/HCPCS: 99222; 99499 ==

== ENCOUNTER → 2023-02-14 21:38 | Outpatient (BNV) | payer OTHER, SELFPAY | PROVIDERS: Admitting Provider Student in an Organized Health Care Education/Training Program; Visit Provider Student in an Organized Health Care Education/Training Program | DX: I63.9 Cerebral infarction, unspecified (principal); I10 Essential (primary) hypertension | CPT/HCPCS: 99223; 99233; 99239 ==

== ENCOUNTER 2023-02-14 22:13 | Inpatient (IN) | payer OTHER, SELFPAY ==
--- NOTE | ~2023-02-14 | MR_ITS ---
EXAMINATION: MR BRAIN WITHOUT CONTRAST CLINICAL INFORMATION: Question acute stroke on prior head CT. COMPARISON: CT dated 02/14/2023. TECHNIQUE: Multiplanar, multisequence imaging of the brain was performed without contrast. FINDINGS: There is a focal area of signal abnormality in the inferior left occipital lobe measuring 1.1 cm in size with T1 hyperintensity. On the T2-weighted acquisition, there is central hyperintensity and a peripheral rim of low signal. Mild surrounding vasogenic edema also evident. No acute territorial infarction identified. A few scattered chronic lacunar infarcts in the cerebellum. Fjjnxgxm-qo-kbhfld chronic small vessel ischemic changes are noted in the cerebral white matter and brainstem. There are additional confluent signal changes in the bitemporal periventricular white matter. A few small linear foci of T2 hyperintensity are present in the body of the corpus callosum on the sagittal T2 FLAIR-weighted sequence. There are numerous scattered chronic microhemorrhages throughout the cerebellum, in the brainstem, and in the deep yin matter structures, particularly in the thalami bilaterally. There is a slightly larger area of hemosiderin staining in the dorsal left thalamus as well. Additional chronic microhemorrhages are seen predominantly at the yin-white matter junction in both cerebral hemispheres. The ventricles are normal in size. No mass effect or midline shift is seen. No extra-axial fluid collections are seen. The craniovertebral junction and marrow signal are normal. The major intracranial flow voids at the level of the three affiliated of [place] are preserved. The dural venous sinus flow voids are maintained. The mastoid air cells and paranasal sinuses are fairly well aerated. MR/MR head/brain wo con IMPRESSION: An approximate 1.1 cm focus of soft tissue abnormality in the inferior left occipital lobe with mild surrounding vasogenic edema is suspected to represent a small late subacute parenchymal hematoma. Extensive chronic white matter microangiopathy with scattered chronic microhemorrhages. Imaging findings may signify underlying chronic hypertensive encephalopathy; clinically correlate. Amyloid angiopathy is typically seen in older patients with a pattern of peripheral predominance of chronic microhemorrhages. Signal changes also seen within the bitemporal periventricular white matter and corpus callosum that may also be due to chronic microangiopathy. The possibility of coinciding underlying demyelinating disease cannot be ruled out and clinical correlation is recommended.
--- NOTE | 2023-02-14 22:35 | P.HPHOSP_ITS ---
History of Present Illness Date of Service: 02/14/23 Attending physician on admission: Clemente Garcia Chief Complaint: Lightheadedness and dizziness Pt is a 52-year-old male with a PMH significant for?HTN, HLD, [id number] diabetes type 2, CHF unspecified, TRAM on CPAP, hx of PE from right leg DVT on warfarin, orthostatic hypotension, hx of CVA in 08/2022, anxiety, and depression who was originally admitted to [facility] for increasing depression with SI with plan of running into traffic and HI with thoughts of randomly beating up people in the parking lot. While on the psych unit earlier today pt began experiencing lightheadedness and dizziness with walking and just feeling ?off? and not like himself. Reports feeling similar symptoms when he experienced a hemorrhagic stroke in August 2022 for which she was seen and evaluated at [facility] [place]. Patient denies headache or acute vision changes. No dysarthria, confusion, hemiparesis, numbness or tingling in any extremities. Patient does complain of increased swelling in his ankles bilaterally despite wearing compression stockings for the past 3 days. Denies shortness of breath, orthopnea, cough. No chest pain/pressure, palpitations. Denies fever, chills, N/V, abdominal pain. Patient received CT of head with results that were ?abnormal?. Did not find any midline shift or mass effect or hemorrhage, but subtle areas of decreased attenuation in the white matter of the brain could represent areas of white matter infarction or white matter disease. Also found in the left occipital region some decreased attenuation with some loss of yin- white matter differentiation that could be an area of more acute or subacute i nfarct. Recommendation is for MRI for further evaluation. Patient will be transferred from the Psychiatric Unit to the medical floor for further treatment and management of possible acute CVA. Review of Systems Review of Systems: Lightheadedness, dizziness S this morning Increased swelling in ankles bilaterally Denies headache, acute vision changes No dysarthria, hemiparesis, numbness or tingling in extremities Denies shortness of breath, orthopnea No chest pain/pressure, palpitations PMFSH Social History Household Members: None Housing: Apartment Do you presently have visiting nurse or other home services: No Patient Tobacco Use Status: Never used Tobacco e-Cigarette/Vaping Use: Never Used Advance Directives: No Advance Directives Information Provided: No service: No Sexual orientation: Straight/Heterosexual Meds Allergies Allergy/AdvReac Type Severity Reaction Status Date / Time dapagliflozin Allergy Unknown Verified 02/09/23 17:54 vancomycin Allergy Unknown Verified 02/08/23 03:44 Active Medications: Current Medications Acetaminophen (Acetaminophen 325 Mg Tablet) 650 mg PO Q6H PRN PRN Reason: Pain, Mild (Pain Scale 1-3) Benzonatate (Benzonatate 100 Mg Capsule) 100 mg PO TID PRN PRN Reason: Cough Docusate Sodium (Docusate Sodium 100 Mg Capsule) 100 mg PO DAILY PRN PRN Reason: Constipation Melatonin (Melatonin 3 Mg Tablet) 6 mg PO BEDTIME PRN PRN Reason: Insomnia Ondansetron HCl (Ondansetron Hcl 4 Mg/2 Ml Vial) 4 mg IVPUSH Q8H PRN PRN Reason: Nausea and Vomiting Sodium Chloride (0.9 % Sodium Chloride Flush 3 Ml Syringe) 3 ml IVFLUSH QSHIFT MARGIE Physical Exam Vital Signs and Narrative: Constitutional: Alert, in no acute distress. Mental Status: Oriented to person, place and time. Eyes: Pupils are equal, round, and reactive to light. Ear, Nose, and Throat: Oropharynx clear, mucous membranes moist. Ears and nose without deformities. Trachea midline. Respiratory: Clear to auscultation bilaterally. No wheezing, rales, or rhonchi. Cardiovascular: S1, S2 regular. No murmurs, rubs, or gallops. Gastrointestinal: Abdomen soft, non-tender, non-distended. Normal bowel sounds. Neurologic: Cranial nerves II-XII are grossly intact bilaterally. No focal neurological deficits. Moves all extremities spontaneously. Intact 5/5 strength of upper and lower extremities bilaterally. Intact sensation to light touch upper and lower extremities bilaterally. Heel to soto, ebaimx-gq-vint intact bilaterally. Skin: No rashes or lesions noted. Musculoskeletal: No cyanosis or clubbing. Extremities: Pt with knee-high compression stocking on, bilateral edema. Psychiatric: Normal mood and affect. Assessment and Plan (1) Abnormal CT scan, head: Status: Acute Plan Pt is a 52-year-old male with a PMH significant for?HTN, HLD, no k-marpebg-hnerywskr diabetes type 2, CHF unspecified, TRAM on CPAP, hx of PE from right leg DVT on warfarin, orthostatic hypotension, hx of CVA in 08/2022, anxiety, and depression who was originally admitted to [facility] for increasing depression with SI with plan of running into traffic and HI with thoughts of randomly beating up people in the parking lot. While on the psych unit earlier today pt began experiencing lightheadedness and dizziness with walking and just feeling ?off? and not like himself. Patient will be transferred from the Psychiatric Unit to the medical floor for further treatment and management of possible acute CVA. Abnormal CT of head, question of stroke Patient with lightheadedness, dizziness since this morning, reports experiencing similar symptoms when had CVA in August 2022; no focal deficits noted CT of head/brain ?abnormal? with possible evidence of acute or subacute infarct Patient on warfarin, though INR subtherapeutic at time of presentation, question of medication compliance Will get MRI of brain Continue statin, warfarin Neurology consult Lipid panel on 02/08/2023 with mildly elevated triglycerides at 168, total cholesterol of 121 with LDL 62 and HDL 26 PT/OT evaluation Monitor on telemetry HTN Patient has had uncontrolled HTN while on the psych unit with readings as high as 204/117 earlier today Continue amlodipine, carvedilol, Entresto Closely monitor BP Orthostatic hypotension Pt diagnosed with orthostatic hypotension at [facility] [facility] while hospitalized for CVA Will hold midodrine d/t HTN CHF unspecified Not in acute exacerbation Continue Entresto, carvedilol Patient currently not on diuretics Continue compression stockings Hx of right leg DVT with PE INR subtherapeutic at 1.9 at time of admission to psychiatry, fell as low as 1.3 Continue warfarin Monitor INR daily with goal between 2.0-3.0 Erj-zubtauj-mbkwzrkme diabetes type 2 Will hold metformin [address] on sliding scale insulin Diabetic diet HLD Continue statin Mood disorder Continue home meds Full Code Attending:?Dr. Garcia DVT Prophylaxis: On warfarin Pt will require a hospitalization of at least two nights for treatment of question of stroke with additional testing and specialist consultation. Quality Stroke Does the patient have a stroke diagnosis?: Yes Reason for No Anti-thrombotic by Day Two: Contraindicated (Outside of tPA window, already on warfarin) VTE Prior VTE?: Yes VTE Risk Level:: Medical - moderate - high VTE Device Contraindication: Treatment Not Indicated VTE Drug Contraindication: N/A - Med Ordered
--- OUTSIDE RECORDS SUMMARY | 2023-02-15 00:34 | XMS_ITS | Patient Health Record ---
Author Name Unknown Organization [facility] Address [address] [place] [address] Care Team Providers Care Customer Operations Associate Name Role Phone TORRI MOCK Primary Care Provider Gladys Blanco Unavailable [phone] ALLERGIES Allergen (clinical drug ingredient) Drug/Non Drug Allergy documented on EMR Reaction Allergy Type Onset Date Status vancomycin Vancomycin HCl Unknown Drug Allergy A ctive dapagliflozin Farxiga increased urination/blurry vision Drug Allergy Active RESULTS Component Value Reference Range Notes MICROALBUMIN, URINE Reviewed date:01/28/2023 01:08:42 PM Interpretation: Performing Lab:Testing performed or reported by [facility], a Service of [address] [address] Berhane Meredith MD, [facility] Counselor [facility]# [id number] Notes/Report: MICRO-ALBUMIN 413.0 (<20) MG/L The urine microalbumin test is designed to monitor renal function. When screening for Bence Levin proteinuria, urine electrophoresis is recommended. MALB/CREAT RATIO 319.1 (0-20) MG/GM URINE CREAT FOR MICRO ALBUMIN 129.4 LIPID PANEL Reviewed date:01/29/2023 01:13:47 PM Interpretation: Performing Lab:Testing performed or reported by [facility], a Service of [address] [address] Berhane Meredith MD, [facility] Counsel[facility]# [id number] Notes/Report: CHOLESTEROL, TOTAL 165 (<200) MG/DL TRIGLYCERIDE 234 (<150) MG/DL HDL CHOL 33 (>39) MG/DL LDL CHOLESTEROL, CALCULATED 85 (0-130) MG/DL NON HDL CHOLESTEROL (CALC) 132 (<160) MG/DL COMPREHENSIVE METABOLIC PANE L Reviewed date:01/29/2023 01:14:04 PM Interpretation: Performing Lab:Testing performed or reported by [facility], a Service of [address] [address] Berhane Meredith MD, [facility]# [id number] Notes/Report: GLUCOSE 138 (70-99) MG/DL BUN 21 [...] Interpretation: Performing Lab:Testing performed or reported by [facility], a Service of [address] [address] Berhane Meredith MD, [facility]# [id number] Notes/Report: HEMOGLOBIN A1C 6.0 (4.0-5.6) % MONITORING: In known diabetic patients, hemoglobin A1c targets should be discussed with health care provider. DIAGNOSTIC USE: The [place] Diabetes Association (ADA) and the World Health [...] Interpretation: Performing Lab:Testing performed or reported by [facility], a Service of [facility], [address] [place] [address] Berhane Meredith MD, [facility] Counsel[facility]# [id number] Notes/Report: PSA 3.1 (0-4) NG/ML TEST PERFORMED USING THE JESSICA ELECTROCHEMILLUMINESCENCE TOTAL PSA ASSAY. PSA VALUES OBTAINED WITH OTHER ASSAY METHODS OR KITS CANNOT BE USED INTERCHANGEABLY. ToxASSURE (R) Select 13 (Pre scription Drug Monitoring Screen) Reviewed date:05/09/2022 12:27:57 PM Interpretation: Performing Lab:Testing performed or reported by [facility], a Service of [facility], [address] [place] [address] Berhane Meredith MD, [facility] Counsel[facility]# [id number] Notes/Report: ToxASSURE(R) Select FINAL (NOTE) TOXASSURE SELECT 13 (MW) Test Result Flag Units Drug Present Lorazepam 144 ng/mg creat Source of lorazepam is a scheduled prescription medication. Test Result Flag Units Ref Range Creatinine 113 mg/dL > EQ 20 Declared Medications: Medication list was not provided. For clinical consultation, please call . CAMPYLOBACTER RESULTS Reviewed date:07/20/2022 10:51:18 AM Interpretation: Performing Lab:Testing performed or reported by [facility], a Service of [facility], [address] [place] [address] Berhane Meredith MD, [facility]# [id number] Notes/Report: CULTURE RESULT 1 Comment (NOTE) No Campylobacter species isolated. Test performed by [facility], [address] [place] [address] SALMONELLA/SHIGELLA RESULTS Reviewed date:07/20/2022 10:51:12 AM Interpretation: Performing Lab:Testing performed or reported by [facility], a Service of [facility], [address] [place] [address] Berhane Meredith MD, [facility] Counsel[facility]# [id number] Notes/Report: SCREEN RESULT 1 Comment (NOTE) No Salmonella or Shigella recovered. Test performed by [facility], [address] [place] [address] ROUTINE CULTURE, STOOL Reviewed date:07/20/2022 10:51:09 AM Interpretation: Performing Lab:Testing performed or reported by [facility], a Service of [facility], [address] [place] [address] Berhane Meredith MD, [facility] Counsel[facility]# [id number] Notes/Report: STOOL CULTURE SOURCE STOOL SALMONELLA/SHIGELLA SCREEN Final report CAMPYLOBACTER CULTURE Final report E COLI SHIGA TOXIN EIA NEGATIVE Reference range: NEGATIVE Test performed by [facility], [address] [place] [address] C. DIFFICILE TOXIN Reviewed date:07/17/2022 11:58:53 AM Interpretation: Performing Lab:Testing performed or reported by [facility], a Service of [facility], [place] [address] Berhane Meredith MD, [facility] Counselor [facility]# [id number] Notes/Report: C. DIFFICILE TOXIN Negative. C.Difficile bacterial antigen and toxin not detected. A (NGCDF7) negative test result does not rule out the possibility of C.Difficile associated disease. If clinical suspicion is high, consider resubmission after 7 days. LACTOFERRIN, STOOL Reviewed date:07/25/2022 04:22:19 PM Interpretation: Performing Lab:Testing performed or reported by [facility], a Service of [facility], [facility] [place] [address] Berhane Meredith MD, [facility]# [id number] Notes/Report: LACTOFERRIN, FECAL <1.00 Reference range: 0.00 [...] irritable bowel syndrome (IBS). Test performed at [address] [address] CALPROTECTIN,FECAL Reviewed date:07/20/2022 08:10:16 AM Interpretation: Performing Lab:Testing performed or reported by [facility], a Service of [facility], [place] [address] Berhane Meredith MD, [facility] Counsel[facility]# [id number] Notes/Report: CALPROTECTIN,FECAL 47 Reference range: 0 to 120 Unit: ug/g (NOTE) Concentration Interpretation Follow-Up <16 - 50 ug/g Normal None >50 -120 ug/g Borderline Re-evaluate in 4-6 weeks >120 ug/g Abnormal Repeat as clinically indicated Test performed at [address] [address] Xray: Foot Left-Min 3 Vws Reviewed date:05/22/2022 11:59:27 AM Interpretation: Performing Lab: Notes/Report: HEMOGLOBIN A1C WITH EST GLUC OSE Reviewed date:04/15/2022 09:56:04 PM Interpretation: Performing Lab:Testing performed or reported by [facility], a Service of [address] [address] Shaniqua Espitia MD, [facility] Counselor [employer]IA# [id number] Notes/Report: HEMOGLOBIN A1C 5.6 (4.0-5.6) % MONITORING: In known diabetic patients, hemoglobin A1c targets should be discussed with health care provider. DIAGNOSTIC USE: The [place] Diabetes Association (ADA) and the World Health [...] 43, Supplement 1 ESTIMATED AVERAGE GLUCOSE 114 BASIC METABOLIC PANEL Reviewed date:03/23/2022 03:13:38 PM Interpretation: Performing Lab:Testing performed or reported by [facility], a Service of [facility], [address] [place] [address] Shaniqua Espitia MD, [facility] Counselor CLIA# [id number] Notes/Report: GLUCOSE 131 (70-99) MG/DL BUN 28 [...] GFR from serum creatinine, age and sex. REASON FOR REFERRAL Reason ambulatory BP monito r Dr. Kat Diagnosis 1 Encounter for examin ation of blood pressure without abnormal findings (Z01.30) Diagnosis 2 Essential (primary) hypertension (I10) Referral Organization [facility] Referring Provider First Name TORRI Referring Provider Last Name [facility] Referring Provider Speciality Internal edicine Referred Provider [facility] Referred Provider Specialty Nephrology General Notes Faxed to Pilar Abdul Heather 10/10/2022 03:26:21 PM > Clinical Notes called [facility] phone# [phone] pt. canceled his appt. on 10/31/2022., Niko Hernandez 11/12/2022 09:06:46 AM > Referral Priority Routine Reason Right HERNANDEZ Diagnosis 1 Retinal artery branc h occlusion, right eye (H34.231) Referral Organization [facility] Referring Provider First Name TORRI Referring Provider Last Name [facility] Referring Provider Speciality Internal edicine Referred Provider Specialty Ophthalmolog y General Notes Faxed to [facility] Pilar murray Heather 10/11/2022 09:35:05 AM > Clinical Notes called [facility] they schedule pt. 11/15/2022 10am. Patient is aware., Niko Hernandez 11/09/2022 03:16:31 PM > Referral Priority Routine Reason intracerebral hemorr shan Diagnosis 1 Nontraumatic intrace rebral hemorrhage, unspecified (I61.9) Referral Organization [facility] Referring Provider First Name TORRI Referring Provider Last Name [facility] Referring Provider Speciality Internal [facility] Referred Provider [facility]erred Provider Specialty Neurology General Notes Referral faxed to Lv hernandez [facility] Heather 10/10/2022 04:29:52 PM >, pt already a pt at [facility]. He will call himself to make appt, Arabella Mcghee 10/22/2022 01:26:00 PM > Referral Priority Routine Reason Bilateral Lower Extr emity Neuropathy Diagnosis 1 Unspecified mononeur opathy of bilateral lower limbs (G57.93) Referral Organization [facility] Referring Provider First Name [facility] Referring Provider Last Name [facility] Referring Provider Speciality [facility] Referred Provider Specialty Physical The rapist General Notes Referral request jonathan uld be sent through fax first before setting up an appt. [facility] [address] [place], [place] phone# [phone] w/ fax# [phone]. Office will call pt for appt., Niko Hernandez 07/06/2022 10:43:08 PM > Referral Priority Routine Reason Uncontrolled Hyperte nsion Diagnosis 1 Essential (primary) hypertension (I10) Referral Organization [facility] Referring Provider First Name WILD Referring Provider Last Name [facility] Referring Provider Speciality [facility] Referred Provider Specialty Nephrology General Notes Referral request jonathan uld be sent through fax first before setting up an appt. Sent referral to [facility] [place] , phone # [phone] w/ fax# [phone]. Office will call pt for appt., Niko Hernandez 04/20/2022 12:24:40 AM > Clinical Notes called [facility] [place] advised pt. is scheduled 07/18/2022 1:30pmMary Ceasar 07/12/2022 01:29:10 AM > Referral Priority Routine Reason fainting, chest pain needs clearance for work Diagnosis 1 Other pulmonary embo lism without acute cor pulmonale (I26.99) Diagnosis 2 Chronic systolic (co ngestive) heart failure (I50.22) Referral Organization [facility] Referring Provider First Name WILD Referring Provider Last Name [facility] Referred Provider Specialty Cardiology General Notes faxed to [phone] as that is where pt has gone., Arabella Mcghee 03/19/2022 04:06:00 PM >, Called [facility] Cardiology #[phone]. Unable to schedule appt. until pt. is seen for his initial appt. on 03/28 1:30pm., Niko Hernandez 03/22/2022 03:24:37 AM > Clinical Notes Called [facility] Cardiology pt. have an scheduled Echocardiogram on 05/30/2022 1:00pm Referral Priority Routine Reason Syncope. Diabetic ne uropathy Diagnosis 1 Diabetes mellitus du e to underlying condition with diabetic neuropathy, unspecified (E08.40) Diagnosis 2 Syncope and collapse (R55) Referral Organization [facility] Referring Provider First Name TORRI Referring Provider Last Name [facility] Referring Provider Speciality Internal edicine Referred Provider Specialty Neurology General Notes patient asking about this ref, Mavis Nuno 03/21/2022 10:27:52 AM >, Referral request should be sent through fax first before setting up an appt. Sent referral to [facility] - [address] [place] [address], [address] [place] [address] phone # [phone] w/ fax# [phone]., Niko Hernandez 03/22/2022 03:34:00 AM > Clinical Notes faxed to [facility] as pt already sees the doctor there., Arabella Mcghee 03/26/2022 04:22:15 PM >, called [facility] - [phone] advised to refax referral to fax# [phone]. Patient was admitted on [facility] from . Have a virtual visit appt on 04/10 for Stroke. Refaxed: 04/05/2023., Niko Hernandez 04/06/2022 04:28:32 AM > Referral Priority Urgent Reason Pulmonary embolism Diagnosis 1 Other pulmonary embo lism without acute cor pulmonale (I26.99) Referral Organization [facility] Referring Provider First Name TORRI Referring Provider Last Name JESSIE Referring Provider Speciality Internal edicine Referred Provider Specialty Hematology General Notes Referral request jontahan armenta be sent through fax first before setting up an appt. Sent referral to [facility] in [address] [place] [address] , phone # [phone] w/ fax# [phone]. Office will call pt for appt.Mary Ceasar 03/22/2022 03:03:09 AM > Clinical Notes called [facility] advised no schedule yet for pt. was transferred to New Patient Coordinator lvm will refax referral. Refaxed: 06/13/2022., Niko Hernandez 06/13/2022 10:34:15 PM >, [facility] called in requested to refax, unable to read notes, blurry. Pls fax it manually to fax# [phone]., Niko Hernandez 06/14/2022 02:54:25 AM >, faxed.Pilar Heather 06/13/2022 02:47:06 PM >, Received a fax from [facility] pt. is schedule on 07/12/2022 1:30pm with Dr. Staples., Niko Hernandez 06/16/2022 05:23:28 AM > Referral Priority Routine Reason history of CVA [place] Diagnosis 1 Personal history of transient ischemic attack (TIA), and cerebral infarction without residual deficits (Z86.73) Referral Organization [facility] Referring Provider First Name WILD Referring Provider Last Name JESSIE Referring Provider Speciality Internal M edicine Referred Provider [facility] Referred Provider Specialty Physical The rapist General Notes [place] [facility] [place] 11/08/2022 11:59:35 AM > Clinical Notes called [facility] in [place] was advised referral was received, they will be reaching out to the pt. Will follow-up.Mary Ceasar 11/23/2022 03:40:03 PM > Referral Priority Routine [...] Vaccine Route Administration Date Status Comme nts Fluzone QD IM Intramuscular 01/24/2023 Administered COVID Moderna Unknown 03/11/2021 Administered COVID Fanta Unknown 11/02/2020 Administered SOCIAL HISTORY Tobacco Use: Social History [...] Tinea pedis (B35.3) Active confirmed Tinea pedis (9085256) Problem Vitamin B12 deficiency anemia due to intrinsic factor deficiency (D51.0) Active confirmed Pernicious anem ia (04423995) Problem Diabetes mellitus due to underlying condition with diabetic neuropathy, unspecified (E08.40) Active confirmed Diabetic neuropathy (397685689) Problem Type 2 diabetes mellitus with unspecified complications (E11.8) Active confirmed Disorder due to type 2 diabetes mellitus (893273343) Problem Morbid (severe) obesity due to excess calories (E66.01) Active confirmed Morbid obesity (disorder) (393062836) Problem Major depressive disorder, recurrent, mild (F33.0) Active confirmed Mild recurrent major depression (13933599) Problem Anxiety disorder, unspecified (F41.9) Active confirmed Anxiety disorde r (187200706) Problem Male erectile disorder (F52.21) Active confirmed Male erect ile disorder (347686993) Problem 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) Active confirmed Transient ischemic attack (743121854) Problem Insomnia, unspecified (G47.00) Active confirmed Insomnia (601533934) Problem Obstructive sleep apnea (adult) (pediatric) (G47.33) Active confirmed Obstructive sle ep apnea syndrome (disorder) (20449482) Problem Hereditary and idiopathic neuropathy, unspecified (G60.9) Active confirmed Hereditary disorder of nervous system (300278706) Problem Polyneuropathy, unspecified (G62.9) Active confirmed Polyneuropathy (76409761) Problem Retinal artery branch occlusion, right eye (H34.231) Active confirmed Arterial retina l branch occlusion (20159230) Problem Essential (primary) hypertension (I10) Active confirmed Essential hypertension (36732741) Problem Other pulmonary embolism without acute cor pulmonale (I26.99) Active confirmed Pulmonary Embolism (41114411) Problem Chronic systolic (congestive) heart failure (I50.22) Active confirmed Chronic systoli c heart failure (237296798) Problem Nontraumatic intracerebral hemorrhage, unspecified (I61.9) Active confirmed Nontraumatic intracerebral hemorrhage (005212582228319) Problem Cerebral infarction, unspecified (I63.9) Active confirmed Cerebral infarction (665739758) Problem Edema, unspecified (R60.9) Active confirmed Edema (04309892) Problem Solitary pulmonary nodule (R91.1) Active confirmed Solitary pulmonary nodule (050018144) Problem Personal history of pulmonary embolism (Z86.711) Active confirmed History of pulmonary embolus (272113938) Problem Hyperlipidemia, unspecified (E78.5) Active confirmed Hyperlipidemia (14923583) Problem Unspecified mononeuropathy of bilateral lower limbs (G57.93) Active confirmed Mononeuropath y of lower limb (294769427) VITAL SIGNS Heart Rate 92 /min 01/24/2023 Temperature 98.2 degrees Fahrenheit 01/24/2023 Oximetry 97 % 01/24/2023 Blood pressure diastolic 90 mm Hg 01/24/2023 Height 66.61 in 01/24/2023 Blood pressure systolic 138 mm Hg 01/24/2023 Weight 210 lbs 01/24/2023 BMI 33.27 kg/m2 01/24/2023 Encounters Encounter Location Date Provider Diagnosis [facility] [address] [place] [address] 02/21/2022 [facility] [address] [place] [address] 04/18/2022 [facility] [address] [place] [address] 05/10/2022 [facility] [address] [place] [address] 05/16/2022 [facility] [address] [place] [address] 06/07/2022 [facility] [address] [place] [address] 08/28/2022 [facility] [address] [place] [address] 02/05/2023 [facility] [address] [place] [address] 02/07/2023 [facility] [address] [place] [address] 02/11/2023 [facility] [address] [place] [address] 03/07/2022 [facility] Essential (primary) hypertension I10 ; Anxiety disorder, unspecified F41.9 ; Other pulmonary embolism without acute cor pulmonale I26.99 ; Hyperlipidemia, unspecified E78.5 ; Chronic systolic (congestive) heart failure I50.22 ; 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 ; Morbid (severe) obesity due to excess calories E66.01 and Dietary counseling and surveillance Z71.[address] [address] 03/21/2022 Gladyshay Blanco Essential (primary) hypertension I10 ; Anxiety disorder, unspecified F41.9 ; Other pulmonary embolism without acute cor pulmonale I26.99 ; Hyperlipidemia, unspecified E78.5 ; Chronic systolic (congestive) heart failure I50.22 ; 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 ; Morbid (severe) obesity due to excess calories E66.01 and Dietary counseling and surveillance Z71.[address] [address] 04/27/2022 WILD GUL Diabetes mellitus du e to underlying condition with diabetic neuropathy, unspecified E08.40 ; Essential (primary) hypertension I10 ; Anxiety disorder, unspecified F41.9 ; Hyperlipidemia, unspecified E78.5 and Other pulmonary embolism without acute cor pulmonale I26.[address] [address] 05/04/2022 WILD GUL Essential (primary) hypertension I10 ; Other pulmonary embolism without acute cor pulmonale I26.99 ; Dental caries, unspecified K02.9 and Anxiety disorder, unspecified F41.[address] [address] 05/23/2022 WILD GUL Diabetes mellitus du e to underlying condition with diabetic neuropathy, unspecified E08.40 ; Essential (primary) hypertension I10 ; Hyperlipidemia, unspecified E78.5 and Anxiety disorder, unspecified F41.[address] [address] 06/04/2022 WILD GUL Diabetes mellitus du e to underlying condition with diabetic neuropathy, unspecified E08.40 ; Essential (primary) hypertension I10 ; Anxiety disorder, unspecified F41.9 and Other pulmonary embolism without acute cor pulmonale I26.[address] [address] 07/11/2022 WILD GUL Polyneuropathy, unspecified G62.9 ; Anxiety disorder, unspecified F41.9 ; Other pulmonary embolism without acute cor pulmonale I26.99 and Diarrhea, unspecified R19.[address] [address] 08/08/2022 WILD GUL Essential (primary) hypertension I10 ; Anxiety disorder, unspecified F41.9 ; Hyperlipidemia, unspecified E78.5 and Diabetes mellitus due to underlying condition with diabetic neuropathy, unspecified E08.[address] [address] 10/10/2022 WILD GUL Nontraumatic intracerebral hemorrhage, unspecified I61.9 ; Essential (primary) hypertension I10 ; Type 2 diabetes mellitus with unspecified complications E11.8 ; Chronic systolic (congestive) heart failure I50.22 and Orthostatic hypotension I95.[address] [address] 11/07/2022 WILD GUL Essential (primary) hypertension I10 ; Cerebral infarction, unspecified I63.9 ; Hyperlipidemia, unspecified E78.5 ; Chronic systolic (congestive) heart failure I50.22 ; Anxiety disorder, unspecified F41.9 and Insomnia, unspecified G47.[address] [address] 12/27/2022 WILD GUL Essential (primary) hypertension I10 ; Diabetes mellitus due to underlying condition with diabetic neuropathy, unspecified E08.40 ; Hyperlipidemia, unspecified E78.5 ; Chronic systolic (congestive) heart failure I50.22 ; Anxiety disorder, unspecified F41.9 and Polyneuropathy, unspecified G62.[address] [address] 01/24/2023 WILD GU Diabetes mellitus du e [...] prostate Z12.5 and Encounter for immunization Z23 [facility] [address] [place] [address] 02/15/2022 [facility] [address] [place] [address] 02/26/[address] [address] 02/27/[address] [address] 03/01/[address] [address] 03/02/[address] [address] 03/13/[address] [address] 03/13/[address] [address] 03/14/[address] [address] 03/16/[address] [address] 03/20/[address] [address] 03/20/[address] [address] 03/27/[address] [address] 03/28/2022 [facility] [address] [place] [address] 03/30/2022 WILD GUL Anxiety disorder, unspecified F41.9 [facility] [address] [place] [address] 04/03/2022 [facility] [address] [place] [address] 04/10/2022 WILD GU Personal history of pulmonary embolism Z86.711 [facility] [address] [place] [address] 04/19/2022 Gladys Bella Anxiety disorder, unspecified F41.9 [facility] [address] [place] [address] 04/27/2022 [facility] Anxiety F41.9 [facility] [address] [place] [address] 05/03/[address] [address] 05/04/2022 [facility] [address] [place] [address] 05/09/[address] [address] 05/09/[address] [address] 05/17/[address] [address] 05/21/2022 [facility] [address] [place] [address] 05/23/[address] [address] 05/24/2022 [facility] [address] [place] [address] 05/25/2022 [facility] [address] [facility] [place] [place] [address] 05/29/2022 [facility] [address] [facility] [place] [place] [address] 06/05/2022 [facility] [address] [place] [address] 06/06/2022 [facility] [address] [facility] [place] [place] [address] 06/07/2022 [facility] [address] [facility] [place] [address] 06/11/2022 [facility] [address] [facility] [place] [place] [address] 06/13/2022 [facility] [address] [place] [address] 06/14/2022 [facility] [address] [facility] [place] [place] [address] 06/18/2022 [facility] [address] [facility] [place] [address] 06/19/2022 [facility] [address] [facility] [place] [address] 06/21/2022 [facility] [address] [facility] [place] [place] [address] 06/26/2022 [facility] [address] [place] [address] 06/28/2022 [facility] [address] [place] [address] 07/11/2022 [facility] [address] [place] [address] 07/16/2022 [facility] [address] [place] [address] 07/24/2022 [facility] [address] [place] [address] 07/27/2022 [facility] [address] [place] [address] 08/13/2022 [facility] [address] [place] [address] 08/16/2022 [facility] [address] [place] [address] 08/20/2022 [facility] [address] [place] [address] 08/22/2022 [facility] [address] [place] [address] 08/29/2022 [facility] [address] [place] [address] 09/03/2022 [facility] [address] [place] [address] 09/03/2022 [facility] [address] [place] [address] 09/04/2022 [facility] [address] [place] [address] 09/28/2022 [facility] Type 2 diabetes mellitus with unspecified complications E11.8 and Anxiety disorder, unspecified F41.9 [facility] [address] [place] [address] 09/28/2022 [facility] [address] [place] [address] 10/05/2022 [facility] [address] [place] [address] 10/08/2022 [facility] [address] [place] [address] 10/08/2022 [facility] [address] [facility] [place] [address] 10/09/2022 [facility] [address] [place] [address] 10/15/2022 [facility] [address] [place] [address] 10/17/2022 [facility] [address] [place] [address] 10/19/2022 [facility] [address] [place] [address] 10/23/2022 [facility] [address] [place] [address] 10/25/2022 [facility] [address] [place] [address] 10/25/2022 [facility] Anxiety disorder, unspecified F41.9 [facility] [address] [place] [address] 10/26/2022 [facility] [address] [place] [address] 10/30/2022 [facility] [address] [place] [address] 11/14/2022 [facility] [address] [place] [address] 11/15/2022 [facility] [address] [place] [address] 11/23/2022 [facility] [address] [place] [address] 12/04/2022 [facility] [address] [place] [address] 01/10/2023 [facility] [address] [place] [address] 01/22/2023 [facility] [address] [place] [address] 01/29/2023 [facility] [address] [place] [address] 02/04/2023 [facility] [address] [place] [address] 02/05/2023 [facility] [address] [place] [address] 02/05/2023 [facility] [address] [place] [address] 02/06/2023 [facility] ASSESSMENTS Encounter Date Diagnosis Assessment Notes Treatment Notes Treatment Clinical Notes 03/07/2022 Essential (primary) hypertension (ICD-10 - I10) [...] 04/27/2022 Essential (primary) hypertension (ICD-10 - I10) 04/27/2022 Anxiety (ICD-10 - F41.9) 05/04/2022 Essential [...] 05/04/2022 Dental caries, unspecified (ICD-10 - K02.9) 04/27/2022 Anxiety disorder, unspecified (ICD-10 - F41.9) 03/21/2022 Other pulmonary embolism without acute cor pulmonale (ICD-10 - I26.99) 03/07/2022 Other pulmonary embolism without acute cor pulmonale (ICD-10 - I26.99) 03/07/2022 Hyperlipidemia, unspecified (ICD-10 - E78.5) 03/21/2022 Hyperlipidemia, unspecified (ICD-10 - E78.5) 04/27/2022 Hyperlipidemia, unspecified (ICD-10 - E78.5) 05/04/2022 Anxiety disorder, unspecified (ICD-10 - F41.9) [...] F41.9) 10/10/2022 Orthostatic hypotension (ICD-10 - I95.1) 04/27/2022 Other pulmonary embolism without acute cor pulmonale (ICD-10 - I26.99) 03/21/2022 Chronic systolic (congestive) heart failure (ICD-10 - I50.22) 03/07/2022 Chronic systolic (congestive) heart failure (ICD-10 - I50.22) 03/07/2022 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) 03/21/2022 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) 12/27/2022 Polyneuropathy, unspecified (ICD-10 - G62.9) 11/07/2022 Insomnia, unspecifie d (ICD-10 - G47.00) 01/24/2023 Polyneuropathy, unspecified (ICD-10 - G62.9) 01/24/2023 Other pulmonary embolism without acute cor pulmonale (ICD-10 - I26.99) 03/21/2022 Morbid (severe) obesity due to excess calories (ICD-10 - E66.01) 03/07/2022 Morbid (severe) obesity due to excess calories (ICD-10 - E66.01) 03/07/2022 Dietary counseling and surveillance (ICD-10 - [...] (COMPLETE BLOOD COUNT) 12/17/2019 COMPREHENSIVE METABOLIC PANEL 06/15/2021 COMPREHENSIVE METABOLIC PANEL 02/13/2019 COMPREHENSIVE METABOLIC PANEL 03/21/2022 CREATININE 12/26/2018 HEMOGLOBIN A1C 04/23/2019 HEMOGLOBIN A1C 06/15/2021 HEMOGLOBIN A1C 02/13/2019 LIPID PANEL 02/13/2019 LIPID PANEL 06/15/2021 MICROALBUMIN, URINE 06/15/2021 MICROALBUMIN, URINE 02/13/2019 PROTIME PROFILE 12/26/2018 PROTIME PROFILE 06/29/2021 FECAL WHITE CELLS 01/26/2022 PT/INR 10/09/2017 PT/INR 10/04/2017 PT/INR 05/01/2018 URINALYSIS 07/04/2018 Basic Metabolic Panel 12/23/2019 Chlamydia and Gonorrhea, Urine (APTIMA) 07/04/2018 Hemoglobin A1C 12/23/2019 Hemoglobin A1C 05/01/2018 Hemoglobin A1C 12/19/2017 Future Test Test Name Order Date CULTURE, STOOL 07/12/2022 C. DIFFICILE TOXIN PCR 07/12/2022 COMPREHENSIVE METABOLIC PANEL 08/09/2022 HEMOGLOBIN A1C WITH EST GLUCOSE 08/10/19 LIPID PANEL 08/09/2022 MICROALBUMIN, URINE 08/09/2022 Insurance Providers Payer Name Payer Address Payer Phone Subscriber Number Group Number Insured Name Patient Relationship to Insured Coverage Start Date Coverage End Date [facility] [address] [place] [address] [id number] Ayden Bear Self - patient is the insured MEDICATIONS ADMINISTERED Medication Instructions Date of Administration Dosage Notes Vitamin B-12 05/27/2020 MEDICAL (GENERAL) HISTORY Medical History History ICD Code hypertension, benign Qjb-Jpqrfjv-cvxartyvp diabetes mellitus type 2 Class III obesity [...] and question of amyloid in 2019 at [facility] Lactic acidosis acute kidney injury 2021 TAMAR- Talk to Giovanni Nichols Therapist CVA with no residual deficit Surgical History Surgery Date(Month/Year) cholecystectomy cardiac cath Hospitalization History Reason Date(Month/Year) antonio lactic acidosis 2021 blood clot in lung
[2023-02-15 04:22] VITALS: BP 168/76; PULSE 68; RESP 18; TEMP 36.7; O2SAT 96
[2023-02-15 06:44] LABS: Hemoglobin 13.9 g/dl (14.0-18.0); Mean Corpuscular HGB Conc 33.1 g/dl (31.0-36.0); Mean Corpuscular Hemoglobin 26.6 pg (27.0-33.0); Mean Corpuscular Volume 80.3 fL (80.0-98.0); Mean Platelet Volume 11.8 fL (9.4-12.4); Platelet Count 209 X10*3/uL (160-400); Red Blood Count 5.23 X10*6/uL (4.60-5.80); Red Cell Distribution Width 14.6 % (11.0-16.0); White Blood Count 9.4 X10*3/uL (4.8-10.8)
[2023-02-15 06:53] LABS: INTERNATIONAL NORM RATIO 2.2 (0.9-1.1); Prothrombin Time 27.2 SEC (11.1-13.3)
[2023-02-15 06:54] LABS: Anion Gap 11 (12-20); Blood Urea Nitrogen 23 mg/dL (9-16); Calcium 8.9 mg/dL (8.4-10.2); Carbon Dioxide 25 mmol/L (22-29); Chloride 110 mmol/L (96-108); Estimated Glomerular Filt Rate > 60; Glucose Random 129 mg/dL (60-115); Potassium 3.5 mmol/L (3.3-5.1); Sodium 142 mmol/L (135-145)
--- NOTE | 2023-02-15 07:00 | CA_ITS ---
Transthoracic Echocardiogram Patient (Last, First, Middle): Ayden Bear, Gender: Male Date of : 1970 Age: 52 Procedure Date: 02/15/2023 Procedure Type: Transthoracic Echocardiogram [place] [facility] [place] Height: 167.64 cm Weight: 98.69 kg BSA: 2.07 m2 Heart Rate: 69 bpm BP: 168 / 83 mmHg Splitting Machine Operator: ROLAN Referring MD: Alverto Wyatt DO Symptoms: CVA Study Quality: Fair/w Contrast ECG Rhythm: Sinus Conclusions: - Moderately increased left ventricular cavity size. There is severely increased left ventricular wall thickness. The left ventricular systolic function is normal. The visually estimated ejection fraction is between 55-60%. - E/E prime ratio is >15, consistent with elevated filling pressures. - Mildly increased right ventricular cavity size. There is normal right ventricular systolic function. - The left atrium is moderately dilated. There is no evidence of interatrial shunt by agitated saline. The right atrium is normal in size. - There is mild dilatation of the sinuses of Valsalva measuring 4.50 cm and mild dilatation of the ascending aorta measuring 4.10 cm. Findings Procedure Information Contrast agent, definity, is being given per protocol without apparent complications. Left Ventricle Moderately increased left ventricular cavity size. There is severely increased left ventricular wall thickness. The left ventricular systolic function is normal. The visually estimated ejection fraction is between 55 60%. There is no evidence of regional wall motion abnormalities. Abnormal diastolic function is noted. Spectral Doppler is indicative of an impaired relaxation filling pattern. E/E prime ratio is >15, consistent with elevated filling pressures. Right Ventricle Mildly increased right ventricular cavity size. There is normal right ventricular systolic function. Atria The left atrium is moderately dilated. There is no evidence of interatrial shunt by agitated saline. The right atrium is normal in size. Aortic Valve There is a normal trileaflet aortic valve. There is no aortic valve stenosis. There is trace (trivial) aortic valve regurgitation. Mitral Valve The mitral valve appears normal. There is no mitral valve regurgitation. There is no mitral valve stenosis. Pulmonic Valve The pulmonic valve is likely normal. Tricuspid Valve Normal tricuspid valve structure. There is no tricuspid valve regurgitation. Tricuspid regurgitation envelope is inadequate for calculation of right ventricular systolic pressure. Normal right atrial pressure. Great Vessels The pulmonary artery was not well visualized. There is mild dilatation of the sinuses of Valsalva measuring 4.50 cm and mild dilatation of the ascending aorta measuring 4.10 cm. Venous The inferior vena cava is normal in size and collapses greater than 50% with inspiration. Pericardium/Pleural There is no evidence of pericardial effusion. Prior Study Comparison No prior study available for comparison. Measurements 2D Linear Measurements IVSd: 1.80 0.6-0.9/0.6-1.0 cm LVIDd: 5.80 3.9-5.3/4.2-5.9 cm LVIDd Index: 2.80 2.4-3.2/2.2-3.1 cm/m2 LVIDs: 4.70 2.0-3.6 cm LVPWd: 2.00 0.7-1.1 cm LA Diam: 4.50 2.7-3.8/3.0-4.0 cm LAIDs Index: 2.17 1.5-2.3 cm/m2 LV Mass: 717.21 67-162/88-224 g LV Mass Index: 346.48 43-95/49-115 g/m2 LVOT Diam: 2.70 3.0+(-)1.3 cm 2D Systolic Function EF 4C: 52.90 >55% EF 2C: 60.10 >55% EF BiP: 53.70 >55% Mitral Valve MV Pk E: 0.73 MV PK A: 0.69 MV Decel Time: 207.00 E/A: 1.10 E'Lateral: 4.05 E'Medial: 3.68 E/E' Med: 19.90 E/E' Lat: 18.10 PHT: 61.00 MVA PHT: 3.61 Decel Schoolcraft: 3.55 Aortic Valve AoV Pk Erick: 1.28 AoV Mn Erick: 0.90 AoV VTI: 0.26 AoV Pk Grad: 7.00 Aov Mn Grad: 4.00 AURE Cont.VTI: 4.21 LVOT LVOT Pk Erick: 0.93 LVOT Mn Erick: 0.58 LVOT VTI: 0.19 LVOT Pk Grad: 3.00 LVOT Mn Grad: 2.00 LVOT Diam: 2.70 LVOT Area: 5.73 Diastolic Function MV Pk E: 0.73 MV Pk A: 0.69 E/A: 1.10 E'Medial: 3.68 E/E' Med: 19.90 E' Laterial: 4.05 E/E' Lat: 18.10 Right Ventricle TAPSE (mm): 22.90 TVS' Erick: 12.00 Tricuspid Valve RA Press: 3.00 Great Vessels Aorta Sinus of Valsalva: 4.50 2.0-3.5 cm Ao Asc: 4.10 2.1-3.4 cm Pulmonary Valve PV Pk Erick: 0.91 Peak PV Grad: 3.00 Updated in Other Vendor System with Status of Final Jose Alberto Rincon MD electronically signed on 02/15/2023 3:39:05 PM with status of Final
--- NOTE | 2023-02-15 07:20 | PHA.MEDREC ---
Pharmacy Consult ? Medication Reconciliation Pharmacy has completed the medication reconciliation. Patient discharged from last night 02/14/23; reviewed medications from in house visit
[2023-02-15 07:24] VITALS: BP 169/93; PULSE 60; TEMP 36.6; O2SAT 99
[2023-02-15 07:57] VITALS: PULSE 60; O2SAT 99
[2023-02-15 08:26] LABS: Glucose, Whole Blood 132 mg/dL (60-115)
[2023-02-15] MEDS: amLODIPine Besylate 5 MG TABLET PO (08:33)
[2023-02-15] MEDS: Sacubitril/Valsartan 49/51 1 TAB TABLET PO ×2 (08:33→20:38)
[2023-02-15] MEDS: carvediloL 12.5 MG TABLET PO ×2 (08:33→20:38)
[2023-02-15] MEDS: 0.9 % Sodium Chloride Flush 3 ML SYRINGE IVFLUSH ×3 (08:34→20:39)
--- NOTE | 2023-02-15 09:15 | MHC.CM.PN ---
Addendum entered by Mae Gongora 02/15/23 15:56: CM RECEIVED A MESSAGE THAT PTS MOTHER HAD CALLED AND WAS REQUESTING A RETURN CALL CM SPOKE TO PT WHO GAVE PERMISSION TO RETURN MOTHERS CALL CM CALLED PTS MOTHER, CHATO [phone] SHE REPORTS SHE DOES NOT THINK THE PT IS SAFE TO GO HOME AT NE SHE SAYS HE IS STILL TELLING HER HE FEELS UNSAFE TO GO HOME SHE SAYS THE REGIONAL CONSTRUCTION MANAGER ON THE PSYCH FLOOR WAS SUPPOSED TO SET HIM UP WITH A PROGRAM BUT DID NOT COMPLETE IT BECAUSE HE WAS SENT TO THE MED FLOOR Original Note: PT REPORTS HE LIVES ALONE AND IS INDEPENDENT WITH CARE HE DENIES USE OF DME OR HOME SERVICES PT STATES HE HAS A HCP NAMING HIS MOTHER HIS AGENT HE SAYS HIS PCP IS DR [facility] TBD PENDING CARE TEAM EVAL ONCE MEDICALLY CLEARED IPLOC VS HOME WITH NO SERVICES PT WILL NEED TRANSPORTATION ARRANGED
[2023-02-15 10:02] LABS: Glucose, Whole Blood 114 mg/dL (60-115)
[2023-02-15] MEDS: hydrOXYzine HCL 25 MG TABLET PO (11:14)
--- NOTE | 2023-02-15 11:15 | PM.NEUROCN ---
History of Present Illness Data of Consult Service Date: 02/15/23 Primary Care Provider: Unknown Physician HPI Reason for consult: Stroke 52-year-old male with a PMH significant for?HTN, HLD, lzt-wdenmfa-gnohikowo diabetes type 2, CHF unspecified, TRAM on CPAP, hx of PE from right leg DVT on warfarin, orthostatic hypotension, hx of CVA in 08/2022, anxiety, and depression who was originally admitted to [facility] unit for increasing depression. Yesterday he complain of feeling lightheaded with no other obvious focal abnormality. There was no problem with his speech. No headache was reported. No nausea or vomiting. He had a head CT done initially and then MRIs this morning. He is on warfarin but his INR has been subtherapeutic in recent days. Review of Systems Review of Systems: No chest pain palpitation cold or flu-like illness or seizure-like episode [facility] Social History Social History Household Members: None Housing: Apartment Do you presently have visiting nurse or other home services: No Patient Tobacco Use Status: Never used Tobacco e-Cigarette/Vaping Use: Never Used Use of substances other than those prescribed or required for medical reasons: No Currently Displaying Signs/Symptoms of Drug Intoxication Withdrawal: No Have you been hit, kicked, punched, or otherwise hurt by someone within the past year? If so, by whom?: No Do you feel safe in your current relationship?: No Current Relationship Is there a partner from a previous relationship who is making you feel unsafe now?: No Are you made to feel afraid or neglected: No Advance Directives: No Advance Directives Information Provided: No Do you have thoughts of harming others: Frequent Do you have a plan to hurt others: Vague Recently lost weight without trying: No Eating poorly because of decreased appetite: No Nutrition Risks: No Nutritional Risk Poor oral hygiene: No service: No Sexual orientation: Straight/Heterosexual Meds Allergies Allergy/AdvReac Type Severity Reaction Status Date / Time dapagliflozin Allergy Unknown Verified 02/09/23 17:54 vancomycin Allergy Unknown Verified 02/08/23 03:44 Active Medications: Current Medications Acetaminophen (Acetaminophen 325 Mg Tablet) 650 mg PO Q6H PRN PRN Reason: Pain, Mild (Pain Scale 1-3) Amlodipine Besylate (Amlodipine Besylate 5 Mg Tablet) 5 mg PO DAILY [facility]; Protocol Last Admin: 02/15/23 08:33 Dose: 5 mg Benzonatate (Benzonatate 100 Mg Capsule) 100 mg PO TID PRN PRN Reason: Cough Carvedilol (Carvedilol 12.5 Mg Tablet) 12.5 mg PO BID [facility]; Protocol Last Admin: 02/15/23 08:33 Dose: 12.5 mg Dextrose (Dextrose 50 % 25 Gm/50 Ml Syringe) 25 gm IVPUSH Q15M PRN; Protocol PRN Reason: per Hypoglycemia Standing Ord. Docusate Sodium (Docusate Sodium 100 Mg Capsule) 100 mg PO DAILY PRN PRN Reason: Constipation Glucose (Glucose Gel 15 Gm Gel..Gram.) 15 gm PO Q15M PRN; Protocol PRN Reason: per Hypoglycemia Standing Ord. Hydroxyzine HCl (Hydroxyzine Hcl 25 Mg Tablet) 25 mg PO Q6H PRN PRN Reason: anxiety/restlessness Insulin Human Lispro (Insulin Lispro 100 Unit/Ml 3 Ml Vial) 0 unit SUBCUT QIDACHS [facility]; Protocol Last Admin: 02/15/23 08:29 Dose: Not Given Melatonin (Melatonin 3 Mg Tablet) 6 mg PO BEDTIME PRN PRN Reason: Insomnia Ondansetron HCl (Ondansetron Hcl 4 Mg/2 Ml Vial) 4 mg IVPUSH Q8H PRN PRN Reason: Nausea and Vomiting Sacubitril/Valsartan (Sacubitril/Valsartan 49/51 1 Tab Tablet) 1 tab PO BID [facility]; Protocol Last Admin: 02/15/23 08:33 Dose: 1 tab Sodium Chloride (0.9 % Sodium Chloride Flush 3 Ml Syringe) 3 [facility] Last Admin: 02/15/23 08:34 Dose: 3 ml Warfarin Sodium (Warfarin Sodium 7.5 Mg Tablet) 15 mg PO DAILY@1800 [facility] Physical Exam Vital Signs: Vital Signs: Last Vital Signs Temp 97.8 F 02/15/23 07:24 Pulse 60 02/15/23 07:57 Resp 18 02/15/23 04:22 BP 169/93 H 02/15/23 07:24 Pulse Ox 99 02/15/23 07:57 O2 Del Method Room Air 02/15/23 07:24 Neuro: Other: Alert awake with normal spontaneity of speech fluency comprehension and affect. Face is symmetrical. Visual evans are full. Ynqvur-oj-tejs testing is normal. Deep tendon reflexes are 1+ with flexor plantars. Speech is normal. Results Labs 02/15/23 06:09 02/15/23 06:09 Labs: Short CBC 02/15/23 Range/Units 06:09 WBC 9.4 (4.8-10.8) X10*3/uL Hgb 13.9 L (14.0-18.0) g/dl Hct 42.0 (42.0-52.0) % Plt Count 209 (160-400) X10*3/uL BMP 02/15/23 06:09 Sodium 142 Potassium 3.5 Chloride 110 H Carbon Dioxide 25 BUN 23 H Creatinine 0.79 Calcium 8.9 MRI of brain revealed a small left cerebellar embolic looking subacute ischemic infarction. There was also evidence of extensive chronic ischemic disease in both hemispheres. Axial sections did not reveal any obvious vascular lesion in posterior anterior circulation. 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 This type of stroke may cause dizziness and lightheadedness but patient usually recovers completely. Main issue is blood pressure control in continuing anticoagulation. If maintaining proper INR is a problem, a should be switched to an alternate anti coagulant. This amount of vascular pathology also result in cognitive difficulties and difficulty with walking and balance. Blood pressure control, statin, if indicated, an anti-platelet agent like 1/2 of baby aspirin daily is recommended. It can also be 1 baby aspirin 2 to 3 times a week. Target LDL is 70 or less. Of note he was never a candidate for intravenous tPA because of anticoagulation on board and relatively mild symptoms. Procedures Date of Service Date of Service: 02/15/23
[2023-02-15 11:41] LABS: Glucose, Whole Blood 159 mg/dL (60-115)
[2023-02-15] MEDS: Insulin Lispro 100 UNIT/ML 3 ML VIAL SUBCUT (11:47)
[2023-02-15 12:00] VITALS: BP 169/101; PULSE 71; RESP 19; TEMP 36.6; O2SAT 97
--- NOTE | 2023-02-15 15:49 | PM.EVENT ---
Event Note Date of Service: 02/15/23 Time Spent With Patient Time: Total time managing care of this patient today _30___ minutes.
[2023-02-15 15:51] VITALS: BP 156/98; PULSE 66; RESP 16; TEMP 36.9; O2SAT 99
[2023-02-15 16:11] LABS: Glucose, Whole Blood 107 mg/dL (60-115)
--- NOTE | 2023-02-15 16:21 | P.CNPS_ITS ---
History of Present Illness Date of Service: 02/15/2023 Chief Complaint: Possible stroke Requesting physician: Alverto Wyatt Discussed with referring provider: Yes Sources of Information: patient interviewed, chart reviewed and crisis/core team assessment reviewed HPI Narrative: Mr. Bear is a 52 year-old male with hx of MDD, initially admitted to psych due to increased depression, SI with plan to OD. Pt transferred last night to [facility] due to CVA. Pt seen on the floor. Pt reports he continues to feel depressed and reports suicidal ideation. he denies any plan or intent to harm himself here in the hospital. He reports feeling very tired and desire to rest. Past Psychiatric History: Inpatient: none OP: none Past trials: lexapro, cymbalta Hx of suicide attempts: none Diagnostics Vital Signs (24Hr): Vital Signs - 24 hr 02/15/23 04:22 02/15/23 07:24 02/15/23 07:57 Temperature 98.0 F 97.8 F Pulse Rate 68 60 60 Respiratory Rate 18 Blood Pressure 168/76 H 169/93 H Pulse Oximetry 96 99 99 Oxygen Delivery Method Room Air Room Air 02/15/23 12:00 02/15/23 15:51 Temperature 97.8 F 98.4 F Pulse Rate 71 66 Respiratory Rate 19 16 Blood Pressure 169/101 H 156/98 H Pulse Oximetry 97 99 Oxygen Delivery Method Room Air Room Air Labs 02/15/23 06:09 02/15/23 06:09 Labs: Laboratory Results - last 48 hr 02/15/23 02/15/23 02/15/23 06:09 07:20 08:22 WBC 9.4 RBC 5.23 Hgb 13.9 L Hct 42.0 MCV 80.3 MCH 26.6 L MCHC 33.1 RDW 14.6 Plt Count 209 MPV 11.8 Absolute Nucleated RBC 0.000 Nucleated RBC % (auto) 0.0 PT 27.2 H INR 2.2 H Sodium 142 Potassium 3.5 Chloride 110 H Carbon Dioxide 25 Anion Gap 11 L BUN 23 H Creatinine 0.79 Estim Creat Clear Calc TNP Estimated GFR > 60 POC Glucose 114 132 H Random Glucose 129 H Calcium 8.9 02/15/23 02/15/23 11:36 16:08 WBC RBC Hgb Hct MCV MCH MCHC RDW Plt Count MPV Absolute Nucleated RBC Nucleated RBC % (auto) PT INR Sodium Potassium Chloride Carbon Dioxide Anion Gap BUN Creatinine Estim Creat Clear Calc Estimated GFR POC Glucose 159 H 107 Random Glucose Calcium Imaging Radiology Impressions: ITS Impressions Brain MRI 02/15/23 10:30 IMPRESSION: An approximate 1.1 cm focus of soft tissue abnormality in the inferior left occipital lobe with mild surrounding vasogenic edema is suspected to represent a small late subacute parenchymal hematoma. Extensive chronic white matter microangiopathy with scattered chronic microhemorrhages. Imaging findings may signify underlying chronic hypertensive encephalopathy; clinically correlate. Amyloid angiopathy is typically seen in older patients with a pattern of peripheral predominance of chronic microhemorrhages. Signal changes also seen within the bitemporal periventricular white matter and corpus callosum that may also be due to chronic microangiopathy. The possibility of coinciding underlying demyelinating disease cannot be ruled out and clinical correlation is recommended. Mental Status Exam Mental Status Exam Narrative: Appearance: wearing hospital gown, fair hygiene, in NAD Behavior: none Psychomotor: no agitation or retardation noted Speech: clear, normal rate/rhythm/volume, spontaneous TP: linear TC: feeling depressed, no motivation Mood: depressed Affect: somewhat irritable SI: reports SI HI: none Delusions: none VH/AH: none Insight/judgment: fair x 2. Memory/cog: alert, oriented x 3. no formal testing. Medications Medications Current Medications Acetaminophen (Acetaminophen 325 Mg Tablet) 650 mg PO Q6H PRN PRN Reason: Pain, Mild (Pain Scale 1-3) Amlodipine Besylate (Amlodipine Besylate 5 Mg Tablet) 5 mg PO DAILY [facility]; Protocol Last Admin: 02/15/23 08:33 Dose: 5 mg Benzonatate (Benzonatate 100 Mg Capsule) 100 mg PO TID PRN PRN Reason: Cough Carvedilol (Carvedilol 12.5 Mg Tablet) 12.5 mg PO BID [facility]; Protocol Last Admin: 02/15/23 08:33 Dose: 12.5 mg Dextrose (Dextrose 50 % 25 Gm/50 Ml Syringe) 25 gm IVPUSH Q15M PRN; Protocol PRN Reason: per Hypoglycemia Standing Ord. Docusate Sodium (Docusate Sodium 100 Mg Capsule) 100 mg PO DAILY PRN PRN Reason: Constipation Glucose (Glucose Gel 15 Gm Gel..Gram.) 15 gm PO Q15M PRN; Protocol PRN Reason: per Hypoglycemia Standing Ord. Hydroxyzine HCl (Hydroxyzine Hcl 25 Mg Tablet) 25 mg PO Q6H PRN PRN Reason: anxiety/restlessness Last Admin: 02/15/23 11:14 Dose: 25 mg Insulin Human Lispro (Insulin Lispro 100 Unit/Ml 3 Ml Vial) 0 unit SUBCUT QIDACHS [facility]; Protocol Last Admin: 02/15/23 11:47 Dose: 2 unit Melatonin (Melatonin 3 Mg Tablet) 6 mg PO BEDTIME PRN PRN Reason: Insomnia Ondansetron HCl (Ondansetron Hcl 4 Mg/2 Ml Vial) 4 mg IVPUSH Q8H PRN PRN Reason: Nausea and Vomiting Sacubitril/Valsartan (Sacubitril/Valsartan 49/51 1 Tab Tablet) 1 tab PO BID [facility]; Protocol Last Admin: 02/15/23 08:33 Dose: 1 tab Sodium Chloride (0.9 % Sodium Chloride Flush 3 Ml Syringe) 3 ml IVFLUSH QSHIFT [facility] Last Admin: 02/15/23 08:34 Dose: 3 ml Warfarin Sodium (Warfarin Sodium 7.5 Mg Tablet) 15 mg PO DAILY@1800 [facility] Allergies Allergies Allergy/AdvReac Type Severity Reaction Status Date / Time dapagliflozin Allergy Unknown Verified 02/09/23 17:54 vancomycin Allergy Unknown Verified 02/08/23 03:44 Assessment & Plan Assessment & Plan (1) MDD (major depressive disorder), recurrent episode, severe: Status: Acute Code(s): F33.2 - Major depressive disorder, recurrent severe without psychotic features Plan Mr. Bear is a 52 y/o male with hx of MDD, initially admitted to due to increase depression and SI. He was transferred last night due to CVA. Pt continues to endorse depressed mood. He continues to endorse SI, although denies any plan or intent to harm himself or others. PLAN 1. Recommend once medically clear to transfer patient back to psych unit to continue treatment for depression 2. He does not need sitter as he denies any plan or intent to harm himself here in the hospital and wants to continue treatment prior to going back home. 3. Continue current medications- effexor 75mg po daily. Total time managing care of this patient today ____ minutes.
--- NOTE | 2023-02-15 17:04 | P.PNIM_ITS ---
Subjective Subjective Date of Service: 02/15/23 Interval History: Symptoms essentially resolved. Patient has reservations about returning to home Review of Systems Denies chest pain Denies shortness of breath Denies nausea vomiting diarrhea Denies fever chills Physical Exam 2 Vital Signs: Vital Signs: Last Vital Signs Temp 98.4 F 02/15/23 15:51 Pulse 66 02/15/23 15:51 Resp 16 02/15/23 15:51 BP 156/98 H 02/15/23 15:51 Pulse Ox 99 02/15/23 15:51 O2 Del Method Room Air 02/15/23 15:51 Const: Other: Awake alert no acute distress Resp: Other: Clear to auscultation bilaterally no rales rhonchi or wheezes Cardio: Other: No S4; positive S1-S2; no S3 murmurs rubs or gallops GI: Other: Soft nontender nondistended normoactive bowel sounds Neuro: Other: Cranial nerves 2-12 grossly intact as tested. Motor is 5 of 5 all extremities. Sensation is intact. Cognition is appropriate Extrem: Other: No edema bilaterally Objective Data Active Medications Acetaminophen (Acetaminophen 325 Mg Tablet) 650 mg PO Q6H PRN PRN Reason: Pain, Mild (Pain Scale 1-3) Amlodipine Besylate (Amlodipine Besylate 5 Mg Tablet) 5 mg PO DAILY [facility]; Protocol Last Admin: 02/15/23 08:33 Dose: 5 mg Documented By: FLAQUITO Benzonatate (Benzonatate 100 Mg Capsule) 100 mg PO TID PRN PRN Reason: Cough Carvedilol (Carvedilol 12.5 Mg Tablet) 12.5 mg PO BID [facility]; Protocol Last Admin: 02/15/23 08:33 Dose: 12.5 mg Documented By: FLAQUITO Dextrose (Dextrose 50 % 25 Gm/50 Ml Syringe) 25 gm IVPUSH Q15M PRN; Protocol PRN Reason: per Hypoglycemia Standing Ord. Docusate Sodium (Docusate Sodium 100 Mg Capsule) 100 mg PO DAILY PRN PRN Reason: Constipation Glucose (Glucose Gel 15 Gm Gel..Gram.) 15 gm PO Q15M PRN; Protocol PRN Reason: per Hypoglycemia Standing Ord. Hydroxyzine HCl (Hydroxyzine Hcl 25 Mg Tablet) 25 mg PO Q6H PRN PRN Reason: anxiety/restlessness Last Admin: 02/15/23 11:14 Dose: 25 mg Documented By: FLAQUITO Insulin Human Lispro (Insulin Lispro 100 Unit/Ml 3 Ml Vial) 0 unit SUBCUT QIDACHS [facility]; Protocol Last Admin: 02/15/23 16:31 Dose: Not Given Documented By: FLAQUITO Non-Admin Reason: No Insulin Coverage Melatonin (Melatonin 3 Mg Tablet) 6 mg PO BEDTIME PRN PRN Reason: Insomnia Ondansetron HCl (Ondansetron Hcl 4 Mg/2 Ml Vial) 4 mg IVPUSH Q8H PRN PRN Reason: Nausea and Vomiting Sacubitril/Valsartan (Sacubitril/Valsartan 49/51 1 Tab Tablet) 1 tab PO BID [facility]; Protocol Last Admin: 02/15/23 08:33 Dose: 1 tab Documented By: FLAQUITO Sodium Chloride (0.9 % Sodium Chloride Flush 3 Ml Syringe) 3 ml IVFLUSH QSHIFT [facility] Last Admin: 02/15/23 08:34 Dose: 3 ml Documented By: FLAQUITO Warfarin Sodium (Warfarin Sodium 7.5 Mg Tablet) 15 mg PO DAILY@1800 [facility] Labs 02/15/23 06:09 02/15/23 06:09 Labs: Laboratory Results - last 24 hr 02/15/23 02/15/23 02/15/23 06:09 07:20 08:22 MCV 80.3 MCH 26.6 L MCHC 33.1 RDW 14.6 Plt Count 209 MPV 11.8 Absolute Nucleated RBC 0.000 Nucleated RBC % (auto) 0.0 PT 27.2 H INR 2.2 H Anion Gap 11 L Estim Creat Clear Calc TNP Estimated GFR > 60 POC Glucose 114 132 H Random Glucose 129 H Calcium 8.9 02/15/23 02/15/23 11:36 16:08 MCV MCH MCHC RDW Plt Count MPV Absolute Nucleated RBC Nucleated RBC % (auto) PT INR Anion Gap Estim Creat Clear Calc Estimated GFR POC Glucose 159 H 107 Random Glucose Calcium Assessment and Plan (1) Cerebellar infarction: Status: Acute (2) HTN (hypertension): Status: Acute Plan Pt is a 52-year-old male with a PMH significant for?HTN, HLD, gyq-brljopg-gbfbbulpa diabetes type 2, CHF unspecified, TRAM on CPAP, hx of PE from right leg DVT on warfarin, orthostatic hypotension, hx of CVA in 08/2022, anxiety, and depression who was originally admitted to [facility] for increasing depression with SI with plan of running into traffic and HI with thoughts of randomly beating up people in the parking lot. While on the psych unit earlier today pt began experiencing lightheadedness and dizziness with walking and just feeling ?off? and not like himself. Patient will be transferred from the Psychiatric Unit to the medical floor for further treatment and management of possible acute CVA. 1.CVA -MRI demonstrated a small left cerebellar embolic infarct -neurology recommends baby aspirin daily statin and blood pressure control -LDL below 70 without therapies -no barriers to discharge 2.HTN -control improved -continue current therapies -adjust as indicated 3.Hx of right leg DVT with PE -Coumadin as per outpatient dosing -daily INR; goal between 2.0-3.0 3.Ywm-jwlodgp-mjmcylthd diabetes type 2 -acceptable control off metformin -lispro correctional scale -adjust as indicated 4.HLD -Continue statin 5.Mood disorder; suicidal ideation -seen by Psychiatry; recommend return to unit -care consult in a.m. Full Code On warfarin Requires ongoing hospitalization pending safe discharge to Quality Stroke Does the patient have a stroke diagnosis?: Yes Reason for No Anti-thrombotic by Day Two: Contraindicated (Outside of tPA window, already on warfarin) VTE Prior VTE?: Yes VTE Risk Level:: Medical - moderate - high VTE Device Contraindication: Treatment Not Indicated VTE Drug Contraindication: N/A - Med Ordered
[2023-02-15] MEDS: Warfarin Sodium 7.5 MG TABLET 15 MG PO (17:14)
[2023-02-15 19:16] VITALS: BP 194/90; PULSE 69; RESP 18; TEMP 36.6; O2SAT 98
[2023-02-15 20:42] LABS: Glucose, Whole Blood 142 mg/dL (60-115)
[2023-02-16 07:19] VITALS: BP 156/110; PULSE 65; RESP 20; TEMP 36.6; O2SAT 97
[2023-02-16 07:27] LABS: Glucose, Whole Blood 127 mg/dL (60-115)
[2023-02-16] MEDS: carvediloL 12.5 MG TABLET PO (07:54)
[2023-02-16] MEDS: amLODIPine Besylate 5 MG TABLET PO (07:54)
[2023-02-16] MEDS: Sacubitril/Valsartan 49/51 1 TAB TABLET PO (07:54)
[2023-02-16] MEDS: 0.9 % Sodium Chloride Flush 3 ML SYRINGE IVFLUSH (07:55)
--- NOTE | 2023-02-16 07:58 | PC.NURSE ---
Pt. sitting at bedside, with 1:1 sitter, is calm and cooperative, reports continued SI/HI however is cooperative and prefers not to discuss further at this time. [id number]/110 am BP meds given per orders, reported to MD ROQUE. Will recheck x 30 minutes or so post meds.
[2023-02-16 08:13] LABS: INTERNATIONAL NORM RATIO 2.4 (0.9-1.1); Prothrombin Time 29.5 SEC (11.1-13.3)
[2023-02-16 08:34] VITALS: BP 133/81
--- NOTE | 2023-02-16 10:45 | MHC.CM.PN ---
PER HOSPITALIST JOSEPH PT WILL BE DISCHARGED TO INPT PSYCHIATRIC UNIT AT [facility] TODAY.
[2023-02-16 11:25] VITALS: BP 137/85; PULSE 76; RESP 20; TEMP 36.5; O2SAT 100
[2023-02-16 11:30] LABS: Glucose, Whole Blood 152 mg/dL (60-115)
[2023-02-16] MEDS: Insulin Lispro 100 UNIT/ML 3 ML VIAL SUBCUT (11:58)
--- NOTE | 2023-02-16 13:05 | PM.DS ---
DS: Providers Provider Date of Service: 02/16/23 Date of admission: 02/14/23 22:13 Date of discharge: 02/16/23 Primary care physician: Unknown Physician Consults: 02/14/23 22:12 Consult to Neurology Routine Consulting Provider: [facility] 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 While on the psych unit earlier today pt began experiencing lightheadedness and dizziness with walking and just feeling ?off? and not like himself. Reports feeling similar symptoms when he experienced a hemorrhagic stroke in August 2022 for which she was seen and evaluated at [facility]. Patient denies headache or acute vision changes. No dysarthria, confusion, hemiparesis, numbness or tingling in any extremities. Patient does complain of increased swelling in his ankles bilaterally despite wearing compression stockings for the past 3 days. Denies shortness of breath, orthopnea, cough. No chest pain/pressure, palpitations. Denies fever, chills, N/V, abdominal pain. Patient received CT of head with results that were ?abnormal?. Did not find any midline shift or mass effect or hemorrhage, but subtle areas of decreased attenuation in the white matter of the brain could represent areas of white matter infarction or white matter disease. Also found in the left occipital region some decreased attenuation with some loss of yin-white matter differentiation that could be an area of more acute or subacute infarct. Recommendation is for MRI for further evaluation. Patient will be transferred from the Psychiatric Unit to the medical floor for further treatment and management of possible acute CVA. Hospital Course Patient admitted to telemetry where his monitor failed to demonstrate any acute dysrhythmias. He was seen in consultation by Neurology; after neurology reviewed the MRI was felt the patient had a small late subacute parenchymal hematoma based on findings. Symptoms have totally resolved at the time of this dictation. Neurology recommended echocardiogram which was essentially unremarkable. The only med changes that were made was addition of aspirin 81 mg Saturday. At this point time he is medically acceptable for discharge and can follow-up on M 3 Time Attestation Discharge coordination time: Greater than 30 minutes Quality: Safe Use of Opioids Does Pt have an Active Cancer Diagnosis on the Problem List?: No Quality: Stroke Does the patient have a stroke diagnosis?: No Physical Exam Vital Signs: Vital Signs: Last Vital Signs Temp 97.7 F 02/16/23 11:25 Pulse 76 02/16/23 11:25 Resp 20 02/16/23 11:25 BP 137/85 02/16/23 11:25 Pulse Ox 100 02/16/23 11:25 O2 Del Method Room Air 02/16/23 11:25 Const: Other: Awake alert no acute distress Resp: Other: Clear to auscultation bilaterally no rales rhonchi or wheezes Cardio: Other: No S4; positive S1-S2; no S3 murmurs rubs or gallops GI: Other: Soft nontender nondistended normoactive bowel sounds Neuro: Other: Cranial nerves 2-12 grossly intact as tested. Motor is 5 of 5 all extremities. Sensation is intact. Cognition is appropriate Extrem: Other: No edema bilaterally DS: Data Data Completed and Pending Labs on day of discharge: Laboratory Results - last 24 hr 02/15/23 02/15/23 02/16/23 16:08 20:35 07:21 PT INR POC Glucose 107 142 H 127 H 02/16/23 02/16/23 07:31 11:24 PT 29.5 H INR 2.4 H POC Glucose 152 H Discharge Plan Discharge Anticipated Discharge Date/Time: 02/16/23 13:01 Patient Disposition: Xfer Other Discharge Diagnosis: CVA Referrals: Physician,Unknown J [Primary Care Provider] - 1 Week Discharge Medications: New aspirin 81 mg tablet,delayed release (DR/EC) See Rx Instructions .ROUTE .COMPLEX Qty: 12 0RF Rx Instructions: 81 mg orally Mvvjeu-Kpjvyrlfk-Rayoqd Continued atorvastatin 20 mg Tablet 20 mg PO BEDTIME Qty: 0 0RF carvedilol 12.5 mg Tablet 12.5 mg PO BID Qty: 0 0RF Protocol: Hold for SBP/HR < HOLD for SBP < : 90 HOLD for HR < : 60 warfarin [Jantoven] 10 mg Tablet 15 mg PO DAILY@1800 Qty: 0 0RF amlodipine 5 mg Tablet 5 mg PO DAILY Qty: 0 0RF Protocol: Hold for SBP< HOLD for SBP < : 90 Entresto 49-51 mg Tablet 1 tab PO BID Qty: 0 0RF Protocol: Hold for SBP< HOLD for SBP < : 90 venlafaxine 75 mg Capsule,Extended Release 24hr 75 mg PO DAILY Qty: 0 0RF metformin 1,000 mg Tablet 1,000 mg PO DAILY Qty: 0 0RF topiramate 100 mg Tablet 100 mg PO BID Qty: 0 0RF Discharge Orders: Discharge Order (Routine); Ordered 02/16/23 Ordered By: Alverto Wyatt Diet: Advance to usual diet Activity on Discharge: As tolerated Stand Alone Forms: Patient Portal Discharge page Care Plan Goals: Add aspirin 81 mg on Saturday and Saturday to your medical regimen Health Concerns: Continue all other therapies Plan of Treatment: As per receiving unit Assessment: See discharge summary
--- NOTE | 2023-02-18 09:44 | MHC.STROKE ---
LATE ENTRY FOR 02/14/2023 1900 (DISCOVERY OF STROKE SYMPTOMS): PATIENT ON INPATIENT PSYCH UNIT, ELEVATED BP AND CT HEAD OBTAINED, HOSPITALIST TEAM NOTIFIED. ONSET OF STROKE SYMPTOMS ? 3-DAYS BUT ULTIMATELY UNKNOWN. TRANSFERRED TO MED/TELE UNIT. OUT OF THE WINDOW FOR THROMBOLYTICS AND ON WARFARIN INR 2.2, THEREFORE EXCLUDED FRO TPA WELL. CONFIRMED THAT HE PASSED THE INITIAL SWALLOW SCREEN AT 02/15/23 AT 0057. STROKE EDUCATION INITIATED. SEEN BY NEUROLOGY SUB-ACUTE EMBOLIC ISCHEMIC STROKE, AND TRANSFERRED BACK TO PSYCH UNIT. LIPID PANEL DONE AFTER TRANSFER. ALL STROKE MEASURES MET.
--- NOTE | 2023-03-08 10:34 | MHC.STROKE ---
03/08/23 1030 LATE ENTRY FOR 02/16/23 REGARDING DISCHARGE MEDICATION ATORVASTATIN: I CONFIRMED WITH DISCHARGING PROVIDER DR. ROQUE THAT THE REASON FOR NO INTENSIVE STATIN THERAPY WAS BECAUSE NO EVIDENCE OF ATHEROSCLEROSIS AND PATIENT DID NOT WANT TO START ON A HIGHER DOSE AT THIS TIME.
== END 2023-02-16 13:57 | disposition other institution (70) | DRG 45 ==
PROVIDERS: Admitting Provider Student in an Organized Health Care Education/Training Program; PCP Hospitalist; Visit Provider Hospitalist
DX: I63.442 Cerebral infarction due to embolism of left cerebellar artery (principal); R45.851 Suicidal ideations; I50.9 Heart failure, unspecified; F33.2 Major depressive disorder, recurrent severe without psychotic features; I11.0 Hypertensive heart disease with heart failure; E78.5 Hyperlipidemia, unspecified; I95.1 Orthostatic hypotension; G47.33 Obstructive sleep apnea (adult) (pediatric); R79.1 Abnormal coagulation profile; Z86.711 Personal history of pulmonary embolism; Z86.718 Personal history of other venous thrombosis and embolism; Z79.01 Long term (current) use of anticoagulants; Z79.84 Long term (current) use of oral hypoglycemic drugs; Z79.899 Other long term (current) drug therapy
CPT/HCPCS: 36415; 70551; 80048; 82947; 85027; 85610; 93306; 97162; 97165; Q9957; S9485

== ENCOUNTER 2023-02-14 22:13 | Outpatient (BNV) | payer OTHER, SELFPAY | END 2023-02-15 07:00 | PROVIDERS: Admitting Provider Student in an Organized Health Care Education/Training Program; Visit Provider Internal Medicine Cardiovascular Disease | DX: I63.9 Cerebral infarction, unspecified (principal) | CPT/HCPCS: 93306 ==

== ENCOUNTER → 2023-02-14 22:13 | Outpatient (BNV) | payer OTHER, SELFPAY | PROVIDERS: Admitting Provider Student in an Organized Health Care Education/Training Program; Visit Provider Social Worker | DX: F33.2 Major depressive disorder, recurrent severe without psychotic features (principal) | CPT/HCPCS: 99232 ==

== ENCOUNTER 2023-02-16 13:06 | Inpatient (IN) | payer OTHER, SELFPAY ==
--- OUTSIDE RECORDS SUMMARY | 2023-02-16 14:12 | XMS_ITS | Patient Health Record ---
Author Name Unknown Organization [facility] Address [address] [place] [address] Care Team Providers Care Nurse Chemical Dependency Name Role Phone TORRI MOCK Primary Care Provider Gladys Blanco Unavailable [phone] ALLERGIES Allergen (clinical drug ingredient) Drug/Non Drug Allergy documented on EMR Reaction Allergy Type Onset Date Status vancomycin Vancomycin HCl Unknown Drug Allergy A ctive dapagliflozin Farxiga increased urination/blurry vision Drug Allergy Active RESULTS Component Value Reference Range Notes ToxASSURE (R) Select 13 (Pre scription Drug Monitoring Screen) Reviewed date:05/09/2022 12:27:57 PM Interpretation: Performing Lab:Testing performed or reported by [facility], a Service of [facility], [address] [place] [address] [place] [address] Berhane Meredith MD, Collet Gluer [facility]# [id number] Notes/Report: ToxASSURE(R) Select FINAL (NOTE) TOXASSURE SELECT [...] Interpretation: Performing Lab:Testing performed or reported by [facility], a Service of [facility], [address] [place] [address] Shaniqua Espitia MD, Collet Gluer [facility]# [id number] Notes/Report: GLUCOSE 131 (70-99) MG/DL BUN 28 [...] Interpretation: Performing Lab:Testing performed or reported by [facility], a Service of [facility], [address] [place] [address] Shaniqua Espitia MD, Collet Gluer [facility]# [id number] Notes/Report: HEMOGLOBIN A1C 5.6 (4.0-5.6) % MONITORING: In known diabetic patients, hemoglobin A1c targets should be discussed with health care provider. DIAGNOSTIC USE: The [place] Diabetes Association (ADA) and the World Health [...] Interpretation: Performing Lab:Testing performed or reported by [facility], a Service of [facility], [address] [place] [address] Berhane Meredith MD, Collet Gluer [facility]# [id number] Notes/Report: CALPROTECTIN,FECAL 47 Reference range: 0 to 120 Unit: ug/g (NOTE) Concentration Interpretation Follow-Up <16 - 50 ug/g Normal None >50 -120 ug/g Borderline Re-evaluate in 4-6 weeks >120 ug/g Abnormal Repeat as clinically indicated Test performed at [address] [address] LACTOFERRIN, STOOL Reviewed date:07/25/2022 04:22:19 PM Interpretation: Performing Lab:Testing performed or reported by [facility], a Service of [facility], [facility] [place] [address] Berhane Meredith MD, Collet Gluer [facility]# [id number] Notes/Report: LACTOFERRIN, FECAL <1.00 Reference range: 0.00 [...] irritable bowel syndrome (IBS). Test performed at [address] [address] C. DIFFICILE TOXIN Reviewed date:07/17/2022 11:58:53 AM Interpretation: Performing Lab:Testing performed or reported by [facility], a Service of [facility], [facility] [place] [address] Berhane Meredith MD, Collet Gluer [facility]# [id number] Notes/Report: C. DIFFICILE TOXIN Negative. C.Difficile bacterial antigen and toxin not detected. A (NGCDF7) negative test result does not rule out the possibility of C.Difficile associated disease. If clinical suspicion is high, consider resubmission after 7 days. MICROALBUMIN, URINE Reviewed date:01/28/2023 01:08:42 PM Interpretation: Performing Lab:Testing performed or reported by [facility], a Service of [facility], [address] [place] [address] Berhane Meredith MD, Collet Gluer [facility]# [id number] Notes/Report: MICRO-ALBUMIN 413.0 (<20) MG/L The urine microalbumin test is designed to monitor renal function. When screening for Bence Levin proteinuria, urine electrophoresis is recommended. MALB/CREAT RATIO 319.1 (0-20) MG/GM URINE CREAT FOR MICRO ALBUMIN 129.4 LIPID PANEL Reviewed date:01/29/2023 01:13:47 PM Interpretation: Performing Lab:Testing performed or reported by [facility], a Service of [address] [place] [address] Berhane Meredith MD, Collet Gluer [facility]# [id number] Notes/Report: CHOLESTEROL, TOTAL 165 (<200) MG/DL TRIGLYCERIDE 234 (<150) MG/DL HDL CHOL 33 (>39) MG/DL LDL CHOLESTEROL, CALCULATED 85 (0-130) MG/DL NON HDL CHOLESTEROL (CALC) 132 (<160) MG/DL COMPREHENSIVE METABOLIC PANE L Reviewed date:01/29/2023 01:14:04 PM Interpretation: Performing Lab:Testing performed or reported by [facility], a Service of [address] [address] Berhane Meredith MD, Collet Gluer [facility]# [id number] Notes/Report: GLUCOSE 138 (70-99) MG/DL BUN 21 [...] Interpretation: Performing Lab:Testing performed or reported by [facility], a Service of [address] [address] Berhane Meredith MD, Collet Gluer [facility]# [id number] Notes/Report: HEMOGLOBIN A1C 6.0 (4.0-5.6) % MONITORING: In known diabetic patients, hemoglobin A1c targets should be discussed with health care provider. DIAGNOSTIC USE: The [place] Diabetes Association (ADA) and the World Health [...] Interpretation: Performing Lab:Testing performed or reported by [facility], a Service of [facility], [address] [place] [address] Berhane Meredith MD, Collet Gluer [facility]# [id number] Notes/Report: PSA 3.1 (0-4) NG/ML TEST PERFORMED USING THE JESSICA ELECTROCHEMILLUMINESCENCE TOTAL PSA ASSAY. PSA VALUES OBTAINED WITH OTHER ASSAY METHODS OR KITS CANNOT BE USED INTERCHANGEABLY. CAMPYLOBACTER RESULTS Reviewed date:07/20/2022 10:51:18 AM Interpretation: Performing Lab:Testing performed or reported by [facility], a Service of [facility], [facility] [place] [address] Berhane Meredith MD, Collet Gluer [facility]# [id number] Notes/Report: CULTURE RESULT 1 Comment (NOTE) No Campylobacter species isolated. Test performed by [facility], [address] [facility] [place] [address] SALMONELLA/SHIGELLA RESULTS Reviewed date:07/20/2022 10:51:12 AM Interpretation: Performing Lab:Testing performed or reported by [facility], a Service of [facility], [facility] [place] [address] Berhane Meredith MD, Collet Gluer CLIA# [id number] Notes/Report: SCREEN RESULT 1 Comment (NOTE) No Salmonella or Shigella recovered. Test performed by [facility], [address] [facility] [place] [address] ROUTINE CULTURE, STOOL Reviewed date:07/20/2022 10:51:09 AM Interpretation: Performing Lab:Testing performed or reported by [facility], a Service of [facility], [address] [place] [address] Berhane Meredith MD, Collet Gluer [facility]# [id number] Notes/Report: STOOL CULTURE SOURCE STOOL SALMONELLA/SHIGELLA SCREEN Final report CAMPYLOBACTER CULTURE Final report E COLI SHIGA TOXIN EIA NEGATIVE Reference range: NEGATIVE Test performed by [facility], [address] [place] [address] REASON FOR REFERRAL Reason Pulmonary embolism Diagnosis 1 Other pulmonary embo lism without acute cor pulmonale (I26.99) Referral Organization [facility] Referring Provider First Name [facility] Referring Provider Last Name GU Referring Provider Speciality Internal M edicine Referred Provider Specialty Hematology General Notes Referral request jonathan uld be sent through fax first before setting up an appt. Sent referral to [facility] in [address] [place] [address] , phone # [phone] w/ fax# [phone]. Office will call pt for appt., Niko Hernandez 03/22/2022 03:03:09 AM > Clinical Notes called [facility] advised no schedule yet for pt. was transferred to New Patient Coordinator lvm will refax referral. Refaxed: 06/13/2022., Niko Hernandez 06/13/2022 10:34:15 PM >, [facility] called in requested to refax, unable to read notes, blurry. Pls fax it manually to fax# [phone]., Niko Hernandez 06/14/2022 02:54:25 AM >, faxed.Pilar Heather 06/13/2022 02:47:06 PM >, Received a fax from [facility] pt. is schedule on 07/12/2022 1:30pm with Dr. Staples., Niko Hernandez 06/16/2022 05:23:28 AM > Referral Priority Routine Reason Uncontrolled Hyperte nsion Diagnosis 1 Essential (primary) hypertension (I10) Referral Organization [facility] Referring Provider First Name WILD Referring Provider Last Name [facility] Referring Provider Speciality Internal M edicine Referred Provider Specialty Nephrology General Notes Referral request jonathan uld be sent through fax first before setting up an appt. Sent referral to [facility] , phone # [phone] w/ fax# [phone]. Office will call pt for appt., Niko Hernandez 04/20/2022 12:24:40 AM > Clinical Notes called [facility] advised pt. is scheduled 07/18/2022 1:30pm, Niko Hernandez 07/12/2022 01:29:10 AM > Referral Priority Routine Reason fainting, chest pain needs clearance for work Diagnosis 1 Other pulmonary embo lism without acute cor pulmonale (I26.99) Diagnosis 2 Chronic systolic (co ngestive) heart failure (I50.22) Referral Organization [facility] Referring Provider First Name TORRI Referring Provider Last Name [facility] Referring Provider Speciality Internal edicine Referred Provider Specialty Cardiology General Notes faxed to [phone] as that is where pt has gone., Arabella Mcghee 03/19/2022 04:06:00 PM >, Called [facility] #[phone]. Unable to schedule appt. until pt. is seen for his initial appt. on 03/28 1:30pm., Niko Hernandez 03/22/2022 03:24:37 AM > Clinical Notes Called [facility] pt. have an scheduled Echocardiogram on 05/30/2022 1:00pm Referral Priority Routine Reason Syncope. Diabetic ne uropathy Diagnosis 1 Diabetes mellitus du e to underlying condition with diabetic neuropathy, unspecified (E08.40) Diagnosis 2 Syncope and collapse (R55) Referral Organization [facility] Referring Provider First Name TORRI Referring Provider Last Name [facility] Referring Provider Speciality Internal edicine Referred Provider Specialty Neurology General Notes patient asking about this ref, Mavis Nuno 03/21/2022 10:27:52 AM >, Referral request should be sent through fax first before setting up an appt. Sent referral to [facility] [place] [address], [address] [place] [address] phone # [phone] w/ fax# [phone]., Niko Hernandez 03/22/2022 03:34:00 AM > Clinical Notes faxed to [facility] as pt already sees the doctor there., Arabella Mcghee 03/26/2022 04:22:15 PM >, called [facility] Neuro - [phone] advised to refax referral to fax# [phone]. Patient was admitted on [facility] from . Have a virtual visit appt on 04/10 for Stroke. Refaxed: 04/05/2023., Niko Hernandez 04/06/2022 04:28:32 AM > Referral Priority Urgent Reason history of CVA Wel don Diagnosis 1 Personal history of transient ischemic attack (TIA), and cerebral infarction without residual deficits (Z86.73) Referral Organization [facility] Referring Provider First Name TORRI Referring Provider Last Name [facility] Referring Provider Speciality Internal edicine Referred Provider [facility] Referred Provider Specialty Physical The rapist General Notes F[place] [facility] [place] 11/08/2022 11:59:35 AM > Clinical Notes called Ely Baer in [place] was advised referral was received, they will be reaching out to the pt. Will follow-up., Niko Hernandez 11/23/2022 03:40:03 PM > Referral Priority Routine Reason intracerebral hemorr shan Diagnosis 1 Nontraumatic intrace rebral hemorrhage, unspecified (I61.9) Referral Organization [facility] Referring Provider First Name TORRI Referring Provider Last Name [facility] Referring Provider Speciality Internal edicine Ref[facility] Provider Specialty Neurology General Notes Referral faxed to [facility] Heather 10/10/2022 04:29:52 PM >, pt already a pt at [facility] Neuro. He will call himself to make appt, Arabella Mcghee 10/22/2022 01:26:00 PM > Referral Priority Routine Reason Right HERNANDEZ Diagnosis 1 Retinal artery branc h occlusion, right eye (H34.231) Referral Organization [facility] Referring Provider First Name TORRI Referring Provider Last Name [facility] Referring Provider Speciality Internal edicine Referred Provider Specialty Ophthalmolog y General Notes Faxed to [facility] e careRamyonFatemeh 10/11/2022 09:35:05 AM > Clinical Notes called [facility] they schedule pt. 11/15/2022 10am. Patient is aware., Niko Hernandez 11/09/2022 03:16:31 PM > Referral Priority Routine Reason ambulatory BP monito r Dr. Kat Diagnosis 1 Encounter for examin ation of blood pressure without abnormal findings (Z01.30) Diagnosis 2 Essential (primary) hypertension (I10) Referral Organization [facility] Referring Provider First Name TORRI Referring Provider Last Name [facility] Referring Provider [facility] Referred Provider [facility] Referred Provider Specialty Nephrology General Notes Faxed to Ritesh hernandes T Pilar sims Heather 10/10/2022 03:26:21 PM > Clinical Notes called [facility] phone# [phone] pt. canceled his appt. on 10/31/2022., Niko Hernandez 11/12/2022 09:06:46 AM > Referral Priority Routine Reason Bilateral Lower Extr emity Neuropathy Diagnosis 1 Unspecified mononeur opathy of bilateral lower limbs (G57.93) Referral Organization [facility] Referring Provider First Name TORRI Referring Provider Last Name [facility] Referring Provider Speciality [facility] Referred Provider Specialty Physical The rapist General Notes Referral request jonathan armenta be sent through fax first before setting up an appt. Sent referral to Ely Baer [facility] [address] [place], [place] phone# [phone] w/ fax# [phone]. Office will call pt for appt., Niko Hernandez 07/06/2022 10:43:08 PM > Referral Priority Routine MEDICATIONS Medication [...] Tinea pedis (B35.3) Active confirmed Tinea pedis (2766341) Problem Vitamin B12 deficiency anemia due to intrinsic factor deficiency (D51.0) Active confirmed Pernicious anem ia (65653572) Problem Diabetes mellitus due to underlying condition with diabetic neuropathy, unspecified (E08.40) Active confirmed Diabetic neuropathy (405767662) Problem Type 2 diabetes mellitus with unspecified complications (E11.8) Active confirmed Disorder due to type 2 diabetes mellitus (656572721) Problem Morbid (severe) obesity due to excess calories (E66.01) Active confirmed Morbid obesity (disorder) (782672941) Problem Major depressive disorder, recurrent, mild (F33.0) Active confirmed Mild recurrent major depression (86409915) Problem Anxiety disorder, unspecified (F41.9) Active confirmed Anxiety disorde r (898647108) Problem Male erectile disorder (F52.21) Active confirmed Male erect ile disorder (864693409) Problem 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) Active confirmed Transient ischemic attack (530254736) Problem Insomnia, unspecified (G47.00) Active confirmed Insomnia (715222090) Problem Obstructive sleep apnea (adult) (pediatric) (G47.33) Active confirmed Obstructive sle ep apnea syndrome (disorder) (93158262) Problem Hereditary and idiopathic neuropathy, unspecified (G60.9) Active confirmed Hereditary disorder of nervous system (393237452) Problem Polyneuropathy, unspecified (G62.9) Active confirmed Polyneuropathy (03177815) Problem Retinal artery branch occlusion, right eye (H34.231) Active confirmed Arterial retina l branch occlusion (43437164) Problem Essential (primary) hypertension (I10) Active confirmed Essential hypertension (59823607) Problem Other pulmonary embolism without acute cor pulmonale (I26.99) Active confirmed Pulmonary Embolism (00035261) Problem Chronic systolic (congestive) heart failure (I50.22) Active confirmed Chronic systoli c heart failure (913806423) Problem Nontraumatic intracerebral hemorrhage, unspecified (I61.9) Active confirmed Nontraumatic intracerebral hemorrhage (105420056354439) Problem Cerebral infarction, unspecified (I63.9) Active confirmed Cerebral infarction (877691287) Problem Edema, unspecified (R60.9) Active confirmed Edema (34830215) Problem Solitary pulmonary nodule (R91.1) Active confirmed Solitary pulmonary nodule (135345105) Problem Personal history of pulmonary embolism (Z86.711) Active confirmed History of pulmonary embolus (231908773) Problem Hyperlipidemia, unspecified (E78.5) Active confirmed Hyperlipidemia (58712942) Problem Unspecified mononeuropathy of bilateral lower limbs (G57.93) Active confirmed Mononeuropath y of lower limb (004707017) VITAL SIGNS Heart Rate 92 /min 01/24/2023 Temperature 98.2 degrees Fahrenheit 01/24/2023 Oximetry 97 % 01/24/2023 Blood pressure diastolic 90 mm Hg 01/24/2023 Height 66.61 in 01/24/2023 Blood pressure systolic 138 mm Hg 01/24/2023 Weight 210 lbs 01/24/2023 BMI 33.27 kg/m2 01/24/2023 Encounters Encounter Location Date Provider Diagnosis [facility] [address] [place] [address] 02/21/2022 [facility] [address] [place] [address] 04/18/2022 [facility] [address] [place] [address] 05/10/2022 [facility] [address] [place] [address] 05/16/2022 [facility] [address] [place] [address] 06/07/2022 [facility] [address] [place] [address] 08/28/2022 [facility] [address] [place] [address] 02/05/2023 [facility] [address] [place] [address] 02/07/2023 [facility] [address] [place] [address] 02/11/2023 [facility] [address] [place] [address] 03/07/2022 [facility] Essential (primary) hypertension I10 ; Anxiety disorder, unspecified F41.9 ; Other pulmonary embolism without acute cor pulmonale I26.99 ; Hyperlipidemia, unspecified E78.5 ; Chronic systolic (congestive) heart failure I50.22 ; 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 ; Morbid (severe) obesity due to excess calories E66.01 and Dietary counseling and surveillance Z71.[address] [address] 03/21/2022 Gladyshay Blanco Essential (primary) hypertension I10 ; Anxiety disorder, unspecified F41.9 ; Other pulmonary embolism without acute cor pulmonale I26.99 ; Hyperlipidemia, unspecified E78.5 ; Chronic systolic (congestive) heart failure I50.22 ; 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 ; Morbid (severe) obesity due to excess calories E66.01 and Dietary counseling and surveillance Z71.[address] [address] 04/27/2022 WILD GUL Diabetes mellitus du e to underlying condition with diabetic neuropathy, unspecified E08.40 ; Essential (primary) hypertension I10 ; Anxiety disorder, unspecified F41.9 ; Hyperlipidemia, unspecified E78.5 and Other pulmonary embolism without acute cor pulmonale I26.[address] [address] 05/04/2022 WILD GUL Essential (primary) hypertension I10 ; Other pulmonary embolism without acute cor pulmonale I26.99 ; Dental caries, unspecified K02.9 and Anxiety disorder, unspecified F41.[address] [address] 05/23/2022 WILD GUL Diabetes mellitus du e to underlying condition with diabetic neuropathy, unspecified E08.40 ; Essential (primary) hypertension I10 ; Hyperlipidemia, unspecified E78.5 and Anxiety disorder, unspecified F41.[address] [address] 06/04/2022 WILD GUL Diabetes mellitus du e to underlying condition with diabetic neuropathy, unspecified E08.40 ; Essential (primary) hypertension I10 ; Anxiety disorder, unspecified F41.9 and Other pulmonary embolism without acute cor pulmonale I26.[address] [address] 07/11/2022 WILD GUL Polyneuropathy, unspecified G62.9 ; Anxiety disorder, unspecified F41.9 ; Other pulmonary embolism without acute cor pulmonale I26.99 and Diarrhea, unspecified R19.[address] [address] 08/08/2022 WILD GUL Essential (primary) hypertension I10 ; Anxiety disorder, unspecified F41.9 ; Hyperlipidemia, unspecified E78.5 and Diabetes mellitus due to underlying condition with diabetic neuropathy, unspecified E08.[address] [address] 10/10/2022 WILD GUL Nontraumatic intracerebral hemorrhage, unspecified I61.9 ; Essential (primary) hypertension I10 ; Type 2 diabetes mellitus with unspecified complications E11.8 ; Chronic systolic (congestive) heart failure I50.22 and Orthostatic hypotension I95.[address] [address] 11/07/2022 WILD GUL Essential (primary) hypertension I10 ; Cerebral infarction, unspecified I63.9 ; Hyperlipidemia, unspecified E78.5 ; Chronic systolic (congestive) heart failure I50.22 ; Anxiety disorder, unspecified F41.9 and Insomnia, unspecified G47.[address] [address] 12/27/2022 WILD GUL Essential (primary) hypertension I10 ; Diabetes mellitus due to underlying condition with diabetic neuropathy, unspecified E08.40 ; Hyperlipidemia, unspecified E78.5 ; Chronic systolic (congestive) heart failure I50.22 ; Anxiety disorder, unspecified F41.9 and Polyneuropathy, unspecified G62.[address] [address] 01/24/2023 WILD GU Diabetes mellitus du e [...] prostate Z12.5 and Encounter for immunization Z23 [facility] [address] [place] [address] 02/26/2022 [facility] [address] [place] [address] 02/27/[address] [address] 03/01/[address] [address] 03/02/[address] [address] 03/13/[address] [address] 03/13/[address] [address] 03/14/[address] [address] 03/16/[address] [address] 03/20/[address] [address] 03/20/[address] [address] 03/27/[address] [address] 03/28/[address] [address] 03/30/2022 WILD GU Anxiety disorder, unspecified F41.9 [facility] [address] [place] [address] 04/03/2022 [facility] [address] [place] [address] 04/10/2022 WILD [facility] Personal history of pulmonary embolism Z86.711 [facility] [address] [place] [address] 04/19/2022 Gladys Bella Anxiety disorder, unspecified F41.9 [facility] [address] [place] [address] 04/27/2022 [facility] Anxiety F41.9 [facility] [address] [place] [address] 05/03/2022 [facility] [address] [place] [address] 05/04/2022 [facility] [address] [place] [address] 05/09/2022 [facility] [address] [place] [address] 05/09/[address] [address] 05/17/[address] [address] 05/21/[address] [address] 05/23/2022 [facility] [address] [place] [address] 05/24/[address] [address] 05/25/2022 [facility] [address] [place] [address] 05/29/2022 [facility] [address] [place] [address] 06/05/2022 [facility] [address] [facility] [place] [address] 06/06/2022 [facility] [address] [place] [address] 06/07/2022 [facility] [address] [place] [address] 06/11/2022 [facility] [address] [place] [address] 06/13/2022 [facility] [address] [facility] [place] [address] 06/14/2022 [facility] [address] [place] [address] 06/18/2022 [facility] [address] [place] [address] 06/19/2022 [facility] [address] [place] [address] 06/21/2022 [facility] [address] [place] [address] 06/26/2022 [facility] [address] [place] [address] 06/28/2022 [facility] [address] [place] [address] 07/11/2022 [facility] [address] [place] [address] 07/16/2022 [facility] [address] [place] [address] 07/24/2022 [facility] [address] [place] [address] 07/27/2022 [facility] [address] [place] [address] 08/13/2022 [facility] [address] [place] [address] 08/16/2022 [facility] [address] [place] [address] 08/20/2022 [facility] [address] [place] [address] 08/22/2022 [facility] [address] [place] [address] 08/29/2022 [facility] [address] [place] [address] 09/03/2022 [facility] [address] [place] [address] 09/03/2022 [facility] [address] [place] [address] 09/04/2022 [facility] [address] [place] [address] 09/28/2022 [facility] Type 2 diabetes mellitus with unspecified complications E11.8 and Anxiety disorder, unspecified F41.[address] [address] 09/28/2022 [facility] [address] [place] [address] 10/05/2022 [facility] [address] [place] [address] 10/08/2022 [facility] [address] [place] [address] 10/08/2022 [facility] [address] [place] [address] 10/09/2022 [facility] [address] [place] [address] 10/15/2022 [facility] [address] [place] [address] 10/17/2022 [facility] [address] [place] [address] 10/19/2022 [facility] [address] [place] [address] 10/23/2022 [facility] [address] [place] [address] 10/25/2022 [facility] [address] [place] [address] 10/25/2022 [facility] Anxiety disorder, unspecified F41.9 [facility] [address] [place] [address] 10/26/2022 [facility] [address] [place] [address] 10/30/2022 [facility] [address] [place] [address] 11/14/2022 [facility] [address] [place] [address] 11/15/2022 [facility] [address] [place] [address] 11/23/2022 [facility] [address] [place] [address] 12/04/2022 [facility] [address] [place] [address] 01/10/2023 [facility] [address] [place] [address] 01/22/2023 [facility] [address] [place] [address] 01/29/2023 [facility] [address] [place] [address] 02/04/2023 [facility] [address] [place] [address] 02/05/2023 [facility] [address] [place] [address] 02/05/2023 [facility] [address] [place] [address] 02/06/2023 [facility] ASSESSMENTS Encounter Date Diagnosis Assessment Notes Treatment [...] (COMPLETE BLOOD COUNT) 12/17/2019 COMPREHENSIVE METABOLIC PANEL 02/13/2019 COMPREHENSIVE METABOLIC PANEL 03/21/2022 COMPREHENSIVE METABOLIC PANEL 06/15/2021 CREATININE 12/26/2018 HEMOGLOBIN A1C 06/15/2021 HEMOGLOBIN A1C 02/13/2019 HEMOGLOBIN A1C 04/23/2019 LIPID PANEL 06/15/2021 LIPID PANEL 02/13/2019 MICROALBUMIN, URINE 02/13/2019 MICROALBUMIN, URINE 06/15/2021 PROTIME PROFILE 12/26/2018 PROTIME PROFILE 06/29/2021 FECAL WHITE CELLS 01/26/2022 PT/INR 10/09/2017 PT/INR 05/01/2018 PT/INR 10/04/2017 URINALYSIS 07/04/2018 Basic Metabolic Panel 12/23/2019 Chlamydia [...] [facility] [address] [place] [address] [id number] Ayden Bear Self - patient is the insured MEDICATIONS ADMINISTERED Medication Instructions Date of Administration Dosage Notes Vitamin B-12 05/27/2020 MEDICAL (GENERAL) HISTORY Medical History History ICD Code hypertension, benign Hbe-[id number]-tuppekkgd diabetes mellitus type 2 Class III obesity [...] and question of amyloid in 2019 at [facility] Lactic acidosis acute kidney injury 2021 TAMAR- Talk to Giovanni Nichols Therapist CVA with no residual deficit Surgical History Surgery Date(Month/Year) cholecystectomy cardiac cath Hospitalization History Reason Date(Month/Year) antonio lactic acidosis 2021 blood clot in lung
--- NOTE | 2023-02-16 15:03 | PC.ADMIT ---
Ayden is a 52-year-old male admitted from [facility] to M3 on a CV for treatment of SI/HI. Pt was assessed on [facility] for stroke symptoms. Pt has medical hx DVT, HTN, PE, stroke, and diabetes. MRI showed new 1.1 cm soft tissue hematoma. During admission assessment, pt was alert, oriented, pleasant and cooperative. Pt endorses depression but denies SI/HI/AH/VH. Pt described being frustrated with one of the covering psychiatrists and said I just wanted to push her through a wall. Pt reports being upset that she was asking me the same questions when I was trying to get dressed. Pt then unbuttoned his amaury top during this admission assessment and had to be redirected. Pt reports feeling constipated x2 days. Pt is wearing jenna stockings to help with bilateral edema. Pt placed on 15 minute safety checks.
--- NOTE | 2023-02-16 15:34 | PC.NURSE ---
Pt refused flu vaccine
[2023-02-16 16:34] VITALS: BP 146/98; PULSE 87; RESP 18; TEMP 35.6; O2SAT 100
[2023-02-16] MEDS: Warfarin Sodium 7.5 MG TABLET 15 MG PO (17:54)
[2023-02-16 20:00] VITALS: BP 142/81; PULSE 88; RESP 18; TEMP 36.7; O2SAT 98
[2023-02-16] MEDS: carvediloL 12.5 MG TABLET PO (21:39)
[2023-02-16] MEDS: Atorvastatin Calcium 20 MG TABLET PO (21:39)
[2023-02-16] MEDS: Topiramate 100 MG TABLET PO (21:40)
[2023-02-16] MEDS: Sacubitril/Valsartan 49/51 1 TAB TABLET PO (21:40)
[2023-02-17 08:05] VITALS: BP 179/109; PULSE 74; RESP 18; TEMP 36.4; O2SAT 99
[2023-02-17] MEDS: amLODIPine Besylate 5 MG TABLET PO (08:06)
[2023-02-17] MEDS: Venlafaxine HCl ER 75 MG CAP.ER.24H PO (08:06)
[2023-02-17] MEDS: Sacubitril/Valsartan 49/51 1 TAB TABLET PO ×2 (08:06→21:27)
[2023-02-17] MEDS: metFORMIN HCl 1,000 MG TABLET 1000 MG PO (08:06)
[2023-02-17] MEDS: carvediloL 12.5 MG TABLET PO ×2 (08:07→21:28)
[2023-02-17] MEDS: Topiramate 100 MG TABLET PO ×2 (08:07→21:27)
[2023-02-17 08:19] LABS: INTERNATIONAL NORM RATIO 2.9 (0.9-1.1); Prothrombin Time 35.2 SEC (11.1-13.3)
[2023-02-17 08:33] LABS: Alanine Aminotransferase 20 U/L (0-40); Alkaline Phosphatase 91 U/L (39-117); Anion Gap 12 (12-20); Aspartate Amino Transferase 18 U/L (5-37); Bilirubin Total 0.4 mg/dL (0.0-1.0); Blood Urea Nitrogen 28 mg/dL (9-16); Calcium 9.1 mg/dL (8.4-10.2); Carbon Dioxide 27 mmol/L (22-29); Chloride 107 mmol/L (96-108); Cholesterol 172 mg/dL (<200); Estimated Glomerular Filt Rate > 60; Glucose Fasting 137 mg/dL (60-99); HDL Cholesterol 42 mg/dL (>40); LDL Cholesterol Calculated 107 mg/dL (<100); Potassium 3.5 mmol/L (3.3-5.1); Sodium 142 mmol/L (135-145); Total Protein 7.2 g/dL (6.5-8.0); Triglycerides 116 mg/dL (<150)
[2023-02-17 09:21] VITALS: BP 125/93; PULSE 73
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
[2023-02-17] MEDS: Warfarin Sodium 7.5 MG TABLET 15 MG PO (17:45)
[2023-02-17 21:12] VITALS: BP 144/86; PULSE 84; RESP 18; TEMP 36.9; O2SAT 98
[2023-02-17] MEDS: Atorvastatin Calcium 20 MG TABLET PO (21:27)
[2023-02-17] MEDS: Mirtazapine 7.5 MG TABLET PO (21:28)
[2023-02-17 21:33] LABS: Glucose, Whole Blood 174 mg/dL (60-115)
[2023-02-18 08:24] VITALS: BP 135/91; PULSE 77; RESP 16; TEMP 36.2; O2SAT 97
[2023-02-18] MEDS: Topiramate 100 MG TABLET PO ×2 (08:28→21:11)
[2023-02-18] MEDS: Aspirin 81 MG TAB.CHEW PO (08:28)
[2023-02-18] MEDS: metFORMIN HCl 1,000 MG TABLET 1000 MG PO (08:28)
[2023-02-18] MEDS: amLODIPine Besylate 5 MG TABLET PO (08:28)
[2023-02-18] MEDS: Venlafaxine HCl ER 75 MG CAP.ER.24H PO (08:28)
[2023-02-18] MEDS: carvediloL 12.5 MG TABLET PO ×2 (08:28→21:11)
[2023-02-18] MEDS: Sacubitril/Valsartan 49/51 1 TAB TABLET PO ×2 (08:30→21:10)
[2023-02-18 08:32] LABS: INTERNATIONAL NORM RATIO 2.8 (0.9-1.1); Prothrombin Time 34.2 SEC (11.1-13.3)
[2023-02-18 08:46] LABS: Glucose, Whole Blood 190 mg/dL (60-115)
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
[2023-02-18] MEDS: Warfarin Sodium 7.5 MG TABLET 15 MG PO (17:37)
[2023-02-18 21:00] VITALS: BP 161/85; PULSE 72; RESP 18; TEMP 36.5; O2SAT 100
[2023-02-18] MEDS: Atorvastatin Calcium 20 MG TABLET PO (21:10)
[2023-02-18] MEDS: Mirtazapine 7.5 MG TABLET PO (21:11)
[2023-02-18 21:26] LABS: Glucose, Whole Blood 179 mg/dL (60-115)
[2023-02-19 06:00] VITALS: BP 154/86; PULSE 68; TEMP 36.1; O2SAT 99
[2023-02-19 07:21] LABS: Glucose, Whole Blood 183 mg/dL (60-115)
[2023-02-19] MEDS: metFORMIN HCl 1,000 MG TABLET 1000 MG PO (08:36)
[2023-02-19] MEDS: carvediloL 12.5 MG TABLET PO ×2 (08:36→20:39)
[2023-02-19] MEDS: amLODIPine Besylate 5 MG TABLET PO (08:36)
[2023-02-19] MEDS: Sacubitril/Valsartan 49/51 1 TAB TABLET PO ×2 (08:36→20:39)
[2023-02-19] MEDS: Venlafaxine HCl ER 75 MG CAP.ER.24H PO (08:37)
[2023-02-19] MEDS: Topiramate 100 MG TABLET PO ×2 (08:37→20:38)
[2023-02-19 08:40] LABS: INTERNATIONAL NORM RATIO 2.7 (0.9-1.1)
--- NOTE | 2023-02-19 09:23 | P.PNPSI_ITS ---
Subjective Subjective Date of Service: 02/19/23 Reason For Visit: Mood disorder Subjective Notes: Conditional Voluntary Interim History: Patient seen psychiatric coverage patient somewhat lethargic no complaints of numbness tingling or weakness. Patient depressed intermittently hopeless helpless with worsening losses in his life denies active SI in the setting he is hopeful the structure of a [facility] hospital might be helpful Medication Compliance: Yes Mental Status Exam Mental Status Exam Patient Appearance: Appropriate Patient Orientation: Person, Place, Time and Situation Level of Consciousness: Awake and Appropriate Mood Description: Depressed and Blunted Affect Description: Appropriate and Constricted Patient Cognition Impaired: No Ability to Follow Directions: Good Speech Pattern: Clear Memory Description: Intact Hallucinations: None Delusions: Not Present Thought Process: Intact and Goal Oriented Thought Content: positive for Goal Oriented, positive for Preoccupation, positive for Suicidal Ideation (passive si hopeless) and negative for Homicidal Ideation Depressive Symptoms: Increased Anxiety, Increased Irritability, Hopelessness, Increased Fatigue, Loss of Energy and Difficulty Concentrating Judgement: Fair Diagnostics Vital Signs (24Hr): Vital Signs - 24 hr 02/18/23 21:00 02/19/23 06:00 Temperature 97.7 F 97 F Pulse Rate 72 68 Respiratory Rate 18 Blood Pressure 161/85 H 154/86 H Pulse Oximetry 100 99 Oxygen Delivery Method Room Air Room Air Labs 02/17/23 07:56 Labs: Laboratory Results - last 48 hr 02/17/23 02/18/23 02/18/23 21:25 08:05 08:40 PT 34.2 H INR 2.8 H POC Glucose 174 H 190 H 02/18/23 02/19/23 02/19/23 21:21 07:17 08:12 PT 33.0 H INR 2.7 H POC Glucose 179 H 183 H Medications Medications Current Medications Acetaminophen (Acetaminophen 325 Mg Tablet) 650 mg PO Q6H PRN PRN Reason: Headache/Pain Mild Scale (1-3) Al Hydroxide/Mg Hydroxide (Magnesium Hydrox/Alum Hydrox 30 Ml Oral.Susp) 30 ml PO Q6H PRN PRN Reason: Heartburn/Nausea Amlodipine Besylate (Amlodipine Besylate 5 Mg Tablet) 5 mg PO DAILY [facility]; Protocol Last Admin: 02/19/23 08:36 Dose: 5 mg Aspirin (Aspirin 81 Mg Tab.Chew) 81 mg PO MoWeFr@0800 [facility] Last Admin: 02/18/23 08:28 Dose: 81 mg Atorvastatin Calcium (Atorvastatin Calcium 20 Mg Tablet) 20 mg PO BEDTIME [facility] Last Admin: 02/18/23 21:10 Dose: 20 mg Carvedilol (Carvedilol 12.5 Mg Tablet) 12.5 mg PO BID [facility]; Protocol Last Admin: 02/19/23 08:36 Dose: 12.5 mg Hydroxyzine HCl (Hydroxyzine Hcl 25 Mg Tablet) 25 mg PO Q6H PRN PRN Reason: Anxiety Magnesium Hydroxide (Milk Of Magnesia 30 Ml Oral.Susp) 30 ml PO DAILY PRN PRN Reason: Constipation Metformin HCl (Metformin Hcl 1,000 Mg Tablet) 1,000 mg PO DAILY [facility] Last Admin: 02/19/23 08:36 Dose: 1,000 mg Mirtazapine (Mirtazapine 7.5 Mg Tablet) 7.5 mg PO BEDTIME [facility] Last Admin: 02/18/23 21:11 Dose: 7.5 mg Sacubitril/Valsartan (Sacubitril/Valsartan 49/51 1 Tab Tablet) 1 tab PO BID [facility]; Protocol Last Admin: 02/19/23 08:36 Dose: 1 tab Topiramate (Topiramate 100 Mg Tablet) 100 mg PO BID [facility] Last Admin: 02/19/23 08:37 Dose: 100 mg Trazodone HCl (Trazodone Hcl 50 Mg Tablet) 50 mg PO BEDTIME MRX1 PRN PRN Reason: Insomnia Venlafaxine HCl (Venlafaxine Hcl Er 75 Mg Cap.Er.24h) 75 mg PO DAILY [facility] Last Admin: 02/19/23 08:37 Dose: 75 mg Warfarin Sodium (Warfarin Sodium 7.5 Mg Tablet) 15 mg PO DAILY@1800 [facility] Last Admin: 02/18/23 17:37 Dose: 15 mg Allergies Allergies Allergy/AdvReac Type Severity Reaction Status Date / Time dapagliflozin Allergy Unknown Verified 02/09/23 17:54 vancomycin Allergy Unknown Verified 02/08/23 03:44 Assessment & Plan Assessment & Plan (1) MDD (major depressive disorder), recurrent episode, severe: Status: Acute Code(s): F33.2 - Major depressive disorder, recurrent severe without psychotic features Assessment and Plan: Add remeron 7.5 mg nightly Consider increasing Effexor but will need to monitor BP (2) CVA (cerebral vascular accident): Status: Acute Code(s): I63.9 - Cerebral infarction, unspecified Assessment and Plan: started on ASA 81 mg M,W,F continue coumadin, check PT/INR daily Teds stockings (3) HTN (hypertension): Status: Acute Code(s): I10 - Essential (primary) hypertension Assessment and Plan: Continue current antihypertensives, monitor BP Plan 02/17: Add remeron 7.5 mg nightly. Consider increasing Effexor but will need to monitor BP. started on ASA 81 mg M,W,. continue coumadin, check PT/INR daily. Teds stockings. Continue current antihypertensives, monitor BP. 02/18: continue current mgmt. likely to increase effexor prior to discharge. full range of affect, well-related. intermittent passive SI. planning to attend groups and pursue referral to PHP. 02/19 hx of afib dvt on coumadin mood dep flat referral php ? tms Patient educated on: diagnosis and therapeutic strategies Informed Consent: understands Reason for continued inpatient stay Substantial Risk for: harm to self and rapid decompensation Time Spent With Patient Time: Total time managing care of this patient today ____ minutes.
[2023-02-19] MEDS: Warfarin Sodium 7.5 MG TABLET 15 MG PO (19:33)
--- NOTE | 2023-02-19 19:36 | PC.NURSE ---
On Saturday02/09/23 at [address] Garcia the following, Ayden Bear [id number] is due for midodrine but BP this AM 162/102 and last night 185/89. Do you want to put a parameter on the midodrine? In response midodrine was placed on hold. On Saturday02/10/23 at [address] Marcelo the following, Ayden Chema 323-2 INR keeps dropping - 1.3 today. He says his goal is 2-2.5. Do you all automatically adjust his coumadin dose or are we supposed to contact you? In response coumadin dose was increased to 15mg.
[2023-02-19 20:30] VITALS: BP 158/99; PULSE 78; RESP 16; TEMP 36.5; O2SAT 98
[2023-02-19] MEDS: Atorvastatin Calcium 20 MG TABLET PO (20:38)
[2023-02-19] MEDS: Mirtazapine 7.5 MG TABLET PO (20:38)
[2023-02-19 22:37] LABS: Glucose, Whole Blood 199 mg/dL (60-115)
[2023-02-20 06:00] VITALS: BP 128/84; PULSE 79; TEMP 36.2; O2SAT 94
[2023-02-20 07:39] LABS: Glucose, Whole Blood 161 mg/dL (60-115)
[2023-02-20 08:23] VITALS: BP 128/84; PULSE 79; RESP 18; TEMP 36.2; O2SAT 94
[2023-02-20] MEDS: Venlafaxine HCl ER 75 MG CAP.ER.24H PO (08:25)
[2023-02-20] MEDS: amLODIPine Besylate 5 MG TABLET PO (08:25)
[2023-02-20] MEDS: metFORMIN HCl 1,000 MG TABLET 1000 MG PO (08:25)
[2023-02-20] MEDS: Aspirin 81 MG TAB.CHEW PO (08:25)
[2023-02-20] MEDS: carvediloL 12.5 MG TABLET PO ×2 (08:25→20:43)
[2023-02-20] MEDS: Sacubitril/Valsartan 49/51 1 TAB TABLET PO ×2 (08:25→20:44)
[2023-02-20] MEDS: Topiramate 100 MG TABLET PO ×2 (08:25→20:44)
[2023-02-20 09:31] LABS: INTERNATIONAL NORM RATIO 2.7 (0.9-1.1); Prothrombin Time 33.4 SEC (11.1-13.3)
--- NOTE | 2023-02-20 15:10 | P.PNPSI_ITS ---
Subjective Subjective Date of Service: 02/20/23 Reason For Visit: Mood disorder Interim History: improved, stable. informed of saturday discharge. pt agreeable. encouraged to plan to fill days with activities. Mental Status Exam Mental Status Exam Narrative: Appearance: wearing street clothes, fair hygiene, in NAD Psychomotor: no agitation or retardation noted Speech: clear, normal rate/rhythm/volume, spontaneous TP: linear TC: planning for the future Mood: better Affect: full range, normo-intense, non-labile SI: i'm handling it a little better HI: none expressed Delusions: none expressed VH/AH: none expressed Insight/judgment: fair x 2. Memory/cog: alert, oriented x 3. no formal testing. Diagnostics Vital Signs (24Hr): Vital Signs - 24 hr 02/19/23 20:30 02/20/23 06:00 02/20/23 08:23 Temperature 97.7 F 97.2 F 97.2 F Pulse Rate 78 79 79 Respiratory Rate 16 18 Blood Pressure 158/99 H 128/84 128/84 Pulse Oximetry 98 94 94 Oxygen Delivery Method Room Air Room Air Room Air Labs 02/17/23 07:56 Labs: Laboratory Results - last 48 hr 02/18/23 02/19/23 02/19/23 21:21 07:17 08:12 PT 33.0 H INR 2.7 H POC Glucose 179 H 183 H 02/19/23 02/20/23 02/20/23 22:33 07:35 08:45 PT 33.4 H INR 2.7 H POC Glucose 199 H 161 H Medications Medications Current Medications Acetaminophen (Acetaminophen 325 Mg Tablet) 650 mg PO Q6H PRN PRN Reason: Headache/Pain Mild Scale (1-3) Al Hydroxide/Mg Hydroxide (Magnesium Hydrox/Alum Hydrox 30 Ml Oral.Susp) 30 ml PO Q6H PRN PRN Reason: Heartburn/Nausea Amlodipine Besylate (Amlodipine Besylate 5 Mg Tablet) 5 mg PO DAILY [facility]; Protocol Last Admin: 02/20/23 08:25 Dose: 5 mg Aspirin (Aspirin 81 Mg Tab.Chew) 81 mg PO MoWeFr@0800 [facility] Last Admin: 02/20/23 08:25 Dose: 81 mg Atorvastatin Calcium (Atorvastatin Calcium 20 Mg Tablet) 20 mg PO BEDTIME [facility] Last Admin: 02/19/23 20:38 Dose: 20 mg Carvedilol (Carvedilol 12.5 Mg Tablet) 12.5 mg PO BID [facility]; Protocol Last Admin: 02/20/23 08:25 Dose: 12.5 mg Hydroxyzine HCl (Hydroxyzine Hcl 25 Mg Tablet) 25 mg PO Q6H PRN PRN Reason: Anxiety Magnesium Hydroxide (Milk Of Magnesia 30 Ml Oral.Susp) 30 ml PO DAILY PRN PRN Reason: Constipation Metformin HCl (Metformin Hcl 1,000 Mg Tablet) 1,000 mg PO DAILY [facility] Last Admin: 02/20/23 08:25 Dose: 1,000 mg Mirtazapine (Mirtazapine 7.5 Mg Tablet) 7.5 mg PO BEDTIME [facility] Last Admin: 02/19/23 20:38 Dose: 7.5 mg Sacubitril/Valsartan (Sacubitril/Valsartan 49/51 1 Tab Tablet) 1 tab PO BID [facility]; Protocol Last Admin: 02/20/23 08:25 Dose: 1 tab Topiramate (Topiramate 100 Mg Tablet) 100 mg PO BID [facility] Last Admin: 02/20/23 08:25 Dose: 100 mg Trazodone HCl (Trazodone Hcl 50 Mg Tablet) 50 mg PO BEDTIME MRX1 PRN PRN Reason: Insomnia Venlafaxine HCl (Venlafaxine Hcl Er 75 Mg Cap.Er.24h) 75 mg PO DAILY [facility] Last Admin: 02/20/23 08:25 Dose: 75 mg Warfarin Sodium (Warfarin Sodium 7.5 Mg Tablet) 15 mg PO DAILY@1800 [facility] Last Admin: 02/19/23 19:33 Dose: 15 mg Allergies Allergies Allergy/AdvReac Type Severity Reaction Status Date / Time dapagliflozin Allergy Unknown Verified 02/09/23 17:54 vancomycin Allergy Unknown Verified 02/08/23 03:44 Assessment & Plan Assessment & Plan (1) MDD (major depressive disorder), recurrent episode, severe: Status: Acute Code(s): F33.2 - Major depressive disorder, recurrent severe without psychotic features Assessment and Plan: Add remeron 7.5 mg nightly Consider increasing Effexor but will need to monitor BP (2) CVA (cerebral vascular accident): Status: Acute Code(s): I63.9 - Cerebral infarction, unspecified Assessment and Plan: started on ASA 81 mg M,W,F continue coumadin, check PT/INR daily Teds stockings (3) HTN (hypertension): Status: Acute Code(s): I10 - Essential (primary) hypertension Assessment and Plan: Continue current antihypertensives, monitor BP Plan 02/17: Add remeron 7.5 mg nightly. Consider increasing Effexor but will need to monitor BP. started on ASA 81 mg M,W,F. continue coumadin, check PT/INR daily. Teds stockings. Continue current antihypertensives, monitor BP. 02/18: continue current mgmt. likely to increase effexor prior to discharge. full range of affect, well-related. intermittent passive SI. planning to attend groups and pursue referral to PHP. 02/19: hx of afib dvt on coumadin mood dep flat referral php ? tms 02/20: PHP referral inplace, intake scheduled for the end of february. planning for saturday discharge. mood improved, less SI, planning for the future. Reason for continued inpatient stay Substantial Risk for: inability to function and rapid decompensation Time Spent With Patient Time: Total time managing care of this patient today _35___ minutes.
[2023-02-20] MEDS: Warfarin Sodium 7.5 MG TABLET 15 MG PO (18:27)
[2023-02-20 19:55] VITALS: BP 162/91; PULSE 78; RESP 16; TEMP 36.6; O2SAT 99
[2023-02-20] MEDS: Atorvastatin Calcium 20 MG TABLET PO (20:43)
[2023-02-20] MEDS: Mirtazapine 7.5 MG TABLET PO (20:44)
[2023-02-20 21:14] LABS: Glucose, Whole Blood 144 mg/dL (60-115)
[2023-02-21 08:33] LABS: Glucose, Whole Blood 121 mg/dL (60-115)
[2023-02-21 08:55] VITALS: BP 152/93; PULSE 67; RESP 20; TEMP 1.8; TEMP 35.3; O2SAT 97
[2023-02-21] MEDS: amLODIPine Besylate 5 MG TABLET PO (08:58)
[2023-02-21] MEDS: Sacubitril/Valsartan 49/51 1 TAB TABLET PO (08:59)
[2023-02-21] MEDS: metFORMIN HCl 1,000 MG TABLET 1000 MG PO (08:59)
[2023-02-21] MEDS: carvediloL 12.5 MG TABLET PO (08:59)
[2023-02-21] MEDS: Topiramate 100 MG TABLET PO (08:59)
[2023-02-21] MEDS: Venlafaxine HCl ER 75 MG CAP.ER.24H PO (08:59)
[2023-02-21 09:16] LABS: Prothrombin Time 36.3 SEC (11.1-13.3)
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
--- NOTE | 2023-02-21 15:14 | PC.NURSE ---
Patient easily engaged. Reports mood has improved. Denies depression or sadness at this time. Feels better after telling his mother to back the fuck off . Denies SI/HI plan or intent. Denies perceptual disturbances, no overt psychosis or expressed delusions. Future oriented, planning to surprise renay team tonight after obtaining new car registration. Discharge paperwork reviewed with patient, reports understanding. Medications reviewed with patient reports understanding. Follow up appointments reviewed with patient, reports understanding. All belongings taken with patient. Crisis numbers provided.
== END 2023-02-21 14:30 | disposition home or self-care (01) | DRG 751 ==
PROVIDERS: Admitting Provider Psychiatry & Neurology Psychiatry; Visit Provider Psychiatry & Neurology Psychiatry
DX: F33.2 Major depressive disorder, recurrent severe without psychotic features (principal); E11.40 Type 2 diabetes mellitus with diabetic neuropathy, unspecified; I10 Essential (primary) hypertension; Z79.01 Long term (current) use of anticoagulants; Z79.82 Long term (current) use of aspirin; Z79.84 Long term (current) use of oral hypoglycemic drugs; Z79.899 Other long term (current) drug therapy
CPT/HCPCS: 36415; 80053; 80061; 82947; 85610

== ENCOUNTER → 2023-02-16 13:06 | Outpatient (BNV) | payer OTHER, SELFPAY | PROVIDERS: Admitting Provider Psychiatry & Neurology Psychiatry; Visit Provider Psychiatry & Neurology Psychiatry | DX: F33.2 Major depressive disorder, recurrent severe without psychotic features (principal); I63.9 Cerebral infarction, unspecified; I10 Essential (primary) hypertension | CPT/HCPCS: 99231 ==

== ENCOUNTER → 2023-02-16 13:06 | Outpatient (BNV) | payer OTHER, SELFPAY | PROVIDERS: Admitting Provider Psychiatry & Neurology Psychiatry; Visit Provider Psychiatry & Neurology Psychiatry | DX: F33.2 Major depressive disorder, recurrent severe without psychotic features (principal); I63.9 Cerebral infarction, unspecified; I10 Essential (primary) hypertension | CPT/HCPCS: 90792; 99232; 99239 ==

== ENCOUNTER → 2023-02-28 10:30 | Outpatient (BNV) | payer OTHER, SELFPAY | PROVIDERS: Visit Provider Psychiatry & Neurology Psychiatry | DX: F33.2 Major depressive disorder, recurrent severe without psychotic features (principal) | CPT/HCPCS: 90792 ==

== ENCOUNTER 2023-03-01 10:30 | Outpatient (RCR) | payer OTHER, SELFPAY ==
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
[2023-02-26 13:11] VITALS: BP 128/82; PULSE 80; TEMP 37.1
--- NOTE | 2023-02-28 17:42 | HO.PHP ---
The client's case was reviewed and opened in treatment team.
--- NOTE | 2023-03-01 13:34 | HO.PHP ---
PHP staff member reached out to Saravanan Valdez who is Ayden's assigned OP therapist. PHP staff member explored if she could gather when Ayden's next appointment is with the corporate receptionist. The corporate receptionist disclosed that Saravanan schedules his own appointments, in which she paged me to Saravanan's phone line. PHP staff member left a VM asking to return her call with the information. PHP staff informed Ayden that she reached out to Saravanan and is awaiting a call back. PHP staff encouraged Ayden to also call as well to see if he is able to obtain that information. Ayden was receptive.
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
--- NOTE | 2023-03-01 15:59 | HO.PHP ---
[facility] staff followed up with Ayden and provided him with information on a men's group in [place], [place]. Ayden was receptive.
== END 2023-03-01 23:59 | disposition home or self-care (01) ==
LOC: HO.PHPA 10:30
PROVIDERS: Visit Provider Psychiatry & Neurology Psychiatry
DX: F33.2 Major depressive disorder, recurrent severe without psychotic features (principal); Z79.899 Other long term (current) drug therapy
CPT/HCPCS: 90791; 90853

== ENCOUNTER 2024-07-07 14:00 | Outpatient (AMB) | payer OTHER, SELFPAY ==
--- NOTE | 2024-07-07 14:33 | HO.NEPHOV_ITS ---
Vital Signs 07/07/24 14:41 Height 5 ft 6 in Weight 331 lb 2 oz BMI 53.4 BP 160/110 H Blood Pressure Location Lt brachial Position Sitting Pulse 88 Pulse Source Pulse Oximeter Pulse Oximetry (%) 94 Oxygen Delivery Method Room Air Intake Visit Reasons: ENP: HTN- Conf Psychologist Clinical Required: No Accompanied by: Self / Same As Patient Allergies vancomycin Allergy (Verified 07/07/24 14:40) Unknown HPI Comments Details: I had the delight of seeing Mr Bear in consultation for resistant hypertension. He is 53 years of age and currently unemployed. He has been having blood pressure well over 20 years and had been on medications, which he is compliant with. He denies excess sodium in the diet. He has H/O retinopathy and CVA. He is a diabetic & has obstructive sleep apnea and is on CPAP which he claims to be compliant with. His blood sugar is not well controlled. He denies any proteinuria or renal dysfunction. He has not had any Doppler of his renal arteries. He denies any history of cocaine use. He denies any other systemic complaints other than what has been mentioned above. He is quite concerned about her ongoing poor blood pressure control. [facility] Medical History HTN (hypertension) Unspecified mononeuropathy of bilateral lower limbs Solitary pulmonary nodule Cerebral infarction Nontraumatic intracerebral hemorrhage, unspecified Other pulmonary embolism without acute cor pulmonale Retinal artery branch occlusion of right eye Polyneuropathy Hereditary and idiopathic neuropathy, unspecified TRAM (obstructive sleep apnea) Insomnia Other transient cerebral ischemic attacks and related syndromes Male erectile disorder MDD (major depressive disorder), recurrent episode, severe Vitamin B12 deficiency anemia due to intrinsic factor deficiency Tinea pedis Generalized anxiety disorder Hyperlipidemia Type II diabetes mellitus Neuropathy CHF (congestive heart failure) CVA (cerebral vascular accident) Cerebellar infarction Abnormal CT scan, head Surgical History (Updated 07/07/24 @ 14:35 by Aubree Manrique MA) Hx of cardiac cath History of cholecystectomy Family History (Updated 07/07/24 @ 14:34 by Aubree Manrique MA) Father Diabetes Social History (Updated 07/07/24 @ 14:34 by Aubree Manrique MA) Household Members: None Housing: Apartment Do you presently have visiting nurse or other home services: No Alcohol intake: former Comment: 1:1 for SI Patient Tobacco Use Status: Never used Tobacco e-Cigarette/Vaping Use: Never Used service: No Sexual orientation: Straight/Heterosexual Review of Systems Const All systems reviewed & are unremarkable except as noted in HPI and below Physical Exam Vital Signs: Last Vital Signs Pulse 88 07/07/24 14:41 BP 160/110 H 07/07/24 14:41 Pulse Ox 94 07/07/24 14:41 Oxygen Delivery Method Room Air 07/07/24 14:41 BMI result Body Mass Index 53.4 Const General: comfortable and no acute distress Orientation/consciousness: patient oriented x3 HEENT Head: Yes normocephalic Mouth: Normal oral and palatal mucosa present Eyes EOM: EOMs intact bilaterally Neck Neck: Yes supple Resp Auscultation: clear to auscultation bilaterally Cardio Jugular venous distension: no JVD Rate: regular rate GI Palpation (GI): Soft to palpation Auscultation: normal bowel sounds General: Yes no CVA tenderness Back/Spine/Pelvis Back: no CVA tenderness Skin General skin exam: no rashes or lesions noted Neuro General: patient oriented x3 and moves all extremities Extrem General: Yes no pedal edema Results Reviewed Nephrology Results: Hgb 13.9 g/dl (14.0-18.0) L 02/15/23 WBC 9.4 X10*3/uL (4.8-10.8) 02/15/23 Plt Count 209 X10*3/uL (160-400) 02/15/23 Sodium 142 mmol/L (135-145) 02/17/23 Potassium 3.5 mmol/L (3.3-5.1) 02/17/23 Chloride 107 mmol/L (96-108) 02/17/23 Carbon Dioxide 27 mmol/L (22-29) 02/17/23 BUN 28 mg/dL (9-16) H 02/17/23 Creatinine 1.04 mg/dL (0.5-1.4) 02/17/23 Calcium 9.1 mg/dL (8.4-10.2) 02/17/23 Assessment & Plan Assessment & Plan (1) HTN (hypertension): Code(s): I10 - Essential (primary) hypertension Category: Medical Qualifiers: Hypertension type: primary hypertension Qualified Code(s): I10 - Esse ntial (primary) hypertension Plan Life style modifications including weight loss , exercise and low sodium diet Continue with current medications as well as CPAP; 24 hour BPM ordered Likely will need Doppler of renal arteries; Renal function normal On Entresto as well as Spironolactone/ Farxiga; Serum Potassium OK Needs to follow up his last ECHO. Shall optimize medications & W/U further based on 24 ABPM Answered all questions; Follow up given Orders: Orders AMB 24 HR B/P Monitor PLACEMENT Today I10 - Essential (primary) hypertension Medications: Discontinued mirtazapine Discontinued Reason: Patient no longer taking 7.5 mg PO BEDTIME 30 days 30 tabs 1RF venlafaxine ER Discontinued Reason: Patient no longer taking 75 mg PO DAILY 30 days 30 caps 1RF Coding Level of Care Code New Pt Level 4 (93190) Diagnoses Primary hypertension I10 Hypertension type: primary hypertension
[2024-07-07 14:41] VITALS: BP 160/110; PULSE 88; O2SAT 94; BMI 53.4
--- OUTSIDE RECORDS SUMMARY | 2024-07-07 17:29 | XMS_ITS ---
Author Organization [facility] Address [address] [place] [address] Care Team Providers Care Soaking Pits Supervisor Name Role Phone TORRI MOCK Primary Care Provider Priscila Faith Unavailable [phone] Allergies Allergen (clinical drug ingredient) Drug/Non Drug Allergy documented on EMR Reaction Allergy Type Onset Date Status vancomycin Vancomycin HCl Unknown Drug Allergy A ctive Reason For Referral Reason Persistent elevated Blood pressure despite being on 3 blood pressure meds Evaluate and treat Diagnosis 1 Essential (primary) hypertension (I10) Referral Organization [facility] Referring Provider First Name Priscila Referring Provider Last Name Vianney Referred Provider Specialty Nephrology General Notes Please call the sina ent to schedule the appointment Referral Priority Urgent Reason please evaluate and treat Diagnosis 1 Male erectile disord er (F52.21) Referral Organization [facility] Referring Provider First Name Priscila Referring Provider Last Name Vianney Referred Provider Specialty Urology Referral Priority Routine REASON FOR VISIT 2 wk bp check Medications Medication SIG (Take, Route, Frequency, Duration) Notes Start Date End Date Status Aspirin 81 MG 1 tablet Orally Once a day Active Warfarin Sodium 10 MG 1 tablet Orally On ce a day Active Multivitamin Men 50+ - as directed Orall y one tablet daily Active Entresto 49-51 MG 1 tablet Orally Twic e a day for 90 days 09/28/2022 Active PROzac 10 MG 1 capsule Orally Onc e a day 05/23/2023 Active amLODIPine Besylate 10 MG 1 tablet Orall y Once a day for 30 days 06/09/2024 Active hydrALAZINE HCl 25 MG 1 tablet with food Orally Twice a day for 30 days 06/26/2024 Active Lantus 100 UNIT/ML 15units Subcutaneous once at bedtime for 30 days 06/09/2024 Active Trulicity 0.75 MG/0.5ML as directed Subcutaneous weekly for 30 days 06/09/2024 Active Spironolactone 25 MG 1 tablet Orally 06/16/2024 Active amLODIPine Besylate 2.5 MG TAKE 1 TABLET BY MOUTH EVERY DAY FOR 30 DAYS for 90 Not-Taking Ozempic (0.25 or 0.5 MG/DOSE) 2 MG/3ML 0.25 mg Subcutaneous Once weekly for 30 days 06/08/2024 Not-Taki ng Effexor XR 75 MG 1 capsule with food Orally Once a day 04/03/2023 Not-Taking FreeStyle Lite - as directed use to t est blood sugars for 30 days 03/03/2020 Not-Taking Cymbalta 60 MG 1 capsule Orally Twi ce a day for 90 days Not-Taking Carvedilol 25 MG TAKE 1 TABLET BY MILADY TWICE A DAY WITH FOOD for 90 Not-Taking Topiramate 100 MG TAKE 1 TABLET BY MILDAY TWICE A DAY for 90 Active Mirtazapine 7.5 MG 1 tablet Orally At bedtime for 30 days Not-Taking Farxiga 5 MG 1 tablet Orally Once a day for 30 days 08/05/2023 Not-Taking hydrALAZINE HCl 25 MG 1 tablet with food Orally 2 times a day for 90 days 08/05/2023 Not-Taking Lidocaine 4 % 1 application as nee ded Externally Three times a day for 30 days 11/21/2023 Active Atorvastatin Calcium 40 MG 1 tablet Orally Once a day for 90 days Active Farxiga 10 MG 1 tablet Orally Once a day for 90 days 02/25/2024 Active Sildenafil Citrate 50 MG 1 tablet as nee ded Orally Once a day for 30 days 02/25/2024 Active Carvedilol 25 MG TAKE 1 TABLET BY MILADY TH TWICE A DAY WITH FOOD Orally Twice a day for 90 days Active OneTouch Lancets check blood sugars 3 times a day DX: E08.40 for 90 days 09/23/2023 Active FreeStyle Lite Test - check blood sugar 2 times a day for 90 days 11/08/2023 Active Freestyle Test Strips as directed use to check blood sugars 3 times a day for 90 days 03/03/2020 Active FreeStyle Lancets - as directed use to t est blood sugars 3 times a day for 90 days 03/03/2020 Active OneTouch Verio - check blood sugars 3 times a day DX: E08.40 for 90 days 09/23/2023 Active Blood Pressure Kit - With large adult cu ff. Dx: I10 for 30 days 11/15/2022 Active [facility] B-12 500 MCG TAKE 1 TABLET BY MILADY TH EVERY DAY FOR 30 DAYS for 90 Active amLODIPine Besylate 5 MG 1 tablet Orally Once a day for 90 days Not-Taking metFORMIN HCl 1000 MG TAKE 1 TABLET BY M OUTH EVERY DAY WITH A MEAL Orally twice a day for 90 days Active Social History Tobacco Use: Social History Observation Description Date Details (start date - stop date) Never Smoker NA - NA Tobacco Use/Smoking Question Answer Notes Are you a nonsmoker Alcohol Screen (Audit-C) Question Answer Notes Did you have a drink containing alcohol in the p ast year? No Points 0 Interpretation Negative Vital Signs Temperature 97.3 degrees Fahrenheit 06/27/19 25 Oximetry 95 % 06/26/2024 Heart Rate 74 /min 06/26/2024 Blood pressure systolic 160 mm Hg 06/27/19 25 Blood pressure diastolic 100 mm Hg 025 Weight 331.6 lbs 06/26/2024 BMI 52.54 kg/m2 06/26/2024 Height 66.61 in 06/26/2024 Encounters Encounter Location Date Provider Diagnosis [facility] [address] [address] 06/26/2024 Priscila Faith Essential (primary) hypertension I10 ; Diabetes mellitus due to underlying condition with diabetic neuropathy, unspecified E08.40 and Male erectile disorder F52.21 Assessments Encounter Date Diagnosis (ICD Code) Assessment Notes Treatment Notes Treatment Clinical Notes Section Notes 06/26/2024 Essential (primary) hypertension (ICD-10 - I10) Rio is a 53-year-old gentleman with CHF, hypertension, hyperlipidemia, generalized anxiety disorder and DM2 here for BP check. As follows Hypertension - Blood pressure is persistently elevated despite being on 3 different blood pressure medications. He has been compliant with his meds. He is noncompliant with his diet. I will start patient on hydralazine 25 mg twice daily. Check comp. I will also refer patient to nephrology to rule out secondary causes of hypertension Type 2 diabetes - He is on week 2 of Trulicity 0.75 recently approved, He was also supposed to be on Lantuus 15 units initially but he claims that he did not receive the prescription yet per prescription log medication has been sent patient is to check with the pharmacy and keep us updated. Continue on metformin, glimepiride, and Farxiga. Diet modification has been discussed Male erectile disorder - He is currently on sildenafil 50 mg and it is still not helping him maintain an erection. He does have an established urologist however due to the fact that he owes them a balance he would like to be referred to different specialty. Refer patient to urology. I have rendered the services for this patient under direct supervision of Dr. Mock, who did not see the patient but was available upon request 06/26/2024 Diabetes mellitus due to underlying condition with diabetic neuropathy, unspecified (ICD-10 - E08.40) Rio is a 53-year-old gentleman with CHF, hypertension, hyperlipidemia, generalized anxiety disorder and DM2 here for BP check. As follows Hypertension - Blood pressure is persistently elevated despite being on 3 different blood pressure medications. He has been compliant with his meds. He is noncompliant with his diet. I will start patient on hydralazine 25 mg twice daily. Check comp. I will also refer patient to nephrology to rule out secondary causes of hypertension Type 2 diabetes - He is on week 2 of Trulicity 0.75 recently approved, He was also supposed to be on Lantuus 15 units initially but he claims that he did not receive the prescription yet per prescription log medication has been sent patient is to check with the pharmacy and keep us updated. Continue on metformin, glimepiride, and Farxiga. Diet modification has been discussed Male erectile disorder - He is currently on sildenafil 50 mg and it is still not helping him maintain an erection. He does have an established urologist however due to the fact that he owes them a balance he would like to be referred to different specialty. Refer patient to urology. I have rendered the services for this patient under direct supervision of Dr. Mock, who did not see the patient but was available upon request 06/26/2024 Male erectile disorder (ICD-10 - F52.21) Rio is a 53-year-old gentleman with CHF, hypertension, hyperlipidemia, generalized anxiety disorder and DM2 here for BP check. As follows Hypertension - Blood pressure is persistently elevated despite being on 3 different blood pressure medications. He has been compliant with his meds. He is noncompliant with his diet. I will start patient on hydralazine 25 mg twice daily. Check comp. I will also refer patient to nephrology to rule out secondary causes of hypertension Type 2 diabetes - He is on week 2 of Trulicity 0.75 recently approved, He was also supposed to be on Lantuus 15 units initially but he claims that he did not receive the prescription yet per prescription log medication has been sent patient is to check with the pharmacy and keep us updated. Continue on metformin, glimepiride, and Farxiga. Diet modification has been discussed Male erectile disorder - He is currently on sildenafil 50 mg and it is still not helping him maintain an erection. He does have an established urologist however due to the fact that he owes them a balance he would like to be referred to different specialty. Refer patient to urology. I have rendered the services for this patient under direct supervision of Dr. Mock, who did not see the patient but was available upon request Plan Of Treatment Medication Medication Name Sig Start Date Stop Date Notes hydrALAZINE HCl 25 MG 1 tablet with food Orally Twice a day for 30 days 06/26/2024 Pending Test Test Name Order Date Hemoglobin [id number] 06/26/2024 Lipid [id number] 06/26/2024 Comp. Metabolic Panel [id number] 2024 Referrals Referral Date Details 06/26/2024 06/26/2024, Persiste nt elevated Blood pressure despite being on 3 blood pressure meds Evaluate and treat 06/26/2024 06/26/2024, please e valuate and treat Next Appt Details Follow Up: 2 Week-BP, Reason : Provider Name:Priscila garg, 07/16/2024 01:15:00 PM, [address] [place] [address], [id number], Progress Notes * Ayden BEARDOB: 3 (53 yo M)Acc No.[id number]:06/26/2024 Progress Notes Patient:?Ayden BEAR Provider:?Priscila Alfredomaura :1970???Age:53 Y???Sex:Male Gallo e:06/26/2024 Address:[address] [place], [place] [id number] Pcp:TORRI MOCK Subjective: * Chief Complaints: * ???2 wk bp check * HPI: ???Internal Medicine:?Rio is a 53-year-old gentleman with CHF, hypertension, hyperlipidemia, generalized anxiety disorder and DM2 here for BP check. He is anxious about child support. His blood pressure is elevated in the office today, he does take his blood pressure at home and usually it runs in the 160s.? He has been compliant with his medication but he is not compliant with that diet.? He denies any chest pain, shortness of breath, dyspnea on exertion. We have also started patient recently on Lantus 15 units which he claims that he did not get the prescription, prescription log description was sent successfully however he was able to get the Trulicity 0.75 and he started on it he is week 2 now.? Tolerating medication fine.??He denies any other active issues. * ROS:?General/Constitutional:?Overall health?Good.?Change in appetite?denies.?Chills?denies.?Fever?denies.?Night sweats?denies.?Sleep disturbance?denies.?Weight gain?admits, 7?pounds.?Weight loss?denies.?Neurologic:?Difficulty speaking?denies.?Dizziness?denies.?Gait abnormality?denies.?Headache?denies.?Loss of strength?denies.?Memory loss?denies.?Seizures?denies.?Tingling/Numbness?denies.?Ophthalmologic:?Blurred vision?denies.?Discharge?denies.?Dry eye?denies.?Red eye?denies.?ENT:?Change in Voice?Denies.?Cold Symptoms?Denies.?Cough?Denies.?Dizziness?Denies.?Nasal Congestion?Denies.?Otalgia?Denies.?postnasal drip?Denies.?Blocked ear?denies.?Nosebleed?denies.?Snoring?denies.?Cardiovascular:?Diaphoresis?Denies.?Pedal Edema?Denies.?PND (Paroxsymal nocturnal dyspnea)?Denies.?Chest pain?denies.?Difficulty laying flat?denies.?Dyspnea on exertion?denies.?Heart murmur?denies.?Orthopnea?denies.?Respiratory:?Snoring?denies.?Asthma?denies.?Cough?denies.?Shortness of breath with exertion?denies.?Sputum production?denies.?Wheezing?denies.?Gastrointestinal:?Change in bowel habits?denies.?Constipation?denies.?Decreased appetite?denies.?Diarrhea?denies.?Heartburn?denies.?Nausea?denies.?Vomiting?ty es.?Musculoskeletal:?tingling/numbness?Denies.?myalgias?Denies.?Joint Swelling?Denies.?extremeties?normal.?Arthritis?denies.?Back problems?denies.?Carpal tunnel?denies.?Joint stiffness?denies.?Muscle aches?denies.?Endocrine:?Bowel Changes?Denies.?Breast Discharge?Denies.?poor libido?Denies.?Cold intolerance?denies.?Excessive sweating?denies.?Excessive thirst?denies.?Frequent urination?denies.?Thyroid problems?denies.?Skin:?Bruising?Denies.?Eczema?denies.?Hair changes?denies.?Rash?denies.?Skin lesion(s)?denies.?Psychiatric:?Anxiety?denies.?Depressed mood?denies.?Difficulty sleeping?denies.?Nervous breakdown?denies.?Substance abuse?denies.?Urology:?abnormal menstrual bleeding?denies.?blood in urine?denies.?burning on urination?denies.?difficulty urinating?denies.?discharge?denies.?dysuria?denies.? * Medical History:? * Surgical History:?cholecyste ctomy cardiac cath * Hospitalization/Major Diagno stic Procedure:? * Family History:?Father: dece ased, colon cancer, diagnosed with Diabetes.?Mother: alive, lung cancer, diagnosed with Hypertension.? grandmother had cerebral aneurysm. * Social History:?Tobacco Use:?Tobacco Use/Smoking?Are you a?nonsmoker ???Drugs/Alcohol:?Drugs?Have you used drugs other than those for medical reasons in the past 12 months??No ?Alcohol Screen (Audit-C)?Did you have a drink containing alcohol in the past year??No ?Points?0 ?Interpretation?Negative ???Miscellaneous:?Exercise: none. ?Living with: alone. ?Occupation: Unemployed. * Medications:?TakingamLODIPin e Besylate 10 MG Tablet 1 tablet Orally Once a day Lantus 100 UNIT/ML Solution 15units Subcutaneous once at bedtime Trulicity 0.75 MG/0.5ML Solution Auto-injector as directed Subcutaneous weekly Spironolactone 25 MG Tablet 1 tablet Orally PROzac 10 MG Capsule 1 capsule Orally Once a day Aspirin 81 MG Tablet Delayed Release 1 tablet Orally Once a day Warfarin Sodium 10 MG Tablet 1 tablet Orally Once a day Multivitamin Men 50+ - Tablet as directed Orally one tablet daily Entresto 49-51 MG Tablet 1 tablet Orally Twice a day Blood Pressure Kit - Kit With large adult cuff. Dx: I10 [facility]S B-12 500 MCG Tablet TAKE 1 TABLET BY MOUTH EVERY DAY FOR 30 DAYS metFORMIN HCl 1000 MG Tablet TAKE 1 TABLET BY MOUTH EVERY DAY WITH A MEAL Orally twice a day Freestyle Test Strips as directed use to check blood sugars 3 times a day FreeStyle Lancets - Miscellaneous as directed use to test blood sugars 3 times a day OneTouch Verio - Strip check blood sugars 3 times a day DX: E08.40 OneTouch Lancets check blood sugars 3 times a day DX: E08.40 FreeStyle Lite Test - Strip check blood sugar 2 times a day Lidocaine 4 % Cream 1 application as needed Externally Three times a day Atorvastatin Calcium 40 MG Tablet 1 tablet Orally Once a day Farxiga 10 MG Tablet 1 tablet Orally Once a day Sildenafil Citrate 50 MG Tablet 1 tablet as needed Orally Once a day Carvedilol 25 MG Tablet TAKE 1 TABLET BY MOUTH TWICE A DAY WITH FOOD Orally Twice a day Topiramate 100 MG Tablet TAKE 1 TABLET BY MOUTH TWICE A DAY Taking amLODIPine Besylate 10 MG Tablet 1 tablet Orally Once a day Taking Lantus 100 UNIT/ML Solution 15units Subcutaneous once at bedtime Taking Trulicity 0.75 MG/0.5ML Solution Auto-injector as directed Subcutaneous weekly Taking Spironolactone 25 MG Tablet 1 tablet Orally Taking PROzac 10 MG Capsule 1 capsule Orally Once a day Taking Aspirin 81 MG Tablet Delayed Release 1 tablet Orally Once a day Taking Warfarin Sodium 10 MG Tablet 1 tablet Orally Once a day Taking Multivitamin Men 50+ - Tablet as directed Orally one tablet daily Taking Entresto 49-51 MG Tablet 1 tablet Orally Twice a day Taking Blood Pressure Kit - Kit With large adult cuff. Dx: I10 Taking CVS B-12 500 MCG Tablet TAKE 1 TABLET BY MOUTH EVERY DAY FOR 30 DAYS Taking metFORMIN HCl 1000 MG Tablet TAKE 1 TABLET BY MOUTH EVERY DAY WITH A MEAL Orally twice a day Taking Freestyle Test Strips as directed use to check blood sugars 3 times a day Taking FreeStyle Lancets - Miscellaneous as directed use to test blood sugars 3 times a day Taking OneTouch Verio - Strip check blood sugars 3 times a day DX: E08.40 Taking OneTouch Lancets check blood sugars 3 times a day DX: E08.40 Taking FreeStyle Lite Test - Strip check blood sugar 2 times a day Taking Lidocaine 4 % Cream 1 application as needed Externally Three times a day Taking Atorvastatin Calcium 40 MG Tablet 1 tablet Orally Once a day Taking Farxiga 10 MG Tablet 1 tablet Orally Once a day Taking Sildenafil Citrate 50 MG Tablet 1 tablet as needed Orally Once a day Taking Carvedilol 25 MG Tablet TAKE 1 TABLET BY MOUTH TWICE A DAY WITH FOOD Orally Twice a day Taking Topiramate 100 MG Tablet TAKE 1 TABLET BY MOUTH TWICE A DAY Not-TakingamLODIPine Besylate 5 MG Tablet 1 tablet Orally Once a day Mirtazapine 7.5 MG Tablet 1 tablet Orally At bedtime Farxiga 5 MG Tablet 1 tablet Orally Once a day hydrALAZINE HCl 25 MG Tablet 1 tablet with food Orally 2 times a day Carvedilol 25 MG Tablet TAKE 1 TABLET BY MOUTH TWICE A DAY WITH FOOD amLODIPine Besylate 2.5 MG Tablet TAKE 1 TABLET BY MOUTH EVERY DAY FOR 30 DAYS Ozempic (0.25 or 0.5 MG/DOSE) 2 MG/3ML Solution Pen-injector 0.25 mg Subcutaneous Once weekly Effexor XR 75 MG Capsule Extended Release 24 Hour 1 capsule with food Orally Once a day FreeStyle Lite - Device as directed use to test blood sugars Cymbalta 60 MG Capsule Delayed Release Particles 1 capsule Orally Twice a day Medication List reviewed and reconciled with the patientNot-Taking amLODIPine Besylate 5 MG Tablet 1 tablet Orally Once a day Not-Taking Mirtazapine 7.5 MG Tablet 1 tablet Orally At bedtime Not- Taking Farxiga 5 MG Tablet 1 tablet Orally Once a day Not-Taking hydrALAZINE HCl 25 MG Tablet 1 tablet with food Orally 2 times a day Not-Taking Carvedilol 25 MG Tablet TAKE 1 TABLET BY MOUTH TWICE A DAY WITH FOOD Not-Taking amLODIPine Besylate 2.5 MG Tablet TAKE 1 TABLET BY MOUTH EVERY DAY FOR 30 DAYS Not-Taking Ozempic (0.25 or 0.5 MG/DOSE) 2 MG/3ML Solution Pen-injector 0.25 mg Subcutaneous Once weekly Not- Taking Effexor XR 75 MG Capsule Extended Release 24 Hour 1 capsule with food Orally Once a day Not-Taking FreeStyle Lite - Device as directed use to test blood sugars Not-Taking Cymbalta 60 MG Capsule Delayed Release Particles 1 capsule Orally Twice a day Medication List reviewed and reconciled with the patient * Allergies:?Vancomycin HCl: A llergyno[Allergies Verified] Objective: * Vitals:?Temp:97.3F, Oxygen s at %:95%, HR:74/min, BP:160/100mm Hg, Wt:331.6lbs, BMI:52.54Index, Ht: 66.61 in. * Examination: ???General Examination: ?Psychiatry?Normal.?GENERAL APPEARANCE:?Well developed, well nourished, in no acute distress.?MUSCULOSKELETAL:?Normal.?HEAD:?Normocephalic, atraumatic.?EYES:?Pupils equal, round, reactive to light and accommodation, sclera non-icteric.?EARS:?Normal.?ORAL CAVITY:?Normal.?THROAT:?Clear.?OROPHARYNX?Normal.?SINUSES?Normal.?NECK/THYROID:?Neck supple, full range of motion, no cervical lymphadenopathy.?SKIN:?Warm and dry, no suspicious lesions.?HEART:?, S1, S2 normal, regular rate and rhythm.?LUNGS:?, clear to auscultation bilaterally, no wheezes, rales, rhonchi.?BREASTS:?__.?ABDOMEN:?Soft, nontender, nondistended, bowel sounds present, normal.?EXTREMITIES:?non-pitting edema lower extremities.?PERIPHERAL PULSES:?1+ posterior tibial, 1+ dorsalis pedis.?NEUROLOGIC:?Nonfocal,? appropriate?motor strength normal upper and lower extremities, sensory exam intact.?FEMALE GENITOURINARY:?__.?MALE GENITOURINARY:?__.?PODIATRIC:?Normal.?Public Works Inspector? .? Assessment: * Assessment: 1.?Essential (primary) hyper tension - I10 (Primary)???2.?Diabetes mellitus due to underlying condition with diabetic neuropathy, unspecified - E08.40???3.?Male erectile disorder - F52.21??? Rio is a 53-year-old gentleman with CHF, hypertension, hyperlipidemia, generalized anxiety disorder and DM2 here for BP check. As follows Hypertension - Blood pressure is persistently elevated despite being on 3 different blood pressure medications. He has been compliant with his meds. He is noncompliant with his diet. I will start patient on hydralazine 25 mg twice daily. Check comp. I will also refer patient to nephrology to rule out secondary causes of hypertension Type 2 diabetes - He is on week 2 of Trulicity 0.75 recently approved, He was also supposed to be on Lantuus 15 units initially but he claims that he did not receive the prescription yet per prescription log medication has been sent patient is to check with the pharmacy and keep us updated. Continue on metformin, glimepiride, and Farxiga. Diet modification has been discussed Male erectile disorder - He is currently on sildenafil 50 mg and it is still not helping him maintain an erection. He does have an established urologist however due to the fact that he owes them a balance he would like to be referred to different specialty. Refer patient to urology. I have rendered the services for this patient under direct supervision of Dr. Mock, who did not see the patient but was available upon request Plan: * Treatment: 2.?Diabetes mellitus due to underlying condition with diabetic neuropathy, unspecified?LAB: Hemoglobin [id number] ?LAB: Lipid Panel-[id number] 3.?Male erectile disorder? Referral To:Urology ?Reason:please evaluate and treat * Procedure Codes:?3077F SYST BP = 140 MM HG6 [id number] DIAST BP = 90 MM HG * Follow Up:?2 Week-BP * * Sign off status: Completed true * Provider:Michael Faith Date:?06/27/19 25 Generated for Deni braswell/Alejandro/Duane on:?07/07/2024 05:29 PM EDT History and Physical Notes * HPI (History of Present Illness) Category Sub-Category Detail Notes Category Not es Internal Medicine Rio is a 53-year-old gentleman with CHF, hypertension, hyperlipidemia, generalized anxiety disorder and DM2 here for BP check. He is anxious about child support. His blood pressure is elevated in the office today, he does take his blood pressure at home and usually it runs in the 160s. He has been compliant with his medication but he is not compliant with that diet. He denies any chest pain, shortness of breath, dyspnea on exertion. We have also started patient recently on Lantus 15 units which he claims that he did not get the prescription, prescription log description was sent successfully however he was able to get the Trulicity 0.75 and he started on it he is week 2 now. Tolerating medication fine. He denies any other active issues Examination Category Sub-Category Detail Notes Category Not es General Examination GENERAL APPEARANCE: Well dev eloped, well nourished, in no acute distress HEAD: Normocephalic, atrau matic EYES: Pupils equal, round, reactive to light and accommodation, sclera non-icteric EARS: Normal THROAT: Clear NECK/THYROID: Neck supple, full ra nge of motion, no cervical lymphadenopathy HEART: , S1, S2 normal, reg ular rate and rhythm LUNGS: , clear to auscultat ion bilaterally, no wheezes, rales, rhonchi ABDOMEN: Soft, nontender, non distended, bowel sounds present, normal NEUROLOGIC: Nonfocal, appropriat e motor strength normal upper and lower extremities, sensory exam intact SKIN: Warm and dry, no eloise picious lesions EXTREMITIES: non-pitting edema lo wer extremities PERIPHERAL PULSES: 1+ posterior tibial, 1+ dorsalis pedis BREASTS: __ MUSCULOSKELETAL: Normal MALE GENITOURINARY: __ FEMALE GENITOURINARY: __ ORAL CAVITY: Normal PODIATRIC: Normal Psychiatry Normal OROPHARYNX Normal SINUSES Normal Public Works Inspector Consultation Request Notes Referral Date Referring Provider Referred Provider Not es 06/26/2024 Priscila Faith , Persistent elevated Blood pressure despite being on 3 blood pressure meds Evaluate and treat 06/26/2024 Priscila Faith , please eval uate and treat
--- OUTSIDE RECORDS SUMMARY | 2024-07-07 17:29 | XMS_ITS ---
Author Organization [facility] Address [address] [place] [address] Care Team Providers Care Inclusion Paraeducator Name Role Phone TORRI MOCK Primary Care Provider [phone] Priscila Faith Unavailable [phone] Allergies Allergen (clinical drug ingredient) Drug/Non Drug Allergy documented on EMR Reaction Allergy Type Onset Date Status vancomycin Vancomycin HCl Unknown Drug Allergy A ctive REASON FOR VISIT [facility]; Notes scanned Medications Medication SIG (Take, Route, Frequency, Duration) Notes Start Date End Date Status Aspirin 81 MG 1 tablet Orally Once a day Active PROzac 10 MG 1 capsule Orally Onc e a day 05/23/2023 Active Multivitamin Men 50+ - as directed Orall y one tablet daily Active Warfarin Sodium 10 MG 1 tablet Orally On ce a day Active Entresto 49-51 MG 1 tablet Orally Twic e a day for 90 days 09/28/2022 Active Spironolactone 25 MG 1 tablet Orally 06/16/2024 Active Ozempic (0.25 or 0.5 MG/DOSE) 2 MG/3ML 0.25 mg Subcutaneous Once weekly for 30 days 06/08/2024 Not-Taki ng Effexor XR 75 MG 1 capsule with food Orally Once a day 04/03/2023 Not-Taking Cymbalta 60 MG 1 capsule Orally Twi ce a day for 90 days Not-Taking FreeStyle Lite - as directed use to t est blood sugars for 30 days 03/03/2020 Not-Taking Farxiga 5 MG 1 tablet Orally Once a day for 30 days 08/05/2023 Not-Taking Mirtazapine 7.5 MG 1 tablet Orally At bedtime for 30 days Not-Taking Carvedilol 25 MG TAKE 1 TABLET BY MILADY TH TWICE A DAY WITH FOOD for 90 Not-Taking hydrALAZINE HCl 25 MG 1 tablet with food Orally 2 times a day for 90 days 08/05/2023 Not-Taking amLODIPine Besylate 2.5 MG TAKE 1 TABLET BY MOUTH EVERY DAY FOR 30 DAYS for 90 Not-Taking Farxiga 10 MG 1 tablet Orally Once a day for 90 days 02/25/2024 Active Atorvastatin Calcium 40 MG 1 tablet Orally Once a day for 90 days Active Sildenafil Citrate 50 MG 1 tablet as nee ded Orally Once a day for 30 days 02/25/2024 Active Topiramate 100 MG TAKE 1 TABLET BY MILADY TH TWICE A DAY for 90 Active Carvedilol 25 MG TAKE 1 TABLET BY MILADY TH TWICE A DAY WITH FOOD Orally Twice a day for 90 days Active FreeStyle Lancets - as directed use to t est blood sugars 3 times a day for 90 days 03/03/2020 Active OneTouch Lancets check blood sugars 3 times a day DX: E08.40 for 90 days 09/23/2023 Active OneTouch Verio - check blood sugars 3 times a day DX: E08.40 for 90 days 09/23/2023 Active Lidocaine 4 % 1 application as nee ded Externally Three times a day for 30 days 11/21/2023 Active FreeStyle Lite Test - check blood sugar 2 times a day for 90 days 11/08/2023 Active Freestyle Test Strips as directed use to check blood sugars 3 times a day for 90 days 03/03/2020 Active Trulicity 0.75 MG/0.5ML as directed Subcutaneous weekly for 30 days 06/09/2024 Active Lantus 100 UNIT/ML 15units Subcutaneous once at bedtime for 30 days 06/09/2024 Active metFORMIN HCl 1000 MG TAKE 1 TABLET BY M OUTH EVERY DAY WITH A MEAL Orally twice a day for 90 days Active amLODIPine Besylate 10 MG 1 tablet Orall y Once a day for 30 days 06/09/2024 Active Blood Pressure Kit - With large adult cu ff. Dx: I10 for 30 days 11/15/2022 Active [facility] B-12 500 MCG TAKE 1 TABLET BY MILADY TH EVERY DAY FOR 30 DAYS for 90 Active amLODIPine Besylate 5 MG 1 tablet Orally Once a day for 90 days Active Vital Signs Temperature 97.6 degrees Fahrenheit 06/09/19 Oximetry 96 % 06/09/2024 Heart Rate 75 /min 06/09/2024 Blood pressure systolic 160 mm Hg 06/09/19 Blood pressure diastolic 100 mm Hg 025 Weight 324.5 lbs 06/09/2024 BMI 51.42 kg/m2 06/09/2024 Height 66.61 in 06/09/2024 Encounters Encounter Location Date Provider Diagnosis [facility] [address] [place] [address] 06/09/2024 Priscila Fuentesmaura Diabetes mellitus du e to underlying condition with diabetic neuropathy, unspecified E08.40 ; Hospital discharge follow-up Z09 ; Essential (primary) hypertension I10 ; Cerebral infarction, unspecified I63.9 ; Other pulmonary embolism without acute cor pulmonale I26.99 ; Anxiety disorder, unspecified F41.9 ; Hyperlipidemia, unspecified E78.5 and Male erectile dysfunction, unspecified N52.9 Assessments Encounter Date Diagnosis (ICD Code) Assessment Notes Treatment Notes Treatment Clinical Notes Section Notes 06/09/2024 Diabetes mellitus due to underlying condition with diabetic neuropathy, unspecified (ICD-10 - E08.40) Rio is a 53-year-old gentleman with CHF, hypertension, hyperlipidemia, generalized anxiety disorder and DM2 here for Hospital follow up. He had scrotal cellulitis, he was treated with Cefazolin. Plan is as follows: Hypertension with heart disease. -His blood pressure is running high in the office today. Cut back on sodium intake. Advised appropriate hydration, cardio exercises and weight loss. His blood pressure was running high and repeat blood pressure was still high. Increased amlodipine to 10mg. Carvedilol 25 MG BID. Hydralazine has been discontinued at the hospital. We do not have full report from the hospital to further assess the reason medication has been discontinued. We will obtain records. we will check BP in 1 week. -Check comp Cerebral infarction. -There is no residual deficits at this point. He is currently on warfarin and aspirin. He follows up with neurologist. Type II diabetes mellitus with neuropathy. - A1c increased from 7.0 to 9.3. States that he has been compliant with medications. I have increased Farxiga to 10mg. Mounjaro has been denied. We will do a trial of Trulicity. Started patient on Insulin. Increase insulin 2-3 units every 3 days. Goal of FBG below 130, post prandial below 180. He is on right medications. He has seen an machine umbrella tipper for the past year. Foot care discussed. check A1c. Hyperlipidemia. Continue Atorvastatin 40 MG at night. CHF. -He does not appear to be in volume overload. He is on right medications. Continue on Entresto and advised to weigh himself every day and avoid sodium. Anxiety disorder/depressio n. -Continue Prozac 10 MG. Continue current regimen. He is seeing a therapist once a week and he also sees psychiatry. He is not suicidal or homicidal. Polyneuropathy. -Continue Topiramate 100 MG. He uses a cane to walk. he is also given a prescription for lidocaine cream Pulmonary embolism. -He is on Warfarin and his INR is being monitored by Coumadin clinic at [facility]. TRAM. -He uses CPAP machine and no daytime sleepiness. Insomnia. -Continue trazodone 100 MG at night. General health concerns discussed with patient. I have rendered the services for this patient under direct supervision of Dr. Mock, who did not see the patient but was available upon request 06/09/2024 Hospital discharge follow-up (ICD-10 - Z09) Rio is a 53-year-old gentleman with CHF, hypertension, hyperlipidemia, generalized anxiety disorder and DM2 here for Hospital follow up. He had scrotal cellulitis, he was treated with Cefazolin. Plan is as follows: Hypertension with heart disease. -His blood pressure is running high in the office today. Cut back on sodium intake. Advised appropriate hydration, cardio exercises and weight loss. His blood pressure was running high and repeat blood pressure was still high. Increased amlodipine to 10mg. Carvedilol 25 MG BID. Hydralazine has been discontinued at the hospital. We do not have full report from the hospital to further assess the reason medication has been discontinued. We will obtain records. we will check BP in 1 week. -Check comp Cerebral infarction. -There is no residual deficits at this point. He is currently on warfarin and aspirin. He follows up with neurologist. Type II diabetes mellitus with neuropathy. - A1c increased from 7.0 to 9.3. States that he has been compliant with medications. I have increased Farxiga to 10mg. Mounjaro has been denied. We will do a trial of Trulicity. Started patient on Insulin. Increase insulin 2-3 units every 3 days. Goal of FBG below 130, post prandial below 180. He is on right medications. He has seen an machine umbrella tipper for the past year. Foot care discussed. check A1c. Hyperlipidemia. Continue Atorvastatin 40 MG at night. CHF. -He does not appear to be in volume overload. He is on right medications. Continue on Entresto and advised to weigh himself every day and avoid sodium. Anxiety disorder/depressio n. -Continue Prozac 10 MG. Continue current regimen. He is seeing a therapist once a week and he also sees psychiatry. He is not suicidal or homicidal. Polyneuropathy. -Continue Topiramate 100 MG. He uses a cane to walk. he is also given a prescription for lidocaine cream Pulmonary embolism. -He is on Warfarin and his INR is being monitored by Coumadin clinic at [facility]. TRAM. -He uses CPAP machine and no daytime sleepiness. Insomnia. -Continue trazodone 100 MG at night. General health concerns discussed with patient. I have rendered the services for this patient under direct supervision of Dr. Mock, who did not see the patient but was available upon request 06/09/2024 Essential (primary) hypertension (ICD-10 - I10) Rio is a 53-year-old gentleman with CHF, hypertension, hyperlipidemia, generalized anxiety disorder and DM2 here for Hospital follow up. He had scrotal cellulitis, he was treated with Cefazolin. Plan is as follows: Hypertension with heart disease. -His blood pressure is running high in the office today. Cut back on sodium intake. Advised appropriate hydration, cardio exercises and weight loss. His blood pressure was running high and repeat blood pressure was still high. Increased amlodipine to 10mg. Carvedilol 25 MG BID. Hydralazine has been discontinued at the hospital. We do not have full report from the hospital to further assess the reason medication has been discontinued. We will obtain records. we will check BP in 1 week. -Check comp Cerebral infarction. -There is no residual deficits at this point. He is currently on warfarin and aspirin. He follows up with neurologist. Type II diabetes mellitus with neuropathy. - A1c increased from 7.0 to 9.3. States that he has been compliant with medications. I have increased Farxiga to 10mg. Mounjaro has been denied. We will do a trial of Trulicity. Started patient on Insulin. Increase insulin 2-3 units every 3 days. Goal of FBG below 130, post prandial below 180. He is on right medications. He has seen an machine umbrella tipper for the past year. Foot care discussed. check A1c. Hyperlipidemia. Continue Atorvastatin 40 MG at night. CHF. -He does not appear to be in volume overload. He is on right medications. Continue on Entresto and advised to weigh himself every day and avoid sodium. Anxiety disorder/depressio n. -Continue Prozac 10 MG. Continue current regimen. He is seeing a therapist once a week and he also sees psychiatry. He is not suicidal or homicidal. Polyneuropathy. -Continue Topiramate 100 MG. He uses a cane to walk. he is also given a prescription for lidocaine cream Pulmonary embolism. -He is on Warfarin and his INR is being monitored by Coumadin clinic at [facility]. TRAM. -He uses CPAP machine and no daytime sleepiness. Insomnia. -Continue trazodone 100 MG at night. General health concerns discussed with patient. I have rendered the services for this patient under direct supervision of Dr. Mock, who did not see the patient but was available upon request 06/09/2024 Cerebral infarction, unspecified (ICD-10 - I63.9) Rio is a 53-year-old gentleman with CHF, hypertension, hyperlipidemia, generalized anxiety disorder and DM2 here for Hospital follow up. He had scrotal cellulitis, he was treated with Cefazolin. Plan is as follows: Hypertension with heart disease. -His blood pressure is running high in the office today. Cut back on sodium intake. Advised appropriate hydration, cardio exercises and weight loss. His blood pressure was running high and repeat blood pressure was still high. Increased amlodipine to 10mg. Carvedilol 25 MG BID. Hydralazine has been discontinued at the hospital. We do not have full report from the hospital to further assess the reason medication has been discontinued. We will obtain records. we will check BP in 1 week. -Check comp Cerebral infarction. -There is no residual deficits at this point. He is currently on warfarin and aspirin. He follows up with neurologist. Type II diabetes mellitus with neuropathy. - A1c increased from 7.0 to 9.3. States that he has been compliant with medications. I have increased Farxiga to 10mg. Mounjaro has been denied. We will do a trial of Trulicity. Started patient on Insulin. Increase insulin 2-3 units every 3 days. Goal of FBG below 130, post prandial below 180. He is on right medications. He has seen an machine umbrella tipper for the past year. Foot care discussed. check A1c. Hyperlipidemia. Continue Atorvastatin 40 MG at night. CHF. -He does not appear to be in volume overload. He is on right medications. Continue on Entresto and advised to weigh himself every day and avoid sodium. Anxiety disorder/depressio n. -Continue Prozac 10 MG. Continue current regimen. He is seeing a therapist once a week and he also sees psychiatry. He is not suicidal or homicidal. Polyneuropathy. -Continue Topiramate 100 MG. He uses a cane to walk. he is also given a prescription for lidocaine cream Pulmonary embolism. -He is on Warfarin and his INR is being monitored by Coumadin clinic at [facility]. TRAM. -He uses CPAP machine and no daytime sleepiness. Insomnia. -Continue trazodone 100 MG at night. General health concerns discussed with patient. I have rendered the services for this patient under direct supervision of Dr. Mock, who did not see the patient but was available upon request 06/09/2024 Other pulmonary embolism without acute cor pulmonale (ICD-10 - I26.99) Rio is a 53-year-old gentleman with CHF, hypertension, hyperlipidemia, generalized anxiety disorder and DM2 here for Hospital follow up. He had scrotal cellulitis, he was treated with Cefazolin. Plan is as follows: Hypertension with heart disease. -His blood pressure is running high in the office today. Cut back on sodium intake. Advised appropriate hydration, cardio exercises and weight loss. His blood pressure was running high and repeat blood pressure was still high. Increased amlodipine to 10mg. Carvedilol 25 MG BID. Hydralazine has been discontinued at the hospital. We do not have full report from the hospital to further assess the reason medication has been discontinued. We will obtain records. we will check BP in 1 week. -Check comp Cerebral infarction. -There is no residual deficits at this point. He is currently on warfarin and aspirin. He follows up with neurologist. Type II diabetes mellitus with neuropathy. - A1c increased from 7.0 to 9.3. States that he has been compliant with medications. I have increased Farxiga to 10mg. Mounjaro has been denied. We will do a trial of Trulicity. Started patient on Insulin. Increase insulin 2-3 units every 3 days. Goal of FBG below 130, post prandial below 180. He is on right medications. He has seen an machine umbrella tipper for the past year. Foot care discussed. check A1c. Hyperlipidemia. Continue Atorvastatin 40 MG at night. CHF. -He does not appear to be in volume overload. He is on right medications. Continue on Entresto and advised to weigh himself every day and avoid sodium. Anxiety disorder/depressio n. -Continue Prozac 10 MG. Continue current regimen. He is seeing a therapist once a week and he also sees psychiatry. He is not suicidal or homicidal. Polyneuropathy. -Continue Topiramate 100 MG. He uses a cane to walk. he is also given a prescription for lidocaine cream Pulmonary embolism. -He is on Warfarin and his INR is being monitored by Coumadin clinic at [facility]. TRAM. -He uses CPAP machine and no daytime sleepiness. Insomnia. -Continue trazodone 100 MG at night. General health concerns discussed with patient. I have rendered the services for this patient under direct supervision of Dr. Mock, who did not see the patient but was available upon request 06/09/2024 Anxiety disorder, unspecified (ICD-10 - F41.9) Rio is a 53-year-old gentleman with CHF, hypertension, hyperlipidemia, generalized anxiety disorder and DM2 here for Hospital follow up. He had scrotal cellulitis, he was treated with Cefazolin. Plan is as follows: Hypertension with heart disease. -His blood pressure is running high in the office today. Cut back on sodium intake. Advised appropriate hydration, cardio exercises and weight loss. His blood pressure was running high and repeat blood pressure was still high. Increased amlodipine to 10mg. Carvedilol 25 MG BID. Hydralazine has been discontinued at the hospital. We do not have full report from the hospital to further assess the reason medication has been discontinued. We will obtain records. we will check BP in 1 week. -Check comp Cerebral infarction. -There is no residual deficits at this point. He is currently on warfarin and aspirin. He follows up with neurologist. Type II diabetes mellitus with neuropathy. - A1c increased from 7.0 to 9.3. States that he has been compliant with medications. I have increased Farxiga to 10mg. Mounjaro has been denied. We will do a trial of Trulicity. Started patient on Insulin. Increase insulin 2-3 units every 3 days. Goal of FBG below 130, post prandial below 180. He is on right medications. He has seen an machine umbrella tipper for the past year. Foot care discussed. check A1c. Hyperlipidemia. Continue Atorvastatin 40 MG at night. CHF. -He does not appear to be in volume overload. He is on right medications. Continue on Entresto and advised to weigh himself every day and avoid sodium. Anxiety disorder/depressio n. -Continue Prozac 10 MG. Continue current regimen. He is seeing a therapist once a week and he also sees psychiatry. He is not suicidal or homicidal. Polyneuropathy. -Continue Topiramate 100 MG. He uses a cane to walk. he is also given a prescription for lidocaine cream Pulmonary embolism. -He is on Warfarin and his INR is being monitored by Coumadin clinic at [facility]. TRAM. -He uses CPAP machine and no daytime sleepiness. Insomnia. -Continue trazodone 100 MG at night. General health concerns discussed with patient. I have rendered the services for this patient under direct supervision of Dr. Mock, who did not see the patient but was available upon request 06/09/2024 Hyperlipidemia, unspecified (ICD-10 - E78.5) Rio is a 53-year-old gentleman with CHF, hypertension, hyperlipidemia, generalized anxiety disorder and DM2 here for Hospital follow up. He had scrotal cellulitis, he was treated with Cefazolin. Plan is as follows: Hypertension with heart disease. -His blood pressure is running high in the office today. Cut back on sodium intake. Advised appropriate hydration, cardio exercises and weight loss. His blood pressure was running high and repeat blood pressure was still high. Increased amlodipine to 10mg. Carvedilol 25 MG BID. Hydralazine has been discontinued at the hospital. We do not have full report from the hospital to further assess the reason medication has been discontinued. We will obtain records. we will check BP in 1 week. -Check comp Cerebral infarction. -There is no residual deficits at this point. He is currently on warfarin and aspirin. He follows up with neurologist. Type II diabetes mellitus with neuropathy. - A1c increased from 7.0 to 9.3. States that he has been compliant with medications. I have increased Farxiga to 10mg. Mounjaro has been denied. We will do a trial of Trulicity. Started patient on Insulin. Increase insulin 2-3 units every 3 days. Goal of FBG below 130, post prandial below 180. He is on right medications. He has seen an machine umbrella tipper for the past year. Foot care discussed. check A1c. Hyperlipidemia. Continue Atorvastatin 40 MG at night. CHF. -He does not appear to be in volume overload. He is on right medications. Continue on Entresto and advised to weigh himself every day and avoid sodium. Anxiety disorder/depressio n. -Continue Prozac 10 MG. Continue current regimen. He is seeing a therapist once a week and he also sees psychiatry. He is not suicidal or homicidal. Polyneuropathy. -Continue Topiramate 100 MG. He uses a cane to walk. he is also given a prescription for lidocaine cream Pulmonary embolism. -He is on Warfarin and his INR is being monitored by Coumadin clinic at [facility]. TRAM. -He uses CPAP machine and no daytime sleepiness. Insomnia. -Continue trazodone 100 MG at night. General health concerns discussed with patient. I have rendered the services for this patient under direct supervision of Dr. Mock, who did not see the patient but was available upon request 06/09/2024 Male erectile dysfunction, unspecified (ICD-10 - N52.9) Rio is a 53-year-old gentleman with CHF, hypertension, hyperlipidemia, generalized anxiety disorder and DM2 here for Hospital follow up. He had scrotal cellulitis, he was treated with Cefazolin. Plan is as follows: Hypertension with heart disease. -His blood pressure is running high in the office today. Cut back on sodium intake. Advised appropriate hydration, cardio exercises and weight loss. His blood pressure was running high and repeat blood pressure was still high. Increased amlodipine to 10mg. Carvedilol 25 MG BID. Hydralazine has been discontinued at the hospital. We do not have full report from the hospital to further assess the reason medication has been discontinued. We will obtain records. we will check BP in 1 week. -Check comp Cerebral infarction. -There is no residual deficits at this point. He is currently on warfarin and aspirin. He follows up with neurologist. Type II diabetes mellitus with neuropathy. - A1c increased from 7.0 to 9.3. States that he has been compliant with medications. I have increased Farxiga to 10mg. Mounjaro has been denied. We will do a trial of Trulicity. Started patient on Insulin. Increase insulin 2-3 units every 3 days. Goal of FBG below 130, post prandial below 180. He is on right medications. He has seen an machine umbrella tipper for the past year. Foot care discussed. check A1c. Hyperlipidemia. Continue Atorvastatin 40 MG at night. CHF. -He does not appear to be in volume overload. He is on right medications. Continue on Entresto and advised to weigh himself every day and avoid sodium. Anxiety disorder/depressio n. -Continue Prozac 10 MG. Continue current regimen. He is seeing a therapist once a week and he also sees psychiatry. He is not suicidal or homicidal. Polyneuropathy. -Continue Topiramate 100 MG. He uses a cane to walk. he is also given a prescription for lidocaine cream Pulmonary embolism. -He is on Warfarin and his INR is being monitored by Coumadin clinic at [facility]. TRAM. -He uses CPAP machine and no daytime sleepiness. Insomnia. -Continue trazodone 100 MG at night. General health concerns discussed with patient. I have rendered the services for this patient under direct supervision of Dr. Mock, who did not see the patient but was available upon request Plan Of Treatment Medication Medication Name Sig Start Date Stop Date Notes Trulicity 0.75 MG/0.5ML as directed Subc utaneous weekly for 30 days 06/09/2024 Lantus 100 UNIT/ML 15units Subcutaneous once at bedtime for 30 days 06/09/2024 amLODIPine Besylate 10 MG 1 tablet Orall y Once a day for 30 days 06/09/2024 Pending Test Test Name Order Date Hemoglobin [id number] 06/09/2024 Comp. Metabolic Panel [id number] 2024 Next Appt Details Follow Up: 2 Weeks-BP, Reaso n: Provider Name:Priscila garg, 07/16/2024 01:15:00 PM, [address], [place], [address], Progress Notes * Ayden BEARDOB: 3 (53 yo M)Acc No.[id number]:06/09/2024 Patient:?Ayden BEAR Provider:?Priscila Faith :1970???Age:53 Y???Sex:Male Gallo e:06/09/2024 Address:[address] [place] [address] Pcp:TORRI MOCK Subjective: * Chief Complaints: * ???[facility]; Notes scanned * HPI: ???Internal Medicine:?Rio is a 53-year-old gentleman with CHF, hypertension, hyperlipidemia, generalized anxiety disorder and DM2 here for Hospital follow up. He presented to the ER with sxs of dull chest pain that started at rest with SOB and left-sided jaw pain. His BP was noted to be elevated. ACS was ruled out with normal EKG, block but unchanged from before. Trop were elevated and then flat. CXR shows chronic mild vascular congestion. He was given ASA. He also mentioned a pain in the scrotum area, CT scan pelvis demonstrates scrotal wall thickening suggesting cellulitis, no evidence of necrotizing infection or abscess. Leukocytosis 11.6, glucose 389. He was given cefazolin. He was admitted for observation and r/o of ACS. He is here today, endorses improvement. His BP is still elevated. Recent A1c was elevated, his insurance denied GLP-1. We have discussed resuming back on Insulin along with dietary changes. He denies any other active issues, He is physically active as much as possible. He denies any other active issues or concerns. * ROS:?General/Constitutional:?Overall health?Good.?Change in appetite?denies.?Chills?denies.?Fever?denies.?Night sweats?denies.?Sleep disturbance?denies.?Weight [...] on urination?denies.?difficulty urinating?denies.?discharge?denies.?dysuria?denies.? * Medical History:? * Medications:?TakingSpironola ctone 25 MG Tablet 1 tablet Orally PROzac [...] BY MOUTH EVERY DAY FOR 30 DAYS amLODIPine Besylate 5 MG Tablet 1 tablet Orally Once a day metFORMIN HCl 1000 MG Tablet TAKE 1 [...] TABLET BY MOUTH TWICE A DAY Taking Spironolactone 25 MG Tablet 1 tablet [...] MOUTH EVERY DAY FOR 30 DAYS Taking amLODIPine Besylate 5 MG Tablet 1 tablet Orally Once a day Taking metFORMIN HCl 1000 MG Tablet TAKE [...] 1 TABLET BY MOUTH TWICE A DAY Not-TakingMirtazapine 7.5 MG Tablet 1 tablet Orally At [...] Particles 1 capsule Orally Twice a day Not-Taking Mirtazapine 7.5 MG Tablet 1 tablet Orally At bedtime Not-Taking Farxiga 5 MG Tablet 1 tablet Orally [...] Solution Pen-injector 0.25 mg Subcutaneous Once weekly Not-Taking Effexor XR 75 MG Capsule Extended Release 24 Hour 1 capsule with food Orally Once a day Not-Taking FreeStyle Lite - Device as directed use to test blood sugars Not- Taking Cymbalta 60 MG Capsule Delayed Release Particles 1 capsule Orally Twice a day * Allergies:?Vancomycin HCl: A llergyno[Allergies Verified] Objective: * Vitals:?Temp:97.6F, Oxygen s at %:96%, HR:75/min, BP:160/100mm Hg, Wt:324.5lbs, BMI:51.42Index, Ht: 66.61 in. * Examination: ???General Examination: [...] and lower extremities, sensory exam intact.?FEMALE GENITOURINARY:?__.?MALE GENITOURINARY:?__.?PODIATRIC:?Normal.?Automotive Lube Technician? .? Assessment: * Assessment: 1.?Diabetes mellitus due to underlying condition with diabetic neuropathy, unspecified - E08.40 (Primary)???2.?Hospital discharge follow-up - Z09???3.?Essential (primary) hypertension - I10???4.?Cerebral infarction, unspecified - I63.9???5.?Other pulmonary embolism without acute cor pulmonale - I26.99???6.?Anxiety disorder, unspecified - F41.9???7.?Hyperlipidemia, unspecified - E78.5???8.?Male erectile dysfunction, unspecified - N52.9??? Rio is a 53-year-old gentl eman with CHF, hypertension, hyperlipidemia, generalized anxiety disorder and DM2 here for Hospital follow up. He had scrotal cellulitis, he was treated with Cefazolin. Plan is as follows: Hypertension with heart disease. -His blood pressure is running high in the office today. Cut back on sodium intake. Advised appropriate hydration, cardio exercises and weight loss. His blood pressure was running high and repeat blood pressure was still high. Increased amlodipine to 10mg. Carvedilol 25 MG BID. Hydralazine has been discontinued at the hospital. We do not have full report from the hospital to further assess the reason medication has been discontinued. We will obtain records. we will check BP in 1 week. -Check comp Cerebral infarction. -There is no residual deficits at this point. He is currently on warfarin and aspirin. He follows up with neurologist. Type II diabetes mellitus with neuropathy. - A1c increased from 7.0 to 9.3. States that he has been compliant with medications. I have increased Farxiga to 10mg. Mounjaro has been denied. We will do a trial of Trulicity. Started patient on Insulin. Increase insulin 2-3 units every 3 days.?Goal of FBG below 130, post prandial below 180.??He is on right medications. He has seen an machine umbrella tipper for the past year. Foot care discussed. check A1c. Hyperlipidemia. Continue Atorvastatin 40 MG at night. CHF. -He does not appear to be in volume overload. He is on right medications. Continue on Entresto and advised to weigh himself every day and avoid sodium. Anxiety disorder/depression. -Continue Prozac 10 MG. Continue current regimen. He is seeing a therapist once a week and he also sees psychiatry. He is not suicidal or homicidal. Polyneuropathy. -Continue Topiramate 100 MG. He uses a cane to walk. he is also given a prescription for lidocaine cream Pulmonary embolism. -He is on Warfarin and his INR is being monitored by Coumadin clinic at [facility]. TRAM. -He uses CPAP machine and no daytime sleepiness. Insomnia. -Continue trazodone 100 MG at night. General health concerns discussed with patient. I have rendered the services for this patient under direct supervision of Dr. Mock, who did not see the patient but was available upon request Plan: * Treatment: 2.?Essential (primary) hyper tension? Start amLODIPine Besylate Tablet, 10 MG, 1 tablet, Orally, Once a day, 30 days, 30, Refills 3.?? * Procedure Codes:?3077F SYST BP = 140 MM HG6 [id number] DIAST BP = 90 MM [id number] (COVID_19) TRANS CARE MGMT 7 DAY DISCH * Follow Up:?2 Weeks-BP * * Sign off status: Completed true * Provider:?Priscila Faith Date:?06/09/19 25 Generated for Deni braswell/Alejandro/Rosendoitting on:?07/07/2024 05:29 PM EDT History and Physical Notes * HPI (History of Present Illness) Category Sub-Category Detail Notes Category Not es Internal Medicine Rio is a 53-year-old gentleman with CHF, hypertension, hyperlipidemia, generalized anxiety disorder and DM2 here for Hospital follow up. He presented to the ER with sxs of dull chest pain that started at rest with SOB and left-sided jaw pain. His BP was noted to be elevated. ACS was ruled out with normal EKG, block but unchanged from before. Trop were elevated and then flat. CXR shows chronic mild vascular congestion. He was given ASA. He also mentioned a pain in the scrotum area, CT scan pelvis demonstrates scrotal wall thickening suggesting cellulitis, no evidence of necrotizing infection or abscess. Leukocytosis 11.6, glucose 389. He was given cefazolin. He was admitted for observation and r/o of ACS. He is here today, endorses improvement. His BP is still elevated. Recent A1c was elevated, his insurance denied GLP-1. We have discussed resuming back on Insulin along with dietary changes. He denies any other active issues, He is physically active as much as possible. He denies any other active issues or concerns. Examination Category Sub-Category Detail Notes Category Not [...] Normal Psychiatry Normal OROPHARYNX Normal SINUSES Normal Automotive Lube Technician
--- OUTSIDE RECORDS SUMMARY | 2024-07-07 17:29 | XMS_ITS | Encounter Summary ---
Author Organization [facility] Address [address] [place] [address] Care Team Providers Care Optical Element Coater Name Role Phone Trumanjosemanuel Ghotra A MD Primary Care Provider [phone] Reason for Visit * Reason Comments DM Foot Care Controlled type 2 di abetes with neuropathy (HCC)Tinea pedis of both feetVenous insufficiencyHammertoes of both feetDermatophytosis, nail Encounter Details Date Type Department Care Team (Late st Contact Info) Description 06/15/2024 9:00 AM EST Office Visit Orthopedic Surgery - [place] [address] [phone] Yunier Saldivar, DPJohn [address] [address] Controlled type 2 diabetes with neuropathy (CMS/HCC) (Primary Dx); Venous insufficiency; Hammertoes of both feet; Dermatophytosis, nail Social History Tobacco Use Types Packs/Day Years Used Date Smoking Tobacco: Never Smokeless Tobacco: Never Alcohol Use Standard Drinks/Week Comments Not Currently 0 (1 standard drink = 0.6 oz pur e alcohol) Sex and Gender Information Value Date Recorded Sex Assigned at Not on file Legal Sex Male 8:40 PM EST Gender Identity Not on file Sexual Orientation Not on file documented as of this encounter Last Filed Vital Signs Vital Sign Reading Time Taken Comments Blood Pressure - - Pulse - - Temperature - - Respiratory Rate - - Oxygen Saturation - - Inhaled Oxygen Concentration - - Weight 137 kg (303 lb) 06/15/2024 8:56 AM EST Height 167.6 cm (5' 5.98 ) 06/15/2024 8:[address] Body Mass Index 48.93 06/15/2024 8:56 AM EST documented in this encounter Progress Notes * Yunier Saldivar DPM - 06/15/2024 9:00 AM EST Referring MD: vaishali Last PCP visit: 03/03/2024 IDENTIFIER: @TITLE@ Chema is a 53 y.o. year old male who presents for consultation. CC: Bilateral foot pain HPI: 53-year-old male returns office for chief complaint of bilateral foot pain. Patient notes he continues to get sharp shooting pain and has lost his balance sometimes time. Patient notes that his nailscontinue to be thickened and misshapened causing pain in close toed shoes. Patient is not wearing supportive shoes at this time. Patient is here for evaluation treatment Patient's FBS this AM 176 Recent A1C is %. 6.1 ROS: GENERAL: Pt denies nausea, fever, vomiting, chills, or shortness of breath. Pt in NAD. CARDIOLOGY: pt denies chest pain, palpitations LUNGS: pt denies shortness of breath MUSCULOSKELETAL: See HPI, otherwise no joint pain or swelling, back pain, or muscle pain. SKIN: see HPI, otherwise no lesions, rash or itching NEURO: No persistent headache, weakness or numbness The remainder of the review of systems is noncontributory PAST MEDICAL HISTORY: Patient Active Problem List Diagnosis CHF (congestive heart failure) (CMS/HCC) Hypertension Cerebrovascular accident (CMS/HCC) Orthostatic hypotension Cardiomyopathy (CMS/HCC) HLD (hyperlipidemia) Major depression in remission ([facility]) Asthma Dizziness SOCIAL HISTORY: Social History Tobacco Use Smoking status: Never Smokeless tobacco: Never Substance Use Topics Alcohol use: Not Currently ACTIVE MEDICATIONS: Outpatient Medications Marked as Taking for the 06/15/24 encounter (Office Visit) with Yunier Saldivar DPM Medication Sig Dispense Refill atorvastatin (LIPITOR) 40 mg tablet carvediloL (COREG) 25 mg tablet Take 1 tablet (25 mg total) by mouth 2 (two) times a day with meals. hydrALAZINE (APRESOLINE) 25 mg tablet Take 1 tablet (25 mg total) by mouth 1 (one) time each day. metFORMIN (GLUCOPHAGE) 1,000 mg tablet Take by mouth 2 Times Daily multivitamin (DAILY-WENCESLAO ORAL) Take 1 tablet by mouth sacubitril/valsartan (ENTRESTO ORAL) Take 1 tablet by mouth 2 (two) times a day. topiramate (TOPAMAX) 100 mg tablet Take 1 tablet (100 mg total) by mouth 2 (two) times a day. venlafaxine XR (EFFEXOR-XR) 75 mg 24 hr capsule Take 1 capsule (75 mg total) by mouth 1 (one) time each day. Do not crush or chew. warfarin (COUMADIN) 5 mg tablet Take 1 Tablet by mouth See Admin Instructions. May cause heavy bleeding. Take at same time every day. Do not change dietary habits [DISCONTINUED] spironolactone (ALDACTONE) 25 mg tablet Take 1 tablet (25 mg total) by mouth 1 (one)time each day. ALLERGIES: @ALL@ PHYSICAL EXAM: Height 1.676 m (65.98 ), weight 137 kg (303 lb). PODIATRIC EXAMINATION: GENERAL: Patient appears well nourished, with NAD. VASCULAR: Dorsalis pedis pulses are 1/4 bilaterally and Posterior tibial pulses are 0/4 bilaterally. Capillary filling time within normal limits the digits. No pallor on elevation or rubor on dependency. No hair growth. Varicosities throughout the lower extremities with +2 pitting edema and hyperpigmentation throughout the lower extremities NEUROLOGICAL: Sharp/dull sensation diminished, protective sensation diminished on [place]. Multipleperipheral neuropathies bilateral lower extremity. ORTHOPEDIC: Good muscle strength 5/5 of all flexors and extensors. Dorsi flexion of ankle ,10 degrees, plantar flexion WNL. No muscle atrophy. Continued decreased range of motion at the first MPJ with increased medial eminence. Multiple rigidly contracted digits 2 through 5 at the PIPJ. DERMATOLOGICAL:.Nails are elongated dystrophic discolored x 10 with subungual debris BIOMECHANICS: STJ ROM wnl, MTJ ROM wnl, 1st MPJ ROM decreased IMPRESSION: 1. Controlled type 2 diabetes with neuropathy (CMS/HCC) 2. Venous insufficiency 3. Hammertoes of both feet 4. Dermatophytosis, nail PLAN: Pt was seen and examined, history reviewed. Patient instructed to keep tight glucose control in order to decrease the sharp shooting pain in his feet bilaterally Patient understands that he has decreased pulses to the bilateral lower extremity and has a historyof vascular problems. Patient instructed to continue with current scheduled vascular visits for consistent evaluation of inflow disease Patient continues to suffer with neuropathic symptoms bilateral feet. Patient was educated about sugar plays a role in increasing his diabetic neuropathy. Patient understands that the only way to control this is by controlling sugar level. Patient was encouraged to start using a menthol type topical in order to limit the symptoms that will not correct the underlying pathology Nail debridement performed to nails 1-5 bilateral as nails were described to be causing pain and difficulty for walking while in shoegear at their previous length. They were debrided in thickness andlength, with no incident. Clinical evidence of mycosis is documented which required active treatment. Patient expressed immediate relief. Patient is to RTC in 9 weeks Yunier Saldivar DPM documented in this encounter Plan of Treatment Upcoming Encounters Date Type Department Care Team (Late st Contact Info) Description 08/10/2024 1:10 PM EDT Office Visit [facility] [address] [place] [address] [address] [place] [address] Clint Alfredo NP [address] [place] [address] [address] [facility] [address] [place] [address] 08/17/2024 9:00 AM EDT Office Visit Orthopedic Surgery - [place] [address] [phone] Yunier Saldivar DPM [address] [address] documented as of this encounter Visit Diagnoses Diagnosis Controlled type 2 diabetes with neuropathy (CMS/HCC)- Primary Type II or unspecified type diabetes mellitus with neurological manifestations, not stated as uncontrolled Venous insufficiency Unspecified venous (peripheral) insufficiency Hammertoes of both feet Dermatophytosis, nail Dermatophytosis of nail documented in this encounter Care Teams Optical Element Coater Relationship Specialty Start Date End Date Brandin Valdez MD [address] [place] [phone] PCP - General Internal Medicine 03/27/12 documented as of this encounter
--- OUTSIDE RECORDS SUMMARY | 2024-07-07 17:29 | XMS_ITS | Clinical Summary ---
Author Organization [facility] Address [address] [place] [address] Phone Care Team Providers Care Demurrage Clerk Name Role Phone Brandin Valdez MD Primary Care Provider [phone] Allergies Active Allergy Reactions Criticality Noted Date Comments Vancomycin Rash Low 12/09/2017 Medications atorvastatin (LIPITOR) 40 MG tablet Take 40 mg by mouth 1 (one) time each day Active Enoxaparin Sodium 120 MG/0.8ML solution prefilled syringe Inject as directed Active escitalopram (LEXAPRO) 10 MG tablet Take 10 mg by mouth 1 (one) time each day Active fluticasone (VERAMYST) 27.5 MCG/SPRAY nasal spray Administer 2 sprays into each nostril 1 (one) time each day Active hydrOXYzine (ATARAX) 25 MG tablet Take 25 mg by mouth 3 (three) times a day if needed for itching Active insulin aspart protamine-insul in aspart (NovoLOG 70/30) (70-30) 100 UNIT/ML injection Inject under the skin 2 (two) times a day before meals Active insulin glargine (LANTUS) 100 UNIT/ML injection Inject under the skin every night Active loperamide (IMODIUM) 2 MG capsule Take 2 mg by mouth 4 (four) times a day if needed for diarrhea Active LORazepam (ATIVAN) 0.5 MG tablet Take 0.5 mg by mouth every 6 (six) hours if needed for anxiety Active losartan (COZAAR) 25 MG tablet Take 25 mg by mouth 1 (one) time each day Active metFORMIN (GLUCOPHAGE) 1000 MG tablet Take 1,000 mg by mouth in the morning and 1,000 mg in the evening. Take with meals. Active Multiple Vitamins-Minera ls (multivitamin with minerals) tablet Take 1 tablet by mouth 1 (one) time each day Active topiramate (TOPAMAX) 100 MG tablet Take 100 mg by mouth in the morning and 100 mg in the evening. Active warfarin (COUMADIN) 3 MG tablet Take 3 mg by mouth 1 (one) time each day Take as directed per After Visit Summary. Active Active Problems Problem Noted Date Diagnosed Date Essential hypertension 10/24/2022 Acute nontraumatic kidney injury 03/19/2022 Hypotension 03/19/2022 Severe obesity 03/19/2022 Tubular adenoma of colon 01/18/2022 Overview (10/24/2022): repeat screening colonoscopy in 2028 Pulmonary embolism 12/09/2017 Immunizations Name Administration Dates Next Due Fanta SARS-COV-2 11/02/2020 Moderna SARS-COV-2 03/11/2021 Social History Tobacco Use Types Packs/Day Years Used Date Smoking Tobacco: Never Assessed Sex and Gender Information Value Date Recorded Sex Assigned at Not on file Legal Sex Male 4:41 PM EST Gender Identity Not on file Sexual Orientation Not on file Plan of Treatment Health Maintenance Due Date Last Done Comments Pneumococcal Vaccine: Pediat rics (0 to 5 Years) and At-Risk Patients (6 to 64 Years) (1 of 2 - PCV) 1978 Hepatitis B Vaccine (1 of 3 - 19+ 3-dose series) 12/10 Colorectal Cancer Screening: Annual FOBT 2021 Colorectal Cancer Screening: Colonoscopy 2021 Colorectal Cancer Screening: Sigmoidoscopy 2021 Influenza Vaccine (#1) 2023 Insurance [place] Care Teams Demurrage Clerk Relationship Specialty Start Date End Date Brandin Valdez MD [address] [place] [address] PCP - General Internal Medicine 04/25/22
--- OUTSIDE RECORDS SUMMARY | 2024-07-07 17:29 | XMS_ITS ---
Author Organization [facility] Address [address] [place] [address] [address] [place] [address] Care Team Providers Care Bonded Strand Operator Name Role Phone TORRI MOCK Primary Care Provider REASON FOR VISIT Kidney Referral Encounters Encounter Location Date Provider Diagnosis [facility] [address] [facility] [address] [place] [address] 06/26/2024 TORRI MOCK Plan Of Treatment Next Appt Details Provider Name:Priscila garg, 07/16/2024 01:15:00 PM, [address] [facility] [address], [place], [address], Progress Notes * Ayden TAMAYODOB: 3 (53 yo M)Acc No.[id number]:06/26/2024 Patient:?Ayden TAMAYO :1970???Age:53 Y???Sex:Male Address:[address] [place] [address] , [place] [address] * true * Date:? Generated for Printi french/Alejandro/eTransmitting on:?07/07/2024 05:28 PM EDT
--- OUTSIDE RECORDS SUMMARY | 2024-07-07 17:29 | XMS_ITS | Data Portability ---
Author Organization [facility]Y [facility], [address] Address [address] [place] [address] Care Team Providers Care Quality Control Engineer Name Role Phone TORRI MOCK Primary Care Provider Assessment No assessment recorded. Plan of Treatment Reminders Order Date Submit Date Provider Last Modified By Organization Details Last Modified Time Details Appointments None recorded. Lab None recorded. Referral emergency medicine referral - patient worried about getting blood clots as his coumadin was stopped due to dental work. now presented for SOB. have no chest ray available today at the facility . Need further evaluation and treatment. 2022 023 acardinal 3 [facility], [address] [place], [address], 10:47:54 Procedures None recorded. Surgeries None recorded. Imaging None recorded. Medication Orders None recorded. Patient TargetsNo targets recorded. Patient Instructions Encounter Date Encounter Id Patient Instructions Last Modified By Organization Details Last Modified Time 05/11/2022 [id number] cough: care instructions [email or web address] Not available 05/11/2022 10:40:15 Call 911 or proceed to nearest Emergency Department if you develop new or worsening shortness of breath, chest pain, or other symptoms. You should follow up with your PCP or [facility] in 6-10 days, if your symptoms are not improving. You should follow up sooner if your symptoms worsen significantly or if you develop new symptoms that concern you. [email or web address] Not available 05/11/2022 10:40:14 Reason for Referral Emergency Medicine Referral for Dyspnea on exertion patient worried about getting blood clots as his coumadin was stopped due to dental work. now presen patient worried about getting blood clots as his coumadin was stopped due to dental work. now presented for SOB. have no chest ray available today at the facility . Need further evaluation and treatment. Referring Physician: Shimon King, Urgent Care, Encounter Date: 05/11/2022 Problems Name Problem SNOMED Code Status Onset Date Resolution Date Notes Provider Name and Address Organization Details Recorded Time Hypertensive disorder 47466454 Active KARTHIK BURT-RIVE RA null, PA - [facility] 3 10:17:52 Diabetes mellitus 82098740 Active KARTHIK BURT-RIVE RA null, PA - [facility] 3 10:18:01 Neuropathy 366914163 Active KARTHIK BURT-RIVE RA null, PA - [facility] 3 10:18:10 Depressive disorder 63034905 Active KARTHIK BURT-RIVE RA null, PA - [facility] 3 10:18:18 Anxiety 09654224 Active KARTHIK BURT-RIVE RA null, PA - [facility] 3 10:18:26 Pulmonary embolism 68874641 Active KARTHIK BURT-RIVE RA null, PA - [facility] 3 10:19:52 Problem Notes None recorded. Procedures Surgical History Date Name Laterality Status Provider Name and Address Organization Details Recorded Time cholecystectomy completed KARTHIK BURT-WADE PA - [facility] 05/11/2022 10:20:18 Imaging Results None recorded. Procedure Notes None recorded. Medical Equipment None Reported. Allergies Allergen ID Allergen Name Allergen Category Reaction Reaction Severity Criticality Documentation Date Start Date Code Code System Note Provider Name and Address Organization Details Recorded Time 361371 vancomyci n medicatio n hives Not available Not available 05/11/2022 94011 RxNorm KARTHIK BURT-RIVE RA null, [place] - [facility] 3 10:15:43 Medications Name Sig Start Date Stop Date Status Note LastModified by Organization Details LastModified Time losartan 50 mg tablet 1 TABLET BY MOUTH 2 TIMES A DAY 90 DAYS active Not Available Not Available No t Available amoxicillin 500 mg capsule TAKE 1 CAPSULE BY MOUTH EVERY 8 HOURS X4 DAYS active Not Available Not Available No t Available furosemide 40 mg tablet TAKE 1 TABLET BY MOUTH EVERY DAY 05/11 completed Not Available Not Available Not Available atorvastati n 40 mg tablet TAKE 1 TABLET BY MOUTH EVERY DAY FOR 90 DAYS active Not Available Not Available No t Available carvedilol 25 mg tablet TAKE 1 TABLET BY MOUTH TWO TIMES A DAY active Not Available Not Available No t Available acetaminoph en 325 mg tablet TAKE 1 OR 2 TABLETS BY MOUTH EVERY 4 TO 6 HOURS NEEDED FOR PAIN active Not Available Not Available No t Available carvedilol 6.25 mg tablet TAKE 1 TABLET BY MOUTH TWICE A DAY WITH FOOD active Not Available Not Available No t Available ammonium lactate 12 % lotion APPLY TO SOLES OF FEET DAILY. AT NIGHT WEAR SOCKS TO BED active Not Available Not Available No t Available loperamide 2 mg capsule TAKE 1 CAPSULE BY MOUTH FOUR TIMES A DAY NEEDED FOR 14 DAYS 05/11 completed Not Available Not Available Not Available clonazepam 0.5 mg tablet TAKE 1 TABLET BY MOUTH AT BEDTIME DAILY FOR 10 DAYS active Not Available Not Available No t Available clonazepam 1 mg tablet TAKE 1 TABLET BY MOUTH AT BEDTIME FOR 10 DAYS active Not Available Not Available No t Available warfarin 3 mg tablet TAKE 3 TABLETS BY MOUTH EVERY DAY. DOSE TO BE ADJUSTED RECOMMEND ED BY [facility]TICOU [facility]ATION CLINIC active Not Available Not Available No t Available ciclopirox 8 % topical solution APPLY DAILY TO NAILS CLEAN MEDICATIO N RESIDUE OFF OF NAIL PLATE EVERY 3 DAYS WITH RUBBING ALCOHOL active Not Available Not Available No t Available lorazepam 0.5 mg tablet TAKE 1 TABLET BY MOUTH EVERY DAY AT BEDTIME NEEDED FOR 14 DAYS active Not Available Not Available No t Available amlodipine 10 mg tablet TAKE 1 TABLET BY MOUTH EVERY DAY active Not Available Not Available No t Available cephalexin 500 mg capsule TAKE 1 CAPSULE BY MOUTH EVERY 6 HOURS 05/11 completed Not Available Not Available Not Available hydralazine 100 mg tablet TAKE 1 TABLET BY MOUTH THREE TIMES A DAY WITH FOOD FOR 90 DAYS 05/11 completed Not Available Not Available Not Available metformin 1,000 mg tablet TAKE 1 TABLET BY MOUTH EVERY DAY WITH A MEAL active Not Available Not Available No t Available warfarin 5 mg tablet TAKE 1 TO 3 TABLETS BY MOUTH DAILY DIRECTED BY THE COUMADIN CLINIC active Not Available Not Available No t Available losartan 25 mg tablet TAKE 2 TABLETS BY MOUTH EVERY DAY active Not Available Not Available No t Available bupropion HCl 75 mg tablet TAKE 1 TABLET BY MOUTH EVERY DAY 05/11 completed Not Available Not Available Not Available hydroxyzine HCl 25 mg tablet TAKE 1 TABLET BY MOUTH EVERY DAY AT BEDTIME NEEDED FOR 30 DAYS 05/11 completed Not Available Not Available Not Available warfarin 1 mg tablet TAKE 1 TABLET BY MOUTH EVERY DAY FOR 30 DAYS active Not Available Not Available No t Available polyethylen e glycol 3350 17 gram/dose oral powder MIX 17 GRAMS WITH WATER AND DRINK ONCE OR TWICE DAILY NEEDED FOR CONSTIPAT ION IF YOU DO NOT HAVE A BOWEL MOVEMENT FOR 3 DAYS 05/11 completed Not Available Not Available Not Available lisinopril 40 mg tablet TAKE 1 TABLET BY MOUTH EVERY DAY 05/11 completed Not Available Not Available Not Available topiramate 100 mg tablet TAKE 1 TABLET BY MOUTH TWICE A DAY FOR 90 DAYS active Not Available Not Available No t Available fluticasone propionate 50 mcg/actuati on nasal spray,suspe nsion SPRAY 1 SPRAY INTO EACH NOSTRIL EVERY DAY FOR 30 DAYS 05/11 completed Not Available Not Available Not Available clotrimazol e 1 % topical cream APPLY TO SKIN DAILY FOR 6 WEEKS 05/11 completed Not Available Not Available Not Available hydroxyzine pamoate 25 mg capsule TAKE 1 CAPSULE BY MOUTH EVERY 6 HOURS 05/11 completed Not Available Not Available Not Available enoxaparin 120 mg/0.8 mL subcutaneou s syringe INJECT THE CONTENTS OF 1 SYRINGE SUBCUTANE OUSLY EVERY 12 HOURS FOR 14 DAYS active Not Available Not Available No t Available escitalopra m 10 mg tablet TAKE 1 TABLET BY MOUTH EVERY DAY FOR 30 DAYS active Not Available Not Available No t Available insulin aspart (U-100) 100 unit/mL (3 mL) subcutaneou s pen INJECT MAX OF 14 UNITS SUBCUTANE OUSLY PER SLIDING SCALE THREE TIMES A DAY active Not Available Not Available No t Available escitalopra m 5 mg tablet TAKE 1 TABLET BY MOUTH EVERY DAY FOR 30 DAYS active Not Available Not Available No t Available topiramate 50 mg tablet TAKE 1 TABLET BY MOUTH TWICE A DAY active Not Available Not Available No t Available Lantus Solostar U-100 Insulin 100 unit/mL (3 mL) subcutaneou s pen INJECT 25 UNITS SUBCUTANE OUSLY DAILY active Not Available Not Available No t Available Eliquis 5 mg tablet TAKE 1 TABLET BY MOUTH TWICE A DAY 01/27 /2023 completed Not Available Not Available Not Available Vitals Date Recorded Body height Body mass index (BMI) Body weight Pain severity - 0-10 verbal numeric rating [Score] - Reported Respiratory rate Oxygen saturation Oxygen saturation in Arterial blood by Pulse oximetry Heart rate Body temperature Systolic blood pressure Diastolic blood pressure Provider Name and Address Organization Details Last Updated DateTime 3 167.64 cm 36.3 kg/m2 770330. 28 g 0 18 /min 98 % 98 % 74 /min 98 [degF] 140 mm[Hg] 98 mm[Hg] KARTHIK [facility] 10:23:25 Social History Question Answer Notes LastModified by Organizat ion Details LastModified Time Tobacco Smoking Status Never Smoker TERRY Nieves [facility] 05/11/2022 10:20:25 What Is Your Level Of Alcohol Consumption? None Information not available 05/11/2022 Have You Had Direct Contact, Or Contact During Intimacy, With Monkeypox Rash, Scabs, Or Body Fluids From A Person With Monkeypox? No Information not available 05/11/2022 Do You Use Any Illicit Or Recreational Drugs? No Information not available 05/11/2022 Have You Recently Traveled Abroad? No Information not available 05/11/2022 Do You Or Have You Ever Used Any Other Forms Of Tobacco Or Nicotine? No Information not available 05/11/2022 Sex: Unknown Functional Status None recorded. Mental Status None recorded. Family History Relationship Description Onset Age of this Age Resolved Age Notes LastModified by Organization Details LastModified Time Mother Hypertensive disorder Not available 10:18:40 Sister Pulmonary embolism Not available 10:19:37 Medical History No medical history recorded. Immunizations Vaccine Type Date Status Note Provider Nam e and Address Organization Details Recorded Time COVID-19, mRNA, LNP-S, PF, 100 mcg/0.5mL dose or 50 mcg/0.25mL dose 03/11/2021 completed TERRY [facility] 05/11/2022 10:15:17 COVID-19 vaccine, vector-nr, rS-Ad26, PF, 0.5 mL 11/02/2020 completed TERRY Nieves [facility] 05/11/2022 10:15:17 Past Encounters Encounter ID Performer Location Encounter Start Date Encounter Closed Date Diagnosis/Indication Diagnosis SNOMED-CT Code Diagnosis ICD10 Code Diagnosis Note [id number] [address] [place] [address] 01/20/2022 14:45:34 01/20/2022 20:10:37 [id number] [place] [address] [place] [address] 05/11/2022 09:28:36 05/11/2022 10:47:54 Dyspnea on exertion 75008799 R06.09 Health Concerns Section Related Observation LastModified by Organization Detai ls LastModified Time None Recorded Concern Status LastModified by Organization Details LastModified Time None Recorded Advance Directives Directive None Recorded Payers Encounter Date Sequence Insurance Name Policy Number Policy Henriquez Covered Member ID Henriquez Member ID Guarantor Name 01/20/2022 1 [facility] [employer] - TOGETHER WITH [employer] (MEDICAID REPLACEMENT - HMO) [id number] Ayden Bear [id number] Ayden Bear 05/11/2022 1 [facility] [employer] - TOGET[employer] (MEDICAID REPLACEMENT - HMO) [id number] Ayden Bear [id number] Ayden Bear Notes Date Note Type Note Provider Name and Address Organization Details Recorded Time 05/11/2022 text/html CoughReported bypatient.Notes:sharon singh came in stating he is getting SOB and need d dimer test to rule out any blood clot . his coumadin was stop temporarily due to dental work and now patient is worried about getting clots. Shimon King NP [address] [place], [address], [place] - [facility] 05/11/2022 10:49:17
--- OUTSIDE RECORDS SUMMARY | 2024-07-07 17:29 | XMS_ITS | Clinical Summary ---
Author Organization [address] [facility] Address [address] [place] [address] Phone Care Team Providers Care Ambulatory Technologist Name Role Phone Brandin Valdez MD Primary Care Provider [phone] Allergies Active Allergy Reactions Criticality Noted Date Comments Vancomycin Rash Low 09/17/2014 Medications atorvastatin (LIPITOR) 40 mg tablet 3 Active topiramate (TOPAMAX) 100 mg tablet Take 1 tablet (100 mg total) by mouth 2 (two) times a day. 3 Active sacubitril/vals keyanna (ENTRESTO ORAL) Take 1 tablet by mouth 2 (two) times a day. Active hydrALAZINE (APRESOLINE) 25 mg tablet Take 1 tablet (25 mg total) by mouth 1 (one) time each day. Active venlafaxine XR (EFFEXOR-XR) 75 mg 24 hr capsule Take 1 capsule (75 mg total) by mouth 1 (one) time each day. Do not crush or chew. Active warfarin (COUMADIN) 5 mg tablet Take 1 Tablet by mouth See Admin Instruction s. May cause heavy bleeding. Take at same time every day. Do not change dietary habits Active carvediloL (COREG) 25 mg tablet Take 1 tablet (25 mg total) by mouth 2 (two) times a day with meals. Active multivitamin (DAILY-WENCESLAO ORAL) Take 1 tablet by mouth Active metFORMIN (GLUCOPHAGE) 1,000 mg tablet Take by mouth 2 Times Daily Active spironolactone (ALDACTONE) 25 mg tabletIndicatio ns:Cardiomyopat hy, unspecified,Per sebastian history of other endocrine, nutritional and metabolic disease TAKE 1 TABLET BY MOUTH EVERY DAY 90 tablet 1 Active spironolactone (ALDACTONE) 25 mg tablet Take 1 tablet (25 mg total) by mouth 1 (one) time each day. 025 Discontinued Active Problems Problem Noted Date Diagnosed Date CHF (congestive heart failure) 03/01/2024 Hypertension 03/01/2024 Cerebrovascular accident 03/01/2024 Orthostatic hypotension 03/01/2024 Cardiomyopathy 03/01/2024 HLD (hyperlipidemia) 03/01/2024 Major depression in remission 03/01/2024 Asthma 03/01/2024 Dizziness 03/01/2024 Encounters Date Type Department Care Team Description 06/15/2024 9:00 AM EST Office Visit Orthopedic Surgery - [address] [address] Yunier Saldivar, HARMONY Controlled type 2 diabetes with neuropathy (CMS/HCC) (Primary Dx); Venous insufficiency; Hammertoes of both feet; Dermatophytosis, nail from Last 3 Months Immunizations Name Administration Dates Next Due Moderna SARS-CoV-2 COVID-19, mRNA, LNP-S, preservative free 03/11/2021 Surgical History Surgery Date Site/Laterality Comments CHOLECYSTECTOMY PROCEDURE: HISTORICAL CHOLECYSTECTOMY Medical History Medical History Date Comments CHF (congestive heart failure) (CMS/HCC) DX:CHF (congestive heart failure) (HCC) Covid-19 DX:COVID-19 H/O insulin dependent diabetes mellitus DX:H/O insulin dependent diabetes mellitus Hypertension DX:Hypertension Asthma DX:Asthma History of pulmonary embolus (PE) DX:History of pulmonary embolus (PE) History of DVT (deep vein thrombosis) DX:History of DVT (deep vein thrombosis) H/O transient cerebral ischemia DX:H/O transient cerebral ischemia HLD (hyperlipidemia) DX:HLD (hyp erlipidemia) Type 2 diabetes mellitus DX:Type 2 diabetes mellitus (HCC) History of pulmonary embolism DX :History of pulmonary embolism Dizziness DX:Dizziness Family History Medical History Relation Name Comments Colon cancer Father Diabetes Father at age 60 Hypertension Mother Lung cancer Other FH: Grandfather and Grandmother. Relation Name Status Comments Father Mother Other Social History Tobacco Use Types Packs/Day Years Used Date Smoking Tobacco: Never Smokeless Tobacco: Never Tobacco Cessation:Counseling Given: Not Answered Alcohol Use Standard Drinks/Week Comments Not Currently 0 (1 standard drink = 0.6 oz pur e alcohol) Sex and Gender Information Value Date Recorded Sex Assigned at Not on file Legal Sex Male 8:40 PM EST Gender Identity Not on file Sexual Orientation Not on file Obstetrics History Last Filed Vital Signs Vital Sign Reading Time Taken Comments Blood Pressure 130/70 10/03/2023 2:32 PM EDT Sit ting L Arm Pulse 79 10/03/2023 2:32 PM EDT Temperature - - Respiratory Rate - - Oxygen Saturation - - Inhaled Oxygen Concentration - - Weight 137 kg (303 lb) 06/15/2024 8:56 AM EST Height 167.6 cm (5' 5.98 ) 06/15/2024 8:56 AM ES T Body Mass Index 48.93 06/15/2024 8:56 AM EST Plan of Treatment Upcoming Encounters Date Type Department Care Team (Late st Contact Info) Description 08/10/2024 1:10 PM EDT Office Visit [facility] [address] [place] [address] [place] [address] Clint Alfredo NP [address] [place] [address] [address] [place] [address] 08/17/2024 9:00 AM EDT Office Visit Orthopedic Surgery - [place] [address] [id number] Yunier Saldivar, DPJohn [address] [address] Health Maintenance Due Date Last Done Comments Diabetes: Annual Foot Exam 1982 Diabetes: Annual Retina Eye Exam 1982 DTaP,Tdap,and Td Vaccines (1 - Tdap) 12/11/1991 Hepatitis B Vaccines (1 of 3 - 19+ 3-dose series) 12/11/1991 Pneumococcal Vaccine: 50+ Years (1 of 2 - PCV) 12/11/1991 Pneumococcal Vaccine: Pediatrics (0 to 5 Years) and At-Risk Patients (6 to 64 Years) (1 of 2 - PCV) 12/11/1991 Diabetes: Annual GFR (Glomerular Filtration Rate) 04/13/2021 04/13/2020, 12/11/2017, 12/11/2017, Additional history exists Cholesterol Screening (Lipid Panel) 03/24/2022 Colorectal Cancer Screening: Colonoscopy 03/24/2022 Depression Screening 03/24/2022 HIV Screening 03/24/2022 Hepatitis C Screening 03/24/2022 Social Influencers of Health Screening 03/24/2022 Zoster Vaccines (1 of 2) 2022 Hypertension/CHF/CAD Annual BMP Blood Test 05/14/2023 04/13/2020, 12/11/2017, 12/11/2017, Additional history exists COVID-19 Vaccine ( season) 2023 03/11/2021, 11/02/2020 Influenza Vaccine (#1) 2023 01/24/2023 Diabetes: Annual Urine Albumin-Creatinine Ratio (uACR) 04/07/2024 Diabetes: Blood Sugar Control Test (HGBA1C) 04/07/2024 2017 MMR Vaccines Aged Out 08/07/2022 No longer eligi ble based on patient's age to complete this topic HIB Vaccines Aged Out No longer eligi ble based on patient's age to complete this topic HPV Vaccines Aged Out No longer eligi ble based on patient's age to complete this topic Hepatitis A Vaccines Aged Out No long er eligible based on patient's age to complete this topic IPV Vaccines Aged Out No longer eligi ble based on patient's age to complete this topic Meningococcal ACWY Vaccine Aged Out N o longer eligible based on patient's age to complete this topic Meningococcal B Vacine Aged Out No lo nger eligible based on patient's age to complete this topic RSV Immunization Patients Under 20 months Aged Out No longer eligible based on patient's age to complete this topic Varicella Vaccines Aged Out No longer eligible based on patient's age to complete this topic Procedures Procedure Name Priority Date/Time Associated Diagnosis Comments ANNUAL BMP BLOOD TEST Routine 04/13/2020 from Last 3 Months or Most Recently Relevant to Health Maintenance Results * Annual BMP Blood Test (04/13/2020) Annual BMP Blood Test abstracted us Historical Provider HEALTH MAINTENANCE Final Result from Last 3 Months or Most Recently Relevant to Health Maintenance Insurance [facility] [employer] Advance Directives Documents on File Type Date Recorded Patient Sales And Marketing Assistant Expl anation Health Care Decision (hx) 06/29/2017 AD GARCIA DIRECTIVE Health Care Decision (hx) 06/29/2017 AD GARCIA DIRECTIVE Health Care Decision (hx) 06/29/2017 AD GARCIA DIRECTIVE Health Care Decision (hx) 06/29/2017 AD GARCIA DIRECTIVE Health Care Decision (hx) 06/29/2017 AD GARCIA DIRECTIVE Health Care Decision (hx) 06/29/2017 AD GARCIA DIRECTIVE Health Care Decision (hx) 06/29/2017 AD GARCIA DIRECTIVE Health Care Decision (hx) 06/29/2017 AD GARCIA DIRECTIVE Health Care Decision (hx) 06/29/2017 AD GARCIA DIRECTIVE Health Care Decision (hx) 06/29/2017 AD GARCIA DIRECTIVE Health Care Decision (hx) 06/29/2017 AD GARCIA DIRECTIVE Health Care Decision (hx) 06/29/2017 AD GARCIA DIRECTIVE Health Care Decision (hx) 06/29/2017 AD GARCIA DIRECTIVE Health Care Decision (hx) 06/29/2017 AD GARCIA DIRECTIVE Health Care Decision (hx) 06/29/2017 AD GARCIA DIRECTIVE Health Care Decision (hx) 06/29/2017 AD GARCIA DIRECTIVE Health Care Decision (hx) 06/29/2017 AD GARCIA DIRECTIVE Health Care Decision (hx) 06/29/2017 AD GARCIA DIRECTIVE Health Care Decision (hx) 06/29/2017 AD GARCIA DIRECTIVE Health Care Decision (hx) 06/29/2017 AD GARCIA DIRECTIVE Health Care Decision (hx) 06/29/2017 AD GARCIA DIRECTIVE Health Care Decision (hx) 06/29/2017 AD GARCIA DIRECTIVE Health Care Decision (hx) 06/29/2017 AD GARCIA DIRECTIVE Health Care Decision (hx) 06/29/2017 AD GARCIA DIRECTIVE Health Care Decision (hx) 06/29/2017 AD GARCIA DIRECTIVE Health Care Decision (hx) 06/29/2017 AD GARCIA DIRECTIVE Health Care Decision (hx) 06/29/2017 AD GARCIA DIRECTIVE Health Care Decision (hx) 06/29/2017 AD GARCIA DIRECTIVE Health Care Decision (hx) 06/29/2017 AD GARCIA DIRECTIVE Health Care Decision (hx) 06/29/2017 AD GARCIA DIRECTIVE Care Teams Ambulatory Technologist Relationship Specialty Start Date End Date Brandin Valdez MD [address] [place] [address] PCP - General Internal Medicine 03/27/12
--- OUTSIDE RECORDS SUMMARY | 2024-07-07 17:29 | XMS_ITS | Clinical Summary ---
Author Organization [facility] Address [address] [place] [address] Care Team Providers Care Swimming Pool Maintenance Name Role Phone Brandin Valdez MD Primary Care Provider [phone] Allergies Active Allergy Reactions Criticality Noted Date Comments Vancomycin Rash Low 09/17/2014 Medications Medication Sig Dispensed Refills Start Date End Date Status ammonium lactate (LAC-HYDRIN) 12 % lotion APPLY TO SOLES OF FEET DAILY. AT NIGHT WEAR SOCKS TO BED 0 04/18/2022 Active atorvastatin (LIPITOR) tablet 40 mg 0 07/03/2022 Active carvedilol (COREG) 6.25 MG tablet TAKE 1 TABLET BY MOUTH TWICE A DAY WITH FOOD 0 06/02/2022 Active cefpodoxime (VANTIN) 200 MG tablet TAKE 1 TABLET BY MOUTH EVERY 12 HOURS FOR 10 DAYS 0 06/24/2022 Active cyanocobalamin 500 MCG tablet Take 1 tablet (500 mcg total) by mouth daily. for 30 days 0 06/13/2022 Active DULoxetine (CYMBALTA) DR capsule 30 mg 0 07/11/2022 Active escitalopram (LEXAPRO) tablet 10 mg Take 2 tablets (20 mg total) by mouth. 0 12/27/2021 Active hydrALAZINE (APRESOLINE) 100 MG tablet TAKE 1 TABLET BY MOUTH THREE TIMES A DAY WITH FOOD FOR 90 DAYS 0 06/17/2022 Active ketoconazole (NIZORAL) 2 % cream Apply cream to the affected areas of the bottom and top of feet twice daily 0 06/25/2022 Active losartan (COZAAR) tablet 50 mg 1 TABLET BY MOUTH 2 TIMES A DAY 90 DAYS 0 04/27/2022 Active metFORMIN (GLUCOPHAGE) tablet 1000 mg TAKE 1 TABLET BY MOUTH EVERY DAY WITH A MEAL 0 06/17/2022 Active topiramate (TOPAMAX) 100 MG tablet TAKE 1 TABLET BY MOUTH TWICE A DAY FOR 90 DAYS 0 06/19/2022 Active warfarin (COUMADIN) 5 MG tablet TAKE 1 TO 3 TABLETS BY MOUTH DAILY DIRECTED BY THE COUMADIN CLINIC 0 06/20/2022 Active Active Problems No known active problems Social History Tobacco Use Types Packs/Day Years Used Date Smoking Tobacco: Never Smokeless Tobacco: Never Tobacco Cessation:Counseling Given: Not Answered Alcohol Use Standard Drinks/Week Comments Yes 0 (1 standard drink = 0.6 oz pur e alcohol) Social Sex and Gender Information Value Date Recorded Sex Assigned at Not on file Gender Identity Not on file Sexual Orientation Not on file Job Start Date Occupation Industry Not on file Not on file Not on file Last Filed Vital Signs Vital Sign Reading Time Taken Comments Blood Pressure 181/100 07/12/2022 1:29 PM EDT Pulse 67 07/12/2022 1:29 PM EDT Temperature 36.9 ??C (98.4 ??F) 07/12/2022 1:29 PM ED T Respiratory Rate - - Oxygen Saturation 99% 07/12/2022 1:29 PM EDT Inhaled Oxygen Concentration - - Weight 96.6 kg (213 lb) 07/12/2022 1:29 PM EDT Height - - Body Mass Index - - Plan of Treatment Health Maintenance Due Date Last Done Comments Hepatitis B Vaccines (1 of 3 - 3-dose series) 1972 Hepatitis C Screening 1972 Depression Screening 1984 Preventative Health Evaluation 1990 DTap / Tdap / Td (1 - Tdap) 12/11/1991 Colon Cancer Screening (Colonoscopy) 2017 Shingrix-Zoster Vaccine (1 of 2) 2022 COVID-19 Vaccine (2 - 2023-2 5 season) 2023 11/02/2020 Influenza Vaccine (#1) 2023 Pneumococcal Vaccine Aged Out 02/16/2014 No long er eligible based on patient's age to complete this topic RSV Ped < 20 months Aged Out No longe r eligible based on patient's age to complete this topic Care Teams Swimming Pool Maintenance Relationship Specialty Start Date End Date Brandin Valdez MD [address] [place] [address] PCP - General Internal Medicine 06/14/22
== END 2024-07-07 15:04 | disposition home or self-care (01) ==
LOC: HO.HKAS 14:01
PROVIDERS: Visit Provider Internal Medicine Nephrology
DX: I10 Essential (primary) hypertension (principal)
CPT/HCPCS: 99204

== ENCOUNTER → 2024-07-07 14:00 | Outpatient (BNVA) | payer OTHER, SELFPAY | PROVIDERS: Visit Provider Internal Medicine Nephrology | DX: I10 Essential (primary) hypertension (principal) | CPT/HCPCS: 99202 ==

== ENCOUNTER → 2024-07-09 09:59 | Outpatient (BNVA) | payer OTHER, SELFPAY | PROVIDERS: Visit Provider Internal Medicine Nephrology | DX: I10 Essential (primary) hypertension (principal); Z01.30 Encounter for examination of blood pressure without abnormal findings | CPT/HCPCS: 93786; 93788 ==

== ENCOUNTER 2024-07-21 11:04 | Outpatient (AMB) | payer OTHER, SELFPAY ==
--- NOTE | 2024-07-21 11:21 | HO.NEPHOV_ITS ---
Vital Signs 07/21/24 11:22 Height 5 ft 6 in Weight 326 lb 4 oz BMI 52.7 BP 160/100 H Blood Pressure Location Lt brachial Position Sitting Intake Visit Reasons: 2wk [id number] Atomic Process Engineer Required: No Accompanied by: Self / Same As Patient Allergies vancomycin Allergy (Verified 07/21/24 11:22) Unknown HPI Comments Details: I had the delight of seeing Mr Bear in follow up for resistant hypertension. He is 53 years of age and currently unemployed. He has been having blood pressure well over 20 years and had been on medications, which he is compliant with. He denies excess sodium in the diet. He has H/O retinopathy and CVA. He is a diabetic & has obstructive sleep apnea and is on CPAP which he claims to be compliant with. His blood sugar is not well controlled. He denies any proteinuria or renal dysfunction. He has not had any Doppler of his renal arteries. He denies any history of cocaine use. He had 24 hour BPM which showed uncontrolled BP. He denies any other systemic complaints other than what has been mentioned above. He is quite concerned about her ongoing poor blood pressure control. [facility] Medical History HTN (hypertension) Unspecified mononeuropathy of bilateral lower limbs Solitary pulmonary nodule Cerebral infarction Nontraumatic intracerebral hemorrhage, unspecified Other pulmonary embolism without acute cor pulmonale Retinal artery branch occlusion of right eye Polyneuropathy Hereditary and idiopathic neuropathy, unspecified TRAM (obstructive sleep apnea) Insomnia Other transient cerebral ischemic attacks and related syndromes Male erectile disorder MDD (major depressive disorder), recurrent episode, severe Vitamin B12 deficiency anemia due to intrinsic factor deficiency Tinea pedis Generalized anxiety disorder Hyperlipidemia Type II diabetes mellitus Neuropathy CHF (congestive heart failure) CVA (cerebral vascular accident) Cerebellar infarction Abnormal CT scan, head Surgical History Hx of cardiac cath History of cholecystectomy Family History Father Diabetes Social History Household Members: None Housing: Apartment Do you presently have visiting nurse or other home services: No Alcohol intake: former Comment: 1:1 for SI Patient Tobacco Use Status: Never used Tobacco e-Cigarette/Vaping Use: Never Used service: No Sexual orientation: Straight/Heterosexual Review of Systems Const All systems reviewed & are unremarkable except as noted in HPI and below Physical Exam Vital Signs: Last Vital Signs BP 130/100 H 07/21/24 11:22 BMI result Body Mass Index 52.7 Const General: comfortable and no acute distress Orientation/consciousness: patient oriented x3 HEENT Head: Yes normocephalic Mouth: Normal oral and palatal mucosa present Eyes EOM: EOMs intact bilaterally Neck Neck: Yes supple Resp Auscultation: clear to auscultation bilaterally Cardio Jugular venous distension: no JVD Rate: regular rate GI Palpation (GI): Soft to palpation Auscultation: normal bowel sounds General: Yes no CVA tenderness Back/Spine/Pelvis Back: no CVA tenderness Skin General skin exam: no rashes or lesions noted Neuro General: patient oriented x3 and moves all extremities Extrem General: Yes no pedal edema Results Reviewed Nephrology Results: Sodium 142 mmol/L (135-145) 02/17/23 Potassium 3.5 mmol/L (3.3-5.1) 02/17/23 Chloride 107 mmol/L (96-108) 02/17/23 Carbon Dioxide 27 mmol/L (22-29) 02/17/23 BUN 28 mg/dL (9-16) H 02/17/23 Creatinine 1.04 mg/dL (0.5-1.4) 02/17/23 Calcium 9.1 mg/dL (8.4-10.2) 02/17/23 Assessment & Plan Assessment & Plan (1) HTN (hypertension): Code(s): I10 - Essential (primary) hypertension Category: Medical Qualifiers: Hypertension type: primary hypertension Qualified Code(s): I10 - Essential (primary) hypertension Plan Life style modifications including weight loss , exercise and low sodium diet Continue CPAP; 24 hour BPM reviewed May need Doppler of renal arteries; Renal function normal On Entresto as well as Spironolactone/ Farxiga; Serum Potassium OK Needs to follow up his last ECHO. D/C ed Amlodipine Started Nifedipine 30 mg daily Answered all questions; Follow up given Medications: New nifedipine ER 30 mg PO DAILY 30 tabs 4RF Coding Level of Care Code Est Pt Level 4 (10759) Diagnoses Primary hypertension I10 Hypertension type: primary hypertension
[2024-07-21 11:22] VITALS: BP 160/100; BMI 52.7
--- OUTSIDE RECORDS SUMMARY | 2024-07-21 13:28 | XMS_ITS ---
Author Organization [facility] Address [address] [address] Care Team Providers Care Clerk Funeral Detail Name Role Phone NISH WILD Primary Care Provider REASON FOR VISIT lab Slip Encounters Encounter Location Date Provider Diagnosis [facility] [address] [facility] [address] [place] [address] 07/16/2024 TORRI MOCK Frequency of micturition R35.0 Assessments Encounter Date Diagnosis (ICD Code) Assessment Notes Treatment Notes Treatment Clinical Notes Section Notes 07/16/2024 Frequency of micturition (ICD-10 - R35.0) Plan Of Treatment Pending Test Test Name Order Date Urinalysis, Routine-[id number] 07/16/2024 Progress Notes * Ayden TAMAYODOB: 3 (53 yo M)Acc No.[id number]:07/16/2024 Patient:?Ayden TAMAYO :1970???Age:53 Y???Sex:Male Address:[address] [place] [id number] Subjective: * Chief Complaints: * ???lab Slip * Medical History:? * Surgical History:? * Hospitalization/Major Diagno stic Procedure:? * Medications:? Objective: * Vitals:? * Physical Examination:? Assessment: * Assessment: 1.?Frequency of micturition - R35.0??? Plan: * Treatment: * Procedure Codes:? * true * Date:? Generated for Elii french/Alejandro/eTransmitting on:?07/21/2024 01:28 PM EDT
--- OUTSIDE RECORDS SUMMARY | 2024-07-21 13:29 | XMS_ITS ---
Author Organization [facility] Address [address] [facility] [address] [place] [address] Care Team Providers Care Medical File Clerk Name Role Phone TORRI MOCK Primary Care Provider Priscila Faith Unavailable [phone] Allergies Allergen (clinical drug ingredient) Drug/Non Drug Allergy documented on EMR Reaction Allergy Type Onset Date Status vancomycin Vancomycin HCl Unknown Drug Allergy A ctive REASON FOR VISIT 2 wk f/u BP Medications Medication SIG (Take, Route, Frequency, Duration) Notes Start Date End Date Status OneTouch Lancets check blood sugars 3 times a day DX: E08.40 for 90 days 09/23/2023 Active FreeStyle Lite Test - check blood sugar 2 times a day for 90 days 11/08/2023 Active OneTouch Verio - check blood sugars 3 times a day DX: E08.40 for 90 days 09/23/2023 Active Lidocaine 4 % 1 application as nee ded Externally Three times a day for 30 days 11/21/2023 Active Atorvastatin Calcium 40 MG 1 tablet Orally Once a day for 90 days Active [facility] B-12 500 MCG TAKE 1 TABLET BY MILADY TH EVERY DAY FOR 30 DAYS for 90 Active Freestyle Test Strips as directed use to check blood sugars 3 times a day for 90 days 03/03/2020 Active FreeStyle Lancets - as directed use to t est blood sugars 3 times a day for 90 days 03/03/2020 Active Entresto 49-51 MG 1 tablet Orally Twic e a day for 90 days 09/28/2022 Active Blood Pressure Kit - With large adult cu ff. Dx: I10 for 30 days 11/15/2022 Active Spironolactone 25 MG 1 tablet Orally 06/16/2024 Active PROzac 10 MG 1 capsule Orally Onc e a day 05/23/2023 Active Multivitamin Men 50+ - as directed Orall y one tablet daily Active Aspirin 81 MG 1 tablet Orally Once a day Active Warfarin Sodium 10 MG 1 tablet Orally On ce a day Active FreeStyle Lite - as directed use to t est blood sugars for 30 days 03/03/2020 Not-Taking hydrALAZINE HCl 50 MG 1 tablet with food Orally Twice a day for 30 days 07/16/2024 Active amLODIPine Besylate 10 MG 1 tablet Orall y Once a day for 30 days 06/09/2024 Active Cymbalta 60 MG 1 capsule Orally Twi ce a day for 90 days Not-Taking Trulicity 0.75 MG/0.5ML as directed Subcutaneous weekly for 30 days 06/09/2024 Active Effexor XR 75 MG 1 capsule with food Orally Once a day 04/03/2023 Not-Taking amLODIPine Besylate 2.5 MG TAKE 1 TABLET BY MOUTH EVERY DAY FOR 30 DAYS for 90 Not-Taking Ozempic (0.25 or 0.5 MG/DOSE) 2 MG/3ML 0.25 mg Subcutaneous Once weekly for 30 days 06/08/2024 Not-Taki ng Carvedilol 25 MG TAKE 1 TABLET BY MILADY TH TWICE A DAY WITH FOOD for 90 Not-Taking hydrALAZINE HCl 25 MG 1 tablet with food Orally 2 times a day for 90 days 08/05/2023 Not-Taking amLODIPine Besylate 5 MG TAKE 1 TABLET B Y MOUTH EVERY DAY FOR 90 DAYS for 90 Not-Taking Mirtazapine 7.5 MG 1 tablet Orally At bedtime for 30 days Not-Taking Lantus SoloStar 100 UNIT/ML 15units Subcutaneous once a day for 30 days Active metFORMIN HCl 1000 MG TAKE 1 TABLET BY M OUT EVERY DAY WITH A MEAL FOR 90 DAYS for 90 Active Farxiga 5 MG 1 tablet Orally Once a day for 30 days 08/05/2023 Not-Taking Topiramate 100 MG TAKE 1 TABLET BY MILADY TH TWICE A DAY for 90 Active hydrALAZINE HCl 25 MG 1 tablet with food Orally Twice a day for 30 days 06/26/2024 Active Carvedilol 25 MG TAKE 1 TABLET BY MILADY TH TWICE A DAY WITH FOOD Orally Twice a day for 90 days Active Farxiga 10 MG 1 tablet Orally Once a day for 90 days 02/25/2024 Active Sildenafil Citrate 50 MG 1 tablet as nee ded Orally Once a day for 30 days 02/25/2024 Active Social History Tobacco Use: Social History Observation Description Date Details (start date - stop date) Never Smoker NA - NA Tobacco Use/Smoking Question Answer Notes Are you a nonsmoker Alcohol Screen (Audit-C) Question Answer Notes Did you have a drink containing alcohol in the p ast year? No Points 0 Interpretation Negative Vital Signs Temperature 97.9 degrees Fahrenheit 07/17/19 25 Oximetry 100 % 07/16/2024 Heart Rate 92 /min 07/16/2024 Blood pressure systolic 150 mm Hg 07/17/19 25 Blood pressure diastolic 100 mm Hg 025 Weight 328.2 lbs 07/16/2024 BMI 52 kg/m2 07/16/2024 Height 66.61 in 07/16/2024 Encounters Encounter Location Date Provider Diagnosis [facility] [address] [address] 07/16/2024 Priscila Faith Essential (primary) hypertension I10 Assessments Encounter Date Diagnosis (ICD Code) Assessment Notes Treatment Notes Treatment Clinical Notes Section Notes 07/16/2024 Essential (primary) hypertension (ICD-10 - I10) Rio is a 53-year-old gentleman with CHF, hypertension, hyperlipidemia, generalized anxiety disorder and DM2 here for BP check. As follows Hypertension - Blood pressure is persistently elevated despite being on 3 different blood pressure medications. He has been compliant with his meds. He is noncompliant with his diet.Increase hydralazine to 50 mg. Pending comp. He is now following with nephrology, he has an appointment coming up for blood pressure check and renal Doppler ultrasound will be considered. I have rendered the services for this patient under direct supervision of Dr. Mock, who did not see the patient but was available upon request Plan Of Treatment Medication Medication Name Sig Start Date Stop Date Notes hydrALAZINE HCl 50 MG 1 tablet with food Orally Twice a day for 30 days 07/16/2024 Next Appt Details Follow Up: 4 Weeks, Reason: Progress Notes * Ayden BEARDOBharti: 3 (53 yo M)Acc No.[id number]:07/16/2024 Progress Notes Patient:?Ayden BEAR Appointment Provider:?Priscila Faith :1970???Age:53 Y???Sex:Male Sup ervising Provider:Surya Forte Date:07/16/2024 Address:[address] [place] [address] Pcp:TORRI MOCK Subjective: * Chief Complaints: * ???2 wk f/u BP * HPI: ???Internal Medicine:?Rio is a 53-year-old gentleman with CHF, hypertension, hyperlipidemia, generalized anxiety disorder and DM2 here for BP check. 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 He will also be getting Doppler renal ultrasound.? And he has a follow- up with nephrology next week.? He has been compliant with the medication he lost 4 pounds since the last visit.? He denies any chest pain, sense of breath, dyspnea on exertion.? Denies any other active issues. * ROS:?General/Constitutional:?Overall health?Good.?Change [...] ctomy cardiac cath * Hospitalization/Major Diagno stic Procedure:?blood clot in lung antonio lactic acidosis 2021 * Family History:?Father: dece ased, colon cancer, [...] Tablet 1 tablet Orally Once a day Trulicity 0.75 MG/0.5ML Solution Auto-injector as directed [...] BY MOUTH EVERY DAY FOR 30 DAYS Freestyle Test Strips as directed use to [...] 1 TABLET BY MOUTH TWICE A DAY hydrALAZINE HCl 25 MG Tablet 1 tablet with food Orally Twice a day Lantus SoloStar 100 UNIT/ML Solution Pen-injector 15units Subcutaneous once a day metFORMIN HCl 1000 MG Tablet TAKE 1 TABLET BY MOUTH EVERY DAY WITH A MEAL FOR 90 DAYS Taking amLODIPine Besylate 10 MG Tablet 1 tablet Orally Once a day Taking Trulicity 0.75 MG/0.5ML Solution Auto-injector as [...] MOUTH EVERY DAY FOR 30 DAYS Taking Freestyle Test Strips as directed use [...] TABLET BY MOUTH TWICE A DAY Taking hydrALAZINE HCl 25 MG Tablet 1 tablet with food Orally Twice a day Taking Lantus SoloStar 100 UNIT/ML Solution Pen-injector 15units Subcutaneous once a day Taking metFORMIN HCl 1000 MG Tablet TAKE 1 TABLET BY MOUTH EVERY DAY WITH A MEAL FOR 90 DAYS Not-TakingamLODIPine Besylate 5 MG Tablet TAKE 1 TABLET BY MOUTH EVERY DAY FOR 90 DAYS Mirtazapine 7.5 MG Tablet 1 tablet Orally [...] the patientNot-Taking amLODIPine Besylate 5 MG Tablet TAKE 1 TABLET BY MOUTH EVERY DAY FOR 90 DAYS Not-Taking Mirtazapine 7.5 MG Tablet 1 tablet [...] Allergies:?Vancomycin HCl: A llergyno[Allergies Verified] Objective: * Vitals:?Temp:97.9F, Oxygen s at %:100%, HR:92/min, BP:150/100mm Hg, Wt:328.2lbs, BMI:52Index, Ht: 66.61 in. * Examination: ???General Examination: [...] and lower extremities, sensory exam intact.?FEMALE GENITOURINARY:?__.?MALE GENITOURINARY:?__.?PODIATRIC:?Normal.?Appliance Tester? .? Assessment: * Assessment: 1.?Essential (primary) hyper tension - I10 (Primary)??? Rio is a 53-year-old gentl eman with CHF, hypertension, hyperlipidemia, generalized anxiety disorder and DM2 here for BP check. As follows Hypertension - Blood pressure is persistently elevated despite being on 3 different blood pressure medications. He has been compliant with his meds. He is noncompliant with his diet.Increase hydralazine to 50 mg. Pending comp. He is now following with nephrology, he has an appointment coming up for blood pressure check and renal Doppler ultrasound will be considered.? I have rendered the services for this patient under direct supervision of Dr. Mock, who did not see the patient but was available upon request Plan: * Treatment: * Procedure Codes:? * Follow Up:?4 Weeks * Images: Review Notes: Surya Forte 2024-07-16 16:19:26* Electronically co-signed by Surya Forte on 07/16/2024 at 04:19 PM EDT Sign off status: Completed true * Appointment Provider:?Priscila Faith Da te:?07/16/2024 Generated for Deni braswell/Alejandro/Rosendoitting on:?07/21/2024 01:29 PM EDT History and Physical Notes * HPI (History of Present Illness) Category Sub-Category Detail Notes Category Not es Internal Medicine Rio is a 53-year-old gentleman with CHF, hypertension, hyperlipidemia, generalized anxiety disorder and DM2 here for BP check. 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 He will also be getting Doppler renal ultrasound. And he has a follow-up with nephrology next week. He has been compliant with the medication he lost 4 pounds since the last visit. He denies any chest pain, sense of breath, dyspnea on exertion. Denies any other active issues Examination Category Sub-Category [...] Normal Psychiatry Normal OROPHARYNX Normal SINUSES Normal Appliance Tester
--- OUTSIDE RECORDS SUMMARY | 2024-07-21 13:29 | XMS_ITS ---
Author Organization [facility] Address [address] [address] Care Team Providers Care Project Lead Name Role Phone TORRI MOCK Primary Care Provider REASON FOR VISIT Kidney Referral Encounters Encounter Location Date Provider Diagnosis [facility] [address] [facility] [address] [place] [address] 06/26/2024 TORRI MOCK Plan Of Treatment No Information Progress Notes * Ayden TAMAYODOB: 3 (53 yo M)Acc No.[id number]:06/26/2024 Patient:?Ayden TAMAYO :1970???Age:53 Y???Sex:Male Address:[address] [place] [address] , [place] [address] * true * Date:? Generated for Printi ng/Fatommyg/eTransmitting on:?07/21/2024 01:28 PM EDT
--- OUTSIDE RECORDS SUMMARY | 2024-07-21 13:29 | XMS_ITS | Clinical Summary ---
Author Organization [facility] Address [address] [place] [address] Care Team Providers Care Cyber Engineer Name Role Phone Brandin Valdez MD Primary Care Provider [phone] Allergies Active Allergy Reactions Criticality Noted Date [...] age to complete this topic Care Teams Cyber Engineer Relationship Specialty Start Date End Date Brandin Valdez MD [address] [place] [address] PCP - General Internal Medicine 06/14/22
--- OUTSIDE RECORDS SUMMARY | 2024-07-21 13:30 | XMS_ITS | Clinical Summary ---
Author Organization [facility] Address [address] [place] [address] Phone Care Team Providers Care Gym Instructor Name Role Phone Brandin Valdez MD Primary Care Provider Allergies Active Allergy Reactions Criticality Noted Date [...] Colorectal Cancer Screening: Sigmoidoscopy 2021 Influenza Vaccine (Season Ended) 2024 Insurance [place] Care Teams Gym Instructor Relationship Specialty Start Date End Date Brandin Valdez MD [address] [place] [address] PCP - General Internal Medicine 04/25/22
--- OUTSIDE RECORDS SUMMARY | 2024-07-21 13:30 | XMS_ITS | Clinical Summary ---
Author Organization 175 [facility] Address [address] [place] [address] Phone Care Team Providers Care Cotton Breeder Name Role Phone Brandin Valdez MD Primary Care Provider [phone] Allergies Active Allergy Reactions Criticality Noted Date Comments Vancomycin Rash Low 09/17/2014 Medications atorvastatin (LIPITOR) 40 mg tablet 07/03/2022 Active topiramate (TOPAMAX) 100 mg tablet Take 1 tablet (100 mg total) by mouth 2 (two) times a day. 06/19/2022 Active sacubitril/valsa rtan (ENTRESTO ORAL) Take 1 tablet by mouth [...] Take 1 Tablet by mouth See Admin Instructions . May cause heavy bleeding. Take at same time every day. Do not change dietary habits Active carvediloL (COREG) 25 mg tablet Take 1 tablet (25 mg total) by mouth 2 (two) times a day with meals. Active multivitamin (DAILY-WENCESLAO ORAL) Take 1 tablet by mouth Active metFORMIN (GLUCOPHAGE) 1,000 mg tablet Take by mouth 2 Times Daily Active spironolactone (ALDACTONE) 25 mg tabletIndication s:Cardiomyopathy , unspecified,Pers onal history of other endocrine, nutritional and metabolic disease TAKE 1 TABLET BY MOUTH EVERY DAY 90 tablet 1 06/15/2024 Active Active Problems Problem Noted Date Diagnosed Date CHF (congestive heart failure) 03/01/2024 Hypertension 03/01/2024 Cerebrovascular accident 03/01/2024 Orthostatic hypotension 03/01/2024 Cardiomyopathy 03/01/2024 HLD (hyperlipidemia) 03/01/2024 Major depression in remission 03/01/2024 Asthma 03/01/2024 Dizziness 03/01/2024 Encounters Date Type Department Care Team Description 06/15/2024 9:00 AM EST Office Visit [facility] [place] [address] [place] [phone] Yunier Saldivar DPM Controlled type 2 diabetes with neuropathy ([facility]) (Primary Dx); Venous insufficiency; Hammertoes of both [...] Description 08/10/2024 1:10 PM EDT Office Visit [facility] [address] [place] [address] Clint Alfredo NP [address] [place] [address] [address] [place] [address] 08/17/2024 9:00 AM EDT Office Visit [facility] - [place] 250 175 [facility] [address] [place] [phone] Yunier Saldivar, HARMONY [address] [address] Health Maintenance Due Date Last Done Comments [...] COVID-19 Vaccine ( season) 2023 03/11/2021, 11/02/2020 Diabetes: Annual Urine Albumin-Creatinine Ratio (uACR) 04/07/2024 Diabetes: Blood Sugar Control Test (HGBA1C) 04/07/2024 2017 Influenza Vaccine (Season Ended) 2024 01/24/2023 MMR Vaccines Aged Out 08/07/2022 No longer [...] age to complete this topic Meningococcal B Vaccine Aged Out No l onger eligible based on patient's age to complete [...] Test (04/13/2020) Annual BMP Blood Test abstracted Historical Provider HEALTH MAINTENANCE Final Result from Last 3 Months or Most Recently Relevant to Health Maintenance Insurance [facility] [employer] Advance Directives Documents on File Type Date Recorded Patient Brick Wheeler Expl anation Health Care Decision (hx) 06/29/2017 [...] (hx) 06/29/2017 AD GARCIA DIRECTIVE Care Teams Cotton Breeder Relationship Specialty Start Date End Date Brandin Valdez MD [address] [place] [address] PCP - General Internal Medicine 03/27/12
--- OUTSIDE RECORDS SUMMARY | 2024-07-21 13:30 | XMS_ITS | Data Portability ---
Author Organization [facility], [address] Address [address] [place] [address] Care Team Providers Care Car Restorer Name Role Phone TORRI MOCK Primary Care [...] evaluation and treatment. 2022 023 acardinal 3 [facility], [address] [place], [address], 10:47:54 Procedures None recorded. Surgeries None recorded. Imaging None recorded. Medication Orders None recorded. Patient TargetsNo targets recorded. Patient Instructions Encounter Date Encounter Id Patient Instructions Last Modified By Organization Details Last Modified Time 05/11/2022 [id number] cough: care instructions javid Not available 05/11/2022 [...] Address Organization Details Recorded Time Hypertensive disorder 16034940 Active KARTHIK BURT-RIVE RA null, [place] - [facility] 3 10:17:52 Diabetes mellitus 18259699 Active KARTHIK BURT-RIVE RA null, [place] - [facility] 3 10:18:01 Neuropathy 111556530 Active KARTHIK BURT-RIVE RA null, [place] - [facility] 3 10:18:10 Depressive disorder 43147627 Active KARTHIK BURT-RIVE RA null, [place] - [facility] 3 10:18:18 Anxiety 95908807 Active KARTHIK BURT-RIVE RA null, [place] - [facility] 3 10:18:26 Pulmonary embolism 53748992 Active KARTHIK BURT-RIVE RA null, PA - [...] Name and Address Organization Details Recorded Time 325494 vancomyci n medicatio n hives Not available Not available 05/11/2022 [id number] RxNorm KARTHIK BURT-RIVE RA null, [place] - [...] Updated DateTime 3 167.64 cm 36.3 kg/m2 229630. 28 g 0 18 /min 98 % [...] SNOMED-CT Code Diagnosis ICD10 Code Diagnosis Note [id number] [place] [address] 01/20/2022 14:45:34 01/20/2022 20:10:37 [id number] [place] [address] [place] [address] 05/11/2022 09:28:36 05/11/2022 10:47:54 Dyspnea on exertion 40195666 R06.09 Health Concerns Section Related Observation LastModified by Organization Detai ls LastModified Time None Recorded Concern Status LastModified by Organization Details LastModified Time None Recorded Advance Directives Directive None Recorded Payers Encounter Date Sequence Insurance Name Policy Number Policy Henriquez Covered Member ID Henriquez Member ID Guarantor Name 01/20/2022 1 [facility] [email or web address] - TOGETHER WITH [employer] (MEDICAID REPLACEMENT - HMO) [id number] Ayden Bear [id number] Ayden Bear 05/11/2022 1 [facility] [email or web address] - TOGETHER WITH [employer] (MEDICAID REPLACEMENT - HMO) [id number] Ayden Bear [id number] Ayden Bear Notes Date Note Type [...] Shimon King NP [address] [place], [address], [place] - [facility] 05/11/2022 10:49:17
== END 2024-07-21 11:44 | disposition home or self-care (01) ==
LOC: HO.HKAS 11:04
PROVIDERS: Visit Provider Internal Medicine Nephrology
DX: I10 Essential (primary) hypertension (principal)
CPT/HCPCS: 99214

== ENCOUNTER → 2024-07-21 11:04 | Outpatient (BNVA) | payer OTHER, SELFPAY | PROVIDERS: Visit Provider Internal Medicine Nephrology | DX: I1A.0 Resistant hypertension (principal); G47.33 Obstructive sleep apnea (adult) (pediatric); Z99.89 Dependence on other enabling machines and devices; Z86.73 Personal history of transient ischemic attack (TIA), and cerebral infarction without residual deficits | CPT/HCPCS: 99212 ==

== ENCOUNTER 2024-08-27 14:26 | Outpatient (AMB) | payer OTHER, SELFPAY ==
--- OUTSIDE RECORDS SUMMARY | 2024-08-27 15:01 | XMS_ITS | Encounter Summary ---
Author Organization [facility] Address [address] [place] [address] Care Team Providers Care Comp Field Case Manager Name Role Phone TrumanBrandin abernathy Primary Care Provider [phone] Reason for Visit * Reason Onset Date Comments No Call No Show 08/26/2024 Encounter Details Date Type Department Care Team (Late st Contact Info) Description 08/26/2024 Telephone [facility]iology [facility] [address] [place] [phone] Clint Alfredo NP [address] [place] [address] [address] [place] [address] No Call No Show Social History Tobacco Use Types Packs/Day Years [...] on file documented as of this encounter Progress Notes * Nidhi Mcdonald MA - 08/26/2024 10:27 AM EDT Patient recently no-showed on 08/18/24 however has upcoming appointment 09/03/24. documented in this encounter Plan of Treatment Upcoming Encounters Date Type Department Care Team (Late st Contact Info) Description 09/03/2024 2:40 PM EDT Office Visit [facility] [address] [place] [address] Tangela Thacker, NAUN [address] [facility] [address] [place] [address] 09/16/2024 1:45 PM EDT Office Visit Orth[facility] Surgery - [place] [address] [phone] Yunier Saldivar, DPJohn [address] [address] documented as of this encounter Visit Diagnoses Not on filedocumented in this encounter Care Teams Comp Field Case Manager Relationship Specialty Start Date End Date Brandin Valdez MD [address] [place] [address] PCP - General Internal Medicine 08/07/24 documented as of this encounter
--- OUTSIDE RECORDS SUMMARY | 2024-08-27 15:01 | XMS_ITS | Patient Health Record ---
Author Organization [employer] Address [address] [place] [address] Care Team Providers Care Attendant Sales Name Role Phone NISH TORRI Primary Care Provider Radha Franklin Unavailable [phone] Priscila Faith Unavailable [phone] Allergies Allergen (clinical drug ingredient) Drug/Non Drug Allergy documented on EMR Reaction Allergy Type Onset Date Status vancomycin Vancomycin HCl Unknown Drug Allergy A ctive Results Component Value Reference Range Notes Hemoglobin [id number] Reviewed date:02/26/2024 10:03:59 AM Interpretation: Performing Lab:[facility], [address] [facility], Phone - [phone], Director - MDMundo Notes/Report: Hemoglobin A1c 10.6 4.8-5.6 % . Prediabetes: 5.7 - 6.4 Diabetes: >6.4 Glycemic control for adults with diabetes: <7.0 Comp. Metabolic Panel ([id number] Reviewed date:08/10/2024 01:27:34 PM Interpretation: Performing Lab:[facility], [address] [facility], [place], Phone - [phone], Director - MDJodry Notes/Report: Glucose 333 70-99 mg/dL BUN 17 6-24 mg/dL Creatinine 1.04 0.76-1.27 mg/dL eGFR 87 >59 mL/min/1.73 BUN/Creatinine Ratio 16 9-20 Sodium 139 134-144 mmol/L Potassium 4.7 3.5-5.2 mmol/L Chloride 97 96-106 mmol/L Carbon Dioxide, Total 27 20-29 mmol/L Calcium 9.4 8.7-10.2 mg/dL Protein, Total 7.0 6.0-8.5 g/dL Albumin 4.0 3.8-4.9 g/dL Globulin, Total 3.0 1.5-4.5 g/dL Bilirubin, Total 0.4 0.0-1.2 mg/dL Alkaline Phosphatase 101 44-121 IU/L AST (SGOT) 19 0-40 IU/L ALT (SGPT) 21 0-44 IU/L Lipid Panel-[id number] Reviewed date:08/14/2024 11:19:02 AM Interpretation: Performing Lab:[facility], [address] [place] [address], Phone - [phone], Director - Kamilla Notes/Report: Cholesterol, Total 248 100-199 mg/dL Triglycerides 489 0-149 mg/dL HDL Cholesterol 27 >39 mg/dL VLDL Cholesterol José Miguel 89 5-40 mg/dL LDL Chol Calc (NIH) 132 0-99 mg/dL Hemoglobin [id number] Reviewed date:08/10/2024 01:39:39 PM Interpretation: Performing Lab:[facility], [address] [place] [address], Phone - [phone], - Kamilla Notes/Report: Hemoglobin A1c 12.6 4.8-5.6 % . Prediabetes: 5.7 - 6.4 Diabetes: >6.4 Glycemic control for adults with diabetes: <7.0 Written Authorization (Not y et reviewed by provider) Interpretation: Performing Lab:[facility], [address] [place] [address], Phone - [phone], Director Can Kohli Notes/Report: Written Authorization Written Authorization Received. Authorization received from Eleanor Mares for Link Request on 08-10-2024 Logged by Keisha Gallego Comp. Metabolic Panel ([id number] Reviewed date:02/26/2024 10:07:14 AM Interpretation: Performing Lab:[facility], [address] [place] [address], [place], Phone - [phone], Director Can Kohli Notes/Report: Glucose 314 70-99 mg/dL BUN 22 6-24 mg/dL Creatinine 1.10 0.76-1.27 mg/dL eGFR 81 >59 mL/min/1.73 BUN/Creatinine Ratio 20 9-20 Sodium 139 134-144 mmol/L Potassium 4.8 3.5-5.2 mmol/L Chloride 100 96-106 mmol/L Carbon Dioxide, Total 22 20-29 mmol/L Calcium 9.5 8.7-10.2 mg/dL Protein, Total 7.1 6.0-8.5 g/dL Albumin 4.1 3.8-4.9 g/dL Globulin, Total 3.0 1.5-4.5 g/dL Bilirubin, Total 0.3 0.0-1.2 mg/dL Alkaline Phosphatase 96 44-121 IU/L AST (SGOT) 15 0-40 IU/L ALT (SGPT) 21 0-44 IU/L Urinalysis, [id number]-[id number] Reviewed date:08/10/2024 01:27:53 PM Interpretation: Performing Lab:[facility], [address] [place] [address], Phone - [phone], Director - MDStepheniey Notes/Report: Specific [place] 1.028 1.005-1.030 pH 6.5 5.0-7.5 Urine-Color Yellow Yellow Appearance Clear Clear WBC Esterase Negative Negative Protein 3+ Negative/Trace Glucose 3+ Negative Ketones Negative Negative Occult Blood Negative Negative Bilirubin Negative Negative Urobilinogen,Semi-Qn 0.2 0.2-1.0 mg/dL Nitrite, Urine Negative Negative Microscopic Examination See below: Micr oscopic was indicated and was performed. WBC None seen 0 - 5 /hpf RBC None seen 0 - 2 /hpf Epithelial Cells (non renal) 0-10 0 - 10 /hpf Casts None seen None seen /lpf Bacteria None seen None seen/Few Hemoglobin [id number] Reviewed date:01/24/2024 01:47:55 PM Interpretation: Performing Lab:[facility] Purvis, [facility] [facility], [place], Phone - [phone], Director - MDGabrielladry Notes/Report: Hemoglobin A1c 9.2 4.8-5.6 % . Prediabetes: 5.7 - 6.4 Diabetes: >6.4 Glycemic control for adults with diabetes: <7.0 Reason For Referral Reason Persistent elevated Blood pressure despite being on 3 blood pressure meds Evaluate and treat Diagnosis 1 Essential (primary) hypertension (I10) Referral Organization [facility] Referring Provider First Name Priscila Referring Provider Last Name Vianney Referred Provider Specialty Nephrology General Notes Please call the sina ent to schedule the appointment Referral Priority Urgent Reason please evaluate and treat Please evaluate and treat Diagnosis 1 Male erectile disord er (F52.21) Referral Organization [facility] Referring Provider First Name Priscila Referring Provider Last Name Alfredocharlesmarah Referred Provider Specialty Urology General Notes Please call the sina ent to schedule the appointment, MukulTrinain 07/08/2024 04:19:39 PM > Referral Priority Routine Medications Medication SIG (Take, Route, Frequency, Duration) Notes Start Date End Date Status Mirtazapine 7.5 MG 1 tablet Orally At bedtime for 30 days Not-Taking amLODIPine Besylate 5 MG TAKE 1 TABLET BY MOUTH EVERY DAY FOR 90 DAYS for 90 Not-Taking hydrALAZINE HCl 50 MG TAKE 1 TABLET BY MOUTH TWICE A DAY WITH FOOD FOR 30 DAYS for 90 Active hydrALAZINE HCl 25 MG 1 tablet with food Orally Twice a day for 30 days 06/26/2024 Active Topiramate 100 MG TAKE 1 TABLET BY MOUTH TWICE A DAY for 90 Active HumaLOG KwikPen 100 UNIT/ML as directed Subcutaneous acqhs for 30 days take 8 units with meals, before meals daily at bedtime 08/19/2024 Active Entresto 49-51 MG 1 tablet Orally Twice a day for 90 days 09/28/2022 Active Carvedilol 25 MG TAKE 1 TABLET BY MOUTH TWICE A DAY WITH FOOD Orally Twice a day for 90 days Active Multivitamin Men 50+ - as directed Orally one tablet daily Active Lidocaine 4 % 1 application as needed Externally Three times a day for 30 days 11/21/2023 Active Gabapentin 100 MG 2 tablet Orally every night for 30 days 07/30/2024 Active metFORMIN HCl 1000 MG TAKE 1 TABLET BY MOUTH EVERY DAY WITH A MEAL FOR 90 DAYS for 90 Active amLODIPine Besylate 10 MG 1 tablet Orally Once a day for 30 days 06/09/2024 Active Warfarin Sodium 10 MG 1 tablet Orally Once a day Active Aspirin 81 MG 1 tablet Orally Once a day Active Spironolactone 25 MG 1 tablet Orally 06/16/2024 Active Sildenafil Citrate 50 MG 1 tablet as needed Orally Once a day for 30 days 02/25/2024 Active Farxiga 10 MG 1 tablet Orally Once a day for 90 days 02/25/2024 Active FreeStyle Lite Test - check blood sugar 2 times a day for 90 days 11/08/2023 Active [facility] B-12 500 MCG TAKE 1 TABLET BY MOUTH EVERY DAY FOR 30 DAYS for 90 Active amLODIPine Besylate 2.5 MG TAKE 1 TABLET BY MOUTH EVERY DAY FOR 30 DAYS for 90 Not-Taking Blood Pressure Kit - With large adult cuff. Dx: I10 for 30 days 11/15/2022 Active Carvedilol 25 MG TAKE 1 TABLET BY MOUTH TWICE A DAY WITH FOOD for 90 Not-Taking PROzac 20 MG 1 capsule Orally Once a day for 30 days dose has been increased 08/19/2024 Active hydrALAZINE HCl 25 MG 1 tablet with food Orally 2 times a day for 90 days 08/05/2023 Not-Taking Farxiga 5 MG 1 tablet Orally Once a day for 30 days 08/05/2023 Not-Taking Lantus SoloStar 100 UNIT/ML 20 units Subcutaneous once a day for 30 days dose is increased Active OneTouch Lancets check blood sugars 3 times a day DX: E08.40 for 90 days 09/23/2023 Active Cymbalta 60 MG 1 capsule Orally Twice a day for 90 days Not-Taking OneTouch Verio - check blood sugars 3 times a day DX: E08.40 for 90 days 09/23/2023 Active FreeStyle Lite - as directed use to test blood sugars for 30 days 03/03/2020 Not-Taking FreeStyle Lancets - as directed use to test blood sugars 3 times a day for 90 days 03/03/2020 Active Effexor XR 75 MG 1 capsule with food Orally Once a day 04/03/2023 Not-Taking Freestyle Test Strips as directed use to check blood sugars 3 times a day for 90 days 03/03/2020 Active Ozempic (0.25 or 0.5 MG/DOSE) 2 MG/3ML 0.25 mg Subcutaneous Once weekly for 30 days 06/08/2024 Not-Taking Atorvastatin Calcium 80 MG 1 tablet Orally Once a day for 30 days dose has been increased 08/19/2024 Active Immunizations Vaccine Route Administration Date Status Comme nts COVID Fanta Unknown 11/02/2020 Administered COVID Moderna Unknown 03/11/2021 Administered Fluzone QD IM Intramuscular 01/24/2023 Administered Social History Tobacco Use: Social History Observation Description Date Details (start date - stop date) Never Smoker NA - NA Tobacco Use/Smoking Question Answer Notes Are you a nonsmoker Alcohol Screen (Audit-C) Question Answer Notes Did you have a drink containing alcohol in the p ast year? No Points 0 Interpretation Negative Problems Problem Type SNOMED Code ICD Code Onset Dates Problem Status W/U Status Risk Notes Problem Tinea pedis (2571628) Tinea pedis (B35.3) Active confirmed Problem Pernicious anemia (60656755) Vitamin B12 deficiency anemia due to intrinsic factor deficiency (D51.0) Active confirmed Problem Diabetic neuropathy (619407436) Diabetes mellitus due to underlying condition with diabetic neuropathy, unspecified (E08.40) Active confirmed Problem Secondary diabetes mellitus (6307229) Diabetes mellitus due to underlying condition with hyperglycemia (E08.65) Active confirmed Problem Morbid obesity (disorder) (413907243) Morbid (severe) obesity due to excess calories (E66.01) Active confirmed Problem Mild recurrent major depression (45774514) Major depressive disorder, recurrent, mild (F33.0) Active confirmed Problem Anxiety disorder (566871954) Anxiety disorder, unspecified (F41.9) Active confirmed Problem Male erectile disorder (008238373) Male erectile disorder (F52.21) Active confirmed Problem Transient ischemic attack (328782670) 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) Active confirmed Problem Insomnia (102062984) Insomnia, unspecified (G47.00) Active confirmed Problem Obstructive sleep apnea syndrome (disorder) (39911163) Obstructive sleep apnea (adult) (pediatric) (G47.33) Active confirmed Problem 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, unspecified (G60.9) Active confirmed Problem Arterial retinal branch occlusion (81779390) Retinal artery branch occlusion, right eye (H34.231) Active confirmed Problem Essential hypertension (56907767) Essential (primary) hypertension (I10) Active confirmed Problem Pulmonary Embolism (71531068) Other pulmonary embolism without acute cor pulmonale (I26.99) Active confirmed Problem Chronic systolic heart failure (997564961) Chronic systolic (congestive) heart failure (I50.22) Active confirmed Problem Nontraumatic intracerebral hemorrhage (293428313569026) Nontraumatic intracerebral hemorrhage, unspecified (I61.9) Active confirmed Problem Cerebral infarction (116295070) Cerebral infarction, unspecified (I63.9) Active confirmed Problem Erectile dysfunction (disorder) (494498364) Male erectile dysfunction, unspecified (N52.9) Active confirmed Problem Edema (32935475) Edema, unspecified (R60.9) Active confirmed Problem Solitary pulmonary nodule (126495249) Solitary pulmonary nodule (R91.1) Active confirmed Problem History of pulmonary embolus (748969211) Personal history of pulmonary embolism (Z86.711) Active confirmed Problem Hyperlipidemia (52475655) Hyperlipidemia, unspecified (E78.5) Active confirmed Problem Mononeuropathy of lower limb (195112570) Unspecified mononeuropathy of bilateral lower limbs (G57.93) Active confirmed Problem Neuropathy (704037012) Neuropathy (G62.9) Active confirmed Vital Signs Heart Rate 96 /min 08/19/2024 Temperature 96.6 degrees Fahrenheit 08/19/2024 Blood pressure diastolic 100 mm Hg 08/19/2024 Oximetry 98 % 08/19/2024 Height 66.61 in 08/19/2024 Blood pressure systolic 152 mm Hg 08/19/2024 Weight 332 lbs 08/19/2024 BMI 52.6 kg/m2 08/19/2024 Encounters Encounter Location Date Provider Diagnosis [address] [address] 02/21/[address] [address] 03/03[facility]2024 [facility] [address] [address] [facility] Essential (primary) hypertension I10 ; Hospital discharge follow-up Z09 ; Diabetes mellitus due to underlying condition with diabetic neuropathy, unspecified E08.40 ; Cerebral infarction, unspecified I63.9 ; Anxiety disorder, unspecified F41.9 and Obstructive sleep apnea (adult) (pediatric) G47.[address] [address] 11/21/2023 TORRI MOCK Essential (primary) hypertension I10 ; Diabetes mellitus due to underlying condition with diabetic neuropathy, unspecified E08.40 ; Cerebral infarction, unspecified I63.9 ; Other pulmonary embolism without acute cor pulmonale I26.99 ; Anxiety disorder, unspecified F41.9 and Hyperlipidemia, unspecified E78.[address] [place] [address] 02/25/2024 Ghadeer Mazloum Essential (primary) hypertension I10 ; Diabetes mellitus due to underlying condition with diabetic neuropathy, unspecified E08.40 ; Cerebral infarction, unspecified I63.9 ; Other pulmonary embolism without acute cor pulmonale I26.99 ; Anxiety disorder, unspecified F41.9 ; Hyperlipidemia, unspecified E78.5 and Male erectile dysfunction, unspecified N52.[address] [place] [address] 06/09/2024 Ghadeer Mazloum Diabetes mellitus du e to underlying condition with diabetic neuropathy, unspecified E08.40 ; Hospital discharge follow-up Z09 ; Essential (primary) hypertension I10 ; Cerebral infarction, unspecified I63.9 ; Other pulmonary embolism without acute cor pulmonale I26.99 ; Anxiety disorder, unspecified F41.9 ; Hyperlipidemia, unspecified E78.5 and Male erectile dysfunction, unspecified N52.[address] [place] [address] 06/26/2024 Ghadeer Mazloum Essential (primary) hypertension I10 ; Diabetes mellitus due to underlying condition with diabetic neuropathy, unspecified E08.40 and Male erectile disorder F52.[address] [place] [address] 07/16/2024 Ghadeer Mazloum Essential (primary) hypertension I10 [address] [place] [address] 08/19/2024 Aroosa Alam Diabetes mellitus du e to underlying condition with hyperglycemia E08.65 ; Hyperlipidemia, unspecified E78.5 ; Depression, unspecified F32.A and Diabetes mellitus due to underlying condition with diabetic neuropathy, unspecified E08.[address] [place] [address] 08/29/2023 TORRI MOCK [address] [place] [address] 09/20/2023 [facility] [address] [place] [address] 09/23/2023 [facility] [address] [place] [address] 11/08/2023 [facility] [address] [place] [address] 11/08/2023 [facility] [address] [place] [address] 11/21/2023 [facility] [address] [place] [address] 11/22/2023 [facility] [address] [place] [address] 12/31/2023 [facility] [address] [place] [address] 02/26/2024 [facility] Diabetes mellitus du e to underlying condition with diabetic neuropathy, unspecified E08.40 [facility] [address] [place] [address] 06/26/2024 [facility] [address] [place] [address] 07/16/2024 [facility] Frequency of micturition R35.0 [facility] [address] [place] [address] 07/30/2024 [facility] Neuropathy G62.9 [facility] [address] [place] [address] 07/30/2024 Ghadeer Mazloum [facility] [address] [place] [address] 08/21/2024 [facility] Assessments Encounter Date Diagnosis (ICD Code) Assessment Notes Treatment Notes Treatment Clinical Notes Section Notes 08/19/2024 Diabetes mellitus due to underlying condition with hyperglycemia (ICD-10 - E08.65) 53-year-old gentleman with morbid obesity, hypertension hyperlipidemia insulin-dependent diabetes mellitus is here today for abnormal lab check and further recommendations. Hypertension blood pressure is elevated today 152/100 patient has not been taking his medications which includes enterostomal coact and diuretic therapy. He reports he was feeling well and just stopped all his medications. We discussed at length about the importance of medications and the consequences of not taking it. He understands and has refilled all his prescription would be willing to restart all of them. We discussed about basic metabolic panel which was normal but he has heavy proteinuria indicating uncontrolled hypertension and diabetes Hyperlipidemia worsened total cholesterol is 248 triglycerides are 489 previously his triglycerides were 173. Patient again is on atorvastatin 40 mg daily will increase it to 80 mg compliance is very important as discussed with patient. Complete dietary restriction and no carbohydrate and sweetened drinks Insulin-dependent diabetes mellitus uncontrolled, HPV and C's worsened 12.6 due to noncompliance with diet and medications he is not taking Trulicity. We will increase Lantus from 15-20 units at night we will add Humalog correction dose before meals and daily at bedtime at 8 units continue with Metformin and for seeing the. We will follow-up in 4 weeks patient will check his fasting blood sugars and record the numbers according to that we will further adjust insulin and Humalog. anxiety and depression he has been on Prozac 10 mg, he still feels very depressed, we will adjust the dose to 20 mg and in 6 weeks we will follow up if this has to be further increased. He has a psychiatrist and a counselor that he follows with All medications were refilled plan was discussed in detail with the patient and he agrees 08/19/2024 Hyperlipidemia, unspecified (ICD-10 - E78.5) 53-year-old gentleman with morbid obesity, hypertension hyperlipidemia insulin-dependent diabetes mellitus is here today for abnormal lab check and further recommendations. Hypertension blood pressure is elevated today 152/100 patient has not been taking his medications which includes enterostomal coact and diuretic therapy. He reports he was feeling well and just stopped all his medications. We discussed at length about the importance of medications and the consequences of not taking it. He understands and has refilled all his prescription would be willing to restart all of them. We discussed about basic metabolic panel which was normal but he has heavy proteinuria indicating uncontrolled hypertension and diabetes Hyperlipidemia worsened total cholesterol is 248 triglycerides are 489 previously his triglycerides were 173. Patient again is on atorvastatin 40 mg daily will increase it to 80 mg compliance is very important as discussed with patient. Complete dietary restriction and no carbohydrate and sweetened drinks Insulin-dependent diabetes mellitus uncontrolled, HPV and C's worsened 12.6 due to noncompliance with diet and medications he is not taking Trulicity. We will increase Lantus from 15-20 units at night we will add Humalog correction dose before meals and daily at bedtime at 8 units continue with Metformin and for seeing the. We will follow-up in 4 weeks patient will check his fasting blood sugars and record the numbers according to that we will further adjust insulin and Humalog. anxiety and depression he has been on Prozac 10 mg, he still feels very depressed, we will adjust the dose to 20 mg and in 6 weeks we will follow up if this has to be further increased. He has a psychiatrist and a counselor that he follows with All medications were refilled plan was discussed in detail with the patient and he agrees 06/26/2024 Essential (primary) hypertension (ICD-10 - I10) [...] the patient but was available upon request 07/16/2024 Essential (primary) hypertension (ICD-10 - I10) [...] the patient but was available upon request 07/16/2024 Frequency of micturition (ICD-10 - R35.0) 07/30/2024 Neuropathy (ICD-10 - G62.9) 09/02/2023 Essential (primary) hypertension (ICD-10 - I10) Rio is a 52-year-old gentleman with CHF, hypertension, hyperlipidemia, generalized anxiety disorder and DM2 here for follow up. Plan is as follows: Hypertension with heart disease. -Blood pressure significantly improved at this point. Continue hydralazine 25 MG twice a day, Carvedilol 25 MG BID and amlodipine 5 mg daily. Monitor blood pressure at home. Cerebral infarction. -There is no residual deficits at this point. He is currently on warfarin and aspirin. He follows up with neurologist. Type II diabetes mellitus with neuropathy. -He is on right medications. Hyperlipidemia. -Continue Atorvastatin 10 MG at night. CHF. -He does not appear to be in volume overload. He is on right medications. Continue Farxiga 5MG. Anxiety disorder/depressio n. -Continue Prozac 10 MG. Continue current regimen. He is seeing a therapist once a week and he also sees psychiatry. He is not suicidal or homicidal. Polyneuropathy. -Continue Topiramate 100 MG. He uses a cane to walk. Pulmonary embolism. -He is on Warfarin and his INR is being monitored by Coumadin clinic at [facility]. TRAM. -He uses CPAP machine and no daytime sleepiness. Insomnia. - Continue trazodone 100 MG at night. General health concerns discussed with patient. Patient seen and examined with PA. Agree with the above mentioned assessment and plan 09/02/2023 Hospital discharge follow-up (ICD-10 - Z09) Rio is a 52-year-old gentleman with CHF, hypertension, hyperlipidemia, generalized anxiety disorder and DM2 here for follow up. Plan is as follows: Hypertension with heart disease. -Blood pressure significantly improved at this point. Continue hydralazine 25 MG twice a day, Carvedilol 25 MG BID and amlodipine 5 mg daily. Monitor blood pressure at home. Cerebral infarction. -There is no residual deficits at this point. He is currently on warfarin and aspirin. He follows up with neurologist. Type II diabetes mellitus with neuropathy. -He is on right medications. Hyperlipidemia. -Continue Atorvastatin 10 MG at night. CHF. -He does not appear to be in volume overload. He is on right medications. Continue Farxiga 5MG. Anxiety disorder/depressio n. -Continue Prozac 10 MG. Continue current regimen. He is seeing a therapist once a week and he also sees psychiatry. He is not suicidal or homicidal. Polyneuropathy. -Continue Topiramate 100 MG. He uses a cane to walk. Pulmonary embolism. -He is on Warfarin and his INR is being monitored by Coumadin clinic at [facility]. TRAM. -He uses CPAP machine and no daytime sleepiness. Insomnia. - Continue trazodone 100 MG at night. General health concerns discussed with patient. Patient seen and examined with PA. Agree with the above mentioned assessment and plan 11/21/2023 Diabetes mellitus due to underlying condition with diabetic neuropathy, unspecified (ICD-10 - E08.40) Rio is a 52-year-old gentleman with CHF, hypertension, hyperlipidemia, generalized anxiety disorder and DM2 here for follow up. Plan is as follows: Hypertension with heart disease. His blood pressure is running high in the office today. Cut back on sodium intake. Advised appropriate hydration, cardio exercises and weight loss. His blood pressure was running high and repeat blood pressure was normal. . Continue hydralazine 25 MG twice a day, Carvedilol 25 MG BID and amlodipine 5 mg daily. Cerebral infarction. There is no residual deficits at this point. He is currently on warfarin and aspirin. He follows up with neurologist. Type II diabetes mellitus with neuropathy. He is on right medications. He has seen an garment inspector for the past year. Foot care discussed. check A1c. Hyperlipidemia. Continue Atorvastatin 10 MG at night. CHF. He does not appear to be in volume overload. He is on right medications. Continue Farxiga 5MG and Entresto and advised to weigh himself every day and avoid sodium. Anxiety disorder/depressio n. Continue Prozac 10 MG. Continue current regimen. He is seeing a therapist once a week and he also sees psychiatry. He is not suicidal or homicidal. Polyneuropathy. Continue Topiramate 100 MG. He uses a cane to walk. he is also given a prescription for lidocaine cream Pulmonary embolism. He is on Warfarin and his INR is being monitored by Coumadin clinic at [facility]. TRAM. He uses CPAP machine and no daytime sleepiness. Insomnia. Continue trazodone 100 MG at night. General health concerns discussed with patient. Scribe services used to formulate this note under HIPAA compliance and under [place] law mandated for scribe services. Patient aware of service. Verbal consent and written consent taken from the patient. Patient understands and verbalizes understanding of the scribes services and all questions answered regarding scribes services. Patient agrees to use of scribes services. 11/21/2023 Essential (primary) hypertension (ICD-10 - I10) Rio is a 52-year-old gentleman with CHF, hypertension, hyperlipidemia, generalized anxiety disorder and DM2 here for follow up. Plan is as follows: Hypertension with heart disease. His blood pressure is running high in the office today. Cut back on sodium intake. Advised appropriate hydration, cardio exercises and weight loss. His blood pressure was running high and repeat blood pressure was normal. . Continue hydralazine 25 MG twice a day, Carvedilol 25 MG BID and amlodipine 5 mg daily. Cerebral infarction. There is no residual deficits at this point. He is currently on warfarin and aspirin. He follows up with neurologist. Type II diabetes mellitus with neuropathy. He is on right medications. He has seen an garment inspector for the past year. Foot care discussed. check A1c. Hyperlipidemia. Continue Atorvastatin 10 MG at night. CHF. He does not appear to be in volume overload. He is on right medications. Continue Farxiga 5MG and Entresto and advised to weigh himself every day and avoid sodium. Anxiety disorder/depressio n. Continue Prozac 10 MG. Continue current regimen. He is seeing a therapist once a week and he also sees psychiatry. He is not suicidal or homicidal. Polyneuropathy. Continue Topiramate 100 MG. He uses a cane to walk. he is also given a prescription for lidocaine cream Pulmonary embolism. He is on Warfarin and his INR is being monitored by Coumadin clinic at [facility]. TRAM. He uses CPAP machine and no daytime sleepiness. Insomnia. Continue trazodone 100 MG at night. General health concerns discussed with patient. Scribe services used to formulate this note under HIPAA compliance and under [place] law mandated for scribe services. Patient aware of service. Verbal consent and written consent taken from the patient. Patient understands and verbalizes understanding of the scribes services and all questions answered regarding scribes services. Patient agrees to use of scribes services. 02/25/2024 Diabetes mellitus due to underlying condition with diabetic neuropathy, unspecified (ICD-10 - E08.40) Rio is a 53-year-old gentleman with CHF, hypertension, hyperlipidemia, generalized anxiety disorder and DM2 here for follow up. Plan is as follows: Hypertension with heart disease. -His blood pressure is running high in the office today. Cut back on sodium intake. Advised appropriate hydration, cardio exercises and weight loss. His blood pressure was running high and repeat blood pressure was still high. Increased amlodipine to 7.5mg. Continue hydralazine 25 MG twice a day, Carvedilol 25 MG BID. we will check BP in 1 week. -Check comp Cerebral infarction. -There is no residual deficits at this point. He is currently on warfarin and aspirin. He follows up with neurologist. Type II diabetes mellitus with neuropathy. - A1c increased from 7.0 to 9.3. States that he has been compliant with medications. I have increased Farxiga to 10mg, we will also start patient on Mounjaro. He is on right medications. He has seen an garment inspector for the past year. Foot care discussed. check A1c. Hyperlipidemia. Continue Atorvastatin 10 MG at night. CHF. -He does not [...] is being monitored by Coumadin clinic at [facility]. TRAM. -He uses CPAP machine and no daytime sleepiness. Insomnia. -Continue trazodone 100 MG at night. General health concerns discussed with patient. I have rendered the services for this patient under direct supervision of Dr. Mock, who did not see the patient but was available upon request 02/25/2024 Essential (primary) hypertension (ICD-10 - I10) Rio is a 53-year-old gentleman with CHF, hypertension, hyperlipidemia, generalized anxiety disorder and DM2 here for follow up. Plan is as follows: Hypertension with heart disease. -His blood pressure is running high in the office today. Cut back on sodium intake. Advised appropriate hydration, cardio exercises and weight loss. His blood pressure was running high and repeat blood pressure was still high. Increased amlodipine to 7.5mg. Continue hydralazine 25 MG twice a day, Carvedilol 25 MG BID. we will check BP in 1 week. -Check comp Cerebral infarction. -There is no residual deficits at this point. He is currently on warfarin and aspirin. He follows up with neurologist. Type II diabetes mellitus with neuropathy. - A1c increased from 7.0 to 9.3. States that he has been compliant with medications. I have increased Farxiga to 10mg, we will also start patient on Mounjaro. He is on right medications. He has seen an garment inspector for the past year. Foot care discussed. check A1c. Hyperlipidemia. Continue Atorvastatin 10 MG at night. CHF. -He does not [...] is being monitored by Coumadin clinic at [facility]. TRAM. -He uses CPAP machine and no daytime sleepiness. Insomnia. -Continue trazodone 100 MG at night. General health concerns discussed with patient. I have rendered the services for this patient under direct supervision of Dr. Mock, who did not see the patient but was available upon request 02/26/2024 Diabetes mellitus due to underlying condition with diabetic neuropathy, unspecified (ICD-10 - E08.40) 06/09/2024 Diabetes mellitus due to underlying condition [...] on right medications. He has seen an garment inspector for the past year. Foot care discussed. [...] is being monitored by Coumadin clinic at [facility]. TRAM. -He uses CPAP machine and [...] on right medications. He has seen an garment inspector for the past year. Foot care discussed. [...] is being monitored by Coumadin clinic at [facility]. TRAM. -He uses CPAP machine and [...] on right medications. He has seen an garment inspector for the past year. Foot care discussed. [...] is being monitored by Coumadin clinic at [facility]. TRAM. -He uses CPAP machine and no daytime sleepiness. Insomnia. -Continue trazodone 100 MG at night. General health concerns discussed with patient. I have rendered the services for this patient under direct supervision of Dr. Mock, who did not see the patient but was available upon request 02/25/2024 Cerebral infarction, unspecified (ICD-10 - I63.9) Rio is a 53-year-old gentleman with CHF, hypertension, hyperlipidemia, generalized anxiety disorder and DM2 here for follow up. Plan is as follows: Hypertension with heart disease. -His blood pressure is running high in the office today. Cut back on sodium intake. Advised appropriate hydration, cardio exercises and weight loss. His blood pressure was running high and repeat blood pressure was still high. Increased amlodipine to 7.5mg. Continue hydralazine 25 MG twice a day, Carvedilol 25 MG BID. we will check BP in 1 week. -Check comp Cerebral infarction. -There is no residual deficits at this point. He is currently on warfarin and aspirin. He follows up with neurologist. Type II diabetes mellitus with neuropathy. - A1c increased from 7.0 to 9.3. States that he has been compliant with medications. I have increased Farxiga to 10mg, we will also start patient on Mounjaro. He is on right medications. He has seen an garment inspector for the past year. Foot care discussed. check A1c. Hyperlipidemia. Continue Atorvastatin 10 MG at night. CHF. -He does not [...] is being monitored by Coumadin clinic at [facility]. TRAM. -He uses CPAP machine and no daytime sleepiness. Insomnia. -Continue trazodone 100 MG at night. General health concerns discussed with patient. I have rendered the services for this patient under direct supervision of Dr. Mock, who did not see the patient but was available upon request 11/21/2023 Cerebral infarction, unspecified (ICD-10 - I63.9) Rio is a 52-year-old gentleman with CHF, hypertension, hyperlipidemia, generalized anxiety disorder and DM2 here for follow up. Plan is as follows: Hypertension with heart disease. His blood pressure is running high in the office today. Cut back on sodium intake. Advised appropriate hydration, cardio exercises and weight loss. His blood pressure was running high and repeat blood pressure was normal. . Continue hydralazine 25 MG twice a day, Carvedilol 25 MG BID and amlodipine 5 mg daily. Cerebral infarction. There is no residual deficits at this point. He is currently on warfarin and aspirin. He follows up with neurologist. Type II diabetes mellitus with neuropathy. He is on right medications. He has seen an garment inspector for the past year. Foot care discussed. check A1c. Hyperlipidemia. Continue Atorvastatin 10 MG at night. CHF. He does not appear to be in volume overload. He is on right medications. Continue Farxiga 5MG and Entresto and advised to weigh himself every day and avoid sodium. Anxiety disorder/depressio n. Continue Prozac 10 MG. Continue current regimen. He is seeing a therapist once a week and he also sees psychiatry. He is not suicidal or homicidal. Polyneuropathy. Continue Topiramate 100 MG. He uses a cane to walk. he is also given a prescription for lidocaine cream Pulmonary embolism. He is on Warfarin and his INR is being monitored by Coumadin clinic at [facility]. TRAM. He uses CPAP machine and no daytime sleepiness. Insomnia. Continue trazodone 100 MG at night. General health concerns discussed with patient. Scribe services used to formulate this note under HIPAA compliance and under [place] law mandated for scribe services. Patient aware of service. Verbal consent and written consent taken from the patient. Patient understands and verbalizes understanding of the scribes services and all questions answered regarding scribes services. Patient agrees to use of scribes services. 09/02/2023 Diabetes mellitus due to underlying condition with diabetic neuropathy, unspecified (ICD-10 - E08.40) Rio is a 52-year-old gentleman with CHF, hypertension, hyperlipidemia, generalized anxiety disorder and DM2 here for follow up. Plan is as follows: Hypertension with heart disease. -Blood pressure significantly improved at this point. Continue hydralazine 25 MG twice a day, Carvedilol 25 MG BID and amlodipine 5 mg daily. Monitor blood pressure at home. Cerebral infarction. -There is no residual deficits at this point. He is currently on warfarin and aspirin. He follows up with neurologist. Type II diabetes mellitus with neuropathy. -He is on right medications. Hyperlipidemia. -Continue Atorvastatin 10 MG at night. CHF. -He does not appear to be in volume overload. He is on right medications. Continue Farxiga 5MG. Anxiety disorder/depressio n. -Continue Prozac 10 MG. Continue current regimen. He is seeing a therapist once a week and he also sees psychiatry. He is not suicidal or homicidal. Polyneuropathy. -Continue Topiramate 100 MG. He uses a cane to walk. Pulmonary embolism. -He is on Warfarin and his INR is being monitored by Coumadin clinic at [facility]. TARM. -He uses CPAP machine and no daytime sleepiness. Insomnia. - Continue trazodone 100 MG at night. General health concerns discussed with patient. Patient seen and examined with PA. Agree with the above mentioned assessment and plan 08/19/2024 Depression, unspecified (ICD-10 - F32.A) 53-year-old gentleman with morbid obesity, hypertension hyperlipidemia insulin-dependent diabetes mellitus is here today for abnormal lab check and further recommendations. Hypertension blood pressure is elevated today 152/100 patient has not been taking his medications which includes enterostomal coact and diuretic therapy. He reports he was feeling well and just stopped all his medications. We discussed at length about the importance of medications and the consequences of not taking it. He understands and has refilled all his prescription would be willing to restart all of them. We discussed about basic metabolic panel which was normal but he has heavy proteinuria indicating uncontrolled hypertension and diabetes Hyperlipidemia worsened total cholesterol is 248 triglycerides are 489 previously his triglycerides were 173. Patient again is on atorvastatin 40 mg daily will increase it to 80 mg compliance is very important as discussed with patient. Complete dietary restriction and no carbohydrate and sweetened drinks Insulin-dependent diabetes mellitus uncontrolled, HPV and C's worsened 12.6 due to noncompliance with diet and medications he is not taking Trulicity. We will increase Lantus from 15-20 units at night we will add Humalog correction dose before meals and daily at bedtime at 8 units continue with Metformin and for seeing the. We will follow-up in 4 weeks patient will check his fasting blood sugars and record the numbers according to that we will further adjust insulin and Humalog. anxiety and depression he has been on Prozac 10 mg, he still feels very depressed, we will adjust the dose to 20 mg and in 6 weeks we will follow up if this has to be further increased. He has a psychiatrist and a counselor that he follows with All medications were refilled plan was discussed in detail with the patient and he agrees 08/19/2024 Diabetes mellitus due to underlying condition with diabetic neuropathy, unspecified (ICD-10 - E08.40) 53-year-old gentleman with morbid obesity, hypertension hyperlipidemia insulin-dependent diabetes mellitus is here today for abnormal lab check and further recommendations. Hypertension blood pressure is elevated today 152/100 patient has not been taking his medications which includes enterostomal coact and diuretic therapy. He reports he was feeling well and just stopped all his medications. We discussed at length about the importance of medications and the consequences of not taking it. He understands and has refilled all his prescription would be willing to restart all of them. We discussed about basic metabolic panel which was normal but he has heavy proteinuria indicating uncontrolled hypertension and diabetes Hyperlipidemia worsened total cholesterol is 248 triglycerides are 489 previously his triglycerides were 173. Patient again is on atorvastatin 40 mg daily will increase it to 80 mg compliance is very important as discussed with patient. Complete dietary restriction and no carbohydrate and sweetened drinks Insulin-dependent diabetes mellitus uncontrolled, HPV and C's worsened 12.6 due to noncompliance with diet and medications he is not taking Trulicity. We will increase Lantus from 15-20 units at night we will add Humalog correction dose before meals and daily at bedtime at 8 units continue with Metformin and for seeing the. We will follow-up in 4 weeks patient will check his fasting blood sugars and record the numbers according to that we will further adjust insulin and Humalog. anxiety and depression he has been on Prozac 10 mg, he still feels very depressed, we will adjust the dose to 20 mg and in 6 weeks we will follow up if this has to be further increased. He has a psychiatrist and a counselor that he follows with All medications were refilled plan was discussed in detail with the patient and he agrees 11/21/2023 Other pulmonary embolism without acute cor pulmonale (ICD-10 - I26.99) Rio is a 52-year-old gentleman with CHF, hypertension, hyperlipidemia, generalized anxiety disorder and DM2 here for follow up. Plan is as follows: Hypertension with heart disease. His blood pressure is running high in the office today. Cut back on sodium intake. Advised appropriate hydration, cardio exercises and weight loss. His blood pressure was running high and repeat blood pressure was normal. . Continue hydralazine 25 MG twice a day, Carvedilol 25 MG BID and amlodipine 5 mg daily. Cerebral infarction. There is no residual deficits at this point. He is currently on warfarin and aspirin. He follows up with neurologist. Type II diabetes mellitus with neuropathy. He is on right medications. He has seen an garment inspector for the past year. Foot care discussed. check A1c. Hyperlipidemia. Continue Atorvastatin 10 MG at night. CHF. He does not appear to be in volume overload. He is on right medications. Continue Farxiga 5MG and Entresto and advised to weigh himself every day and avoid sodium. Anxiety disorder/depressio n. Continue Prozac 10 MG. Continue current regimen. He is seeing a therapist once a week and he also sees psychiatry. He is not suicidal or homicidal. Polyneuropathy. Continue Topiramate 100 MG. He uses a cane to walk. he is also given a prescription for lidocaine cream Pulmonary embolism. He is on Warfarin and his INR is being monitored by Coumadin clinic at [facility]. TRAM. He uses CPAP machine and no daytime sleepiness. Insomnia. Continue trazodone 100 MG at night. General health concerns discussed with patient. Scribe services used to formulate this note under HIPAA compliance and under [place] law mandated for scribe services. Patient aware of service. Verbal consent and written consent taken from the patient. Patient understands and verbalizes understanding of the scribes services and all questions answered regarding scribes services. Patient agrees to use of scribes services. 09/02/2023 Cerebral infarction, unspecified (ICD-10 - I63.9) Rio is a 52-year-old gentleman with CHF, hypertension, hyperlipidemia, generalized anxiety disorder and DM2 here for follow up. Plan is as follows: Hypertension with heart disease. -Blood pressure significantly improved at this point. Continue hydralazine 25 MG twice a day, Carvedilol 25 MG BID and amlodipine 5 mg daily. Monitor blood pressure at home. Cerebral infarction. -There is no residual deficits at this point. He is currently on warfarin and aspirin. He follows up with neurologist. Type II diabetes mellitus with neuropathy. -He is on right medications. Hyperlipidemia. -Continue Atorvastatin 10 MG at night. CHF. -He does not appear to be in volume overload. He is on right medications. Continue Farxiga 5MG. Anxiety disorder/depressio n. -Continue Prozac 10 MG. Continue current regimen. He is seeing a therapist once a week and he also sees psychiatry. He is not suicidal or homicidal. Polyneuropathy. -Continue Topiramate 100 MG. He uses a cane to walk. Pulmonary embolism. -He is on Warfarin and his INR is being monitored by Coumadin clinic at [facility]. TRAM. -He uses CPAP machine and no daytime sleepiness. Insomnia. - Continue trazodone 100 MG at night. General health concerns discussed with patient. Patient seen and examined with PA. Agree with the above mentioned assessment and plan 02/25/2024 Other pulmonary embolism without acute cor pulmonale (ICD-10 - I26.99) Rio is a 53-year-old gentleman with CHF, hypertension, hyperlipidemia, generalized anxiety disorder and DM2 here for follow up. Plan is as follows: Hypertension with heart disease. -His blood pressure is running high in the office today. Cut back on sodium intake. Advised appropriate hydration, cardio exercises and weight loss. His blood pressure was running high and repeat blood pressure was still high. Increased amlodipine to 7.5mg. Continue hydralazine 25 MG twice a day, Carvedilol 25 MG BID. we will check BP in 1 week. -Check comp Cerebral infarction. -There is no residual deficits at this point. He is currently on warfarin and aspirin. He follows up with neurologist. Type II diabetes mellitus with neuropathy. - A1c increased from 7.0 to 9.3. States that he has been compliant with medications. I have increased Farxiga to 10mg, we will also start patient on Mounjaro. He is on right medications. He has seen an garment inspector for the past year. Foot care discussed. check A1c. Hyperlipidemia. Continue Atorvastatin 10 MG at night. CHF. -He does not [...] is being monitored by Coumadin clinic at [facility]. TRAM. -He uses CPAP machine and [...] on right medications. He has seen an garment inspector for the past year. Foot care discussed. [...] is being monitored by Coumadin clinic at [facility]. TRAM. -He uses CPAP machine and [...] on right medications. He has seen an garment inspector for the past year. Foot care discussed. [...] is being monitored by Coumadin clinic at [facility]. TRAM. -He uses CPAP machine and no daytime sleepiness. Insomnia. -Continue trazodone 100 MG at night. General health concerns discussed with patient. I have rendered the services for this patient under direct supervision of Dr. Mock, who did not see the patient but was available upon request 02/25/2024 Anxiety disorder, unspecified (ICD-10 - F41.9) Rio is a 53-year-old gentleman with CHF, hypertension, hyperlipidemia, generalized anxiety disorder and DM2 here for follow up. Plan is as follows: Hypertension with heart disease. -His blood pressure is running high in the office today. Cut back on sodium intake. Advised appropriate hydration, cardio exercises and weight loss. His blood pressure was running high and repeat blood pressure was still high. Increased amlodipine to 7.5mg. Continue hydralazine 25 MG twice a day, Carvedilol 25 MG BID. we will check BP in 1 week. -Check comp Cerebral infarction. -There is no residual deficits at this point. He is currently on warfarin and aspirin. He follows up with neurologist. Type II diabetes mellitus with neuropathy. - A1c increased from 7.0 to 9.3. States that he has been compliant with medications. I have increased Farxiga to 10mg, we will also start patient on Mounjaro. He is on right medications. He has seen an garment inspector for the past year. Foot care discussed. check A1c. Hyperlipidemia. Continue Atorvastatin 10 MG at night. CHF. -He does not [...] is being monitored by Coumadin clinic at [facility]. TRAM. -He uses CPAP machine and no daytime sleepiness. Insomnia. -Continue trazodone 100 MG at night. General health concerns discussed with patient. I have rendered the services for this patient under direct supervision of Dr. Mock, who did not see the patient but was available upon request 11/21/2023 Anxiety disorder, unspecified (ICD-10 - F41.9) Rio is a 52-year-old gentleman with CHF, hypertension, hyperlipidemia, generalized anxiety disorder and DM2 here for follow up. Plan is as follows: Hypertension with heart disease. His blood pressure is running high in the office today. Cut back on sodium intake. Advised appropriate hydration, cardio exercises and weight loss. His blood pressure was running high and repeat blood pressure was normal. . Continue hydralazine 25 MG twice a day, Carvedilol 25 MG BID and amlodipine 5 mg daily. Cerebral infarction. There is no residual deficits at this point. He is currently on warfarin and aspirin. He follows up with neurologist. Type II diabetes mellitus with neuropathy. He is on right medications. He has seen an garment inspector for the past year. Foot care discussed. check A1c. Hyperlipidemia. Continue Atorvastatin 10 MG at night. CHF. He does not appear to be in volume overload. He is on right medications. Continue Farxiga 5MG and Entresto and advised to weigh himself every day and avoid sodium. Anxiety disorder/depressio n. Continue Prozac 10 MG. Continue current regimen. He is seeing a therapist once a week and he also sees psychiatry. He is not suicidal or homicidal. Polyneuropathy. Continue Topiramate 100 MG. He uses a cane to walk. he is also given a prescription for lidocaine cream Pulmonary embolism. He is on Warfarin and his INR is being monitored by Coumadin clinic at [facility]. TRAM. He uses CPAP machine and no daytime sleepiness. Insomnia. Continue trazodone 100 MG at night. General health concerns discussed with patient. Scribe services used to formulate this note under HIPAA compliance and under [place] law mandated for scribe services. Patient aware of service. Verbal consent and written consent taken from the patient. Patient understands and verbalizes understanding of the scribes services and all questions answered regarding scribes services. Patient agrees to use of scribes services. 09/02/2023 Anxiety disorder, unspecified (ICD-10 - F41.9) Rio is a 52-year-old gentleman with CHF, hypertension, hyperlipidemia, generalized anxiety disorder and DM2 here for follow up. Plan is as follows: Hypertension with heart disease. -Blood pressure significantly improved at this point. Continue hydralazine 25 MG twice a day, Carvedilol 25 MG BID and amlodipine 5 mg daily. Monitor blood pressure at home. Cerebral infarction. -There is no residual deficits at this point. He is currently on warfarin and aspirin. He follows up with neurologist. Type II diabetes mellitus with neuropathy. -He is on right medications. Hyperlipidemia. -Continue Atorvastatin 10 MG at night. CHF. -He does not appear to be in volume overload. He is on right medications. Continue Farxiga 5MG. Anxiety disorder/depressio n. -Continue Prozac 10 MG. Continue current regimen. He is seeing a therapist once a week and he also sees psychiatry. He is not suicidal or homicidal. Polyneuropathy. -Continue Topiramate 100 MG. He uses a cane to walk. Pulmonary embolism. -He is on Warfarin and his INR is being monitored by Coumadin clinic at [facility]. TRAM. -He uses CPAP machine and no daytime sleepiness. Insomnia. - Continue trazodone 100 MG at night. General health concerns discussed with patient. Patient seen and examined with PA. Agree with the above mentioned assessment and plan 09/02/2023 Obstructive sleep apnea (adult) (pediatric) (ICD-10 - G47.33) Rio is a 52-year-old gentleman with CHF, hypertension, hyperlipidemia, generalized anxiety disorder and DM2 here for follow up. Plan is as follows: Hypertension with heart disease. -Blood pressure significantly improved at this point. Continue hydralazine 25 MG twice a day, Carvedilol 25 MG BID and amlodipine 5 mg daily. Monitor blood pressure at home. Cerebral infarction. -There is no residual deficits at this point. He is currently on warfarin and aspirin. He follows up with neurologist. Type II diabetes mellitus with neuropathy. -He is on right medications. Hyperlipidemia. -Continue Atorvastatin 10 MG at night. CHF. -He does not appear to be in volume overload. He is on right medications. Continue Farxiga 5MG. Anxiety disorder/depressio n. -Continue Prozac 10 MG. Continue current regimen. He is seeing a therapist once a week and he also sees psychiatry. He is not suicidal or homicidal. Polyneuropathy. -Continue Topiramate 100 MG. He uses a cane to walk. Pulmonary embolism. -He is on Warfarin and his INR is being monitored by Coumadin clinic at [facility]. TRAM. -He uses CPAP machine and no daytime sleepiness. Insomnia. - Continue trazodone 100 MG at night. General health concerns discussed with patient. Patient seen and examined with PA. Agree with the above mentioned assessment and plan 11/21/2023 Hyperlipidemia, unspecified (ICD-10 - E78.5) Rio is a 52-year-old gentleman with CHF, hypertension, hyperlipidemia, generalized anxiety disorder and DM2 here for follow up. Plan is as follows: Hypertension with heart disease. His blood pressure is running high in the office today. Cut back on sodium intake. Advised appropriate hydration, cardio exercises and weight loss. His blood pressure was running high and repeat blood pressure was normal. . Continue hydralazine 25 MG twice a day, Carvedilol 25 MG BID and amlodipine 5 mg daily. Cerebral infarction. There is no residual deficits at this point. He is currently on warfarin and aspirin. He follows up with neurologist. Type II diabetes mellitus with neuropathy. He is on right medications. He has seen an garment inspector for the past year. Foot care discussed. check A1c. Hyperlipidemia. Continue Atorvastatin 10 MG at night. CHF. He does not appear to be in volume overload. He is on right medications. Continue Farxiga 5MG and Entresto and advised to weigh himself every day and avoid sodium. Anxiety disorder/depressio n. Continue Prozac 10 MG. Continue current regimen. He is seeing a therapist once a week and he also sees psychiatry. He is not suicidal or homicidal. Polyneuropathy. Continue Topiramate 100 MG. He uses a cane to walk. he is also given a prescription for lidocaine cream Pulmonary embolism. He is on Warfarin and his INR is being monitored by Coumadin clinic at [facility]. TRAM. He uses CPAP machine and no daytime sleepiness. Insomnia. Continue trazodone 100 MG at night. General health concerns discussed with patient. Scribe services used to formulate this note under HIPAA compliance and under [place] law mandated for scribe services. Patient aware of service. Verbal consent and written consent taken from the patient. Patient understands and verbalizes understanding of the scribes services and all questions answered regarding scribes services. Patient agrees to use of scribes services. 02/25/2024 Hyperlipidemia, unspecified (ICD-10 - E78.5) Rio is a 53-year-old gentleman with CHF, hypertension, hyperlipidemia, generalized anxiety disorder and DM2 here for follow up. Plan is as follows: Hypertension with heart disease. -His blood pressure is running high in the office today. Cut back on sodium intake. Advised appropriate hydration, cardio exercises and weight loss. His blood pressure was running high and repeat blood pressure was still high. Increased amlodipine to 7.5mg. Continue hydralazine 25 MG twice a day, Carvedilol 25 MG BID. we will check BP in 1 week. -Check comp Cerebral infarction. -There is no residual deficits at this point. He is currently on warfarin and aspirin. He follows up with neurologist. Type II diabetes mellitus with neuropathy. - A1c increased from 7.0 to 9.3. States that he has been compliant with medications. I have increased Farxiga to 10mg, we will also start patient on Mounjaro. He is on right medications. He has seen an garment inspector for the past year. Foot care discussed. check A1c. Hyperlipidemia. Continue Atorvastatin 10 MG at night. CHF. -He does not [...] is being monitored by Coumadin clinic at [facility]. TRAM. -He uses CPAP machine and [...] on right medications. He has seen an garment inspector for the past year. Foot care discussed. [...] is being monitored by Coumadin clinic at [facility]. TRAM. -He uses CPAP machine and no daytime sleepiness. Insomnia. -Continue trazodone 100 MG at night. General health concerns discussed with patient. I have rendered the services for this patient under direct supervision of Dr. Mock, who did not see the patient but was available upon request 02/25/2024 Male erectile dysfunction, unspecified (ICD-10 - N52.9) Rio is a 53-year-old gentleman with CHF, hypertension, hyperlipidemia, generalized anxiety disorder and DM2 here for follow up. Plan is as follows: Hypertension with heart disease. -His blood pressure is running high in the office today. Cut back on sodium intake. Advised appropriate hydration, cardio exercises and weight loss. His blood pressure was running high and repeat blood pressure was still high. Increased amlodipine to 7.5mg. Continue hydralazine 25 MG twice a day, Carvedilol 25 MG BID. we will check BP in 1 week. -Check comp Cerebral infarction. -There is no residual deficits at this point. He is currently on warfarin and aspirin. He follows up with neurologist. Type II diabetes mellitus with neuropathy. - A1c increased from 7.0 to 9.3. States that he has been compliant with medications. I have increased Farxiga to 10mg, we will also start patient on Mounjaro. He is on right medications. He has seen an garment inspector for the past year. Foot care discussed. check A1c. Hyperlipidemia. Continue Atorvastatin 10 MG at night. CHF. -He does not [...] is being monitored by Coumadin clinic at [facility]. TRAM. -He uses CPAP machine and [...] on right medications. He has seen an garment inspector for the past year. Foot care discussed. [...] is being monitored by Coumadin clinic at [facility]. TRAM. -He uses CPAP machine and [...] on right medications. He has seen an garment inspector for the past year. Foot care discussed. [...] is being monitored by Coumadin clinic at [facility]. TRAM. -He uses CPAP machine and no daytime sleepiness. Insomnia. -Continue trazodone 100 MG at night. General health concerns discussed with patient. I have rendered the services for this patient under direct supervision of Dr. Mock, who did not see the patient but was available upon request Plan Of Treatment Pending Test Test Name Order Date Echocardiogram 12/25/2021 Electrocardiogram (EKG) 09/20/2017 AST (SGOT) 10/04/2017 ALT (SGPT) 10/04/2017 Stool Culture 01/26/2022 CBC 12/23/2019 Stool Culture -O&P 01/26/2022 BASIC METABOLIC PANEL 02/08/2022 BUN 12/26/2018 C. DIFFICILE TOXIN 01/26/2022 CBC (COMPLETE BLOOD COUNT) 12/17/2019 COMPREHENSIVE METABOLIC PANEL 02/13/2019 COMPREHENSIVE METABOLIC PANEL 06/15/2021 COMPREHENSIVE METABOLIC PANEL 03/21/2022 CREATININE 12/26/2018 HEMOGLOBIN A1C 06/15/2021 HEMOGLOBIN A1C 04/23/2019 HEMOGLOBIN A1C 02/13/2019 LIPID PANEL 02/13/2019 LIPID PANEL 06/15/2021 MICROALBUMIN, URINE 06/15/2021 MICROALBUMIN, URINE 02/13/2019 PROTIME PROFILE 12/26/2018 PROTIME PROFILE 06/29/2021 FECAL WHITE CELLS 01/26/2022 PT/INR 10/09/2017 PT/INR 05/01/2018 PT/INR 10/04/2017 URINALYSIS 07/04/2018 Basic Metabolic Panel 12/23/2019 Chlamydia and Gonorrhea, Urine (APTIMA) 07/04/2018 Hemoglobin A1C 12/23/2019 Hemoglobin A1C 12/19/2017 Hemoglobin A1C 05/01/2018 Hemoglobin [id number] 06/26/2024 Urinalysis, Routine-[id number] 07/16/2024 Lipid Panel-[id number] 06/26/2024 Comp. Metabolic Panel [id number] Written Authorization 06/09/2024 Next Appt Details Provider Name:TORRI MOCK , 09/16/2024 10:45:00 AM, [address] [place] [address], [phone], Insurance Providers Payer Name Payer Address Payer Phone Subscriber Number Group Number Insured Name Patient Relationship to Insured Coverage Start Date Coverage End Date [facility] [address] [place] [address] [id number] Ayden Bear Self - patient is the insured Medications Administered Medication Instructions Date of Administration Dosage Notes Vitamin B-12 05/27/2020 Medical (General) History Medical History History ICD Code hypertension, benign [id number] diabetes mellitus type 2 Class III obesity [...] and question of amyloid in 2019 at [facility] Lactic acidosis acute kidney injury 2021 TAMAR- Talk to Giovanni Nichols Therapist CVA with no residual deficit Surgical History Surgery Date(Month/Year) cholecystectomy cardiac cath Hospitalization History Reason Date(Month/Year) antonio lactic acidosis 2021 blood clot in lung
--- OUTSIDE RECORDS SUMMARY | 2024-08-27 15:02 | XMS_ITS | Clinical Summary ---
Author Organization [address] [facility] Address [address] [place] [address] Phone Care Team Providers Care High School Professional Name Role Phone Brandin Valdez MD Primary Care Provider [phone] Allergies Active Allergy Reactions Criticality Noted Date [...] spironolactone (ALDACTONE) 25 mg tabletIndication s:Cardiomyopathy , unspecified (CMS/HCC V24, CMS/HCC V28),Personal history of other endocrine, nutritional and metabolic disease TAKE 1 TABLET BY MOUTH EVERY DAY 90 tablet 1 06/15/2024 Active Active Problems Problem Noted Date Diagnosed Date [place] (congestive heart failure) [place] [place] [facility] V28) 03/01/2024 Hypertension 03/01/2024 Cerebrovascular accident [place] [place] [facility] [place] 28) 03/01/2024 Orthostatic hypotension 03/01/2024 Cardiomyopathy [place] [place] [facility] [place]) 2023 HLD (hyperlipidemia) 03/01/2024 Major depression in remission ([facility] [place]) 02/13 Asthma 03/01/2024 Dizziness 03/01/2024 Encounters Date Type Department Care Team Description 08/26/[address] [place] [address] Clint Alfredo NP No Call No Show 08/14/[address] [place] [address] lCint Alfredo NP No Call No Show (Letter sent) 06/15/2024 9:00 AM EST Office Visit [facility] - [place] [address] [place] [address] [place] [address] Yunier Saldivar DPM Controlled type 2 diabetes with neuropathy ([facility] [place], [facility] V28) (Primary Dx); Venous insufficiency; Hammertoes of both feet; Dermatophytosis, nail from Last 3 Months Immunizations Name Administration Dates Next Due Moderna SARS-CoV-2 COVID-19, mRNA, LNP-S, preservative free 03/11/2021 Surgical History Surgery Date Site/Laterality Comments CHOLECYSTECTOMY PROCEDURE: HISTORICAL CHOLECYSTECTOMY Medical History Medical History Date Comments CHF (congestive heart failur e) [place] [place] [facility] [place] DX:CHF (congestive heart whitney lure) ([facility]) Covid-19 DX:COVID-19 H/O insulin dependent diabetes mellitus DX:H/O insulin dependent diabetes mellitus Hypertension DX:Hypertension Asthma DX:Asthma History of pulmonary embolus (PE) DX:History of pulmonary embolus (PE) History of DVT (deep vein thrombosis) DX:History of DVT (deep vein thrombosis) H/O transient cerebral ischemia DX:H/O transient cerebral ischemia HLD (hyperlipidemia) DX:HLD (hyp erlipidemia) Type 2 diabetes mellitus (CM S/HCC V24, CMS/HCC V28) DX:Type 2 diabetes mellitus (HCC) History of [...] Description 09/03/2024 2:40 PM EDT Office Visit [facility] [address] [facility] [address] [place] [phone] Tangela Thacker NP [address] [facility] [address] [place] [address] 09/16/2024 1:45 PM EDT Office Visit Orthopedic Surgery - [place] [address] 175 [facility] 250 [place] [phone] Yunier Saldivar DPM [address] [address] Health Maintenance Due Date Last Done Comments [...] BMP Blood Test abstracted us Historical Provider MD HEALTH MAINTENANCE Final Result from Last 3 Months or Most Recently Relevant to Health Maintenance Insurance [facility] [employer] Advance Directives Documents on File Type Date Recorded Patient 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
--- OUTSIDE RECORDS SUMMARY | 2024-08-27 15:02 | XMS_ITS | Clinical Summary ---
Author Organization [facility] Address [address] [place] [address] Phone Care Team Providers Care Finish Off Operator Name Role Phone Brandin Valdez MD Primary Care Provider [phone] Allergies Active Allergy Reactions Criticality Noted Date [...] colonoscopy in 2028 Pulmonary embolism 12/09/2017 Immunizations Immunization Administration Dates Next Due Fanta SARS-COV-2 11/02/2020 [...] Due Date Last Done Comments Hepatitis B Vaccine (1 of 3 - 19+ 3-dose series) 12/10 Pneumococcal Vaccine: 50+ Years (1 of 2 - PCV) 992 Colorectal Cancer Screening: Annual FOBT 2021 Colorectal Cancer Screening: Colonoscopy 2021 Colorectal Cancer Screening: Sigmoidoscopy 2021 Influenza Vaccine (Season Ended) 2024 Insurance [place] Care Teams Finish Off Operator Relationship Specialty Start Date End Date Brandin Valdez MD [address] [place] [address] PCP - General Internal Medicine 04/25/22
--- OUTSIDE RECORDS SUMMARY | 2024-08-27 15:02 | XMS_ITS | Clinical Summary ---
Author Organization [facility] Address [address] [place] [address] Care Team Providers Care International Nurse Name Role Phone Brandin Valdez MD [...] age to complete this topic Care Teams International Nurse Relationship Specialty Start Date End Date Brandin Valdez MD [address] [place] [address] PCP - General Internal Medicine 06/14/22
--- OUTSIDE RECORDS SUMMARY | 2024-08-27 15:02 | XMS_ITS | Data Portability ---
Author Organization [facility], [address] Address [address] [place] [address] Care Team Providers Care Irrigationist Designer Name Role Phone TORRI MOCK Primary Care [...] evaluation and treatment. 2022 023 acardinal 3 [facility] Emergency Room, [address] [place], [address], 10:47:54 Procedures None recorded. Surgeries None recorded. Imaging None recorded. Medication Orders None recorded. Patient TargetsNo targets recorded. Patient Instructions Encounter Date Encounter Id Patient Instructions Last Modified By Organization Details Last Modified Time 05/11/2022 [id number] cough: care instructions javid Not available 05/11/2022 [...] Address Organization Details Recorded Time Hypertensive disorder 03846242 Active KARTHIK BURT-RIVE RA null, [place] - [facility] 3 10:17:52 Diabetes mellitus 22394942 Active KARTHIK BURT-RIVE RA null, PA - [facility] 3 10:18:01 Neuropathy 563452367 Active KARTHIK BURT-RIVE RA null, PA - [facility] 3 10:18:10 Depressive disorder 27909521 Active KARTHIK BURT-RIVE RA null, PA - [facility] 3 10:18:18 Anxiety 18106943 Active KARTHIK BURT-RIVE RA null, PA - [facility] 3 10:18:26 Pulmonary embolism 71124140 Active KARTHIK BURT-RIVE RA null, PA - [...] Name and Address Organization Details Recorded Time 181015 vancomyci n medicatio n hives Not available Not available 05/11/2022 [id number] RxNorm KARTHIK BURT-RIVE RA null, [place] - [...] Updated DateTime 3 167.64 cm 36.3 kg/m2 759569. 28 g 0 18 /min 98 % 98 % 74 /min 98 [degF] 140 mm[Hg] 98 mm[Hg] KARTHIK Platt [facility] 3 10:23:25 Social History Question Answer Notes LastModified by Organizat ion Details LastModified Time Tobacco Smoking Status Never Smoker [facility] 05/11/2022 10:20:25 Have You Had Direct Contact, Or Contact During Intimacy, With Monkeypox Rash, Scabs, Or Body Fluids From A Person With Monkeypox? No Information not available 05/11/2022 Have You Recently Traveled Abroad? No Information not available 05/11/2022 Sex: Unknown Functional Status Question Answer Note LastModified by Organizat ion Details LastModified Time Do you use any illicit or recreational drugs? No Information not available 05/11/2022 Do you or have you ever used any other forms of tobacco or nicotine? No Information not available 05/11/2022 What is your level of alcohol consumption? None Information not available 05/11/2022 Mental Status None recorded. Family History Relationship [...] PF, 0.5 mL 11/02/2020 completed TERRY Nieves - [facility] 05/11/2022 10:15:17 Past Encounters Encounter ID Performer Location Encounter Start Date Encounter Closed Date Diagnosis/Indication Diagnosis SNOMED-CT Code Diagnosis ICD10 Code Diagnosis Note [id number] [address] [place] [address] 01/20/2022 14:45:34 01/20/2022 20:10:37 [id number] Shimon King NP [address] [place] [address] 05/11/2022 09:28:36 05/11/2022 10:47:54 Dyspnea on exertion 66593643 R06.09 Health Concerns Section Related Observation LastModified by Organization Detai ls LastModified Time None Recorded Concern Status LastModified by Organization Details LastModified Time None Recorded Advance Directives Directive None Recorded Payers Insurance Date Sequence Insurance Name Policy Number Policy Henriquez Covered Member ID Henriquez Member ID Guarantor Name 05/11/2022 1 [employer] - TOGETHER WITH [employer] (MEDICAID REPLACEMENT - HMO) [id number] Ayden Bear [id number] Ayden Bear Notes Date Note Type Note Provider Name and Address Organization Details Recorded Time 05/11/2022 text/html CoughReported bypatient.Notes:sharon sinhg came in stating he is getting SOB and need d dimer test to rule out any blood clot . his coumadin was stop temporarily due to dental work and now patient is worried about getting clots. Shimon King NP [address] [place], [address], [place] - [facility] 05/11/2022 10:49:17
--- NOTE | 2024-08-27 15:18 | HO.NEPHOV_ITS ---
Vital Signs 08/27/24 15:19 Height 5 ft 6 in Weight 328 lb BMI 52.9 BP 160/110 H Blood Pressure Location Lt brachial Position Sitting Pulse 107 H Pulse Source Pulse Oximeter Pulse Oximetry (%) 95 Oxygen Delivery Method Room Air Intake Visit Reasons: 1 MO FU-LV Ointment Mill Tender Required: No Accompanied by: Self / Same As Patient Allergies vancomycin Allergy (Verified 08/27/24 15:19) Unknown HPI Comments Details: I had the delight of seeing Mr Bear in follow up for resistant hypertension. He is 53 years of age and currently unemployed. He has been having blood pressure well over 20 years and had been on medications, which he is compliant with. He denies excess sodium in the diet. He has H/O retinopathy and CVA. He is a diabetic & has obstructive sleep apnea and is on CPAP which he claims to be compliant with. His blood sugar is not well controlled. He denies any proteinuria or renal dysfunction. He has not had any Doppler of his renal arteries. He denies any history of cocaine use. He had 24 hour BPM which showed uncontrolled BP. He denies any other systemic complaints other than what has been mentioned above. He is quite concerned about her ongoing poor blood pressure control. [facility] Medical History HTN (hypertension) Unspecified mononeuropathy of bilateral lower limbs Solitary pulmonary nodule Cerebral infarction Nontraumatic intracerebral hemorrhage, unspecified Other pulmonary embolism without acute cor pulmonale Retinal artery branch occlusion of right eye Polyneuropathy Hereditary and idiopathic neuropathy, unspecified TRAM (obstructive sleep apnea) Insomnia Other transient cerebral ischemic attacks and related syndromes Male erectile disorder MDD (major depressive disorder), recurrent episode, severe Vitamin B12 deficiency anemia due to intrinsic factor deficiency Tinea pedis Generalized anxiety disorder Hyperlipidemia Type II diabetes mellitus Neuropathy CHF (congestive heart failure) CVA (cerebral vascular accident) Cerebellar infarction Abnormal CT scan, head Surgical History Hx of cardiac cath History of cholecystectomy Family History Father Diabetes Social History Household Members: None Housing: Apartment Do you presently have visiting nurse or other home services: No Alcohol intake: former Comment: 1:1 for SI Patient Tobacco Use Status: Never used Tobacco e-Cigarette/Vaping Use: Never Used service: No Sexual orientation: Straight/Heterosexual Review of Systems Const All systems reviewed & are unremarkable except as noted in HPI and below Physical Exam Vital Signs: Last Vital Signs Pulse 107 H 08/27/24 15:19 BP 160/110 H 08/27/24 15:19 Pulse Ox 95 08/27/24 15:19 Oxygen Delivery Method Room Air 08/27/24 15:19 BMI result Body Mass Index 52.9 Const General: comfortable and no acute distress Orientation/consciousness: patient oriented x3 HEENT Head: Yes normocephalic Mouth: Normal oral and palatal mucosa present Eyes EOM: EOMs intact bilaterally Neck Neck: Yes supple Resp Auscultation: clear to auscultation bilaterally Cardio Jugular venous distension: no JVD Rate: regular rate GI Palpation (GI): Soft to palpation Auscultation: normal bowel sounds General: Yes no CVA tenderness Back/Spine/Pelvis Back: no CVA tenderness Skin General skin exam: no rashes or lesions noted Neuro General: patient oriented x3 and moves all extremities Extrem General: Yes no pedal edema Results Reviewed Nephrology Results: Sodium 142 mmol/L (135-145) 02/17/23 Potassium 3.5 mmol/L (3.3-5.1) 02/17/23 Chloride 107 mmol/L (96-108) 02/17/23 Carbon Dioxide 27 mmol/L (22-29) 02/17/23 BUN 28 mg/dL (9-16) H 02/17/23 Creatinine 1.04 mg/dL (0.5-1.4) 02/17/23 Calcium 9.1 mg/dL (8.4-10.2) 02/17/23 Assessment & Plan Assessment & Plan (1) HTN (hypertension): Code(s): I10 - Essential (primary) hypertension Category: Medical Qualifiers: Hypertension type: primary hypertension Qualified Code(s): I10 - Essential (primary) hypertension Plan Life style modifications including weight loss , exercise and low sodium diet Continue CPAP; 24 hour BPM reviewed May need Doppler of renal arteries; Renal function normal On Entresto as well as Spironolactone/ Farxiga; Serum Potassium OK Needs to follow up his last ECHO. D/C ed Amlodipine at the last visit I increased his Nifedipine to 60 mg daily Answered all questions; Follow up given Medications: Changed From nifedipine ER 30 mg PO DAILY 30 tabs 4RF To nifedipine ER 60 mg PO DAILY 30 tabs 4RF Coding Level of Care Code Est Pt Level 4 (03811) Diagnoses Primary hypertension I10 Hypertension type: primary hypertension
[2024-08-27 15:19] VITALS: BP 160/110; PULSE 107; O2SAT 95; BMI 52.9
== END 2024-08-27 15:46 | disposition home or self-care (01) ==
LOC: HO.HKAS 14:26
PROVIDERS: Visit Provider Internal Medicine Nephrology
DX: I10 Essential (primary) hypertension (principal)
CPT/HCPCS: 99214

== ENCOUNTER → 2024-08-27 14:26 | Outpatient (BNVA) | payer OTHER, SELFPAY | PROVIDERS: Visit Provider Internal Medicine Nephrology | DX: I10 Essential (primary) hypertension (principal) | CPT/HCPCS: 99212 ==